=== PATIENT | female | born 1945 | race Caucasian/White ===

== ENCOUNTER → 2016-05-09 | Outpatient (CLI) | payer MEDICARE ==
--- NOTE | 2016-05-09 11:05 | FL ---
EXAMINATION: Cervical and Thoracic Esophagram DATE OF EXAM: 05/09/2016 10:18 AM CLINICAL INDICATION: 71-year-old female with coughing for one year. History of Ambrose fundoplication one year ago as well. Total fluoroscopy time: 1 minute 30 seconds. COMPARISON: 06/20/2015 FINDINGS: The swallowing mechanism is normal and hypopharyngeal anatomy is preserved. The cervical and thoracic portions have a normal course and caliber. Mild tertiary peristaltic contra ctions are noted in the radiographic esophagus. The mucosa is normal and no persistent filling defect is encountered. Patient with prior Ambrose fundoplication. No recurrent hernia seen. Gastroesophageal reflux could not be elicited during the course of the exam with Valsalva and positio nal maneuvers. IMPRESSION: Status post Ambrose fundoplication. No recurrent hernia or other discrete abnormality could be identif ied.
== END | disposition home or self-care (01) ==
LOC: RADFLWHC 09:19
PROVIDERS: ATTEND Surgery
DX: K21.9 Gastro-esophageal reflux disease without esophagitis (principal); Z98.890 Other specified postprocedural states
CPT/HCPCS: 74220

== ENCOUNTER 2016-05-10 06:58 | Day surgery (SDC) | payer MEDICARE ==
[2016-05-08 15:53] VITALS: BMI 34.5
[~2016-05-10 06:58] MED LIST: LACTATED RINGERS 1,000 ML IV SCH
[2016-05-10 07:12] VITALS: TEMP 97.1
[2016-05-10 07:25] LABS: Glucose,Whole Blood 92 mg/dL (75-99)
[2016-05-10] MEDS ORDERED: PROPOFOL 10 MG/ML 20 ML VIAL IV ONE (07:47)
--- NOTE | 2016-05-10 07:54 | P.GSHP ---
History of Present Illness H&P Date: 05/10/16 Chief Complaint: Coughing, history of hiatal hernia repair This a 71-year-old female who has complaints of coughing. Patient denies any GERD and dysphagia. However she has a significant cough. Her recent esophagram shows no evidence of a recurrent hiatal hernia or reflux. There is no obstruction on her upper GI. - Constitutional Constitutional: Reports as per HPI Past Medical History Past Medical History: Asthma, Diabetes Mellitus, GERD/Reflux, Hypertension, Liver Disease, Pneumonia, Thyroid Disorder Additional Past Medical History / Comment(s): DYSPHAGIA, hx migraines, LEFT " eye stroke" hiatal hernia, NON ALCHOLIC CIRRHOSIS, arthritis, diet control diabetic, ulcer, occasional diarrhea, "severe cough from acid reflux" History of Any Multi-Drug Resistant Organisms: None Reported Past Surgical History: Breast Surgery, Cholecystectomy, Hysterectomy Additional Past Surgical History / Comment(s): rectocele, breast biopsies, dmitri fundoplication Past Anesthesia/Blood Transfusion Reactions: Postoperative Nausea & Vomiting ( PONV) Past Psychological History: Anxiety, Depression Smoking Status: Former smoker Past Alcohol Use History: None Reported Additional Past Alcohol Use History / Comment(s): quit smoking 1986, smoked for 25 yrs- < 1 PPD Past Drug Use History: None Reported - Past Family History Mother Family Medical History: Cancer Additional Family Medical History / Comment(s): lung Father Family Medical History: Cancer Additional Family Medical History / Comment(s): lung Brother(s) Family Medical History: Cancer Additional Family Medical History / Comment(s): colon Medications and Allergies Home Medications Medication Instructions Recorded Confirmed Type ALPRAZolam [Xanax] 0.5 mg PO HS 02/28/15 05/10/16 History Albuterol Inhaler [Ventolin 2 puff INHALATION QID PRN 02/28/15 05/10/16 History Inhaler] Atenolol 100 mg PO BID 02/28/15 05/10/16 History Calcium Carbonate/Vitamin D3 2 each PO BID 02/28/15 05/10/16 History [Calcium 600 + Vit D Tablet] Citalopram Hydrobromide [CeleXA] 20 mg PO HS 02/28/15 05/10/16 History Levothyroxine Sodium [Synthroid] 50 mcg PO DAILY 02/28/15 05/10/16 History Montelukast [Singulair] 10 mg PO HS 02/28/15 05/10/16 History Sayre-3 Fatty Acids/Fish Oil [Fish 2 tab PO DAILY 02/28/15 05/10/16 History Oil 1,000 mg Softgel] diphenhydrAMINE [Benadryl] 25 mg PO HS 04/04/15 05/10/16 History Omeprazole 40 mg PO W/SUPPER 11/14/15 05/10/16 History Vitamin E (Dl,Tocopheryl Acet) 400 unit PO DAILY 11/17/15 05/10/16 History [Vitamin E] Aspirin [Adult Low Dose Aspirin EC] 81 mg PO DAILY 05/08/16 05/10/16 History Allergies Allergy/AdvReac Type Severity Reaction Status Date / Time adhesive tape Allergy blisters Verified 05/08/16 15:30 morphine Allergy Vomiting Verified 05/08/16 15:30 Penicillins Allergy numbness Verified 05/08/16 15:30 of lips, hands , feet prochlorperazine Allergy Unknown Verified 05/08/16 15:30 [From Compazine] prochlorperazine edisylate Allergy Unknown Verified 05/08/16 15:30 [From Compazine] prochlorperazine maleate Allergy Unknown Verified 05/08/16 15:30 [From Compazine] esomeprazole magnesium AdvReac Severe BURNING Verified 05/08/16 15:30 [From Nexium] PAIN Surgical - Exam Vital Signs Temp Pulse Resp BP Pulse Ox 97.1 F L 66 18 149/65 93 L 05/10/16 07:10 05/10/16 07:10 05/10/16 07:10 05/10/16 07:10 05/10/16 07:10 - General well developed, no distress - Eyes PERRL - ENT normal pinna - Neck no masses - Respiratory normal expansion - Cardiovascular Rhythm: regular - Abdomen Abdomen: soft, non tender Assessment and Plan Plan: History of hiatal hernia, Coughing. We'll perform EGD
--- NOTE | 2016-05-10 08:00 | P.OP ---
Date of Procedure: 05/10/16 Preoperative Diagnosis: Coughing Postoperative Diagnosis: Mild antral gastritis No evidence of recurrent hiatal hernia No evidence of esophagitis Procedure(s) Performed: EGD Anesthesia: MAC Surgeon: Lc Bailon Pathology: other (Antrum) Condition: stable Disposition: PACU Description of Procedure: The patient's placed on the endoscopy table in the lateral position. She received IV sedation. The gastroscope some placed oropharynx passed into the esophagus and into the stomach. Scope was then placed through the pylorus. The first and second portion of the duodenum appeared normal. Scope was then brought back the antrum this appeared mildly inflamed. A biopsies performed. The scope was unretroflexed and the remainder of the stomach appeared normal. There is no evidence of any inflammation stomach. There is no evidence of a hiatal hernia. The patient a previous fundal plication. The wrap appeared to be in the appropriate position. The distal esophagus appeared normal. The GE junction was at 39 cm. There is no evidence of esophagitis. The proximal esophagus appeared normal. The scope was withdrawn for patient.
[2016-05-10 08:12] LABS: Glucose,Whole Blood 95 mg/dL (75-99)
[2016-05-10] MEDS ORDERED: ONDANSETRON 4 MG/2 ML VIAL IVP ONE (08:17)
[2016-05-10 08:20] VITALS: RESP 16
[2016-05-10 08:33] VITALS: BP 159/76; PULSE 61
== END 2016-05-10 08:52 | disposition home or self-care (01) ==
LOC: ORWHC2ENDO 06:58
PROVIDERS: ATTEND Surgery
DX: K29.50 Unspecified chronic gastritis without bleeding (principal); R05 Cough; Z87.19 Personal history of other diseases of the digestive system; K21.9 Gastro-esophageal reflux disease without esophagitis; J45.909 Unspecified asthma, uncomplicated; J44.9 Chronic obstructive pulmonary disease, unspecified; I10 Essential (primary) hypertension; E07.9 Disorder of thyroid, unspecified; F41.9 Anxiety disorder, unspecified; F32.9 Major depressive disorder, single episode, unspecified; F39 Unspecified mood [affective] disorder; Z79.82 Long term (current) use of aspirin; Z79.899 Other long term (current) drug therapy; Z88.5 Allergy status to narcotic agent; Z88.0 Allergy status to penicillin; Z88.8 Allergy status to other drugs, medicaments and biological substances; Z91.048 Other nonmedicinal substance allergy status; Z87.891 Personal history of nicotine dependence
CPT/HCPCS: 88305; 88342; 43239; J2405; J2704

== ENCOUNTER → 2016-05-31 | Outpatient (CLI) | payer MEDICARE ==
--- NOTE | 2016-06-01 08:48 | MM ---
Reason for exam: screening (asymptomatic). Last mammogram was performed 1 year ago. History: Patient is postmenopausal. Family history of breast cancer in maternal aunt and breast cancer in maternal cousin. Benign right mammotome panel of the right breast, March 07, 2012. Benign stereotactic core biopsy of the left breast, October 21, 2003. Benign excisional biopsy of the right breast, October 05, 1999. Excisional biopsy of the left breast, 1977. Core biopsy of the left breast. Took estrogen for 10 years. Took progesterone for 10 years. Physical Findings: A clinical breast exam by your physician is recommended on an annual basis and results should be correlated with mammographic findings. MG 3D Screening Mammo W/Cad Bilateral CC and MLO view(s) were taken. Prior study comparison: May 31, 2015, bilateral MG screening mammo w CAD. March 12, 2014, bilateral MG screening mammo w CAD. The breast tissue is heterogeneously dense. This may lower the sensitivity of mammography. There is no discrete abnormality. Previous mammotome biopsy within the right and left breast. No significant changes when compared with prior studies. ASSESSMENT: Benign, BI-RAD 2 RECOMMENDATION: Routine screening mammogram of both breasts in 1 year.
== END | disposition home or self-care (01) ==
LOC: RADMAMWWP 11:07
PROVIDERS: ATTEND Family Medicine
DX: Z12.31 Encounter for screening mammogram for malignant neoplasm of breast (principal)
CPT/HCPCS: 77063; G0202

== ENCOUNTER → 2016-11-20 | Outpatient (CLI) | payer MEDICARE ==
--- NOTE | 2016-11-20 09:53 | FL ---
EXAMINATION TYPE: FL UGI air w esophagus DATE OF EXAM: 11/20/2016 8:55 AM COMPARISON: May 09, 2016 CLINICAL HISTORY: Difficulty in swallowing. Preliminary view of the abdomen reveals a normal bowel gas pattern. Upper GI examination was performed according to the single contrast technique. Barium was swallowed without difficulty or delay. Esophageal peristalsis and motility are within normal limits. Postsurgical changes of Matthew fundoplication. There is no evidence for esophagitis, intraluminal mas s, hiatal hernia or gastroesophageal reflux. The stomach has a normal appearance in terms of its siz e, shape and location. No gastric filling defects or ulcer craters are seen. The duodenal bulb and sweep are also free of intraluminal lesion or ulcer crater. Incidental left diverticulum transverse d uodenum and proximal duodenum. IMPRESSION: No evidence for recurrent hiatal hernia or gastroesophageal reflux identified during the course of e study.
== END ==
LOC: RADFLMAIN 08:04
PROVIDERS: ATTEND Surgery
DX: R13.10 Dysphagia, unspecified (principal)
CPT/HCPCS: 74246

== ENCOUNTER → 2017-06-03 | Outpatient (CLI) | payer MEDICARE ==
--- NOTE | 2017-06-04 11:38 | MM ---
Reason for exam: screening (asymptomatic). Last mammogram was performed 1 year ago. History: Patient is postmenopausal. Family history of breast cancer in maternal aunt and breast cancer in maternal cousin. Benign right mammotome panel of the right breast, March 07, 2012. Benign stereotactic core biopsy of the left breast, October 21, 2003. Benign excisional biopsy of the right breast, October 05, 1999. Excisional biopsy of the left breast, 1977. Core biopsy of the left breast. Took estrogen for 10 years. Took progesterone for 10 years. Physical Findings: A clinical breast exam by your physician is recommended on an annual basis and results should be correlated with mammographic findings. MG 3D Screening Mammo W/Cad Bilateral CC and MLO view(s) were taken. Prior study comparison: May 31, 2016, bilateral MG 3d screening mammo w/cad. May 31, 2015, bilateral MG screening mammo w CAD. The breast tissue is heterogeneously dense. This may lower the sensitivity of mammography. No significant changes when compared with prior studies. ASSESSMENT: Benign, BI-RAD 2 RECOMMENDATION: Routine screening mammogram of both breasts in 1 year.
== END | disposition home or self-care (01) ==
LOC: RADMAMWWP 10:40
PROVIDERS: ATTEND Family Medicine
DX: Z12.31 Encounter for screening mammogram for malignant neoplasm of breast (principal)
CPT/HCPCS: 77063; 77067

== ENCOUNTER → 2017-10-03 | Outpatient (CLI) | payer MEDICARE ==
--- NOTE | 2017-10-03 18:36 | US ---
EXAMINATION TYPE: US venous doppler duplex LE BI DATE OF EXAM: 10/03/2017 5:27 PM COMPARISON: NONE CLINICAL HISTORY: R60.0 Edema, M79.604 R leg pain,M79.605 L leg pain. Edema SIDE PERFORMED: Bilateral TECHNIQUE: The lower extremity deep venous system is examined utilizing real time linear array sonog po with graded compression, doppler sonography and color-flow sonography. VESSELS IMAGED: External Iliac Vein (EIV) Common Femoral Vein Deep Femoral Vein Greater Saphenous Vein * Femoral Vein Popliteal Vein Small Saphenous Vein * Proximal Calf Veins (* superficial vessels) Right Leg: Negative for DVT Left Leg: Negative for DVT No evidence of DVT bilateral legs. IMPRESSION: Negative exam. No evidence of deep venous thrombosis in both legs.
== END | disposition home or self-care (01) ==
LOC: RADUSMAIN 16:47
PROVIDERS: ATTEND Family Medicine
DX: R60.0 Localized edema (principal); M79.604 Pain in right leg; M79.605 Pain in left leg
CPT/HCPCS: 93970

== ENCOUNTER → 2017-10-04 | Outpatient (CLI) | payer MEDICARE ==
--- NOTE | 2017-10-05 14:46 | ECHOF ---
Referral Reason:R60.0 Edema, R60.02 Shortness of breath MEASUREMENTS -------- HEIGHT: 160.0 cm WEIGHT: 90.7 kg BP: RVIDd: 3.4 cm (< 3.3) IVSd: 0.9 cm (0.6 - 1.1) LVIDd: 5.4 cm (3.9 - 5.3) LVPWd: 1.0 cm (0.6 - 1.1) IVSs: 1.5 cm LVIDs: 3.1 cm LVPWs: 1.5 cm LAESV Index (A-L): 37.00 ml/m Ao Diam: 2.8 cm (2.0 - 3.7) AV Cusp: 1.7 cm (1.5 - 2.6) LA Diam: 3.9 cm (2.7 - 3.8) MV EXCURSION: 17.007 mm (> 18.000) MV EF SLOPE: 129 mm/s (70 - 150) EPSS: 0.6 cm MV E Carlo: 1.31 m/s MV DecT: 243 ms MV A Carlo: 0.79 m/s MV E/A Ratio: 1.66 RAP: 5.00 mmHg RVSP: 49.39 mmHg FINDINGS -------- Sinus rhythm. This was a technically adequate study. The left ventricular size is normal. Left ventricular wall thickness is normal. Overall left vent ricular systolic function is normal with, an EF between 60 - 65 %. The right ventricle is mildly enlarged. LA is moderately dilated 34-39 ml/m2 RA appears enlarged. Aortic valve is trileaflet and is mildly thickened. There is no evidence of aortic regurgitation. There is no evidence of aortic stenosis. The mitral valve leaflets are mildly thickened. There is trace to mild mitral regurgitation. Mild tricuspid regurgitation present. There is mild pulmonary hypertension. The right ventricular systolic pressure, as measured by Doppler, is 49.39mmHg. Trace/mild (physiologic) pulmonic regurgitation. The aortic root size is normal. Normal inferior vena cava with normal inspiratory collapse consistent with estimated right atrial pre ssure of 5 mmHg. There is no pericardial effusion. CONCLUSIONS -------- 1. Sinus rhythm. 2. This was a technically adequate study. 3. The left ventricular size is normal. 4. Left ventricular wall thickness is normal. 5. Overall left ventricular systolic function is normal with, an EF between 60 - 65 %. 6. LA is moderately dilated 34-39 ml/m2 7. RA appears enlarged. 8. Aortic valve is trileaflet and is mildly thickened. 9. The mitral valve leaflets are mildly thickened. 10. There is trace to mild mitral regurgitation. 11. Mild tricuspid regurgitation present. 12. There is mild pulmonary hypertension. 13. The right ventricular systolic pressure, as measured by Doppler, is 49.39mmHg. 14. Trace/mild (physiologic) pulmonic regurgitation. 15. The aortic root size is normal. 16. There is no pericardial effusion. OPHTHALMIC TECH: Loyd Win RDCS
== END | disposition home or self-care (01) ==
LOC: RADECHMAIN 13:58
PROVIDERS: ATTEND Family Medicine
DX: I27.20 Pulmonary hypertension, unspecified (principal); I08.3 Combined rheumatic disorders of mitral, aortic and tricuspid valves
CPT/HCPCS: 93306

== ENCOUNTER → 2018-06-04 | Outpatient (CLI) | payer MEDICARE ==
--- NOTE | 2018-06-06 08:53 | MM ---
Reason for exam: screening (asymptomatic). Last mammogram was performed 1 year ago. History: Patient is postmenopausal. Family history of breast cancer in maternal aunt and breast cancer in maternal cousin. Benign right mammotome panel of the right breast, March 07, 2012. Benign stereotactic core biopsy of the left breast, October 21, 2003. Benign excisional biopsy of the right breast, October 05, 1999. Excisional biopsy of the left breast, 1977. Core biopsy of the left breast. Took estrogen for 10 years. Took progesterone for 10 years. Physical Findings: A clinical breast exam by your physician is recommended on an annual basis and results should be correlated with mammographic findings. MG 3D Screening Mammo W/Cad Bilateral CC and MLO view(s) were taken. Prior study comparison: June 03, 2017, bilateral MG 3d screening mammo w/cad. May 31, 2016, bilateral MG 3d screening mammo w/cad. May 31, 2015, bilateral MG screening mammo w CAD. March 12, 2014, bilateral MG screening mammo w CAD. The breast tissue is heterogeneously dense. This may lower the sensitivity of mammography. Previous mammotome biopsy in the right and left breast. Gradually increasing left breast calcifications 9 o'clock anterior depth. ASSESSMENT: Incomplete: need additional imaging evaluation, BI-RAD 0 RECOMMENDATION: Special view mammogram of the left breast. [facility] will attempt to contact patient to return for supplemental views.
== END | disposition home or self-care (01) ==
LOC: RADMAMWWP 10:44
PROVIDERS: ATTEND Family Medicine
DX: Z12.31 Encounter for screening mammogram for malignant neoplasm of breast (principal)
CPT/HCPCS: 77063; 77067

== ENCOUNTER → 2018-06-12 | Outpatient (CLI) | payer MEDICARE ==
--- NOTE | 2018-06-12 11:56 | MM ---
Reason for exam: additional evaluation requested from abnormal screening. Last mammogram was performed less than 1 month ago. History: Patient is postmenopausal. Family history of breast cancer in maternal aunt and breast cancer in maternal cousin. Benign right mammotome panel of the right breast, March 07, 2012. Benign stereotactic core biopsy of the left breast, October 21, 2003. Benign excisional biopsy of the right breast, October 05, 1999. Excisional biopsy of the left breast, 1977. Core biopsy of the left breast. Took estrogen for 10 years. Took progesterone for 10 years. Physical Findings: Nurse did not find any significant physical abnormalities on exam. MG 3D Work Up W/Cad LT CC with magnification, LM with magnification, and LM view(s) were taken of the left breast. Prior study comparison: June 04, 2018, bilateral MG 3d screening mammo w/cad. June 03, 2017, bilateral MG 3d screening mammo w/cad. The breast tissue is heterogeneously dense. This may lower the sensitivity of mammography. Finding: There are round, grouped/clustered, linear calcifications in the upper inner quadrant, anterior position of the left breast. Previous mammotome biopsy in the left breast. Increase in number of calcifications and changed since June 04, 2018 and June 03, 2017 but benign morphology. These results were verbally communicated with the patient and result sheet given to the patient on 06/12/18. ASSESSMENT: Benign, BI-RAD 2 RECOMMENDATION: Return to routine screening mammogram schedule for both breasts.
== END ==
LOC: RADMAMWWP 10:43
PROVIDERS: ATTEND Family Medicine
DX: R92.8 Other abnormal and inconclusive findings on diagnostic imaging of breast (principal)
CPT/HCPCS: 77065; G0279; 77061

== ENCOUNTER → 2018-11-19 | Outpatient (CLI) | payer MEDICARE ==
[2018-11-19 10:15] LABS: African American GFR (CKD) >90 (>60 ml/min/1.73 sqM); Blood Urea Nitrogen 14 mg/dL (7-17); Non-African American GFR(CKD) 84 (>60 ml/min/1.73 sqM)
--- NOTE | 2018-11-19 11:17 | CT ---
EXAMINATION TYPE: CT chest w con DATE OF EXAM: 11/19/2018 COMPARISON: 03/29/2015 HISTORY: Cough CT DLP: 492.3 mGycm Automated exposure control for dose reduction was used. CONTRAST: CT scan of the chest is performed with IV Contrast, patient injected with 100 mL of Isovue 300. FINDINGS: LUNGS: Mild interstitial prominence noted which may reflect a degree of interstitial edema. No focal consolidation. Scattered areas of parenchymal scarring and/or linear atelectasis. No consolidative pr ocess. There is no pleural effusion or pneumothorax seen. The tracheobronchial tree is patent. MEDIASTINUM: There are no greater than 1 cm hilar or mediastinal lymph nodes. No pericardial effusi on is seen. Thoracic aorta is of normal caliber. The heart is enlarged. Prominence of the pulmonary artery may reflect underlying pulmonary arterial hypertension. UPPER ABDOMEN: Splenomegaly with AP dimension of 15.6 cm. Changes of cirrhotic liver disease with a s mall adjacent ascites. Gallbladder surgically absent. OTHER: No additional significant abnormality is seen. IMPRESSION: 1. Cardiomegaly with prominence of the pulmonary interstitium may reflect a degree of interstitial ed beto. No pleural effusion or consolidative process. 2. Cirrhotic liver disease with splenomegaly and small amount of upper abdominal ascites.
== END | disposition home or self-care (01) ==
LOC: RADCTMAIN 09:24
PROVIDERS: ATTEND Internal Medicine Critical Care Medicine
DX: I51.7 Cardiomegaly (principal)
CPT/HCPCS: 82565; 84520; 71260; 36415; Q9967

== ENCOUNTER → 2018-12-03 | Outpatient (CLI) | payer MEDICARE ==
--- NOTE | 2018-12-04 07:15 | ECHOF ---
Referral Reason:R07.89 Chest pain MEASUREMENTS -------- HEIGHT: 160.0 cm WEIGHT: 97.5 kg BP: RVIDd: 3.2 cm (< 3.3) IVSd: 1.4 cm (0.6 - 1.1) LVIDd: 4.8 cm (3.9 - 5.3) LVPWd: 1.2 cm (0.6 - 1.1) IVSs: 1.7 cm LVIDs: 3.1 cm LVPWs: 1.9 cm LAESV Index (A-L): 39.24 ml/m Ao Diam: 2.8 cm (2.0 - 3.7) AV Cusp: 1.9 cm (1.5 - 2.6) LA Diam: 4.6 cm (2.7 - 3.8) EPSS: 1.0 cm MV E Carlo: 1.28 m/s MV DecT: 215 ms MV A Carlo: 0.64 m/s MV E/A Ratio: 1.98 AR PHT: 479 ms RAP: 5.00 mmHg RVSP: 62.79 mmHg MV EF SLOPE: 72.45 mm/s (70 - 150) MV EXCURSION: 1.96 cm (> 18.000) FINDINGS -------- Sinus rhythm. This was a technically difficult study with suboptimal apical views. The left ventricular size is normal. There is moderate concentric left ventricular hypertrophy. O verall left ventricular systolic function is normal with, an EF between 55 - 60 %. The diastolic fi lling pattern is normal for the age of the patient. The right ventricle is normal in size. Left atrium is moderately dilated by volume. The right atrium is mildly enlarged. RA appears enlarged Interatrial and interventricular septum intact. There is mild aortic valve sclerosis without stenosis. There is mild aortic regurgitation. Mild mitral annular calcification present. Moderate mitral regurgitation is present. Moderate to severe tricuspid regurgitation present. There is severe pulmonary hypertension. The r ight ventricular systolic pressure, as measured by Doppler, is 62.79mmHg. There is no pulmonic regurgitation present. The aortic root size is normal. IVC not well visualized There is no pericardial effusion. CONCLUSIONS -------- 1. Sinus rhythm. 2. This was a technically difficult study with suboptimal apical views. 3. The left ventricular size is normal. 4. There is moderate concentric left ventricular hypertrophy. 5. Overall left ventricular systolic function is normal with, an EF between 55 - 60 %. 6. The diastolic filling pattern is normal for the age of the patient. 7. The right ventricle is normal in size. 8. Left atrium is moderately dilated by volume. 9. The right atrium is mildly enlarged. 10. RA appears enlarged 11. Interatrial and interventricular septum intact. 12. There is mild aortic valve sclerosis without stenosis. 13. There is mild aortic regurgitation. 14. Mild mitral annular calcification present. 15. Moderate mitral regurgitation is present. 16. Moderate to severe tricuspid regurgitation present. 17. There is severe pulmonary hypertension. 18. The right ventricular systolic pressure, as measured by Doppler, is 62.79mmHg. 19. There is no pulmonic regurgitation present. 20. The aortic root size is normal. 21. IVC not well visualized 22. There is no pericardial effusion. YOUTH DEVELOPMENT SPECIALIST: Carrie Stein RDCS
== END | disposition home or self-care (01) ==
LOC: RADECHMAIN 12:56
PROVIDERS: ATTEND Internal Medicine Critical Care Medicine
DX: I08.3 Combined rheumatic disorders of mitral, aortic and tricuspid valves (principal); I70.8 Atherosclerosis of other arteries; I27.20 Pulmonary hypertension, unspecified
CPT/HCPCS: 93306

== ENCOUNTER → 2019-03-23 | Outpatient (CLI) | payer MEDICARE ==
--- NOTE | 2019-03-23 16:12 | CT ---
EXAMINATION TYPE: CT brain wo con DATE OF EXAM: 03/23/2019 COMPARISON: None HISTORY: headache CT DLP: [address] of the brain was performed. The ventricles, basal cisterns and sulci overlying the cerebral convexities demonstrate mild enlargem ent. There is no evidence for intracranial hemorrhage or sulcal effacement. There is decreased attenuation about the periventricular white matter and deep white matter of both c erebral hemispheres, compatible with chronic small vessel ischemia. Differential diagnosis does inclu de demyelination. No mass effects are seen.No midline shift. Osseous calvarium is intact. If symptoms persist consider MRI. IMPRESSION: 1. Age related atrophic and chronic small vessel ischemic change without acute intracranial process s een at this time.
== END | disposition home or self-care (01) ==
LOC: RADCTMAIN 15:44
PROVIDERS: ATTEND Family Medicine
DX: R51 Headache (principal); Z68.36 Body mass index [BMI] 36.0-36.9, adult
CPT/HCPCS: 70450

== ENCOUNTER → 2019-06-08 | Outpatient (CLI) | payer MEDICARE ==
--- NOTE | 2019-06-08 13:29 | MM ---
Reason for exam: screening (asymptomatic). Last mammogram was performed 1 year ago. History: Patient is postmenopausal. Family history of breast cancer in maternal aunt and breast cancer in maternal cousin. Benign right mammotome panel of the right breast, March 07, 2012. Benign stereotactic core biopsy of the left breast, October 21, 2003. Benign excisional biopsy of the right breast, October 05, 1999. Excisional biopsy of the left breast, 1977. Core biopsy of the left breast. Took estrogen for 10 years. Took progesterone for 10 years. Physical Findings: A clinical breast exam by your physician is recommended on an annual basis and results should be correlated with mammographic findings. MG 3D Screening Mammo W/Cad Bilateral CC and MLO view(s) were taken. Prior study comparison: June 12, 2018, left breast MG 3d work up w/cad LT. June 04, 2018, bilateral MG 3d screening mammo w/cad. June 03, 2017, bilateral MG 3d screening mammo w/cad. May 31, 2016, bilateral MG 3d screening mammo w/cad. May 31, 2015, bilateral MG screening mammo w CAD. The breast tissue is heterogeneously dense. This may lower the sensitivity of mammography. Benign appearing calcifications in the left breast and increased in number of left upper inner quadrant calcifications at anterior depth (5mm group). Right lateral asymmetry 9.5cm from nipple. Bilateral biopsy markers noted. ASSESSMENT: Incomplete: need additional imaging evaluation, BI-RAD 0 RECOMMENDATION: Special view mammogram of both breasts. If lesion persists on supplemental views, image directed ultrasound is recommended. [facility] will attempt to contact patient to return for supplemental views and ultrasound if indicated.
== END | disposition home or self-care (01) ==
LOC: RADMAMWWP 10:54
PROVIDERS: ATTEND Family Medicine
DX: Z12.31 Encounter for screening mammogram for malignant neoplasm of breast (principal)
CPT/HCPCS: 77063; 77067

== ENCOUNTER → 2019-06-10 | Outpatient (CLI) | payer MEDICARE ==
--- NOTE | 2019-06-10 12:07 | MM ---
Reason for exam: additional evaluation requested from abnormal screening. Last mammogram was performed less than 1 month ago. History: Patient is postmenopausal. Family history of breast cancer in maternal aunt and breast cancer in maternal cousin. Benign right mammotome panel of the right breast, March 07, 2012. Benign stereotactic core biopsy of the left breast, October 21, 2003. Benign excisional biopsy of the right breast, October 05, 1999. Excisional biopsy of the left breast, 1977. Core biopsy of the left breast. Took estrogen for 10 years. Took progesterone for 10 years. Physical Findings: Nurse Summary: 1 x 1.5cm nodule in the right breast at 12 o'clock, prominent ridge of tissue (nurse ts). MG 3D Work Up W/Cad ADELITA Bilateral ML view(s) were taken. Spot compression CC view(s) were taken of the right breast. CC with magnification and ML with magnification view(s) were taken of the left breast. Prior study comparison: June 08, 2019, bilateral MG 3d screening mammo w/cad. June 12, 2018, left breast MG 3d work up w/cad LT. The breast tissue is heterogeneously dense. This may lower the sensitivity of mammography. There is a 5mm increasing group of upper inner quadrant anterior depth heterogenous calcifications new from 2018. Biopsy recommended. The previously seen abnormality resolves on additional views and appears as fibroglandular tissue compatible with summation on the right breast. These results were verbally communicated with the patient and result sheet given to the patient on 06/10/19. ASSESSMENT: Suspicious, BI-RAD 4 RECOMMENDATION: Stereotactic core biopsy of the left breast. Called Dr. Bro's office with mammographic findings and has scheduled an appointment for the patient for 07/22/19 at 4:[address] Bro. Biopsy scheduled for 07/03/19 at 8:00. PRELIMINARY REPORT CALLED AND FAXED TO DR. BRO ON 06/10/19.
== END | disposition home or self-care (01) ==
LOC: RADMAMWWP 10:16
PROVIDERS: ATTEND Family Medicine
DX: R92.8 Other abnormal and inconclusive findings on diagnostic imaging of breast (principal)
CPT/HCPCS: 77066; G0279; 77062

== ENCOUNTER → 2019-08-10 | Outpatient (CLI) | payer MEDICARE | END | disposition home or self-care (01) | LOC: LABWHC1 10:01 | PROVIDERS: ATTEND Surgery | DX: U07.1 COVID-19 (principal) | CPT/HCPCS: 87635 ==

== ENCOUNTER → 2019-08-12 | Day surgery (SDC) | payer MEDICARE ==
[2019-08-12 08:37] VITALS: RESP 16
[2019-08-12 09:34] VITALS: BP 150/72; PULSE 77; TEMP 98.5
--- NOTE | 2019-08-12 12:51 | MM ---
EXAMINATION TYPE: MG stereo VAD BX LT DATE OF EXAM: 08/12/2019 COMPARISON: 06/10/2019 CLINICAL HISTORY: Request for biopsy left breast grouped calcifications TECHNIQUE: Stereotactic guided core biopsy of left breast. FINDINGS: The procedure of stereotactic guided core biopsy was explained to the patient. Benefits, alternatives, and risks were discussed. An informed consent was then obtained. [facility]. Shortness pathway was medial approach. I performed the localization, then surgeon, Dr. Parmar performed the remainder of the procedure. A vacuum assisted biopsy gun was used to obtain multiple core samples. The patient tolerated the procedure well without any immediate complication. The patient was kept in the radiology department for short stay after the procedure and then discharged home in stable condition. Targeted calcifications are identified in specimen mammogram. Post biopsy mammogram shows the clip to appear in satisfactory position relative to the targeted area of concern on the preprocedure images. IMPRESSION: SUCCESSFUL, UNCOMPLICATED STEREOTACTIC GUIDED CORE BIOPSY OF AREA OF CONCERN IN THE left BREAST, FULL PATHOLOGY RESULTS TO FOLLOW. Pathology Results: Benign LEFT BREAST, NEEDLE CORE BIOPSIES: Fibrocystic spectrum disease with fibroadenomatoid hyperplasia and coarse intraductal mineralizations. Recommendation Follow up mammogram of the left breast in 6 months. IRENE
== END ==
LOC: RADMAMWWP 08:06
PROVIDERS: ATTEND Surgery
DX: D24.2 Benign neoplasm of left breast (principal); N60.12 Diffuse cystic mastopathy of left breast
CPT/HCPCS: 88305; 19081; J2001

== ENCOUNTER 2019-10-22 15:36 | Inpatient (IN) | payer MEDICARE ==
--- NOTE | 2019-10-22 16:41 | ED ---
General Adult HPI - General Chief complaint: Shortness of Breath Stated complaint: Bilateral Leg Swelling Time Seen by Provider: 10/22/19 16:00 Source: patient, RN notes reviewed, old records reviewed Mode of arrival: wheelchair Limitations: no limitations - History of Present Illness Initial comments: This is a 68-year-old female presents emergency Department with a past medical history significant for congestive heart failure. Patient comes in today because she sits for the last 2 weeks she's becoming more more swollen. Patient states her legs are also swelling and she becoming more short of breath. Patient denies any chest pain or palpitations. Patient denies any recent fever chills or cough per patient denies headache patient denies numbness weakness. Patient denies any abdominal pain. Patient denies any lightheadedness or dizziness. - Related Data Home Medications Medication Instructions Recorded Confirmed ALPRAZolam [Xanax] 0.5 mg PO HS 02/28/15 10/22/19 Calcium Carbonate/Vitamin D3 1 tab PO DAILY 02/28/15 10/22/19 [Calcium 600 + Vit D Tablet] Citalopram Hydrobromide [CeleXA] 20 mg PO DAILY 02/28/15 10/22/19 Montelukast [Singulair] 10 mg PO HS 02/28/15 10/22/19 atenoloL [Atenolol] 100 mg PO BID 02/28/15 10/22/19 Vitamin E (Dl,Tocopheryl Acet) 400 unit PO DAILY 11/17/15 10/22/19 [Vitamin E] Aspirin [Adult Low Dose Aspirin EC] 81 mg PO DAILY 05/08/16 10/22/19 Furosemide [Lasix] 40 mg PO BID 08/05/19 10/22/19 Ibuprofen [Advil] 200 mg PO TID 08/05/19 10/22/19 Albuterol Nebulized [Ventolin 2.5 mg INHALATION Q6H PRN 10/22/19 10/22/19 Nebulized] Ascorbic Acid [Vitamin C] 500 mg PO DAILY 10/22/19 10/22/19 Cholecalciferol [Vitamin D3 (25 1,000 unit PO DAILY 10/22/19 10/22/19 Mcg = 1000 Iu)] Lansoprazole [Prevacid] 30 mg PO DAILY 10/22/19 10/22/19 Levothyroxine Sodium [Euthyrox] 50 mcg PO DAILY 10/22/19 10/22/19 Potassium Chloride ER [K-Dur 20] 20 meq PO DAILY 10/22/19 10/22/19 Pramipexole [Mirapex] 0.125 mg PO HS 10/22/19 10/22/19 Salamol Inhal 1 puff INHALATION RT-DAILY PRN 10/22/19 10/22/19 Spironolactone [Aldactone] 25 mg PO BID 10/22/19 10/22/19 Allergies Allergy/AdvReac Type Severity Reaction Status Date / Time adhesive tape Allergy blisters Verified 10/22/19 17:42 morphine Allergy Vomiting Verified 10/22/19 17:42 Penicillins Allergy numbness Verified 10/22/19 17:42 of lips, hands , feet prochlorperazine Allergy Unknown Verified 10/22/19 17:42 [From Compazine] prochlorperazine edisylate Allergy Unknown Verified 10/22/19 17:42 [From Compazine] prochlorperazine maleate Allergy Unknown Verified 10/22/19 17:42 [From Compazine] esomeprazole magnesium AdvReac Severe BURNING Verified 10/22/19 17:42 [From Nexium] PAIN fluticasone AdvReac Unknown Verified 10/22/19 17:42 [From Advair Diskus] salmeterol AdvReac Unknown Verified 10/22/19 17:42 [From Advair Diskus] Review of Systems ROS Statement: Those systems with pertinent positive or pertinent negative responses have been documented in the HPI. ROS Other: All systems not noted in ROS Statement are negative. Past Medical History Past Medical History: Asthma, Heart Failure, Diabetes Mellitus, GERD/Reflux, Hypertension, Liver Disease, Thyroid Disorder Additional Past Medical History / Comment(s): DYSPHAGIA, hx migraines, LEFT "eye stroke" hiatal hernia, NON ALCHOLIC CIRRHOSIS, arthritis History of Any Multi-Drug Resistant Organisms: None Reported Past Surgical History: Breast Surgery, Cholecystectomy, Hysterectomy Additional Past Surgical History / Comment(s): rectocele, breast biopsies, dmitri fundoplication Past Anesthesia/Blood Transfusion Reactions: Postoperative Nausea & Vomiting (PONV) Past Psychological History: Anxiety, Depression Smoking Status: Never smoker Past Alcohol Use History: None Reported Past Drug Use History: None Reported - Past Family History Mother Family Medical History: Cancer Additional Family Medical History / Comment(s): lung Father Family Medical History: Cancer Additional Family Medical History / Comment(s): lung Brother(s) Family Medical History: Cancer Additional Family Medical History / Comment(s): colon General Exam - General Exam Comments Initial Comments: GENERAL: Patient is well-developed and well-nourished. Patient is nontoxic and well- hydrated and is in mild distress. ENT: Neck is soft and supple. No significant lymphadenopathy is noted. Oropharynx is clear. Moist mucous membranes. Neck has full range of motion without eliciting any pain. EYES: The sclera were anicteric and conjunctiva were pink and moist. Extraocular movements were intact and pupils were equal round and reactive to light. Eyelids were unremarkable. PULMONARY: Unlabored respirations. Good breath sounds bilaterally. Patient's got crackles bilateral bases CARDIOVASCULAR: There is a regular rate and rhythm without any murmurs gallops or rubs. ABDOMEN: Soft and nontender with normal bowel sounds. No palpable organomegaly was noted. There is no palpable pulsatile mass. SKIN: Skin is clear with no lesions or rashes and otherwise unremarkable. NEUROLOGIC: Patient is alert and oriented x3. Cranial nerves II through XII are grossly intact. Motor and sensory are also intact. Normal speech, volume and content. Symmetrical smile. MUSCULOSKELETAL: Normal extremities with adequate strength and full range of motion. 2+ bilaterally edema LYMPHATICS: No significant lymphadenopathy is noted PSYCHIATRIC: Normal psychiatric evaluation. Limitations: no limitations Course Vital Signs 10/22/19 10/22/19 10/22/19 15:58 19:30 20:19 Temperature 98.3 F Pulse Rate 69 69 Respiratory 22 18 Rate Blood Pressure 153/75 157/66 O2 Sat by Pulse 95 94 L 96 Oximetry Medical Decision Making - Medical Decision Making EKG shows normal sinus rhythm at 60 bpm CA interval 166 QRS is 86 QT interval 418 QTC is 444. Patient's EKG shows no ST segment elevation or depression. X-ray shows acute pulmonary edema. Patient received Lasix Nitropaste emergency Department. I spoke with Dr. Prince he agreed to admit the patient admitted the patient wrote admitting orders. - Lab Data Result diagrams: 10/22/19 16:40 10/22/19 16:40 Lab Results 10/22/19 10/22/19 10/22/19 Range/Units 16:40 16:40 16:40 WBC 5.4 (3.8-10.6) k/uL RBC 4.13 (3.80-5.40) m/uL Hgb 10.7 L (11.4-16.0) gm/dL Hct 33.8 L (34.0-46.0) % MCV 82.0 (80.0-100.0) fL MCH 26.0 (25.0-35.0) pg MCHC 31.7 (31.0-37.0) g/dL RDW 15.1 (11.5-15.5) % Plt Count 151 (150-450) k/uL Neutrophils % 71 % Lymphocytes % 17 % Monocytes % 7 % Eosinophils % 3 % Basophils % 0 % Neutrophils # 3.8 (1.3-7.7) k/uL Lymphocytes # 0.9 L (1.0-4.8) k/uL Monocytes # 0.4 (0-1.0) k/uL Eosinophils # 0.2 (0-0.7) k/uL Basophils # 0.0 (0-0.2) k/uL Hypochromasia Marked PT 12.5 H (9.0-12.0) sec INR 1.2 H (<1.2) APTT 27.0 (22.0-30.0) sec Sodium 125 L (137-145) mmol/L Potassium 4.8 (3.5-5.1) mmol/L Chloride 90 L (98-107) mmol/L Carbon Dioxide 29 (22-30) mmol/L Anion Gap 6 mmol/L BUN 17 (7-17) mg/dL Creatinine 0.57 (0.52-1.04) mg/dL Est GFR (CKD-EPI)AfAm >90 (>60 ml/min/1.73 sqM) Est GFR (CKD-EPI)NonAf >90 (>60 ml/min/1.73 sqM) Glucose 99 (74-99) mg/dL POC Glucose (mg/dL) (75-99) mg/dL POC Glu Garden Worker ID Plasma Lactic Acid Kade (0.7-2.0) mmol/L Calcium 8.6 (8.4-10.2) mg/dL Magnesium 2.0 (1.6-2.3) mg/dL Total Bilirubin 1.5 H (0.2-1.3) mg/dL AST 57 H (14-36) U/L ALT 27 (4-34) U/L Alkaline Phosphatase 179 H (38-126) U/L Troponin I (0.000-0.034) ng/mL NT-Pro-B Natriuret Pep pg/mL Total Protein 5.8 L (6.3-8.2) g/dL Albumin 3.4 L (3.5-5.0) g/dL 10/22/19 10/22/19 10/22/19 Range/Units 16:40 16:40 16:40 WBC (3.8-10.6) k/uL RBC (3.80-5.40) m/uL Hgb (11.4-16.0) gm/dL Hct (34.0-46.0) % MCV (80.0-100.0) fL MCH (25.0-35.0) pg MCHC (31.0-37.0) g/dL RDW (11.5-15.5) % Plt Count (150-450) k/uL Neutrophils % % Lymphocytes % % Monocytes % % Eosinophils % % Basophils % % Neutrophils # (1.3-7.7) k/uL Lymphocytes # (1.0-4.8) k/uL Monocytes # (0-1.0) k/uL Eosinophils # (0-0.7) k/uL Basophils # (0-0.2) k/uL Hypochromasia PT (9.0-12.0) sec INR (<1.2) APTT (22.0-30.0) sec Sodium (137-145) mmol/L Potassium (3.5-5.1) mmol/L Chloride (98-107) mmol/L Carbon Dioxide (22-30) mmol/L Anion Gap mmol/L BUN (7-17) mg/dL Creatinine (0.52-1.04) mg/dL Est GFR (CKD-EPI)AfAm (>60 ml/min/1.73 sqM) Est GFR (CKD-EPI)NonAf (>60 ml/min/1.73 sqM) Glucose (74-99) mg/dL POC Glucose (mg/dL) (75-99) mg/dL POC Glu Garden Worker ID Plasma Lactic Acid Kade 1.1 (0.7-2.0) mmol/L Calcium (8.4-10.2) mg/dL Magnesium (1.6-2.3) mg/dL Total Bilirubin (0.2-1.3) mg/dL AST (14-36) U/L ALT (4-34) U/L Alkaline Phosphatase (38-126) U/L Troponin I <0.012 (0.000-0.034) ng/mL NT-Pro-B Natriuret Pep 1750 pg/mL Total Protein (6.3-8.2) g/dL Albumin (3.5-5.0) g/dL 10/22/19 Range/Units 18:45 WBC (3.8-10.6) k/uL RBC (3.80-5.40) m/uL Hgb (11.4-16.0) gm/dL Hct (34.0-46.0) % MCV (80.0-100.0) fL MCH (25.0-35.0) pg MCHC (31.0-37.0) g/dL RDW (11.5-15.5) % Plt Count (150-450) k/uL Neutrophils % % Lymphocytes % % Monocytes % % Eosinophils % % Basophils % % Neutrophils # (1.3-7.7) k/uL Lymphocytes # (1.0-4.8) k/uL Monocytes # (0-1.0) k/uL Eosinophils # (0-0.7) k/uL Basophils # (0-0.2) k/uL Hypochromasia PT (9.0-12.0) sec INR (<1.2) APTT (22.0-30.0) sec Sodium (137-145) mmol/L Potassium (3.5-5.1) mmol/L Chloride (98-107) mmol/L Carbon Dioxide (22-30) mmol/L Anion Gap mmol/L BUN (7-17) mg/dL Creatinine (0.52-1.04) mg/dL Est GFR (CKD-EPI)AfAm (>60 ml/min/1.73 sqM) Est GFR (CKD-EPI)NonAf (>60 ml/min/1.73 sqM) Glucose (74-99) mg/dL POC Glucose (mg/dL) 110 H (75-99) mg/dL POC Glu Garden Worker ID Emerald Moore Plasma Lactic Acid Kade (0.7-2.0) mmol/L Calcium (8.4-10.2) mg/dL Magnesium (1.6-2.3) mg/dL Total Bilirubin (0.2-1.3) mg/dL AST (14-36) U/L ALT (4-34) U/L Alkaline Phosphatase (38-126) U/L Troponin I (0.000-0.034) ng/mL NT-Pro-B Natriuret Pep pg/mL Total Protein (6.3-8.2) g/dL Albumin (3.5-5.0) g/dL Disposition Clinical Impression: Acute pulmonary edema Disposition: ADMITTED IP TO THIS HOSP Referrals: Nan Bro MD [Primary Care Provider] - 1-2 days Time of Disposition: 20:33
--- NOTE | 2019-10-22 16:53 | XR ---
EXAMINATION TYPE: XR chest 2V DATE OF EXAM: 10/22/2019 COMPARISON: Chest CT November 19, 2018. Two-view chest x-ray January 31, 2016. HISTORY: Shortness of breath. TECHNIQUE: Frontal and lateral views of the chest are obtained. FINDINGS: There is cardiomegaly with new moderate central vascular congestion and mild to moderate i nterstitial edema. No pleural effusion or pneumothorax seen bilaterally. The osseous structures are demineralized. IMPRESSION: Suspect CHF exacerbation and there is more prominent cardiomegaly with moderate central vascular congestion and mild to moderate interstitial edema on current study. Correlate clinically.
[2019-10-22 17:05] LABS: Basophils % (A) 0 %; Eosinophils # (A) 0.2 k/uL (0-0.7); Eosinophils % (A) 3 %; HCT 33.8 % (34.0-46.0); HGB 10.7 gm/dL (11.4-16.0); Hypochromasia Marked; Lymphocytes # (A) 0.9 k/uL (1.0-4.8); Lymphocytes % (A) 17 %; MCHC 31.7 g/dL (31.0-37.0); Mean Platelet Volume 7.2; Monocytes # (A) 0.4 k/uL (0-1.0); Monocytes % (A) 7 %; Neutrophils # (A) 3.8 k/uL (1.3-7.7); Neutrophils % (A) 71 %; Platelet Count 151 k/uL (150-450); RBC 4.13 m/uL (3.80-5.40); RDW 15.1 % (11.5-15.5); WBC 5.4 k/uL (3.8-10.6)
[2019-10-22 17:18] LABS: ALT 27 U/L (4-34); AST 57 U/L (14-36); African American GFR (CKD) >90 (>60 ml/min/1.73 sqM); Albumin 3.4 g/dL (3.5-5.0); Alkaline Phosphatase 179 U/L (38-126); Anion Gap 6 mmol/L; Blood Urea Nitrogen 17 mg/dL (7-17); Calcium 8.6 mg/dL (8.4-10.2); Carbon Dioxide 29 mmol/L (22-30); Chloride 90 mmol/L (98-107); Glucose 99 mg/dL (74-99); Non-African American GFR(CKD) >90 (>60 ml/min/1.73 sqM); Potassium 4.8 mmol/L (3.5-5.1); Sodium 125 mmol/L (137-145); Total Bilirubin 1.5 mg/dL (0.2-1.3); Total Protein 5.8 g/dL (6.3-8.2)
[2019-10-22 17:22] LABS: INR 1.2 (<1.2); Prothrombin Time 12.5 sec (9.0-12.0)
[2019-10-22 18:47] LABS: Glucose,Whole Blood 110 mg/dL (75-99)
[2019-10-22] MEDS ORDERED: FUROSEMIDE 10 MG/ML 10 ML VIAL IV STA (20:30)
[2019-10-22] MEDS ORDERED: ALBUTEROL NEBULIZED 2.5 MG/3 ML INHALATION PRN (22:18)
[2019-10-22] MEDS: NITROGLYCERIN OINT 1 INCH/GM PACKET TOPICAL SCH (23:00)
[2019-10-22] MEDS: ALPRAZolam 0.5 MG TAB PO SCH (23:00)
[2019-10-22] MEDS: MONTELUKAST 10 MG TAB PO SCH (23:00)
[2019-10-22] MEDS: PRAMIPEXOLE 0.125 MG TAB PO SCH (23:13)
[2019-10-23 06:14] LABS: Glucose,Whole Blood 108 mg/dL (75-99)
[2019-10-23] MEDS: NITROGLYCERIN OINT 1 INCH/GM PACKET TOPICAL SCH ×4 (09:02→21:28)
[2019-10-23] MEDS: FUROSEMIDE 10 MG/ML 4 ML VIAL IV SCH ×3 (09:02→23:08)
[2019-10-23 09:50] LABS: ALT 25 U/L (4-34); AST 50 U/L (14-36); African American GFR (CKD) >90 (>60 ml/min/1.73 sqM); Albumin 3.3 g/dL (3.5-5.0); Alkaline Phosphatase 143 U/L (38-126); Anion Gap 4 mmol/L; Blood Urea Nitrogen 16 mg/dL (7-17); Calcium 8.3 mg/dL (8.4-10.2); Carbon Dioxide 33 mmol/L (22-30); Chloride 90 mmol/L (98-107); Glucose 103 mg/dL (74-99); Magnesium 1.9 mg/dL (1.6-2.3); Non-African American GFR(CKD) 88 (>60 ml/min/1.73 sqM); Potassium 4.8 mmol/L (3.5-5.1); Sodium 127 mmol/L (137-145); Total Bilirubin 2.1 mg/dL (0.2-1.3); Total Protein 5.6 g/dL (6.3-8.2)
[2019-10-23] MEDS ORDERED: atenoloL 50 MG TAB PO SCH (10:30)
[2019-10-23 11:30] LABS: Glucose,Whole Blood 171 mg/dL (75-99)
--- NOTE | 2019-10-23 11:44 | ECHOF ---
Referral Reason:sob MEASUREMENTS -------- HEIGHT: 160.0 cm WEIGHT: 111.1 kg BP: 123/56 RVIDd: 3.8 cm (< 3.3) IVSd: 1.3 cm (0.6 - 1.1) LVIDd: 5.2 cm (3.9 - 5.3) LVPWd: 1.2 cm (0.6 - 1.1) IVSs: 1.7 cm LVIDs: 2.9 cm LVPWs: 1.5 cm LA Diam: 4.6 cm (2.7 - 3.8) Ao Diam: 2.8 cm (2.0 - 3.7) AV Cusp: 1.6 cm (1.5 - 2.6) LA Diam: 4.7 cm (2.7 - 3.8) MV EXCURSION: 21.171 mm (> 18.000) MV EF SLOPE: 52 mm/s (70 - 150) EPSS: 0.9 cm MV E Carlo: 0.93 m/s MV DecT: 269 ms MV A Carlo: 0.66 m/s MV E/A Ratio: 1.41 RAP: 15.00 mmHg RVSP: 53.57 mmHg FINDINGS -------- Sinus rhythm. This was a techncally difficult study with suboptimal views, , Definity utilized for enhancement of i mages. The left ventricular size is normal. Left ventricular wall thickness is normal. Overall left vent ricular systolic function is low-normal with, an EF between 50 - 55 %. The right ventricle is mild to moderately enlarged. The left atrium is moderately dilated. The right atrial size is normal. The aortic valve is trileaflet, and appears structurally normal. No aortic stenosis or regurgitation. Mild mitral regurgitation is present. [id number] tricuspid regurgitation present. There is moderate pulmonary hypertension. Trace/mild (physiologic) pulmonic regurgitation. The aortic root size is normal. There is no pericardial effusion. CONCLUSIONS -------- 1. Sinus rhythm. 2. This was a techncally difficult study with suboptimal views, , Definity utilized for enhancement o f images. 3. The left ventricular size is normal. 4. Left ventricular wall thickness is normal. 5. Overall left ventricular systolic function is low-normal with, an EF between 50 - 55 %. 6. The right ventricle is mild to moderately enlarged. 7. The left atrium is moderately dilated. 8. The right atrial size is normal. 9. Mild mitral regurgitation is present. 10. [id number] tricuspid regurgitation present. 11. There is moderate pulmonary hypertension. 12. Trace/mild (physiologic) pulmonic regurgitation. CATERING TRUCK DRIVER: Molly Wilde RDCS
[2019-10-23 12:47] VITALS: BMI 43.3
--- NOTE | 2019-10-23 14:12 | P.CRDCN ---
History of Present Illness History of present illness: This is Dotty Willis PA-C dictating a consult on this patient The patient was interviewed and examined by me as well as by Dr. Carmona Case discussed with Dr. Carmona and he agrees with the plan of care HPI Patient is a 74-year-old female with a history significant for hypertension, diabetes, COPD, former smoker, obstructive sleep apnea, fatty liver disease who presented with complaints of shortness of breath and extremity edema. She follows with Dr. Webster in the office. She states that for the last few months she has had progressively worsening edema. She recently noticed that she is retaining fluid up to her abdomen. She has also had progressively worsening dyspnea on exertion. She denies any chest pain or chest pressure. No dizziness or syncope. Upon arrival to the emergency department she was afebrile, pulse in the 60s, respirations 22, blood pressure 153/75, oxygen saturation 95% on room air. Chest x-ray showed moderate central vascular congestion and mild to moderate interstitial edema. EKG showed sinus mechanism with nonspecific T-wave changes. Labs are significant for sodium of 125, BUN 17, creatinine 0.57, elevated bilirubin, AST and alkaline phosphatase. Troponin negative. She has been started on IV Lasix. Patient seen and examined sitting up in the chair. States she was short of breath when she got up from the bed to the chair. Her breathing has improved somewhat with the Lasix. Still has edema. Denies chest pain. Patient denies alcohol She is a former smoker ROS: No fevers, chills or rigors, no cough, phlegm or expectoration, no nausea, vomiting or diarrhea, no hematuria, dysuria, no musculoskeletal complaints, History of "stroke in her eye" no skin lesions. EXAMINATION: Temperature 99.3F, pulse 75, respirations 18, blood pressure 136/60, oxygen saturation 98% on 2 L nasal cannula Patient seen and examined in the chair, in no acute distress Lungs with crackles at the bases bilaterally Heart is regular, systolic murmur audible 2+ pitting edema bilaterally extending up to the abdomen REVIEW OF LABS, ECG & MEDICAL DATA Sodium 127, potassium 4.8, BUN 16, creatinine 0.62, AST 50, ALT 25, alkaline phosphatase 143 IMPRESSION / ASSESSMENT: #1 progressive shortness of breath and lower extremity edema, evidence of heart failure on chest x-ray, likely congestive heart failure #2 hypertension #3 diabetes #4 COPD #5. Former smoker #6. Obstructive sleep apnea intolerant to CPAP #7 history of fatty liver disease #8 abnormal liver enzymes PLAN: Obtain 2-D echocardiogram and Doppler studies to assess cardiac structure and function Monitor CMP Switch from atenolol to Coreg Continue diuresis Daily weights I's and O's Workup and management of abnormal liver enzymes her primary care team Past Medical History Past Medical History: Asthma, Heart Failure, Diabetes Mellitus, GERD/Reflux, Hypertension, Liver Disease, Thyroid Disorder Additional Past Medical History / Comment(s): DYSPHAGIA, hx migraines, LEFT "eye stroke" hiatal hernia, NON ALCHOLIC CIRRHOSIS, arthritis History of Any Multi-Drug Resistant Organisms: None Reported Past Surgical History: Breast Surgery, Cholecystectomy, Hysterectomy Additional Past Surgical History / Comment(s): rectocele, breast biopsies, dmitri fundoplication, gallbladder removal, Past Anesthesia/Blood Transfusion Reactions: Postoperative Nausea & Vomiting (PONV) Past Psychological History: Anxiety, Depression Smoking Status: Former smoker Past Alcohol Use History: None Reported Additional Past Alcohol Use History / Comment(s): quit smoking 1986, smoked for 25 yrs- < 1 PPD Past Drug Use History: None Reported - Past Family History Mother Family Medical History: Cancer Additional Family Medical History / Comment(s): lung Father Family Medical History: Cancer Additional Family Medical History / Comment(s): lung Brother(s) Family Medical History: Cancer, Liver Disease Additional Family Medical History / Comment(s): colon Medications and Allergies Home Medications Medication Instructions Recorded Confirmed Type ALPRAZolam [Xanax] 0.5 mg PO HS 02/28/15 10/22/19 History Calcium Carbonate/Vitamin D3 1 tab PO DAILY 02/28/15 10/22/19 History [Calcium 600 + Vit D Tablet] Citalopram Hydrobromide [CeleXA] 20 mg PO DAILY 02/28/15 10/22/19 History Montelukast [Singulair] 10 mg PO HS 02/28/15 10/22/19 History atenoloL [Atenolol] 100 mg PO BID 02/28/15 10/22/19 History Vitamin E (Dl,Tocopheryl Acet) 400 unit PO DAILY 11/17/15 10/22/19 History [Vitamin E] Aspirin [Adult Low Dose Aspirin EC] 81 mg PO DAILY 05/08/16 10/22/19 History Furosemide [Lasix] 40 mg PO BID 08/05/19 10/22/19 History Ibuprofen [Advil] 200 mg PO TID 08/05/19 10/22/19 History Albuterol Nebulized [Ventolin 2.5 mg INHALATION Q6H PRN 10/22/19 10/22/19 History Nebulized] Ascorbic Acid [Vitamin C] 500 mg PO DAILY 10/22/19 10/22/19 History Cholecalciferol [Vitamin D3 (25 1,000 unit PO DAILY 10/22/19 10/22/19 History Mcg = 1000 Iu)] Lansoprazole [Prevacid] 30 mg PO DAILY 10/22/19 10/22/19 History Levothyroxine Sodium [Euthyrox] 50 mcg PO DAILY 10/22/19 10/22/19 History Potassium Chloride ER [K-Dur 20] 20 meq PO DAILY 10/22/19 10/22/19 History Pramipexole [Mirapex] 0.125 mg PO HS 10/22/19 10/22/19 History Salamol Inhal 1 puff INHALATION RT-DAILY PRN 10/22/19 10/22/19 History Spironolactone [Aldactone] 25 mg PO BID 10/22/19 10/22/19 History Allergies Allergy/AdvReac Type Severity Reaction Status Date / Time adhesive tape Allergy blisters Verified 10/22/19 17:42 morphine Allergy Vomiting Verified 10/22/19 17:42 Penicillins Allergy numbness Verified 10/22/19 17:42 of lips, hands , feet prochlorperazine Allergy Unknown Verified 10/22/19 17:42 [From Compazine] prochlorperazine edisylate Allergy Unknown Verified 10/22/19 17:42 [From Compazine] prochlorperazine maleate Allergy Unknown Verified 10/22/19 17:42 [From Compazine] esomeprazole magnesium AdvReac Severe BURNING Verified 10/22/19 17:42 [From Nexium] PAIN fluticasone AdvReac Unknown Verified 10/22/19 17:42 [From Advair Diskus] salmeterol AdvReac Unknown Verified 10/22/19 17:42 [From Advair Diskus] Physical Exam Vitals: Vital Signs Temp Pulse Pulse Resp BP BP Pulse Ox 10/23/19 12:20 99.3 F 75 18 136/60 98 10/23/19 08:47 99.2 F 75 18 146/61 97 10/23/19 08:00 18 10/23/19 07:43 98 10/23/19 04:00 98.4 F 68 18 123/56 99 10/23/19 00:00 98.2 F 72 18 137/65 97 10/22/19 22:03 71 20 134/63 99 10/22/19 21:32 98.2 F 72 20 137/65 97 10/22/19 20:43 18 148/56 98 10/22/19 20:19 96 10/22/19 19:30 69 18 157/66 94 L 10/22/19 15:58 98.3 F 69 22 153/75 95 Intake and Output 10/22/19 10/23/19 10/23/19 22:59 06:59 14:59 Output Total 950 200 950 Balance -950 -200 -950 Output: Urine 950 200 950 Other: # Voids 1 Weight 109.769 kg 111.3 kg 111 kg Results 10/22/19 16:40 10/23/19 09:23 Cardiac Enzymes 10/22/19 10/22/19 10/23/19 Range/Units 16:40 16:40 09:23 AST 57 H 50 H (14-36) U/L Troponin I <0.012 (0.000-0.034) ng/mL Coagulation 10/22/19 Range/Units 16:40 PT 12.5 H (9.0-12.0) sec APTT 27.0 (22.0-30.0) sec CBC 10/22/19 Range/Units 16:40 WBC 5.4 (3.8-10.6) k/uL RBC 4.13 (3.80-5.40) m/uL Hgb 10.7 L (11.4-16.0) gm/dL Hct 33.8 L (34.0-46.0) % Plt Count 151 (150-450) k/uL Comprehensive Metabolic Panel 10/22/19 10/23/19 Range/Units 16:40 09:23 Sodium 125 L 127 L (137-145) mmol/L Potassium 4.8 4.8 (3.5-5.1) mmol/L Chloride 90 L 90 L (98-107) mmol/L Carbon Dioxide 29 33 H (22-30) mmol/L BUN 17 16 (7-17) mg/dL Creatinine 0.57 0.62 (0.52-1.04) mg/dL Glucose 99 103 H (74-99) mg/dL Calcium 8.6 8.3 L (8.4-10.2) mg/dL AST 57 H 50 H (14-36) U/L ALT 27 25 (4-34) U/L Alkaline Phosphatase 179 H 143 H (38-126) U/L Total Protein 5.8 L 5.6 L (6.3-8.2) g/dL Albumin 3.4 L 3.3 L (3.5-5.0) g/dL Current Medications Generic Name Dose Route Start Last Admin Trade Name Freq PRN Reason Stop Dose Admin Albuterol Sulfate 2.5 mg 10/22/19 22:18 Ventolin Nebulized INHALATION RT-Q6H PRN Shortness Of Breath Alprazolam 0.5 mg 10/22/19 21:00 10/22/19 23:00 Xanax PO 0.5 mg HS REMA Administration Alprazolam 0.25 mg 10/23/19 13:10 Xanax PO TID PRN Anxiety Ascorbic Acid 500 mg 10/24/19 09:00 Vitamin C PO DAILY [facility] Aspirin 81 mg 10/24/19 09:00 Aspirin PO DAILY [facility] Calcium Carbonate 1 each 10/24/19 09:00 Oscal 500+D PO DAILY [facility] Carvedilol 6.25 mg 10/23/19 17:30 Coreg PO BID-W/MEALS [facility] Cholecalciferol 1,000 unit 10/24/19 09:00 Vitamin D3 (25 Mcg = 1000 Iu) PO DAILY [facility] Citalopram Hydrobromide 20 mg 10/24/19 09:00 Celexa PO DAILY [facility] Furosemide 40 mg 10/23/19 08:00 10/23/19 09:02 Lasix IV 40 mg Q8H ERMA Administration Heparin Sodium (Porcine) 5,000 unit 10/23/19 21:00 Heparin SQ Q12HR [facility] Levothyroxine Sodium 50 mcg 10/24/19 06:30 Synthroid PO 0630 ERMA Montelukast Sodium 10 mg 10/22/19 22:30 10/22/19 23:00 Singulair PO 10 mg HS ERMA Administration Nitroglycerin 1 inch 10/22/19 22:00 10/23/19 09:02 Nitro-Bid Oint TOPICAL 1 inch QID [facility] Administration Pantoprazole Sodium 40 mg 10/24/19 07:30 Protonix PO AC-BRKFST [facility] Potassium Chloride 20 meq 10/24/19 09:00 K-Dur 20 PO DAILY [facility] Pramipexole Dihydrochloride 0.125 mg 10/22/19 22:30 10/22/19 23:13 Mirapex PO 0.125 mg HS ERMA Administration Spironolactone 25 mg 10/23/19 21:00 Aldactone PO BID [facility] Vitamin E 400 unit 10/24/19 09:00 Vitamin E PO DAILY [facility] Intake and Output 10/22/19 10/23/19 10/23/19 22:59 06:59 14:59 Output Total 950 200 950 Balance -950 -200 -950 Output: Urine 950 200 950 Other: # Voids 1 Weight 109.769 kg 111.3 kg 111 kg Patient Weight 10/24/19 06:59 Weight 111 kg 10/22/19 16:40 10/23/19 09:23
--- NOTE | 2019-10-23 14:22 | HP ---
HISTORY AND PHYSICAL DATE OF SERVICE: 10/23/2019 CHIEF COMPLAINT: Shortness of breath. HISTORY OF PRESENT ILLNESS: This is a 74-year-old woman with a past medical history of multiple medical issues including asthma, CHF, diabetes type 2, GERD, hypertension, history of liver disease, history of thyroid disorder, dysphagia, being followed by Dr. Nan Bro in the outpatient setting, was complaining of shortness of breath over the past several days with increased intensity. The patient also had some difficulty in walking and the patient also developed weight gain and also bilateral leg edema. The patient came to [facility] and is being diuresed at this time. There is no history of fever, chills or rigors. No history of headache, loss of consciousness, or seizures at this time. PAST MEDICAL HISTORY: History of asthma, CHF, diabetes, GERD, hypertension, known alcoholic cirrhosis. MEDICATIONS: Prior to admission include atenolol, vitamin, Aldactone, Salman, Mirapex, K-Dur, Singulair, levothyroxine, Prevacid, Advair, Lasix, Celexa, vitamin D3, aspirin, vitamin C, albuterol, Xanax. The doses are reviewed. ALLERGIES: Multiple allergies are ADHESIVE TAPE, MORPHINE, PENICILLIN, COMPAZINE, NEXIUM, ADVAIR DISKUS. FAMILY HISTORY: History of lung cancer in the family. SOCIAL HISTORY: History of smoking. No history of current smoking, alcohol intake. REVIEW OF SYSTEMS: ENT: No diminished vision. CARDIOVASCULAR SYSTEM: As mentioned earlier. GI; No nausea. : No dysuria. NERVOUS SYSTEM: No numbness or weakness. ALLERGY/IMMUNOLOGY: No asthma or hay fever. MUSCULOSKELETAL: As mentioned earlier. HEMATOLOGY: No history of anemia. ENDOCRINE: Hypothyroidism present. . CONSTITUTIONAL: As mentioned earlier. DERMATOLOGY: Negative. PSYCHIATRY: As mentioned earlier. PHYSICAL EXAM: Patient is alert and oriented x3. Pulse is 75, blood pressure 133/60, respiration 18, temperature 99.3, pulse ox 98% on 2 L. HEENT: Conjunctivae normal. Oral mucosa moist. NECK: Jugular venous distention in the root of the neck. CARDIOVASCULAR SYSTEM: S1, S2, muffled. RESPIRATIONS: Breath sounds diminished at the based, a few scattered rhonchi, no crackles. ABDOMEN: Soft, obese, nontender. LEGS: Bilateral leg edema. NERVOUS SYSTEM: Higher functions as mentioned earlier. Moves all four limbs. No focal motor deficits. LYMPHATICS: No lymph node enlargement in the neck of axillae. SKIN: No ulcer, no rashes. JOINTS: No active arthropathy. LABS: WBC 5.3, hemoglobin is 10.7, INR 1.2 sodium 125, and glucose 110, total bilirubin is 1.5, AST is 27, alkaline phosphatase is 117, albumin is 3.4. ASSESSMENT: 1. Congestive heart failure acute exacerbation with acute on chronic diastolic dysfunction possibly. 2. Hyponatremia. 3. History of nonalcoholic cirrhosis liver. 4. Anemia, normocytic anemia of chronic disease. 5. Elevated bilirubin and AST secondary to cirrhosis of the liver. 6. Hypoalbuminemia with mild protein calorie malnutrition. 7. Obesity with body mass index of 43.4. 8. History of asthma. 9. History of diabetes mellitus type 2. 10.Gastroesophageal reflux disease. 11.Hypertension. 12.Hypothyroidism. 13.History of dysphagia. 14.History of migraine. 15.Left eye stroke. 16.History of hiatal hernia. 17.History of degenerative joint disease. 18.History of cholecystectomy, hysterectomy. 19.History of anxiety, depression. 20.Remote history of nicotine dependence. 21.FULL CODE. RECOMMENDATION: In this 74-year-old woman who presented with multiple complex medical issues, will monitor the patient closely, continue with the current management and symptomatic treatment. The chest x-ray personally reviewed showed significant CHF. IV diuretics, monitor fluid/electrolyte balance closely at 1400 mL fluid . Also recommend repeat labs. Cardiology evaluation. Otherwise, resume the home medications. Guarded prognosis because of multiple complex medical issues. Further recommendations to follow. MMODL / IJN: [id number] / IRENE
--- NOTE | 2019-10-23 15:16 | US ---
EXAMINATION TYPE: US abdomen limited DATE OF EXAM: 10/23/2019 COMPARISON: NONE CLINICAL HISTORY: ascites. No evidence of ascites. IMPRESSION: No ascites seen.
[2019-10-23 15:33] LABS: ALT 22 U/L (4-34); AST 49 U/L (14-36); African American GFR (CKD) >90 (>60 ml/min/1.73 sqM); Albumin 3.1 g/dL (3.5-5.0); Alkaline Phosphatase 122 U/L (38-126); Anion Gap 6 mmol/L; Blood Urea Nitrogen 16 mg/dL (7-17); Calcium 8.3 mg/dL (8.4-10.2); Carbon Dioxide 32 mmol/L (22-30); Chloride 89 mmol/L (98-107); Glucose 123 mg/dL (74-99); Non-African American GFR(CKD) 88 (>60 ml/min/1.73 sqM); Potassium 4.1 mmol/L (3.5-5.1); Sodium 127 mmol/L (137-145); Total Bilirubin 1.7 mg/dL (0.2-1.3); Total Protein 5.3 g/dL (6.3-8.2)
[2019-10-23 16:36] LABS: Glucose,Whole Blood 111 mg/dL (75-99)
[2019-10-23] MEDS: carvediloL 6.25 MG TAB PO SCH (16:48)
[2019-10-23] MEDS ORDERED: LEVOFLOXACIN 500MG-D5W PMX 500 MG in DEXTROSE/WATER 1 100ML.BAG IVPB SCH (18:00)
[2019-10-23 20:06] LABS: Glucose,Whole Blood 152 mg/dL (75-99)
[2019-10-23] MEDS: SPIRONOLACTONE 25 MG TAB PO SCH (21:27)
[2019-10-23] MEDS: PRAMIPEXOLE 0.125 MG TAB PO SCH (21:27)
[2019-10-23] MEDS: MONTELUKAST 10 MG TAB PO SCH (21:27)
[2019-10-23] MEDS: HEPARIN SODIUM,PORCINE 5,000 UNIT/ML 1 ML VIAL SQ SCH (21:27)
[2019-10-23] MEDS: ALPRAZolam 0.5 MG TAB PO SCH (21:27)
--- NOTE | 2019-10-23 23:09 | P.CONS ---
History of Present Illness - Reason for Consult Consult date: 10/23/19 Abdominal wall cellulitis Requesting physician: Salinas Prince - Chief Complaint Increasing abdominal swelling and redness 1 day - History of Present Illness Patient is a 74-year-old female presenting to the ER with chief complaints of increasing shortness of breath also with increasing abdominal and lower extremity swelling that has been progressively getting worse for the last 2 weeks, patient on admission to the hospital yesterday was afebrile and did have a normal white count chest x-ray was suggestive of congestive heart failure patient has been admitted to the cardiac floor for management of underlying congestive heart failure , this morning the patient was noticed to have lower abdominal wall redness and the patient be complaining of pain and abdominal wall to be more of a dull aching to sharp with intensity 6-7 out of 10 patient currently doesn't have nuchal wound or any drainage has been running a low-grade fever patient has been diagnosed with abdominal wall cellulitis patient was started on Levaquin because of her penicillin ALLERGY and infection disease was consulted for further management of antibiotic therapy Review of Systems Positive point has been mentioned in the HPI rest of the systems are negative Past Medical History Past Medical History: Asthma, Heart Failure, Diabetes Mellitus, GERD/Reflux, Hypertension, Liver Disease, Thyroid Disorder Additional Past Medical History / Comment(s): DYSPHAGIA, hx migraines, LEFT "eye stroke" hiatal hernia, NON ALCHOLIC CIRRHOSIS, arthritis History of Any Multi-Drug Resistant Organisms: None Reported Past Surgical History: Breast Surgery, Cholecystectomy, Hysterectomy Additional Past Surgical History / Comment(s): rectocele, breast biopsies, dmitri fundoplication, gallbladder removal, Past Anesthesia/Blood Transfusion Reactions: Postoperative Nausea & Vomiting (PONV) Past Psychological History: Anxiety, Depression Smoking Status: Former smoker Past Alcohol Use History: None Reported Additional Past Alcohol Use History / Comment(s): quit smoking 1986, smoked for 25 yrs- < 1 PPD Past Drug Use History: None Reported - Past Family History Mother Family Medical History: Cancer Additional Family Medical History / Comment(s): lung Father Family Medical History: Cancer Additional Family Medical History / Comment(s): lung Brother(s) Family Medical History: Cancer, Liver Disease Additional Family Medical History / Comment(s): colon Medications and Allergies Home Medications Medication Instructions Recorded Confirmed Type ALPRAZolam [Xanax] 0.5 mg PO HS 02/28/15 10/22/19 History Calcium Carbonate/Vitamin D3 1 tab PO DAILY 02/28/15 10/22/19 History [Calcium 600 + Vit D Tablet] Citalopram Hydrobromide [CeleXA] 20 mg PO DAILY 02/28/15 10/22/19 History Montelukast [Singulair] 10 mg PO HS 02/28/15 10/22/19 History atenoloL [Atenolol] 100 mg PO BID 02/28/15 10/22/19 History Vitamin E (Dl,Tocopheryl Acet) 400 unit PO DAILY 11/17/15 10/22/19 History [Vitamin E] Aspirin [Adult Low Dose Aspirin EC] 81 mg PO DAILY 05/08/16 10/22/19 History Furosemide [Lasix] 40 mg PO BID 08/05/19 10/22/19 History Ibuprofen [Advil] 200 mg PO TID 08/05/19 10/22/19 History Albuterol Nebulized [Ventolin 2.5 mg INHALATION Q6H PRN 10/22/19 10/22/19 History Nebulized] Ascorbic Acid [Vitamin C] 500 mg PO DAILY 10/22/19 10/22/19 History Cholecalciferol [Vitamin D3 (25 1,000 unit PO DAILY 10/22/19 10/22/19 History Mcg = 1000 Iu)] Lansoprazole [Prevacid] 30 mg PO DAILY 10/22/19 10/22/19 History Levothyroxine Sodium [Euthyrox] 50 mcg PO DAILY 10/22/19 10/22/19 History Potassium Chloride ER [K-Dur 20] 20 meq PO DAILY 10/22/19 10/22/19 History Pramipexole [Mirapex] 0.125 mg PO HS 10/22/19 10/22/19 History Salamol Inhal 1 puff INHALATION RT-DAILY PRN 10/22/19 10/22/19 History Spironolactone [Aldactone] 25 mg PO BID 10/22/19 10/22/19 History Allergies Allergy/AdvReac Type Severity Reaction Status Date / Time adhesive tape Allergy blisters Verified 10/22/19 17:42 morphine Allergy Vomiting Verified 10/22/19 17:42 Penicillins Allergy numbness Verified 10/22/19 17:42 of lips, hands , feet prochlorperazine Allergy Unknown Verified 10/22/19 17:42 [From Compazine] prochlorperazine edisylate Allergy Unknown Verified 10/22/19 17:42 [From Compazine] prochlorperazine maleate Allergy Unknown Verified 10/22/19 17:42 [From Compazine] esomeprazole magnesium AdvReac Severe BURNING Verified 10/22/19 17:42 [From Nexium] PAIN fluticasone AdvReac Unknown Verified 10/22/19 17:42 [From Advair Diskus] salmeterol AdvReac Unknown Verified 10/22/19 17:42 [From Advair Diskus] Physical Exam Vitals: Vital Signs Temp Pulse Pulse Resp BP BP Pulse Ox 10/23/19 16:00 71 18 10/23/19 15:40 98.9 F 71 18 130/52 100 10/23/19 12:20 99.3 F 75 18 136/60 98 10/23/19 08:47 99.2 F 75 18 146/61 97 10/23/19 08:00 18 10/23/19 07:43 98 10/23/19 04:00 98.4 F 68 18 123/56 99 10/23/19 00:00 98.2 F 72 18 137/65 97 10/22/19 22:03 71 20 134/63 99 10/22/19 21:32 98.2 F 72 20 137/65 97 10/22/19 20:43 18 148/56 98 10/22/19 20:19 96 10/22/19 19:30 69 18 157/66 94 L Intake and Output 10/23/19 10/23/19 10/23/19 06:59 14:59 22:59 Output Total 200 950 Balance -200 -950 Output: Urine 200 950 Other: # Voids 1 Weight 111.3 kg 111 kg GENERAL DESCRIPTION: An elderly female lying in bed, no distress. No tachypnea or accessory muscle of respiration use. HEENT: Shows Pallor , no scleral icterus. Oral mucous membrane is dry. No pharyngeal erythema or thrush NECK: Trachea central, no thyromegaly. LUNGS: Unlabored breathing. Decreased breath sound at the base HEART: S1, S2, regular rate and rhythm. No loud murmur ABDOMEN: Soft, patient did have significant abdominal distention with lower abdominal wall erythema warm to touch currently do not have an open wound or any drainage EXTREMITIES: 2+ edema of feet. SKIN: No rash, no masses palpable. NEUROLOGICAL: The patient is awake, alert, oriented x3, mood and affect normal. Results CBC & Chem 7: 10/22/19 16:40 10/23/19 14:38 Labs: Abnormal Lab Results - Last 24 Hours (Table) 10/22/19 10/22/19 10/22/19 Range/Units 16:40 16:40 16:40 Hgb 10.7 L (11.4-16.0) gm/dL Hct 33.8 L (34.0-46.0) % Lymphocytes # 0.9 L (1.0-4.8) k/uL PT 12.5 H (9.0-12.0) sec INR 1.2 H (<1.2) Sodium 125 L (137-145) mmol/L Chloride 90 L (98-107) mmol/L Carbon Dioxide (22-30) mmol/L Glucose (74-99) mg/dL POC Glucose (mg/dL) (75-99) mg/dL Calcium (8.4-10.2) mg/dL Total Bilirubin 1.5 H (0.2-1.3) mg/dL AST 57 H (14-36) U/L Alkaline Phosphatase 179 H (38-126) U/L Total Protein 5.8 L (6.3-8.2) g/dL Albumin 3.4 L (3.5-5.0) g/dL 10/22/19 10/23/19 10/23/19 Range/Units 18:45 06:00 09:23 Hgb (11.4-16.0) gm/dL Hct (34.0-46.0) % Lymphocytes # (1.0-4.8) k/uL PT (9.0-12.0) sec INR (<1.2) Sodium 127 L (137-145) mmol/L Chloride 90 L (98-107) mmol/L Carbon Dioxide 33 H (22-30) mmol/L Glucose 103 H (74-99) mg/dL POC Glucose (mg/dL) 110 H 108 H (75-99) mg/dL Calcium 8.3 L (8.4-10.2) mg/dL Total Bilirubin 2.1 H (0.2-1.3) mg/dL AST 50 H (14-36) U/L Alkaline Phosphatase 143 H (38-126) U/L Total Protein 5.6 L (6.3-8.2) g/dL Albumin 3.3 L (3.5-5.0) g/dL 10/23/19 10/23/19 Range/Units 11:28 14:38 Hgb (11.4-16.0) gm/dL Hct (34.0-46.0) % Lymphocytes # (1.0-4.8) k/uL PT (9.0-12.0) sec INR (<1.2) Sodium 127 L (137-145) mmol/L Chloride 89 L (98-107) mmol/L Carbon Dioxide 32 H (22-30) mmol/L Glucose 123 H (74-99) mg/dL POC Glucose (mg/dL) 171 H (75-99) mg/dL Calcium 8.3 L (8.4-10.2) mg/dL Total Bilirubin 1.7 H (0.2-1.3) mg/dL AST 49 H (14-36) U/L Alkaline Phosphatase (38-126) U/L Total Protein 5.3 L (6.3-8.2) g/dL Albumin 3.1 L (3.5-5.0) g/dL Assessment and Plan Assessment: 1-Patient presented to the hospital with increasing swelling of her lower extremity as well as abdominal wall in this patient has been diagnosed with congestive heart failure and fluid overload now with progressive redness of the lower abdominal wall with concern for developing cellulitis likely from gram- positive skin david 2-penicillin ALLERGY With a history of rash no history of anaphylaxis has taken Keflex without any problem (1) Abdominal wall cellulitis Current Visit: Yes Status: Acute Code(s): L03.311 - CELLULITIS OF ABDOMINAL WALL SNOMED Code(s): 78869492 (2) Penicillin allergy Current Visit: Yes Status: Acute Code(s): Z88.0 - ALLERGY STATUS TO PENICILLIN SNOMED Code(s): 01604009 Plan: 1- discontinue Levaquin 2- cefazolin 2 g every 8 hours We will follow on clinical condition and cultures to further adjust medication if needed Thank you for this consultation will follow this patient with you
[2019-10-24 05:45] LABS: Basophils % (A) 0 %; Eosinophils # (A) 0.1 k/uL (0-0.7); Eosinophils % (A) 3 %; HCT 29.2 % (34.0-46.0); Hypochromasia Marked; Lymphocytes # (A) 0.5 k/uL (1.0-4.8); Lymphocytes % (A) 12 %; MCH 25.1 pg (25.0-35.0); MCHC 30.9 g/dL (31.0-37.0); MCV 81.4 fL (80.0-100.0); Mean Platelet Volume 7.3; Monocytes # (A) 0.4 k/uL (0-1.0); Monocytes % (A) 9 %; Neutrophils # (A) 3.2 k/uL (1.3-7.7); Neutrophils % (A) 74 %; Platelet Count 107 k/uL (150-450); RBC 3.58 m/uL (3.80-5.40); RDW 15.2 % (11.5-15.5); WBC 4.3 k/uL (3.8-10.6)
[2019-10-24 06:16] LABS: African American GFR (CKD) >90 (>60 ml/min/1.73 sqM); Anion Gap 3 mmol/L; Blood Urea Nitrogen 16 mg/dL (7-17); Carbon Dioxide 34 mmol/L (22-30); Chloride 90 mmol/L (98-107); Glucose 115 mg/dL (74-99); Non-African American GFR(CKD) >90 (>60 ml/min/1.73 sqM); Sodium 127 mmol/L (137-145)
[2019-10-24 06:17] LABS: Glucose,Whole Blood 126 mg/dL (75-99)
[2019-10-24] MEDS: carvediloL 6.25 MG TAB PO SCH ×2 (06:20→16:52)
[2019-10-24] MEDS: LEVOTHYROXINE 50 MCG TAB PO SCH (06:20)
[2019-10-24] MEDS: PANTOPRAZOLE 40 MG TABLET PO SCH (06:20)
[2019-10-24] MEDS: CITALOPRAM HYDROBROMIDE 20 MG TAB PO SCH (09:28)
[2019-10-24] MEDS: VITAMIN E (DL,TOCOPHERYL ACET) 400 UNIT CAP PO SCH (09:28)
[2019-10-24] MEDS: SPIRONOLACTONE 25 MG TAB PO SCH ×2 (09:28→20:33)
[2019-10-24] MEDS: HEPARIN SODIUM,PORCINE 5,000 UNIT/ML 1 ML VIAL SQ SCH ×2 (09:28→20:34)
[2019-10-24] MEDS: ASCORBIC ACID 500 MG TAB PO SCH (09:28)
[2019-10-24] MEDS: CALCIUM CARB-VIT D 500MG-200UN 1 EACH TAB PO SCH (09:28)
[2019-10-24] MEDS: CHOLECALCIFEROL 1,000 UNIT TAB PO SCH (09:29)
[2019-10-24] MEDS: ASPIRIN 81 MG PO SCH (09:29)
[2019-10-24] MEDS: NITROGLYCERIN OINT 1 INCH/GM PACKET TOPICAL SCH ×4 (09:29→20:29)
[2019-10-24] MEDS: FUROSEMIDE 10 MG/ML 4 ML VIAL IV SCH ×3 (09:29→23:00)
[2019-10-24] MEDS: POTASSIUM CHLORIDE ER 20 MEQ TAB.ER PO SCH (09:29)
[2019-10-24 12:52] LABS: Glucose,Whole Blood 115 mg/dL (75-99)
--- NOTE | 2019-10-24 17:15 | P.PN ---
Subjective This is Dotty Willis PA-C dictating a progress note on this patient The patient was interviewed and examined by me as well as by Dr. Carmona Case discussed with Dr. Carmona and he agrees with the plan of care HPI/interval history Patient is a 74-year-old female with a history significant for hypertension, diabetes, COPD, former smoker, obstructive sleep apnea, fatty liver disease who presented with complaints of shortness of breath and extremity edema. She was found to have signs of fluid overload on her chest x-ray and has been started on Lasix. She is also being treated for abdominal cellulitis. Patient seen and examined resting in bed. Continues to be short of breath. Denies any chest pain. States her abdomen is yeast distiller. EXAMINATION She is afebrile, pulse in the 60s, respirations 18, blood pressure 102/51, oxygen saturation 98% on 3 L nasal cannula Patient seen and examined resting in bed, in no acute distress Heart is regular, systolic murmur audible Lungs are diminished bilaterally 1-2+ pitting lower extremity edema bilaterally REVIEW OF LABS, ECG WBC 4.3, hemoglobin 9, platelets 107, potassium 4.0, BUN 16, creatinine 0.56 Echocardiogram shows EF 50-55%, moderate pulmonary hypertension IMPRESSION / ASSESSMENT: #1 progressive shortness of breath and lower extremity edema, evidence of heart failure on chest x-ray, likely congestive heart failure, diastolic, EF 50-55% #2 hypertension #3 diabetes #4 COPD #5. Former smoker #6. Obstructive sleep apnea intolerant to CPAP #7 history of fatty liver disease #8 abnormal liver enzymes #9 pulmonary hypertension #10 abdominal cellulitis #11 anemia PLAN: Continue IV diuretics Accurate daily weights intake and output Monitor BMP continue Coreg Objective - Vital Signs Vital signs: Vital Signs Temp 98.2 F 10/24/19 16:40 Pulse 61 10/24/19 16:40 Resp 18 10/24/19 16:40 BP 102/51 10/24/19 16:40 Pulse Ox 98 10/24/19 16:40 Intake & Output 10/23/19 10/24/19 10/24/19 18:59 06:59 18:59 Intake Total 240 Output Total 950 200 Balance -950 -200 240 Weight 111 kg 112.5 kg Intake: Oral 240 Output: Urine 950 200 Other: # Voids 2 - Labs CBC & Chem 7: 10/24/19 05:21 10/24/19 05:21 Labs: Abnormal Lab Results - Last 24 Hours (Table) 10/23/19 10/24/19 10/24/19 Range/Units 20:04 05:21 05:21 RBC 3.58 L (3.80-5.40) m/uL Hgb 9.0 L D (11.4-16.0) gm/dL Hct 29.2 L (34.0-46.0) % MCHC 30.9 L (31.0-37.0) g/dL Plt Count 107 L (150-450) k/uL Lymphocytes # 0.5 L (1.0-4.8) k/uL Sodium 127 L (137-145) mmol/L Chloride 90 L (98-107) mmol/L Carbon Dioxide 34 H (22-30) mmol/L Glucose 115 H (74-99) mg/dL POC Glucose (mg/dL) 152 H (75-99) mg/dL Calcium 8.0 L (8.4-10.2) mg/dL 10/24/19 10/24/19 Range/Units 06:15 12:51 RBC (3.80-5.40) m/uL Hgb (11.4-16.0) gm/dL Hct (34.0-46.0) % MCHC (31.0-37.0) g/dL Plt Count (150-450) k/uL Lymphocytes # (1.0-4.8) k/uL Sodium (137-145) mmol/L Chloride (98-107) mmol/L Carbon Dioxide (22-30) mmol/L Glucose (74-99) mg/dL POC Glucose (mg/dL) 126 H 115 H (75-99) mg/dL Calcium (8.4-10.2) mg/dL
[2019-10-24 17:52] LABS: Glucose,Whole Blood 161 mg/dL (75-99)
[2019-10-24] MEDS: ALPRAZolam 0.5 MG TAB PO SCH (20:33)
[2019-10-24] MEDS: PRAMIPEXOLE 0.125 MG TAB PO SCH (20:34)
[2019-10-24] MEDS: MONTELUKAST 10 MG TAB PO SCH (20:34)
[2019-10-24 20:42] LABS: Glucose,Whole Blood 191 mg/dL (75-99)
--- NOTE | 2019-10-24 22:44 | PN ---
PROGRESS NOTE DATE OF SERVICE: 10/24/2019. REASON FOR FOLLOW UP: Abdominal wall cellulitis. INTERVAL HISTORY: Patient is currently afebrile. Patient is breathing comfortably. The patient denies having any chest pain. No shortness of breath or cough. No abdominal pain or diarrhea. PHYSICAL EXAMINATION: Blood pressure 135/61 with a pulse of 72, temperature 98.7. She is 100% on 2 L nasal cannula. General description is an elderly female lying in bed in no distress. Respiratory system: Unlabored breathing. Clear to auscultation anteriorly. Heart S1, S2. Regular rate and rhythm. ABDOMEN: Soft, distended, but the redness has improved. LABS: Hemoglobin 9.4, white count 4.3. DIAGNOSTIC IMPRESSION AND PLAN: Patient with abdominal wall cellulitis in this patient who did have evidence of fluid overload with diffuse swelling, covered on cefazolin and has shown clinical improvement to continue cefazolin and monitor clinical course closely. MMODL / IJN: [id number] /
[2019-10-25] MEDS ORDERED: HEPARIN SODIUM,PORCINE 5,000 UNIT/ML 1 ML VIAL IV PRN (04:36)
[2019-10-25] MEDS ORDERED: HEPARIN SODIUM,PORCINE 5,000 UNIT/ML 1 ML VIAL IV ONE (04:36)
[2019-10-25] MEDS ORDERED: HEPARIN SOD,PORK IN 0.45% NACL 25,000 UNIT in 0.45% NACL 1 250ML.BAG IV SCH (04:45)
[2019-10-25] MEDS ORDERED: METOPROLOL TARTRATE 25 MG TAB PO SCH (04:45)
[2019-10-25] MEDS: LEVOTHYROXINE 50 MCG TAB PO SCH (04:56)
[2019-10-25] MEDS: carvediloL 3.125 MG TAB PO SCH ×3 (04:56→18:49)
[2019-10-25] MEDS: PANTOPRAZOLE 40 MG TABLET PO SCH (04:56)
[2019-10-25 06:12] LABS: Glucose,Whole Blood 133 mg/dL (75-99)
[2019-10-25 07:26] LABS: African American GFR (CKD) >90 (>60 ml/min/1.73 sqM); Anion Gap 3 mmol/L; Blood Urea Nitrogen 17 mg/dL (7-17); Calcium 7.9 mg/dL (8.4-10.2); Carbon Dioxide 36 mmol/L (22-30); Chloride 92 mmol/L (98-107); Glucose 113 mg/dL (74-99); Non-African American GFR(CKD) 88 (>60 ml/min/1.73 sqM); Potassium 3.8 mmol/L (3.5-5.1); Sodium 131 mmol/L (137-145)
[2019-10-25 07:48] LABS: Basophils % (A) 0 %; Eosinophils # (A) 0.1 k/uL (0-0.7); Eosinophils % (A) 3 %; HCT 28.2 % (34.0-46.0); Hypochromasia Marked; Lymphocytes # (A) 0.5 k/uL (1.0-4.8); Lymphocytes % (A) 13 %; MCH 26.6 pg (25.0-35.0); MCHC 32.1 g/dL (31.0-37.0); MCV 82.7 fL (80.0-100.0); Mean Platelet Volume 7.5; Monocytes # (A) 0.3 k/uL (0-1.0); Monocytes % (A) 7 %; Neutrophils # (A) 2.7 k/uL (1.3-7.7); Neutrophils % (A) 74 %; Platelet Count 101 k/uL (150-450); RBC 3.41 m/uL (3.80-5.40); WBC 3.7 k/uL (3.8-10.6)
[2019-10-25] MEDS: SPIRONOLACTONE 25 MG TAB PO SCH ×2 (08:26→20:00)
[2019-10-25] MEDS: ASCORBIC ACID 500 MG TAB PO SCH (08:26)
[2019-10-25] MEDS: CITALOPRAM HYDROBROMIDE 20 MG TAB PO SCH (08:26)
[2019-10-25] MEDS: NITROGLYCERIN OINT 1 INCH/GM PACKET TOPICAL SCH (08:26)
[2019-10-25] MEDS: ASPIRIN 81 MG PO SCH (08:26)
[2019-10-25] MEDS: FUROSEMIDE 10 MG/ML 4 ML VIAL IV SCH ×3 (08:26→23:15)
[2019-10-25] MEDS: VITAMIN E (DL,TOCOPHERYL ACET) 400 UNIT CAP PO SCH (08:26)
[2019-10-25] MEDS: POTASSIUM CHLORIDE ER 20 MEQ TAB.ER PO SCH (08:26)
[2019-10-25] MEDS: CHOLECALCIFEROL 1,000 UNIT TAB PO SCH (08:26)
[2019-10-25] MEDS: CALCIUM CARB-VIT D 500MG-200UN 1 EACH TAB PO SCH (08:27)
--- NOTE | 2019-10-25 11:14 | P.PN ---
Subjective Progress Note Date: 10/24/19 Principal diagnosis: Abdominal wall cellulitis Acute exacerbation CHF Hyponatremia 74-year-old female presenting to the ER with chief complaints of increasing shortness of breath also with increasing abdominal and lower extremity swelling that has been progressively getting worse for the last 2 weeks, patient on admission to the hospital yesterday was afebrile and did have a normal white count chest x-ray was suggestive of congestive heart failure patient has been admitted to the cardiac floor for management of underlying congestive heart failure , this morning the patient was noticed to have lower abdominal wall redness and the patient be complaining of pain and abdominal wall to be more of a dull aching to sharp with intensity 6-7 out of 10 patient currently doesn't have nuchal wound or any drainage has been running a low-grade fever patient has been diagnosed with abdominal wall cellulitis patient was started on Levaquin because of her penicillin ALLERGY Objective - Vital Signs Vital signs: Vital Signs Temp 98.5 F 10/24/19 08:00 Pulse 72 10/24/19 08:00 Resp 20 10/24/19 08:00 BP 134/60 10/24/19 08:00 Pulse Ox 99 10/24/19 08:00 Intake & Output 10/23/19 10/24/19 10/24/19 18:59 06:59 18:59 Intake Total 240 Output Total 950 200 Balance -950 -200 240 Weight 111 kg 112.5 kg Intake: Oral 240 Output: Urine 950 200 Other: # Voids 2 - Labs CBC & Chem 7: 10/25/19 05:39 10/25/19 05:39 Labs: Abnormal Lab Results - Last 24 Hours (Table) 10/23/19 10/23/19 10/23/19 Range/Units 14:38 16:28 20:04 RBC (3.80-5.40) m/uL Hgb (11.4-16.0) gm/dL Hct (34.0-46.0) % MCHC (31.0-37.0) g/dL Plt Count (150-450) k/uL Lymphocytes # (1.0-4.8) k/uL Sodium 127 L (137-145) mmol/L Chloride 89 L (98-107) mmol/L Carbon Dioxide 32 H (22-30) mmol/L Glucose 123 H (74-99) mg/dL POC Glucose (mg/dL) 111 H 152 H (75-99) mg/dL Calcium 8.3 L (8.4-10.2) mg/dL Total Bilirubin 1.7 H (0.2-1.3) mg/dL AST 49 H (14-36) U/L Total Protein 5.3 L (6.3-8.2) g/dL Albumin 3.1 L (3.5-5.0) g/dL 10/24/19 10/24/19 10/24/19 Range/Units 05:21 05:21 06:15 RBC 3.58 L (3.80-5.40) m/uL Hgb 9.0 L D (11.4-16.0) gm/dL Hct 29.2 L (34.0-46.0) % MCHC 30.9 L (31.0-37.0) g/dL Plt Count 107 L (150-450) k/uL Lymphocytes # 0.5 L (1.0-4.8) k/uL Sodium 127 L (137-145) mmol/L Chloride 90 L (98-107) mmol/L Carbon Dioxide 34 H (22-30) mmol/L Glucose 115 H (74-99) mg/dL POC Glucose (mg/dL) 126 H (75-99) mg/dL Calcium 8.0 L (8.4-10.2) mg/dL Total Bilirubin (0.2-1.3) mg/dL AST (14-36) U/L Total Protein (6.3-8.2) g/dL Albumin (3.5-5.0) g/dL Assessment and Plan Assessment: 1. Abdominal wall cellulitis; IDs following IV antibiotics have been readjusted; Levaquin DC'd and patient started on cefazolin 2 g IV every 8 hours; further about a tapering pending culture results 2. Acute exacerbation diastolic CHF; EF of 50-55%; patient remains on Lasix 40 mg IV every 8 hours; Aldactone 25 mg twice a day; monitor strict KIM's, daily weights and continue with fluid restricted diet 3. Hyponatremia; improving slowly 4. Hypertension; coronary 9.375 mg twice a day 5. Diabetes mellitus 6. Hypothyroidism; Synthroid 50 MCG daily 7. COPD/asthma/obstructive sleep apnea; patient intolerant to CPAP; Ventolin inhaler when necessary; Singulair 10 mg daily at bedtime 8. Abdominal liver enzymes; history of fatty liver disease DVT prophylaxis; subcu heparin CODE STATUS; full code
[2019-10-25 12:33] LABS: Glucose,Whole Blood 129 mg/dL (75-99)
--- NOTE | 2019-10-25 15:25 | P.PN ---
Subjective Progress Note Date: 10/25/19 The patient is a 74-year-old female with a history significant for hypertension, diabetes, COPD, former smoker, obstructive sleep apnea, fatty liver disease who presented with complaints of shortness of breath and extremity edema. She was found to have signs of fluid overload on her chest x-ray and has been started on Lasix. She is also being treated for abdominal cellulitis. GENERAL: This is a 74-year-old female in no apparent distress at the time of my examination. HEENT: Head is atraumatic, normocephalic. Pupils are equal, round. Sclerae anicteric. Conjunctivae are clear. Mucous membranes of the mouth are moist. Neck is supple. There is no jugular venous distention. No carotid bruit is heard. LUNGS: Bibasilar fine crackles. No wheezes. No chest wall tenderness is noted on palpation or with deep breathing. HEART: Irregular rate and rhythm. Tachycardic. No murmurs, rubs or gallops. S1 and S2 heard. ABDOMEN: Soft, nontender. Bowel sounds are heard. No organomegaly noted. EXTREMITIES: +2-3 lower extremity edema. no calf tenderness noted. VASCULAR: Radial and dorsalis pedis pulses palpated, no evidence of clubbing. NEUROLOGIC: Patient is awake, alert and oriented x3. VITALS: Blood pressure 109/55, pulse 118, afebrile, SpO2 93% on 2 L nasal cannula TELEMETRY: Atrial fibrillation with heart rates ranging from the low 100s up to 120 bpm LABS: WBC 3.7, hemoglobin 9.0, hematocrit 20.2, platelet 101, sodium 131, BUN 17, creatinine 0.62 IMPRESSION: #1 diastolic heart failure, acute on chronic #2 hypertension #3 diabetes #4 COPD #5. new onset atrial fibrillation #6. Obstructive sleep apnea intolerant to CPAP #7 history of fatty liver disease #8 abnormal liver enzymes #9 pulmonary hypertension #10 abdominal cellulitis #11 anemia #12 hyponatremia PLAN: Discontinue carvedilol after evening dose. We will start atenolol 100 mg tomorrow morning for rate control. Started on Eliquis for anticoagulation due to new onset of atrial fibrillation. Continue diuresis. Recommend pulmonary hygiene and SCDs. Objective - Vital Signs Vital signs: Vital Signs Temp 98.3 F 10/25/19 12:00 Pulse 118 H 10/25/19 12:00 Resp 18 10/25/19 12:00 BP 109/55 10/25/19 12:00 Pulse Ox 93 L 10/25/19 12:00 Intake & Output 10/24/19 10/25/19 10/25/19 18:59 06:59 18:59 Intake Total 476 540 540.216 Output Total 550 Balance 476 -10 540.216 Weight 106.7 kg Intake: Intake, IV Titration 64.216 Amount Heparin Sod,Pork in 0.45% 64.216 NaCl 25,000 unit In 0.45 % NaCl 1 250ml.bag @ 8.85 UNITS/KG/HR 9.956 mls/hr IV .Q24H [facility] Rx#: [id number] Oral 476 540 476 Output: Urine 550 Other: # Voids 3 - Labs CBC & Chem 7: 10/25/19 05:39 10/25/19 05:39 Labs: Abnormal Lab Results - Last 24 Hours (Table) 10/24/19 10/24/19 10/25/19 Range/Units 17:51 20:40 05:39 WBC 3.7 L (3.8-10.6) k/uL RBC 3.41 L (3.80-5.40) m/uL Hgb 9.0 L (11.4-16.0) gm/dL Hct 28.2 L (34.0-46.0) % Plt Count 101 L (150-450) k/uL Lymphocytes # 0.5 L (1.0-4.8) k/uL APTT (22.0-30.0) sec Sodium (137-145) mmol/L Chloride (98-107) mmol/L Carbon Dioxide (22-30) mmol/L Glucose (74-99) mg/dL POC Glucose (mg/dL) 161 H 191 H (75-99) mg/dL Calcium (8.4-10.2) mg/dL 10/25/19 10/25/19 10/25/19 Range/Units 05:39 06:10 10:46 WBC (3.8-10.6) k/uL RBC (3.80-5.40) m/uL Hgb (11.4-16.0) gm/dL Hct (34.0-46.0) % Plt Count (150-450) k/uL Lymphocytes # (1.0-4.8) k/uL APTT 169.2 H* (22.0-30.0) sec Sodium 131 L (137-145) mmol/L Chloride 92 L (98-107) mmol/L Carbon Dioxide 36 H (22-30) mmol/L Glucose 113 H (74-99) mg/dL POC Glucose (mg/dL) 133 H (75-99) mg/dL Calcium 7.9 L (8.4-10.2) mg/dL 10/25/19 Range/Units 12:32 WBC (3.8-10.6) k/uL RBC (3.80-5.40) m/uL Hgb (11.4-16.0) gm/dL Hct (34.0-46.0) % Plt Count (150-450) k/uL Lymphocytes # (1.0-4.8) k/uL APTT (22.0-30.0) sec Sodium (137-145) mmol/L Chloride (98-107) mmol/L Carbon Dioxide (22-30) mmol/L Glucose (74-99) mg/dL POC Glucose (mg/dL) 129 H (75-99) mg/dL Calcium (8.4-10.2) mg/dL Microbiology - Last 24 Hours (Table) 10/23/19 16:04 Blood Culture - Preliminary Blood No Growth after 24 hours
[2019-10-25] MEDS: ALPRAZolam 0.25 MG TAB PO PRN (15:36)
--- NOTE | 2019-10-25 17:28 | P.PN ---
Subjective Progress Note Date: 10/25/19 Principal diagnosis: Abdominal wall cellulitis Acute exacerbation CHF Hyponatremia 74-year-old female presenting to the ER with chief complaints of increasing shortness of breath also with increasing abdominal and lower extremity swelling that has been progressively getting worse for the last 2 weeks, patient on admission to the hospital yesterday was afebrile and did have a normal white count chest x-ray was suggestive of congestive heart failure patient has been admitted to the cardiac floor for management of underlying congestive heart failure , this morning the patient was noticed to have lower abdominal wall redness and the patient be complaining of pain and abdominal wall to be more of a dull aching to sharp with intensity 6-7 out of 10 patient currently doesn't have nuchal wound or any drainage has been running a low-grade fever patient has been diagnosed with abdominal wall cellulitis patient was started on Levaquin because of her penicillin ALLERGY 10/25/2019 Patient is seen and evaluated with family at bedside; nursing staff reporting uncontrolled pain; this was discussed with patient and she reports feeling stable at this time Patient remains on IV diuretics for acute on chronic diastolic CHF; cardiology is following and recommending to discontinue Coreg and start patient on atenolol 100 mg daily for improved rate control for new onset atrial fibrillation; patient is also started on anticoagulation with Eliquis; heparin has been discontinued; lab review shows improving hyponatremia with a sodium level impro ving from 128 up to 131 this morning Objective - Vital Signs Vital signs: Vital Signs Temp 98.3 F 10/25/19 08:00 Pulse 109 H 10/25/19 08:00 Resp 20 10/25/19 08:00 BP 95/53 10/25/19 08:00 Pulse Ox 94 L 10/25/19 08:00 Intake & Output 10/24/19 10/25/19 10/25/19 18:59 06:59 18:59 Intake Total 476 540 Output Total 550 Balance 476 -10 Weight 106.7 kg Intake: Oral 476 540 Output: Urine 550 Other: # Voids 3 - Exam PHYSICAL EXAMINATION: GENERAL: The patient is alert and oriented x3, not in any acute distress. Well developed, well nourished. HEENT: Pupils are round and equally reacting to light. EOMI. No scleral icterus. No conjunctival pallor. Normocephalic, atraumatic. No pharyngeal erythema. No th yromegaly. CARDIOVASCULAR: S1 and S2 present. No murmurs, rubs, or gallops. PULMONARY: Chest is clear to auscultation, no wheezing or crackles. ABDOMEN: Soft, nontender, nondistended, normoactive bowel sounds. No palpable organomegaly. MUSCULOSKELETAL: No joint swelling or deformity. EXTREMITIES: No cyanosis, clubbing, or pedal edema. NEUROLOGICAL: Gross neurological examination did not reveal any focal deficits. SKIN: No rashes. - Labs CBC & Chem 7: 10/25/19 05:39 10/25/19 05:39 Labs: Abnormal Lab Results - Last 24 Hours (Table) 10/24/19 10/24/19 10/24/19 Range/Units 12:51 17:51 20:40 WBC (3.8-10.6) k/uL RBC (3.80-5.40) m/uL Hgb (11.4-16.0) gm/dL Hct (34.0-46.0) % Plt Count (150-450) k/uL Lymphocytes # (1.0-4.8) k/uL Sodium (137-145) mmol/L Chloride (98-107) mmol/L Carbon Dioxide (22-30) mmol/L Glucose (74-99) mg/dL POC Glucose (mg/dL) 115 H 161 H 191 H (75-99) mg/dL Calcium (8.4-10.2) mg/dL 10/25/19 10/25/19 10/25/19 Range/Units 05:39 05:39 06:10 WBC 3.7 L (3.8-10.6) k/uL RBC 3.41 L (3.80-5.40) m/uL Hgb 9.0 L (11.4-16.0) gm/dL Hct 28.2 L (34.0-46.0) % Plt Count 101 L (150-450) k/uL Lymphocytes # 0.5 L (1.0-4.8) k/uL Sodium 131 L (137-145) mmol/L Chloride 92 L (98-107) mmol/L Carbon Dioxide 36 H (22-30) mmol/L Glucose 113 H (74-99) mg/dL POC Glucose (mg/dL) 133 H (75-99) mg/dL Calcium 7.9 L (8.4-10.2) mg/dL Microbiology - Last 24 Hours (Table) 10/23/19 16:04 Blood Culture - Preliminary Blood No Growth after 24 hours Assessment and Plan Assessment: 1. Abdominal wall cellulitis; IDs following IV antibiotics have been readjusted; Levaquin DC'd and patient started on cefazolin 2 g IV every 8 hours; further about a tapering pending culture results 2. Acute exacerbation diastolic CHF; EF of 50-55%; patient remains on Lasix 40 mg IV every 8 hours; Aldactone 25 mg twice a day; monitor strict KIM's, daily weights and continue with fluid restricted diet 3. Hyponatremia; improving slowly 4. Hypertension; coronary 9.375 mg twice a day 5. Diabetes mellitus 6. Hypothyroidism; Synthroid 50 MCG daily 7. COPD/asthma/obstructive sleep apnea; patient intolerant to CPAP; Ventolin inhaler when necessary; Singulair 10 mg daily at bedtime 8. Abdominal liver enzymes; history of fatty liver disease DVT prophylaxis; subcu heparin CODE STATUS; full code
[2019-10-25 17:48] LABS: Glucose,Whole Blood 135 mg/dL (75-99)
[2019-10-25] MEDS: APIXABAN 5 MG TAB PO SCH (19:59)
[2019-10-25] MEDS: PRAMIPEXOLE 0.125 MG TAB PO SCH (19:59)
[2019-10-25] MEDS: ALPRAZolam 0.5 MG TAB PO SCH (20:00)
[2019-10-25] MEDS: MONTELUKAST 10 MG TAB PO SCH (20:00)
[2019-10-25 20:04] LABS: Glucose,Whole Blood 176 mg/dL (75-99)
--- NOTE | 2019-10-25 22:18 | PN ---
PROGRESS NOTE DATE OF SERVICE: 10/25/2019 REASON FOR FOLLOWUP: Abdominal wall cellulitis. INTERVAL HISTORY: The patient is currently afebrile. The patient is breathing comfortably. She is still complaining of abdominal distention and pain and discomfort associated with but no worsening. No chest pain, shortness of breath or cough. No diarrhea. PHYSICAL EXAMINATION: Blood pressure 122/59 with a pulse of 108. Temperature 98.1. She is 99% on 2 L nasal cannula. General description is an elderly female up in the bed in no distress. Respiratory system: Unlabored breathing. Clear to auscultation anteriorly. Heart S1, S2. Regular rate and rhythm. ABDOMEN: Soft, mildly distended and tender to touch. Extremities: 2+ edema of feet. LABS: Hemoglobin 9.4, white count 3.7, BUN of 17, creatinine 0.62. Blood culture has been negative. DIAGNOSTIC IMPRESSION AND PLAN: Patient with abdominal wall cellulitis in this patient who did have significant swelling likely from fluid overload and possible streptococcal cellulitis responding to cefazolin to continue and we will monitor clinical course closely. MMODL / IJN: [id number] /
[2019-10-26] MEDS: PANTOPRAZOLE 40 MG TABLET PO SCH (06:16)
[2019-10-26] MEDS: LEVOTHYROXINE 50 MCG TAB PO SCH (06:16)
[2019-10-26 06:21] LABS: Glucose,Whole Blood 122 mg/dL (75-99)
[2019-10-26 07:33] LABS: Basophils % (A) 1 %; Eosinophils # (A) 0.2 k/uL (0-0.7); Eosinophils % (A) 4 %; HGB 9.1 gm/dL (11.4-16.0); Hypochromasia Marked; Lymphocytes # (A) 0.5 k/uL (1.0-4.8); Lymphocytes % (A) 14 %; MCHC 30.5 g/dL (31.0-37.0); MCV 81.9 fL (80.0-100.0); Mean Platelet Volume 7.2; Monocytes # (A) 0.2 k/uL (0-1.0); Monocytes % (A) 6 %; Neutrophils # (A) 2.6 k/uL (1.3-7.7); Neutrophils % (A) 72 %; Platelet Count 106 k/uL (150-450); RBC 3.66 m/uL (3.80-5.40); RDW 15.2 % (11.5-15.5); WBC 3.6 k/uL (3.8-10.6)
[2019-10-26 07:42] LABS: African American GFR (CKD) >90 (>60 ml/min/1.73 sqM); Anion Gap 4 mmol/L; Blood Urea Nitrogen 17 mg/dL (7-17); Calcium 7.9 mg/dL (8.4-10.2); Carbon Dioxide 37 mmol/L (22-30); Chloride 90 mmol/L (98-107); Glucose 103 mg/dL (74-99); Non-African American GFR(CKD) 88 (>60 ml/min/1.73 sqM); Potassium 3.8 mmol/L (3.5-5.1); Sodium 131 mmol/L (137-145)
[2019-10-26] MEDS: CALCIUM CARB-VIT D 500MG-200UN 1 EACH TAB PO SCH (08:57)
[2019-10-26] MEDS: ASCORBIC ACID 500 MG TAB PO SCH (08:57)
[2019-10-26] MEDS: VITAMIN E (DL,TOCOPHERYL ACET) 400 UNIT CAP PO SCH (08:57)
[2019-10-26] MEDS: APIXABAN 5 MG TAB PO SCH ×2 (08:58→20:32)
[2019-10-26] MEDS: ASPIRIN 81 MG PO SCH (08:58)
[2019-10-26] MEDS: CITALOPRAM HYDROBROMIDE 20 MG TAB PO SCH (08:58)
[2019-10-26] MEDS: atenoloL 50 MG TAB PO SCH (08:58)
[2019-10-26] MEDS: POTASSIUM CHLORIDE ER 20 MEQ TAB.ER PO SCH (08:58)
[2019-10-26] MEDS: SPIRONOLACTONE 25 MG TAB PO SCH ×2 (08:58→20:32)
[2019-10-26] MEDS: CHOLECALCIFEROL 1,000 UNIT TAB PO SCH (08:58)
[2019-10-26] MEDS: FUROSEMIDE 10 MG/ML 4 ML VIAL IV SCH ×3 (08:58→23:13)
[2019-10-26 11:55] LABS: Glucose,Whole Blood 137 mg/dL (75-99)
--- NOTE | 2019-10-26 15:54 | CONS ---
RUTHIE Plascencia is a 74-year-old lady that is admitted to hospital with acute exacerbation of chronic diastolic heart failure. She has history of hypertension, diabetes, COPD, and obstructive sleep apnea. On exam today, patient is sleepy. Heart rate is 75 beats per minute. Blood pressure is 126/59, respiratory rate is 20, O2 saturation is 99% on 3 L. Chest exam reveals diminished air entry at the bases, heart exam reveals first and second heart sounds. No gallop. Exam of extremities revealed bilateral pitting edema. An echocardiogram shows an ejection fraction of 55%. LABS: Show a hemoglobin of 9.1, potassium is 3.8 creatinine is 0.6. The patient is currently on Eliquis, aspirin, Tenormin, Lasix, Singulair, Protonix, K- Dur, and Aldactone. ASSESSMENT: 1. Acute exacerbation of chronic diastolic heart failure. 2. Paroxysmal atrial fibrillation. PLAN: Patient will continue with the IV Lasix. MMSPIKEL / IJN: [id number] /
--- NOTE | 2019-10-26 16:44 | P.PN ---
Subjective Progress Note Date: 10/26/19 Principal diagnosis: Abdominal wall cellulitis Acute exacerbation diastolic CHF Hyponatremia 74-year-old female presenting to the ER with chief complaints of increasing shortness of breath also with increasing abdominal and lower extremity swelling that has been progressively getting worse for the last 2 weeks, patient on admission to the hospital yesterday was afebrile and did have a normal white count chest x-ray was suggestive of congestive heart failure patient has been admitted to the cardiac floor for management of underlying congestive heart failure , this morning the patient was noticed to have lower abdominal wall redness and the patient be complaining of pain and abdominal wall to be more of a dull aching to sharp with intensity 6-7 out of 10 patient currently doesn't have nuchal wound or any drainage has been running a low-grade fever patient has been diagnosed with abdominal wall cellulitis patient was started on Levaquin because of her penicillin ALLERGY 10/25/2019 Patient is seen and evaluated with family at bedside; nursing staff reporting uncontrolled pain; this was discussed with patient and she reports feeling stable at this time Patient remains on IV diuretics for acute on chronic diastolic CHF; cardiology is following and recommending to discontinue Coreg and start patient on atenolol 100 mg daily for improved rate control for new onset atrial fibrillation; patient is also started on anticoagulation with Eliquis; heparin has been discontinued; lab review shows improving hyponatremia with a sodium level improving from 128 up to 131 this morning 10/26/2019 Patient is seen in room with RN at bedside; denies any specific complaints; vital signs are stable with a temperature of 98.1, respiration 18 blood pressure of 122/59 Lab review shows a white blood count of 3.7 with hemoglobin of 9.4; B UN/creatinine are stable at 17/0.6; cultures have been negative so far Patient remains on IV antibiotics in form of cefazolin with ID recommending to continue with current management due to patient showing significant swelling of the abdominal wall from fluid overload and possible streptococcal cellulitis requiring continued IV antibiotic support; cardiology is following for acute exacerbation of chronic diastolic CHF and recommending to continue with IV Lasix at this time Objective - Vital Signs Vital signs: Vital Signs Temp 98.1 F 10/26/19 08:00 Pulse 78 10/26/19 08:00 Resp 16 10/26/19 08:00 BP 136/64 10/26/19 08:00 Pulse Ox 98 10/26/19 08:00 Intake & Output 10/25/19 10/26/19 10/26/19 18:59 06:59 18:59 Intake Total 540.216 236 240 Output Total 1450 500 Balance -909.784 -264 240 Weight 106.3 kg Intake: Intake, IV Titration 64.216 Amount Heparin Sod,Pork in 0.45% 64.216 NaCl 25,000 unit In 0.45 % NaCl 1 250ml.bag @ 8.85 UNITS/KG/HR 9.956 mls/hr IV .Q24H [facility] Rx#: [id number] Oral 476 236 240 Output: Urine 1450 500 Other: # Voids 2 1 # Bowel Movements 1 - Exam PHYSICAL EXAMINATION: GENERAL: The patient is alert and oriented x3, not in any acute distress. Well developed, well nourished. HEENT: Pupils are round and equally reacting to light. EOMI. No scleral icterus. No conjunctival pallor. Normocephalic, atraumatic. No pharyngeal erythema. No thyromegaly. CARDIOVASCULAR: S1 and S2 present. No murmurs, rubs, or gallops. PULMONARY: Chest is clear to auscultation, no wheezing or crackles. ABDOMEN: Soft, nontender, nondistended, normoactive bowel sounds. No palpable organomegaly. MUSCULOSKELETAL: No joint swelling or deformity. EXTREMITIES: No cyanosis, clubbing, or pedal edema. NEUROLOGICAL: Gross neurological examination did not reveal any focal deficits. SKIN: No rashes. - Labs CBC & Chem 7: 10/26/19 06:35 10/26/19 06:35 Labs: Abnormal Lab Results - Last 24 Hours (Table) 10/25/19 10/25/19 10/25/19 Range/Units 12:32 17:46 20:02 WBC (3.8-10.6) k/uL RBC (3.80-5.40) m/uL Hgb (11.4-16.0) gm/dL Hct (34.0-46.0) % MCHC (31.0-37.0) g/dL Plt Count (150-450) k/uL Lymphocytes # (1.0-4.8) k/uL Sodium (137-145) mmol/L Chloride (98-107) mmol/L Carbon Dioxide (22-30) mmol/L Glucose (74-99) mg/dL POC Glucose (mg/dL) 129 H 135 H 176 H (75-99) mg/dL Calcium (8.4-10.2) mg/dL 10/26/19 10/26/19 10/26/19 Range/Units 06:20 06:35 06:35 WBC 3.6 L (3.8-10.6) k/uL RBC 3.66 L (3.80-5.40) m/uL Hgb 9.1 L (11.4-16.0) gm/dL Hct 30.0 L (34.0-46.0) % MCHC 30.5 L (31.0-37.0) g/dL Plt Count 106 L (150-450) k/uL Lymphocytes # 0.5 L (1.0-4.8) k/uL Sodium 131 L (137-145) mmol/L Chloride 90 L (98-107) mmol/L Carbon Dioxide 37 H (22-30) mmol/L Glucose 103 H (74-99) mg/dL POC Glucose (mg/dL) 122 H (75-99) mg/dL Calcium 7.9 L (8.4-10.2) mg/dL 10/26/19 Range/Units 11:53 WBC (3.8-10.6) k/uL RBC (3.80-5.40) m/uL Hgb (11.4-16.0) gm/dL Hct (34.0-46.0) % MCHC (31.0-37.0) g/dL Plt Count (150-450) k/uL Lymphocytes # (1.0-4.8) k/uL Sodium (137-145) mmol/L Chloride (98-107) mmol/L Carbon Dioxide (22-30) mmol/L Glucose (74-99) mg/dL POC Glucose (mg/dL) 137 H (75-99) mg/dL Calcium (8.4-10.2) mg/dL Microbiology - Last 24 Hours (Table) 10/23/19 16:04 Blood Culture - Preliminary Blood No Growth after 48 hours Assessment and Plan Assessment: 1. Abdominal wall cellulitis; IDs following IV antibiotics have been readjusted; Levaquin DC'd and patient started on cefazolin 2 g IV every 8 hours; further about a tapering pending culture results 2. Acute exacerbation diastolic CHF; EF of 50-55%; patient remains on Lasix 40 mg IV every 8 hours; Aldactone 25 mg twice a day; monitor strict KIM's, daily weights and continue with fluid restricted diet 3. Hyponatremia; improving slowly 4. Hypertension; coronary 9.375 mg twice a day 5. Diabetes mellitus 6. Hypothyroidism; Synthroid 50 MCG daily 7. COPD/asthma/obstructive sleep apnea; patient intolerant to CPAP; Ventolin inhaler when necessary; Singulair 10 mg daily at bedtime 8. Abdominal liver enzymes; history of fatty liver disease DVT prophylaxis; subcu heparin CODE STATUS; full code
[2019-10-26 17:14] LABS: Glucose,Whole Blood 131 mg/dL (75-99)
--- NOTE | 2019-10-26 19:58 | PN ---
PROGRESS NOTE DATE OF SERVICE: 10/26/2019 REASON FOR FOLLOWUP: Abdominal wound cellulitis. INTERVAL HISTORY: The patient is currently afebrile. The patient is breathing comfortably. The patient denies having any chest pain. She still complains of shortness of breath and abdominal discomfort. No diarrhea. PHYSICAL EXAMINATION: Blood pressure is 130/58 with a pulse of 76, temperature 98.1. She is 98% on 3 L nasal cannula. General description is an elderly female up in the bed in no distress. RESPIRATORY SYSTEM: Unlabored breathing. Clear to auscultation anteriorly. HEART: S1, S2. Regular rate and rhythm. ABDOMEN: Soft. Mildly distended. However, the redness has improved. LABS: Hemoglobin is 9.9, white count 3.6, creatinine 0.61. DIAGNOSTIC IMPRESSION AND PLAN: Patient with abdominal wall cellulitis in this patient who did have evidence of fluid overload. The patient is currently covered with cefazolin 2 grams q.8 hours; to continue and finish therapy with oral Keflex and will monitor clinical course closely. MMSPIKEL / RONNIEN: [id number] /
[2019-10-26] MEDS: ALPRAZolam 0.5 MG TAB PO SCH (20:32)
[2019-10-26] MEDS: PRAMIPEXOLE 0.125 MG TAB PO SCH (20:33)
[2019-10-26] MEDS: MONTELUKAST 10 MG TAB PO SCH (20:33)
[2019-10-26 21:14] LABS: Glucose,Whole Blood 125 mg/dL (75-99)
[2019-10-27] MEDS: LEVOTHYROXINE 50 MCG TAB PO SCH (06:24)
[2019-10-27] MEDS: PANTOPRAZOLE 40 MG TABLET PO SCH (06:24)
[2019-10-27 06:58] LABS: Glucose,Whole Blood 120 mg/dL (75-99)
[2019-10-27] MEDS: CHOLECALCIFEROL 1,000 UNIT TAB PO SCH (09:09)
[2019-10-27] MEDS: APIXABAN 5 MG TAB PO SCH ×2 (09:09→21:14)
[2019-10-27] MEDS: ASPIRIN 81 MG PO SCH (09:10)
[2019-10-27] MEDS: atenoloL 50 MG TAB PO SCH (09:10)
[2019-10-27] MEDS: ASCORBIC ACID 500 MG TAB PO SCH (09:10)
[2019-10-27] MEDS: FUROSEMIDE 10 MG/ML 4 ML VIAL IV SCH (09:10)
[2019-10-27] MEDS: CITALOPRAM HYDROBROMIDE 20 MG TAB PO SCH (09:10)
[2019-10-27] MEDS: SPIRONOLACTONE 25 MG TAB PO SCH ×2 (09:10→21:14)
[2019-10-27] MEDS: CALCIUM CARB-VIT D 500MG-200UN 1 EACH TAB PO SCH (09:10)
[2019-10-27] MEDS: POTASSIUM CHLORIDE ER 20 MEQ TAB.ER PO SCH (09:10)
[2019-10-27] MEDS: VITAMIN E (DL,TOCOPHERYL ACET) 400 UNIT CAP PO SCH (09:10)
[2019-10-27 12:09] LABS: Glucose,Whole Blood 119 mg/dL (75-99)
[2019-10-27] MEDS: PRAMIPEXOLE 0.125 MG TAB PO SCH ×2 (14:29→21:33)
--- NOTE | 2019-10-27 15:31 | PN ---
PROGRESS NOTE DATE OF SERVICE: 10/27/2019 REASON FOR FOLLOWUP: Abdominal wall cellulitis. INTERVAL HISTORY: The patient is currently afebrile. The patient is breathing comfortably. The patient's abdominal distention and the pain have improved. No nausea. No vomiting or diarrhea. PHYSICAL EXAMINATION: Blood pressure 128/58 with a pulse of 73, temperature 98.6. She is 97% on 3 L nasal cannula. General description is an elderly female up in the chair in no distress. RESPIRATORY SYSTEM: Unlabored breathing. Clear to auscultation anteriorly. HEART: S1, S2. Regular rate and rhythm. ABDOMEN: Soft. Distended. LABS: No new labs have been obtained today. DIAGNOSTIC IMPRESSION AND PLAN: Patient with abdominal wall cellulitis in this patient who did have evidence of fluid overload and cellulitis. The patient is covered with cefazolin; to continue. Finish therapy with oral Keflex. Continue supportive care. MMODL / IJN: [id number] /
--- NOTE | 2019-10-27 15:46 | PN ---
PROGRESS NOTE Thais is a 74-year-old lady who was admitted to hospital with acute exacerbation of chronic congestive heart failure which is diastolic and has paroxysmal atrial fibrillation. She had been on IV Lasix and has lost quite a bit of weight, feeling much better. Not short of breath, leg edema has improved. PHYSICAL EXAM: Patient is afebrile, heart rate is 70 beats per minute, blood pressure is 150/70, respiratory rate is 18. There is no jugular venous distention. Chest exam reveals good air entry bilaterally. I do not hear any crackles or rhonchi. Heart exam reveals first and second heart sounds. No gallop. Abdomen is soft. Exam of extremities reveals 1+ pitting edema bilaterally. The patient is currently on Eliquis, aspirin, Tenormin, Lasix 40 IV q.8, K-Dur daily, Mirapex and Aldactone. We do not have any labs from today. ASSESSMENT: 1. Acute exacerbation of chronic diastolic heart failure. 2. Paroxysmal atrial fibrillation. PLAN: I am going to switch the patient's Lasix to p.o. hopefully home either today or tomorrow. MMODL / IJN: [id number] /
[2019-10-27] MEDS: FUROSEMIDE 40 MG TAB PO SCH (16:21)
[2019-10-27 17:05] LABS: Glucose,Whole Blood 143 mg/dL (75-99)
[2019-10-27 20:26] LABS: Glucose,Whole Blood 164 mg/dL (75-99)
[2019-10-27] MEDS: ALPRAZolam 0.5 MG TAB PO SCH (21:14)
[2019-10-27] MEDS: MONTELUKAST 10 MG TAB PO SCH (21:14)
--- NOTE | 2019-10-27 23:59 | P.PN ---
Subjective Progress Note Date: 10/27/19 Principal diagnosis: Abdominal wall cellulitis Acute exacerbation diastolic CHF Hyponatremia 74-year-old female presenting to the ER with chief complaints of increasing shortness of breath also with increasing abdominal and lower extremity swelling that has been progressively getting worse for the last 2 weeks, patient on admission to the hospital yesterday was afebrile and did have a normal white count chest x-ray was suggestive of congestive heart failure patient has been admitted to the cardiac floor for management of underlying congestive heart failure , this morning the patient was noticed to have lower abdominal wall redness and the patient be complaining of pain and abdominal wall to be more of a dull aching to sharp with intensity 6-7 out of 10 patient currently doesn't have nuchal wound or any drainage has been running a low-grade fever patient has been diagnosed with abdominal wall cellulitis patient was started on Levaquin because of her penicillin ALLERGY 10/25/2019 Patient is seen and evaluated with family at bedside; nursing staff reporting uncontrolled pain; this was discussed with patient and she reports feeling stable at this time Patient remains on IV diuretics for acute on chronic diastolic CHF; cardiology is following and recommending to discontinue Coreg and start patient on atenolol 100 mg daily for improved rate control for new onset atrial fibrillation; patient is also started on anticoagulation with Eliquis; heparin has been discontinued; lab review shows improving hyponatremia with a sodium level improving from 128 up to 131 this morning 10/26/2019 Patient is seen in room with RN at bedside; denies any specific complaints; vital signs are stable with a temperature of 98.1, respiration 18 blood pressure of 122/59 Lab review shows a white blood count of 3.7 with hemoglobin of 9.4; B UN/creatinine are stable at 17/0.6; cultures have been negative so far Patient remains on IV antibiotics in form of cefazolin with ID recommending to continue with current management due to patient showing significant swelling of the abdominal wall from fluid overload and possible streptococcal cellulitis requiring continued IV antibiotic support; cardiology is following for acute exacerbation of chronic diastolic CHF and recommending to continue with IV Lasix at this time. 10/27/2019 Patient is seen and evaluated in follow up and is being closely monitored. Cardiology and infectious disease following closely. Patient remains on IV antibiotics in the form of cefazolin and will continue at this time. Patient has been transitioned to oral lasix and is being closely monitored. Patient currently remains on 02 via nasal cannula at 3 liters. Will discuss with nursing staff about weaning 02 and assess for possible need for home 02. Will repeat am labs. Currently no reports of chest pain, worsening shortness of breath, or palpitations. Patient is afebrile. No reports of nausea or vomiting and patient is tolerating diet. Objective - Vital Signs Vital signs: Vital Signs Temp 98.6 F 10/27/19 08:30 Pulse 73 10/27/19 12:35 Resp 20 10/27/19 12:35 BP 128/58 10/27/19 12:35 Pulse Ox 97 10/27/19 12:35 Intake & Output 10/26/19 10/27/19 10/27/19 18:59 06:59 18:59 Intake Total 880 Output Total 201 Balance 880 -201 Weight 99.8 kg Intake: Oral 880 Output: Urine 200 Urine/Stool Mix 1 Other: # Voids 5 1 # Bowel Movements 1 - Exam GENERAL: The patient is alert and oriented x3, not in any acute distress. Well developed, well nourished. HEENT: Pupils are round and equally reacting to light. EOMI. No scleral icterus. No conjunctival pallor. Normocephalic, atraumatic. No pharyngeal erythema. No thyromegaly. CARDIOVASCULAR: S1 and S2 present. No murmurs, rubs, or gallops. PULMONARY: Chest is clear to auscultation, no wheezing or crackles. ABDOMEN: Soft, nontender, nondistended, normoactive bowel sounds. No palpable organomegaly. MUSCULOSKELETAL: No joint swelling or deformity. EXTREMITIES: No cyanosis, clubbing, or pedal edema. NEUROLOGICAL: Gross neurological examination did not reveal any focal deficits. SKIN: No rashes. - Labs CBC & Chem 7: 10/26/19 06:35 10/26/19 06:35 Labs: Abnormal Lab Results - Last 24 Hours (Table) 10/26/19 10/26/19 10/27/19 Range/Units 17:13 21:13 06:15 POC Glucose (mg/dL) 131 H 125 H 120 H (75-99) mg/dL 10/27/19 Range/Units 12:07 POC Glucose (mg/dL) 119 H (75-99) mg/dL Microbiology - Last 24 Hours (Table) 10/23/19 16:04 Blood Culture - Preliminary Blood No Growth after 72 hours Assessment and Plan Assessment: -Abdominal wall cellulitis; IDs following IV antibiotics on cefazolin 2 g IV every 8 hours -Acute exacerbation diastolic CHF; EF of 50-55%; patient remains on Lasix 40 mg oral BID; Aldactone 25 mg twice a day; monitor strict KIM's, daily weights and continue with fluid restricted diet -Hyponatremia; improving slowly -Hypertension; coronary 9.375 mg twice a day -Diabetes mellitus -Hypothyroidism; Synthroid 50 MCG daily -COPD/asthma/obstructive sleep apnea; patient intolerant to CPAP; Ventolin inhaler when necessary; Singulair 10 mg daily at bedtime -Abdominal liver enzymes; history of fatty liver disease -DVT prophylaxis; subcu heparin -CODE STATUS; full code Plan: Continue current medications, management, and symptomatic treatment. Will repeat am labs. Patient is continued on IV cefazolin and will likely transition to oral keflex upon discharge. Patient has been transitioned to oral lasix 40mg BID and will continue. temporary staff accountant to attempt to wean FI02 and possibly assess for home 02 as patient is still currently on 3 Liters of oxygen via NC. Further recommendations to follow. Possible discharge in 24-48 hours.
[2019-10-28 06:16] LABS: Glucose,Whole Blood 123 mg/dL (75-99)
[2019-10-28 06:16] LABS: Basophils % (A) 1 %; Eosinophils # (A) 0.2 k/uL (0-0.7); Eosinophils % (A) 4 %; HGB 9.5 gm/dL (11.4-16.0); Hypochromasia Marked; Lymphocytes # (A) 0.8 k/uL (1.0-4.8); Lymphocytes % (A) 18 %; MCH 25.2 pg (25.0-35.0); MCHC 30.8 g/dL (31.0-37.0); MCV 81.9 fL (80.0-100.0); Mean Platelet Volume 7.1; Monocytes # (A) 0.3 k/uL (0-1.0); Monocytes % (A) 7 %; Neutrophils # (A) 2.8 k/uL (1.3-7.7); Neutrophils % (A) 67 %; Platelet Count 104 k/uL (150-450); RBC 3.78 m/uL (3.80-5.40); RDW 15.1 % (11.5-15.5); WBC 4.2 k/uL (3.8-10.6)
[2019-10-28 06:26] LABS: African American GFR (CKD) >90 (>60 ml/min/1.73 sqM); Anion Gap 2 mmol/L; Blood Urea Nitrogen 22 mg/dL (7-17); Calcium 8.2 mg/dL (8.4-10.2); Carbon Dioxide 38 mmol/L (22-30); Chloride 91 mmol/L (98-107); Glucose 102 mg/dL (74-99); Non-African American GFR(CKD) 85 (>60 ml/min/1.73 sqM); Potassium 4.2 mmol/L (3.5-5.1); Sodium 131 mmol/L (137-145)
[2019-10-28] MEDS: PANTOPRAZOLE 40 MG TABLET PO SCH (06:46)
[2019-10-28] MEDS: LEVOTHYROXINE 50 MCG TAB PO SCH (06:46)
[2019-10-28 07:48] VITALS: TEMP 98
[2019-10-28] MEDS: atenoloL 50 MG TAB PO SCH (08:28)
[2019-10-28] MEDS: VITAMIN E (DL,TOCOPHERYL ACET) 400 UNIT CAP PO SCH (08:28)
[2019-10-28] MEDS: CHOLECALCIFEROL 1,000 UNIT TAB PO SCH (08:28)
[2019-10-28] MEDS: ASCORBIC ACID 500 MG TAB PO SCH (08:28)
[2019-10-28] MEDS: POTASSIUM CHLORIDE ER 20 MEQ TAB.ER PO SCH (08:28)
[2019-10-28] MEDS: FUROSEMIDE 40 MG TAB PO SCH ×2 (08:28→15:29)
[2019-10-28] MEDS: CITALOPRAM HYDROBROMIDE 20 MG TAB PO SCH (08:28)
[2019-10-28] MEDS: SPIRONOLACTONE 25 MG TAB PO SCH (08:28)
[2019-10-28] MEDS: CALCIUM CARB-VIT D 500MG-200UN 1 EACH TAB PO SCH (08:28)
[2019-10-28] MEDS: ASPIRIN 81 MG PO SCH (08:28)
[2019-10-28] MEDS: APIXABAN 5 MG TAB PO SCH (08:28)
[2019-10-28] MEDS: ALPRAZolam 0.25 MG TAB PO PRN (10:47)
[2019-10-28 11:13] VITALS: BP 147/72; PULSE 98; RESP 22
[2019-10-28 12:04] LABS: Glucose,Whole Blood 137 mg/dL (75-99)
--- NOTE | 2019-10-28 15:40 | PN ---
PROGRESS NOTE Thais is a 74-year-old lady that is admitted to hospital with congestive heart failure. She is feeling better, ambulating with help, shortness of breath has improved as did the leg edema. Patient is currently on Eliquis, aspirin, Tenormin, Lasix, Protonix, Aldactone. PHYSICAL EXAM: Afebrile, heart rate is 96 beats per minute. Blood pressure is 140/70, respiratory rate is 18. Chest exam reveals good air entry bilaterally. Heart exam reveals first and second heart sounds. No gallop. No murmur. Exam of extremities reveals bilateral 1+ pitting edema. LABS: Show a potassium of 4.2, creatinine of 0.6. ASSESSMENT: 1. Acute exacerbation of chronic diastolic heart failure. 2. Paroxysmal atrial fibrillation. 3. Abdominal wall cellulitis. PLAN: I will continue the patient on aspirin, Tenomrin, Lasix p.o., Aldactone that she is on. MMODL / IJN: [id number] /
--- NOTE | 2019-10-28 16:18 | P.PN ---
Progress Note - Text Progress Note Date: 10/28/19 REASON FOR FOLLOWUP: Abdominal wall cellulitis. INTERVAL HISTORY: The patient remains to be afebrile. The patient is breathing comfortably. The patient's abdominal distention and the pain have improved. The patient denies having any nausea vomiting and no diarrhea PHYSICAL EXAMINATION: Blood pressure 120/50 with a pulse of 70, temperature 98.6. She is 97% on 3 L nasal cannula. General description is an elderly female up in the chair in no distress. RESPIRATORY SYSTEM: Unlabored breathing. Clear to auscultation anteriorly. HEART: S1, S2. Regular rate and rhythm. ABDOMEN: Soft. Distended. Nontender to touch LABS: Reviewed. DIAGNOSTIC IMPRESSION AND PLAN: Patient with abdominal wall cellulitis in this patient who did have evidence of fluid overload likely streptococcal cellulitis. The patient clinically improved with cefazolin; to finish therapy with oral Keflex 500 mg 3 times a day for 7 days, Continue supportive care
--- NOTE | 2019-10-29 08:48 | P.DS ---
Providers Date of admission: 10/22/19 20:35 Expected date of discharge: 10/28/19 Attending physician: Salinas Prince Consults: 10/22/19 20:33 Consult Physician Routine Consulting Provider: [facility] Consult Reason/Comments: Acute pulmonary edema Do you want consulting provider notified?: Yes 10/23/19 15:50 Consult Physician Routine Consulting Provider: Vinod Boone Consult Reason/Comments: abdominal cellulitis, low grade fever Do you want consulting provider notified?: Yes Primary care physician: Nan Bro Hospital Course: Final diagnosis -Abdominal wall cellulitis -Acute exacerbation diastolic CHF; EF of 50-55% -Hyponatremia -Hypertension -Diabetes mellitus -Hypothyroidism -COPD/asthma/obstructive sleep apnea; patient intolerant to CPAP -Abdominal liver enzymes -DVT prophylaxis -CODE STATUS; full code Discharge disposition Patient is being discharged in a stable condition with guarded prognosis to home. Patient will follow-up with Dr. Nan bro upon discharge. Patient also instructed to follow-up with cardiology Dr. Bassett within the next week. Patient will continue on a short course of oral antibiotics in the form of Keflex 3 times daily for the next 10 days. Total time taken is 35 minutes. History of present illness This is an 74-year-old female who was recently admitted with increasing shortness of breath and increasing abdominal and lower extremity swelling that has been worsening over the last 2 weeks and was being closely monitored. Patient was seen and evaluated by cardiology along with infectious disease she was found to have some right-sided abdominal wall tenderness, erythema, and possibility of cellulitis. Patient was initiated on IV cefazolin and will transition to oral Keflex 500 mg 3 times daily for the next 10 days. Patient was also maintained on IV Lasix for diuresis for lower extremity edema along with abdominal wall swelling. Patient does have a history of congestive heart failure and normally takes Lasix and will continue with Lasix 40 mg twice daily in the outpatient setting. Patient continued to require oxygen during hospitalization and was evaluated for home O2 assessment and qualified she was less than 88% on room air with minimal exertion. Patient was seen and evaluated by physical therapy recommending subacute rehab although patient and family would like her to return home and she is also refusing Homecare at this time. Discussed with the patient at length about gait dysfunction and weakness although patient continues to want to go home. She states she has family there that will help her. Patient instructed to follow-up with her primary care provider along with cardiology Dr. Bassett in the outpatient setting. Patient will go home with oxygen and will continue on her Lasix. Patient's right side abdominal wall continues to be slightly edematous although redness has improved. Currently no reports of chest pain, shortness of breath, or palpitations. Patient is afebrile. No reports of nausea or vomiting and patient is tolerating diet. Guarded prognosis. On exam vital signs are stable. Temp is 98.0F, pulse is 98, respirations are 22, blood pressure is 147/72, oxygen saturation is 96% on 2 L via nasal cannula. Cardio S1, S2 are muffled. Respiratory shows diminished breath sounds at the bases with some mild scattered rhonchi noted. Abdomen is soft, obese, and mildly tender upon palpation. Nervous system shows no focal deficits. Please refer to medication reconciliation sheet for a list of medications. Patient Condition at Discharge: Fair Plan - Discharge Summary Discharge Rx Participant: No New Discharge Prescriptions: New Apixaban [Eliquis] 5 mg PO BID 30 Days #60 tab Cephalexin [Keflex] 500 mg PO Q8HR 10 Days #30 cap Furosemide [Lasix] 40 mg PO BID@0900,1600 30 Days #60 tab Continue ALPRAZolam [Xanax] 0.5 mg PO HS Montelukast [Singulair] 10 mg PO HS Citalopram Hydrobromide [CeleXA] 20 mg PO DAILY Calcium Carbonate/Vitamin D3 [Calcium 600-Vit D3 400 Tablet] 1 tab PO DAILY Vitamin E (Dl,Tocopheryl Acet) [Vitamin E] 400 unit PO DAILY Aspirin [Adult Low Dose Aspirin EC] 81 mg PO DAILY Ibuprofen [Advil] 200 mg PO TID Spironolactone [Aldactone] 25 mg PO BID Albuterol Nebulized [Ventolin Nebulized] 2.5 mg INHALATION Q6H PRN PRN Reason: Shortness Of Breath Lansoprazole [Prevacid] 30 mg PO DAILY Pramipexole [Mirapex] 0.125 mg PO BID Potassium Chloride ER [K-Dur 20] 20 meq PO DAILY Levothyroxine Sodium [Euthyrox] 50 mcg PO DAILY Cholecalciferol [Vitamin D3 (25 Mcg = 1000 Iu)] 1,000 unit PO DAILY Ascorbic Acid [Vitamin C] 500 mg PO DAILY Salamol Inhal 1 puff INHALATION RT-DAILY PRN PRN Reason: Shortness Of Breath Changed atenoloL [Atenolol] 100 mg PO DAILY #0 Discontinued Furosemide [Lasix] 40 mg PO BID Discharge Medication List ALPRAZolam [Xanax] 0.5 mg PO HS 02/28/15 [History] Calcium Carbonate/Vitamin D3 [Calcium 600-Vit D3 400 Tablet] 1 tab PO DAILY 02/28/15 [History] Citalopram Hydrobromide [CeleXA] 20 mg PO DAILY 02/28/15 [History] Montelukast [Singulair] 10 mg PO HS 02/28/15 [History] Vitamin E (Dl,Tocopheryl Acet) [Vitamin E] 400 unit PO DAILY 11/17/15 [History] Aspirin [Adult Low Dose Aspirin EC] 81 mg PO DAILY 05/08/16 [History] Ibuprofen [Advil] 200 mg PO TID 08/05/19 [History] Albuterol Nebulized [Ventolin Nebulized] 2.5 mg INHALATION Q6H PRN 10/22/19 [History] Ascorbic Acid [Vitamin C] 500 mg PO DAILY 10/22/19 [History] Cholecalciferol [Vitamin D3 (25 Mcg = 1000 Iu)] 1,000 unit PO DAILY 10/22/19 [History] Lansoprazole [Prevacid] 30 mg PO DAILY 10/22/19 [History] Levothyroxine Sodium [Euthyrox] 50 mcg PO DAILY 10/22/19 [History] Potassium Chloride ER [K-Dur 20] 20 meq PO DAILY 10/22/19 [History] Pramipexole [Mirapex] 0.125 mg PO BID 10/22/19 [History] Salamol Inhal 1 puff INHALATION RT-DAILY PRN 10/22/19 [History] Spironolactone [Aldactone] 25 mg PO BID 10/22/19 [History] Apixaban [Eliquis] 5 mg PO BID 30 Days #60 tab 10/28/19 [Rx] Cephalexin [Keflex] 500 mg PO Q8HR 10 Days #30 cap 10/28/19 [Rx] Furosemide [Lasix] 40 mg PO BID@0900,1600 30 Days #60 tab 10/28/19 [Rx] atenoloL [Atenolol] 100 mg PO DAILY #0 10/28/19 [Rx] Follow up Appointment(s)/Referral(s): [facility] [NON-STAFF] - (Supplied Oxygen) Nan Bro MD [Primary Care Provider] - (Patient to call & schedule follow up) Steven Bassett MD [STAFF PHYSICIAN] - 1 Week (Please call to schedule follow up ) Patient Instructions/Handouts: Heart Failure (DC) Activity/Diet/Wound Care/Special Instructions: Activity Limited until follow-up Continue current diet Continue with antibiotics for 10 days until finished Follow-up with primary care provider Follow-up with cardiology Continue with Lasix 40 mg twice daily Continue with atenolol 100 mg daily Discuss with the family about possibility of Homecare Discharge Disposition: HOME SELF-CARE
== END 2019-10-28 16:05 | disposition home or self-care (01) | DRG 292 ==
LOC: EC 15:36 → 3SCARD 20:35
PROVIDERS: ADMIT Hospitalist; ATTEND Hospitalist
DX: I11.0 Hypertensive heart disease with heart failure (principal); E87.1 Hypo-osmolality and hyponatremia; E44.1 Mild protein-calorie malnutrition; L03.311 Cellulitis of abdominal wall; Z68.41 Body mass index [BMI] 40.0-44.9, adult; I50.33 Acute on chronic diastolic (congestive) heart failure; E66.9 Obesity, unspecified; G47.33 Obstructive sleep apnea (adult) (pediatric); Z99.89 Dependence on other enabling machines and devices; D63.8 Anemia in other chronic diseases classified elsewhere; E03.9 Hypothyroidism, unspecified; E11.9 Type 2 diabetes mellitus without complications; I27.20 Pulmonary hypertension, unspecified; I48.0 Paroxysmal atrial fibrillation; J44.9 Chronic obstructive pulmonary disease, unspecified; K21.9 Gastro-esophageal reflux disease without esophagitis; K44.9 Diaphragmatic hernia without obstruction or gangrene; K76.0 Fatty (change of) liver, not elsewhere classified; K74.60 Unspecified cirrhosis of liver; Z11.59 Encounter for screening for other viral diseases; E88.09 Other disorders of plasma-protein metabolism, not elsewhere classified; Z79.01 Long term (current) use of anticoagulants; Z79.82 Long term (current) use of aspirin; Z79.890 Hormone replacement therapy; Z79.899 Other long term (current) drug therapy; Z86.73 Personal history of transient ischemic attack (TIA), and cerebral infarction without residual deficits; Z87.891 Personal history of nicotine dependence; Z88.0 Allergy status to penicillin; Z90.49 Acquired absence of other specified parts of digestive tract; Z90.710 Acquired absence of both cervix and uterus; Z88.5 Allergy status to narcotic agent; Z88.8 Allergy status to other drugs, medicaments and biological substances; F41.9 Anxiety disorder, unspecified; F32.9 Major depressive disorder, single episode, unspecified; Z79.1 Long term (current) use of non-steroidal anti-inflammatories (NSAID); R13.10 Dysphagia, unspecified; Z80.1 Family history of malignant neoplasm of trachea, bronchus and lung; Z80.0 Family history of malignant neoplasm of digestive organs
CPT/HCPCS: 36415; 71046; 76705; 80048; 80053; 83605; 83735; 83880; 84484; 85025; 85610; 85730; 87040; 93005; 93306; 94760; 96374; 99285

== ENCOUNTER 2019-12-10 06:26 | Day surgery (SDC) | payer MEDICARE ==
[~2019-12-10 06:26] MED LIST changes: +ALPRAZolam 0.25 MG TAB PO PRN; +ALPRAZolam 0.5 MG TAB PO PRN; +ASPIRIN 325 MG TAB PO STA; +ATORVASTATIN 80 MG TAB PO STA; -LACTATED RINGERS 1,000 ML IV SCH; +NITROGLYCERIN SL TABS 0.4 MG TAB SUBLINGUAL PRN; +SODIUM CHLORIDE 0.9% 1,000 ML in EMPTY BAG 1 BAG IV ONE
[2019-12-10 07:08] VITALS: RESP 16; TEMP 98.4
[2019-12-10] MEDS ORDERED: VERAPAMIL 2.5 MG/ML 2 ML AMP ONE (07:17)
[2019-12-10] MEDS ORDERED: LIDOCAINE 1% INJ 10MG/ML (20 ML MDV) ONE (07:18)
[2019-12-10] MEDS: MIDAZOLAM 2 MG/2 ML VIAL IVP ONE ×2 (07:33→07:39)
[2019-12-10] MEDS ORDERED: HEPARIN SODIUM 1,000 UN/ML (10ML VL) ONE (07:36)
[2019-12-10] MEDS ORDERED: LIDOCAINE 1% INJ 10MG/ML (20 ML MDV) SQ ONE (07:38)
[2019-12-10] MEDS ORDERED: VERAPAMIL SYRINGE (5 MG/10 ML) INTRAARTER ONE (07:39)
[2019-12-10] MEDS ORDERED: HEPARIN SODIUM 1,000 UN/ML (10ML VL) IV ONE (07:43)
[2019-12-10] MEDS ORDERED: IOPAMIDOL-370 100ML BTL INJ ONE (07:50)
[2019-12-10] MEDS ORDERED: SODIUM CHLORIDE 0.9% 1,000 ML IV SCH (08:00)
--- NOTE | 2019-12-10 09:28 | CC ---
CARDIAC CATHETERIZATION REPORT DATE OF SERVICE: 12/10/2019 PROCEDURE: Left heart catheterization and coronary angiography. PERFORMED BY: Dr. Jared Webster. Moderate conscious sedation time was 13 minutes. Patient was administered Versed. Oxygenation and EKG were monitored closely. CLINICAL INFORMATION: Mrs. Thais Gamboa is a 74-year-old lady with history of obstructive sleep apnea, does not wear the CPAP, hypertension, pulmonary hypertension, diastolic heart failure with significant volume overload was recently hospitalized and diuresed aggressively. She has chest tightness, pressure with activity and given her significant risk factors which include diet-controlled diabetes, hypertension, hyperlipidemia, she was advised coronary angiography after due discussion regarding risks, benefits, and options. PROCEDURE NOTE: Under local anesthesia and strict aseptic precautions, a 6-Urdu introducer was placed in the right radial artery. Using a JL3.5 and JR4 catheters, I performed coronary angiography and the same right Tae catheter was used to check LV pressures. LV gram was not performed. The sheath was taken out and TR band applied as per protocol with good hemostasis and saturation of the fingers of the right hand was 95%. Results were discussed with the patient and family. She will be discharged later on today if she remains stable. CARDIAC CATHETERIZATION FINDINGS: The left ventricular end-diastolic pressure was about 9 mmHg without any gradient across the aortic valve. CORONARY ANGIOGRAPHY FINDINGS: RIGHT CORONARY ARTERY: Large dominant vessel. No significant disease. Bifurcates into a large PLV and PDA, both of which are free of significant disease other than minor irregularities. LEFT MAIN CORONARY ARTERY: Short patent disease-free vessel that bifurcates into LAD and circumflex. LEFT ANTERIOR DESCENDING CORONARY ARTERY: Good caliber vessel with good distribution has mild calcification. It gives off septal and diagonal branches, runs all the way to the apex supplying a sizable amount of myocardium. A 20%-30% irregularity is noted throughout, but no critical stenosis. LEFT POSTERIOR CIRCUMFLEX CORONARY ARTERY: Nondominant vessel, gives off 2 obtuse marginals and post lateral branch, has minor irregularities. Mild to moderate calcification. No significant obstructive disease. LEFT VENTRICULOGRAM: LV-gram was not performed. FINAL IMPRESSION: This patient has a right dominant system. Normal filling pressures. No gradient across the aortic valve. There is no significant obstructive CAD. RECOMMENDATIONS: Findings were discussed with the patient and her . I am recommending continued medical therapy with risk factor modification. No intervention necessary. Patient will be discharged later on today if she remains stable. MMODL / IJN: [id number] /
[2019-12-10 09:58] LABS: Anisocytosis Slight; Basophils % (A) 1 %; Eosinophils # (A) 0.2 k/uL (0-0.7); Eosinophils % (A) 4 %; HCT 30.8 % (34.0-46.0); HGB 9.2 gm/dL (11.4-16.0); Hypochromasia Marked; Lymphocytes # (A) 1.3 k/uL (1.0-4.8); Lymphocytes % (A) 26 %; MCH 23.6 pg (25.0-35.0); MCV 78.7 fL (80.0-100.0); Mean Platelet Volume 7.1; Microcytosis Slight; Monocytes # (A) 0.3 k/uL (0-1.0); Monocytes % (A) 6 %; Neutrophils # (A) 2.9 k/uL (1.3-7.7); Neutrophils % (A) 61 %; Platelet Count 122 k/uL (150-450); RBC 3.92 m/uL (3.80-5.40); WBC 4.9 k/uL (3.8-10.6)
[2019-12-10 10:15] LABS: Calcium 8.6 mg/dL (8.4-10.2)
[2019-12-10 12:26] VITALS: BP 126/60; PULSE 69
== END 2019-12-10 14:00 | disposition home or self-care (01) ==
LOC: CATHCVL 06:26
PROVIDERS: ATTEND Internal Medicine Interventional Cardiology
DX: I20.0 Unstable angina (principal); I10 Essential (primary) hypertension; I27.20 Pulmonary hypertension, unspecified; I48.0 Paroxysmal atrial fibrillation; E11.9 Type 2 diabetes mellitus without complications; E78.5 Hyperlipidemia, unspecified; G47.33 Obstructive sleep apnea (adult) (pediatric); E78.00 Pure hypercholesterolemia, unspecified; K21.9 Gastro-esophageal reflux disease without esophagitis; Z79.01 Long term (current) use of anticoagulants; Z79.82 Long term (current) use of aspirin; Z79.890 Hormone replacement therapy; Z79.899 Other long term (current) drug therapy; Z88.0 Allergy status to penicillin; Z88.5 Allergy status to narcotic agent; Z88.8 Allergy status to other drugs, medicaments and biological substances; Z91.048 Other nonmedicinal substance allergy status; Z87.891 Personal history of nicotine dependence
CPT/HCPCS: 93458; 80048; 85025; C1769; C1894; J2250; J2001; J1644; Q9967

== ENCOUNTER 2020-01-24 07:49 | Inpatient (IN) | payer MEDICARE ==
[2020-01-24] MEDS ORDERED: SODIUM CHLORIDE 0.9% 1,000 ML IV STA (07:53)
--- NOTE | 2020-01-24 07:56 | ED ---
General Adult HPI - General Stated complaint: Poss Stroke Time Seen by Provider: 01/24/20 07:52 Source: EMS, RN notes reviewed Mode of arrival: EMS Limitations: altered mental status, physical limitation - History of Present Illness Initial comments: Patient is a pleasant 74-year-old female presenting to the emergency department after found by family wandering around the house and confused. Patient was found around 30 or 40 minutes prior to arrival. Patient did complain to EMS about headache. Patient was oriented to self. Patient at this time is a poor historian however has no complaints. Patient denies headache at this time. EMS did notice patient to have right-sided arm weakness earlier and difficulty performing exam secondary to patient noncompliance. Unclear patient has history of similar symptoms previously. Unclear last known well. Patient reportedly di d start Eliquis a couple of months ago secondary to atrial fibrillation. - Related Data Home Medications Medication Instructions Recorded Confirmed ALPRAZolam [Xanax] 0.5 mg PO HS 02/28/15 12/10/19 Calcium Carbonate/Vitamin D3 1 tab PO DAILY 02/28/15 12/10/19 [Calcium 600-Vit D3 400 Tablet] Citalopram Hydrobromide [CeleXA] 20 mg PO HS 02/28/15 12/10/19 Montelukast [Singulair] 10 mg PO HS 02/28/15 12/10/19 Vitamin E (Dl,Tocopheryl Acet) 400 unit PO DAILY 11/17/15 12/10/19 [Vitamin E] Albuterol Nebulized [Ventolin 2.5 mg INHALATION Q6H PRN 10/22/19 12/04/19 Nebulized] Ascorbic Acid [Vitamin C] 500 mg PO DAILY 10/22/19 12/10/19 Cholecalciferol [Vitamin D3 (25 1,000 unit PO DAILY 10/22/19 12/10/19 Mcg = 1000 Iu)] Lansoprazole [Prevacid] 30 mg PO QAM 10/22/19 12/10/19 Levothyroxine Sodium [Euthyrox] 50 mcg PO QAM 10/22/19 12/10/19 Potassium Chloride ER [K-Dur 20] 20 meq PO DAILY 10/22/19 12/10/19 Pramipexole [Mirapex] 0.125 mg PO BID 10/22/19 12/10/19 Salamol Inhal 1 puff INHALATION RT-DAILY PRN 10/22/19 12/10/19 Spironolactone [Aldactone] 25 mg PO BID 10/22/19 12/10/19 Furosemide [Lasix] 40 mg PO HS 12/04/19 12/10/19 Furosemide [Lasix] 60 mg PO QAM 12/04/19 12/10/19 atenoloL [Atenolol] 100 mg PO QAM 12/04/19 12/10/19 Previous Rx's Medication Instructions Recorded Apixaban [Eliquis] 5 mg PO BID 30 Days #60 tab 10/28/19 Allergies Allergy/AdvReac Type Severity Reaction Status Date / Time adhesive tape Allergy blisters Verified 01/24/20 08:52 morphine Allergy Vomiting Verified 01/24/20 08:52 Penicillins Allergy numbness Verified 01/24/20 08:52 of lips, hands , feet prochlorperazine Allergy Unknown Verified 01/24/20 08:52 [From Compazine] prochlorperazine edisylate Allergy Unknown Verified 01/24/20 08:52 [From Compazine] prochlorperazine maleate Allergy Unknown Verified 01/24/20 08:52 [From Compazine] esomeprazole magnesium AdvReac Severe BURNING Verified 01/24/20 08:52 [From Nexium] PAIN fluticasone AdvReac Unknown Verified 01/24/20 08:52 [From Advair Diskus] salmeterol AdvReac Unknown Verified 01/24/20 08:52 [From Advair Diskus] Review of Systems ROS Statement: Those systems with pertinent positive or pertinent negative responses have been documented in the HPI. ROS Other: All systems not noted in ROS Statement are negative. Limitations: ROS unobtainable due to patients medical condition Past Medical History Past Medical History: Asthma, Heart Failure, COPD, Diabetes Mellitus, GERD/Reflux, Hypertension, Liver Disease, Osteoarthritis (OA), Supraventricular Tachycardia (SVT), Thyroid Disorder Additional Past Medical History / Comment(s): SEE CARDIOLOGY HISTORY PROVIDED BY DR. ELVIRA STRICKLAND. IP @ [facility] FROM [id number] FOR PULMONARY EDEMA, CHF, CELLULITIS. INCONTINENT/USES PADS. O2 AT HOME? DYSPHAGIA FROM GERD. hx migraines. LEFT "eye stroke". Hiatal hernia. NON ALCHOLIC CIRRHOSIS. History of Any Multi-Drug Resistant Organisms: None Reported Past Surgical History: Breast Surgery, Cholecystectomy, Hysterectomy Additional Past Surgical History / Comment(s): Rectocele. Breast biopsies. Ambrose fundoplication. Past Anesthesia/Blood Transfusion Reactions: Postoperative Nausea & Vomiting (PONV) Past Psychological History: Anxiety, Depression Smoking Status: Former smoker Past Alcohol Use History: None Reported Additional Past Alcohol Use History / Comment(s): quit smoking 1986, smoked for 25 yrs- < 1 PPD Past Drug Use History: None Reported - Past Family History Mother Family Medical History: Cancer Additional Family Medical History / Comment(s): lung Father Family Medical History: Cancer Additional Family Medical History / Comment(s): lung Brother(s) Family Medical History: Cancer, Liver Disease Additional Family Medical History / Comment(s): colon General Exam Limitations: altered mental status, physical limitation General appearance: alert Head exam: Present: atraumatic Eye exam: Present: normal appearance, other (pupil on the left slightly dilated however is reactive.) ENT exam: Present: normal oropharynx Neck exam: Present: normal inspection Respiratory exam: Present: normal lung sounds bilaterally Cardiovascular Exam: Present: regular rate, normal rhythm GI/Abdominal exam: Present: soft. Absent: tenderness Extremities exam: Present: normal inspection. Absent: pedal edema, calf tenderness Neurological exam: Present: alert, altered, CN II-XII intact (noted left pupil is slightly larger than right) Expanded Neurological exam: Present: inattentive, protecting the airway, other (very limited speech) Patient oriented to: Present: person. Absent: place, time Cranial nerves: EOM's Intact: Normal, Facial Sensation: Normal Sensory exam: Upper Extremity Light Touch: Normal, Lower Extremity Light Touch: Normal Motor strength exam: RUE: 5, LUE: 5, RLE: 4, LLE: 5 Eye Response: (4) open spontaneously Motor Response: (6) obeys commands (needs to be told several times) Verbal Response: (4) confused conversation Psychiatric exam: Present: normal affect, normal mood Skin exam: Present: normal color Course Vital Signs 01/24/20 01/24/20 08:04 08:58 Temperature 98.2 F Pulse Rate 78 78 Respiratory 20 16 Rate Blood Pressure 143/59 149/53 O2 Sat by Pulse 96 100 Oximetry - Reevaluation(s) Reevaluation #1: 01/24/20 07:56 patient sent right to computed tomography scan. Initial assessment done there. Code stroke was called. 01/24/20 08:08 patient reevaluated. Further history taken from . Last known well was around 9:30 PM yesterday. Case was also discussed with Dr. Dominguez, neurology who agrees patient is not a TPA candidate and will review films. 01/24/20 08:19 states patient just had cataract surgery 3 days ago. She did not hold her Eliquis for this procedure. updated. Exam unchanged. 01/24/20 08:54 case was again discussed with Dr. Dominguez who does recommend keeping patient here. He is aware neurology is not available till tomorrow. He does recommend baby aspirin, Lipitor and ordering an MRI. 01/24/20 09:00 Case was discussed with Dr. Jerez, who will admit. EKG Findings - EKG Comments: EKG Findings:: normal sinus rhythm 78. RI 140. QRS 84. QT 400. QTc 456. Normal axis. Normal QRS. No acute ST change. Medical Decision Making - Lab Data Result diagrams: 01/24/20 08:05 01/24/20 08:05 Lab Results 01/24/20 01/24/20 01/24/20 Range/Units 08:05 08:05 08:05 WBC 4.4 (3.8-10.6) k/uL RBC 3.41 L (3.80-5.40) m/uL Hgb 7.6 L D (11.4-16.0) gm/dL Hct 25.8 L (34.0-46.0) % MCV 75.7 L (80.0-100.0) fL MCH 22.2 L (25.0-35.0) pg MCHC 29.4 L (31.0-37.0) g/dL RDW 16.2 H (11.5-15.5) % Plt Count 115 L (150-450) k/uL Neutrophils % 57 % Lymphocytes % 31 % Monocytes % 7 % Eosinophils % 3 % Basophils % 0 % Neutrophils # 2.5 (1.3-7.7) k/uL Lymphocytes # 1.4 (1.0-4.8) k/uL Monocytes # 0.3 (0-1.0) k/uL Eosinophils # 0.1 (0-0.7) k/uL Basophils # 0.0 (0-0.2) k/uL Hypochromasia Marked Poikilocytosis Slight Anisocytosis Slight Microcytosis Slight PT 13.3 H (9.0-12.0) sec INR 1.3 H (<1.2) APTT 26.2 (22.0-30.0) sec Sodium 135 L (137-145) mmol/L Potassium 4.7 (3.5-5.1) mmol/L Chloride 105 (98-107) mmol/L Carbon Dioxide 25 (22-30) mmol/L Anion Gap 5 mmol/L BUN 31 H (7-17) mg/dL Creatinine 1.24 H (0.52-1.04) mg/dL Est GFR (CKD-EPI)AfAm 49 (>60 ml/min/1.73 sqM) Est GFR (CKD-EPI)NonAf 42 (>60 ml/min/1.73 sqM) Glucose 110 H (74-99) mg/dL POC Glucose (mg/dL) (75-99) mg/dL POC Glu Sinker Puller ID Calcium 8.5 (8.4-10.2) mg/dL Total Bilirubin 1.0 (0.2-1.3) mg/dL AST 44 H (14-36) U/L ALT 20 (4-34) U/L Alkaline Phosphatase 211 H (38-126) U/L Ammonia (<30) umol/L Troponin I (0.000-0.034) ng/mL Total Protein 5.6 L (6.3-8.2) g/dL Albumin 3.0 L (3.5-5.0) g/dL Urine Color Urine Appearance (Clear) Urine pH (5.0-8.0) Ur Specific [place] (1.001-1.035) Urine Protein (Negative) Urine Glucose (UA) (Negative) Urine Ketones (Negative) Urine Blood (Negative) Urine Nitrite (Negative) Urine Bilirubin (Negative) Urine Urobilinogen (<2.0) mg/dL Ur Leukocyte Esterase (Negative) 01/24/20 01/24/20 01/24/20 Range/Units 08:05 08:06 08:23 WBC (3.8-10.6) k/uL RBC (3.80-5.40) m/uL Hgb (11.4-16.0) gm/dL Hct (34.0-46.0) % MCV (80.0-100.0) fL MCH (25.0-35.0) pg MCHC (31.0-37.0) g/dL RDW (11.5-15.5) % Plt Count (150-450) k/uL Neutrophils % % Lymphocytes % % Monocytes % % Eosinophils % % Basophils % % Neutrophils # (1.3-7.7) k/uL Lymphocytes # (1.0-4.8) k/uL Monocytes # (0-1.0) k/uL Eosinophils # (0-0.7) k/uL Basophils # (0-0.2) k/uL Hypochromasia Poikilocytosis Anisocytosis Microcytosis PT (9.0-12.0) sec INR (<1.2) APTT (22.0-30.0) sec Sodium (137-145) mmol/L Potassium (3.5-5.1) mmol/L Chloride (98-107) mmol/L Carbon Dioxide (22-30) mmol/L Anion Gap mmol/L BUN (7-17) mg/dL Creatinine (0.52-1.04) mg/dL Est GFR (CKD-EPI)AfAm (>60 ml/min/1.73 sqM) Est GFR (CKD-EPI)NonAf (>60 ml/min/1.73 sqM) Glucose (74-99) mg/dL POC Glucose (mg/dL) 120 H (75-99) mg/dL POC Glu Sinker Puller ID Radha Colón Calcium (8.4-10.2) mg/dL Total Bilirubin (0.2-1.3) mg/dL AST (14-36) U/L ALT (4-34) U/L Alkaline Phosphatase (38-126) U/L Ammonia (<30) umol/L Troponin I <0.012 (0.000-0.034) ng/mL Total Protein (6.3-8.2) g/dL Albumin (3.5-5.0) g/dL Urine Color Light Yellow Urine Appearance Clear (Clear) Urine pH 7.0 (5.0-8.0) Ur Specific [place] 1.014 (1.001-1.035) Urine Protein Negative (Negative) Urine Glucose (UA) Negative (Negative) Urine Ketones Negative (Negative) Urine Blood Negative (Negative) Urine Nitrite Negative (Negative) Urine Bilirubin Negative (Negative) Urine Urobilinogen <2.0 (<2.0) mg/dL Ur Leukocyte Esterase Negative (Negative) 01/24/20 Range/Units 08:24 WBC (3.8-10.6) k/uL RBC (3.80-5.40) m/uL Hgb (11.4-16.0) gm/dL Hct (34.0-46.0) % MCV (80.0-100.0) fL MCH (25.0-35.0) pg MCHC (31.0-37.0) g/dL RDW (11.5-15.5) % Plt Count (150-450) k/uL Neutrophils % % Lymphocytes % % Monocytes % % Eosinophils % % Basophils % % Neutrophils # (1.3-7.7) k/uL Lymphocytes # (1.0-4.8) k/uL Monocytes # (0-1.0) k/uL Eosinophils # (0-0.7) k/uL Basophils # (0-0.2) k/uL Hypochromasia Poikilocytosis Anisocytosis Microcytosis PT (9.0-12.0) sec INR (<1.2) APTT (22.0-30.0) sec Sodium (137-145) mmol/L Potassium (3.5-5.1) mmol/L Chloride (98-107) mmol/L Carbon Dioxide (22-30) mmol/L Anion Gap mmol/L BUN (7-17) mg/dL Creatinine (0.52-1.04) mg/dL Est GFR (CKD-EPI)AfAm (>60 ml/min/1.73 sqM) Est GFR (CKD-EPI)NonAf (>60 ml/min/1.73 sqM) Glucose (74-99) mg/dL POC Glucose (mg/dL) (75-99) mg/dL POC Glu Sinker Puller ID Calcium (8.4-10.2) mg/dL Total Bilirubin (0.2-1.3) mg/dL AST (14-36) U/L ALT (4-34) U/L Alkaline Phosphatase (38-126) U/L Ammonia 128 H (<30) umol/L Troponin I (0.000-0.034) ng/mL Total Protein (6.3-8.2) g/dL Albumin (3.5-5.0) g/dL Urine Color Urine Appearance (Clear) Urine pH (5.0-8.0) Ur Specific [place] (1.001-1.035) Urine Protein (Negative) Urine Glucose (UA) (Negative) Urine Ketones (Negative) Urine Blood (Negative) Urine Nitrite (Negative) Urine Bilirubin (Negative) Urine Urobilinogen (<2.0) mg/dL Ur Leukocyte Esterase (Negative) - Radiology Data Radiology results: image reviewed (computed tomography scan of the brain shows no acute hemorrhage or shift. Atrophy and chronic small vessel ischemic changes redemonstrated.) Critical Care Time Critical Care Time: Yes Total Critical Care Time: 32 Disposition Clinical Impression: CVA (cerebral vascular accident) Disposition: ADMITTED IP TO THIS [facility] Condition: Serious Is patient prescribed a controlled substance at d/c from ED?: No Referrals: None,Stated [REFERRING] - 1-2 days Decision Time: 08:55
--- NOTE | 2020-01-24 08:12 | CT ---
EXAMINATION TYPE: CT brain wo con for TPA DATE OF EXAM: 01/24/2020 HISTORY: Neuro deficits acute onset. CT DLP: 1089 mGycm. Automated Exposure Control for Dose Reduction was Utilized. TECHNIQUE: CT scan of the head is performed without contrast. COMPARISON: CT head March 23, 2019. FINDINGS: There is no acute intracranial hemorrhage or midline shift identified. There is diffuse v entricular and sulcal prominence consistent with diffuse age-related cerebral atrophy. There is low- attenuation in the periventricular white matter consistent with chronic small vessel ischemic change. The globes are intact and the visualized sinuses are clear. IMPRESSION: No acute intracranial hemorrhage or midline shift. There is [id number] diffuse ag e-related cerebral atrophy and chronic small vessel ischemic change redemonstrated. No significant c hange from prior study.
[2020-01-24 08:17] LABS: Glucose,Whole Blood 120 mg/dL (75-99)
[2020-01-24 08:26] LABS: INR 1.3 (<1.2); Partial Thromboplastin Time 26.2 sec (22.0-30.0); Prothrombin Time 13.3 sec (9.0-12.0)
--- NOTE | 2020-01-24 08:35 | CT ---
EXAMINATION TYPE: CT angio head neck DATE OF EXAM: 01/24/2020 HISTORY: Neuro deficits, acute onset. Code stroke. COMPARISON: None. CT DLP: 587 mGycm. Automated Exposure Control for Dose Reduction was Utilized. TECHNIQUE: CTA scan of the head and neck are performed with IV Contrast, patient injected with 65 mL of Isovue 370, axial images are obtained, coronal and sagittal reformatted images are reviewed. Thre e-D reconstructed images are created on an independent workstation and reviewed. FINDINGS: Carotid/Vascular Structures: Bovine type arch. Normal origin right common carotid artery from the rig ht brachiocephalic artery. Tortuous course right common carotid artery. No significant plaque or sten osis. Mild calcified plaque right carotid bulb. Mild calcified plaque proximal internal carotid arter y. No significant stenosis. Tortuous course to right internal carotid artery with mild calcified plaq ue supraclinoid segment. No significant stenosis. Patent right external carotid artery without signif icant plaque or stenosis. No significant plaque or stenosis left common carotid artery. [id number] calcified plaque left carotid bulb extending into proximal internal carotid artery without significant stenosis. Some tortu ous course to left internal carotid artery with mild calcified plaque supraclinoid segment. No signif icant stenosis. Patent external carotid artery without significant stenosis. There is codominant vertebral basilar system. Vertebral arteries are patent to basilar junction. Ther e is no significant focal stenosis or aneurysmal change in the posterior circulation. There are hypop lastic bilateral posterior communicating arteries. Anterior circulation shows no significant focal st enosis or aneurysm. Hypoplastic anterior communicating artery noted. Other: Lung apices show motion artifact degradation. Multifocal areas of edema and/or infiltrate felt present. Correlate clinically. Multilevel moderate spurring in the spine. IMPRESSION: 1. No significant stenosis in common or internal carotid arteries bilaterally. 2. No significant stenosis or aneurysm at the level of the [place].
[2020-01-24 08:40] LABS: Anisocytosis Slight; Basophils % (A) 0 %; Eosinophils # (A) 0.1 k/uL (0-0.7); Eosinophils % (A) 3 %; HCT 25.8 % (34.0-46.0); Hypochromasia Marked; Lymphocytes # (A) 1.4 k/uL (1.0-4.8); Lymphocytes % (A) 31 %; MCH 22.2 pg (25.0-35.0); MCHC 29.4 g/dL (31.0-37.0); MCV 75.7 fL (80.0-100.0); Mean Platelet Volume 7.1; Microcytosis Slight; Monocytes # (A) 0.3 k/uL (0-1.0); Monocytes % (A) 7 %; Neutrophils # (A) 2.5 k/uL (1.3-7.7); Neutrophils % (A) 57 %; Platelet Count 115 k/uL (150-450); Poikilocytosis Slight; RBC 3.41 m/uL (3.80-5.40); RDW 16.2 % (11.5-15.5); WBC 4.4 k/uL (3.8-10.6)
[2020-01-24 08:42] LABS: Calcium 8.5 mg/dL (8.4-10.2); Potassium 4.7 mmol/L (3.5-5.1); Total Protein 5.6 g/dL (6.3-8.2)
[2020-01-24 08:43] LABS: HGB 7.6 gm/dL (11.4-16.0)
[2020-01-24 08:54] LABS: Appearance,Urine Clear (Clear); Bilirubin,Urine Negative (Negative); Blood,Urine Negative (Negative); Color,Urine Light Yellow; Glucose,Urine (UA) Negative (Negative); Ketones,Urine Negative (Negative); Leukocyte Esterase,Urine Negative (Negative); Nitrite,Urine Negative (Negative); Protein,Urine Negative (Negative); Specific Gravity,Urine 1.014 (1.001-1.035); Urobilinogen,Urine <2.0 mg/dL (<2.0)
[2020-01-24] MEDS ORDERED: ATORVASTATIN 40 MG TAB PO SCH (09:00)
--- NOTE | 2020-01-24 09:07 | XR ---
EXAMINATION TYPE: XR chest 1V portable DATE OF EXAM: 01/24/2020 COMPARISON: Chest x-ray October 22, 2019. CT chest November 19, 2018 HISTORY: Altered mental status and weakness. TECHNIQUE: Single AP portable frontal upright view of the chest is obtained. FINDINGS: There is some chronic parenchymal change without suspicious new focal air space opacity, p leural effusion, or pneumothorax seen bilaterally. The cardiac silhouette size remains enlarged. T he osseous structures are demineralized. IMPRESSION: Chronic changes and cardiomegaly without acute pulmonary process.
[2020-01-24] MEDS ORDERED: LACTULOSE 20 GM/30 ML CUP PO ONE (09:16)
[2020-01-24] MEDS: SODIUM CHLORIDE 0.9% 1,000 ML IV SCH ×2 (09:21→20:19)
[2020-01-24] MEDS: ASPIRIN 81 MG PO SCH (09:23)
[2020-01-24] MEDS ORDERED: ONDANSETRON 4 MG/2 ML VIAL IVP STA (10:04)
[2020-01-24] MEDS: LACTULOSE 20 GM/30 ML CUP PO SCH ×3 (12:46→20:18)
--- NOTE | 2020-01-24 12:58 | P.CONS ---
History of Present Illness - Reason for Consult Consult date: 01/24/20 Hepatic encephalopathy Requesting physician: Cari Jerez - Chief Complaint Confusion - History of Present Illness 74-year-old female with multiple medical comorbidities including hypertension, diabetes mellitus, congestive heart failure with recent admission for fluid overload, cellulitis, GERD, prior Ambrose fundoplication, osteoarthritis, atrial fibrillation on Eliquis therapy as well as a known history of nonalcoholic fatty liver disease and presented to the hospital due to confusion. Of note the patient is currently pleasantly confused in bed and history is been taken in conversation with her and on review of the electronic medical record. The patient's reports that he found the patient in the bathroom standing in front of the mirror and was confused. EMS was called at that time and the patient was brought to the hospital for further evaluation. He reports that she was told approximately 10 years ago that she had nonalcoholic fatty liver disease in the had developed cirrhosis secondary to this. He denies any signs or symptoms of decompensated disease including GI bleed or encephalopathy in the past. She is also not required paracentesis in the past but was recently hospitalized due to fluid overload which was treated to congestive heart failure. She is on Lasix and Aldactone at home. On presentation to the hospital computed tomography scan of the head was negative for any evidence of a CVA. Patient was found to have markedly elevated ammonia at 128 with total bilirubin 1, alkaline phosphatase 211, AST 44 and ALT 20. Patient does have a history of anemia. Last EGD with the surgical service in 05/2016 significant for gastritis, and she has had prior hiatal hernia repair. Review of Systems Could not be obtained in a patient who is currently confused Past Medical History Past Medical History: Asthma, Heart Failure, COPD, Diabetes Mellitus, GERD/Reflux, Hypertension, Liver Disease, Osteoarthritis (OA), Supraventricular Tachycardia (SVT), Thyroid Disorder Additional Past Medical History / Comment(s): SEE CARDIOLOGY HISTORY PROVIDED BY DR. ELVIRA STRICKLAND. IP @ [facility] FROM [id number] FOR PULMONARY EDEMA, CHF, CELLULITIS. INCONTINENT/USES PADS. O2 AT HOME? DYSPHAGIA FROM GERD. hx migraines. LEFT "eye stroke". Hiatal hernia. NON ALCHOLIC CIRRHOSIS. History of Any Multi-Drug Resistant Organisms: None Reported Past Surgical History: Breast Surgery, Cholecystectomy, Hysterectomy Additional Past Surgical History / Comment(s): Rectocele. Breast biopsies. Ambrose fundoplication. Past Anesthesia/Blood Transfusion Reactions: Postoperative Nausea & Vomiting (PONV) Past Psychological History: Anxiety, Depression Smoking Status: Former smoker Past Alcohol Use History: None Reported Additional Past Alcohol Use History / Comment(s): quit smoking 1986, smoked for 25 yrs- < 1 PPD Past Drug Use History: None Reported - Past Family History Mother Family Medical History: Cancer Additional Family Medical History / Comment(s): lung Father Family Medical History: Cancer Additional Family Medical History / Comment(s): lung Brother(s) Family Medical History: Cancer, Liver Disease Additional Family Medical History / Comment(s): colon Medications and Allergies Home Medications Medication Instructions Recorded Confirmed Type ALPRAZolam [Xanax] 0.5 mg PO HS 02/28/15 01/24/20 History Calcium Carbonate/Vitamin D3 1 tab PO DAILY 02/28/15 01/24/20 History [Calcium 600-Vit D3 400 Tablet] Citalopram Hydrobromide [CeleXA] 20 mg PO HS 02/28/15 01/24/20 History Montelukast [Singulair] 10 mg PO HS 02/28/15 01/24/20 History Vitamin E (Dl,Tocopheryl Acet) 400 unit PO DAILY 11/17/15 01/24/20 History [Vitamin E] Albuterol Nebulized [Ventolin 2.5 mg INHALATION RT-Q6H PRN 10/22/19 01/24/20 History Nebulized] Ascorbic Acid [Vitamin C] 500 mg PO DAILY 10/22/19 01/24/20 History Cholecalciferol [Vitamin D3 (25 1,000 unit PO DAILY 10/22/19 01/24/20 History Mcg = 1000 Iu)] Lansoprazole [Prevacid] 30 mg PO QAM 10/22/19 01/24/20 History Levothyroxine Sodium [Euthyrox] 50 mcg PO QAM 10/22/19 01/24/20 History Potassium Chloride ER [K-Dur 20] 20 meq PO DAILY 10/22/19 01/24/20 History Pramipexole [Mirapex] 0.125 mg PO BID 10/22/19 01/24/20 History Salamol Inhal 1 puff INHALATION RT-DAILY PRN 10/22/19 01/24/20 History Spironolactone [Aldactone] 25 mg PO BID 10/22/19 01/24/20 History Apixaban [Eliquis] 5 mg PO BID 30 Days #60 tab 10/28/19 01/24/20 Rx Furosemide [Lasix] 40 mg PO HS 12/04/19 01/24/20 History Furosemide [Lasix] 60 mg PO QAM 12/04/19 01/24/20 History atenoloL [Atenolol] 100 mg PO QAM 12/04/19 01/24/20 History Atorvastatin [Lipitor] 20 mg PO HS 01/24/20 01/24/20 History Losartan [Cozaar] 25 mg PO DAILY 01/24/20 01/24/20 History Prednisolone Acetate/Pf 1 drop BOTH EYES BID 01/24/20 01/24/20 History [Prednisolone Acet 1% Eye Drop] Allergies Allergy/AdvReac Type Severity Reaction Status Date / Time adhesive tape Allergy blisters Verified 01/24/20 08:52 morphine Allergy Vomiting Verified 01/24/20 08:52 Penicillins Allergy numbness Verified 01/24/20 08:52 of lips, hands , feet prochlorperazine Allergy Unknown Verified 01/24/20 08:52 [From Compazine] prochlorperazine edisylate Allergy Unknown Verified 01/24/20 08:52 [From Compazine] prochlorperazine maleate Allergy Unknown Verified 01/24/20 08:52 [From Compazine] esomeprazole magnesium AdvReac Severe BURNING Verified 01/24/20 08:52 [From Nexium] PAIN fluticasone AdvReac Unknown Verified 01/24/20 08:52 [From Advair Diskus] salmeterol AdvReac Unknown Verified 01/24/20 08:52 [From Advair Diskus] Physical Exam Vitals: Vital Signs Temp Pulse Resp BP Pulse Ox 01/24/20 10:09 98 F 79 16 149/57 100 01/24/20 08:58 78 16 149/53 100 01/24/20 08:04 98.2 F 78 20 143/59 96 Intake and Output 01/23/20 01/24/20 01/24/20 22:59 06:59 14:59 Other: Weight 96.615 kg On physical examination, patient appears comfortable in no apparent distress. HEAD: Normocephalic, atraumatic. EYES: No scleral icterus. No conjunctival injection. MOUTH: No lesions, tongue midline. NECK: Trachea midline, no gross abnormalities. CHEST: Clear to auscultation with no wheezing or rhonchi appreciated. HEART: S1-S2 appreciated. ABDOMEN: Soft, obese. Bowel sounds are positive. No organomegaly. No guarding o r rigidity. EXTREMITIES: No pedal edema. SKIN: No rashes, no jaundice. NEUROLOGIC: Alert and oriented to person. Minimal asterixis noted. Results CBC & Chem 7: 01/24/20 08:05 01/24/20 08:05 Labs: Abnormal Lab Results - Last 24 Hours (Table) 01/24/20 01/24/20 01/24/20 Range/Units 08:05 08:05 08:05 RBC 3.41 L (3.80-5.40) m/uL Hgb 7.6 L D (11.4-16.0) gm/dL Hct 25.8 L (34.0-46.0) % MCV 75.7 L (80.0-100.0) fL MCH 22.2 L (25.0-35.0) pg MCHC 29.4 L (31.0-37.0) g/dL RDW 16.2 H (11.5-15.5) % Plt Count 115 L (150-450) k/uL PT 13.3 H (9.0-12.0) sec INR 1.3 H (<1.2) Sodium 135 L (137-145) mmol/L BUN 31 H (7-17) mg/dL Creatinine 1.24 H (0.52-1.04) mg/dL Glucose 110 H (74-99) mg/dL POC Glucose (mg/dL) (75-99) mg/dL AST 44 H (14-36) U/L Alkaline Phosphatase 211 H (38-126) U/L Ammonia (<30) umol/L Total Protein 5.6 L (6.3-8.2) g/dL Albumin 3.0 L (3.5-5.0) g/dL 01/24/20 01/24/20 Range/Units 08:06 08:24 RBC (3.80-5.40) m/uL Hgb (11.4-16.0) gm/dL Hct (34.0-46.0) % MCV (80.0-100.0) fL MCH (25.0-35.0) pg MCHC (31.0-37.0) g/dL RDW (11.5-15.5) % Plt Count (150-450) k/uL PT (9.0-12.0) sec INR (<1.2) Sodium (137-145) mmol/L BUN (7-17) mg/dL Creatinine (0.52-1.04) mg/dL Glucose (74-99) mg/dL POC Glucose (mg/dL) 120 H (75-99) mg/dL AST (14-36) U/L Alkaline Phosphatase (38-126) U/L Ammonia 128 H (<30) umol/L Total Protein (6.3-8.2) g/dL Albumin (3.5-5.0) g/dL CT Scan - head: report reviewed (No evidence of CVA on computed tomography scan of the head) Assessment and Plan (1) Non-alcoholic cirrhosis Narrative/Plan: 74-year-old female with multiple medical comorbidities including a 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 As per the patient's patient was previously well compensated with no prior episodes of GI bleeding, encephalopathy or need for paracentesis, however the patient was recently admitted for fluid overload which was attributed to congestive heart failure. Patient was found to be confused at home and brought to the ER for further evaluation where she was found to have markedly elevated ammonia at 128. Patient is currently on the medical floor receiving lactulose therapy. Current Visit: Yes Status: Acute Code(s): K74.60 - UNSPECIFIED CIRRHOSIS OF LIVER SNOMED Code(s): 017124998 (2) Hepatic encephalopathy Current Visit: Yes Status: Acute Code(s): K72.90 - HEPATIC FAILURE, UNSPEC IFIED WITHOUT COMA SNOMED Code(s): 80302386 (3) Microcytic anemia Narrative/Plan: Patient with a known pancytopenia with depressed platelet count and a baseline hemoglobin of approximately 5. Hemoglobin lower than baseline at this time with the patient has been denying any signs or symptoms of GI bleeding. No prior episodes of variceal bleeding. Last EGD in 05/2016 with findings of gastritis. She previously underwent hiatal hernia repair. Current Visit: Yes Status: Acute Code(s): D50.9 - IRON DEFICIENCY ANEMIA, UNSPECIFIED SNOMED Code(s): 691740206 Plan: Supportive care Okay for consistent car, sodium restricted diet if she is able to pass swallow evaluation Continue lactulose therapy currently ordered 4 times a day titrated for 3-4 bowel movements daily Continue to monitor clinically Ammonia level ordered for tomorrow as well as CMP and CBC Patient has a long-standing history of microcytic anemia as well as thrombocytopenia but clearly related to underlying comorbidities, there are no reports of GI bleeding at this time however hemoglobin is depressed and lower than baseline and anemia laboratory evaluation will be ordered Can consider addition of rifaximin if patient is not clinically improved by tomorrow Thank you for allowing us to participate in the care of the patient
[2020-01-24] MEDS ORDERED: ALBUTEROL NEBULIZED 2.5 MG/3 ML INHALATION PRN (13:11)
[2020-01-24] MEDS ORDERED: INFLUENZA VACCINE (6 MOS+) 60 MCG/0.5 ML SYRINGE IM ONE (13:12)
--- NOTE | 2020-01-24 13:25 | P.HPIM ---
History of Present Illness 74-year-old pleasant female was brought in because of significant confusion although there is no focal neurological deficits that were clearly appreciated patient was brought to ER with concerns of stroke and patient underwent stroke workup all of which is negative. Patient does have history of nonalcoholic liver disease and that does take Aldactone and Lasix at home. Patient is found to have highly elevated ammonia of 128. Because of which patient was started on lactulose. Patient also has mild acute renal failure because of which are temporally holding the diuretics at this time. Patient does have some bicytopenia from liver disease. Review of Systems REVIEW OF SYSTEMS: Unable to obtain due to her clinical condition patient all other review of systems is negative but not a reliable as patient is alert oriented 1 Past Medical History Past Medical History: Asthma, Heart Failure, COPD, Diabetes Mellitus, GERD/Reflux, Hypertension, Liver Disease, Osteoarthritis (OA), Supraventricular Tachycardia (SVT), Thyroid Disorder Additional Past Medical History / Comment(s): SEE CARDIOLOGY HISTORY PROVIDED BY DR. ELVIRA STRICKLAND. IP @ [facility] FROM [id number] FOR PULMONARY EDEMA, CHF, CELLULITIS. INCONTINENT/USES PADS. O2 AT HOME? DYSPHAGIA FROM GERD. hx migraines. LEFT "eye stroke". Hiatal hernia. NON ALCHOLIC CIRRHOSIS. History of Any Multi-Drug Resistant Organisms: None Reported Past Surgical History: Breast Surgery, Cholecystectomy, Hysterectomy Additional Past Surgical History / Comment(s): Rectocele. Breast biopsies. Ambrose fundoplication. Past Anesthesia/Blood Transfusion Reactions: Postoperative Nausea & Vomiting (PONV) Past Psychological History: Anxiety, Depression Smoking Status: Former smoker Past Alcohol Use History: None Reported Additional Past Alcohol Use History / Comment(s): quit smoking 1986, smoked for 25 yrs- < 1 PPD Past Drug Use History: None Reported - Past Family History Mother Family Medical History: Cancer Additional Family Medical History / Comment(s): lung Father Family Medical History: Cancer Additional Family Medical History / Comment(s): lung Brother(s) Family Medical History: Cancer, Liver Disease Additional Family Medical History / Comment(s): colon Medications and Allergies Home Medications Medication Instructions Recorded Confirmed Type ALPRAZolam [Xanax] 0.5 mg PO HS 02/28/15 01/24/20 History Calcium Carbonate/Vitamin D3 1 tab PO DAILY 02/28/15 01/24/20 History [Calcium 600-Vit D3 400 Tablet] Citalopram Hydrobromide [CeleXA] 20 mg PO HS 02/28/15 01/24/20 History Montelukast [Singulair] 10 mg PO HS 02/28/15 01/24/20 History Vitamin E (Dl,Tocopheryl Acet) 400 unit PO DAILY 11/17/15 01/24/20 History [Vitamin E] Albuterol Nebulized [Ventolin 2.5 mg INHALATION RT-Q6H PRN 10/22/19 01/24/20 History Nebulized] Ascorbic Acid [Vitamin C] 500 mg PO DAILY 10/22/19 01/24/20 History Cholecalciferol [Vitamin D3 (25 1,000 unit PO DAILY 10/22/19 01/24/20 History Mcg = 1000 Iu)] Lansoprazole [Prevacid] 30 mg PO QAM 10/22/19 01/24/20 History Levothyroxine Sodium [Euthyrox] 50 mcg PO QAM 10/22/19 01/24/20 History Potassium Chloride ER [K-Dur 20] 20 meq PO DAILY 10/22/19 01/24/20 History Pramipexole [Mirapex] 0.125 mg PO BID 10/22/19 01/24/20 History Salamol Inhal 1 puff INHALATION RT-DAILY PRN 10/22/19 01/24/20 History Spironolactone [Aldactone] 25 mg PO BID 10/22/19 01/24/20 History Apixaban [Eliquis] 5 mg PO BID 30 Days #60 tab 10/28/19 01/24/20 Rx Furosemide [Lasix] 40 mg PO HS 12/04/19 01/24/20 History Furosemide [Lasix] 60 mg PO QAM 12/04/19 01/24/20 History atenoloL [Atenolol] 100 mg PO QAM 12/04/19 01/24/20 History Atorvastatin [Lipitor] 20 mg PO HS 01/24/20 01/24/20 History Losartan [Cozaar] 25 mg PO DAILY 01/24/20 01/24/20 History Prednisolone Acetate/Pf 1 drop BOTH EYES BID 01/24/20 01/24/20 History [Prednisolone Acet 1% Eye Drop] Allergies Allergy/AdvReac Type Severity Reaction Status Date / Time adhesive tape Allergy blisters Verified 01/24/20 08:52 morphine Allergy Vomiting Verified 01/24/20 08:52 Penicillins Allergy numbness Verified 01/24/20 08:52 of lips, hands , feet prochlorperazine Allergy Unknown Verified 01/24/20 08:52 [From Compazine] prochlorperazine edisylate Allergy Unknown Verified 01/24/20 08:52 [From Compazine] prochlorperazine maleate Allergy Unknown Verified 01/24/20 08:52 [From Compazine] esomeprazole magnesium AdvReac Severe BURNING Verified 01/24/20 08:52 [From Nexium] PAIN fluticasone AdvReac Unknown Verified 01/24/20 08:52 [From Advair Diskus] salmeterol AdvReac Unknown Verified 01/24/20 08:52 [From Advair Diskus] Physical Exam Vitals: Vital Signs Temp Pulse Pulse Resp BP BP Pulse Ox 01/24/20 12:45 97.4 F L 78 18 117/54 96 01/24/20 10:09 98 F 79 16 149/57 100 01/24/20 08:58 78 16 149/53 100 01/24/20 08:04 98.2 F 78 20 143/59 96 Intake and Output 01/23/20 01/24/20 01/24/20 22:59 06:59 14:59 Other: # Bowel Movements 1 Weight 96.615 kg PHYSICAL EXAMINATION: GENERAL: The patient is alert and oriented x1, not in any acute distress. Well developed, well nourished. HEENT: Pupils are round and equally reacting to light. EOMI. No scleral icterus. No conjunctival pallor. Normocephalic, atraumatic. No pharyngeal erythema. No thyromegaly. CARDIOVASCULAR: S1 and S2 present. No murmurs, rubs, or gallops. PULMONARY: Chest is clear to auscultation, no wheezing or crackles. ABDOMEN: Soft, nontender, nondistended, normoactive bowel sounds. No palpable organomegaly. MUSCULOSKELETAL: No joint swelling or deformity. EXTREMITIES: No cyanosis, clubbing, or pedal edema. NEUROLOGICAL: Gross neurological examination did not reveal any focal deficits. SKIN: No rashes. Results CBC & Chem 7: 01/24/20 08:05 01/24/20 08:05 Labs: Abnormal Lab Results - Last 24 Hours (Table) 01/24/20 01/24/20 01/24/20 Range/Units 08:05 08:05 08:05 RBC 3.41 L (3.80-5.40) m/uL Hgb 7.6 L D (11.4-16.0) gm/dL Hct 25.8 L (34.0-46.0) % MCV 75.7 L (80.0-100.0) fL MCH 22.2 L (25.0-35.0) pg MCHC 29.4 L (31.0-37.0) g/dL RDW 16.2 H (11.5-15.5) % Plt Count 115 L (150-450) k/uL PT 13.3 H (9.0-12.0) sec INR 1.3 H (<1.2) Sodium 135 L (137-145) mmol/L BUN 31 H (7-17) mg/dL Creatinine 1.24 H (0.52-1.04) mg/dL Glucose 110 H (74-99) mg/dL POC Glucose (mg/dL) (75-99) mg/dL AST 44 H (14-36) U/L Alkaline Phosphatase 211 H (38-126) U/L Ammonia (<30) umol/L Total Protein 5.6 L (6.3-8.2) g/dL Albumin 3.0 L (3.5-5.0) g/dL 01/24/20 01/24/20 Range/Units 08:06 08:24 RBC (3.80-5.40) m/uL Hgb (11.4-16.0) gm/dL Hct (34.0-46.0) % MCV (80.0-100.0) fL MCH (25.0-35.0) pg MCHC (31.0-37.0) g/dL RDW (11.5-15.5) % Plt Count (150-450) k/uL PT (9.0-12.0) sec INR (<1.2) Sodium (137-145) mmol/L BUN (7-17) mg/dL Creatinine (0.52-1.04) mg/dL Glucose (74-99) mg/dL POC Glucose (mg/dL) 120 H (75-99) mg/dL AST (14-36) U/L Alkaline Phosphatase (38-126) U/L Ammonia 128 H (<30) umol/L Total Protein (6.3-8.2) g/dL Albumin (3.5-5.0) g/dL Assessment and Plan Plan: -Hepatic encephalopathy: Patient will be continued on lactulose. Patient was evaluated for stroke on the stroke workup is negative neurology was consulted from ER. 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 Without any acute exacerbation -Gastroesophageal reflux disease -Hypothyroidism -Hyperlipidemia -History of SVT in the past -depression - for above-mentioned chronic medical problems patient will be started on appropriate home medications -Possible history of atrial fibrillation for which patient on anticoagulation with the Eliquis which will continue
[2020-01-24] MEDS: PRAMIPEXOLE 0.125 MG TAB PO SCH ×2 (14:45→20:22)
[2020-01-24 17:07] LABS: Glucose,Whole Blood 166 mg/dL (75-99)
[2020-01-24 19:59] LABS: Glucose,Whole Blood 161 mg/dL (75-99)
[2020-01-24] MEDS: APIXABAN 5 MG TAB PO SCH (20:21)
[2020-01-24] MEDS: prednisoLONE ACETATE 1% OPHTH DROPS 5 ML BTL BOTH EYES SCH (20:22)
[2020-01-24] MEDS ORDERED: CITALOPRAM HYDROBROMIDE 20 MG TAB PO SCH (21:00)
[2020-01-24] MEDS ORDERED: ATORVASTATIN 20 MG TAB PO SCH (21:00)
[2020-01-24] MEDS ORDERED: PRAMIPEXOLE 0.125 MG TAB PO SCH (21:00)
[2020-01-25] MEDS: SODIUM CHLORIDE 0.9% 1,000 ML IV SCH (05:33)
[2020-01-25 06:18] LABS: Glucose,Whole Blood 124 mg/dL (75-99)
[2020-01-25] MEDS ORDERED: LEVOTHYROXINE 50 MCG TAB PO SCH (06:30)
[2020-01-25 07:14] LABS: Anisocytosis Slight; Basophils % (A) 0 %; Eosinophils # (A) 0.2 k/uL (0-0.7); Eosinophils % (A) 5 %; HCT 24.3 % (34.0-46.0); HGB 7.1 gm/dL (11.4-16.0); Hypochromasia Marked; Lymphocytes # (A) 1.1 k/uL (1.0-4.8); Lymphocytes % (A) 29 %; MCH 22.2 pg (25.0-35.0); MCHC 29.3 g/dL (31.0-37.0); Mean Platelet Volume 8.1; Microcytosis Slight; Monocytes # (A) 0.3 k/uL (0-1.0); Monocytes % (A) 7 %; Neutrophils # (A) 2.2 k/uL (1.3-7.7); Neutrophils % (A) 57 %; Platelet Count 105 k/uL (150-450); Poikilocytosis Slight; RBC 3.19 m/uL (3.80-5.40); RDW 16.1 % (11.5-15.5); Reticulocyte % 2.3 % (0.5-2.0); WBC 3.8 k/uL (3.8-10.6)
[2020-01-25 07:27] LABS: INR 1.3 (<1.2); Prothrombin Time 13.3 sec (9.0-12.0)
[2020-01-25] MEDS ORDERED: PANTOPRAZOLE 40 MG TABLET PO SCH (07:30)
[2020-01-25 07:49] LABS: Albumin 2.9 g/dL (3.5-5.0); Calcium 8.6 mg/dL (8.4-10.2); Potassium 4.9 mmol/L (3.5-5.1); Total Bilirubin 1.1 mg/dL (0.2-1.3); Total Protein 5.4 g/dL (6.3-8.2)
[2020-01-25] MEDS: ASPIRIN 81 MG PO SCH (08:19)
[2020-01-25] MEDS: APIXABAN 5 MG TAB PO SCH (08:19)
[2020-01-25] MEDS: prednisoLONE ACETATE 1% OPHTH DROPS 5 ML BTL BOTH EYES SCH (08:20)
[2020-01-25] MEDS: LACTULOSE 20 GM/30 ML CUP PO SCH ×2 (08:20→12:47)
[2020-01-25] MEDS: PRAMIPEXOLE 0.125 MG TAB PO SCH (08:20)
[2020-01-25] MEDS ORDERED: LORazepam 2 MG/ML INJ IV PRN (08:24)
[2020-01-25] MEDS ORDERED: LOSARTAN 25 MG TAB PO SCH (09:00)
[2020-01-25] MEDS ORDERED: VITAMIN E (DL,TOCOPHERYL ACET) 400 UNIT CAP PO SCH (09:00)
[2020-01-25] MEDS ORDERED: atenoloL 50 MG TAB PO SCH (09:00)
--- NOTE | 2020-01-25 10:36 | MR ---
MR brain without contrast HISTORY: Neuro deficit, stroke suspected Multiplanar multisequence imaging through the brain, fast brain recall utilized due to patient inabil ity to cooperate Correlation CT brain 01/24/2020 There is no restricted diffusion. Periventricular, subcortical, juxtacortical confluent and scattered hyperintensities are present on inversion recovery T2-weighted sequences. Cortical atrophy is likely age-related. There is no hemorrhage or hydrocephalus. Orbits show symmetric appearance. There are no rmal vascular flow voids. Cerebellopontine angles, corpus callosum, pituitary, cervical medullary elvira ction are within normal limits. Paranasal sinuses show some minimal mucoperiosteal thickening or infl ammatory change in the maxillary sinus, inflammatory change suspected in the mastoid air cells on the right. IMPRESSION: Age-related changes of atrophy and probable chronic small vessel ischemia. No evident sub acute infarct. Mild sinus disease. Mild inflammatory change mastoid air cells on the right.
[2020-01-25 11:27] LABS: % Iron Saturation 4.36 (12.00-45.00); Ferritin 19.2 ng/mL (10.0-291.0); Folate, Serum 11.5 ng/mL
[2020-01-25 12:01] LABS: Glucose,Whole Blood 110 mg/dL (75-99)
[2020-01-25 12:50] VITALS: BP 117/56; PULSE 68; RESP 16; TEMP 98.2
--- NOTE | 2020-01-25 13:49 | P.DS ---
Providers Date of admission: 01/24/20 08:55 Attending physician: Cari Jerez Consults: 01/24/20 08:55 Consult Physician Urgent Consulting Provider: Nancy Jacob Consult Reason/Comments: cva Do you want consulting provider notified?: Yes 01/24/20 09:16 Consult Physician Urgent Consulting Provider: Manuel Hodge Consult Reason/Comments: evaluate for hepatic Encephalopathy Do you want consulting provider notified?: Yes Primary care physician: [facility] Course: 74-year-old pleasant female was brought in because of significant confusion although there is no focal neurological deficits that were clearly appreciated patient was brought to ER with concerns of stroke and patient underwent stroke workup all of which is negative. Patient does have history of nonalcoholic liver disease and that does take Aldactone and Lasix at home. Patient is found to have highly elevated ammonia of 128. Because of which patient was started on lactulose. Patient also has mild acute renal failure because of which are temporally holding the diuretics at this time. Patient does have some bicytopenia from liver disease. 01/25/2020 Patient had medical supply of the which completely resolved at this time ammonia improved to around 40s and the patient is clinically doing well patient is alert oriented 3 will be discharged today after physical therapy and occupational therapy evaluation. Patient had an MRI which again show any acute abnormality. Patient was a will evaluated for stroke to although patient didn't have any stroke symptoms did have altered mental status secondary to hepatic encephalopathy. PHYSICAL EXAMINATION: GENERAL: The patient is alert and oriented x3, not in any acute distress. Well developed, well nourished. HEENT: Pupils are round and equally reacting to light. EOMI. No scleral icterus. No conjunctival pallor. Normocephalic, atraumatic. No pharyngeal erythema. No thyromegaly. CARDIOVASCULAR: S1 and S2 present. No murmurs, rubs, or gallops. PULMONARY: Chest is clear to auscultation, no wheezing or crackles. ABDOMEN: Soft, but distended, nondistended, normoactive bowel sounds. No palpable organomegaly. MUSCULOSKELETAL: No joint swelling or deformity. EXTREMITIES: No cyanosis, clubbing, or pedal edema. NEUROLOGICAL: Gross neurological examination did not reveal any focal deficits. SKIN: No rashes. Assessment and Plan Plan: -Hepatic encephalopathy: Patient will be continued on lactulose. 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 Without any acute exacerbation -Gastroesophageal reflux disease -Hypothyroidism -Hyperlipidemia -History of SVT in the past -depression - for above-mentioned chronic medical problems patient will be started on appropriate home medications -Possible history of atrial fibrillation for which patient on anticoagulation with the Eliquis which will continue Patient Condition at Discharge: Serious Plan - Discharge Summary Discharge Rx Participant: No New Discharge Prescriptions: New Lactulose [Cephulac] 30 gm PO TID #30 day Continue Montelukast [Singulair] 10 mg PO HS Citalopram Hydrobromide [CeleXA] 20 mg PO HS Calcium Carbonate/Vitamin D3 [Calcium 600-Vit D3 400 Tablet] 1 tab PO DAILY Vitamin E (Dl,Tocopheryl Acet) [Vitamin E] 400 unit PO DAILY Spironolactone [Aldactone] 25 mg PO BID Albuterol Nebulized [Ventolin Nebulized] 2.5 mg INHALATION RT-Q6H PRN PRN Reason: Shortness Of Breath Lansoprazole [Prevacid] 30 mg PO QAM Pramipexole [Mirapex] 0.125 mg PO BID Potassium Chloride ER [K-Dur 20] 20 meq PO DAILY Levothyroxine Sodium [Euthyrox] 50 mcg PO QAM Cholecalciferol [Vitamin D3 (25 Mcg = 1000 Iu)] 1,000 unit PO DAILY Ascorbic Acid [Vitamin C] 500 mg PO DAILY Salamol Inhal 1 puff INHALATION RT-DAILY PRN PRN Reason: Shortness Of Breath Apixaban [Eliquis] 5 mg PO BID 30 Days #60 tab atenoloL [Atenolol] 100 mg PO QAM Prednisolone Acetate/Pf [Prednisolone Acet 1% Eye Drop] 1 drop BOTH EYES BID Losartan [Cozaar] 25 mg PO DAILY Atorvastatin [Lipitor] 20 mg PO HS Changed Furosemide [Lasix] 40 mg PO BID #0 Discontinued ALPRAZolam [Xanax] 0.5 mg PO HS Furosemide [Lasix] 60 mg PO QAM Discharge Medication List Calcium Carbonate/Vitamin D3 [Calcium 600-Vit D3 400 Tablet] 1 tab PO DAILY 02/28/15 [History] Citalopram Hydrobromide [CeleXA] 20 mg PO HS 02/28/15 [History] Montelukast [Singulair] 10 mg PO HS 02/28/15 [History] Vitamin E (Dl,Tocopheryl Acet) [Vitamin E] 400 unit PO DAILY 11/17/15 [History] Albuterol Nebulized [Ventolin Nebulized] 2.5 mg INHALATION RT-Q6H PRN 10/22/19 [History] Ascorbic Acid [Vitamin C] 500 mg PO DAILY 10/22/19 [History] Cholecalciferol [Vitamin D3 (25 Mcg = 1000 Iu)] 1,000 unit PO DAILY 10/22/19 [History] Lansoprazole [Prevacid] 30 mg PO QAM 10/22/19 [History] Levothyroxine Sodium [Euthyrox] 50 mcg PO QAM 10/22/19 [History] Potassium Chloride ER [K-Dur 20] 20 meq PO DAILY 10/22/19 [History] Pramipexole [Mirapex] 0.125 mg PO BID 10/22/19 [History] Salamol Inhal 1 puff INHALATION RT-DAILY PRN 10/22/19 [History] Spironolactone [Aldactone] 25 mg PO BID 10/22/19 [History] Apixaban [Eliquis] 5 mg PO BID 30 Days #60 tab 10/28/19 [Rx] atenoloL [Atenolol] 100 mg PO QAM 12/04/19 [History] Atorvastatin [Lipitor] 20 mg PO HS 01/24/20 [History] Losartan [Cozaar] 25 mg PO DAILY 01/24/20 [History] Prednisolone Acetate/Pf [Prednisolone Acet 1% Eye Drop] 1 drop BOTH EYES BID 01/24/20 [History] Furosemide [Lasix] 40 mg PO BID #0 01/25/20 [Rx] Lactulose [Cephulac] 30 gm PO TID #30 day 01/25/20 [Rx] Follow up Appointment(s)/Referral(s): Nan Bro MD [Primary Care Provider] - 01/28/20 9:30 am Manuel Hodge MD [STAFF PHYSICIAN] - 1 Week Patient Instructions/Handouts: Acute Kidney Injury (DC), Hepatic Encephalopathy (DC) Discharge Disposition: HOME SELF-CARE
--- NOTE | 2020-01-25 14:03 | P.CNNES ---
History of Present Illness Consult date: 01/25/20 Requesting physician: Onesimo Gaitan Reason for Consult: Stroke for confusion History of Present Illness: This is a 74-year-old right-handed woman with medical history of atrial fibrillation, heart failure, diabetes mellitus, hypertension, superventricular tachycardia, asthma who presented to the emergency department on 01/24/2020 at 7:49 after found by family in the house confused. History obtained from . She was found in the bathroom and kept on telling her that she is going to bathroom even though she was in the bathroom. She did not know her . He denies patient had any urinary incontinence or bowel incontinence. No jerking episode. She does not have history of seizure. She was about to the ED via EMS and that she completed to them about a headache. EMS affect that the patient right arm was weak. Per primary team she had no focality on examination. She was only oriented to self. Upon presenting to the hospital she denied of any headaches. Unclear last normal state. Per he felt at night night prior to episode she was doing well. Patient does take Eliquis the last couple months for atrial fibrillation. No family history of seizure. Per after she received lactulose she improved and she is back to baseline. Patient does not recall episode. He believes her history is normal. Per she had history of nonalcholic cirrhosis and believes diagnosed 10 years ago. She does not consume alcohol. Not sure why she is on Vitamin E. Per patient she has been on it for couple years by her PCP and unsure why. She is not on antiplateletes but only on Eliquis. Workup in the hospital consisted of: Initial vital sign is blood pressure of 143/59 with a heart rate of 78, respiratory of 20, temperature of 98.2 Fahrenheit oral and the pulse ox of [address] of the head was reported as no acute intracranial hemorrhage or midline shift. There is mild to moderate diffuse age-related cerebral atrophy and chronic small vessel ischemic changes redemonstrated. No significant change from prior study. I personally reviewed the CT of the head and there is no acute ischemia, hemorrhage and no appreciable encephalomalacia noted. CT of the head and neck was reported as no significant stenosis in the common or internal carotid arteries bilaterally. No significant stenosis or aneurysm at the level [place]. EKG was reported as normal sinus rhythm. Ventricular rate of 78. Nonspecific ST abnormality. Abnormal EKG. Patient hemoglobin at presentation was 7.6 Ammonia level is 128. Review of Systems Review of system: The 12 point system was reviewed and apparent positive and negative per HPI. Past Medical History Past Medical History: Asthma, Heart Failure, COPD, Diabetes Mellitus, GERD/Reflux, Hypertension, Liver Disease, Osteoarthritis (OA), Supraventricular Tachycardia (SVT), Thyroid Disorder Additional Past Medical History / Comment(s): SEE CARDIOLOGY HISTORY PROVIDED BY DR. ELVIRA STRICKLAND. IP @ [facility] FROM [id number] FOR PULMONARY EDEMA, CHF, CELLULITIS. INCONTINENT/USES PADS. O2 AT HOME? DYSPHAGIA FROM GERD. hx migraines. LEFT "eye stroke". Hiatal hernia. NON ALCHOLIC CIRRHOSIS. History of Any Multi-Drug Resistant Organisms: None Reported Past Surgical History: Breast Surgery, Cholecystectomy, Hysterectomy Additional Past Surgical History / Comment(s): Rectocele. Breast biopsies. Ambrose fundoplication. Past Anesthesia/Blood Transfusion Reactions: Postoperative Nausea & Vomiting (PONV) Past Psychological History: Anxiety, Depression Smoking Status: Former smoker Past Alcohol Use History: None Reported Additional Past Alcohol Use History / Comment(s): quit smoking 1986, smoked for 25 yrs- < 1 PPD Past Drug Use History: None Reported - Past Family History Mother Family Medical History: Cancer Additional Family Medical History / Comment(s): lung Father Family Medical History: Cancer Additional Family Medical History / Comment(s): lung Brother(s) Family Medical History: Cancer, Liver Disease Additional Family Medical History / Comment(s): colon Medications and Allergies Home Medications Medication Instructions Recorded Confirmed Type Calcium Carbonate/Vitamin D3 1 tab PO DAILY 02/28/15 01/24/20 History [Calcium 600-Vit D3 400 Tablet] Citalopram Hydrobromide [CeleXA] 20 mg PO HS 02/28/15 01/24/20 History Montelukast [Singulair] 10 mg PO HS 02/28/15 01/24/20 History Vitamin E (Dl,Tocopheryl Acet) 400 unit PO DAILY 11/17/15 01/24/20 History [Vitamin E] Albuterol Nebulized [Ventolin 2.5 mg INHALATION RT-Q6H PRN 10/22/19 01/24/20 History Nebulized] Ascorbic Acid [Vitamin C] 500 mg PO DAILY 10/22/19 01/24/20 History Cholecalciferol [Vitamin D3 (25 1,000 unit PO DAILY 10/22/19 01/24/20 History Mcg = 1000 Iu)] Lansoprazole [Prevacid] 30 mg PO QAM 10/22/19 01/24/20 History Levothyroxine Sodium [Euthyrox] 50 mcg PO QAM 10/22/19 01/24/20 History Pramipexole [Mirapex] 0.125 mg PO BID 10/22/19 01/24/20 History Salamol Inhal 1 puff INHALATION RT-DAILY PRN 10/22/19 01/24/20 History Spironolactone [Aldactone] 25 mg PO BID 10/22/19 01/24/20 History Apixaban [Eliquis] 5 mg PO BID 30 Days #60 tab 10/28/19 01/24/20 Rx atenoloL [Atenolol] 100 mg PO QAM 12/04/19 01/24/20 History Atorvastatin [Lipitor] 20 mg PO HS 01/24/20 01/24/20 History Losartan [Cozaar] 25 mg PO DAILY 01/24/20 01/24/20 History Prednisolone Acetate/Pf 1 drop BOTH EYES BID 01/24/20 01/24/20 History [Prednisolone Acet 1% Eye Drop] Furosemide [Lasix] 40 mg PO BID #0 01/25/20 01/24/20 Rx Lactulose [Cephulac] 30 gm PO TID #30 day 01/25/20 Rx Potassium Chloride ER [K-Dur 20] 10 meq PO DAILY #0 01/25/20 01/24/20 Rx Allergies Allergy/AdvReac Type Severity Reaction Status Date / Time adhesive tape Allergy blisters Verified 01/24/20 08:52 morphine Allergy Vomiting Verified 01/24/20 08:52 Penicillins Allergy numbness Verified 01/24/20 08:52 of lips, hands , feet prochlorperazine Allergy Unknown Verified 01/24/20 08:52 [From Compazine] prochlorperazine edisylate Allergy Unknown Verified 01/24/20 08:52 [From Compazine] prochlorperazine maleate Allergy Unknown Verified 01/24/20 08:52 [From Compazine] esomeprazole magnesium AdvReac Severe BURNING Verified 01/24/20 08:52 [From Nexium] PAIN fluticasone AdvReac Unknown Verified 01/24/20 08:52 [From Advair Diskus] salmeterol AdvReac Unknown Verified 01/24/20 08:52 [From Advair Diskus] Physical Examination - Vital Signs Vital Signs: Vital Signs Temp Pulse Resp BP Pulse Ox 01/25/20 08:16 97.7 F 84 18 128/55 95 01/25/20 03:50 97.9 F 60 18 100/46 95 01/25/20 00:00 98.2 F 85 16 118/47 94 L 01/24/20 20:00 98.4 F 79 16 118/55 97 01/24/20 17:12 97 01/24/20 15:55 98.3 F 82 16 135/61 97 01/24/20 12:45 97.4 F L 78 18 117/54 96 Intake and Output 01/24/20 01/25/20 01/25/20 22:59 06:59 14:59 Intake Total 740 300 600 Output Total 160 Balance 740 140 600 Intake: Intake, IV Titration 500 Amount Sodium Chloride 0.9% 1, 500 000 ml @ 100 mls/hr IV . Q10H [facility] Rx#:[id number] Oral 240 300 600 Output: Urine 160 Other: Voiding Method Toilet Toilet Toilet # Voids 3 3 1 # Bowel Movements 3 3 Weight 92 kg GENERAL: The patient is lying in bed and is not in acute distress. CHEST: The heart rate is regular rate rhythm. No murmurs to auscultation. No carotid bruit bilaterally. LUNG: Clear to auscultation bilaterally no wheezing noted throughout. Not lab ored breathing. ABDOMEN/GI: Bowel sounds present in all 4 quadrants. No tenderness to palpation throughout. NEUROLOGICAL: Higher mental function: The patient is awake, alert, oriented to self, place and time. Patient is following commands. No aphasia and no neglect. Cranial nerves: The pupils are round, equal and reactive to light and accommodation. Visual soria are full to confrontation throughout. Extraocular movement is intact no nystagmus is noted. Facial sensation is normal to touch throughout. The facial strength is normal throughout. Hearing is normal bilaterally to hand rub. Tongue is midline and moved [id number] without any difficulty. No dysarthria is noted. Shoulder shrug is normal bilaterally. Motor: The strength is 5 over 5 throughout. Normal tone and bulk. Cerebellum: Normal finger to nose heel to chin bilaterally. Sensation: Sensation is normal to touch throughout. Reflexes (right/left): 2+ throughout except ankles 1+ bilaterally. Plantars are downgoing bilaterally. Results Coagulation study: PT of 13.3, INR 1.3, PTT of 26.2 AST of 44, ALTs of 20. Alkaline phosphatase of 211. Albumin is 3.0. - Laboratory Findings CBC and BMP: 01/25/20 06:55 01/25/20 06:55 Abnormal Lab Findings: Abnormal Labs 01/24/20 01/24/20 01/24/20 08:05 08:05 08:05 RBC 3.41 L Hgb 7.6 L D Hct 25.8 L MCV 75.7 L MCH 22.2 L MCHC 29.4 L RDW 16.2 H Plt Count 115 L Retic Count PT 13.3 H INR 1.3 H Sodium 135 L BUN 31 H Creatinine 1.24 H Glucose 110 H POC Glucose (mg/dL) Iron % Saturation Transferrin AST 44 H Alkaline Phosphatase 211 H Ammonia Total Protein 5.6 L Albumin 3.0 L 01/24/20 01/24/20 01/24/20 08:06 08:24 17:04 RBC Hgb Hct MCV MCH MCHC RDW Plt Count Retic Count PT INR Sodium BUN Creatinine Glucose POC Glucose (mg/dL) 120 H 166 H Iron % Saturation Transferrin AST Alkaline Phosphatase Ammonia 128 H Total Protein Albumin 01/24/20 01/25/20 01/25/20 19:58 06:17 06:55 RBC Hgb Hct MCV MCH MCHC RDW Plt Count Retic Count PT INR Sodium BUN Creatinine Glucose POC Glucose (mg/dL) 161 H 124 H Iron % Saturation Transferrin 369.0 H AST Alkaline Phosphatase Ammonia Total Protein Albumin 01/25/20 01/25/20 01/25/20 06:55 06:55 06:55 RBC 3.19 L Hgb 7.1 L Hct 24.3 L MCV 76.0 L MCH 22.2 L MCHC 29.3 L RDW 16.1 H Plt Count 105 L Retic Count PT 13.3 H INR 1.3 H Sodium 135 L BUN 23 H Creatinine Glucose 102 H POC Glucose (mg/dL) Iron 20 L % Saturation 4.36 L Transferrin AST 40 H Alkaline Phosphatase 135 H Ammonia Total Protein 5.4 L Albumin 2.9 L 01/25/20 01/25/20 01/25/20 06:55 06:55 11:59 RBC Hgb Hct MCV MCH MCHC RDW Plt Count Retic Count 2.3 H PT INR Sodium BUN Creatinine Glucose POC Glucose (mg/dL) 110 H Iron % Saturation Transferrin AST Alkaline Phosphatase Ammonia 34 H Total Protein Albumin Assessment and Plan Assessment: medical history of Nonalcoholic cirrhosis, atrial fibrillation, heart failure, diabetes mellitus, hypertension, superventricular tachycardia, asthma who presented to the emergency department on 01/24/2020 at 7:49 after found by in the house and was confused. She was about to the ED via EMS and that she completed to them about a headache. EMS affect that the patient right arm was weak. She was only oriented to self. Upon presenting to the hospital she denied of any headaches. Unclear last normal state. Patient does take L Aq uinas the last couple months for atrial fibrillation. Toxic metabolic encephalopathy (elevated ammonia and anemia) Hyperammonemia Nonalcohol cirrhosis (per for past 10 years) Anemia Atrial fibrillation on Eliquis Heart failure Diabetes Supraventricular tachycardia History of asthma Plan: MRI of the brain: Reported as age-related changes of atrophy and probable chronic small vessel ischemia. No evident subacute infarct. Mild sinus disease. Mild inflammatory change mastoid air cells on the right. I personally reviewed the MRI the brain and that there is no acute ischemia or hemorrhage as seen. Patient does have chronic small vessel disease. Patient is currently on Eliquis 5 mg twice a day (home med) and ASA 81 mg daily. From a neurology perspective the patient doesn't need on aspirin since she patient does not have acute stroke. Continue Lipitor 20 mg daily. Pending 2-D echo. Lipid panel is a triglyceride of 56, cholesterol 99, LDL 34 and HDL 54. For elevated ammonia patient is currently on lactulose. EEG is not warrented at this time, since not seizure and more likely toxic- metabolic encpehalopathy. I ordered that TSH, Patient hemoglobin A1c and August 2019 was normal so there is no reason to repeat it. Vitamin B12 is 740, folate is 11.5. Ordered vitamin E level. Thank you for the consultation. [facility]. Juan Miguel Reilly M.D. Neuro-hospitalist Time with Patient: Greater than 30
--- NOTE | 2020-01-25 15:36 | P.PN ---
Subjective Progress Note Date: 01/25/20 Principal diagnosis: Panic encephalopathy This is a 74-year-old female who presented to the hospital for confusion. She was started on lactulose yesterday, has had a reported 5 bowel movements yesterday and several through the night. Her ammonia level today is 34. She underwent an MRI of the brain this morning showed age-related changes of atrophy and probable chronic small vessel ischemia. No evident subacute infarct. Mild sinus disease. Mild inflammatory change mastoid air cells on the right. She is alert and oriented 3. She denies any acute changes through the night. Denies any abdominal pain, nausea, or vomiting. Objective - Vital Signs Vital signs: Vital Signs Temp 98.2 F 01/25/20 12:45 Pulse 68 01/25/20 12:45 Resp 16 01/25/20 12:45 BP 117/56 01/25/20 12:45 Pulse Ox 98 01/25/20 12:45 Intake & Output 01/24/20 01/25/20 01/25/20 18:59 06:59 18:59 Intake Total 858 300 840 Output Total 160 Balance 858 140 840 Weight 96.615 kg 92 kg Intake: Intake, IV Titration 500 Amount Sodium Chloride 0.9% 1, 500 000 ml @ 100 mls/hr IV . Q10H [facility] Rx#:[id number] Oral 358 300 840 Output: Urine 160 Other: Voiding Method Toilet Toilet # Voids 3 3 1 # Bowel Movements 3 3 - Exam General appearance: The patient is alert, oriented, in no acute distress. Obese. HET: Head is normocephalic and atraumatic. Conjunctiva pink. Sclera anicteric. Neck: Supple without lymphadenopathy. Abdomen: Soft, obese, nontender, nondistended with bowel sounds. No guarding or rigidity. Extremities: Normal skin color and turgor. No pedal edema Neurological: No focal deficits. Alert and oriented 3. - Labs CBC & Chem 7: 01/25/20 06:55 01/25/20 06:55 Labs: Abnormal Lab Results - Last 24 Hours (Table) 01/24/20 01/24/20 01/25/20 Range/Units 17:04 19:58 06:17 RBC (3.80-5.40) m/uL Hgb (11.4-16.0) gm/dL Hct (34.0-46.0) % MCV (80.0-100.0) fL MCH (25.0-35.0) pg MCHC (31.0-37.0) g/dL RDW (11.5-15.5) % Plt Count (150-450) k/uL Retic Count (0.5-2.0) % PT (9.0-12.0) sec INR (<1.2) Sodium (137-145) mmol/L BUN (7-17) mg/dL Glucose (74-99) mg/dL POC Glucose (mg/dL) 166 H 161 H 124 H (75-99) mg/dL Iron (50-170) ug/dL % Saturation (12.00-45.00) Transferrin (204.0-354.0) mg/dL AST (14-36) U/L Alkaline Phosphatase (38-126) U/L Ammonia (<30) umol/L Total Protein (6.3-8.2) g/dL Albumin (3.5-5.0) g/dL 01/25/20 01/25/20 01/25/20 Range/Units 06:55 06:55 06:55 RBC 3.19 L (3.80-5.40) m/uL Hgb 7.1 L (11.4-16.0) gm/dL Hct 24.3 L (34.0-46.0) % MCV 76.0 L (80.0-100.0) fL MCH 22.2 L (25.0-35.0) pg MCHC 29.3 L (31.0-37.0) g/dL RDW 16.1 H (11.5-15.5) % Plt Count 105 L (150-450) k/uL Retic Count (0.5-2.0) % PT (9.0-12.0) sec INR (<1.2) Sodium 135 L (137-145) mmol/L BUN 23 H (7-17) mg/dL Glucose 102 H (74-99) mg/dL POC Glucose (mg/dL) (75-99) mg/dL Iron 20 L (50-170) ug/dL % Saturation 4.36 L (12.00-45.00) Transferrin 369.0 H (204.0-354.0) mg/dL AST 40 H (14-36) U/L Alkaline Phosphatase 135 H (38-126) U/L Ammonia (<30) umol/L Total Protein 5.4 L (6.3-8.2) g/dL Albumin 2.9 L (3.5-5.0) g/dL 01/25/20 01/25/20 01/25/20 Range/Units 06:55 06:55 06:55 RBC (3.80-5.40) m/uL Hgb (11.4-16.0) gm/dL Hct (34.0-46.0) % MCV (80.0-100.0) fL MCH (25.0-35.0) pg MCHC (31.0-37.0) g/dL RDW (11.5-15.5) % Plt Count (150-450) k/uL Retic Count 2.3 H (0.5-2.0) % PT 13.3 H (9.0-12.0) sec INR 1.3 H (<1.2) Sodium (137-145) mmol/L BUN (7-17) mg/dL Glucose (74-99) mg/dL POC Glucose (mg/dL) (75-99) mg/dL Iron (50-170) ug/dL % Saturation (12.00-45.00) Transferrin (204.0-354.0) mg/dL AST (14-36) U/L Alkaline Phosphatase (38-126) U/L Ammonia 34 H (<30) umol/L Total Protein (6.3-8.2) g/dL Albumin (3.5-5.0) g/dL 01/25/20 Range/Units 11:59 RBC (3.80-5.40) m/uL Hgb (11.4-16.0) gm/dL Hct (34.0-46.0) % MCV (80.0-100.0) fL MCH (25.0-35.0) pg MCHC (31.0-37.0) g/dL RDW (11.5-15.5) % Plt Count (150-450) k/uL Retic Count (0.5-2.0) % PT (9.0-12.0) sec INR (<1.2) Sodium (137-145) mmol/L BUN (7-17) mg/dL Glucose (74-99) mg/dL POC Glucose (mg/dL) 110 H (75-99) mg/dL Iron (50-170) ug/dL % Saturation (12.00-45.00) Transferrin (204.0-354.0) mg/dL AST (14-36) U/L Alkaline Phosphatase (38-126) U/L Ammonia (<30) umol/L Total Protein (6.3-8.2) g/dL Albumin (3.5-5.0) g/dL Assessment and Plan (1) Hepatic encephalopathy Narrative/Plan: 74-year-old female with multiple medical comorbidities including a 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 As per the patient's patient was previously well compensated with no prior episodes of GI bleeding, encephalopathy or need for paracentesis, however the patient was recently admitted for fluid overload which was attributed to congestive heart failure. Patient was found to be confused at home and brought to the ER for further evaluation where she was found to have markedly elevated ammonia at 128, was decreased to 34 today. Patient is currently on the medical floor receiving lactulose therapy, had several bowel movements yesterday and through the night. Current Visit: Yes Status: Acute Code(s): K72.90 - HEPATIC FAILURE, UNSPECIFIED WITHOUT COMA SNOMED Code(s): 55849519 (2) Microcytic anemia Narrative/Plan: Patient with a known pancytopenia with depressed platelet count and a baseline hemoglobin of approximately 5. Hemoglobin lower than baseline at this time with the patient has been denying any signs or symptoms of GI bleeding. No prior episodes of variceal bleeding. Last EGD in 05/2016 with findings of gastritis. She previously underwent hiatal hernia repair. Current Visit: Yes Status: Acute Code(s): D50.9 - IRON DEFICIENCY ANEMIA, UNSPECIFIED SNOMED Code(s): 264234721 (3) Non-alcoholic cirrhosis Current Visit: Yes Status: Acute Code(s): K74.60 - UNSPECIFIED CIRRHOSIS OF LIVER SNOMED Code(s): 983623756 Plan: Supportive care Okay for consistent carb, sodium restricted diet if she is able to pass swallow evaluation Continue lactulose therapy currently ordered 4 times a day titrated for 3-4 bowel movements daily Continue to monitor clinically Repeat ammonia level Patient has a long-standing history of microcytic anemia as well as thrombocyto penia but clearly related to underlying comorbidities, there are no reports of GI bleeding at this time however hemoglobin is depressed and lower than baseline and anemia laboratory evaluation will be ordered Okay for discharge with follow-up with Dr. Hodge in outpatient setting The impression and plan of care has been dictated as directed. Dr. Suzanne Bassett I performed a history and examination of this patient, discussed the same with the dictator. I agree with the dictator's note ,documented as a scribe. Any additional findings or plans will be noted.
[2020-01-25 20:32] LABS: Folate, Serum 20.8 ng/mL
--- NOTE | 2020-01-27 12:04 | CDI ---
Documentation Clarification Form Date: 01/27/20 From: Xiao Garnett CCS Phone: If you have a question about this query, please contact Keke Bryan, Aircraft Line Assembler at [phone] between 8am and 5pm. Admit Date: 01/24/20 Discharge Date:01/25/20 Patient Name: Thais Gamboa Visit Number: [id number] ATTENTION: The Clinical Documentation Specialists (CDI) and [facility] Coding Staff appreciate your assistance in clarifying documentation. Please respond to the clarification below the line at the bottom and electronically sign. The CDI & [facility] Coding staff will review the response and follow-up if needed. Please note: Queries are made part of the Legal Health Record. If you have any questions, please contact the author of this message via ITS. Dear Dr. Jerez, CHF is documented in the ED, H&P, Consult. History/Risk Factors: HTN, DM, FISHMAN, Cirrhosis, Anemia, Hypothyroid Clinical Indicators: History CHF VS/Pulse OX: BP 143/59, RR 20, AL 78, O2 Sat 96 BNP: None Echocardiogram Results: 10/23/19- Left ventricular size is normal. Left ventricular wall thickness is normal. Overall left vetricular systolic function is low-normal with an EF between 50-55%. Mild mitral regurgitation, mild to moderate tricuspid regurgitation present. There is moderate pulmonary hypertension. Chest X Ray: Chronic changes and cardiomegaly without acute pulmonary process. Treatment: Lasix 40 mg PO HS, Lasix 60 mg PO QAM In your professional opinion, can you please clarify the acuity and type of CHF if known? Systolic Heart Failure: Acute Chronic Acute on Chronic Diastolic Heart Failure: Acute Chronic Acute on Chronic Systolic & Diastolic Heart Failure: Acute Chronic Acute on Chronic Heart Failure Unable to Determine Other, please specify No heart failure and heart failure was not dictated in my note MTDD
--- NOTE | 2020-01-27 12:18 | CDI ---
Documentation Clarification Form Date: 01/27/20 From: Xiao Garnett CCS Phone: If you have a question about this query, please contact Keke Bryan, Flue Cleaner at [phone] between 8am and 5pm. Admit Date: 01/24/20 Discharge Date:01/25/20 Patient Name: Thais Gamboa Visit Number: [id number] ATTENTION: The Clinical Documentation Specialists (CDI) and [facility] Coding Staff appreciate your assistance in clarifying documentation. Please respond to the clarification below the line at the bottom and electronically sign. The CDI & [facility] Coding staff will review the response and follow-up if needed. Please note: Queries are made part of the Legal Health Record. If you have any questions, please contact the author of this message via ITS. Dear Dr. Jerez, Atrial Fibrillation is documented in the ED, H&P, Consult, DS. History/Risk Factors: HTN, CHF, DM, Cirrhosis, Hypothyroid Clinical Indicators: AFIB EKG/telemetry: Normal sinus rhythm Treatment: Eliquis 5 mg PO BID In your professional opinion, can you please clarify the type of Atrial Fibrillation, if known? Chronic/Permanent Paroxysmal Persistent Other, please specify Unable to determine Unable to determine MTDD
== END 2020-01-25 16:08 | disposition home or self-care (01) | DRG 442 ==
LOC: EC 07:49 → 3SCARD 08:55
PROVIDERS: ADMIT Internal Medicine; ATTEND Internal Medicine
DX: K72.90 Hepatic failure, unspecified without coma (principal); N17.9 Acute kidney failure, unspecified; D61.818 Other pancytopenia; K75.81 Nonalcoholic steatohepatitis (NASH); K74.60 Unspecified cirrhosis of liver; J44.9 Chronic obstructive pulmonary disease, unspecified; I48.91 Unspecified atrial fibrillation; E11.9 Type 2 diabetes mellitus without complications; K21.9 Gastro-esophageal reflux disease without esophagitis; M19.90 Unspecified osteoarthritis, unspecified site; I10 Essential (primary) hypertension; E03.9 Hypothyroidism, unspecified; G43.909 Migraine, unspecified, not intractable, without status migrainosus; R13.10 Dysphagia, unspecified; F32.9 Major depressive disorder, single episode, unspecified; F41.9 Anxiety disorder, unspecified; D50.9 Iron deficiency anemia, unspecified; E78.5 Hyperlipidemia, unspecified; T50.1X5A Adverse effect of loop [high-ceiling] diuretics, initial encounter; Z23 Encounter for immunization; Z79.899 Other long term (current) drug therapy; Z79.01 Long term (current) use of anticoagulants; Z79.890 Hormone replacement therapy; Z98.890 Other specified postprocedural states; Z91.19 Patient's noncompliance with other medical treatment and regimen; Z90.49 Acquired absence of other specified parts of digestive tract; Z90.710 Acquired absence of both cervix and uterus; Z87.891 Personal history of nicotine dependence; Z98.49 Cataract extraction status, unspecified eye; Z88.5 Allergy status to narcotic agent; Z88.0 Allergy status to penicillin; Z88.8 Allergy status to other drugs, medicaments and biological substances; Z91.048 Other nonmedicinal substance allergy status; Z80.1 Family history of malignant neoplasm of trachea, bronchus and lung; Z80.0 Family history of malignant neoplasm of digestive organs; Z83.79 Family history of other diseases of the digestive system
CPT/HCPCS: 36415; 70450; 70496; 70498; 70551; 71045; 80053; 80061; 81003; 82140; 82607; 82728; 82746; 82747; 83540; 83550; 84443; 84466; 84484; 85025; 85045; 85610; 85730; 90686; 93005; 96361; 96374; 99291

== ENCOUNTER → 2020-02-10 | Outpatient (CLI) | payer MEDICARE ==
[2020-02-10 12:10] LABS: Anisocytosis Slight; Basophils % (A) 0 %; Eosinophils # (A) 0.2 k/uL (0-0.7); Eosinophils % (A) 4 %; HCT 24.9 % (34.0-46.0); HGB 7.5 gm/dL (11.4-16.0); Hypochromasia Marked; Lymphocytes # (A) 0.8 k/uL (1.0-4.8); Lymphocytes % (A) 23 %; MCH 22.4 pg (25.0-35.0); MCHC 30.2 g/dL (31.0-37.0); MCV 74.3 fL (80.0-100.0); Mean Platelet Volume 7.9; Microcytosis Slight; Monocytes # (A) 0.2 k/uL (0-1.0); Monocytes % (A) 6 %; Neutrophils # (A) 2.4 k/uL (1.3-7.7); Neutrophils % (A) 64 %; Platelet Count 106 k/uL (150-450); Poikilocytosis Slight; RBC 3.34 m/uL (3.80-5.40); RDW 16.4 % (11.5-15.5); WBC 3.7 k/uL (3.8-10.6)
[2020-02-10 20:43] LABS: African American GFR (CKD) 56.5 (60.0-200.0); Albumin 3.6 g/dL (3.80-4.90); Anion Gap 5.2 mmol/L (4.00-12.00); BUN/Creat Ratio 25.45 Ratio (12.00-20.00); Carbon Dioxide 24.8 mmol/L (21.6-31.8); Globulin 1.8 g/dL (1.6-3.3); Non-African American GFR(CKD) 48.7 (60.0-200.0); Potassium 4.4 mmol/L (3.5-5.5); Total Bilirubin 1.1 mg/dL (0.3-1.2); Total Protein 5.4 g/dL (6.2-8.2)
== END | disposition home or self-care (01) ==
LOC: LABWHC1 10:45
PROVIDERS: ATTEND Family Medicine
DX: D64.9 Anemia, unspecified (principal); E72.20 Disorder of urea cycle metabolism, unspecified; K72.90 Hepatic failure, unspecified without coma; N17.9 Acute kidney failure, unspecified
CPT/HCPCS: 36415; 72100; 72170; 80053; 82140; 85025; 99204

== ENCOUNTER 2020-02-11 18:44 | Emergency (ER) | payer MEDICARE ==
[2020-02-11 18:52] VITALS: RESP 18
--- NOTE | 2020-02-11 19:14 | ED ---
General Adult HPI - General Chief complaint: Recheck/Abnormal Lab/Rx Stated complaint: Abnormal labs Time Seen by Provider: 02/11/20 19:05 Source: patient, RN notes reviewed, old records reviewed Mode of arrival: ambulatory Limitations: no limitations - History of Present Illness Initial comments: 74-year-old female presenting for evaluation of abnormal outpatient lab. Patient was found to have a hemoglobin of 7.5 on outpatient lab testing. She does have a history of anemia. She denies bright red rectal bleeding denies any bleeding. Denies current melanotic stools. She states she's had intermittent melanotic stools in the past. She was recently admitted for elevated ammonia level and altered mental status. This resolved with treatment of lactulose. No fever. No cough. She does have some generalized weakness. - Related Data Home Medications Medication Instructions Recorded Confirmed Calcium Carbonate/Vitamin D3 1 tab PO DAILY 02/28/15 01/24/20 [Calcium 600-Vit D3 400 Tablet] Citalopram Hydrobromide [CeleXA] 20 mg PO HS 02/28/15 01/24/20 Montelukast [Singulair] 10 mg PO HS 02/28/15 01/24/20 Vitamin E (Dl,Tocopheryl Acet) 400 unit PO DAILY 11/17/15 01/24/20 [Vitamin E] Albuterol Nebulized [Ventolin 2.5 mg INHALATION RT-Q6H PRN 10/22/19 01/24/20 Nebulized] Ascorbic Acid [Vitamin C] 500 mg PO DAILY 10/22/19 01/24/20 Cholecalciferol [Vitamin D3 (25 1,000 unit PO DAILY 10/22/19 01/24/20 Mcg = 1000 Iu)] Lansoprazole [Prevacid] 30 mg PO QAM 10/22/19 01/24/20 Levothyroxine Sodium [Euthyrox] 50 mcg PO QAM 10/22/19 01/24/20 Pramipexole [Mirapex] 0.125 mg PO BID 10/22/19 01/24/20 Salamol Inhal 1 puff INHALATION RT-DAILY PRN 10/22/19 01/24/20 Spironolactone [Aldactone] 25 mg PO BID 10/22/19 01/24/20 atenoloL [Atenolol] 100 mg PO QAM 12/04/19 01/24/20 Atorvastatin [Lipitor] 20 mg PO HS 01/24/20 01/24/20 Losartan [Cozaar] 25 mg PO DAILY 01/24/20 01/24/20 Prednisolone Acetate/Pf 1 drop BOTH EYES BID 01/24/20 01/24/20 [Prednisolone Acet 1% Eye Drop] Previous Rx's Medication Instructions Recorded Apixaban [Eliquis] 5 mg PO BID 30 Days #60 tab 10/28/19 Furosemide [Lasix] 40 mg PO BID #0 01/25/20 Lactulose [Cephulac] 30 gm PO TID #30 day 01/25/20 Potassium Chloride ER [K-Dur 20] 10 meq PO DAILY #0 01/25/20 Allergies Allergy/AdvReac Type Severity Reaction Status Date / Time adhesive tape Allergy blisters Verified 02/11/20 18:52 morphine Allergy Vomiting Verified 02/11/20 18:52 Penicillins Allergy numbness Verified 02/11/20 18:52 of lips, hands , feet prochlorperazine Allergy Unknown Verified 02/11/20 18:52 [From Compazine] prochlorperazine edisylate Allergy Unknown Verified 02/11/20 18:52 [From Compazine] prochlorperazine maleate Allergy Unknown Verified 02/11/20 18:52 [From Compazine] esomeprazole magnesium AdvReac Severe BURNING Verified 02/11/20 18:52 [From Nexium] PAIN fluticasone AdvReac Unknown Verified 02/11/20 18:52 [From Advair Diskus] salmeterol AdvReac Unknown Verified 02/11/20 18:52 [From Advair Diskus] Review of Systems ROS Statement: Those systems with pertinent positive or pertinent negative responses have been documented in the HPI. ROS Other: All systems not noted in ROS Statement are negative. Past Medical History Past Medical History: Asthma, Heart Failure, COPD, Diabetes Mellitus, GERD/Reflux, Hypertension, Liver Disease, Osteoarthritis (OA), Supraventricular Tachycardia (SVT), Thyroid Disorder Additional Past Medical History / Comment(s): SEE CARDIOLOGY HISTORY PROVIDED BY DR. ELVIRA STRICKLAND. IP @ [facility] FROM [id number] FOR PULMONARY EDEMA, CHF, CELLULITIS. INCONTINENT/USES PADS. O2 AT HOME? DYSPHAGIA FROM GERD. hx migraines. LEFT "eye stroke". Hiatal hernia. NON ALCHOLIC CIRRHOSIS. History of Any Multi-Drug Resistant Organisms: None Reported Past Surgical History: Breast Surgery, Cholecystectomy, Hysterectomy Additional Past Surgical History / Comment(s): Rectocele. Breast biopsies. Ambrose fundoplication. Past Anesthesia/Blood Transfusion Reactions: Postoperative Nausea & Vomiting (PONV) Past Psychological History: Anxiety, Depression Smoking Status: Former smoker Past Alcohol Use History: None Reported Past Drug Use History: None Reported - Past Family History Mother Family Medical History: Cancer Additional Family Medical History / Comment(s): lung Father Family Medical History: Cancer Additional Family Medical History / Comment(s): lung Brother(s) Family Medical History: Cancer, Liver Disease Additional Family Medical History / Comment(s): colon General Exam Limitations: no limitations General appearance: alert, in no apparent distress Head exam: Present: atraumatic, normocephalic Eye exam: Present: normal appearance, PERRL ENT exam: Present: normal exam Neck exam: Present: normal inspection. Absent: tenderness, meningismus Respiratory exam: Present: normal lung sounds bilaterally. Absent: respiratory distress, wheezes Cardiovascular Exam: Present: regular rate, normal rhythm GI/Abdominal exam: Present: soft. Absent: distended, tenderness Rectal exam: Present: normal inspection, normal rectal tone. Absent: black stool, bloody stool Extremities exam: Present: normal inspection, normal capillary refill. Absent: pedal edema Neurological exam: Present: alert, oriented X3, CN II-XII intact. Absent: motor sensory deficit Psychiatric exam: Present: normal affect, normal mood Skin exam: Present: warm, pallor Course Vital Signs 02/11/20 18:48 Temperature 98.4 F Pulse Rate 72 Respiratory 18 Rate Blood Pressure 117/51 O2 Sat by Pulse 100 Oximetry Medical Decision Making - Medical Decision Making 74 yo female with anemia on outpatient lab testing. Hemoglobin is stable 7.8, no signs of active bleeding. Patient has Hemoccult which is negative. There is no melena or bright red rectal blood. Her other laboratory testing or stable. She did just start iron supplementation. Patient will continue to follow with her primary care physician. She will return with any worsening symptoms, or bleeding concerns. - Lab Data Result diagrams: 02/11/20 19:25 02/11/20 19:25 Lab Results 02/11/20 02/11/20 02/11/20 Range/Units 19:25 19:25 19:25 WBC 4.5 (3.8-10.6) k/uL RBC 3.54 L (3.80-5.40) m/uL Hgb 7.8 L (11.4-16.0) gm/dL Hct 25.9 L (34.0-46.0) % MCV 73.2 L (80.0-100.0) fL MCH 22.0 L (25.0-35.0) pg MCHC 30.1 L (31.0-37.0) g/dL RDW 16.3 H (11.5-15.5) % Plt Count 112 L (150-450) k/uL MPV 7.7 Neutrophils % 66 % Lymphocytes % 23 % Monocytes % 6 % Eosinophils % 4 % Basophils % 0 % Neutrophils # 2.9 (1.3-7.7) k/uL Lymphocytes # 1.0 (1.0-4.8) k/uL Monocytes # 0.2 (0-1.0) k/uL Eosinophils # 0.2 (0-0.7) k/uL Basophils # 0.0 (0-0.2) k/uL Hypochromasia Marked Poikilocytosis Slight Anisocytosis Slight Microcytosis Moderate PT 13.3 H (9.0-12.0) sec INR 1.3 H (<1.2) APTT 25.6 (22.0-30.0) sec Sodium (137-145) mmol/L Potassium (3.5-5.1) mmol/L Chloride (98-107) mmol/L Carbon Dioxide (22-30) mmol/L Anion Gap mmol/L BUN (7-17) mg/dL Creatinine (0.52-1.04) mg/dL Est GFR (CKD-EPI)AfAm (>60 ml/min/1.73 sqM) Est GFR (CKD-EPI)NonAf (>60 ml/min/1.73 sqM) Glucose (74-99) mg/dL Calcium (8.4-10.2) mg/dL Magnesium (1.6-2.3) mg/dL Total Bilirubin (0.2-1.3) mg/dL AST (14-36) U/L ALT (4-34) U/L Alkaline Phosphatase (38-126) U/L Ammonia (<30) umol/L Total Protein (6.3-8.2) g/dL Albumin (3.5-5.0) g/dL Stool Occult Blood Negative (Negative) 02/11/20 02/11/20 Range/Units 19:25 19:25 WBC (3.8-10.6) k/uL RBC (3.80-5.40) m/uL Hgb (11.4-16.0) gm/dL Hct (34.0-46.0) % MCV (80.0-100.0) fL MCH (25.0-35.0) pg MCHC (31.0-37.0) g/dL RDW (11.5-15.5) % Plt Count (150-450) k/uL MPV Neutrophils % % Lymphocytes % % Monocytes % % Eosinophils % % Basophils % % Neutrophils # (1.3-7.7) k/uL Lymphocytes # (1.0-4.8) k/uL Monocytes # (0-1.0) k/uL Eosinophils # (0-0.7) k/uL Basophils # (0-0.2) k/uL Hypochromasia Poikilocytosis Anisocytosis Microcytosis PT (9.0-12.0) sec INR (<1.2) APTT (22.0-30.0) sec Sodium 134 L (137-145) mmol/L Potassium 4.9 (3.5-5.1) mmol/L Chloride 104 (98-107) mmol/L Carbon Dioxide 25 (22-30) mmol/L Anion Gap 5 mmol/L BUN 26 H (7-17) mg/dL Creatinine 1.12 H (0.52-1.04) mg/dL Est GFR (CKD-EPI)AfAm 55 (>60 ml/min/1.73 sqM) Est GFR (CKD-EPI)NonAf 48 (>60 ml/min/1.73 sqM) Glucose 151 H (74-99) mg/dL Calcium 8.8 (8.4-10.2) mg/dL Magnesium 2.0 (1.6-2.3) mg/dL Total Bilirubin 1.1 (0.2-1.3) mg/dL AST 41 H (14-36) U/L ALT 20 (4-34) U/L Alkaline Phosphatase 138 H (38-126) U/L Ammonia 29 (<30) umol/L Total Protein 5.9 L (6.3-8.2) g/dL Albumin 3.2 L (3.5-5.0) g/dL Stool Occult Blood (Negative) Disposition Clinical Impression: Anemia Disposition: HOME SELF-CARE Condition: Fair Instructions (If sedation given, give patient instructions): Anemia (ED) Is patient prescribed a controlled substance at d/c from ED?: No Referrals: Nan Bro MD [Primary Care Provider] - 1-2 days Time of Disposition: 20:14
[2020-02-11 19:45] LABS: Anisocytosis Slight; Basophils % (A) 0 %; Eosinophils # (A) 0.2 k/uL (0-0.7); Eosinophils % (A) 4 %; HCT 25.9 % (34.0-46.0); HGB 7.8 gm/dL (11.4-16.0); Hypochromasia Marked; Lymphocytes % (A) 23 %; MCHC 30.1 g/dL (31.0-37.0); MCV 73.2 fL (80.0-100.0); Mean Platelet Volume 7.7; Microcytosis Moderate; Monocytes # (A) 0.2 k/uL (0-1.0); Monocytes % (A) 6 %; Neutrophils # (A) 2.9 k/uL (1.3-7.7); Neutrophils % (A) 66 %; Platelet Count 112 k/uL (150-450); Poikilocytosis Slight; RBC 3.54 m/uL (3.80-5.40); RDW 16.3 % (11.5-15.5); WBC 4.5 k/uL (3.8-10.6)
[2020-02-11 19:54] LABS: INR 1.3 (<1.2); Partial Thromboplastin Time 25.6 sec (22.0-30.0); Prothrombin Time 13.3 sec (9.0-12.0)
[2020-02-11 19:55] LABS: Albumin 3.2 g/dL (3.5-5.0); Calcium 8.8 mg/dL (8.4-10.2); Potassium 4.9 mmol/L (3.5-5.1); Total Bilirubin 1.1 mg/dL (0.2-1.3); Total Protein 5.9 g/dL (6.3-8.2)
[2020-02-11 20:46] VITALS: BP 115/46; PULSE 79; TEMP 97.9
== END 2020-02-11 20:40 | disposition home or self-care (01) ==
LOC: EC 18:44
DX: D64.9 Anemia, unspecified (principal); I11.0 Hypertensive heart disease with heart failure; I50.9 Heart failure, unspecified; J44.9 Chronic obstructive pulmonary disease, unspecified; K21.9 Gastro-esophageal reflux disease without esophagitis; I47.1 Supraventricular tachycardia; E07.9 Disorder of thyroid, unspecified; F41.9 Anxiety disorder, unspecified; F32.9 Major depressive disorder, single episode, unspecified; Z79.899 Other long term (current) drug therapy; Z79.890 Hormone replacement therapy; Z91.048 Other nonmedicinal substance allergy status; Z88.5 Allergy status to narcotic agent; Z88.0 Allergy status to penicillin; Z88.8 Allergy status to other drugs, medicaments and biological substances; Z87.891 Personal history of nicotine dependence
CPT/HCPCS: 36415; 80053; 82140; 82272; 83735; 85025; 85610; 85730; 86850; 86900; 86901; 99283

== ENCOUNTER → 2020-02-17 | Outpatient (CLI) | payer MEDICARE ==
--- NOTE | 2020-02-17 11:37 | MM ---
Reason for exam: follow-up at short interval from prior study. Last mammogram was performed 8 months ago. History: Patient is postmenopausal. Family history of breast cancer in maternal aunt and breast cancer in maternal cousin. Benign MG stereo VAD BX LT of the left breast, August 12, 2019. Benign right mammotome panel of the right breast, March 07, 2012. Benign stereotactic core biopsy of the left breast, October 21, 2003. Benign excisional biopsy of the right breast, October 05, 1999. Excisional biopsy of the left breast, 1977. Core biopsy of the left breast. Took estrogen for 10 years. Took progesterone for 10 years. Physical Findings: Nurse did not find any significant physical abnormalities on exam. MG 3D Diag Mammo W/Cad LT CC and MLO view(s) were taken of the left breast. Prior study comparison: June 10, 2019, bilateral MG 3d work up w/cad ADELITA. June 08, 2019, bilateral MG 3d screening mammo w/cad. The breast tissue is heterogeneously dense. This may lower the sensitivity of mammography. Stable benign calcifications. Previous mammotome biopsy in the left breast. There is no discrete abnormality. No significant new findings when compared with previous films. These results were verbally communicated with the patient and result sheet given to the patient on 02/17/20. ASSESSMENT: Benign, BI-RAD 2 RECOMMENDATION: Return to routine screening mammogram schedule for both breasts. Back on schedule for May 2020.
== END | disposition home or self-care (01) ==
LOC: RADMAMWWP 10:50
PROVIDERS: ATTEND Surgery
DX: R92.8 Other abnormal and inconclusive findings on diagnostic imaging of breast (principal)
CPT/HCPCS: 77065; G0279; 77061

== ENCOUNTER → 2020-03-16 | Outpatient (CLI) | payer MEDICARE ==
--- NOTE | 2020-03-16 09:31 | US ---
EXAMINATION TYPE: US abdomen limited DATE OF EXAM: 03/16/2020 COMPARISON: NONE CLINICAL HISTORY: D64.9 Anemia, K74.60Unspecified cirrhosis of liver. known cirrhosis, abd pain, cho lecystectomy EXAM MEASUREMENTS: Liver Length: 14.1 cm Gallbladder Wall: Surgically absent CBD: 0.6 cm Right Kidney: 9.6 x 4.3 x 4.3 cm Pancreas: wnl Liver: intercostal imaging due to bowel gas appears wnl Gallbladder: Surgically absent Evidence for sonographic Zhao's sign: no CBD: wnl Right Kidney: limited views appear wnl IMPRESSION: No distinct abnormality seen.
[2020-03-16 10:08] LABS: Albumin 3.2 g/dL (3.5-5.0); Calcium 8.5 mg/dL (8.4-10.2); Potassium 4.4 mmol/L (3.5-5.1); Total Bilirubin 1.2 mg/dL (0.2-1.3); Total Protein 5.6 g/dL (6.3-8.2)
[2020-03-16 10:25] LABS: Anisocytosis Marked; Basophils % (A) 1 %; Eosinophils # (A) 0.2 k/uL (0-0.7); Eosinophils % (A) 4 %; HCT 34.5 % (34.0-46.0); HGB 10.8 gm/dL (11.4-16.0); Hypochromasia Slight; Lymphocytes # (A) 1.1 k/uL (1.0-4.8); Lymphocytes % (A) 28 %; MCH 27.3 pg (25.0-35.0); MCHC 31.4 g/dL (31.0-37.0); MCV 86.9 fL (80.0-100.0); Mean Platelet Volume 7.5; Microcytosis Slight; Monocytes # (A) 0.2 k/uL (0-1.0); Monocytes % (A) 6 %; Neutrophils # (A) 2.3 k/uL (1.3-7.7); Neutrophils % (A) 59 %; RBC 3.97 m/uL (3.80-5.40); RDW 25.7 % (11.5-15.5); WBC 3.9 k/uL (3.8-10.6)
[2020-03-16 11:10] LABS: Platelet Count 86 k/uL (150-450); Poikilocytosis (M) Present
[2020-03-16 11:11] LABS: Mixed Population RBC Present
[2020-03-16 15:38] LABS: % Iron Saturation 38.3 (12.00-45.00)
[2020-03-16 15:39] LABS: Ferritin 57.5 ng/mL (10.0-291.0)
[2020-03-16 17:09] LABS: Hemoglobin A1C 4.9 % (4.0-6.0)
== END | disposition home or self-care (01) ==
LOC: RADUSWWP 08:49
PROVIDERS: ATTEND Family Medicine
DX: K74.60 Unspecified cirrhosis of liver (principal); D64.9 Anemia, unspecified; E11.9 Type 2 diabetes mellitus without complications; R60.9 Edema, unspecified
CPT/HCPCS: 76705; 80053; 82728; 83036; 83540; 83550; 85025

== ENCOUNTER → 2020-05-19 | Outpatient (CLI) | payer MEDICARE | END | disposition home or self-care (01) | LOC: LABWHC1 10:20 | PROVIDERS: ATTEND Family Medicine | DX: R79.9 Abnormal finding of blood chemistry, unspecified (principal) | CPT/HCPCS: 36415; 82140 ==

== ENCOUNTER → 2020-06-24 | Outpatient (CLI) | payer MEDICARE ==
--- NOTE | 2020-06-27 10:22 | MM ---
Reason for exam: screening (asymptomatic). Last mammogram was performed 4 months ago. History: Patient is postmenopausal. Family history of breast cancer in maternal aunt and breast cancer in maternal cousin. Benign MG stereo VAD BX LT of the left breast, August 12, 2019. Benign right mammotome panel of the right breast, March 07, 2012. Benign stereotactic core biopsy of the left breast, October 21, 2003. Benign excisional biopsy of the right breast, October 05, 1999. Excisional biopsy of the left breast, 1977. Core biopsy of the left breast. Took hormonal contraceptives for 10 years. Took estrogen for 10 years. Took progesterone for 10 years. Physical Findings: A clinical breast exam by your physician is recommended on an annual basis and results should be correlated with mammographic findings. MG 3D Screening Mammo W/Cad Bilateral CC and MLO view(s) were taken. Prior study comparison: February 17, 2020, left breast MG 3d diag mammo w/cad LT. June 10, 2019, bilateral MG 3d work up w/cad ADELITA. The breast tissue is heterogeneously dense. This may lower the sensitivity of mammography. Stable benign calcifications. There is no discrete abnormality. No significant changes when compared with prior studies. ASSESSMENT: Benign, BI-RAD 2 RECOMMENDATION: Routine screening mammogram of both breasts in 1 year.
== END | disposition home or self-care (01) ==
LOC: RADMAMWWP 09:58
PROVIDERS: ATTEND Family Medicine
DX: Z12.31 Encounter for screening mammogram for malignant neoplasm of breast (principal); Z78.0 Asymptomatic menopausal state; Z80.3 Family history of malignant neoplasm of breast
CPT/HCPCS: 77063; 77067

== ENCOUNTER → 2020-07-04 | Outpatient (CLI) | payer MEDICARE ==
[2020-07-04 13:44] LABS: Basophils % (A) 1 %; Eosinophils # (A) 0.3 k/uL (0-0.7); Eosinophils % (A) 5 %; HCT 36.6 % (34.0-46.0); Lymphocytes # (A) 0.8 k/uL (1.0-4.8); Lymphocytes % (A) 15 %; MCH 36.5 pg (25.0-35.0); MCHC 35.6 g/dL (31.0-37.0); MCV 102.7 fL (80.0-100.0); Macrocytosis Slight; Mean Platelet Volume 7.9; Monocytes # (A) 0.2 k/uL (0-1.0); Monocytes % (A) 5 %; Neutrophils # (A) 3.6 k/uL (1.3-7.7); Neutrophils % (A) 73 %; RBC 3.57 m/uL (3.80-5.40); RDW 13.4 % (11.5-15.5)
[2020-07-04 14:02] LABS: ALT 30 U/L (4-34); AST 64 U/L (14-36); African American GFR (CKD) 54 (>60 ml/min/1.73 sqM); Albumin 3.4 g/dL (3.5-5.0); Albumin/Globulin Ratio 1.4; Alkaline Phosphatase 136 U/L (38-126); Anion Gap 3 mmol/L; Blood Urea Nitrogen 30 mg/dL (7-17); Calcium 9.2 mg/dL (8.4-10.2); Carbon Dioxide 30 mmol/L (22-30); Chloride 103 mmol/L (98-107); Globulin 2.4 g/dL; Glucose 145 mg/dL (74-99); Non-African American GFR(CKD) 47 (>60 ml/min/1.73 sqM); Potassium 4.7 mmol/L (3.5-5.1); Sodium 136 mmol/L (137-145); Total Bilirubin 1.7 mg/dL (0.2-1.3); Total Protein 5.8 g/dL (6.3-8.2)
[2020-07-04 14:41] LABS: Platelet Count 77 k/uL (150-450)
== END | disposition home or self-care (01) ==
LOC: LABWHC1 12:27
PROVIDERS: ATTEND Family Medicine
DX: D64.9 Anemia, unspecified (principal); E72.20 Disorder of urea cycle metabolism, unspecified; K74.60 Unspecified cirrhosis of liver; R41.0 Disorientation, unspecified
CPT/HCPCS: 36415; 80053; 82140; 85025

== ENCOUNTER → 2020-07-07 | Outpatient (CLI) | payer MEDICARE ==
[2020-07-07 22:22] LABS: African American GFR (CKD) 41.9 (60.0-200.0); Albumin 3.8 g/dL (3.80-4.90); Albumin/Globulin Ratio 1.9 (1.60-3.17); BUN/Creat Ratio 27.14 Ratio (12.00-20.00); Basophils # (A) 0.02 X 10*3/uL (0.00-0.10); Basophils % (A) 0.4 %; Calcium 9.4 mg/dL (8.7-10.3); Eosinophils # (A) 0.26 X 10*3/uL (0.04-0.35); Eosinophils % (A) 5.6 %; HCT 36.1 % (37.2-46.3); HGB 11.9 g/dL (12.0-15.0); Lymphocytes # (A) 0.93 X 10*3/uL (0.90-5.00); MCH 34.9 pg (27.0-32.0); MCV 105.9 fL (80.0-97.0); Mean Platelet Volume 11.3 fL (9.5-12.2); Monocytes % (A) 8.6 %; Neutrophils # (A) 3.02 X 10*3/uL (1.80-7.70); Non-African American GFR(CKD) 36.2 (60.0-200.0); Platelet Count 85 X 10*3/uL (140-440); Potassium 4.9 mmol/L (3.5-5.5); RBC 3.41 X 10*6/uL (4.10-5.20); RDW 14.1 % (11.5-14.5); Total Bilirubin 1.9 mg/dL (0.3-1.2); Total Protein 5.8 g/dL (6.2-8.2); WBC 4.65 X 10*3/uL (4.50-10.00)
[2020-07-07 22:23] LABS: Crenated RBC 2+
== END | disposition home or self-care (01) ==
LOC: LABWHC1 11:39
PROVIDERS: ATTEND Family Medicine
DX: K74.60 Unspecified cirrhosis of liver (principal); D64.9 Anemia, unspecified; R60.9 Edema, unspecified; E44.1 Mild protein-calorie malnutrition
CPT/HCPCS: 36415; 80053; 82140; 85025

== ENCOUNTER → 2021-06-26 | Outpatient (CLI) | payer MEDICARE ==
--- NOTE | 2021-06-27 12:52 | MM ---
Reason for exam: screening (asymptomatic). Last mammogram was performed 1 year ago. History: Patient is postmenopausal. Family history of breast cancer in maternal aunt and breast cancer in maternal cousin. Benign MG stereo VAD BX LT of the left breast, August 12, 2019. Benign right mammotome panel of the right breast, March 07, 2012. Benign stereotactic core biopsy of the left breast, October 21, 2003. Benign excisional biopsy of the right breast, October 05, 1999. Excisional biopsy of the left breast, 1977. Core biopsy of the left breast. Took hormonal contraceptives for 10 years. Took estrogen for 10 years. Took progesterone for 10 years. Physical Findings: A clinical breast exam by your physician is recommended on an annual basis and results should be correlated with mammographic findings. MG 3D Screening Mammo W/Cad Bilateral CC and MLO view(s) were taken. Prior study comparison: June 24, 2020, bilateral MG 3d screening mammo w/cad. February 17, 2020, left breast MG 3d diag mammo w/cad LT. June 08, 2019, bilateral MG 3d screening mammo w/cad. June 04, 2018, bilateral MG 3d screening mammo w/cad. The breast tissue is heterogeneously dense. This may lower the sensitivity of mammography. Previous mammotome biopsy in the right breast x 2 and the left breast x 2. Increasing grouped calcifications posterior right breast 8-9 o'clock, magnification views recommended. ASSESSMENT: Incomplete: need additional imaging evaluation, BI-RAD 0 RECOMMENDATION: Special view mammogram of the right breast. (magnification) [facility] will attempt to contact patient to return for supplemental views.
== END | disposition home or self-care (01) ==
LOC: RADMAMWWP 10:46
PROVIDERS: ATTEND Family Medicine
DX: Z12.31 Encounter for screening mammogram for malignant neoplasm of breast (principal); Z78.0 Asymptomatic menopausal state; Z80.3 Family history of malignant neoplasm of breast
CPT/HCPCS: 77063; 77067

== ENCOUNTER → 2021-06-30 | Outpatient (CLI) | payer MEDICARE ==
--- NOTE | 2021-06-30 10:38 | MM ---
Reason for exam: additional evaluation requested from abnormal screening. Last mammogram was performed less than 1 month ago. History: Patient is postmenopausal. Family history of breast cancer in maternal aunt and breast cancer in maternal cousin. Benign MG stereo VAD BX LT of the left breast, August 12, 2019. Benign right mammotome panel of the right breast, March 07, 2012. Benign stereotactic core biopsy of the left breast, October 21, 2003. Benign excisional biopsy of the right breast, October 05, 1999. Excisional biopsy of the left breast, 1977. Core biopsy of the left breast. Took hormonal contraceptives for 10 years. Took estrogen for 10 years. Took progesterone for 10 years. Physical Findings: A clinical breast exam by your physician is recommended on an annual basis and results should be correlated with mammographic findings. MG 3D Work Up W/Cad RT CC with magnification, LM with magnification, and LM view(s) were taken of the right breast. Prior study comparison: June 26, 2021, bilateral MG 3d screening mammo w/cad. June 24, 2020, bilateral MG 3d screening mammo w/cad. The breast tissue is heterogeneously dense. This may lower the sensitivity of mammography. Finding: There are 3-4 heterogeneous, grouped/clustered calcifications in the 9 o'clock outer quadrant, posterior position of the right breast. New finding since June 24, 2020. ASSESSMENT: Probably benign, BI-RAD 3 RECOMMENDATION: Follow-up diagnostic mammogram of the right breast in 6 months. (magnification views)
== END | disposition home or self-care (01) ==
LOC: RADMAMWWP 09:39
PROVIDERS: ATTEND Family Medicine
DX: R92.8 Other abnormal and inconclusive findings on diagnostic imaging of breast (principal); Z78.0 Asymptomatic menopausal state; Z80.3 Family history of malignant neoplasm of breast
CPT/HCPCS: 77065; G0279; 77061

== ENCOUNTER → 2021-10-16 | Outpatient (CLI) | payer MEDICARE ==
--- NOTE | 2021-10-16 15:33 | US ---
EXAMINATION TYPE: US kidneys/renal and bladder DATE OF EXAM: 10/16/2021 COMPARISON: NONE CLINICAL HISTORY: R31.9 HEMATURIA. intermittent hematuria EXAM MEASUREMENTS: Right Kidney: 9.3 x 4.2 x 4.1 cm Left Kidney: 11.5 x 4.3 x 4.4 cm *technical limitations due to overlying bowel content Right Kidney: no evidence of hydronephrosis Left Kidney: no evidence of hydronephrosis Bladder: appears wnl Bilateral Jets seen: no Normal Post Void Residual: yes *incidental finding: complex anechoic area right pelvic area = 8.1 x 4.9 x 4.3cm. History of complete hysterectomy There is no evidence for hydronephrosis at this point in time. No nephrolithiasis is seen. No eugene s are identified. The urinary bladder is anechoic. Bilateral ureteral jets are seen. IMPRESSION: 1. No evidence for renal pathology. 2. Complex lesion right hemipelvis. Contrast-enhanced CT is recommended for further evaluation.
== END | disposition home or self-care (01) ==
LOC: RADUSWWP 14:49
PROVIDERS: ATTEND Family Medicine
DX: R31.9 Hematuria, unspecified (principal)
CPT/HCPCS: 76770

== ENCOUNTER → 2021-11-03 | Outpatient (CLI) | payer MEDICARE ==
--- NOTE | 2021-11-03 14:10 | CT ---
EXAMINATION TYPE: CT abdomen pelvis w con CT DLP: 1548.80 mGycm, Automated exposure control for dose reduction was used. DATE OF EXAM: 11/03/2021 1:53 PM COMPARISON: None CLINICAL INDICATION:Female, 76 years old with history of R19.09 Other intra-abdominal and pelvic swel ling,; Intra-abdominal/pelvic pain TECHNIQUE: Axial CT of the abdomen and pelvis. Sagittal and coronal reformats were created on a [employer] workstation. Contrast used:70 mL of Isovue 300 with IV Contrast, Oral contrast used: with Oral Contrast FINDINGS: LOWER CHEST: Unremarkable ABDOMEN LIVER: Shrunken nodular contour to liver. GALLBLADDER AND BILE DUCTS: Gallbladder surgically absent. PANCREAS: Hazy fat stranding changes around the pancreas. SPLEEN: Enlarged for size measuring up to 14.9 cm. Small splenule is present. ADRENAL GLANDS: Unremarkable. KIDNEYS AND URETERS: No evidence of hydronephrosis or renal calculus. The ureters are unremarkable. PELVIS BLADDER: Incompletely distended but grossly unremarkable. REPRODUCTIVE: Right ovarian complex mass measuring 5.8 x 4.8 x 8.4 centimeter with internal septation and heterogeneity. ABDOMEN & PELVIS STOMACH AND BOWEL: There is a duodenal diverticulum involving the second portion of the duodenum. No evidence of bowel obstruction. PERITONEUM: No evidence of pneumoperitoneum or free fluid. VASCULATURE: No evidence of aortic aneurysm. Scattered moderate to severe atherosclerosis of the juan josé rial vasculature. Scattered clonic diverticula present. MUSCULOSKELETAL: No acute osseous abnormalities LYMPH NODES: No gross evidence for lymphadenopathy. SOFT TISSUE/ABDOMINAL WALL: Fat filled umbilical hernia measuring 1.5 cm at the neck. Early soft tiss ue portal venous shunting suspected most pronounced on the right. IMPRESSION: 1. Right ovarian complex mass measuring up to 8.4 cm. Further evaluation is recommended including pe lvic ultrasound. 2. Mild inflammation around the upper abdomen and pancreas correlate with serum lipase for pancreati tis. 3. Cirrhotic morphology to liver with splenomegaly suggesting portal hypertension. Early portal veno us shunting most proximal and anterior abdominal soft tissues. 4. Colonic diverticulosis.
== END | disposition home or self-care (01) ==
LOC: RADCTMAIN 11:03
PROVIDERS: ATTEND Family Medicine
DX: N83.8 Other noninflammatory disorders of ovary, fallopian tube and broad ligament (principal); R16.1 Splenomegaly, not elsewhere classified; K57.30 Diverticulosis of large intestine without perforation or abscess without bleeding
CPT/HCPCS: 82565; 84520; 74177; 36415; Q9967 ×2

== ENCOUNTER → 2021-12-19 | Outpatient (CLI) | payer MEDICARE | END | disposition home or self-care (01) | LOC: LABWHC1 10:12 | PROVIDERS: ATTEND Obstetrics & Gynecology Obstetrics | DX: Z00.00 Encounter for general adult medical examination without abnormal findings (principal); N83.8 Other noninflammatory disorders of ovary, fallopian tube and broad ligament; N18.1 Chronic kidney disease, stage 1 | CPT/HCPCS: 36415 ==

== ENCOUNTER → 2022-01-01 | Outpatient (CLI) | payer MEDICARE ==
--- NOTE | 2022-01-01 10:37 | MM ---
Reason for Exam: Follow-up at short interval from prior study. Last screening mammogram was performed 7 month(s) ago. Patient History: Menarche at age 10. First Full-Term at age 16. Left ovary removed at age 48. Right ovary removed at age 48. Hysterectomy at age 48. Postmenopausal. Patient used Estrogen for 10 years. Patient used Progesterone for 10 years. Patient used Hormonal Contraceptives for 10 years. 1977, Excisional Biopsy on the Left side. Core Biopsy on the Left side. 08/12/2019, Benign Core Biopsy on the left side. 03/07/2012, Benign Core Biopsy on the right side. 10/21/2003, Benign Stereotactic Core Biopsy on the left side. 10/05/1999, Benign Excisional Biopsy on the right side. Maternal cousin had breast cancer, age 40. Maternal aunt had breast cancer, age 55. Risk Values: Raine 5 year model risk: 1.9%. NCI Lifetime model risk: 3.3%. Prior Study Comparison: 06/24/2020 Bilateral Screening Mammogram, [facility]. 06/26/2021 Bilateral Screening Mammogram, [facility]. 06/30/2021 Right Diagnostic Mammogram, [facility]. Tissue Density: Right: The breast tissue is heterogeneously dense. This may lower the sensitivity of mammography. Findings: Analyzed By CAD. Similar appearing calcifications right breast posterior depth lateral upper quadrant. Overall Assessment: Probably benign, BI-RAD 3 Management: Screening Mammogram of both breasts in 6 months. A clinical breast exam by your physician is recommended on an annual basis and results should be correlated with mammographic findings. This exam should not preclude additional follow-up of suspicious palpable abnormalities. Results were given to the patient verbally at the time of exam. Electronically signed and approved by: Juan Carlos Lagos DO
== END | disposition home or self-care (01) ==
LOC: RADMAMWWP 10:03
PROVIDERS: ATTEND Family Medicine
DX: R92.8 Other abnormal and inconclusive findings on diagnostic imaging of breast (principal); Z78.0 Asymptomatic menopausal state; Z80.3 Family history of malignant neoplasm of breast
CPT/HCPCS: 77065; G0279; 77061

== ENCOUNTER → 2022-01-26 | Outpatient (CLI) | payer MEDICARE ==
--- NOTE | 2022-01-29 13:36 | PE ---
EXAMINATION TYPE: PET CT fusion skull to thigh DATE OF EXAM: 01/26/2022 CLINICAL INDICATION:Female, 76 years old with history of D487; TECHNIQUE: Following the intravenous administration of 10.62 mCi of F-18 FDG, whole body images are performed from the skull base to the midthigh. Images are reviewed on the computer in the coronal, axial, and sagittal planes. Reconstructed rotating images are created on independent workstation and reviewed on the computer. A non-contrast CT is performed in conjunction with the PET scan. Glucose level 95 mg/dL COMPARISON: CT 11/03/2021 abdomen pelvis and ultrasound 11/23/2021, PET/CT None, FINDINGS: Mediastinal SUV mean is 1.6. Hepatic parenchyma SUV mean is 2.2. SKULL BASE AND NECK: No suspicious FDG activity. CHEST, MEDIASTINUM, AND HILAR REGION: No suspicious FDG activity. ABDOMEN AND PELVIS: Right adnexal cystic structure measuring up to 7.4 x 3.4 cm which may be smaller due to technique and positioning. Hepatic cirrhosis without abnormal focus of radiotracer uptake identified. OSSEOUS STRUCTURES: No suspicious FDG activity. OTHER CT: Bilateral aphakia. Atherosclerosis of the terminal vasculature including the carotid bifurc ations and coronary arteries. The heart is mildly enlarged for size. There is a nodular contour to li jessica. The the gallbladder surgically absent. Spleen is enlarged measuring up to 15.6 cm. Fat-containin g umbilical hernia. Second portion duodenal diverticulum. Similar fat stranding changes around the pa ncreas are present. IMPRESSION: 1. No abnormal FDG activity within the right ovarian cystic lesion. Etiology remains uncertain. Cons ider gynecologic consultation. Surveillance imaging. No evidence for abnormal activity within the hea d, neck, chest, abdomen or pelvis. 2. Hepatic cirrhosis with evidence of portal hypertension.
== END | disposition home or self-care (01) ==
LOC: RADPETMAIN 06:28
PROVIDERS: ATTEND Obstetrics & Gynecology
DX: D48.7 Neoplasm of uncertain behavior of other specified sites (principal); K74.60 Unspecified cirrhosis of liver; K76.6 Portal hypertension
CPT/HCPCS: 78815; A9552

== ENCOUNTER 2022-02-15 16:50 | Emergency (ER) | payer MEDICARE ==
[2022-02-15 17:11] VITALS: RESP 18; TEMP 98.1
[2022-02-15] MEDS ORDERED: Kcentra PER PHARMACY 1 EACH MISC MISCELLANE PRN (17:20)
[2022-02-15] MEDS ORDERED: HUMAN PROTHROMBIN COMPLX 500 UNIT/16 ML VIAL IV ONE (17:30)
[2022-02-15] MEDS ORDERED: HUMAN PROTHROMBIN COMPLX IV ONE (17:30)
[2022-02-15] MEDS ORDERED: DIPH,PERTUS(ACELL)TETVAC-LF 0.5 ML VIAL IM ONE (17:34)
--- NOTE | 2022-02-15 17:41 | ED ---
General Adult HPI - General Chief complaint: Head Injury Stated complaint: Brain Bleed Time Seen by Provider: 02/15/22 17:19 Source: patient, RN notes reviewed, old records reviewed Mode of arrival: wheelchair - History of Present Illness Initial comments: Patient is a 76-year-old female who presents emergency Department complaining of a headache. She has a history of atrial fibrillation on blood thinners and fell last week. Has been up approximately 7-8 days since her fall. She states she was trimming her toenails when she fell on the bathroom, hitting the backside of her head on the floor. Denies loss of consciousness. Has a headache since that time. Saw her PCP today and a CT brain was done. Since the ER over findings on the CT. Patient is unaware of the findings on the CT. Appears to have bilateral subdural hematomas as read by radiology. Presents for further evaluation of this time. Does endorse bruising over the right elbow. Unknown last tetanus shot. Endorses a mild headache that has been constant since the injury look over the left superior aspect of her skull. Denies any blurry vision, weakness, sensory deficits. His no other acute complaints at this time. No change in neuro status. - Related Data Home Medications Medication Instructions Recorded Confirmed Calcium Carbonate/Vitamin D3 1 tab PO DAILY 02/28/15 01/24/20 [Calcium 600-Vit D3 400 Tablet] Citalopram Hydrobromide [CeleXA] 20 mg PO HS 02/28/15 01/24/20 Montelukast [Singulair] 10 mg PO HS 02/28/15 01/24/20 Vitamin E (Dl,Tocopheryl Acet) 400 unit PO DAILY 11/17/15 01/24/20 [Vitamin E (400 Iu = 180 mg)] Albuterol Nebulized [Ventolin 2.5 mg INHALATION RT-Q6H PRN 10/22/19 01/24/20 Nebulized] Ascorbic Acid [Vitamin C] 500 mg PO DAILY 10/22/19 01/24/20 Cholecalciferol [Vitamin D3 (25 1,000 unit PO DAILY 10/22/19 01/24/20 Mcg = 1000 Iu)] Lansoprazole [Prevacid] 30 mg PO QAM 10/22/19 01/24/20 Levothyroxine Sodium [Euthyrox] 50 mcg PO QAM 10/22/19 01/24/20 Pramipexole [Mirapex] 0.125 mg PO BID 10/22/19 01/24/20 Salamol Inhal 1 puff INHALATION RT-DAILY PRN 10/22/19 01/24/20 Spironolactone [Aldactone] 25 mg PO BID 10/22/19 01/24/20 atenoloL 100 mg PO QAM 12/04/19 01/24/20 Atorvastatin [Lipitor] 20 mg PO HS 01/24/20 01/24/20 Losartan [Cozaar] 25 mg PO DAILY 01/24/20 01/24/20 Prednisolone Acetate/Pf 1 drop BOTH EYES BID 01/24/20 01/24/20 [Prednisolone Acet 1% Eye Drop] Previous Rx's Medication Instructions Recorded Apixaban [Eliquis] 5 mg PO BID 30 Days #60 tab 10/28/19 Furosemide [Lasix] 40 mg PO BID #0 01/25/20 Lactulose [Cephulac] 30 gm PO TID #30 day 01/25/20 Potassium Chloride ER [K-Dur 20] 10 meq PO DAILY #0 01/25/20 Allergies Allergy/AdvReac Type Severity Reaction Status Date / Time adhesive tape Allergy blisters Verified 02/15/22 17:11 morphine Allergy Vomiting Verified 02/15/22 17:11 Penicillins Allergy numbness Verified 02/15/22 17:11 of lips, hands , feet prochlorperazine Allergy Unknown Verified 02/15/22 17:11 [From Compazine] prochlorperazine edisylate Allergy Unknown Verified 02/15/22 17:11 [From Compazine] prochlorperazine maleate Allergy Unknown Verified 02/15/22 17:11 [From Compazine] esomeprazole magnesium AdvReac Severe BURNING Verified 02/15/22 17:11 [From Nexium] PAIN fluticasone AdvReac Unknown Verified 02/15/22 17:11 [From Advair Diskus] salmeterol AdvReac Unknown Verified 02/15/22 17:11 [From Advair Diskus] Review of Systems ROS Statement: Those systems with pertinent positive or pertinent negative responses have been documented in the HPI. Review of Systems: CONST: Denies fever EYES: Denies blurry vision ENT: Denies nasal congestion C/V: Denies Chest pain RESP: Denies shortness of breath GI: Denies abdominal pain : Denies dysuria SKIN: Endorses bruising over the right elbow. MSK: Denies joint pain. NEURO: Endorses headache ROS Other: All systems not noted in ROS Statement are negative. Past Medical History Past Medical History: Asthma, Heart Failure, COPD, Diabetes Mellitus, GERD/Reflux, Hypertension, Liver Disease, Osteoarthritis (OA), Supraventricular Tachycardia (SVT), Thyroid Disorder Additional Past Medical History / Comment(s): SEE CARDIOLOGY HISTORY PROVIDED BY DR. ELVIRA STRICKLAND. IP @ [facility] FROM FOR PULMONARY EDEMA, CHF, CELLULITIS. INCONTINENT/USES PADS. O2 AT HOME? DYSPHAGIA FROM GERD. hx migraines. LEFT "eye stroke". Hiatal hernia. NON ALCHOLIC CIRRHOSIS. History of Any Multi-Drug Resistant Organisms: None Reported Past Surgical History: Breast Surgery, Cholecystectomy, Hysterectomy Additional Past Surgical History / Comment(s): Rectocele. Breast biopsies. Ambrose fundoplication. Past Anesthesia/Blood Transfusion Reactions: Postoperative Nausea & Vomiting (PONV) Past Psychological History: Anxiety, Depression Smoking Status: Former smoker Past Alcohol Use History: None Reported Past Drug Use History: None Reported - Past Family History Mother Family Medical History: Cancer Additional Family Medical History / Comment(s): lung Father Family Medical History: Cancer Additional Family Medical History / Comment(s): lung Brother(s) Family Medical History: Cancer, Liver Disease Additional Family Medical History / Comment(s): colon General Exam - General Exam Comments Initial Comments: General: Appears in no acute distress. HEAD: Normal with no signs of head trauma. Negative Huynh sign. Negative r accoon eyes. EYES: PERRLA, EOMI, conjunctiva normal, no discharge. Pupils are 2-3 mm and equal bilaterally. ENT: Hearing grossly intact, normal oropharynx. RESPIRATORY: Clear breath sounds bilaterally. No wheezes, rales, or rhonchi. C/V: Regular rate and rhythm. S1 and S2 auscultated, no edema, peripheral pulses 2+ and intact throughout ABD: Abd is soft, nontender, nondistended EXT: Normal range of motion, no obvious deformity SKIN: No rashes or lesions observed on exposed skin. NEURO: Alert and oriented x 4. Cranial nerves II-XII intact. No focal sensory or strength deficits. GCS of 15. NIH of 0. Course Vital Signs 02/15/22 02/15/22 16:58 18:19 Temperature 98.1 F Pulse Rate 73 80 Respiratory 18 18 Rate Blood Pressure 117/50 141/64 O2 Sat by Pulse 99 147 H Oximetry Medical Decision Making - Medical Decision Making Based on the patient's presentation and physical exam, does appear that the patient is having bilateral subdurals. CT as interpreted by myself does show a left-sided subdural that appears to have an acute component to it. No significant midline shift. No other obvious injury. Radiology does interpret a right extra-axial collection that is concerning for subdural as well. Vital signs within acceptable limits. I scheduled the patient that I would like to transfer her at this time due to the fall on blood thinners, with a subdural hemorrhage. There has been one week since the fall but does appear to have an acute component to the subdural. We will reverse her Eliquis with [facility]. We will obtain chest, pelvic, elbow x-ray but will not with this delay transfer. Basic labs will be obtained as well. Head of bed will be maintained at 30. Patient was in agreement with this plan. I did speak with trauma on-call, Dr. Frederick at [facility] who accepted the patient. He was in agreement with this plan. We will hold seizure prophylaxis at this time. Otherwise was in agreement with [facility]. Patient will be transferred in serious condition. Patient's imaging will be sent via PACS to the accepting hospital. X-rays did return. Chest x-ray as interpreted by myself revealed no acute cardiopulmonary process. No bony traumatic injury, no pneumothorax, no infiltrate. Patient's pelvis x-ray as interpreted by myself revealed no signs of acute traumatic process. No fractures, subluxations. No obvious soft tissue injury. Patient's right elbow x-ray revealed no acute on each medic process. No subluxation, no fracture, overlying soft tissue appears within normal limits. Patient's laboratory studies returned after she was transferred. They were remarkable for a stable macrocytic anemia with hemoglobin of 13.0. Patient does have a thrombocytopenia of 64, which does appear chronic. INR is elevated to 3.6 and coags are also elevated. Remainder the workup is unremarkable. I did reach out to the accepting trauma physician, Dr. Frederick and updated him on these findings. Patient may require platelet transfusion upon arrival. He was in agreement this plan and expressed understanding of the findings. - Lab Data Result diagrams: 02/15/22 17:48 02/15/22 17:48 Lab Results 02/15/22 02/15/22 02/15/22 Range/Units 17:48 17:48 17:48 WBC 5.4 (3.8-10.6) k/uL RBC 3.65 L (3.80-5.40) m/uL Hgb 13.0 (11.4-16.0) gm/dL Hct 37.5 (34.0-46.0) % MCV 102.8 H D (80.0-100.0) fL MCH 35.7 H (25.0-35.0) pg MCHC 34.7 (31.0-37.0) g/dL RDW 13.5 (11.5-15.5) % Plt Count 64 L (150-450) k/uL MPV 8.5 Neutrophils % 71 % Lymphocytes % 17 % Monocytes % 6 % Eosinophils % 4 % Basophils % 0 % Neutrophils # 3.8 (1.3-7.7) k/uL Lymphocytes # 0.9 L (1.0-4.8) k/uL Monocytes # 0.3 (0-1.0) k/uL Eosinophils # 0.2 (0-0.7) k/uL Basophils # 0.0 (0-0.2) k/uL Macrocytosis Slight PT 36.0 H (9.0-12.0) sec INR 3.6 H (<1.2) APTT 39.8 H (22.0-30.0) sec Sodium 135 L (137-145) mmol/L Potassium 4.7 (3.5-5.1) mmol/L Chloride 106 (98-107) mmol/L Carbon Dioxide 23 (22-30) mmol/L Anion Gap 6 mmol/L BUN 30 H (7-17) mg/dL Creatinine 1.00 (0.52-1.04) mg/dL Est GFR (CKD-EPI)AfAm 63 (>60 ml/min/1.73 sqM) Est GFR (CKD-EPI)NonAf 54 (>60 ml/min/1.73 sqM) Glucose 142 H (74-99) mg/dL Calcium 8.7 (8.4-10.2) mg/dL Total Bilirubin 2.0 H (0.2-1.3) mg/dL AST 59 H (14-36) U/L ALT 38 H (4-34) U/L Alkaline Phosphatase 227 H (38-126) U/L Total Protein 6.2 L (6.3-8.2) g/dL Albumin 3.5 (3.5-5.0) g/dL Serum Alcohol <10 mg/dL - EKG Data -: EKG Interpreted by Me EKG Comments: 12-lead Electrocardiogram Interpretation Note EKG was reviewed and interpreted by myself. 12-lead ECG performed at 1815 is interpreted by me as revealing normal sinus rhythm at a rate of 77 beats per minute. [place] is normal. AK interval is 158 ms, QRS duration is 87 ms, QTc is 411 ms.. There were no ST or T wave abnormalities to suggest myocardial ischemia or injury. R wave progression across the precordium was satisfactory. By my interpretation this EKG is non-diagnostic for acute ischemia. When compared with EKG from December 2019, no significant changes. Critical Care Time Critical Care Time: Yes Total Critical Care Time: 35 Critical Care Time: Upon my evaluation, this patient had a high probability of imminent or life- threatening deterioration due to traumatic subdural hemorrhage, which required my direct attention, intervention, and personal management. I have personally provided 35 minutes of critical care time exclusive of time spent on separately billable procedures. Time includes review of laboratory data, radiology results, discussion with consultants, and monitoring for potential decompensation. Interventions were performed as documented in my note. Disposition Clinical Impression: Subdural hematoma, Intracranial bleed, Fall Disposition: OTHER INSTITUTION NOT DEFINED Condition: Serious Referrals: Nan rBo MD [Primary Care Provider] - 1-2 days Time of Disposition: 18:05 - Out of Hospital Transfer - Req. Specs Out of Hospital Transfer - Requested Specifics: Other Emergency Center (Transfer to [facility] for further care. Needs neurosurgery for SDH.)
--- NOTE | 2022-02-15 18:12 | XR ---
EXAMINATION TYPE: XR chest 1V portable DATE OF EXAM: 02/15/2022 COMPARISON: Chest x-ray January 24, 2020 HISTORY: Chest pain after trauma injury. TECHNIQUE: Single frontal view of the chest is obtained. FINDINGS: Increased reticular and reticulonodular markings bilaterally redemonstrated. There is no s uspicious new focal air space opacity, pleural effusion, or pneumothorax seen. Cardiomegaly redemonst rated. The osseous structures are intact. IMPRESSION: Cardiomegaly without acute pulmonary process. No significant change from prior.
[2022-02-15 18:13] LABS: Basophils % (A) 0 %; Eosinophils # (A) 0.2 k/uL (0-0.7); Eosinophils % (A) 4 %; HCT 37.5 % (34.0-46.0); Lymphocytes # (A) 0.9 k/uL (1.0-4.8); Lymphocytes % (A) 17 %; MCH 35.7 pg (25.0-35.0); MCHC 34.7 g/dL (31.0-37.0); Macrocytosis Slight; Mean Platelet Volume 8.5; Monocytes # (A) 0.3 k/uL (0-1.0); Monocytes % (A) 6 %; Neutrophils # (A) 3.8 k/uL (1.3-7.7); Neutrophils % (A) 71 %; RBC 3.65 m/uL (3.80-5.40); RDW 13.5 % (11.5-15.5); WBC 5.4 k/uL (3.8-10.6)
--- NOTE | 2022-02-15 18:13 | XR ---
EXAMINATION TYPE: XR pelvis AP view DATE OF EXAM: 02/15/2022 CLINICAL HISTORY: Pain after falling injury TECHNIQUE: A single AP view of the pelvis is obtained. COMPARISON: CT pelvis November 03, 2021 FINDINGS: There is no acute fracture/dislocation evident in the pelvis. Icfe-he-ahdezgsl axial joint space loss in both hips is redemonstrated. Sacroiliac joints appear within normal limits. Pubic symp hysis is intact. The overlying soft tissue appears unremarkable. IMPRESSION: There is no acute displaced fracture in the pelvis.
--- NOTE | 2022-02-15 18:14 | XR ---
EXAMINATION TYPE: XR elbow complete RT DATE OF EXAM: 02/15/2022 CLINICAL HISTORY: Pain after fall injury TECHNIQUE: Frontal, lateral and oblique images of the right elbow are obtained. COMPARISON: None FINDINGS: There is no acute fracture/dislocation evident in the right elbow. No abnormal fat pad si gns are seen. Prominent spur from the medial epicondyles of the distal humerus at flexor tendon inser tion is noted. The overlying soft tissue appears unremarkable. IMPRESSION: There is no acute fracture or dislocation in the right elbow.
[2022-02-15 18:20] LABS: MCV 102.8 fL (80.0-100.0); Platelet Count 64 k/uL (150-450)
[2022-02-15 18:21] VITALS: BP 141/64; PULSE 80
[2022-02-15 18:23] LABS: INR 3.6 (<1.2); Partial Thromboplastin Time 39.8 sec (22.0-30.0)
[2022-02-15 18:51] LABS: ALT 38 U/L (4-34); AST 59 U/L (14-36); African American GFR (CKD) 63 (>60 ml/min/1.73 sqM); Albumin 3.5 g/dL (3.5-5.0); Alcohol <10 mg/dL; Alkaline Phosphatase 227 U/L (38-126); Anion Gap 6 mmol/L; Blood Urea Nitrogen 30 mg/dL (7-17); Calcium 8.7 mg/dL (8.4-10.2); Carbon Dioxide 23 mmol/L (22-30); Chloride 106 mmol/L (98-107); Glucose 142 mg/dL (74-99); Non-African American GFR(CKD) 54 (>60 ml/min/1.73 sqM); Potassium 4.7 mmol/L (3.5-5.1); Sodium 135 mmol/L (137-145); Total Protein 6.2 g/dL (6.3-8.2)
== END 2022-02-15 18:31 | disposition other institution (70) ==
LOC: EC 16:50
DX: S06.5X0A Traumatic subdural hemorrhage without loss of consciousness, initial encounter (principal); J44.9 Chronic obstructive pulmonary disease, unspecified; E11.9 Type 2 diabetes mellitus without complications; K21.9 Gastro-esophageal reflux disease without esophagitis; I10 Essential (primary) hypertension; M19.90 Unspecified osteoarthritis, unspecified site; E07.9 Disorder of thyroid, unspecified; F41.9 Anxiety disorder, unspecified; F32.A Depression, unspecified; Z87.891 Personal history of nicotine dependence; Z88.8 Allergy status to other drugs, medicaments and biological substances; Z88.0 Allergy status to penicillin; Z79.51 Long term (current) use of inhaled steroids; Z79.890 Hormone replacement therapy; Z79.899 Other long term (current) drug therapy; W18.12XA Fall from or off toilet with subsequent striking against object, initial encounter
CPT/HCPCS: 93005; 80053; 85025; 85610; 85730; 72170; 73080; 71045; 99291; 96365; G0480; J7168; 36415; 80320

== ENCOUNTER → 2022-02-15 | Outpatient (CLI) | payer MEDICARE ==
--- NOTE | 2022-02-15 16:41 | CT ---
EXAMINATION TYPE: CT brain wo con DATE OF EXAM: 02/15/2022 HISTORY: Fall injury with headache CT DLP: 1072 mGycm. Automated Exposure Control for Dose Reduction was Utilized. TECHNIQUE: CT scan of the head is performed without contrast. COMPARISON: CT brain January 24, 2020 FINDINGS: There is extra-axial hemorrhage on the left with some hyperdense component posteriorly axia l image 39 for reference. This measures up to 13 mm in thickness left parietal region axial image 40. Small amount of right-sided extra-axial hemorrhage anteriorly axial image 29 is noted. No midline sh ift. There is background mild diffuse ventricular and sulcal prominence consistent with mild diffuse age-related cerebral atrophy redemonstrated. There is mild low-attenuation in the periventricular wh ite matter consistent with chronic small vessel ischemic change. The globes are intact and the visua lized sinuses are clear. The calvarium is intact. IMPRESSION: Bilateral left greater than right extra-axial likely subdural hemorrhages acute on the ri ght and at least acute component on the left. No significant midline shift or hydrocephalus. Critical results communicated to ordering physician who instructed the patient to go to ER for furthe r management at time of dictation.
== END | disposition home or self-care (01) ==
LOC: RADCTMAIN 16:08
PROVIDERS: ATTEND Family Medicine
DX: S09.90XA Unspecified injury of head, initial encounter (principal); G44.319 Acute post-traumatic headache, not intractable; Z79.01 Long term (current) use of anticoagulants; W18.30XA Fall on same level, unspecified, initial encounter
CPT/HCPCS: 70450

== ENCOUNTER → 2022-04-11 | Outpatient (CLI) | payer MEDICARE ==
--- NOTE | 2022-04-11 15:29 | CT ---
EXAMINATION TYPE: CT brain wo con DATE OF EXAM: 04/11/2022 COMPARISON: 02/15/2022 HISTORY: F/U ON BRAIN BLEED FROM FALL X2 MONTHS AGO. SX AFTER FALL TO HELP WITH THE BLEED. PT C/O TISHA TTER WITH SPEAKING NOW. CT DLP: 995.50 mGycm Automated exposure control for dose reduction was used. FINDINGS: There is a large acute subdural hematoma overlying the left cerebral convexity measuring a maximal th ickness of 9 mm. Appears to extend from anterior to posterior. No hyperdensities seen in the left cer ebral convexity compatible with new hemorrhage. There is very minimal midline shift from left to righ t of 1 mm. Postsurgical changes are seen involving the calvarium bilaterally craniocervical junction maintained. Sella turcica has a normal appearance. Calvarium is stable. Orbits symmetric. Report call ed to referring clinician 3:27 PM 04/11/2022. IMPRESSION: 1. There is a acute subdural hematoma along the left cerebral convexity measuring a maximum thickness 9 mm in the area of previous mixed chronicity subdural hematoma. Minimal or no significant midline s hift possibly measuring 1 mm from left to right. This is stable from prior exam. 2. Hemorrhage along the cerebellar tentorium has resolved. Small subdural hematoma along the right ce rebral convexity within the frontal lobe has resolved.
== END | disposition home or self-care (01) ==
LOC: RADCTMAIN 14:51
PROVIDERS: ATTEND Family Medicine
DX: S06.5X0A Traumatic subdural hemorrhage without loss of consciousness, initial encounter (principal); X58.XXXA Exposure to other specified factors, initial encounter
CPT/HCPCS: 70450

== ENCOUNTER → 2022-06-16 | Outpatient (CLI) | payer MEDICARE ==
[2022-06-16 12:51] LABS: Partial Thromboplastin Time 28.5 sec (22.0-30.0); Prothrombin Time 19.2 sec (9.0-12.0)
== END | disposition home or self-care (01) ==
LOC: LABWHC1 10:34
PROVIDERS: ATTEND Internal Medicine
DX: I51.3 Intracardiac thrombosis, not elsewhere classified (principal); K75.81 Nonalcoholic steatohepatitis (NASH); D69.6 Thrombocytopenia, unspecified
CPT/HCPCS: 36415; 85610; 85730

== ENCOUNTER 2022-06-18 12:00 | Inpatient (IN) | payer MEDICARE ==
[2022-06-18] MEDS ORDERED: FUROSEMIDE 10 MG/ML 4 ML VIAL IV STA (13:16)
--- NOTE | 2022-06-18 13:19 | ED ---
General Adult HPI - General Chief complaint: Extremity Problem,Nontraumatic Stated complaint: Retaining Water Time Seen by Provider: 06/18/22 13:04 Source: patient, family, RN notes reviewed, old records reviewed Mode of arrival: ambulatory Limitations: no limitations - History of Present Illness Initial comments: This is a pleasant nontoxic-appearing 77-year-old female that presents to the emergency room with family complaining of increased bilateral lower extremity swelling with weight gain. Patient states did call her primary care doctor about who recommended Lasix 20 mg 3 times a day starting Saturday. Patient states that she did lose a little bit of weight but then it increased swelling recurred. She denies any chest pain does have some shortness of breath with exertion. Family at bedside states that she was diagnosed by Dr. Perkins at [facility] with a blood clot in her heart in May [address] on a blood thinner but they do not recall the name. -: week(s) (2) Severity scale (1-10): 0 Associated Symptoms: shortness of breath, other (BLLE edema) Treatments Prior to Arrival: other (lasix 20mg bid x4 days since Saturday) - Related Data Home Medications Medication Instructions Recorded Confirmed Calcium Carbonate/Vitamin D3 1 tab PO DAILY 02/28/15 01/24/20 [Calcium 600-Vit D3 400 Tablet] Citalopram Hydrobromide [CeleXA] 20 mg PO HS 02/28/15 01/24/20 Montelukast [Singulair] 10 mg PO HS 02/28/15 01/24/20 Vitamin E (Dl,Tocopheryl Acet) 400 unit PO DAILY 11/17/15 01/24/20 [Vitamin E (400 Iu = 180 mg)] Albuterol Nebulized [Ventolin 2.5 mg INHALATION RT-Q6H PRN 10/22/19 01/24/20 Nebulized] Ascorbic Acid [Vitamin C] 500 mg PO DAILY 10/22/19 01/24/20 Cholecalciferol [Vitamin D3 (25 1,000 unit PO DAILY 10/22/19 01/24/20 Mcg = 1000 Iu)] Lansoprazole [Prevacid] 30 mg PO QAM 10/22/19 01/24/20 Levothyroxine Sodium [Euthyrox] 50 mcg PO QAM 10/22/19 01/24/20 Pramipexole [Mirapex] 0.125 mg PO BID 10/22/19 01/24/20 Salamol Inhal 1 puff INHALATION RT-DAILY PRN 10/22/19 01/24/20 Spironolactone [Aldactone] 25 mg PO BID 10/22/19 01/24/20 atenoloL 100 mg PO QAM 12/04/19 01/24/20 Atorvastatin [Lipitor] 20 mg PO HS 01/24/20 01/24/20 Losartan [Cozaar] 25 mg PO DAILY 01/24/20 01/24/20 Prednisolone Acetate/Pf 1 drop BOTH EYES BID 01/24/20 01/24/20 [Prednisolone Acet 1% Eye Drop] Previous Rx's Medication Instructions Recorded Apixaban [Eliquis] 5 mg PO BID 30 Days #60 tab 10/28/19 Furosemide [Lasix] 40 mg PO BID #0 01/25/20 Lactulose [Cephulac] 30 gm PO TID #30 day 01/25/20 Potassium Chloride ER [K-Dur 20] 10 meq PO DAILY #0 01/25/20 Allergies Allergy/AdvReac Type Severity Reaction Status Date / Time adhesive tape Allergy blisters Verified 06/18/22 12:21 morphine Allergy Vomiting Verified 06/18/22 12:21 Penicillins Allergy numbness Verified 06/18/22 12:21 of lips, hands , feet prochlorperazine Allergy Unknown Verified 06/18/22 12:21 [From Compazine] prochlorperazine edisylate Allergy Unknown Verified 06/18/22 12:21 [From Compazine] prochlorperazine maleate Allergy Unknown Verified 06/18/22 12:21 [From Compazine] esomeprazole magnesium AdvReac Severe BURNING Verified 06/18/22 12:21 [From Nexium] PAIN fluticasone AdvReac Unknown Verified 06/18/22 12:21 [From Advair Diskus] salmeterol AdvReac Unknown Verified 06/18/22 12:21 [From Advair Diskus] Review of Systems ROS Statement: Those systems with pertinent positive or pertinent negative responses have been documented in the HPI. ROS Other: All systems not noted in ROS Statement are negative. Past Medical History Past Medical History: Asthma, Heart Failure, COPD, Diabetes Mellitus, GERD/Reflux, Hypertension, Liver Disease, Osteoarthritis (OA), Supraventricular Tachycardia (SVT), Thyroid Disorder Additional Past Medical History / Comment(s): SEE CARDIOLOGY HISTORY PROVIDED BY DR. ELVIRA STRICKLAND. IP @ [facility] FROM [id number] FOR PULMONARY EDEMA, CHF, CELLULITIS. INCONTINENT/USES PADS. O2 AT HOME? DYSPHAGIA FROM GERD. hx migraines. LEFT "eye stroke". Hiatal hernia. NON ALCHOLIC CIRRHOSIS. History of Any Multi-Drug Resistant Organisms: None Reported Past Surgical History: Breast Surgery, Cholecystectomy, Hysterectomy Additional Past Surgical History / Comment(s): Rectocele. Breast biopsies. Ambrose fundoplication. Past Anesthesia/Blood Transfusion Reactions: Postoperative Nausea & Vomiting (PONV) Past Psychological History: Anxiety, Depression Smoking Status: Former smoker Past Alcohol Use History: None Reported Past Drug Use History: None Reported - Past Family History Mother Family Medical History: Cancer Additional Family Medical History / Comment(s): lung Father Family Medical History: Cancer Additional Family Medical History / Comment(s): lung Brother(s) Family Medical History: Cancer, Liver Disease Additional Family Medical History / Comment(s): colon General Exam Limitations: no limitations General appearance: alert, in no apparent distress Head exam: Present: atraumatic Eye exam: Present: normal appearance. Absent: scleral icterus, conjunctival injection, periorbital swelling Neck exam: Present: full ROM. Absent: tenderness, meningismus Respiratory exam: Present: normal lung sounds bilaterally. Absent: respiratory distress, accessory muscle use Cardiovascular Exam: Present: regular rate GI/Abdominal exam: Present: soft. Absent: tenderness, rigid Extremities exam: Present: tenderness, normal capillary refill, pedal edema Back exam: Absent: tenderness, CVA tenderness (R), CVA tenderness (L) Neurological exam: Present: alert, oriented X3 Psychiatric exam: Present: normal affect, normal mood Skin exam: Present: warm, dry, normal color. Absent: cyanosis, diaphoretic, petechiae, pallor Course Vital Signs 06/18/22 06/18/22 06/18/22 12:19 13:15 13:49 Temperature 98.4 F Pulse Rate 71 60 Respiratory 20 18 16 Rate Blood Pressure 140/54 119/62 O2 Sat by Pulse 99 97 Oximetry EKG Findings - EKG Results: EKG: sinus rhythm (Sinus rhythm with a ventricular rate of 67, NH interval 0.166, QRS 0.93, QTC 0.426, normal axis) Medical Decision Making - Medical Decision Making Sinus rhythm with a ventricular rate of 67, NH interval 0.166, QRS 0.93, QTC 0.426, normal axis no change compared to old 02/15/2022 Patient was hospitalized with a "blood clot in her heart" May 18 and discharged on May the [facility] in [place] per family. She is on a blood thinner but does not remember the name of the medication. Chest x-ray interpreted by me shows cardiomegaly. No evidence of mass or infiltrate. Radiologist interpretation cardiomegaly with interstitial fibrosis and/or edema. No new acute infiltrate Labs show no evidence of leukocytosis. Electrolytes show no concerning values. Troponin 0.027. BNP 1080. Patient was given Lasix in the emergency room. Patient states that she would prefer to be admitted to the hospital but due to the rapid increased swelling of her lower extremities, hands and shortness of breath. States that she is currently taking Coumadin prescribed by Dr. Laquita Geronimo for " blood clot in her heart" CHF, anasarca ely - Lab Data Result diagrams: 06/18/22 13:20 06/18/22 13:20 Lab Results 06/18/22 06/18/22 06/18/22 Range/Units 13:20 13:20 13:20 WBC 6.2 (3.8-10.6) k/uL RBC 3.53 L (3.80-5.40) m/uL Hgb 12.3 (11.4-16.0) gm/dL Hct 36.2 (34.0-46.0) % MCV 102.6 H (80.0-100.0) fL MCH 34.8 (25.0-35.0) pg MCHC 34.0 (31.0-37.0) g/dL RDW 13.9 (11.5-15.5) % Plt Count 79 L (150-450) k/uL MPV 8.3 Neutrophils % 77 % Lymphocytes % 13 % Monocytes % 4 % Eosinophils % 3 % Basophils % 0 % Neutrophils # 4.8 (1.3-7.7) k/uL Lymphocytes # 0.8 L (1.0-4.8) k/uL Monocytes # 0.3 (0-1.0) k/uL Eosinophils # 0.2 (0-0.7) k/uL Basophils # 0.0 (0-0.2) k/uL Macrocytosis Slight PT 19.4 H (9.0-12.0) sec INR 2.0 H (<1.2) APTT 28.9 (22.0-30.0) sec Sodium 134 L (137-145) mmol/L Potassium 3.9 (3.5-5.1) mmol/L Chloride 101 (98-107) mmol/L Carbon Dioxide 33 H (22-30) mmol/L Anion Gap 0 mmol/L BUN 21 H (7-17) mg/dL Creatinine 0.86 (0.52-1.04) mg/dL Est GFR (CKD-EPI)AfAm 75 (>60 ml/min/1.73 sqM) Est GFR (CKD-EPI)NonAf 65 (>60 ml/min/1.73 sqM) Glucose 121 H (74-99) mg/dL Calcium 7.8 L (8.4-10.2) mg/dL Magnesium 1.6 (1.6-2.3) mg/dL Total Bilirubin 2.5 H (0.2-1.3) mg/dL AST 51 H (14-36) U/L ALT 41 H (4-34) U/L Alkaline Phosphatase 229 H (38-126) U/L Troponin I (0.000-0.034) ng/mL NT-Pro-B Natriuret Pep pg/mL Total Protein 5.1 L (6.3-8.2) g/dL Albumin 2.7 L (3.5-5.0) g/dL 06/18/22 06/18/22 Range/Units 13:20 13:20 WBC (3.8-10.6) k/uL RBC (3.80-5.40) m/uL Hgb (11.4-16.0) gm/dL Hct (34.0-46.0) % MCV (80.0-100.0) fL MCH (25.0-35.0) pg MCHC (31.0-37.0) g/dL RDW (11.5-15.5) % Plt Count (150-450) k/uL MPV Neutrophils % % Lymphocytes % % Monocytes % % Eosinophils % % Basophils % % Neutrophils # (1.3-7.7) k/uL Lymphocytes # (1.0-4.8) k/uL Monocytes # (0-1.0) k/uL Eosinophils # (0-0.7) k/uL Basophils # (0-0.2) k/uL Macrocytosis PT (9.0-12.0) sec INR (<1.2) APTT (22.0-30.0) sec Sodium (137-145) mmol/L Potassium (3.5-5.1) mmol/L Chloride (98-107) mmol/L Carbon Dioxide (22-30) mmol/L Anion Gap mmol/L BUN (7-17) mg/dL Creatinine (0.52-1.04) mg/dL Est GFR (CKD-EPI)AfAm (>60 ml/min/1.73 sqM) Est GFR (CKD-EPI)NonAf (>60 ml/min/1.73 sqM) Glucose (74-99) mg/dL Calcium (8.4-10.2) mg/dL Magnesium (1.6-2.3) mg/dL Total Bilirubin (0.2-1.3) mg/dL AST (14-36) U/L ALT (4-34) U/L Alkaline Phosphatase (38-126) U/L Troponin I 0.027 (0.000-0.034) ng/mL NT-Pro-B Natriuret Pep 1080 pg/mL Total Protein (6.3-8.2) g/dL Albumin (3.5-5.0) g/dL Disposition Clinical Impression: CHF (congestive heart failure), Shortness of breath, Anasarca Disposition: ADMITTED IP TO THIS HOSP Referrals: Nan Bro MD [Primary Care Provider] - 1-2 days Decision Date: 06/18/22 Decision Time: 14:38
[2022-06-18 13:40] LABS: Basophils % (A) 0 %; Eosinophils # (A) 0.2 k/uL (0-0.7); Eosinophils % (A) 3 %; HCT 36.2 % (34.0-46.0); HGB 12.3 gm/dL (11.4-16.0); Lymphocytes # (A) 0.8 k/uL (1.0-4.8); Lymphocytes % (A) 13 %; MCH 34.8 pg (25.0-35.0); MCV 102.6 fL (80.0-100.0); Macrocytosis Slight; Mean Platelet Volume 8.3; Monocytes # (A) 0.3 k/uL (0-1.0); Monocytes % (A) 4 %; Neutrophils # (A) 4.8 k/uL (1.3-7.7); Neutrophils % (A) 77 %; RBC 3.53 m/uL (3.80-5.40); RDW 13.9 % (11.5-15.5); WBC 6.2 k/uL (3.8-10.6)
--- NOTE | 2022-06-18 13:47 | XR ---
EXAMINATION TYPE: XR chest 2V DATE OF EXAM: 06/18/2022 COMPARISON: Chest x-ray February 15, 2022 HISTORY: Difficulty in breathing. TECHNIQUE: Frontal and lateral views of the chest are obtained. FINDINGS: Reticular increased markings bilaterally redemonstrated. Diminished inspiration on current study. There is no focal air space opacity, pleural effusion, or pneumothorax seen. Cardiomegaly agai n seen. The osseous structures are intact. IMPRESSION: Cardiomegaly with interstitial fibrosis and/or edema. No new acute infiltrate.
[2022-06-18 13:53] LABS: Platelet Count 79 k/uL (150-450)
[2022-06-18 13:58] LABS: Partial Thromboplastin Time 28.9 sec (22.0-30.0); Prothrombin Time 19.4 sec (9.0-12.0)
[2022-06-18 14:13] LABS: Albumin 2.7 g/dL (3.5-5.0); Calcium 7.8 mg/dL (8.4-10.2); Magnesium 1.6 mg/dL (1.6-2.3); Potassium 3.9 mmol/L (3.5-5.1); Total Bilirubin 2.5 mg/dL (0.2-1.3); Total Protein 5.1 g/dL (6.3-8.2)
[2022-06-18] MEDS ORDERED: NALOXONE 0.4 MG/ML 1 ML VIAL IV PRN (16:03)
[2022-06-18] MEDS ORDERED: bisacodyL 5 MG TABLET.DR PO PRN (16:03)
[2022-06-18] MEDS ORDERED: ONDANSETRON 4 MG/2 ML VIAL IVP PRN (16:03)
[2022-06-18] MEDS ORDERED: MELATONIN 3 MG TABLET PO PRN (16:03)
[2022-06-18] MEDS ORDERED: DEXTROSE 50% SYRINGE 50 ML IVP PRN ×2 (16:06)
--- NOTE | 2022-06-18 16:11 | P.HPIM ---
History of Present Illness H&P Date: 06/18/22 Patient is a 77-year-old female with atrial fibrillation, congestive heart failure, and prior intracerebral hemorrhage who presented to the emergency department with complaints of lower extremity edema. In the ER she underwent an extensive evaluation. Her vital signs were within normal on arrival. She was found to have an acute exacerbation of congestive heart failure complicated by thrombocytopenia, elevated liver enzymes, and hyponatremia. She was given a dose of Lasix. Arrangements were made for admission. Cardiology was consulted. Of note patient was just released from [facility] on 06/04/22. She reports she had a 3 week hospital stay. She was getting evaluated by Dr. Perkins out for a watchman device when he found an intracardiac thrombus on her LENNY. She was subsequently started on Coumadin. She reports that she also has an intrapelvic mass which needs to be evaluated but they're waiting to do this until she has the watchman device placed and can be off of Coumadin. She typically follows with Dr. Strickland. She also reports that in fall she was diagnosed with an intracerebral hemorrhage requiring percutaneous intervention. She also reports easy bruising and some nasal bleeding since starting on Coumadin. She has been feeling weak and rundown. She reports that she has had intermittent lower extreme the swelling which has been getting worse over the last week. She has been feeling short of breath. She is also reporting some "unusual" feelings in her chest. It is not pain but feels like a flutter or palpitation. She is frustrated about how her health has been over the last several months. Vital signs reviewed General: nontoxic, no distress, appears at stated age Derm: warm, dry Eyes: EOMI, no lid lag, anicteric sclera, pupils equal round reactive to light ENT: Nose and ears atraumatic, no thrush, no pharyngeal erythema Cardiovascular: S1S2 reg, no murmur, positive posterior tibial pulse bilateral, 3+ lower extremity edema, capillary refill less than 2 seconds Lungs: clear to auscultation bilateral, no rhonchi, no rales, no wheeze, no accessory muscle use Abdominal: soft, abdominal bloating, tender to palpation diffusely, no guarding, no appreciable organomegaly, normal bowel sounds Ext: no gross muscle atrophy, no contractures Neuro: CN II-XII grossly intact, light touch intact all 4 extremities, finger to nose within normal limits, Psych: Alert, oriented, appropriate affect Assessment: Acute exacerbation of CHF, with unknown EF Pulmonary HTN DM 2 Intracardiac thrombus P. A fib currently in NSR Hepatic cirrhosis on CT scan Ovarian cyst being followed in the outpatient setting. Obesity with BMI 39.5 Moderate protein calorie malnutrition Chronic: COPD without exacerbation GERD HTN Imaging: Chest x-ray is reviewed by myself reveals increased vasculature EKG is reviewed by myself reveals normal sinus rhythm at a rate of 67, normal axis, normal intervals, no significant ST-T wave changes Data Review: Laboratory analysis reviewed. CBC remarkable for platelet count of 79, INR 2, CMP remarkable for sodium of 134, BUN 21, glucose 121, total bilirubin 2.5, AST 51, ALT 41, alkaline phosphatase 229, BNP 1080, troponin 0.0-7, albumin 2.7 Plan: -Admit patient to the telemetry unit, case was discussed with [facility] emergency department nurse practitioner -Consult cardiology -Lasix 40 mg twice daily, strict I's and O's, daily weight -Lopressor 50 mg twice daily will hold when necessary atenolol, Aldactone 25 mg twice daily, patient is not chronically on an JACKIE inhibitor -Start sliding scale insulin, follow blood sugars - Daily INRs, Coumadin dosing -Check records from [facility] regarding recent hospitalization to confirm intracardiac thrombus -Remainder of meds reviewed and resumed as appropriate. The patient is admitted with an anticipated greater than 2 midnight stay for evaluation of acute exacerbation of congestive heart failure. Surrogate decision-maker: CODE STATUS: DO NOT RESUSCITATE DVT prophylaxis: On Coumadin Anticipated discharge date: Pending clinical course Anticipated discharge place: Pending clinical course This dictation was prepared using [employer] voice recognition software. Though every attempt is made to correct errors during during dictation some may still exist. Past Medical History Past Medical History: Asthma, Heart Failure, COPD, Diabetes Mellitus, GERD/Reflux, Hypertension, Liver Disease, Osteoarthritis (OA), Supraventricular Tachycardia (SVT), Thyroid Disorder Additional Past Medical History / Comment(s): SEE CARDIOLOGY HISTORY PROVIDED BY DR. ELVIRA STRICKLAND. IP @ [facility] FROM [id number] FOR PULMONARY EDEMA, CHF, CELLULITIS. INCONTINENT/USES PADS. O2 AT HOME? DYSPHAGIA FROM GERD. hx migraines. LEFT "eye stroke". Hiatal hernia. NON ALCHOLIC CIRRHOSIS. History of Any Multi-Drug Resistant Organisms: None Reported Past Surgical History: Breast Surgery, Cholecystectomy, Hysterectomy Additional Past Surgical History / Comment(s): Rectocele. Breast biopsies. Ambrose fundoplication. Past Anesthesia/Blood Transfusion Reactions: Postoperative Nausea & Vomiting (PONV) Past Psychological History: Anxiety, Depression Smoking Status: Former smoker Past Alcohol Use History: None Reported Past Drug Use History: None Reported - Past Family History Mother Family Medical History: Cancer Additional Family Medical History / Comment(s): lung Father Family Medical History: Cancer Additional Family Medical History / Comment(s): lung Brother(s) Family Medical History: Cancer, Liver Disease Additional Family Medical History / Comment(s): colon Medications and Allergies Home Medications Medication Instructions Recorded Confirmed Type Citalopram Hydrobromide [CeleXA] 20 mg PO HS 02/28/15 06/18/22 History Albuterol Nebulized [Ventolin 2.5 mg INHALATION RT-Q6H PRN 10/22/19 06/18/22 History Nebulized] Ascorbic Acid [Vitamin C] 1,000 mg PO DAILY 10/22/19 06/18/22 History Lansoprazole [Prevacid] 30 mg PO DAILY 10/22/19 06/18/22 History Levothyroxine Sodium [Euthyrox] 50 mcg PO DAILY 10/22/19 06/18/22 History Pramipexole [Mirapex] 0.125 mg PO BID 10/22/19 06/18/22 History Spironolactone [Aldactone] 25 mg PO BID 10/22/19 06/18/22 History atenoloL 100 mg PO DAILY PRN 12/04/19 06/18/22 History Acetaminophen Tab [Tylenol] 650 mg PO Q6H PRN 06/18/22 06/18/22 History Albuterol Inhaler [Ventolin Hfa 2 puff INHALATION RT-Q6H PRN 06/18/22 06/18/22 History Inhaler] Cholecalciferol [Vitamin D3 (25 25 mcg PO DAILY 06/18/22 06/18/22 History Mcg = 1000 Iu)] Ferrous Sulfate [Feosol] 325 mg PO Q48H 06/18/22 06/18/22 History Furosemide [Lasix] 20 mg PO BID 06/18/22 06/18/22 History Magnesium 250 mg PO DAILY 06/18/22 06/18/22 History Metoprolol Tartrate [Lopressor] 50 mg PO BID 06/18/22 06/18/22 History Warfarin [Coumadin] 0.5 mg PO HS 06/18/22 06/18/22 History Allergies Allergy/AdvReac Type Severity Reaction Status Date / Time adhesive tape Allergy blisters Verified 06/18/22 15:38 morphine Allergy Vomiting Verified 06/18/22 15:38 Penicillins Allergy numbness Verified 06/18/22 15:38 of lips, hands , feet prochlorperazine Allergy Unknown Verified 06/18/22 15:38 [From Compazine] prochlorperazine edisylate Allergy Unknown Verified 06/18/22 15:38 [From Compazine] prochlorperazine maleate Allergy Unknown Verified 06/18/22 15:38 [From Compazine] esomeprazole magnesium AdvReac Severe BURNING Verified 06/18/22 15:38 [From Nexium] PAIN fluticasone AdvReac Unknown Verified 06/18/22 15:38 [From Advair Diskus] salmeterol AdvReac Unknown Verified 06/18/22 15:38 [From Advair Diskus] Physical Exam Osteopathic Statement: *. No significant issues noted on an osteopathic structural exam other than those noted in the History and Physical/Consult. Vitals: Vital Signs Temp Pulse Resp BP Pulse Ox 06/18/22 15:41 76 18 116/53 93 L 06/18/22 13:49 60 16 119/62 97 06/18/22 13:15 18 06/18/22 12:19 98.4 F 71 20 140/54 99 Intake and Output 06/18/22 06/18/22 06/18/22 06:59 14:59 22:59 Other: Weight 101.151 kg Results CBC & Chem 7: 06/18/22 13:20 06/18/22 13:20 Labs: Abnormal Lab Results - Last 24 Hours (Table) 06/18/22 06/18/22 06/18/22 Range/Units 13:20 13:20 13:20 RBC 3.53 L (3.80-5.40) m/uL MCV 102.6 H (80.0-100.0) fL Plt Count 79 L (150-450) k/uL Lymphocytes # 0.8 L (1.0-4.8) k/uL PT 19.4 H (9.0-12.0) sec INR 2.0 H (<1.2) Sodium 134 L (137-145) mmol/L Carbon Dioxide 33 H (22-30) mmol/L BUN 21 H (7-17) mg/dL Glucose 121 H (74-99) mg/dL Calcium 7.8 L (8.4-10.2) mg/dL Total Bilirubin 2.5 H (0.2-1.3) mg/dL AST 51 H (14-36) U/L ALT 41 H (4-34) U/L Alkaline Phosphatase 229 H (38-126) U/L Total Protein 5.1 L (6.3-8.2) g/dL Albumin 2.7 L (3.5-5.0) g/dL
[2022-06-18] MEDS: INSULIN ASPART (NovoLOG) 100 UNIT/ML VIAL SQ SCH ×2 (19:01→21:03)
[2022-06-18] MEDS: ACETAMINOPHEN TAB 325 MG TAB PO PRN (19:02)
[2022-06-18] MEDS ORDERED: ALBUTEROL NEBULIZED 2.5 MG/3 ML INHALATION PRN (19:47)
[2022-06-18 20:58] LABS: Glucose,Whole Blood 165 mg/dL (70-110)
[2022-06-18] MEDS: WARFARIN 0.5 MG TAB PO SCH (21:01)
[2022-06-18] MEDS: FUROSEMIDE 10 MG/ML 4 ML VIAL IV SCH (21:02)
[2022-06-18] MEDS: PRAMIPEXOLE 0.125 MG TAB PO SCH (21:02)
[2022-06-18] MEDS: METOPROLOL TARTRATE 50 MG TAB PO SCH (21:03)
[2022-06-18] MEDS: CITALOPRAM HYDROBROMIDE 20 MG TAB PO SCH (21:03)
[2022-06-18] MEDS: SPIRONOLACTONE 25 MG TAB PO SCH (21:04)
[2022-06-19] MEDS ORDERED: Magnesium Replacement Protocol 1 EACH MISC MISCELLANE PRN (05:04)
[2022-06-19] MEDS: LEVOTHYROXINE 50 MCG TAB PO SCH (05:24)
[2022-06-19] MEDS: PANTOPRAZOLE 40 MG TABLET PO SCH (05:24)
[2022-06-19] MEDS: MAGNESIUM SULFATE-D5W PMX 1 GM in DEXTROSE/WATER 1 100ML.BAG IVPB SCH ×2 (05:24→06:24)
[2022-06-19 06:15] LABS: Glucose,Whole Blood 101 mg/dL (70-110)
[2022-06-19] MEDS: INSULIN ASPART (NovoLOG) 100 UNIT/ML VIAL SQ SCH ×4 (06:19→21:16)
[2022-06-19 09:22] LABS: HCT 37.4 % (34.0-46.0); HGB 12.5 gm/dL (11.4-16.0); MCHC 33.5 g/dL (31.0-37.0); MCV 104.4 fL (80.0-100.0); Macrocytosis Moderate; Mean Platelet Volume 8.7; RBC 3.58 m/uL (3.80-5.40); RDW 14.1 % (11.5-15.5); WBC 5.4 k/uL (3.8-10.6)
[2022-06-19 09:32] LABS: Platelet Count 75 k/uL (150-450)
[2022-06-19 09:33] LABS: Calcium 7.9 mg/dL (8.4-10.2); Magnesium 2.2 mg/dL (1.6-2.3); Phosphorus 2.7 mg/dL (2.5-4.5)
[2022-06-19] MEDS: FUROSEMIDE 10 MG/ML 4 ML VIAL IV SCH (09:50)
[2022-06-19] MEDS: SPIRONOLACTONE 25 MG TAB PO SCH ×2 (09:50→21:16)
[2022-06-19] MEDS: METOPROLOL TARTRATE 50 MG TAB PO SCH ×2 (09:50→21:16)
[2022-06-19 09:56] LABS: INR 1.9 (<1.2); Prothrombin Time 18.6 sec (9.0-12.0)
[2022-06-19] MEDS: PRAMIPEXOLE 0.125 MG TAB PO SCH ×2 (09:56→21:16)
[2022-06-19 11:39] LABS: Glucose,Whole Blood 143 mg/dL (70-110)
--- NOTE | 2022-06-19 11:53 | CONS ---
CONSULTATION HISTORY OF PRESENT ILLNESS: This is a 77-year-old lady with a history of intracranial bleed, comes into the hospital with bilateral lower extremity swelling. She was actually referred for a Watchman procedure to Yamile Freitas. Apparently, she had a transesophageal echo according to the note and was told that she has a thrombus in her heart chamber and was placed on Coumadin. Her Watchman procedure was, therefore, delayed. She does not have any chest pain. No shortness of breath. She just was concerned that she had lower extremity edema and came in. She is actually in a sinus rhythm, although she does have a history of paroxysmal atrial fibrillation. She is resting comfortably without symptoms. Her edema of lower extremity has actually improved remarkably. She is in sinus rhythm, hemodynamically stable. The patient has had a cardiac catheterization in 2019, and this study revealed that she does not have any significant obstructive CAD. Her other medical problems include hypertension, obstructive sleep apnea, pulmonary hypertension, diastolic heart failure. She developed intracranial bleed; and therefore, her anticoagulation was stopped, and she was being prepared for Watchman procedure, but it appears that she now has developed a thrombus in the cardiac chamber, which the details are not verified, and she comes in with lower extremity edema. She does have a diagnosis of paroxysmal atrial fibrillation, but she is maintaining sinus rhythm. PAST MEDICAL HISTORY: 1. History of intracranial bleed. 2. Paroxysmal atrial fibrillation. 3. Noncritical CAD. 4. Hypertension. 5. Hyperlipidemia. 6. Obstructive sleep apnea with pulmonary hypertension. 7. Hyperthyroidism. PHYSICAL EXAMINATION: VITAL SIGNS: Blood pressure is 118/70. Pulse rate is 70, regular. HEENT: Unremarkable. Fundus was not examined by me. NECK: Supple. No JVD. I do not hear a carotid bruit. HEART: Reveals S1 and S2 heard normally. Short systolic murmur at left sternal border. Rhythm is regular. LUNGS: Clear. ABDOMEN: Soft and nontender. EXTREMITIES: Lower extremities reveal bilateral trace edema. Diminished pulses. CENTRAL NERVOUS SYSTEM: Normal. IMPRESSION: 1. No evidence of congestive heart failure. 2. History of paroxysmal atrial fibrillation. 3. Lower extremity edema, which has resolved. 4. History of intracranial bleed. 5. Obstructive sleep apnea, wears CPAP regularly, has pulmonary hypertension. 6. Question of some thrombus in the cardiac chamber, for which she is already on Coumadin, and INR is 1.9 today. RECOMMENDATIONS: I am recommending they can increase the Lasix from 20 mg b.i.d. to 40 mg in the morning and 20 in the evening, increase activity, and discharge her today after checking the room air O2 saturation. She can follow up at [facility] for Watchman procedure followup. I will see her in the office in a couple of weeks. The patient can be discharged today and continue the same dose of Coumadin with a home monitoring that she has already set up. MMODL / IJN: [id number] /
[2022-06-19 12:05] VITALS: BMI 39.4
--- NOTE | 2022-06-19 12:23 | HP ---
HISTORY AND PHYSICAL HISTORY OF PRESENT ILLNESS: This 77-year-old woman was admitted with CHF with acute exacerbation, is on IV Lasix. The patient is diuresing and the patient is feeling slightly better. The patient has bilateral leg swelling. Cardiology is following the patient closely. PAST MEDICAL HISTORY: Reviewed. REVIEW OF SYSTEMS: A 14-point review is negative except as mentioned earlier. CURRENT MEDICATIONS: Reviewed include IV Lasix, doses and rest of medication noted. PHYSICAL EXAMINATION: VITAL SIGNS: Pulse is 72, blood pressure is 130/51, respirations 16., NECK: No jugular venous distention. CARDIOVASCULAR: S1, S2. RESPIRATIONS: Few scattered rhonchi and crackles in the bases. ABDOMEN: Soft, nontender. LEGS: Bilateral leg edema. NERVOUS SYSTEM: No focal. deficits LABORATORY DATA: Reviewed. The chest x-ray on admission which is reviewed personally by me showed evidence of CHF. ASSESSMENT: 1. Congestive heart failure acute exacerbation with ejection fraction unknown. 2. Diabetes mellitus, type 2. 3. Chronic obstructive pulmonary disease. 4. Atrial fibrillation. 5. History of liver disease. 6. History of supraventricular tachycardia. 7. History of brain bleed. 8. History of intracardiac thrombus and planning for Watchman at [facility]. 9. Multiple medical issues. RECOMMENDATIONS: This is a 77-year-old woman who presented with multiple complex medical issues, we will monitor the patient closely. Continue the current medications, continue the Lasix, and we will closely follow with Cardiology. Continue rest of medications. Prognosis guarded. Further recommendations to follow. Will monitor intake and output closely and limit intake to 1200 mL per 24 hours. MMODL / IJN: [id number] /
[2022-06-19] MEDS ORDERED: FUROSEMIDE 20 MG TAB PO SCH (16:00)
[2022-06-19 16:33] LABS: Glucose,Whole Blood 123 mg/dL (70-110)
[2022-06-19] MEDS: WARFARIN 0.5 MG TAB PO SCH (19:12)
[2022-06-19 20:04] LABS: Glucose,Whole Blood 149 mg/dL (70-110)
[2022-06-19] MEDS: CITALOPRAM HYDROBROMIDE 20 MG TAB PO SCH (21:16)
[2022-06-19] MEDS: ACETAMINOPHEN TAB 325 MG TAB PO PRN (21:20)
[2022-06-20 04:13] VITALS: PULSE 70; RESP 18
[2022-06-20 06:07] LABS: Glucose,Whole Blood 98 mg/dL (70-110)
[2022-06-20] MEDS: INSULIN ASPART (NovoLOG) 100 UNIT/ML VIAL SQ SCH ×2 (06:16→12:33)
[2022-06-20] MEDS: LEVOTHYROXINE 50 MCG TAB PO SCH (06:37)
[2022-06-20] MEDS: PANTOPRAZOLE 40 MG TABLET PO SCH (06:37)
[2022-06-20 08:11] VITALS: BP 117/62; TEMP 97.7
[2022-06-20] MEDS: SPIRONOLACTONE 25 MG TAB PO SCH (08:11)
[2022-06-20] MEDS: PRAMIPEXOLE 0.125 MG TAB PO SCH (08:11)
[2022-06-20] MEDS: METOPROLOL TARTRATE 50 MG TAB PO SCH (08:11)
--- NOTE | 2022-06-20 08:12 | XR ---
EXAMINATION TYPE: XR chest 1V portable DATE OF EXAM: 06/20/2022 CLINICAL HISTORY: Difficulty breathing and CHF progress study. TECHNIQUE: Single AP portable upright view of the chest is obtained. COMPARISON: Chest x-ray from 2 days earlier and older studies. FINDINGS: Reticular increased markings bilaterally redemonstrated. No suspicious new focal airspace opacity, pleural effusion, or pneumothorax seen. Stable mild cardiomegaly with atherosclerotic thorac ic aorta. Osseous structures are intact. IMPRESSION: Mild cardiomegaly and chronic parenchymal changes without new acute pulmonary process. No significant change from most recent x-ray.
[2022-06-20] MEDS ORDERED: FUROSEMIDE 40 MG TAB PO SCH (09:00)
[2022-06-20 09:58] LABS: INR 1.9 (<1.2); Prothrombin Time 18.7 sec (9.0-12.0)
[2022-06-20 10:04] LABS: Calcium 7.8 mg/dL (8.4-10.2); Potassium 3.6 mmol/L (3.5-5.1)
--- NOTE | 2022-06-20 11:24 | P.PN ---
Subjective Progress Note Date: 06/20/22 HISTORY OF PRESENT ILLNESS: Patient examined this morning at the bedside. Patient denies chest pain or pressure. She denies shortness of breath. She has been transitioned over to o ral Lasix. INR today 1.9. Vital signs are stable. PHYSICAL EXAM: VITAL SIGNS: Reviewed. GENERAL: Well-developed in no acute distress. NECK: Supple. No JVD or thyromegaly LUNGS: Respirations even and unlabored. Lungs essentially clear to auscultation bilaterally. HEART: Regular rate and rhythm. S1 and S2 heard. EXTREMITIES: Normal range of motion. No clubbing or cyanosis. Peripheral pulses intact. 2+ bilateral lower extremity edema ASSESSMENT: Chronic lower extremity edema Paroxysmal atrial fibrillation History of intracranial bleed Obstructive sleep apnea Cardiac thrombus, on Coumadin PLAN: Per Dr. Webster, patient to take 1 mg of Coumadin this evening and then continue her normal dose of 0.5 mg daily Continue additional cardiac medications Patient is stable for discharge home today from a cardiac standpoint Nurse practitioner note has been reviewed by physician. Signing provider agrees with the documented findings, assessment, and plan of care. Objective - Vital Signs Vital signs: Vital Signs Temp 97.7 F 06/20/22 08:00 Pulse 70 06/20/22 08:00 Resp 18 06/20/22 08:00 BP 117/62 06/20/22 08:00 Pulse Ox 92 L 06/20/22 10:03 FiO2 Intake & Output 06/19/22 06/20/22 06/20/22 18:59 06:59 18:59 Intake Total 180 Output Total 600 300 300 Balance -600 -300 -120 Weight 100.9 kg Intake: Oral 180 Output: Urine 600 300 300 Other: Voiding Method Toilet Toilet Incontinent Incontinent External Catheter External Catheter # Voids 1 - Labs CBC & Chem 7: 06/19/22 08:43 06/20/22 07:54 Labs: Abnormal Lab Results - Last 24 Hours (Table) 06/19/22 06/19/22 06/19/22 Range/Units 11:37 16:31 20:03 PT (9.0-12.0) sec INR (<1.2) Sodium (137-145) mmol/L Carbon Dioxide (22-30) mmol/L BUN (7-17) mg/dL Glucose (74-99) mg/dL POC Glucose (mg/dL) 143 H 123 H 149 H (70-110) mg/dL Calcium (8.4-10.2) mg/dL 06/20/22 06/20/22 Range/Units 07:54 07:54 PT 18.7 H (9.0-12.0) sec INR 1.9 H (<1.2) Sodium 135 L (137-145) mmol/L Carbon Dioxide 32 H (22-30) mmol/L BUN 23 H (7-17) mg/dL Glucose 109 H (74-99) mg/dL POC Glucose (mg/dL) (70-110) mg/dL Calcium 7.8 L (8.4-10.2) mg/dL
[2022-06-20 11:52] LABS: Glucose,Whole Blood 95 mg/dL (70-110)
[2022-06-20] MEDS ORDERED: WARFARIN 1 MG TAB PO ONE (18:00)
--- NOTE | 2022-06-21 06:08 | P.DS ---
Providers Date of admission: 06/18/22 15:25 Expected date of discharge: 06/20/22 Attending physician: Salinas Prince Consults: 06/18/22 16:04 Consult Physician Routine Consulting Provider: Lucita Webster Consult Reason/Comments: CHF Do you want consulting provider notified?: Yes Primary care physician: Nan Bro [facility] Course: Final diagnosis Congestive heart failure acute exacerbation with ejection fraction unknown Diabetes mellitus, type II Chronic obstructive pulmonary disease, not an exacerbation Atrial fibrillation History of liver disease History of supraventricular tachycardia History of brain bleed history of intracardiac thrombus and planning for the watchman at [facility] Discharge disposition Patient is being discharged in a stable condition with guarded prognosis to home. Patient will follow-up with Dr. Bro in the outpatient setting upon discharge. Patient is to follow-up with cardiology outpatient as scheduled. Total time taken is greater than 35 minutes. Hospital course This is a 77-year-old female who was recently admitted with shortness of breath and found to be in CHF exacerbation. Closely monitored. Cardiology following the patient maintained on IV Lasix and improvement in dyspnea has been cleared for discharge. Patient eager to go home. Patient will follow-up at [facility] outpatient as scheduled. Patient encouraged to continue Lasix 40 mg twice daily monitor intake and output with fluid restrictions as well as no salt intake. Patient encouraged to use compression stockings or Josh wraps to bilateral lower extremities from the toes up to the knees elevated while at rest. Please refer to cardiology no for further HPI. Currently no reports of chest pain, shortness of breath, or palpitations. Patient is afebrile. No reports of nausea or vomiting and patient is tolerating diet. Patient will be discharged home today. Physical exam: Gen: This is a 77-year-old female who is awake, alert and oriented 3, well- developed, well-nourished, obese HEENT: Head is atraumatic, normocephalic. Pupils equal, round. Sclerae is anicteric. NECK: Supple. No JVD. No lymphadenopathy. No thyromegaly. LUNGS: Diminished breath sounds bilaterally with no wheezes or rhonchi. No intercostal retractions. HEART: S1, S2 are muffled. ABDOMEN: Soft. Bowel sounds are present. No masses. No tenderness. EXTREMITIES: No pedal edema. No calf tenderness. NEUROLOGICAL: Patient is awake, alert and oriented x3. Cranial nerves 2 through 12 are grossly intact. Please refer to medication reconciliation sheet for a list of medications. The impression and plan of care has been dictated by Melissa Diaz, Nurse Practitioner as directed. Dr. Suresh MD I have performed a history and examination and MDM of this patient, discussed the same with the dictator, and agree with the dictator's assessment and plan as written ,documented as a scribe. Based on total visit time, I have performed more than 50% of the visit. Patient Condition at Discharge: Stable Plan - Discharge Summary Discharge Rx Participant: No New Discharge Prescriptions: New Furosemide [Lasix] 20 mg PO DAILY@1600 #30 tab Furosemide [Lasix] 40 mg PO DAILY #30 tab Continue Citalopram Hydrobromide [CeleXA] 20 mg PO HS Spironolactone [Aldactone] 25 mg PO BID Albuterol Nebulized [Ventolin Nebulized] 2.5 mg INHALATION RT-Q6H PRN PRN Reason: Shortness Of Breath Lansoprazole [Prevacid] 30 mg PO DAILY Pramipexole [Mirapex] 0.125 mg PO BID Levothyroxine Sodium [Euthyrox] 50 mcg PO DAILY Ascorbic Acid [Vitamin C] 1,000 mg PO DAILY atenoloL 100 mg PO DAILY PRN PRN Reason: HIGH BLOOD PRESSURE Cholecalciferol [Vitamin D3 (25 Mcg = 1000 Iu)] 25 mcg PO DAILY Metoprolol Tartrate [Lopressor] 50 mg PO BID Acetaminophen Tab [Tylenol] 650 mg PO Q6H PRN PRN Reason: Pain Or Fever > 100.5 Magnesium 250 mg PO DAILY Albuterol Inhaler [Ventolin Hfa Inhaler] 2 puff INHALATION RT-Q6H PRN PRN Reason: Shortness Of Breath Ferrous Sulfate [Iron (65 MG Elemental)] 325 mg PO Q48H Warfarin [Coumadin] 0.5 mg PO HS Discontinued Furosemide [Lasix] 20 mg PO BID Discharge Medication List Citalopram Hydrobromide [CeleXA] 20 mg PO HS 02/28/15 [History] Albuterol Nebulized [Ventolin Nebulized] 2.5 mg INHALATION RT-Q6H PRN 10/22/19 [History] Ascorbic Acid [Vitamin C] 1,000 mg PO DAILY 10/22/19 [History] Lansoprazole [Prevacid] 30 mg PO DAILY 10/22/19 [History] Levothyroxine Sodium [Euthyrox] 50 mcg PO DAILY 10/22/19 [History] Pramipexole [Mirapex] 0.125 mg PO BID 10/22/19 [History] Spironolactone [Aldactone] 25 mg PO BID 10/22/19 [History] atenoloL 100 mg PO DAILY PRN 12/04/19 [History] Acetaminophen Tab [Tylenol] 650 mg PO Q6H PRN 06/18/22 [History] Albuterol Inhaler [Ventolin Hfa Inhaler] 2 puff INHALATION RT-Q6H PRN 06/18/22 [History] Cholecalciferol [Vitamin D3 (25 Mcg = 1000 Iu)] 25 mcg PO DAILY 06/18/22 [History] Ferrous Sulfate [Iron (65 MG Elemental)] 325 mg PO Q48H 06/18/22 [History] Magnesium 250 mg PO DAILY 06/18/22 [History] Metoprolol Tartrate [Lopressor] 50 mg PO BID 06/18/22 [History] Warfarin [Coumadin] 0.5 mg PO HS 06/18/22 [History] Furosemide [Lasix] 20 mg PO DAILY@1600 #30 tab 06/20/22 [Rx] Furosemide [Lasix] 40 mg PO DAILY #30 tab 06/20/22 [Rx] Follow up Appointment(s)/Referral(s): Lucita Webster MD [STAFF PHYSICIAN] - 06/26/22 3:15 pm (Your appointment is at their [place] Office: [address] [place] [address] Ave.) Nan Bro MD [Primary Care Provider] - 06/21/22 2:00 pm (Your appointment is with Mamta Kaur) [facility] Visiting Nurse, [NON-STAFF] - Patient Instructions/Handouts: Heart Failure (DC) Activity/Diet/Wound Care/Special Instructions: Activity Limited until follow-up Follow-up primary care provider on discharge Follow-up with cardiology outpatient Continue using Josh wraps or compression hose to bilateral lower extremities and elevate while at rest Continue heart healthy diet Discharge Disposition: HOME WITH HOME HEALTH SERVICES
[2022-06-21] MEDS ORDERED: WARFARIN 0.5 MG TAB PO SCH (18:00)
== END 2022-06-20 13:11 | disposition home health service (06) | DRG 291 ==
LOC: EC 12:00 → 3SCARD 15:25
PROVIDERS: ADMIT Hospitalist; ATTEND Hospitalist
DX: I11.0 Hypertensive heart disease with heart failure (principal); I50.33 Acute on chronic diastolic (congestive) heart failure; E44.0 Moderate protein-calorie malnutrition; J44.1 Chronic obstructive pulmonary disease with (acute) exacerbation; E87.1 Hypo-osmolality and hyponatremia; E11.9 Type 2 diabetes mellitus without complications; E66.9 Obesity, unspecified; Z68.39 Body mass index [BMI] 39.0-39.9, adult; Z66 Do not resuscitate; I48.0 Paroxysmal atrial fibrillation; G47.33 Obstructive sleep apnea (adult) (pediatric); K21.9 Gastro-esophageal reflux disease without esophagitis; K44.9 Diaphragmatic hernia without obstruction or gangrene; K74.60 Unspecified cirrhosis of liver; K76.9 Liver disease, unspecified; E05.90 Thyrotoxicosis, unspecified without thyrotoxic crisis or storm; N83.209 Unspecified ovarian cyst, unspecified side; F32.A Depression, unspecified; F41.9 Anxiety disorder, unspecified; I25.10 Atherosclerotic heart disease of native coronary artery without angina pectoris; I27.20 Pulmonary hypertension, unspecified; I51.3 Intracardiac thrombosis, not elsewhere classified; Z79.01 Long term (current) use of anticoagulants; Z79.890 Hormone replacement therapy; Z79.899 Other long term (current) drug therapy; Z87.891 Personal history of nicotine dependence; Z88.5 Allergy status to narcotic agent; Z88.0 Allergy status to penicillin; Z88.8 Allergy status to other drugs, medicaments and biological substances
CPT/HCPCS: 36415; 71045; 71046; 80048; 80053; 83036; 83735; 83880; 84100; 84484; 85025; 85027; 85610; 85730; 93005; 94760; 96374; 96376; 99284

== ENCOUNTER 2022-07-08 12:57 | Inpatient (IN) | payer MEDICAID, MEDICARE ==
[2022-07-08] MEDS ORDERED: ALBUTEROL NEBULIZED 2.5 MG/3 ML INHALATION STA (13:18)
[2022-07-08] MEDS ORDERED: IPRATROPIUM 0.5 MG/2.5 ML NEBU INHALATION STA (13:18)
[2022-07-08] MEDS ORDERED: FUROSEMIDE 10 MG/ML 4 ML VIAL IV STA (13:18)
--- NOTE | 2022-07-08 13:22 | ED ---
General Adult HPI - General Chief complaint: Shortness of Breath Stated complaint: KYLE Time Seen by Provider: 07/08/22 13:00 Source: patient, RN notes reviewed, old records reviewed Mode of arrival: wheelchair Limitations: physical limitation - History of Present Illness Initial comments: This is a 77-year-old female presents emergency Department complaining of difficulty breathing. Patient states that much worse starting yesterday. Patient states she has a history of congestive heart failure as well as COPD. Patient states she has been holding on quite a bit of fluid but she also can hear herself wheezing. Patient denies any fever chills per patient has any palpitations. Patient denies any chest pain. Patient denies any abdominal pain patient denies nausea or vomiting. Patient denies any calf pain but she does states she has quite a bit of increased fluid in her legs and states she's had a 3 pound weight gain. Patient states lying down patient breathing considerably worse. - Related Data Home Medications Medication Instructions Recorded Confirmed Citalopram Hydrobromide [CeleXA] 20 mg PO HS 02/28/15 07/08/22 Albuterol Nebulized [Ventolin 2.5 mg INHALATION RT-Q6H PRN 10/22/19 07/08/22 Nebulized] Ascorbic Acid [Vitamin C] 1,000 mg PO DAILY 10/22/19 07/08/22 Lansoprazole [Prevacid] 30 mg PO DAILY 10/22/19 07/08/22 Levothyroxine Sodium [Euthyrox] 50 mcg PO DAILY 10/22/19 07/08/22 Pramipexole [Mirapex] 0.125 mg PO BID 10/22/19 07/08/22 Spironolactone [Aldactone] 25 mg PO BID 10/22/19 07/08/22 atenoloL 100 mg PO DAILY PRN 12/04/19 07/08/22 Acetaminophen Tab [Tylenol] 650 mg PO Q6H PRN 06/18/22 07/08/22 Albuterol Inhaler [Ventolin Hfa 2 puff INHALATION RT-Q6H PRN 06/18/22 07/08/22 Inhaler] Cholecalciferol [Vitamin D3 (25 25 mcg PO DAILY 06/18/22 07/08/22 Mcg = 1000 Iu)] Ferrous Sulfate [Iron (65 MG 325 mg PO Q48H 06/18/22 07/08/22 Elemental)] Magnesium 250 mg PO DAILY 06/18/22 07/08/22 Metoprolol Tartrate [Lopressor] 50 mg PO BID 06/18/22 07/08/22 Warfarin [Coumadin] 0.5 mg PO SUMOTUWETHFR 06/18/22 07/08/22 Furosemide [Lasix] 40 mg PO BID@0900,1600 07/08/22 07/08/22 Warfarin [Coumadin] 1 mg PO SA 07/08/22 07/08/22 Allergies Allergy/AdvReac Type Severity Reaction Status Date / Time adhesive tape Allergy blisters Verified 07/08/22 13:39 morphine Allergy Vomiting Verified 07/08/22 13:39 Penicillins Allergy numbness Verified 07/08/22 13:39 of lips, hands , feet prochlorperazine Allergy Unknown Verified 07/08/22 13:39 [From Compazine] prochlorperazine edisylate Allergy Unknown Verified 07/08/22 13:39 [From Compazine] prochlorperazine maleate Allergy Unknown Verified 07/08/22 13:39 [From Compazine] esomeprazole magnesium AdvReac Severe BURNING Verified 07/08/22 13:39 [From Nexium] PAIN fluticasone AdvReac Unknown Verified 07/08/22 13:39 [From Advair Diskus] salmeterol AdvReac Unknown Verified 07/08/22 13:39 [From Advair Diskus] Review of Systems ROS Statement: Those systems with pertinent positive or pertinent negative responses have been documented in the HPI. ROS Other: All systems not noted in ROS Statement are negative. Past Medical History Past Medical History: Atrial Fibrillation, Asthma, Heart Failure, COPD, Diabetes Mellitus, GERD/Reflux, Hypertension, Liver Disease, Osteoarthritis (OA), Supraventricular Tachycardia (SVT), Thyroid Disorder Additional Past Medical History / Comment(s): SEE CARDIOLOGY HISTORY PROVIDED BY DR. ELVIRA STRICKLAND. IP @ [facility] FROM [id number] FOR PULMONARY EDEMA, CHF, CELLULITIS. INCONTINENT/USES PADS. O2 AT HOME? DYSPHAGIA FROM GERD. hx migraines. LEFT "eye stroke". Hiatal hernia. NON ALCHOLIC CIRRHOSIS, May 2022- pt had blood clot on heart was supposed to have Watchman put in at [facility], December 2021-brain bleed History of Any Multi-Drug Resistant Organisms: None Reported Past Surgical History: Breast Surgery, Cholecystectomy, Hysterectomy Additional Past Surgical History / Comment(s): Rectocele. Breast biopsies. Ambrose fundoplication. Past Anesthesia/Blood Transfusion Reactions: Postoperative Nausea & Vomiting (PONV) Past Psychological History: Anxiety, Depression Smoking Status: Former smoker - Past Family History Mother Family Medical History: Cancer Additional Family Medical History / Comment(s): lung Father Family Medical History: Cancer Additional Family Medical History / Comment(s): lung Brother(s) Family Medical History: Cancer, Liver Disease Additional Family Medical History / Comment(s): colon General Exam - General Exam Comments Initial Comments: GENERAL: Patient is well-developed and well-nourished. Patient is nontoxic and well- hydrated and is in moderate distress. ENT: Neck is soft and supple. No significant lymphadenopathy is noted. Oropharynx is clear. Moist mucous membranes. Neck has full range of motion without eliciting any pain. EYES: The sclera were anicteric and conjunctiva were pink and moist. Extraocular movements were intact and pupils were equal round and reactive to light. Eyelids were unremarkable. PULMONARY: Patient has diffuse expiratory wheezing as well as some crackles in the bases. CARDIOVASCULAR: There is a regular rate and rhythm without any murmurs gallops or rubs. ABDOMEN: Soft and nontender with normal bowel sounds. No palpable organomegaly was noted. There is no palpable pulsatile mass. SKIN: Skin is clear with no lesions or rashes and otherwise unremarkable. NEUROLOGIC: Patient is alert and oriented x3. Cranial nerves II through XII are grossly intact. Motor and sensory are also intact. Normal speech, volume and content. Symmetrical smile. MUSCULOSKELETAL: Normal extremities with adequate strength and full range of motion. 2+ edema LYMPHATICS: No significant lymphadenopathy is noted PSYCHIATRIC: Normal psychiatric evaluation. Limitations: physical limitation Course Vital Signs 07/08/22 13:00 Temperature 98.6 F Pulse Rate 75 Respiratory 16 Rate Blood Pressure 128/71 O2 Sat by Pulse 95 Oximetry Medical Decision Making - Medical Decision Making EKG as interpreted by myself shows a sinus rhythm at 71 bpm AL interval is 148 QRSs 83 Q-T intervals 388 QTC is 411. Patient's EKG shows no ST segment elevation or depression. Was pt. sent in by a medical professional or institution (Dr., PA, STOCK ROOM MANAGER, urgent care, hospital, or group home...) When possible be specific @ -No Did you speak to anyone other than the patient for history (EMS, parent, family, police, friend...)? What history was obtained from this source @ -No Did you review nursing and triage notes (agree or disagree)? Why? @ -I reviewed and agree with nursing and triage notes Were old charts reviewed (outside hosp., previous admission, EMS record, old EKG, old radiological studies, urgent care reports/EKG's, group home records)? Report findings @ -I reviewed prior labs in prior charts.. Differential Diagnosis (chest pain, altered mental status, abdominal pain women, abdominal pain men, vaginal bleeding, weakness, fever, dyspnea, syncope, headache, dizziness, GI bleed, back pain, seizure, CVA, palpatations, mental health, musculoskeletal)? @ -Differential Dyspnea: Coronary syndrome, arrhythmia, tamponade, asthma, COPD, pulmonary embolism, pneumonia, pneumothorax, pulmonary effusion, anaphylaxis, diabetic ketoacidosis, flailed chest, pulmonary contusion, diaphragmatic rupture, anemia, neuromuscular, this is not meant to be an all-inclusive list. EKG interpreted by me (3pts min.). @ -As above X-rays interpreted by me (1pt min.). @ -Chest x-ray was interpreted by myself shows signs of pulmonary edema CT interpreted by me (1pt min.). @ -None done U/S interpreted by me (1pt. min.). @ -None done What testing was considered but not performed or refused? (CT, X-rays, U/S, labs)? Why? @ -None What meds were considered but not given or refused? Why? @ -None Did you discuss the management of the patient with other professionals (professionals i.e. GERRY Hernandez, STOCK ROOM MANAGER, lab, RT, psych nurse, addiction social worker, transportation associate, teacher, staff mine warfare officer, case manager specialist)? Give summary @ -I spoke with the [facility] hospitalist agreed to admit the patient for the patient remaining orders Was smoking cessation discussed for >3mins.? @ -No Was critical care preformed (if so, how long)? @ -35 minutes Were there social determinants of health that impacted care today? How? (Homelessness, low income, unemployed, alcoholism, drug addiction, transportation, low edu. Level, literacy, decrease access to med. care, usp, rehab)? @ -No Was there de-escalation of care discussed even if they declined (Discuss DNR or withdrawal of care, Hospice)? DNR status @ -No What co-morbidities impacted this encounter? (DM, HTN, Smoking, COPD, CAD, Cancer, CVA, ARF, Chemo, Hep., AIDS, mental health diagnosis, sleep apnea, morbid obesity)? @ -None Was patient admitted / discharged? Hospital course, mention meds given and route, prescriptions, significant lab abnormalities, going to OR and other pertinent info. @ -Was wheezing diffusely and quite a bit of increased edema to her legs and she did have crackles in her bases. Chest x-ray showed pulmonary edema. Patient received a breathing treatment while in the emergency department and then received a second one. Patient also got Solu-Medrol as well as Lasix for the edema. Patient was reevaluated and feeling better not could not go home. I spoke with [facility] hospitalist agreed to admit the patient admitted the patient wrote admitting orders. Undiagnosed new problem with uncertain prognosis? @ -No Drug Therapy requiring intensive monitoring for toxicity (Heparin, Nitro, Insulin, Cardizem)? @ -No Were any procedures done? @ -No Diagnosis/symptom? @ -Pulmonary edema Acute, or Chronic, or Acute on Chronic? @ -Acute Uncomplicated (without systemic symptoms) or Complicated (systemic symptoms)? @ -Complicated Side effects of treatment? @ -No Exacerbation, Progression, or Severe Exacerbation? @ -No Poses a threat to life or bodily function? How? (Chest pain, [place], [place], pneumonia, PE, COPD, DKA, ARF, appy, cholecystitis, CVA, Diverticulitis, Homicidal, Suicidal, threat to staff... and all critical care pts) @ -Yes this is threat to lead to hypoxia which can lead to end organ dysfunction Diagnosis/symptom? @ -COPD exacerbation Acute, or Chronic, or Acute on Chronic? @ -Acute Uncomplicated (without systemic symptoms) or Complicated (systemic symptoms)? @ -Complicated Side effects of treatment? @ -none Exacerbation, Progression, or Severe Exacerbation] @ -no Poses a threat to life or bodily function? @ -yes - Lab Data Result diagrams: 07/08/22 13:26 07/08/22 13:26 Lab Results 07/08/22 07/08/22 07/08/22 Range/Units 13:26 13:26 13:26 WBC 3.9 (3.8-10.6) k/uL RBC 3.67 L (3.80-5.40) m/uL Hgb 12.0 (11.4-16.0) gm/dL Hct 37.0 (34.0-46.0) % MCV 101.0 H (80.0-100.0) fL MCH 32.8 (25.0-35.0) pg MCHC 32.5 (31.0-37.0) g/dL RDW 13.9 (11.5-15.5) % Plt Count 145 L D (150-450) k/uL MPV 8.5 Neutrophils % 70 % Lymphocytes % 17 % Monocytes % 8 % Eosinophils % 2 % Basophils % 1 % Neutrophils # 2.7 (1.3-7.7) k/uL Lymphocytes # 0.7 L (1.0-4.8) k/uL Monocytes # 0.3 (0-1.0) k/uL Eosinophils # 0.1 (0-0.7) k/uL Basophils # 0.0 (0-0.2) k/uL Macrocytosis Slight PT 17.5 H (9.0-12.0) sec INR 1.8 H (<1.2) APTT 28.7 (22.0-30.0) sec Sodium 137 (137-145) mmol/L Potassium 4.2 (3.5-5.1) mmol/L Chloride 104 (98-107) mmol/L Carbon Dioxide 31 H (22-30) mmol/L Anion Gap 2 mmol/L BUN 23 H (7-17) mg/dL Creatinine 0.86 (0.52-1.04) mg/dL Est GFR (CKD-EPI)AfAm 75 (>60 ml/min/1.73 sqM) Est GFR (CKD-EPI)NonAf 65 (>60 ml/min/1.73 sqM) Glucose 113 H (74-99) mg/dL Plasma Lactic Acid Kade (0.7-2.0) mmol/L Calcium 8.0 L (8.4-10.2) mg/dL Magnesium 2.0 (1.6-2.3) mg/dL Total Bilirubin 2.0 H (0.2-1.3) mg/dL AST 65 H (14-36) U/L ALT 34 (4-34) U/L Alkaline Phosphatase 186 H (38-126) U/L Troponin I (0.000-0.034) ng/mL Total Protein 5.0 L (6.3-8.2) g/dL Albumin 2.5 L (3.5-5.0) g/dL 07/08/22 07/08/22 Range/Units 13:26 13:26 WBC (3.8-10.6) k/uL RBC (3.80-5.40) m/uL Hgb (11.4-16.0) gm/dL Hct (34.0-46.0) % MCV (80.0-100.0) fL MCH (25.0-35.0) pg MCHC (31.0-37.0) g/dL RDW (11.5-15.5) % Plt Count (150-450) k/uL MPV Neutrophils % % Lymphocytes % % Monocytes % % Eosinophils % % Basophils % % Neutrophils # (1.3-7.7) k/uL Lymphocytes # (1.0-4.8) k/uL Monocytes # (0-1.0) k/uL Eosinophils # (0-0.7) k/uL Basophils # (0-0.2) k/uL Macrocytosis PT (9.0-12.0) sec INR (<1.2) APTT (22.0-30.0) sec Sodium (137-145) mmol/L Potassium (3.5-5.1) mmol/L Chloride (98-107) mmol/L Carbon Dioxide (22-30) mmol/L Anion Gap mmol/L BUN (7-17) mg/dL Creatinine (0.52-1.04) mg/dL Est GFR (CKD-EPI)AfAm (>60 ml/min/1.73 sqM) Est GFR (CKD-EPI)NonAf (>60 ml/min/1.73 sqM) Glucose (74-99) mg/dL Plasma Lactic Acid Kade 1.5 (0.7-2.0) mmol/L Calcium (8.4-10.2) mg/dL Magnesium (1.6-2.3) mg/dL Total Bilirubin (0.2-1.3) mg/dL AST (14-36) U/L ALT (4-34) U/L Alkaline Phosphatase (38-126) U/L Troponin I 0.033 (0.000-0.034) ng/mL Total Protein (6.3-8.2) g/dL Albumin (3.5-5.0) g/dL Critical Care Time Critical Care Time: Yes Total Critical Care Time: 35 Disposition Clinical Impression: Acute pulmonary edema, COPD with acute exacerbation Disposition: ADMITTED IP TO THIS HOSP Referrals: Nan Bro MD [Primary Care Provider] - 1-2 days Time of Disposition: 14:14
[2022-07-08 13:41] LABS: Basophils % (A) 1 %; Eosinophils # (A) 0.1 k/uL (0-0.7); Eosinophils % (A) 2 %; Lymphocytes # (A) 0.7 k/uL (1.0-4.8); Lymphocytes % (A) 17 %; MCH 32.8 pg (25.0-35.0); MCHC 32.5 g/dL (31.0-37.0); Macrocytosis Slight; Mean Platelet Volume 8.5; Monocytes # (A) 0.3 k/uL (0-1.0); Monocytes % (A) 8 %; Neutrophils # (A) 2.7 k/uL (1.3-7.7); Neutrophils % (A) 70 %; Platelet Count 145 k/uL (150-450); RBC 3.67 m/uL (3.80-5.40); RDW 13.9 % (11.5-15.5); WBC 3.9 k/uL (3.8-10.6)
[2022-07-08 13:52] LABS: INR 1.8 (<1.2); Partial Thromboplastin Time 28.7 sec (22.0-30.0); Prothrombin Time 17.5 sec (9.0-12.0)
[2022-07-08 13:53] LABS: Albumin 2.5 g/dL (3.5-5.0); Potassium 4.2 mmol/L (3.5-5.1)
--- NOTE | 2022-07-08 13:56 | XR ---
EXAMINATION TYPE: XR chest 2V DATE OF EXAM: 07/08/2022 COMPARISON: Difficulty breathing HISTORY: 06/20/2022 TECHNIQUE: Frontal and lateral views of the chest are obtained. FINDINGS: There are mild diffuse increased interstitial opacities which could reflect interstitial inflammation or edema. The heart is slightly prominent in size findings raise the question of mild CHF. There is no airspace opacity. There is no pleural effusion or pneumothorax. The osseous structures ar e intact IMPRESSION: Mild cardiomegaly with mild diffuse interstitial opacity findings which could reflect mild CHF. Clini carly correlation is recommended.
[2022-07-08] MEDS ORDERED: methylPREDNISolone SOD SUCCI 125 MG/2 ML VIAL IV STA (14:01)
[2022-07-08] MEDS ORDERED: NALOXONE 0.4 MG/ML 1 ML VIAL IVP PRN (14:14)
[2022-07-08] MEDS: AZITHROMYCIN 500 MG TAB PO SCH (15:11)
[2022-07-08] MEDS ORDERED: atenoloL 50 MG TAB PO PRN (16:06)
[2022-07-08 16:16] LABS: Glucose,Whole Blood 128 mg/dL (70-110)
[2022-07-08] MEDS ORDERED: FORMOTEROL FUMARATE 20 MCG/2 ML NEBU INHALATION SCH (16:41)
[2022-07-08] MEDS ORDERED: DEXTROSE 50% SYRINGE 50 ML IVP PRN ×2 (16:41)
[2022-07-08] MEDS: BUDESONIDE 1 MG/2 ML NEBU INHALATION SCH (17:01)
[2022-07-08] MEDS: INSULIN ASPART (NovoLOG) 100 UNIT/ML VIAL SQ SCH ×2 (17:12→20:56)
[2022-07-08] MEDS: FUROSEMIDE 10 MG/ML 4 ML VIAL IV SCH (17:21)
[2022-07-08] MEDS: methylPREDNISolone SOD SUCCI 125 MG/2 ML VIAL IV SCH (17:21)
[2022-07-08] MEDS ORDERED: WARFARIN 0.5 MG TAB PO ONE (18:00)
[2022-07-08 18:21] LABS: INR 1.6 (<1.2); Prothrombin Time 16.3 sec (9.0-12.0)
[2022-07-08 18:58] LABS: Appearance,Urine Clear (Clear); Bilirubin,Urine Negative (Negative); Blood,Urine Negative (Negative); Color,Urine Light Yellow; Glucose,Urine (UA) Negative (Negative); Ketones,Urine Negative (Negative); Leukocyte Esterase,Urine Negative (Negative); Nitrite,Urine Negative (Negative); Protein,Urine Negative (Negative); Specific Gravity,Urine 1.008 (1.001-1.035); Urobilinogen,Urine <2.0 mg/dL (<2.0)
[2022-07-08 20:05] LABS: Glucose,Whole Blood 250 mg/dL (70-110)
--- NOTE | 2022-07-08 20:33 | HP ---
HISTORY AND PHYSICAL CHIEF COMPLAINT: Shortness of breath. HISTORY OF PRESENT ILLNESS: This is a 77-year-old woman with a past medical history of multiple medical problems, COPD, was getting progressively short of breath for past several days. The patient came to [facility]. Initially, the patient was suspected to have some CHF also. The patient was admitted for further evaluation and treatment. There is no history of any fever, rigors, or chills. NT-proBNP is elevated to 1700. Perihilar infiltrate is also suspected. PAST MEDICAL HISTORY: Reviewed, include COPD. Rest of the history and rest of the chart is also reviewed. HOME MEDICATIONS: Reviewed include atenolol. Dose and rest of the medications reviewed. ALLERGIES: Morphine. Rest of the allergies are noted. FAMILY HISTORY: History of lung cancer in the family. SOCIAL HISTORY: Previous history of smoking. REVIEW OF SYSTEMS: A 14-point review is negative except as mentioned earlier. PHYSICAL EXAMINATION: VITAL SIGNS: Pulse 82, blood pressure 130/62, respirations 25. HEENT: Conjunctivae normal. NECK: No JVD. CARDIOVASCULAR: S1, S2 muffled. RESPIRATIONS: Breath sounds diminished at the bases. Bilateral scattered rhonchi and expiratory wheezing and crackles. ABDOMEN: Soft, nontender. LEGS: Minimal leg edema. NERVOUS SYSTEM: No focal deficits. SKIN: No ulcer, rash, bleeding. JOINTS: No active arthropathy. LABORATORY DATA: Reviewed. Chest x-ray reviewed personally. ASSESSMENT: 1. Chronic obstructive pulmonary disease acute exacerbation. 2. Possible congestive heart failure acute exacerbation. 3. Possible perihilar infiltrate, rule out pneumonia. 4. History of asthma. 5. History of atrial fibrillation. 6. Diabetes mellitus, type 2. 7. Hypertension. 8. Multiple medical issues. RECOMMENDATIONS AND DISCUSSION: This is a 77-year-old woman, who presented with multiple complex medical issues. We will monitor the patient closely. We will initiate intensive bronchodilator treatment and also Pulmonary consultation. I would also recommend a full cardiac workup also because of the suspicion of CHF. A 2D echo with Doppler also will be done. Empiric antibiotics also will be initiated, but we will check procalcitonin and cultures. If the cultures are negative and procalcitonin is normal, antibiotics may be stopped. Otherwise, I would also recommend a 2D echo with Doppler and also viral cultures including COVID-19. Overall prognosis extremely guarded because of multiple complex medical issues. Home medications will be continued once they are confirmed and discussed with the patient at length. Further recommendations to follow. MMODL / IJN: [id number] /
[2022-07-08] MEDS: ALBUTEROL NEBULIZED 2.5 MG/3 ML INHALATION SCH (20:52)
[2022-07-08] MEDS: IPRATROPIUM 0.5 MG/2.5 ML NEBU INHALATION SCH (20:52)
[2022-07-08] MEDS: CITALOPRAM HYDROBROMIDE 20 MG TAB PO SCH (20:56)
[2022-07-08] MEDS: METOPROLOL TARTRATE 50 MG TAB PO SCH (20:56)
[2022-07-08] MEDS: SPIRONOLACTONE 25 MG TAB PO SCH (20:56)
[2022-07-09] MEDS: methylPREDNISolone SOD SUCCI 125 MG/2 ML VIAL IV SCH ×5 (00:20→23:03)
[2022-07-09] MEDS: FUROSEMIDE 10 MG/ML 4 ML VIAL IV SCH ×4 (00:20→17:15)
[2022-07-09] MEDS: ACETAMINOPHEN TAB 325 MG TAB PO PRN ×2 (00:22→20:49)
[2022-07-09] MEDS ORDERED: ALBUTEROL NEBULIZED 2.5 MG/3 ML INHALATION PRN (00:37)
--- NOTE | 2022-07-09 01:33 | P.CNPUL ---
History of Present Illness Consult date: 07/09/22 Requesting physician: Tyrel Trinidad Reason for consult: asthma Chief complaint: Shortness of breath History of present illness: I'm seeing this patient in new consultation today 07/09/2022 for progressive shortness of breath starting yesterday. This is a 77-year-old white female with a significant medical history for congestive heart failure, moderate persistent asthma, atrial fibrillation, left atrial appendage thrombus, diabetes mellitus type 2, hypertension, hypothyroidism, nonalcoholic cirrhosis of the liver, brain bleed, mild obstructive sleep apnea, remote history of smoking 36 years ago. Patient presented yesterday for difficulty breathing that started on Saturday. Patient reports shortness breath especially when exerting herself or lying flat, wheezing, fluid retention in her lower extremities, weight gain of about 3 pounds, and heart palpitations. She also reports some upper respiratory tract infection symptoms such as runny nose, cough with brown sputum production, and chills. She denies any subjective fevers or chest pain. Patient does follow with Dr. Gupta in the office for management of her moderate persistent asthma and mild obstructive sleep apnea. Patient patient states that she takes albuterol and Symbicort on an outpatient basis. She also follows with a health physicist from [place], and has a planned LENNY and watchman procedure this Saturday. Patient is currently resting in bed, on AIRVO 35 L and 30% high flow cannula, in no acute distress. Chest x-ray on arrival showed mild cardiomegaly with mild diffuse interstitial opacities. No obvious focal consolidation. NT proBNP was mildly elevated at 1700. CBC on arrival shows a non-elevated WBC c ount of 3.9, hemoglobin 12, hematocrit 37, platelets 145,000. Patient's INR on arrival was sub-therapeutic at 1.6. Patient does take Coumadin on outpatient basis. Patient has reported some minimal rectal bleeding on and Saturday of this previous week. No bleeding since reported. BMP shows a sodium 137, potassium 4.2, chloride 104, serum CO2 31, BUN 23, creatinine 0.86, glucose 113. Lactic acid 1.5. LFTs mildly elevated. Negative for influenza, RSV, COVID-19. Pro-calcitonin levels pending. Patient is currently receiving bronchodilators and IV Solu-Medrol. She is also receiving empiric antibiotics for community associated pneumonia. Remains afebrile. Vital signs are stable. Review of Systems REVIEW OF SYSTEMS: CONSTITUTIONAL: Admits weight gain over the proximal 3 pounds over the last 2 days EYES: Denies change in vision. EARS, NOSE, MOUTH, THROAT: Denies headaches, denies sore throat. CARDIOVASCULAR: Denies see HPI RESPIRATORY: See HPI GASTROINTESTINAL: Denies change in appetite, abdominal pain, nausea and vomiting, or diarrhea GENITOURINARY: Denies hematuria, denies infections. MUSKULOSKELETAL: Denies pain, admits lower extremity swelling INTEGUMENTARY: Denies rash, denies eczema. NEUROLOGICAL: Denies recent memory loss, no recent seizure activity. PSYCHIATRIC: Denies anxiety, denies depression. HEMATOLOGIC/LYMPHATIC: Denies anemia, denies enlarged lymph node Past Medical History Past Medical History: Atrial Fibrillation, Asthma, Heart Failure, COPD, Diabetes Mellitus, GERD/Reflux, Hypertension, Liver Disease, Osteoarthritis (OA), Supraventricular Tachycardia (SVT), Thyroid Disorder Additional Past Medical History / Comment(s): SEE CARDIOLOGY HISTORY PROVIDED BY DR. ELVIRA STRICKLAND. IP @ [facility] FROM [id number] FOR PULMONARY EDEMA, CHF, CELLULITIS. INCONTINENT/USES PADS. O2 AT HOME? DYSPHAGIA FROM GERD. hx migraines. LEFT "eye stroke". Hiatal hernia. NON ALCHOLIC CIRRHOSIS, May 2022- pt had blood clot on heart was supposed to have Watchman put in at [facility], December 2021-brain bleed History of Any Multi-Drug Resistant Organisms: None Reported Past Surgical History: Breast Surgery, Cholecystectomy, Hysterectomy Additional Past Surgical History / Comment(s): Rectocele. Breast biopsies. Ambrose fundoplication. Past Anesthesia/Blood Transfusion Reactions: Postoperative Nausea & Vomiting (PONV) Past Psychological History: Anxiety, Depression Additional Psychological History / Comment(s): pt states she does have issues with depression but denies any suicidal thoughts Smoking Status: Former smoker Past Alcohol Use History: None Reported Additional Past Alcohol Use History / Comment(s): quit smoking 1986, smoked for 25 yrs- < 1 PPD Past Drug Use History: None Reported - Past Family History Mother Family Medical History: Cancer Additional Family Medical History / Comment(s): lung Father Family Medical History: Cancer Additional Family Medical History / Comment(s): lung Brother(s) Family Medical History: Cancer, Liver Disease Additional Family Medical History / Comment(s): colon Medications and Allergies Home Medications Medication Instructions Recorded Confirmed Type Citalopram Hydrobromide [CeleXA] 20 mg PO HS 02/28/15 07/08/22 History Albuterol Nebulized [Ventolin 2.5 mg INHALATION RT-Q6H PRN 10/22/19 07/08/22 History Nebulized] Ascorbic Acid [Vitamin C] 1,000 mg PO DAILY 10/22/19 07/08/22 History Lansoprazole [Prevacid] 30 mg PO DAILY 10/22/19 07/08/22 History Levothyroxine Sodium [Euthyrox] 50 mcg PO DAILY 10/22/19 07/08/22 History Pramipexole [Mirapex] 0.125 mg PO BID 10/22/19 07/08/22 History Spironolactone [Aldactone] 25 mg PO BID 10/22/19 07/08/22 History atenoloL 100 mg PO DAILY PRN 12/04/19 07/08/22 History Acetaminophen Tab [Tylenol] 650 mg PO Q6H PRN 06/18/22 07/08/22 History Albuterol Inhaler [Ventolin Hfa 2 puff INHALATION RT-Q6H PRN 06/18/22 07/08/22 History Inhaler] Cholecalciferol [Vitamin D3 (25 25 mcg PO DAILY 06/18/22 07/08/22 History Mcg = 1000 Iu)] Ferrous Sulfate [Iron (65 MG 325 mg PO Q48H 06/18/22 07/08/22 History Elemental)] Magnesium 250 mg PO DAILY 06/18/22 07/08/22 History Metoprolol Tartrate [Lopressor] 50 mg PO BID 06/18/22 07/08/22 History Warfarin [Coumadin] 0.5 mg PO SUMOTUWETHFR 06/18/22 07/08/22 History Furosemide [Lasix] 40 mg PO BID@0900,1600 07/08/22 07/08/22 History Warfarin [Coumadin] 1 mg PO SA 07/08/22 07/08/22 History Allergies Allergy/AdvReac Type Severity Reaction Status Date / Time adhesive tape Allergy blisters Verified 07/08/22 13:39 morphine Allergy Vomiting Verified 07/08/22 13:39 Penicillins Allergy numbness Verified 07/08/22 13:39 of lips, hands , feet prochlorperazine Allergy Unknown Verified 07/08/22 13:39 [From Compazine] prochlorperazine edisylate Allergy Unknown Verified 07/08/22 13:39 [From Compazine] prochlorperazine maleate Allergy Unknown Verified 07/08/22 13:39 [From Compazine] esomeprazole magnesium AdvReac Severe BURNING Verified 07/08/22 13:39 [From Nexium] PAIN fluticasone AdvReac Unknown Verified 07/08/22 13:39 [From Advair Diskus] salmeterol AdvReac Unknown Verified 07/08/22 13:39 [From Advair Diskus] Physical Exam Vitals: Vital Signs Temp Pulse Pulse Resp BP BP Pulse Ox 07/08/22 23:43 96 07/08/22 21:04 78 07/08/22 20:54 80 95 07/08/22 16:24 98.5 F 82 25 H 130/63 96 07/08/22 15:47 82 18 117/80 96 07/08/22 15:33 99 07/08/22 15:12 84 18 115/53 96 07/08/22 14:34 74 07/08/22 14:10 73 30 H 116/62 94 L 07/08/22 14:03 70 07/08/22 13:00 98.6 F 75 16 128/71 95 FiO2 07/08/22 23:43 30 07/08/22 21:04 07/08/22 20:54 30 07/08/22 16:24 35 07/08/22 15:47 07/08/22 15:33 30 07/08/22 15:12 07/08/22 14:34 07/08/22 14:10 07/08/22 14:03 07/08/22 13:00 Intake and Output 07/08/22 07/08/22 07/09/22 14:59 22:59 06:59 Intake Total 200 Output Total 250 Balance 200 -250 Intake: Oral 200 Output: Urine 250 Other: Voiding Method External Catheter Weight 103.873 kg 103.873 kg GENERAL EXAM: Alert, 77-year-old obese female, comfortable in no apparent dis tress. HEAD: Normocephalic and atraumatic EYES: Normal reaction of pupils, equal size. NOSE: Clear with pink turbinates. THROAT: No erythema or exudates. NECK: No masses, no JVD. CHEST: No chest wall deformity. LUNGS: Equal air entry with diffuse bilateral expiratory wheezing and rhonchi. no crackles or focal dullness. On AIRVO 35 L and 30%. No conversational dyspnea or accessory muscle use.. CVS: S1 and S2 normal with no audible murmur, regular rhythm. No extra heart sounds ABDOMEN: Distended abdomen with hepatomegaly, active bowel sounds, no guarding or rigidity. SPINE: No scoliosis or deformity SKIN: No rashes CENTRAL NERVOUS SYSTEM: No focal deficits, tone is normal in all 4 extremities. EXTREMITIES: There is 3+ bilateral lower extremity pitting edema. No clubbing, or cyanosis. Peripheral pulses are intact. Results - Laboratory Findings CBC and BMP: 07/08/22 13:26 07/08/22 13:26 PT/INR, D-dimer PT 16.3 sec (9.0-12.0) H 07/08/22 17:08 INR 1.6 (<1.2) H 07/08/22 17:08 Abnormal lab findings: Abnormal Labs 07/08/22 07/08/22 07/08/22 13:26 13:26 13:26 RBC 3.67 L MCV 101.0 H Plt Count 145 L D Lymphocytes # 0.7 L PT 17.5 H INR 1.8 H Carbon Dioxide 31 H BUN 23 H Glucose 113 H POC Glucose (mg/dL) Calcium 8.0 L Total Bilirubin 2.0 H AST 65 H Alkaline Phosphatase 186 H Total Protein 5.0 L Albumin 2.5 L 07/08/22 07/08/22 07/08/22 16:14 17:08 20:03 RBC MCV Plt Count Lymphocytes # PT 16.3 H INR 1.6 H Carbon Dioxide BUN Glucose POC Glucose (mg/dL) 128 H 250 H Calcium Total Bilirubin AST Alkaline Phosphatase Total Protein Albumin - Diagnostic Findings Chest x-ray: image reviewed Assessment and Plan Assessment: Acute exacerbation of patient's moderate persistent asthma possibly related to a mild exacerbation of diastolic congestive heart failure and suspected tracheobronchitis. Chest x-ray on arrival shows mild cardiomegaly with mild diffuse interstitial opacities findings which could reflect mild to CHF. No obvious focal consolidation. History of paroxysmal atrial fibrillation, currently in normal sinus rhythm. Anticoagulated on Coumadin, INR was subtherapeutic on arrival 1.6. Patient reportedly does have a left atrial appendage thrombus. She is supposedly scheduled for a Watchman procedure and LENNY with her health physicist out of [place], Dr. Perkins this Saturday. History of subdural hematoma January 2022. Most recent Brain CT without contrast 04/11/2022 showed an acute subdural hematoma along the left cerebral convexity measuring a maximum thickness of 9 mm in the area of previous mixed chronicity subdural hematoma. minimal or no significant midline shift possibly measuring 1 mm from left to right. Stable from prior examination on 02/15/2022. Hemorrhage along the cerebral tentorium has resolved. Small subdural hematoma along the right cerebral convexity within the frontal lobe has resolved. Patient reports minimal rectal bleeding on and Saturday this previous week. The bleeding has since stopped. Diabetes mellitus type 2 Hypertension Morbid obesity Nonalcoholic steatohepatitis GERD without esophagitis post Matthew fundoplication Hypothyroidism Mild obstructive sleep apnea currently not maintained on CPAP Right ovarian mass currently under investigation on an outpatient basis. Most recent abdominal and pelvis CT with contrast on October, showed a right ovarian complex mass measuring 5.8 x 4.8 x 8.4 cm with internal septation and heterogeneity Ex-smoker, remote history of smoking 36 years ago Plan: Patient's medications, labs, chest x-ray reviewed Continue with diuresis Repeat chest x-ray in the morning Check pro calcitonin level and manage antibiotics accordingly Negative for influenza, RSV, COVID-19 Continue bronchodilators Start the patient on budesonide Continue IV Solu-Medrol Continue supplemental oxygen in the form of high flow cannula AIRVO device. Patient is a DO NOT RESUSCITATE and DO NOT INTUBATE Recheck PT/INR in the morning Check fecal occult Protonix for GI prophylaxis Repeat labs in the morning Prognosis is guarded We will continue to follow I have personally seen and examined the patient, performed the documentation and the assessment and plan as written. Number of minutes spent on the visit:20 Time with Patient: Greater than 30
[2022-07-09] MEDS: PRAMIPEXOLE 0.125 MG TAB PO SCH ×3 (03:12→20:42)
[2022-07-09 06:16] LABS: Glucose,Whole Blood 223 mg/dL (70-110)
[2022-07-09] MEDS: INSULIN ASPART (NovoLOG) 100 UNIT/ML VIAL SQ SCH ×4 (06:34→20:42)
[2022-07-09] MEDS: LEVOTHYROXINE 50 MCG TAB PO SCH (06:34)
[2022-07-09] MEDS: PANTOPRAZOLE 40 MG TABLET PO SCH (06:34)
[2022-07-09 06:55] LABS: Basophils % (A) 0 %; Eosinophils % (A) 0 %; HCT 37.5 % (34.0-46.0); HGB 12.2 gm/dL (11.4-16.0); Lymphocytes # (A) 0.4 k/uL (1.0-4.8); Lymphocytes % (A) 10 %; MCH 33.3 pg (25.0-35.0); MCHC 32.7 g/dL (31.0-37.0); MCV 101.9 fL (80.0-100.0); Macrocytosis Slight; Mean Platelet Volume 8.8; Monocytes # (A) 0.1 k/uL (0-1.0); Monocytes % (A) 2 %; Neutrophils # (A) 3.8 k/uL (1.3-7.7); Neutrophils % (A) 88 %; Platelet Count 136 k/uL (150-450); RBC 3.68 m/uL (3.80-5.40); RDW 13.7 % (11.5-15.5); WBC 4.3 k/uL (3.8-10.6)
[2022-07-09 07:12] LABS: INR 1.7 (<1.2); Prothrombin Time 17.3 sec (9.0-12.0)
[2022-07-09 07:15] LABS: Calcium 7.9 mg/dL (8.4-10.2); Potassium 4.1 mmol/L (3.5-5.1)
[2022-07-09] MEDS: AZITHROMYCIN 500 MG TAB PO SCH (08:09)
[2022-07-09] MEDS: SPIRONOLACTONE 25 MG TAB PO SCH (08:09)
[2022-07-09] MEDS: METOPROLOL TARTRATE 50 MG TAB PO SCH ×2 (08:09→20:42)
[2022-07-09] MEDS: CHOLECALCIFEROL 25 MCG (1000 IU) TABLET PO SCH (08:09)
[2022-07-09] MEDS: MAGNESIUM OXIDE 400 MG TAB PO SCH (08:09)
[2022-07-09] MEDS: ASCORBIC ACID 500 MG TAB PO SCH (08:11)
--- NOTE | 2022-07-09 08:16 | XR ---
EXAMINATION TYPE: XR chest 1V portable DATE OF EXAM: 07/09/2022 COMPARISON: 07/08/2022 INDICATION: Dyspnea TECHNIQUE: Single frontal view of the chest is obtained. FINDINGS: The heart size is normal. The pulmonary vasculature is normal. Mild diffuse increased lung markings are present. Correlate for volume overload. This is improving fr om comparison. IMPRESSION: 1. Improving volume overload or pulmonary edema.
[2022-07-09] MEDS: BUDESONIDE 1 MG/2 ML NEBU INHALATION SCH ×2 (08:58→23:14)
[2022-07-09] MEDS: ALBUTEROL NEBULIZED 2.5 MG/3 ML INHALATION SCH ×3 (08:59→15:53)
[2022-07-09] MEDS: IPRATROPIUM 0.5 MG/2.5 ML NEBU INHALATION SCH ×3 (08:59→15:53)
[2022-07-09 11:35] LABS: Glucose,Whole Blood 330 mg/dL (70-110)
[2022-07-09] MEDS ORDERED: WARFARIN 1 MG TAB PO ONE ×2 (13:15→18:00)
--- NOTE | 2022-07-09 14:51 | CONS ---
CONSULTATION HISTORY OF PRESENT ILLNESS: This is a lady with a history of previous intracranial bleed while on anticoagulation for what seems to be paroxysmal atrial fibrillation. She has a history of CVA as well with good recovery. She has had a previous MMA embolization, type 2 diabetes, hypertension, hyperlipidemia, and noncritical CAD based on cardiac catheterization from November. She was recently seen in the office by me, and she is scheduled for a Watchman procedure on July 13, at [facility] by Dr. Lindsey, an informatics consultant. However, this patient came into the hospital with increasing shortness of breath, and clinically, the picture seems to be more of an exacerbation of a COPD, bronchial asthma/tracheobronchitis type picture. Her BNP is normal. She has no overt clinical heart failure. She has been seen by Pulmonary, started on antibiotics and also on bronchodilators, and she is clinically doing better. She is now on a nasal cannula with decent oxygen saturation of 90%. She is currently on antibiotics, bronchodilators, and steroids. It appears that the patient has moderate persistent bronchial asthma with exacerbation and possible tracheobronchitis as a component of diastolic heart failure, but no obvious pneumonia. PHYSICAL EXAMINATION: VITAL SIGNS: Revealed a blood pressure of 140/70. Pulse rate is 80 per minute. HEENT: Unremarkable. Fundus was not examined by me. NECK: Supple. No JVD. I do not hear a carotid bruit. HEART: Reveals S1 and S2 heard normally. Short systolic murmur at left sternal border. LUNGS: Clear with improved air entry. ABDOMEN: Soft and nontender. EXTREMITIES: Lower extremities reveal diminished pulses. CENTRAL NERVOUS SYSTEM: Normal DIAGNOSTIC STUDIES: EKG revealed sinus mechanism, no acute changes. LABORATORY DATA: Reveal that her white count is normal. INR was 1.7. BNP is 1700. Troponin is unremarkable. IMPRESSION: 1. Exacerbation of chronic obstructive pulmonary disease/tracheobronchitis. 2. Probable underlying bronchial asthma. 3. No obstructive coronary artery disease. 4. The patient has left atrial thrombus and is currently being anticoagulated, planning for a Watchman procedure in view of a previous intracranial bleed. She is not a good candidate for anticoagulation long-term. RECOMMENDATIONS: I am recommending that we can increase activity, possibly discharge her if it is okayed by Pulmonary in the next 24 to 48 hours and proceed with the Watchman procedure scheduled for the at [facility]. Discussed my thoughts in detail with the patient. We will give additional Coumadin today. INR is 1.7. I will give 1 mg today. The patient can be discharged whenever okayed by Pulmonary. CRISTIAN / NISH: [id number] /
[2022-07-09 16:53] LABS: Glucose,Whole Blood 225 mg/dL (70-110)
[2022-07-09] MEDS ORDERED: WARFARIN 0.5 MG TAB PO SCH (18:00)
[2022-07-09 20:17] LABS: Glucose,Whole Blood 240 mg/dL (70-110)
[2022-07-09] MEDS: CITALOPRAM HYDROBROMIDE 20 MG TAB PO SCH (20:42)
[2022-07-09] MEDS ORDERED: INSULIN DETEMIR (LEVEMIR) 100 UNIT/ML SYR SQ ONE (22:00)
[2022-07-09] MEDS: IPRATROPIUM-ALBUTEROL 3 ML NEB INHALATION SCH (23:14)
--- NOTE | 2022-07-10 00:02 | P.PN ---
Subjective Progress Note Date: 07/09/22 Patient is a 77-year-old female with a past medical history of COPD presents to ER with complaints of worsening shortness of breath for the past 7 days and weight gain about 3 pounds. Initial laboratory test showed WBC 3.9 hemoglobin 12.0 and platelets 145 BUN 23 and creatinine 0.86 AST 65 ALT 34 alk phos 186 and proBNP 1700 and procalcitonin level was 0.13. Albumin 2.5. Urinalysis negative for infection. COVID-19, influenza A B and RSV PCR not detected. 07/09/2022 Patient is currently lying in the bed. Patient is on Airvo 35 L at 30% FiO2. Patient has been afebrile overnight. Was having cough with brown sputum production. No complaints of chest pain.No nausea vomiting abdominal pain or di arrhea. Chest x-ray showed improving volume overload or pulmonary edema. Laboratory data showed WBC 3.3 hemoglobin 12.2 and platelets 136 INR 1.7 Sodium 137 potassium 4.1 chloride 103 bicarb is 30 BUN 25 and creatinine 0.98 and blood sugar is 197. Calcium 7.9. Current medications reviewed. PHYSICAL EXAMINATION: Patient is lying in the bed comfortably, no acute distress, awake alert and orie nted. Morbidly obese. HEENT: Normocephalic. Neck is supple. Pupils reactive. Nostrils clear. Oral ca vity is moist. Neck reveals no JVD, carotid bruits, or thyromegaly. CHEST EXAMINATION: Trachea is central. Symmetrical expansion. Bilateral diffuse wheezing and rhonchi. Bibasilar diminished sounds. Nonlabored breathing. CARDIAC: Normal S1, S2 with no gallops. No murmurs ABDOMEN: Soft. Bowel sounds present. Nontender. No organomegaly. No abdominal bruits. Extremities: 3+ bilateral pedal edema. No clubbing or cyanosis Neurologically awake, alert, oriented. Able to move all extremities. No gross focal deficits noted Skin: No rash or skin lesions. Psychiatric: Coperative. Nonsuicidal, Musculoskeletal: No joint swelling or deformity. Normal range of motion. Assessment and plan Worsening shortness of breath which is multifactorial. Moderate persistent asthma with exacerbation Acute CHF with diastolic dysfunction Acute tracheobronchitis and possible pneumonia Obstructive sleep apnea not on CPAP at home Paroxysmal atrial fibrillation on anticoagulation with Coumadin. Subtherapeutic. Left atrial thrombus and currently being anticoagulated with warfarin. Patient is supposed to get LENNY, Watchman procedure as an outpatient on Saturday. Hypertension Moderate obesity with BMI 39.9 Diabetes type 2 History of nonalcoholic hepatic steatosis History of GERD status post Ambrose fundoplication Hypothyroidism Right ovarian mass currently under investigation as an outpatient Prior history of smoking quit 36 years ago History of subdural hematoma in January 2022 Coumadin dosing GI prophylaxis Plan: Patient is currently on Airvo high flow oxygen. Continued on IV diuresis with Lasix 40 mg every 12 hours Continue with methylprednisolone 60 mg every 6 hourly and DuoNebs. Antibiotics in the form of ceftriaxone and azithromycin. Procalcitonin level is 0.13. Coumadin dosing. Patient is supposed to follow-up with cardiology as an outpatient for Karen cantu on Saturday with his finisher polisher at [facility]. Cardiology and pulmonary is on board. CODE STATUS is DNR/DNI. Objective - Vital Signs Vital signs: Vital Signs Temp 98 F 07/09/22 12:00 Pulse 80 07/09/22 12:43 Resp 20 07/09/22 12:00 BP 151/73 07/09/22 12:00 Pulse Ox 98 07/09/22 12:00 FiO2 29 07/09/22 08:00 Intake & Output 07/08/22 07/09/22 07/09/22 18:59 06:59 18:59 Intake Total 200 358 Output Total 250 150 Balance 200 -250 208 Weight 103.873 kg 102.2 kg Intake: Oral 200 358 Output: Urine 250 150 Other: Voiding Method External Catheter External Catheter External Catheter # Bowel Movements 1 1 - Labs CBC & Chem 7: 07/09/22 06:29 07/09/22 06:29 Labs: Abnormal Lab Results - Last 24 Hours (Table) 07/08/22 07/08/22 07/08/22 Range/Units 13:26 13:26 13:26 RBC 3.67 L (3.80-5.40) m/uL MCV 101.0 H (80.0-100.0) fL Plt Count 145 L D (150-450) k/uL Lymphocytes # 0.7 L (1.0-4.8) k/uL PT 17.5 H (9.0-12.0) sec INR 1.8 H (<1.2) Carbon Dioxide 31 H (22-30) mmol/L BUN 23 H (7-17) mg/dL Glucose 113 H (74-99) mg/dL POC Glucose (mg/dL) (70-110) mg/dL Calcium 8.0 L (8.4-10.2) mg/dL Total Bilirubin 2.0 H (0.2-1.3) mg/dL AST 65 H (14-36) U/L Alkaline Phosphatase 186 H (38-126) U/L Total Protein 5.0 L (6.3-8.2) g/dL Albumin 2.5 L (3.5-5.0) g/dL Procalcitonin (0.02-0.09) ng/mL 07/08/22 07/08/22 07/08/22 Range/Units 16:14 17:08 17:08 RBC (3.80-5.40) m/uL MCV (80.0-100.0) fL Plt Count (150-450) k/uL Lymphocytes # (1.0-4.8) k/uL PT 16.3 H (9.0-12.0) sec INR 1.6 H (<1.2) Carbon Dioxide (22-30) mmol/L BUN (7-17) mg/dL Glucose (74-99) mg/dL POC Glucose (mg/dL) 128 H (70-110) mg/dL Calcium (8.4-10.2) mg/dL Total Bilirubin (0.2-1.3) mg/dL AST (14-36) U/L Alkaline Phosphatase (38-126) U/L Total Protein (6.3-8.2) g/dL Albumin (3.5-5.0) g/dL Procalcitonin 0.13 H (0.02-0.09) ng/mL 07/08/22 07/09/22 07/09/22 Range/Units 20:03 06:14 06:29 RBC (3.80-5.40) m/uL MCV (80.0-100.0) fL Plt Count (150-450) k/uL Lymphocytes # (1.0-4.8) k/uL PT 17.3 H (9.0-12.0) sec INR 1.7 H (<1.2) Carbon Dioxide (22-30) mmol/L BUN (7-17) mg/dL Glucose (74-99) mg/dL POC Glucose (mg/dL) 250 H 223 H (70-110) mg/dL Calcium (8.4-10.2) mg/dL Total Bilirubin (0.2-1.3) mg/dL AST (14-36) U/L Alkaline Phosphatase (38-126) U/L Total Protein (6.3-8.2) g/dL Albumin (3.5-5.0) g/dL Procalcitonin (0.02-0.09) ng/mL 07/09/22 07/09/22 07/09/22 Range/Units 06:29 06:29 11:33 RBC 3.68 L (3.80-5.40) m/uL MCV 101.9 H (80.0-100.0) fL Plt Count 136 L (150-450) k/uL Lymphocytes # 0.4 L (1.0-4.8) k/uL PT (9.0-12.0) sec INR (<1.2) Carbon Dioxide (22-30) mmol/L BUN 25 H (7-17) mg/dL Glucose 197 H (74-99) mg/dL POC Glucose (mg/dL) 330 H (70-110) mg/dL Calcium 7.9 L (8.4-10.2) mg/dL Total Bilirubin (0.2-1.3) mg/dL AST (14-36) U/L Alkaline Phosphatase (38-126) U/L Total Protein (6.3-8.2) g/dL Albumin (3.5-5.0) g/dL Procalcitonin (0.02-0.09) ng/mL
[2022-07-10 06:06] LABS: Glucose,Whole Blood 143 mg/dL (70-110)
[2022-07-10] MEDS: INSULIN ASPART (NovoLOG) 100 UNIT/ML VIAL SQ SCH ×4 (06:18→20:55)
[2022-07-10] MEDS: LEVOTHYROXINE 50 MCG TAB PO SCH (06:29)
[2022-07-10] MEDS: methylPREDNISolone SOD SUCCI 125 MG/2 ML VIAL IV SCH ×3 (06:29→16:57)
[2022-07-10] MEDS: METOPROLOL TARTRATE 50 MG TAB PO SCH ×2 (06:29→20:52)
[2022-07-10] MEDS: PANTOPRAZOLE 40 MG TABLET PO SCH (06:29)
[2022-07-10] MEDS: BUDESONIDE 1 MG/2 ML NEBU INHALATION SCH ×2 (08:31→21:52)
[2022-07-10] MEDS: IPRATROPIUM-ALBUTEROL 3 ML NEB INHALATION SCH ×4 (08:31→21:52)
[2022-07-10 09:07] LABS: Basophils % (A) 0 %; Eosinophils % (A) 0 %; HGB 12.8 gm/dL (11.4-16.0); Lymphocytes # (A) 0.6 k/uL (1.0-4.8); Lymphocytes % (A) 4 %; MCH 32.9 pg (25.0-35.0); Macrocytosis Slight; Mean Platelet Volume 8.4; Monocytes # (A) 0.4 k/uL (0-1.0); Monocytes % (A) 2 %; Neutrophils # (A) 15.4 k/uL (1.3-7.7); Neutrophils % (A) 94 %; Platelet Count 172 k/uL (150-450); RBC 3.89 m/uL (3.80-5.40); RDW 13.8 % (11.5-15.5); WBC 16.5 k/uL (3.8-10.6)
[2022-07-10 09:23] LABS: INR 2.2 (<1.2)
[2022-07-10 09:24] LABS: Calcium 8.1 mg/dL (8.4-10.2); Potassium 4.3 mmol/L (3.5-5.1)
[2022-07-10] MEDS: AZITHROMYCIN 500 MG TAB PO SCH (10:31)
[2022-07-10] MEDS: PRAMIPEXOLE 0.125 MG TAB PO SCH ×2 (10:31→20:55)
[2022-07-10] MEDS: MAGNESIUM OXIDE 400 MG TAB PO SCH (10:31)
[2022-07-10] MEDS: FERROUS SULFATE 325 MG TAB PO SCH (10:31)
[2022-07-10] MEDS: CHOLECALCIFEROL 25 MCG (1000 IU) TABLET PO SCH (10:32)
[2022-07-10] MEDS: ASCORBIC ACID 500 MG TAB PO SCH (10:32)
[2022-07-10] MEDS: FUROSEMIDE 10 MG/ML 4 ML VIAL IV SCH ×2 (10:32→20:52)
[2022-07-10] MEDS: SPIRONOLACTONE 25 MG TAB PO SCH (10:32)
[2022-07-10] MEDS: ACETAMINOPHEN TAB 325 MG TAB PO PRN (10:35)
[2022-07-10 11:31] LABS: Glucose,Whole Blood 157 mg/dL (70-110)
--- NOTE | 2022-07-10 12:11 | P.PN ---
Subjective Progress Note Date: 07/10/22 Principal diagnosis: Shortness of breath. I'm seeing this patient in new consultation today 07/09/2022 for progressive shortness of breath starting yesterday. This is a 77-year-old white female with a significant medical history for congestive heart failure, moderate persistent asthma, atrial fibrillation, left atrial appendage thrombus, diabetes mellitus type 2, hypertension, hypothyroidism, nonalcoholic cirrhosis of the liver, brain bleed, mild obstructive sleep apnea, remote history of smoking 36 years ago. Patient presented yesterday for difficulty breathing that started on Saturday. Patient reports shortness breath especially when exerting herself or lying flat, wheezing, fluid retention in her lower extremities, weight gain of about 3 pounds, and heart palpitations. She also reports some upper respiratory tract infection symptoms such as runny nose, cough with brown sputum production, and chills. She denies any subjective fevers or chest pain. Patient does follow with Dr. Gupta in the office for management of her moderate persistent asthma and mild obstructive sleep apnea. Patient patient states that she takes albuterol and Symbicort on an outpatient basis. She also follows with a rhinologist from [place], and has a planned LENNY and watchman procedure this Saturday. Patient is currently resting in bed, on AIRVO 35 L and 30% high flow cannula, in no acute distress. Chest x-ray on arrival showed mild cardiomegaly with mild diffuse interstitial opacities. No obvious focal consolidation. NT proBNP was mildly elevated at 1700. CBC on arrival shows a non-elevated WBC count of 3.9, hemoglobin 12, hematocrit 37, platelets 145,000. Patient's INR on arrival was sub-therapeutic at 1.6. Patient does take Coumadin on outpatient basis. Patient has reported some minimal rectal bleeding on and Saturday of this previous week. No bleeding since reported. BMP shows a sodium 137, potassium 4.2, chloride 104, serum CO2 31, BUN 23, creatinine 0.86, glucose 113. Lactic acid 1.5. LFTs mildly elevated. Negative for influenza, RSV, COVID-19. Pro-calcitonin levels pending. Patient is currently receiving bronchodilators and IV Solu-Medrol. She is also receiving empiric antibiotics for community associated pneumonia. Remains afebrile. Vital signs are stable. Progress note dated 07/10/2022. 7-year-old patient seen for shortness of breath, in room 374, secondary to asthma exacerbation, and diastolic CHF. Currently, the patient's on 3 L of oxygen. She's not receiving any IV fluids. Clinically, she feels better. White count 16.5, hemoglobin 12.8, hematocrit 40, and platelet count is normal. PTT is 22 with an INR of 2.2. Sodium, potassium, chloride, CO2, and anion gap, are all normal. BUN is 30 with a creatinine of 1.14. Chest x-ray shows a pattern of improving volume status. Objective - Vital Signs Vital signs: Vital Signs Temp 98.0 F 07/10/22 11:33 Pulse 88 07/10/22 12:03 Resp 16 07/10/22 11:33 BP 125/66 07/10/22 11:33 Pulse Ox 97 07/10/22 11:33 FiO2 29 07/09/22 08:00 Intake & Output 07/09/22 07/10/22 07/10/22 18:59 06:59 18:59 Intake Total 476 10 180 Output Total 400 Balance 76 10 180 Weight 103 kg Intake: IV 10 Invasive Line 1 10 Oral 476 180 Output: Urine 400 Other: Voiding Method External Catheter External Catheter External Catheter # Voids 1 1 # Bowel Movements 1 1 1 - Exam No acute distress, oriented 3. Currently on 3 L. No conversational dyspnea or use of accessory muscles. HEENT examination is grossly unremarkable. Neck supple. Full range of motion. No adenopathy thyromegaly or neck vein distention. Cardiovascular examination reveals regular rhythm rate. S1-S2 normal. No S3 or S4. No discernible murmur noted. Heart rate 79 bpm. Heart sounds are distant. Lungs reveal scattered bibasilar crackles. A few scattered rhonchi. Minimal wheezes. Breath sounds equal bilaterally. Saturations are 94% on 3 L. Abdomen soft bowel sounds are heard. No masses or tenderness. Extremities are intact. No cyanosis clubbing or edema. Skin is without rash or lesion. Neurologic examination is brief but nonfocal. - Labs CBC & Chem 7: 07/10/22 08:14 07/10/22 08:14 Labs: Abnormal Lab Results - Last 24 Hours (Table) 07/09/22 07/09/22 07/10/22 Range/Units 16:47 20:15 06:04 WBC (3.8-10.6) k/uL MCV (80.0-100.0) fL Neutrophils # (1.3-7.7) k/uL Lymphocytes # (1.0-4.8) k/uL PT (9.0-12.0) sec INR (<1.2) BUN (7-17) mg/dL Creatinine (0.52-1.04) mg/dL Glucose (74-99) mg/dL POC Glucose (mg/dL) 225 H 240 H 143 H (70-110) mg/dL Calcium (8.4-10.2) mg/dL 07/10/22 07/10/22 07/10/22 Range/Units 08:14 08:14 08:14 WBC 16.5 H (3.8-10.6) k/uL MCV 103.0 H (80.0-100.0) fL Neutrophils # 15.4 H (1.3-7.7) k/uL Lymphocytes # 0.6 L (1.0-4.8) k/uL PT 22.0 H (9.0-12.0) sec INR 2.2 H (<1.2) BUN 30 H (7-17) mg/dL Creatinine 1.14 H (0.52-1.04) mg/dL Glucose 171 H (74-99) mg/dL POC Glucose (mg/dL) (70-110) mg/dL Calcium 8.1 L (8.4-10.2) mg/dL 07/10/22 Range/Units 11:27 WBC (3.8-10.6) k/uL MCV (80.0-100.0) fL Neutrophils # (1.3-7.7) k/uL Lymphocytes # (1.0-4.8) k/uL PT (9.0-12.0) sec INR (<1.2) BUN (7-17) mg/dL Creatinine (0.52-1.04) mg/dL Glucose (74-99) mg/dL POC Glucose (mg/dL) 157 H (70-110) mg/dL Calcium (8.4-10.2) mg/dL Microbiology - Last 24 Hours (Table) 07/08/22 17:15 Blood Culture - Preliminary Blood No Growth after 24 hours Assessment and Plan Assessment: Acute exacerbation of asthma, as well as mild exacerbation of diastolic CHF, leading to hypoxemic respiratory failure. History of paroxysmal atrial fibrillation. History of subdural hematoma, January 2022. History of rectal bleeding. Type 2 diabetes mellitus. Essential hypertension. Morbid obesity. Nonalcoholic steatohepatitis. Gastroesophageal reflux disease, without esophagitis, status post Ambrose fundoplication. History of hypothyroidism. Mild obstructive sleep apnea syndrome. Previous history of tobacco use. Right ovarian mass. Plan: Plan dated 07/10/2022. The patient remains on appropriate medications. His oxygen. We did not give her a long-acting beta agonist, she has an intolerance to that. She is receiving albuterol sulfate, ipratropium bromide, and budesonide solution. She is also receiving corticosteroids. We will continue to follow make recommendations along the way. Prognosis is guarded. Time with Patient: Less than 30
--- NOTE | 2022-07-10 13:58 | P.PN ---
Subjective Progress Note Date: 07/10/22 History of present illness: This is a 77 year old female patient with known history of intracranial bleed while on anticoagulation for paroxysmal atrial fibrillation, history of CVA as well with good recovery, previous MM a embolization, type 2 diabetes, hypertension, hyperlipidemia, noncritical coronary artery disease on catheterization November. She is a patient of Dr. ELVIRA Patton and follows with Dr. Lindsey and scheduled for watchman procedure on July 13. Patient presented with increasing shortness of breath appears to be COPD exacerbation with bronchial asthma. Patient complains of shortness of breath with exertion continues to wheezing which is worsened from yesterday. She has followed by pulmonary medicine as well. INR today is 2.2 and we will ask for Coumadin to be held tonight. Repeat blood work reveals WBC 16.5, hemoglobin 12.8, BUN 30 creatinine 1.14. Physical examination: Gen: This is a 77-year-old female. She is resting but appears to be fairly comfortable. VS: reviewed HEENT: Head is atraumatic, normocephalic. Pupils equal, round. Sclerae is anicteric. NECK: Supple. No JVD. . LUNGS: Bilateral expiratory wheeze. No intercostal retractions. HEART: Regular rate and rhythm. Short systolic murmur at the left sternal border. ABDOMEN: Soft No tenderness. EXTREMITIES: No pedal edema. No calf tenderness. NEUROLOGICAL: Patient is awake, alert and oriented x3. Assessment: COPD exacerbation/tracheobronchitis Bronchial asthma Acute diastolic heart Nonobstructive coronary artery disease Left atrial thrombus with plan for watchman procedure on Saturday Paroxysmal atrial fibrillation History of intracranial bleed History of CVA Hypertension Hyperlipidemia Diabetes mellitus type 2 Plan: Patient will require stabilization of respiratory status and be cleared for watchman procedure for Saturday Hold Coumadin for tonight as patient did receive 2 doses of 1 mg H yesterday Patient is on Lasix 40 mg IV every 12 hours Further recommendations to follow based upon clinical course Thank you kindly for this consultation. Nurse practitioner note has been reviewed, I agree with documented findings and plan of care. Patient was seen and examined. Objective - Vital Signs Vital signs: Vital Signs Temp 97.9 F 07/10/22 08:00 Pulse 88 07/10/22 08:48 Resp 16 07/10/22 08:00 BP 91/56 07/10/22 08:00 Pulse Ox 98 07/10/22 08:32 FiO2 29 07/09/22 08:00 Intake & Output 07/09/22 07/10/22 07/10/22 18:59 06:59 18:59 Intake Total 476 10 180 Output Total 400 Balance 76 10 180 Weight 103 kg Intake: IV 10 Invasive Line 1 10 Oral 476 180 Output: Urine 400 Other: Voiding Method External Catheter External Catheter External Catheter # Voids 1 # Bowel Movements 1 1 - Labs CBC & Chem 7: 07/10/22 08:14 07/10/22 08:14 Labs: Abnormal Lab Results - Last 24 Hours (Table) 07/08/22 07/09/22 07/09/22 Range/Units 17:08 11:33 16:47 WBC (3.8-10.6) k/uL MCV (80.0-100.0) fL Neutrophils # (1.3-7.7) k/uL Lymphocytes # (1.0-4.8) k/uL POC Glucose (mg/dL) 330 H 225 H (70-110) mg/dL Procalcitonin 0.13 H (0.02-0.09) ng/mL 07/09/22 07/10/22 07/10/22 Range/Units 20:15 06:04 08:14 WBC 16.5 H (3.8-10.6) k/uL MCV 103.0 H (80.0-100.0) fL Neutrophils # 15.4 H (1.3-7.7) k/uL Lymphocytes # 0.6 L (1.0-4.8) k/uL POC Glucose (mg/dL) 240 H 143 H (70-110) mg/dL Procalcitonin (0.02-0.09) ng/mL Microbiology - Last 24 Hours (Table) 07/08/22 17:15 Blood Culture - Preliminary Blood No Growth after 24 hours
[2022-07-10 16:32] LABS: Glucose,Whole Blood 216 mg/dL (70-110)
[2022-07-10] MEDS ORDERED: WARFARIN 0.5 MG TAB PO ONE (18:00)
[2022-07-10 20:23] LABS: Glucose,Whole Blood 227 mg/dL (70-110)
[2022-07-10] MEDS: CITALOPRAM HYDROBROMIDE 20 MG TAB PO SCH (20:52)
[2022-07-11] MEDS: methylPREDNISolone SOD SUCCI 125 MG/2 ML VIAL IV SCH ×5 (01:08→23:32)
--- NOTE | 2022-07-11 04:58 | P.PN ---
Subjective Progress Note Date: 07/10/22 Patient is a 77-year-old female with a past medical history of COPD presents to ER with complaints of worsening shortness of breath for the past 7 days and weight gain about 3 pounds. Initial laboratory test showed WBC 3.9 hemoglobin 12.0 and platelets 145 BUN 23 and creatinine 0.86 AST 65 ALT 34 alk phos 186 and proBNP 1700 and procalcitonin level was 0.13. Albumin 2.5. Urinalysis negative for infection. COVID-19, influenza A B and RSV PCR not detected. 07/09/2022 Patient is currently lying in the bed. Patient is on Airvo 35 L at 30% FiO2. Patient has been afebrile overnight. Was having cough with brown sputum production. No complaints of chest pain.No nausea vomiting abdominal pain or diarrhea. Chest x-ray showed improving volume overload or pulmonary edema. Laboratory data showed WBC 3.3 hemoglobin 12.2 and platelets 136 INR 1.7 Sodium 137 potassium 4.1 chloride 103 bicarb is 30 BUN 25 and creatinine 0.98 and blood sugar is 197. Calcium 7.9. 07/10/2022 Patient is seen and evaluated in follow-up today with pulmonary and cardiology following. Patient continues to have shortness of breath and maintained on oxygen with pulmonary following and patient is receiving IV ceftriaxone and has finished a Zithromax. Patient is on Coumadin with pharmacy to dose and also being maintained on IV Lasix with dose being adjusted to 40 mg twice daily and will continue. Patient does continue on IV steroids and would recommend monitoring Accu-Cheks before meals and at bedtime and use sliding scale as needed. Patient does not normally wear oxygen in the outpatient setting and recommended wean FiO2 as tolerated and will evaluate for possible home O2 requirements. Patient is currently afebrile, denies chest pain or palpitations. Patient is reporting that she is eating with occasional nausea with no vomiting noted. Encouraged increase activity as tolerated. Review of systems: Constitutional: No reports of fatigue, fever, or chills Cardiovascular: No reports of chest pain or palpitations Respiratory: No reports of worsening shortness of breath GI: No reports of nausea, vomiting, or diarrhea : No reports of dysuria or retention Neurovascular: reports of generalized weakness All medications have been reviewed Active Medications Acetaminophen (Acetaminophen Tab 325 Mg Tab) 650 mg PO Q6H PRN PRN Reason: Mild Pain or Fever > 100.5 Last Admin: 07/10/22 10:35 Dose: 650 mg Albuterol/Ipratropium (Ipratropium-Albuterol 3 Ml Neb) 3 ml INHALATION RT-QID [facility] Last Admin: 07/10/22 11:53 Dose: 3 ml Ascorbic Acid (Ascorbic Acid 500 Mg Tab) 1,000 mg PO DAILY [facility] Last Admin: 07/10/22 10:32 Dose: 1,000 mg Atenolol (Atenolol 50 Mg Tab) 100 mg PO DAILY PRN PRN Reason: HIGH BLOOD PRESSURE Budesonide (Budesonide 1 Mg/2 Ml Nebu) 1 mg INHALATION RT-BID [facility] Last Admin: 07/10/22 08:31 Dose: 1 mg Cholecalciferol (Cholecalciferol 25 Mcg (1000 Iu) Tablet) 25 mcg PO DAILY [facility] Last Admin: 07/10/22 10:32 Dose: 25 mcg Citalopram Hydrobromide (Citalopram Hydrobromide 20 Mg Tab) 20 mg PO HS [facility] Last Admin: 07/09/22 20:42 Dose: 20 mg Dextrose/Water (Dextrose 50% Syringe 50 Ml) 25 ml IVP PER PROTOCOL PRN; Protocol PRN Reason: Hypoglycemia Dextrose/Water (Dextrose 50% Syringe 50 Ml) 50 ml IVP PER PROTOCOL PRN; Protocol PRN Reason: Hypoglycemia Ferrous Sulfate (Ferrous Sulfate 325 Mg Tab) 325 mg PO Q48H [facility] Last Admin: 07/10/22 10:31 Dose: 325 mg Furosemide (Furosemide 10 Mg/Ml 4 Ml Vial) 40 mg IV Q12HR [facility] Last Admin: 07/10/22 10:32 Dose: 40 mg Ceftriaxone Sodium 1 gm/ (Sodium Chloride) 50 mls @ 100 mls/hr IVPB Q24H [facility]; Protocol Last Admin: 07/09/22 20:42 Dose: 100 mls/hr Insulin Aspart (Insulin Aspart (Novolog) 100 Unit/Ml Vial) 0 unit SQ ACHS [facility]; Protocol Last Admin: 07/10/22 06:18 Dose: Not Given Levothyroxine Sodium (Levothyroxine 50 Mcg Tab) 50 mcg PO DAILY@0630 [facility] Last Admin: 07/10/22 06:29 Dose: 50 mcg Magnesium Oxide (Magnesium Oxide 400 Mg Tab) 400 mg PO DAILY [facility] Last Admin: 07/10/22 10:31 Dose: 400 mg Methylprednisolone Sodium Succinate (Methylprednisolone Sod Succi 125 Mg/2 Ml Vial) 60 mg IV Q6HR [facility] Last Admin: 07/10/22 12:24 Dose: 60 mg Metoprolol Tartrate (Metoprolol Tartrate 50 Mg Tab) 50 mg PO BID [facility] Last Admin: 07/10/22 06:29 Dose: 50 mg Miscellaneous Information (Warfarin Per Pharmacy) 0 each MISCELLANE DIRECTED PRN PRN Reason: PHARMACY DOSING WARFARIN Naloxone HCl (Naloxone 0.4 Mg/Ml 1 Ml Vial) 0.2 mg IVP Q2M PRN PRN Reason: Opioid Reversal Pantoprazole Sodium (Pantoprazole 40 Mg Tablet) 40 mg PO AC-BRKFST [facility] Last Admin: 07/10/22 06:29 Dose: 40 mg Pramipexole Dihydrochloride (Pramipexole 0.125 Mg Tab) 0.125 mg PO BID [facility] Last Admin: 07/10/22 10:31 Dose: 0.125 mg Spironolactone (Spironolactone 25 Mg Tab) 25 mg PO DAILY [facility] Last Admin: 07/10/22 10:32 Dose: 25 mg Warfarin Sodium (Warfarin 0.5 Mg Tab) 0.5 mg PO ONCE@1800 ONE; Protocol Stop: 07/10/22 18:01 PHYSICAL EXAMINATION: Patient is sitting up in the bed comfortably, no acute distress, awake alert and oriented. Morbidly obese. HEENT: Normocephalic. Neck is supple. Pupils reactive. Nostrils clear. Oral cavity is moist. Neck reveals no JVD, carotid bruits, or thyromegaly. CHEST EXAMINATION: Trachea is central. Symmetrical expansion. Bilateral diffuse wheezing and rhonchi. Bibasilar diminished sounds. Nonlabored breathing. CARDIAC: Normal S1, S2 with no gallops. No murmurs ABDOMEN: Soft. Bowel sounds present. Nontender. No organomegaly. No abdominal bruits. Extremities: 3+ bilateral pedal edema. No clubbing or cyanosis Neurologically awake, alert, oriented. Able to move all extremities. No gross focal deficits noted Skin: No rash or skin lesions. Psychiatric: Cooperative. Non-suicidal, Musculoskeletal: No joint swelling or deformity. Normal range of motion. Assessment: Worsening shortness of breath which is multifactorial. Moderate persistent asthma with exacerbation Acute CHF with diastolic dysfunction Acute tracheobronchitis and possible pneumonia Obstructive sleep apnea not on CPAP at home Paroxysmal atrial fibrillation on anticoagulation with Coumadin. Subtherapeutic. Left atrial thrombus and currently being anticoagulated with warfarin. Patient is supposed to get LENNY, Watchman procedure as an outpatient on Saturday. Hypertension Moderate obesity with BMI 39.9 Diabetes type 2 History of nonalcoholic hepatic steatosis History of GERD status post Ambrose fundoplication Hypothyroidism Right ovarian mass currently under investigation as an outpatient Prior history of smoking quit 36 years ago History of subdural hematoma in January 2022 Coumadin dosing GI prophylaxis No code Plan: Patient is currently on 3 L nasal cannula oxygen. Weaning FiO2 as tolerated with pulmonary and cardiology following Continued on IV diuresis with Lasix 40 mg every 12 hours follow-up with repeat labs in a.m., replace electrolytes per protocol Continue with methylprednisolone 60 mg every 6 hourly and DuoNebs. Antibiotics in the form of ceftriaxone and has completed azithromycin. Proca lcitonin level is 0.13. Coumadin monitoring with pharmacy to dose Patient is supposed to follow-up with cardiology as an outpatient for Watchman procedure on Saturday with her microscopist at [facility]. Prognosis Is guarded CODE STATUS is DNR/DNI. The impression and plan of care has been dictated by Melissa Diaz, Nurse Practitioner as directed. Dr. Roosevelt MD I have performed a history and examination and MDM of this patient, discussed the same with the dictator, and agree with the dictator's assessment and plan as written ,documented as a scribe. Based on total visit time, I have performed more than 50% of the visit. Objective - Vital Signs Vital signs: Vital Signs Temp 97.9 F 07/10/22 08:00 Pulse 88 07/10/22 08:48 Resp 16 07/10/22 08:00 BP 91/56 07/10/22 08:00 Pulse Ox 98 07/10/22 08:32 FiO2 29 07/09/22 08:00 Intake & Output 07/09/22 07/10/22 07/10/22 18:59 06:59 18:59 Intake Total 476 10 180 Output Total 400 Balance 76 10 180 Weight 103 kg Intake: IV 10 Invasive Line 1 10 Oral 476 180 Output: Urine 400 Other: Voiding Method External Catheter External Catheter External Catheter # Voids 1 # Bowel Movements 1 1 - Labs CBC & Chem 7: 07/10/22 08:14 07/10/22 08:14 Labs: Abnormal Lab Results - Last 24 Hours (Table) 07/09/22 07/09/22 07/09/22 Range/Units 11:33 16:47 20:15 WBC (3.8-10.6) k/uL MCV (80.0-100.0) fL Neutrophils # (1.3-7.7) k/uL Lymphocytes # (1.0-4.8) k/uL PT (9.0-12.0) sec INR (<1.2) BUN (7-17) mg/dL Creatinine (0.52-1.04) mg/dL Glucose (74-99) mg/dL POC Glucose (mg/dL) 330 H 225 H 240 H (70-110) mg/dL Calcium (8.4-10.2) mg/dL 07/10/22 07/10/22 07/10/22 Range/Units 06:04 08:14 08:14 WBC 16.5 H (3.8-10.6) k/uL MCV 103.0 H (80.0-100.0) fL Neutrophils # 15.4 H (1.3-7.7) k/uL Lymphocytes # 0.6 L (1.0-4.8) k/uL PT 22.0 H (9.0-12.0) sec INR 2.2 H (<1.2) BUN (7-17) mg/dL Creatinine (0.52-1.04) mg/dL Glucose (74-99) mg/dL POC Glucose (mg/dL) 143 H (70-110) mg/dL Calcium (8.4-10.2) mg/dL 07/10/22 Range/Units 08:14 WBC (3.8-10.6) k/uL MCV (80.0-100.0) fL Neutrophils # (1.3-7.7) k/uL Lymphocytes # (1.0-4.8) k/uL PT (9.0-12.0) sec INR (<1.2) BUN 30 H (7-17) mg/dL Creatinine 1.14 H (0.52-1.04) mg/dL Glucose 171 H (74-99) mg/dL POC Glucose (mg/dL) (70-110) mg/dL Calcium 8.1 L (8.4-10.2) mg/dL Microbiology - Last 24 Hours (Table) 07/08/22 17:15 Blood Culture - Preliminary Blood No Growth after 24 hours
[2022-07-11 05:57] LABS: Glucose,Whole Blood 135 mg/dL (70-110)
[2022-07-11] MEDS: INSULIN ASPART (NovoLOG) 100 UNIT/ML VIAL SQ SCH ×4 (06:14→20:50)
[2022-07-11] MEDS: PANTOPRAZOLE 40 MG TABLET PO SCH (06:20)
[2022-07-11] MEDS: LEVOTHYROXINE 50 MCG TAB PO SCH (06:20)
[2022-07-11] MEDS: IPRATROPIUM-ALBUTEROL 3 ML NEB INHALATION SCH ×4 (08:23→21:13)
[2022-07-11] MEDS: BUDESONIDE 1 MG/2 ML NEBU INHALATION SCH ×2 (08:23→21:13)
[2022-07-11 10:02] LABS: Basophils % (A) 0 %; Eosinophils % (A) 0 %; HCT 39.5 % (34.0-46.0); HGB 12.5 gm/dL (11.4-16.0); Lymphocytes # (A) 0.4 k/uL (1.0-4.8); Lymphocytes % (A) 4 %; MCH 32.8 pg (25.0-35.0); MCHC 31.8 g/dL (31.0-37.0); MCV 103.2 fL (80.0-100.0); Macrocytosis Slight; Mean Platelet Volume 8.3; Monocytes # (A) 0.2 k/uL (0-1.0); Monocytes % (A) 2 %; Neutrophils # (A) 9.9 k/uL (1.3-7.7); Neutrophils % (A) 94 %; Platelet Count 152 k/uL (150-450); RBC 3.83 m/uL (3.80-5.40); RDW 13.8 % (11.5-15.5); WBC 10.5 k/uL (3.8-10.6)
[2022-07-11] MEDS: ASCORBIC ACID 500 MG TAB PO SCH (10:04)
[2022-07-11] MEDS: CHOLECALCIFEROL 25 MCG (1000 IU) TABLET PO SCH (10:04)
[2022-07-11] MEDS: MAGNESIUM OXIDE 400 MG TAB PO SCH (10:05)
[2022-07-11] MEDS: METOPROLOL TARTRATE 50 MG TAB PO SCH ×2 (10:05→20:49)
[2022-07-11] MEDS: FUROSEMIDE 10 MG/ML 4 ML VIAL IV SCH ×2 (10:05→20:49)
[2022-07-11] MEDS: SPIRONOLACTONE 25 MG TAB PO SCH (10:06)
[2022-07-11] MEDS: PRAMIPEXOLE 0.125 MG TAB PO SCH ×2 (10:06→20:49)
[2022-07-11 10:25] LABS: Calcium 8.1 mg/dL (8.4-10.2); Magnesium 2.2 mg/dL (1.6-2.3); Potassium 4.2 mmol/L (3.5-5.1)
[2022-07-11 10:26] LABS: INR 2.6 (<1.2); Prothrombin Time 25.6 sec (9.0-12.0)
--- NOTE | 2022-07-11 11:19 | P.PN ---
Subjective Progress Note Date: 07/11/22 Principal diagnosis: Shortness of breath. I'm seeing this patient in new consultation today 07/09/2022 for progressive shortness of breath starting yesterday. This is a 77-year-old white female with a significant medical history for congestive heart failure, moderate persistent asthma, atrial fibrillation, left atrial appendage thrombus, diabetes mellitus type 2, hypertension, hypothyroidism, nonalcoholic cirrhosis of the liver, brain bleed, mild obstructive sleep apnea, remote history of smoking 36 years ago. Patient presented yesterday for difficulty breathing that started on Saturday. Patient reports shortness breath especially when exerting herself or lying flat, wheezing, fluid retention in her lower extremities, weight gain of about 3 pounds, and heart palpitations. She also reports some upper respiratory tract infection symptoms such as runny nose, cough with brown sputum production, and chills. She denies any subjective fevers or chest pain. Patient does follow with Dr. Gupta in the office for management of her moderate persistent asthma and mild obstructive sleep apnea. Patient patient states that she takes albuterol and Symbicort on an outpatient basis. She also follows with a retail service specialist from [place], and has a planned LENNY and watchman procedure this Saturday. Patient is currently resting in bed, on AIRVO 35 L and 30% high flow cannula, in no acute distress. Chest x-ray on arrival showed mild cardiomegaly with mild diffuse interstitial opacities. No obvious focal consolidation. NT proBNP was mildly elevated at 1700. CBC on arrival shows a non-elevated WBC count of 3.9, hemoglobin 12, hematocrit 37, platelets 145,000. Patient's INR on arrival was sub-therapeutic at 1.6. Patient does take Coumadin on outpatient basis. Patient has reported some minimal rectal bleeding on and Saturday of this previous week. No bleeding since reported. BMP shows a sodium 137, potassium 4.2, chloride 104, serum CO2 31, BUN 23, creatinine 0.86, glucose 113. Lactic acid 1.5. LFTs mildly elevated. Negative for influenza, RSV, COVID-19. Pro-calcitonin levels pending. Patient is currently receiving bronchodilators and IV Solu-Medrol. She is also receiving empiric antibiotics for community associated pneumonia. Remains afebrile. Vital signs are stable. Progress note dated 07/10/2022. 7-year-old patient seen for shortness of breath, in room 374, secondary to asthma exacerbation, and diastolic CHF. Currently, the patient's on 3 L of oxygen. She's not receiving any IV fluids. Clinically, she feels better. White count 16.5, hemoglobin 12.8, hematocrit 40, and platelet count is normal. PTT is 22 with an INR of 2.2. Sodium, potassium, chloride, CO2, and anion gap, are all normal. BUN is 30 with a creatinine of 1.14. Chest x-ray shows a pattern of improving volume status. Progress note dated 07/11/2022. 77-year-old female seen today in room 374. The patient was admitted with a diagnosis of asthma exacerbation, and diastolic CHF. The patient was to have a cardiac procedure done on Saturday, and an outside hospital. The patient should not have that done at this time. She remains on 2 L of oxygen. No IV fluids. Her daughter is in the room with her. The patient's only feeling marginally better. I did mention to the retail service specialist here, at her procedure should be canceled. White count 10.5, hemoglobin 12.5, hematocrit 39.5, with a normal platelet count. PT 25.6 with an INR 2.6. Sodium 136, potassium 4.2, chlorides 100, CO2 31, BUN 38, creatinine 1.10. Objective - Vital Signs Vital signs: Vital Signs Temp 98.3 F 07/11/22 07:48 Pulse 74 07/11/22 08:36 Resp 20 07/11/22 07:48 BP 145/75 07/11/22 07:48 Pulse Ox 94 L 07/11/22 08:24 FiO2 29 07/09/22 08:00 Intake & Output 07/10/22 07/11/22 07/11/22 18:59 06:59 18:59 Intake Total 420 20 10 Output Total 300 500 500 Balance 120 -480 -490 Weight 104.1 kg Intake: IV 20 10 Invasive Line 1 10 Invasive Line 2 10 10 Oral 420 Output: Urine 300 500 500 Other: Voiding Method External Catheter External Catheter External Catheter # Voids 1 # Bowel Movements 1 - Exam No acute distress, oriented 3. Currently on 2 L. No conversational dyspnea or use of accessory muscles. HEENT examination is grossly unremarkable. Neck supple. Full range of motion. No adenopathy thyromegaly or neck vein distention. Cardiovascular examination reveals regular rhythm rate. S1-S2 normal. No S3 or S4. No discernible murmur noted. Heart rate 74 bpm. Heart sounds are distant. Lungs reveal scattered bibasilar crackles. A few scattered rhonchi. Minimal wheezes. Breath sounds equal bilaterally. Saturations are 94% on 2 L. Abdomen soft bowel sounds are heard. No masses or tenderness. Extremities are intact. No cyanosis clubbing or edema. Skin is without rash or lesion. Neurologic examination is brief but nonfocal. - Labs CBC & Chem 7: 07/11/22 09:11 07/11/22 09:11 Labs: Abnormal Lab Results - Last 24 Hours (Table) 07/10/22 07/10/22 07/10/22 Range/Units 08:14 11:27 16:31 MCV (80.0-100.0) fL Neutrophils # (1.3-7.7) k/uL Lymphocytes # (1.0-4.8) k/uL PT (9.0-12.0) sec INR (<1.2) Sodium (137-145) mmol/L Carbon Dioxide (22-30) mmol/L BUN (7-17) mg/dL Creatinine (0.52-1.04) mg/dL Glucose (74-99) mg/dL POC Glucose (mg/dL) 157 H 216 H (70-110) mg/dL Calcium (8.4-10.2) mg/dL Procalcitonin 0.13 H (0.02-0.09) ng/mL 07/10/22 07/11/22 07/11/22 Range/Units 20:21 05:55 09:11 MCV (80.0-100.0) fL Neutrophils # (1.3-7.7) k/uL Lymphocytes # (1.0-4.8) k/uL PT 25.6 H (9.0-12.0) sec INR 2.6 H (<1.2) Sodium (137-145) mmol/L Carbon Dioxide (22-30) mmol/L BUN (7-17) mg/dL Creatinine (0.52-1.04) mg/dL Glucose (74-99) mg/dL POC Glucose (mg/dL) 227 H 135 H (70-110) mg/dL Calcium (8.4-10.2) mg/dL Procalcitonin (0.02-0.09) ng/mL 07/11/22 07/11/22 Range/Units 09:11 09:11 MCV 103.2 H (80.0-100.0) fL Neutrophils # 9.9 H (1.3-7.7) k/uL Lymphocytes # 0.4 L (1.0-4.8) k/uL PT (9.0-12.0) sec INR (<1.2) Sodium 136 L (137-145) mmol/L Carbon Dioxide 31 H (22-30) mmol/L BUN 38 H (7-17) mg/dL Creatinine 1.10 H (0.52-1.04) mg/dL Glucose 251 H (74-99) mg/dL POC Glucose (mg/dL) (70-110) mg/dL Calcium 8.1 L (8.4-10.2) mg/dL Procalcitonin (0.02-0.09) ng/mL Microbiology - Last 24 Hours (Table) 07/08/22 17:15 Blood Culture - Preliminary Blood No Growth after 48 hours Assessment and Plan Assessment: Acute exacerbation of asthma, as well as mild exacerbation of diastolic CHF, leading to hypoxemic respiratory failure. History of paroxysmal atrial fibrillation. History of subdural hematoma, January 2022. History of rectal bleeding. Type 2 diabetes mellitus. Essential hypertension. Morbid obesity. Nonalcoholic steatohepatitis. Gastroesophageal reflux disease, without esophagitis, status post Ambrose fundoplication. History of hypothyroidism. Mild obstructive sleep apnea syndrome. Previous history of tobacco use. Right ovarian mass. Plan: Plan dated 07/10/2022. The patient remains on appropriate medications. His oxygen. We did not give her a long-acting beta agonist, she has an intolerance to that. She is receiving albuterol sulfate, ipratropium bromide, and budesonide solution. She is also receiving corticosteroids. We will continue to follow make recommendations along the way. Prognosis is guarded. Plan dated 07/11/2022. The patient is not quite ready for discharge. The patient COPD/asthma still quite active. She continues on appropriate medications including bronchodilators, and steroids. Her cardiac procedure which was scheduled for Saturday, should be canceled. She will not get out of the hospital before Saturday. I did mention that to her current inpatient retail service specialist. We will continue to follow her and make recommendations along the way. Prognosis is guarded. Time with Patient: Less than 30
[2022-07-11 11:36] LABS: Glucose,Whole Blood 214 mg/dL (70-110)
--- NOTE | 2022-07-11 12:42 | P.PN ---
Subjective Progress Note Date: 07/11/22 History of present illness: This is a 77 year old female patient with known history of intracranial bleed while on anticoagulation for paroxysmal atrial fibrillation, history of CVA as well with good recovery, previous MM a embolization, type 2 diabetes, hypertension, hyperlipidemia, noncritical coronary artery disease on catheterization November. She is a patient of Dr. ELVIRA Patton and follows with Dr. Lindsey and scheduled for watchman procedure on July 13. Patient presented with increasing shortness of breath appears to be COPD exacerbation with bronchial asthma. Patient complains of shortness of breath with exertion continues to wheezing which is worsened from yesterday. She has followed by pulmonary medicine as well. INR today is 2.2 and we will ask for Coumadin to be held tonight. Repeat blood work reveals WBC 16.5, hemoglobin 12.8, BUN 30 creatinine 1.14. 07/11 Patient states that she feels her breathing is a little bit better from yesterday but still having some wheezing. She is continued on IV steroids, inhaled steroids and nebulizer treatments as well as antibiotics. Patient has been resumed on her home cardiac medications. INR today is 2.6. She did not receive Coumadin last evening. Pharmacy is now dosing. Physical examination: Gen: This is a 77-year-old female. She is resting but appears to be fairly comfortable. VS: reviewed HEENT: Head is atraumatic, normocephalic. Pupils equal, round. Sclerae is anicteric. NECK: Supple. No JVD. . LUNGS: Bilateral expiratory wheeze. No intercostal retractions. HEART: Regular rate and rhythm. Short systolic murmur at the left sternal border. ABDOMEN: Soft No tenderness. EXTREMITIES: No pedal edema. No calf tenderness. NEUROLOGICAL: Patient is awake, alert and oriented x3. Assessment: COPD exacerbation/tracheobronchitis Bronchial asthma Acute diastolic heart failure Nonobstructive coronary artery disease Left atrial thrombus with plan for watchman procedure on Saturday Paroxysmal atrial fibrillation History of intracranial bleed History of CVA Hypertension Hyperlipidemia Diabetes mellitus type 2 Plan: Continue current cardiac medications Continue Coumadin, pharmacy dosing Continue on Lasix 40 mg IV every 12 hours, monitor I&O, daily weights, electrolytes and renal function Further recommendations to follow based upon clinical course Thank you kindly for this consultation. Nurse practitioner note has been reviewed, I agree with documented findings and plan of care. Patient was seen and examined. Objective - Vital Signs Vital signs: Vital Signs Temp 98.3 F 07/11/22 07:48 Pulse 74 07/11/22 08:36 Resp 20 07/11/22 07:48 BP 145/75 07/11/22 07:48 Pulse Ox 94 L 07/11/22 08:24 FiO2 29 07/09/22 08:00 Intake & Output 07/10/22 07/11/22 07/11/22 18:59 06:59 18:59 Intake Total 420 20 10 Output Total 300 500 Balance 120 -480 10 Weight 104.1 kg Intake: IV 20 10 Invasive Line 1 10 Invasive Line 2 10 10 Oral 420 Output: Urine 300 500 Other: Voiding Method External Catheter External Catheter External Catheter # Voids 1 # Bowel Movements 1 - Labs CBC & Chem 7: 07/11/22 09:11 07/11/22 09:11 Labs: Abnormal Lab Results - Last 24 Hours (Table) 07/10/22 07/10/22 07/10/22 Range/Units 08:14 11:27 16:31 POC Glucose (mg/dL) 157 H 216 H (70-110) mg/dL Procalcitonin 0.13 H (0.02-0.09) ng/mL 07/10/22 07/11/22 Range/Units 20:21 05:55 POC Glucose (mg/dL) 227 H 135 H (70-110) mg/dL Procalcitonin (0.02-0.09) ng/mL Microbiology - Last 24 Hours (Table) 07/08/22 17:15 Blood Culture - Preliminary Blood No Growth after 48 hours
[2022-07-11 16:26] LABS: Glucose,Whole Blood 162 mg/dL (70-110)
[2022-07-11] MEDS ORDERED: WARFARIN 0.5 MG TAB PO ONE (18:00)
[2022-07-11 20:13] LABS: Glucose,Whole Blood 203 mg/dL (70-110)
--- NOTE | 2022-07-11 20:36 | P.PN ---
Subjective Progress Note Date: 07/11/22 Patient is a 77-year-old female with a past medical history of COPD presents to ER with complaints of worsening shortness of breath for the past 7 days and weight gain about 3 pounds. Initial laboratory test showed WBC 3.9 hemoglobin 12.0 and platelets 145 BUN 23 and creatinine 0.86 AST 65 ALT 34 alk phos 186 and proBNP 1700 and procalcitonin level was 0.13. Albumin 2.5. Urinalysis negative for infection. COVID-19, influenza A B and RSV PCR not detected. 07/09/2022 Patient is currently lying in the bed. Patient is on Airvo 35 L at 30% FiO2. Patient has been afebrile overnight. Was having cough with brown sputum production. No complaints of chest pain.No nausea vomiting abdominal pain or diarrhea. Chest x-ray showed improving volume overload or pulmonary edema. Laboratory data showed WBC 3.3 hemoglobin 12.2 and platelets 136 INR 1.7 Sodium 137 potassium 4.1 chloride 103 bicarb is 30 BUN 25 and creatinine 0.98 and blood sugar is 197. Calcium 7.9. 07/10/2022 Patient is seen and evaluated in follow-up today with pulmonary and cardiology following. Patient continues to have shortness of breath and maintained on oxygen with pulmonary following and patient is receiving IV ceftriaxone and has finished a Zithromax. Patient is on Coumadin with pharmacy to dose and also being maintained on IV Lasix with dose being adjusted to 40 mg twice daily and will continue. Patient does continue on IV steroids and would recommend monitoring Accu-Cheks before meals and at bedtime and use sliding scale as needed. Patient does not normally wear oxygen in the outpatient setting and recommended wean FiO2 as tolerated and will evaluate for possible home O2 requirements. Patient is currently afebrile, denies chest pain or palpitations. Patient is reporting that she is eating with occasional nausea with no vomiting noted. Encouraged increase activity as tolerated. 07/11/2022 Patient is seen and evaluated in follow-up today currently maintained on IV Lasix and kidney function stable and diuresing well with cardiology and pulmonary following closely. Patient also maintained on IV steroids along with breathing treatments and 3 L of oxygen via nasal cannula. Patient continues to report a junky cough although reports is having some improvements in her shortness of breath. Patient reports not a significant improvement. Patient is afebrile maintained on antibiotics and will continue for now. Patient denies worsening shortness of breath, chest pains, or palpitations. No reports of nausea or vomiting and patient is tolerating diet. Encouraged increased activity as tolerated. Recommend follow-up labs to monitor electrolytes and kidney functions closely. Review of systems: Constitutional: No reports of fatigue, fever, or chills Cardiovascular: No reports of chest pain or palpitations Respiratory: No reports of worsening shortness of breath GI: No reports of nausea, vomiting, or diarrhea : No reports of dysuria or retention Neurovascular: reports of generalized weakness All medications have been reviewed Active Medications Acetaminophen (Acetaminophen Tab 325 Mg Tab) 650 mg PO Q6H PRN PRN Reason: Mild Pain or Fever > 100.5 Last Admin: 07/10/22 10:35 Dose: 650 mg Albuterol/Ipratropium (Ipratropium-Albuterol 3 Ml Neb) 3 ml INHALATION RT-QID [facility] Last Admin: 07/11/22 15:18 Dose: 3 ml Ascorbic Acid (Ascorbic Acid 500 Mg Tab) 1,000 mg PO DAILY [facility] Last Admin: 07/11/22 10:04 Dose: 1,000 mg Atenolol (Atenolol 50 Mg Tab) 100 mg PO DAILY PRN PRN Reason: HIGH BLOOD PRESSURE Budesonide (Budesonide 1 Mg/2 Ml Nebu) 1 mg INHALATION RT-BID [facility] Last Admin: 07/11/22 08:23 Dose: 1 mg Cholecalciferol (Cholecalciferol 25 Mcg (1000 Iu) Tablet) 25 mcg PO DAILY [facility] Last Admin: 07/11/22 10:04 Dose: 25 mcg Citalopram Hydrobromide (Citalopram Hydrobromide 20 Mg Tab) 20 mg PO HS [facility] Last Admin: 07/10/22 20:52 Dose: 20 mg Dextrose/Water (Dextrose 50% Syringe 50 Ml) 25 ml IVP PER PROTOCOL PRN; Protocol PRN Reason: Hypoglycemia Dextrose/Water (Dextrose 50% Syringe 50 Ml) 50 ml IVP PER PROTOCOL PRN; Dalila col PRN Reason: Hypoglycemia Ferrous Sulfate (Ferrous Sulfate 325 Mg Tab) 325 mg PO Q48H [facility] Last Admin: 07/10/22 10:31 Dose: 325 mg Furosemide (Furosemide 10 Mg/Ml 4 Ml Vial) 40 mg IV Q12HR [facility] Last Admin: 07/11/22 10:05 Dose: 40 mg Ceftriaxone Sodium 1 gm/ (Sodium Chloride) 50 mls @ 100 mls/hr IVPB Q24H [facility]; Protocol Last Admin: 07/10/22 20:52 Dose: 100 mls/hr Insulin Aspart (Insulin Aspart (Novolog) 100 Unit/Ml Vial) 0 unit SQ ACHS [facility]; Protocol Last Admin: 07/11/22 11:57 Dose: 2 unit Levothyroxine Sodium (Levothyroxine 50 Mcg Tab) 50 mcg PO DAILY@0630 [facility] Last Admin: 07/11/22 06:20 Dose: 50 mcg Magnesium Oxide (Magnesium Oxide 400 Mg Tab) 400 mg PO DAILY [facility] Last Admin: 07/11/22 10:05 Dose: 400 mg Methylprednisolone Sodium Succinate (Methylprednisolone Sod Succi 125 Mg/2 Ml Vial) 60 mg IV Q6HR [facility] Last Admin: 07/11/22 11:57 Dose: 60 mg Metoprolol Tartrate (Metoprolol Tartrate 50 Mg Tab) 50 mg PO BID [facility] Last Admin: 07/11/22 10:05 Dose: 50 mg Miscellaneous Information (Warfarin Per Pharmacy) 0 each MISCELLANE DIRECTED PRN PRN Reason: PHARMACY DOSING WARFARIN Naloxone HCl (Naloxone 0.4 Mg/Ml 1 Ml Vial) 0.2 mg IVP Q2M PRN PRN Reason: Opioid Reversal Pantoprazole Sodium (Pantoprazole 40 Mg Tablet) 40 mg PO AC-BRKFST [facility] Last Admin: 07/11/22 06:20 Dose: 40 mg Pramipexole Dihydrochloride (Pramipexole 0.125 Mg Tab) 0.125 mg PO BID [facility] Last Admin: 07/11/22 10:06 Dose: 0.125 mg Spironolactone (Spironolactone 25 Mg Tab) 25 mg PO DAILY [facility] Last Admin: 07/11/22 10:06 Dose: 25 mg Warfarin Sodium (Warfarin 0.5 Mg Tab) 0.5 mg PO ONCE@1800 ONE; Protocol Stop: 07/11/22 18:01 PHYSICAL EXAMINATION: Patient is sitting up in the bed comfortably, no acute distress, awake alert and oriented. Morbidly obese. Currently continued on 3 L HEENT: Normocephalic. Neck is supple. Pupils reactive. Nostrils clear. Oral cavity is moist. Neck reveals no JVD, carotid bruits, or thyromegaly. CHEST EXAMINATION: Trachea is central. Symmetrical expansion. Bilateral diffuse wheezing and rhonchi. Bibasilar diminished sounds. Nonlabored breathing. CARDIAC: Normal S1, S2 with no gallops. No murmurs ABDOMEN: Soft. Bowel sounds present. Nontender. No organomegaly. No abdominal bruits. Extremities: 3+ bilateral pedal edema. No clubbing or cyanosis Neurologically awake, alert, oriented. Able to move all extremities. No gross focal deficits noted Skin: No rash or skin lesions. Psychiatric: Cooperative. Non-suicidal, Musculoskeletal: No joint swelling or deformity. Normal range of motion. Assessment: Worsening shortness of breath which is multifactorial. Moderate persistent asthma with exacerbation Acute CHF with diastolic dysfunction Acute tracheobronchitis and possible pneumonia Obstructive sleep apnea not on CPAP at home Paroxysmal atrial fibrillation on anticoagulation with Coumadin. Subtherapeutic. Left atrial thrombus and currently being anticoagulated with warfarin. Patient is supposed to get LENNY, Watchman procedure as an outpatient on Saturday at [facility] although being rescheduled. Hypertension Morbid obesity with BMI of 40.7 Diabetes type 2 History of nonalcoholic hepatic steatosis History of GERD status post Ambrose fundoplication Hypothyroidism Right ovarian mass currently under investigation as an outpatient Prior history of smoking quit 36 years ago History of subdural hematoma in January 2022 Coumadin dosing GI prophylaxis No code Plan: Patient is currently on 3 L nasal cannula oxygen. Weaning FiO2 as tolerated with pulmonary and cardiology following Continued on IV diuresis with Lasix 40 mg every 12 hours follow-up with repeat labs in a.m., replace electrolytes per protocol Continue with methylprednisolone 60 mg every 6 hourly and DuoNebs. Antibiotics in the form of ceftriaxone and has completed azithromycin. Procalcitonin level is 0.13. Coumadin monitoring with pharmacy to dose Patient is supposed to follow-up with cardiology as an outpatient for Watchman procedure on Saturday with her student development coordinator at [facility] although pulmonary recommending to reschedule this appointment and cardiology was made aware. Prognosis Is guarded CODE STATUS is DNR/DNI. The impression and plan of care has been dictated by Melissa Diaz, Nurse Practitioner as directed. Dr. Roosevelt MD I have performed a history and examination and MDM of this patient, discussed the same with the dictator, and agree with the dictator's assessment and plan as written ,documented as a scribe. Based on total visit time, I have performed more than 50% of the visit. Objective - Vital Signs Vital signs: Vital Signs Temp 98.3 F 07/11/22 07:48 Pulse 74 07/11/22 08:36 Resp 20 07/11/22 07:48 BP 145/75 07/11/22 07:48 Pulse Ox 94 L 07/11/22 08:24 FiO2 29 07/09/22 08:00 Intake & Output 07/10/22 07/11/22 07/11/22 18:59 06:59 18:59 Intake Total 420 20 10 Output Total 300 500 Balance 120 -480 10 Weight 104.1 kg Intake: IV 20 10 Invasive Line 1 10 Invasive Line 2 10 10 Oral 420 Output: Urine 300 500 Other: Voiding Method External Catheter External Catheter External Catheter # Voids 1 # Bowel Movements 1 - Labs CBC & Chem 7: 07/11/22 09:11 07/11/22 09:11 Labs: Abnormal Lab Results - Last 24 Hours (Table) 07/10/22 07/10/22 07/10/22 Range/Units 08:14 11:27 16:31 MCV (80.0-100.0) fL Neutrophils # (1.3-7.7) k/uL Lymphocytes # (1.0-4.8) k/uL PT (9.0-12.0) sec INR (<1.2) Sodium (137-145) mmol/L Carbon Dioxide (22-30) mmol/L BUN (7-17) mg/dL Creatinine (0.52-1.04) mg/dL Glucose (74-99) mg/dL POC Glucose (mg/dL) 157 H 216 H (70-110) mg/dL Calcium (8.4-10.2) mg/dL Procalcitonin 0.13 H (0.02-0.09) ng/mL 07/10/22 07/11/22 07/11/22 Range/Units 20:21 05:55 09:11 MCV (80.0-100.0) fL Neutrophils # (1.3-7.7) k/uL Lymphocytes # (1.0-4.8) k/uL PT 25.6 H (9.0-12.0) sec INR 2.6 H (<1.2) Sodium (137-145) mmol/L Carbon Dioxide (22-30) mmol/L BUN (7-17) mg/dL Creatinine (0.52-1.04) mg/dL Glucose (74-99) mg/dL POC Glucose (mg/dL) 227 H 135 H (70-110) mg/dL Calcium (8.4-10.2) mg/dL Procalcitonin (0.02-0.09) ng/mL 07/11/22 07/11/22 Range/Units 09:11 09:11 MCV 103.2 H (80.0-100.0) fL Neutrophils # 9.9 H (1.3-7.7) k/uL Lymphocytes # 0.4 L (1.0-4.8) k/uL PT (9.0-12.0) sec INR (<1.2) Sodium 136 L (137-145) mmol/L Carbon Dioxide 31 H (22-30) mmol/L BUN 38 H (7-17) mg/dL Creatinine 1.10 H (0.52-1.04) mg/dL Glucose 251 H (74-99) mg/dL POC Glucose (mg/dL) (70-110) mg/dL Calcium 8.1 L (8.4-10.2) mg/dL Procalcitonin (0.02-0.09) ng/mL Microbiology - Last 24 Hours (Table) 07/08/22 17:15 Blood Culture - Preliminary Blood No Growth after 48 hours
[2022-07-11] MEDS: CITALOPRAM HYDROBROMIDE 20 MG TAB PO SCH (20:49)
[2022-07-11] MEDS: ACETAMINOPHEN TAB 325 MG TAB PO PRN (20:53)
[2022-07-11] MEDS ORDERED: METOPROLOL TARTRATE 50 MG TAB PO STA (23:24)
[2022-07-12 06:16] LABS: Glucose,Whole Blood 182 mg/dL (70-110)
[2022-07-12] MEDS: PANTOPRAZOLE 40 MG TABLET PO SCH (06:47)
[2022-07-12] MEDS: LEVOTHYROXINE 50 MCG TAB PO SCH (06:47)
[2022-07-12] MEDS: methylPREDNISolone SOD SUCCI 125 MG/2 ML VIAL IV SCH ×4 (06:47→23:41)
[2022-07-12] MEDS: INSULIN ASPART (NovoLOG) 100 UNIT/ML VIAL SQ SCH ×4 (06:48→20:08)
[2022-07-12] MEDS: MAGNESIUM OXIDE 400 MG TAB PO SCH (08:21)
[2022-07-12] MEDS: SPIRONOLACTONE 25 MG TAB PO SCH (08:21)
[2022-07-12] MEDS: CHOLECALCIFEROL 25 MCG (1000 IU) TABLET PO SCH (08:22)
[2022-07-12] MEDS: FERROUS SULFATE 325 MG TAB PO SCH (08:22)
[2022-07-12] MEDS: PRAMIPEXOLE 0.125 MG TAB PO SCH ×2 (08:22→20:09)
[2022-07-12] MEDS: METOPROLOL TARTRATE 50 MG TAB PO SCH ×2 (08:22→20:08)
[2022-07-12] MEDS: ASCORBIC ACID 500 MG TAB PO SCH (08:22)
[2022-07-12] MEDS: FUROSEMIDE 10 MG/ML 4 ML VIAL IV SCH ×2 (08:22→20:08)
[2022-07-12] MEDS: BUDESONIDE 1 MG/2 ML NEBU INHALATION SCH ×2 (08:51→21:23)
[2022-07-12] MEDS: IPRATROPIUM-ALBUTEROL 3 ML NEB INHALATION SCH ×4 (08:51→21:23)
--- NOTE | 2022-07-12 10:13 | P.PN ---
Subjective Progress Note Date: 07/12/22 Principal diagnosis: Shortness of breath. I'm seeing this patient in new consultation today 07/09/2022 for progressive shortness of breath starting yesterday. This is a 77-year-old white female with a significant medical history for congestive heart failure, moderate persistent asthma, atrial fibrillation, left atrial appendage thrombus, diabetes mellitus type 2, hypertension, hypothyroidism, nonalcoholic cirrhosis of the liver, brain bleed, mild obstructive sleep apnea, remote history of smoking 36 years ago. Patient presented yesterday for difficulty breathing that started on Saturday. Patient reports shortness breath especially when exerting herself or lying flat, wheezing, fluid retention in her lower extremities, weight gain of about 3 pounds, and heart palpitations. She also reports some upper respiratory tract infection symptoms such as runny nose, cough with brown sputum production, and chills. She denies any subjective fevers or chest pain. Patient does follow with Dr. Gupta in the office for management of her moderate persistent asthma and mild obstructive sleep apnea. Patient patient states that she takes albuterol and Symbicort on an outpatient basis. She also follows with a picker tender from [facility], and has a planned LENNY and watchman procedure this Saturday. Patient is currently resting in bed, on AIRVO 35 L and 30% high flow cannula, in no acute distress. Chest x-ray on arrival showed mild cardiomegaly with mild diffuse interstitial opacities. No obvious focal consolidation. NT proBNP was mildly elevated at 1700. CBC on arrival shows a non-elevated WBC count of 3.9, hemoglobin 12, hematocrit 37, platelets 145,000. Patient's INR on arrival was sub-therapeutic at 1.6. Patient does take Coumadin on outpatient basis. Patient has reported some minimal rectal bleeding on and Saturday of this previous week. No bleeding since reported. BMP shows a sodium 137, potassium 4.2, chloride 104, serum CO2 31, BUN 23, creatinine 0.86, glucose 113. Lactic acid 1.5. LFTs mildly elevated. Negative for influenza, RSV, COVID-19. Pro-calcitonin levels pending. Patient is currently receiving bronchodilators and IV Solu-Medrol. She is also receiving empiric antibiotics for community associated pneumonia. Remains afebrile. Vital signs are stable. Progress note dated 07/10/2022. 7-year-old patient seen for shortness of breath, in room 374, secondary to asthma exacerbation, and diastolic CHF. Currently, the patient's on 3 L of oxygen. She's not receiving any IV fluids. Clinically, she feels better. White count 16.5, hemoglobin 12.8, hematocrit 40, and platelet count is normal. PTT is 22 with an INR of 2.2. Sodium, potassium, chloride, CO2, and anion gap, are all normal. BUN is 30 with a creatinine of 1.14. Chest x-ray shows a pattern of improving volume status. Progress note dated 07/11/2022. 77-year-old female seen today in room 374. The patient was admitted with a diagnosis of asthma exacerbation, and diastolic CHF. The patient was to have a cardiac procedure done on Saturday, and an outside hospital. The patient should not have that done at this time. She remains on 2 L of oxygen. No IV fluids. Her daughter is in the room with her. The patient's only feeling marginally better. I did mention to the picker tender here, at her procedure should be canceled. White count 10.5, hemoglobin 12.5, hematocrit 39.5, with a normal platelet count. PT 25.6 with an INR 2.6. Sodium 136, potassium 4.2, chlorides 100, CO2 31, BUN 38, creatinine 1.10. Progress note dated 07/12/2022. 77-year-old patient seen in room 374. The patient states that she had a bad night last night, apparently developing atrial fibrillation. She is also quite bronchospastic and wheezy. Currently, she is on 2 L of oxygen. She's not receiving any IV fluids. Saturations are 97%. She was receiving a breathing treatment today, when we saw her in the room. No new labs today to report. Objective - Vital Signs Vital signs: Vital Signs Temp 98.1 F 07/12/22 03:15 Pulse 80 07/12/22 09:06 Resp 16 07/12/22 03:15 BP 126/68 07/12/22 03:15 Pulse Ox 97 07/12/22 08:52 FiO2 29 07/09/22 08:00 Intake & Output 07/11/22 07/12/22 07/12/22 18:59 06:59 18:59 Intake Total 250 70 118 Output Total 900 600 Balance -650 -530 118 Intake: IV 10 70 Invasive Line 2 10 70 Oral 240 118 Output: Urine 900 600 Other: Voiding Method External Catheter External Catheter # Bowel Movements 1 2 - Exam No acute distress, oriented 3. Currently on 2 L. Mild conversational dyspnea. Mild audible wheezes. HEENT examination is grossly unremarkable. Neck supple. Full range of motion. No adenopathy thyromegaly or neck vein distention. Cardiovascular examination reveals regular rhythm rate. S1-S2 normal. No S3 or S4. No discernible murmur noted. Heart rate 80 bpm. Heart sounds are distant. Lungs reveal scattered bibasilar crackles. A few scattered rhonchi. Minimal wheezes. Breath sounds equal bilaterally. Saturations are 97 % on 2 L. Abdomen soft bowel sounds are heard. No masses or tenderness. Extremities are intact. No cyanosis clubbing or edema. Skin is without rash or lesion. Neurologic examination is brief but nonfocal. - Labs CBC & Chem 7: 07/11/22 09:11 07/11/22 09:11 Labs: Abnormal Lab Results - Last 24 Hours (Table) 07/11/22 07/11/22 07/11/22 Range/Units 09:11 09:11 11:35 PT 25.6 H (9.0-12.0) sec INR 2.6 H (<1.2) Sodium 136 L (137-145) mmol/L Carbon Dioxide 31 H (22-30) mmol/L BUN 38 H (7-17) mg/dL Creatinine 1.10 H (0.52-1.04) mg/dL Glucose 251 H (74-99) mg/dL POC Glucose (mg/dL) 214 H (70-110) mg/dL Calcium 8.1 L (8.4-10.2) mg/dL 07/11/22 07/11/22 07/12/22 Range/Units 16:23 20:11 06:15 PT (9.0-12.0) sec INR (<1.2) Sodium (137-145) mmol/L Carbon Dioxide (22-30) mmol/L BUN (7-17) mg/dL Creatinine (0.52-1.04) mg/dL Glucose (74-99) mg/dL POC Glucose (mg/dL) 162 H 203 H 182 H (70-110) mg/dL Calcium (8.4-10.2) mg/dL Microbiology - Last 24 Hours (Table) 07/08/22 17:15 Blood Culture - Preliminary Blood No Growth after 72 hours Assessment and Plan Assessment: Acute exacerbation of asthma, as well as mild exacerbation of diastolic CHF, leading to hypoxemic respiratory failure. History of paroxysmal atrial fibrillation. History of subdural hematoma, January 2022. History of rectal bleeding. Type 2 diabetes mellitus. Essential hypertension. Morbid obesity. Nonalcoholic steatohepatitis. Gastroesophageal reflux disease, without esophagitis, status post Ambrose fundoplication. History of hypothyroidism. Mild obstructive sleep apnea syndrome. Previous history of tobacco use. Right ovarian mass. Plan: Plan dated 07/10/2022. The patient remains on appropriate medications. His oxygen. We did not give her a long-acting beta agonist, she has an intolerance to that. She is receiving albuterol sulfate, ipratropium bromide, and budesonide solution. She is also receiving corticosteroids. We will continue to follow make recommendations along the way. Prognosis is guarded. Plan dated 07/11/2022. The patient is not quite ready for discharge. The patient COPD/asthma still quite active. She continues on appropriate medications including bronchodilators, and steroids. Her cardiac procedure which was scheduled for Saturday, should be canceled. She will not get out of the hospital before Saturday. I did mention that to her current inpatient picker tender. We will continue to follow her and make recommendations along the way. Prognosis is guarded. Plan dated 07/12/2022. The patient's asthma exacerbation, has been hampered by her recent development of atrial fibrillation last night. She still quite bronchospastic. She is receiving appropriate medications. Labs, x-rays, and medications are all reviewed. Prognosis is certainly guarded. She obviously is not able to have the cardiac procedure scheduled for tomorrow. We will continue to follow the patient and make recommendations along the way. Time with Patient: Less than 30
[2022-07-12 10:47] LABS: Basophils % (A) 0 %; Eosinophils % (A) 0 %; HCT 39.8 % (34.0-46.0); Lymphocytes # (A) 0.3 k/uL (1.0-4.8); Lymphocytes % (A) 4 %; MCH 33.2 pg (25.0-35.0); MCHC 32.6 g/dL (31.0-37.0); MCV 101.7 fL (80.0-100.0); Macrocytosis Slight; Mean Platelet Volume 8.7; Monocytes # (A) 0.2 k/uL (0-1.0); Monocytes % (A) 2 %; Neutrophils # (A) 8.9 k/uL (1.3-7.7); Neutrophils % (A) 93 %; Platelet Count 160 k/uL (150-450); RBC 3.91 m/uL (3.80-5.40); RDW 14.1 % (11.5-15.5); WBC 9.6 k/uL (3.8-10.6)
[2022-07-12 10:58] LABS: Calcium 8.1 mg/dL (8.4-10.2); Magnesium 2.2 mg/dL (1.6-2.3); Potassium 4.5 mmol/L (3.5-5.1)
[2022-07-12 11:14] LABS: INR 2.7 (<1.2)
[2022-07-12 11:28] LABS: Glucose,Whole Blood 226 mg/dL (70-110)
[2022-07-12 14:02] VITALS: BMI 40.6
--- NOTE | 2022-07-12 15:01 | P.PN ---
Subjective Progress Note Date: 07/12/22 History of present illness: This is a 77 year old female patient with known history of intracranial bleed while on anticoagulation for paroxysmal atrial fibrillation, history of CVA as well with good recovery, previous MM a embolization, type 2 diabetes, hypertension, hyperlipidemia, noncritical coronary artery disease on catheterization November. She is a patient of Dr. ELVIRA Patton and follows with Dr. Lindsey and scheduled for watchman procedure on July 13. Patient presented with increasing shortness of breath appears to be COPD exacerbation with bronchial asthma. Patient complains of shortness of breath with exertion continues to wheezing which is worsened from yesterday. She has followed by pulmonary medicine as well. INR today is 2.2 and we will ask for Coumadin to be held tonight. Repeat blood work reveals WBC 16.5, hemoglobin 12.8, BUN 30 creatinine 1.14. 07/11 Patient states that she feels her breathing is a little bit better from yesterday but still having some wheezing. She is continued on IV steroids, inhaled steroids and nebulizer treatments as well as antibiotics. Patient has been resumed on her home cardiac medications. INR today is 2.6. She did not receive Coumadin last evening. Pharmacy is now dosing. 07/12 Patient is seen and reevaluated and continues to have wheezing. Patient went into A. fib with RVR in the evening and Dr. Connor was contacted and ordered 1 dose of metoprolol tartrate oral at 50 mg. Patient then converted early this morning and is in a sinus rhythm. Blood pressure 150/68. INR today is 2.7. Potassium 4.5, BUN 42 and creatinine 1.19. Physical examination: Gen: This is a 77-year-old female. She is resting but appears to be fairly comfortable at rest. VS: reviewed HEENT: Head is atraumatic, normocephalic. Pupils equal, round. Sclerae is anicteric. NECK: Supple. No JVD. . LUNGS: Bilateral expiratory wheeze. No intercostal retractions. HEART: Regular rate and rhythm. Short systolic murmur at the left sternal border. ABDOMEN: Soft No tenderness. EXTREMITIES: No pedal edema. No calf tenderness. NEUROLOGICAL: Patient is awake, alert and oriented x3. Assessment: COPD exacerbation/tracheobronchitis Bronchial asthma Acute diastolic heart failure Nonobstructive coronary artery disease Left atrial thrombus with plan for watchman procedure on Saturday-to be rescheduled Paroxysmal atrial fibrillation History of intracranial bleed History of CVA Hypertension Hyperlipidemia Diabetes mellitus type 2 Plan: Continue current cardiac medications Continue Coumadin, pharmacy dosing Continue on Lasix 40 mg IV every 12 hours, monitor I&O, daily weights, electrolytes and renal function Further recommendations to follow based upon clinical course Nurse practitioner note has been reviewed, I agree with documented findings and plan of care. Patient was seen and examined. Objective - Vital Signs Vital signs: Vital Signs Temp 97.8 F 07/12/22 12:00 Pulse 83 07/12/22 12:02 Resp 20 07/12/22 12:00 BP 150/68 07/12/22 12:00 Pulse Ox 95 07/12/22 12:00 FiO2 29 07/09/22 08:00 Intake & Output 07/11/22 07/12/22 07/12/22 18:59 06:59 18:59 Intake Total 250 70 476 Output Total 900 600 550 Balance -650 -530 -74 Weight 104.1 kg Intake: IV 10 70 Invasive Line 2 10 70 Oral 240 476 Output: Urine 900 600 550 Other: Voiding Method External Catheter External Catheter External Catheter # Bowel Movements 1 2 - Labs CBC & Chem 7: 07/12/22 09:54 07/12/22 09:54 Labs: Abnormal Lab Results - Last 24 Hours (Table) 07/11/22 07/11/22 07/12/22 Range/Units 16:23 20:11 06:15 MCV (80.0-100.0) fL Neutrophils # (1.3-7.7) k/uL Lymphocytes # (1.0-4.8) k/uL PT (9.0-12.0) sec INR (<1.2) Sodium (137-145) mmol/L Carbon Dioxide (22-30) mmol/L BUN (7-17) mg/dL Creatinine (0.52-1.04) mg/dL Glucose (74-99) mg/dL POC Glucose (mg/dL) 162 H 203 H 182 H (70-110) mg/dL Calcium (8.4-10.2) mg/dL 07/12/22 07/12/22 07/12/22 Range/Units 09:54 09:54 09:54 MCV 101.7 H (80.0-100.0) fL Neutrophils # 8.9 H (1.3-7.7) k/uL Lymphocytes # 0.3 L (1.0-4.8) k/uL PT 26.0 H (9.0-12.0) sec INR 2.7 H (<1.2) Sodium 135 L (137-145) mmol/L Carbon Dioxide 32 H (22-30) mmol/L BUN 42 H (7-17) mg/dL Creatinine 1.19 H (0.52-1.04) mg/dL Glucose 216 H (74-99) mg/dL POC Glucose (mg/dL) (70-110) mg/dL Calcium 8.1 L (8.4-10.2) mg/dL 07/12/22 Range/Units 11:26 MCV (80.0-100.0) fL Neutrophils # (1.3-7.7) k/uL Lymphocytes # (1.0-4.8) k/uL PT (9.0-12.0) sec INR (<1.2) Sodium (137-145) mmol/L Carbon Dioxide (22-30) mmol/L BUN (7-17) mg/dL Creatinine (0.52-1.04) mg/dL Glucose (74-99) mg/dL POC Glucose (mg/dL) 226 H (70-110) mg/dL Calcium (8.4-10.2) mg/dL Microbiology - Last 24 Hours (Table) 07/08/22 17:15 Blood Culture - Preliminary Blood No Growth after 72 hours
[2022-07-12 16:17] LABS: Glucose,Whole Blood 260 mg/dL (70-110)
[2022-07-12] MEDS ORDERED: WARFARIN 0.5 MG TAB PO ONE (18:00)
[2022-07-12 20:07] LABS: Glucose,Whole Blood 168 mg/dL (70-110)
[2022-07-12] MEDS: CITALOPRAM HYDROBROMIDE 20 MG TAB PO SCH (20:08)
--- NOTE | 2022-07-12 21:19 | P.PN ---
Subjective Progress Note Date: 07/12/22 Patient is a 77-year-old female with a past medical history of COPD presents to ER with complaints of worsening shortness of breath for the past 7 days and weight gain about 3 pounds. Initial laboratory test showed WBC 3.9 hemoglobin 12.0 and platelets 145 BUN 23 and creatinine 0.86 AST 65 ALT 34 alk phos 186 and proBNP 1700 and procalcitonin level was 0.13. Albumin 2.5. Urinalysis negative for infection. COVID-19, influenza A B and RSV PCR not detected. 07/09/2022 Patient is currently lying in the bed. Patient is on Airvo 35 L at 30% FiO2. Patient has been afebrile overnight. Was having cough with brown sputum production. No complaints of chest pain.No nausea vomiting abdominal pain or diarrhea. Chest x-ray showed improving volume overload or pulmonary edema. Laboratory data showed WBC 3.3 hemoglobin 12.2 and platelets 136 INR 1.7 Sodium 137 potassium 4.1 chloride 103 bicarb is 30 BUN 25 and creatinine 0.98 and blood sugar is 197. Calcium 7.9. 07/10/2022 Patient is seen and evaluated in follow-up today with pulmonary and cardiology following. Patient continues to have shortness of breath and maintained on oxygen with pulmonary following and patient is receiving IV ceftriaxone and has finished a Zithromax. Patient is on Coumadin with pharmacy to dose and also being maintained on IV Lasix with dose being adjusted to 40 mg twice daily and will continue. Patient does continue on IV steroids and would recommend monitoring Accu-Cheks before meals and at bedtime and use sliding scale as needed. Patient does not normally wear oxygen in the outpatient setting and recommended wean FiO2 as tolerated and will evaluate for possible home O2 requirements. Patient is currently afebrile, denies chest pain or palpitations. Patient is reporting that she is eating with occasional nausea with no vomiting noted. Encouraged increase activity as tolerated. 07/11/2022 Patient is seen and evaluated in follow-up today currently maintained on IV Lasix and kidney function stable and diuresing well with cardiology and pulmonary following closely. Patient also maintained on IV steroids along with breathing treatments and 3 L of oxygen via nasal cannula. Patient continues to report a junky cough although reports is having some improvements in her shortness of breath. Patient reports not a significant improvement. Patient is afebrile maintained on antibiotics and will continue for now. Patient denies worsening shortness of breath, chest pains, or palpitations. No reports of nausea or vomiting and patient is tolerating diet. Encouraged increased activity as tolerated. Recommend follow-up labs to monitor electrolytes and kidney functions closely. 07/12/2022 Patient is seen and evaluated in follow-up today and is maintained on telemetry monitoring with pulmonary and cardiology following. Patient reports there was an episode of atrial for ablation with RVR and cardiology was notified and given an extra dose of metoprolol and is currently sinus rhythm. Patient continues to report shortness of breath with wheezing and crackles noted. Patient is continued on IV steroids along with breathing treatments and pulmonary is following closely. Patient reports she feels quite frustrated with not getting better and wants to go home. Her follow-up LENNY for possible watchman device has been rescheduled. Patient is currently afebrile with no reports of chest pain or palpitations. No reports of nausea vomiting and patient tolerating diet. Encouraged oral intake. Review of systems: Constitutional: No reports of fatigue, fever, or chills Cardiovascular: No reports of chest pain or palpitations Respiratory: Reports of continued shortness of breath GI: No reports of nausea, vomiting, or diarrhea : No reports of dysuria or retention Neurovascular: reports of generalized weakness All medications have been reviewed Active Medications Acetaminophen (Acetaminophen Tab 325 Mg Tab) 650 mg PO Q6H PRN PRN Reason: Mild Pain or Fever > 100.5 Last Admin: 07/11/22 20:53 Dose: 650 mg Albuterol/Ipratropium (Ipratropium-Albuterol 3 Ml Neb) 3 ml INHALATION RT-QID [facility] Last Admin: 07/12/22 15:18 Dose: 3 ml Ascorbic Acid (Ascorbic Acid 500 Mg Tab) 1,000 mg PO DAILY [facility] Last Admin: 07/12/22 08:22 Dose: 1,000 mg Atenolol (Atenolol 50 Mg Tab) 100 mg PO DAILY PRN PRN Reason: HIGH BLOOD PRESSURE Budesonide (Budesonide 1 Mg/2 Ml Nebu) 1 mg INHALATION RT-BID [facility] Last Admin: 07/12/22 08:51 Dose: 1 mg Cholecalciferol (Cholecalciferol 25 Mcg (1000 Iu) Tablet) 25 mcg PO DAILY [facility] Last Admin: 07/12/22 08:22 Dose: 25 mcg Citalopram Hydrobromide (Citalopram Hydrobromide 20 Mg Tab) 20 mg PO HS [facility] Last Admin: 07/12/22 20:08 Dose: 20 mg Dextrose/Water (Dextrose 50% Syringe 50 Ml) 25 ml IVP PER PROTOCOL PRN; Protocol PRN Reason: Hypoglycemia Dextrose/Water (Dextrose 50% Syringe 50 Ml) 50 ml IVP PER PROTOCOL PRN; Protocol PRN Reason: Hypoglycemia Ferrous Sulfate (Ferrous Sulfate 325 Mg Tab) 325 mg PO Q48H [facility] Last Admin: 07/12/22 08:22 Dose: 325 mg Furosemide (Furosemide 10 Mg/Ml 4 Ml Vial) 40 mg IV Q12HR [facility] Last Admin: 07/12/22 20:08 Dose: 40 mg Ceftriaxone Sodium 1 gm/ (Sodium Chloride) 50 mls @ 100 mls/hr IVPB Q24H [facility]; Protocol Last Admin: 07/12/22 20:11 Dose: 100 mls/hr Insulin Aspart (Insulin Aspart (Novolog) 100 Unit/Ml Vial) 0 unit SQ ACHS [facility]; Protocol Last Admin: 07/12/22 20:08 Dose: 1 unit Levothyroxine Sodium (Levothyroxine 50 Mcg Tab) 50 mcg PO DAILY@0630 [facility] Last Admin: 07/12/22 06:47 Dose: 50 mcg Magnesium Oxide (Magnesium Oxide 400 Mg Tab) 400 mg PO DAILY [facility] Last Admin: 07/12/22 08:21 Dose: 400 mg Methylprednisolone Sodium Succinate (Methylprednisolone Sod Succi 125 Mg/2 Ml Vial) 60 mg IV Q6HR [facility] Last Admin: 07/12/22 16:56 Dose: 60 mg Metoprolol Tartrate (Metoprolol Tartrate 50 Mg Tab) 50 mg PO BID [facility] Last Admin: 07/12/22 20:08 Dose: 50 mg Miscellaneous Information (Warfarin Per Pharmacy) 0 each MISCELLANE DIRECTED PRN PRN Reason: PHARMACY DOSING WARFARIN Naloxone HCl (Naloxone 0.4 Mg/Ml 1 Ml Vial) 0.2 mg IVP Q2M PRN PRN Reason: Opioid Reversal Pantoprazole Sodium (Pantoprazole 40 Mg Tablet) 40 mg PO AC-BRKFST [facility] Last Admin: 07/12/22 06:47 Dose: 40 mg Pramipexole Dihydrochloride (Pramipexole 0.125 Mg Tab) 0.125 mg PO BID [facility] Last Admin: 07/12/22 20:09 Dose: 0.125 mg Spironolactone (Spironolactone 25 Mg Tab) 25 mg PO DAILY [facility] Last Admin: 07/12/22 08:21 Dose: 25 mg PHYSICAL EXAMINATION: Patient is lying in the bed comfortably, no acute distress, awake alert and oriented. Morbidly obese. Currently continued on 3 L HEENT: Normocephalic. Neck is supple. Pupils reactive. Nostrils clear. Oral cavity is moist. Neck reveals no JVD, carotid bruits, or thyromegaly. CHEST EXAMINATION: Trachea is central. Symmetrical expansion. Bilateral diffuse wheezing and rhonchi. Bibasilar diminished sounds. Nonlabored breathing. CARDIAC: S1, S2 are muffled, irregular ABDOMEN: Soft. Bowel sounds present. Nontender. No organomegaly. No abdominal bruits. Extremities: 3+ bilateral pedal edema. No clubbing or cyanosis Neurologically awake, alert, oriented. Able to move all extremities. No gross focal deficits noted Skin: No rash or skin lesions. Psychiatric: Cooperative. Non-suicidal, Musculoskeletal: No joint swelling or deformity. Normal range of motion. Assessment: Worsening shortness of breath which is multifactorial. Moderate persistent asthma with exacerbation Acute CHF with diastolic dysfunction Acute tracheobronchitis and possible pneumonia Obstructive sleep apnea not on CPAP at home Paroxysmal atrial fibrillation on anticoagulation with Coumadin. Subtherapeutic. Status post episode of atrial fibrillation with RVR on 07/12/2022 Left atrial thrombus and currently being anticoagulated with warfarin. Patient is supposed to get LENNY, Watchman procedure as an outpatient on Saturday at [facility] although being rescheduled. Hypertension Morbid obesity with BMI of 40.7 Diabetes type 2 History of nonalcoholic hepatic steatosis History of GERD status post Ambrose fundoplication Hypothyroidism Right ovarian mass currently under investigation as an outpatient Prior history of smoking quit 36 years ago History of subdural hematoma in January 2022 Coumadin dosing GI prophylaxis No code Plan: Patient is currently on 3 L nasal cannula oxygen. Weaning FiO2 as tolerated with pulmonary and cardiology following Continued on IV diuresis with Lasix 40 mg every 12 hours follow-up with repeat labs in a.m., replace electrolytes per protocol Continue with methylprednisolone 60 mg every 6 hourly and DuoNebs. Antibiotics in the form of ceftriaxone and has completed azithromycin. Procalcitonin level is 0.13. Coumadin monitoring with pharmacy to dose Patient is supposed to follow-up with cardiology as an outpatient for Watchman procedure on Saturday with her precision inspector at [facility] although pulmonary recommending to reschedule this appointment and cardiology was made aware. Prognosis Is guarded CODE STATUS is DNR/DNI. The impression and plan of care has been dictated by Melissa Diaz, Nurse Practitioner as directed. Dr. Roosevelt MD I have performed a history and examination and MDM of this patient, discussed the same with the dictator, and agree with the dictator's assessment and plan as written ,documented as a scribe. Based on total visit time, I have performed more than 50% of the visit. Objective - Vital Signs Vital signs: Vital Signs Temp 98.2 F 07/12/22 16:00 Pulse 81 07/12/22 16:00 Resp 18 07/12/22 16:00 BP 152/64 07/12/22 16:00 Pulse Ox 95 07/12/22 16:00 FiO2 29 07/09/22 08:00 Intake & Output 07/12/22 07/12/22 07/13/22 06:59 18:59 06:59 Intake Total 70 594 Output Total 600 550 Balance -530 44 Weight 104.1 kg Intake: IV 70 Invasive Line 2 70 Oral 594 Output: Urine 600 550 Other: Voiding Method External Catheter External Catheter # Bowel Movements 2 - Labs CBC & Chem 7: 07/12/22 09:54 07/12/22 09:54 Labs: Abnormal Lab Results - Last 24 Hours (Table) 07/12/22 07/12/22 07/12/22 Range/Units 06:15 09:54 09:54 MCV 101.7 H (80.0-100.0) fL Neutrophils # 8.9 H (1.3-7.7) k/uL Lymphocytes # 0.3 L (1.0-4.8) k/uL PT (9.0-12.0) sec INR (<1.2) Sodium 135 L (137-145) mmol/L Carbon Dioxide 32 H (22-30) mmol/L BUN 42 H (7-17) mg/dL Creatinine 1.19 H (0.52-1.04) mg/dL Glucose 216 H (74-99) mg/dL POC Glucose (mg/dL) 182 H (70-110) mg/dL Calcium 8.1 L (8.4-10.2) mg/dL 07/12/22 07/12/22 07/12/22 Range/Units 09:54 11:26 16:16 MCV (80.0-100.0) fL Neutrophils # (1.3-7.7) k/uL Lymphocytes # (1.0-4.8) k/uL PT 26.0 H (9.0-12.0) sec INR 2.7 H (<1.2) Sodium (137-145) mmol/L Carbon Dioxide (22-30) mmol/L BUN (7-17) mg/dL Creatinine (0.52-1.04) mg/dL Glucose (74-99) mg/dL POC Glucose (mg/dL) 226 H 260 H (70-110) mg/dL Calcium (8.4-10.2) mg/dL 07/12/22 Range/Units 20:06 MCV (80.0-100.0) fL Neutrophils # (1.3-7.7) k/uL Lymphocytes # (1.0-4.8) k/uL PT (9.0-12.0) sec INR (<1.2) Sodium (137-145) mmol/L Carbon Dioxide (22-30) mmol/L BUN (7-17) mg/dL Creatinine (0.52-1.04) mg/dL Glucose (74-99) mg/dL POC Glucose (mg/dL) 168 H (70-110) mg/dL Calcium (8.4-10.2) mg/dL Microbiology - Last 24 Hours (Table) 07/08/22 17:15 Blood Culture - Preliminary Blood No Growth after 96 hours
[2022-07-13 05:54] LABS: Glucose,Whole Blood 169 mg/dL (70-110)
[2022-07-13] MEDS: PANTOPRAZOLE 40 MG TABLET PO SCH (06:07)
[2022-07-13] MEDS: methylPREDNISolone SOD SUCCI 125 MG/2 ML VIAL IV SCH ×4 (06:07→23:06)
[2022-07-13] MEDS: INSULIN ASPART (NovoLOG) 100 UNIT/ML VIAL SQ SCH ×4 (06:08→20:00)
[2022-07-13] MEDS: LEVOTHYROXINE 50 MCG TAB PO SCH (06:13)
[2022-07-13] MEDS: METOPROLOL TARTRATE 50 MG TAB PO SCH ×2 (07:48→20:00)
[2022-07-13] MEDS: PRAMIPEXOLE 0.125 MG TAB PO SCH ×2 (07:48→20:00)
[2022-07-13] MEDS: SPIRONOLACTONE 25 MG TAB PO SCH (07:48)
[2022-07-13] MEDS: MAGNESIUM OXIDE 400 MG TAB PO SCH (07:48)
[2022-07-13] MEDS: ASCORBIC ACID 500 MG TAB PO SCH (07:48)
[2022-07-13] MEDS: CHOLECALCIFEROL 25 MCG (1000 IU) TABLET PO SCH (07:48)
[2022-07-13] MEDS: FUROSEMIDE 10 MG/ML 4 ML VIAL IV SCH ×2 (07:49→20:00)
[2022-07-13] MEDS: BUDESONIDE 1 MG/2 ML NEBU INHALATION SCH ×2 (08:21→21:10)
[2022-07-13] MEDS: IPRATROPIUM-ALBUTEROL 3 ML NEB INHALATION SCH ×4 (08:21→21:10)
[2022-07-13 09:00] LABS: INR 2.8 (<1.2); Prothrombin Time 26.9 sec (9.0-12.0)
[2022-07-13 09:06] LABS: Calcium 8.2 mg/dL (8.4-10.2); Potassium 4.6 mmol/L (3.5-5.1)
[2022-07-13 11:24] LABS: Glucose,Whole Blood 218 mg/dL (70-110)
--- NOTE | 2022-07-13 13:38 | P.PN ---
Subjective Progress Note Date: 07/13/22 Principal diagnosis: Shortness of breath. I'm seeing this patient in new consultation today 07/09/2022 for progressive shortness of breath starting yesterday. This is a 77-year-old white female with a significant medical history for congestive heart failure, moderate persistent asthma, atrial fibrillation, left atrial appendage thrombus, diabetes mellitus type 2, hypertension, hypothyroidism, nonalcoholic cirrhosis of the liver, brain bleed, mild obstructive sleep apnea, remote history of smoking 36 years ago. Patient presented yesterday for difficulty breathing that started on Saturday. Patient reports shortness breath especially when exerting herself or lying flat, wheezing, fluid retention in her lower extremities, weight gain of about 3 pounds, and heart palpitations. She also reports some upper respiratory tract infection symptoms such as runny nose, cough with brown sputum production, and chills. She denies any subjective fevers or chest pain. Patient does follow with Dr. Gupta in the office for management of her moderate persistent asthma and mild obstructive sleep apnea. Patient patient states that she takes albuterol and Symbicort on an outpatient basis. She also follows with a land clearer from [place], and has a planned LENNY and watchman procedure this Saturday. Patient is currently resting in bed, on AIRVO 35 L and 30% high flow cannula, in no acute distress. Chest x-ray on arrival showed mild cardiomegaly with mild diffuse interstitial opacities. No obvious focal consolidation. NT proBNP was mildly elevated at 1700. CBC on arrival shows a non-elevated WBC count of 3.9, hemoglobin 12, hematocrit 37, platelets 145,000. Patient's INR on arrival was sub-therapeutic at 1.6. Patient does take Coumadin on outpatient basis. Patient has reported some minimal rectal bleeding on and Saturday of this previous week. No bleeding since reported. BMP shows a sodium 137, potassium 4.2, chloride 104, serum CO2 31, BUN 23, creatinine 0.86, glucose 113. Lactic acid 1.5. LFTs mildly elevated. Negative for influenza, RSV, COVID-19. Pro-calcitonin levels pending. Patient is currently receiving bronchodilators and IV Solu-Medrol. She is also receiving empiric antibiotics for community associated pneumonia. Remains afebrile. Vital signs are stable. Progress note dated 07/10/2022. 7-year-old patient seen for shortness of breath, in room 374, secondary to asthma exacerbation, and diastolic CHF. Currently, the patient's on 3 L of oxygen. She's not receiving any IV fluids. Clinically, she feels better. White count 16.5, hemoglobin 12.8, hematocrit 40, and platelet count is normal. PTT is 22 with an INR of 2.2. Sodium, potassium, chloride, CO2, and anion gap, are all normal. BUN is 30 with a creatinine of 1.14. Chest x-ray shows a pattern of improving volume status. Progress note dated 07/11/2022. 77-year-old female seen today in room 374. The patient was admitted with a diagnosis of asthma exacerbation, and diastolic CHF. The patient was to have a cardiac procedure done on Saturday, and an outside hospital. The patient should not have that done at this time. She remains on 2 L of oxygen. No IV fluids. Her daughter is in the room with her. The patient's only feeling marginally better. I did mention to the land clearer here, at her procedure should be canceled. White count 10.5, hemoglobin 12.5, hematocrit 39.5, with a normal platelet count. PT 25.6 with an INR 2.6. Sodium 136, potassium 4.2, chlorides 100, CO2 31, BUN 38, creatinine 1.10. Progress note dated 07/12/2022. 77-year-old patient seen in room 374. The patient states that she had a bad night last night, apparently developing atrial fibrillation. She is also quite bronchospastic and wheezy. Currently, she is on 2 L of oxygen. She's not receiving any IV fluids. Saturations are 97%. She was receiving a breathing treatment today, when we saw her in the room. No new labs today to report. Progress note dated 07/13/2022. 77-year-old female seen in room 374. The patient complains of being short of breath, and quite bronchospastic. She feels like she can't cough up phlegm. Currently, she remains on 2 L of oxygen. She's not receiving any IV fluids. She remains on corticosteroids, inhaled corticosteroids, as well as albuterol sulfate and ipratropium bromide. She apparently cannot tolerate long-acting beta agonist, which is why she's not receiving them. PTT 26.9, INR 2.8. Sodium 137, potassium 4.6, chlorides 100, CO2 36, BUN 44, and creatinine 1.10. Glucose 229. Calcium is 8.2. Objective - Vital Signs Vital signs: Vital Signs Temp 97.9 F 07/13/22 12:12 Pulse 74 07/13/22 12:12 Resp 18 07/13/22 12:12 BP 149/69 07/13/22 12:12 Pulse Ox 96 07/13/22 12:12 FiO2 29 07/09/22 08:00 Intake & Output 07/12/22 07/13/22 07/13/22 18:59 06:59 18:59 Intake Total 594 240 476 Output Total 550 1600 600 Balance 44 -1360 -124 Weight 104.1 kg 104.7 kg Intake: Oral 594 240 476 Output: Urine 550 1600 600 Other: Voiding Method External Catheter External Catheter External Catheter # Voids 1 - Exam No acute distress, oriented 3. Currently on 2 L. Mild conversational dyspnea. Mild audible wheezes. HEENT examination is grossly unremarkable. Neck supple. Full range of motion. No adenopathy thyromegaly or neck vein distention. Cardiovascular examination reveals regular rhythm rate. S1-S2 normal. No S3 or S4. No discernible murmur noted. Heart rate 74 bpm. Heart sounds are distant. Lungs reveal scattered coarse bilateral expiratory rhonchi. Expiratory wheezes are noted. Breath sounds are equal bilaterally. No crackles. Breath sounds are diminished throughout. Saturations are 96 % on 2 L. Abdomen soft bowel sounds are heard. No masses or tenderness. Extremities are intact. No cyanosis clubbing or edema. Skin is without rash or lesion. Neurologic examination is brief but nonfocal. - Labs CBC & Chem 7: 07/12/22 09:54 07/13/22 08:30 Labs: Abnormal Lab Results - Last 24 Hours (Table) 07/12/22 07/12/22 07/13/22 Range/Units 16:16 20:06 05:53 PT (9.0-12.0) sec INR (<1.2) Carbon Dioxide (22-30) mmol/L BUN (7-17) mg/dL Creatinine (0.52-1.04) mg/dL Glucose (74-99) mg/dL POC Glucose (mg/dL) 260 H 168 H 169 H (70-110) mg/dL Calcium (8.4-10.2) mg/dL 07/13/22 07/13/22 07/13/22 Range/Units 08:30 08:30 11:22 PT 26.9 H (9.0-12.0) sec INR 2.8 H (<1.2) Carbon Dioxide 36 H (22-30) mmol/L BUN 44 H (7-17) mg/dL Creatinine 1.10 H (0.52-1.04) mg/dL Glucose 229 H (74-99) mg/dL POC Glucose (mg/dL) 218 H (70-110) mg/dL Calcium 8.2 L (8.4-10.2) mg/dL Microbiology - Last 24 Hours (Table) 07/08/22 17:15 Blood Culture - Preliminary Blood No Growth after 96 hours Assessment and Plan Assessment: Acute exacerbation of asthma, as well as mild exacerbation of diastolic CHF, leading to hypoxemic respiratory failure. History of paroxysmal atrial fibrillation. History of subdural hematoma, January 2022. History of rectal bleeding. Type 2 diabetes mellitus. Essential hypertension. Morbid obesity. Nonalcoholic steatohepatitis. Gastroesophageal reflux disease, without esophagitis, status post Ambrose fundoplication. History of hypothyroidism. Mild obstructive sleep apnea syndrome. Previous history of tobacco use. Right ovarian mass. Plan: Plan dated 07/10/2022. The patient remains on appropriate medications. His oxygen. We did not give her a long-acting beta agonist, she has an intolerance to that. She is receiving albuterol sulfate, ipratropium bromide, and budesonide solution. She is also receiving corticosteroids. We will continue to follow make recommendations along the way. Prognosis is guarded. Plan dated 07/11/2022. The patient is not quite ready for discharge. The patient COPD/asthma still quite active. She continues on appropriate medications including bronchodilators, and steroids. Her cardiac procedure which was scheduled for Saturday, should be canceled. She will not get out of the hospital before Saturday. I did mention that to her current inpatient land clearer. We will continue to follow her and make recommendations along the way. Prognosis is guarded. Plan dated 07/12/2022. The patient's asthma exacerbation, has been hampered by her recent development of atrial fibrillation last night. She still quite bronchospastic. She is receiving appropriate medications. Labs, x-rays, and medications are all rev iewed. Prognosis is certainly guarded. She obviously is not able to have the cardiac procedure scheduled for tomorrow. We will continue to follow the patient and make recommendations along the way. Plan dated 07/13/2022. The patient's asthma is still active. The patient still feels lots of wheezes and tightness in her chest. She's got a very bronchospastic cough. Is currently being managed with all the appropriate medications. It will just take time for her asthma to break. He cannot tolerate long-acting beta agonist. Labs, x-rays, medications are reviewed. We will continue to follow the patient and make recommendations along the way. Prognosis is certainly guarded in this patient. Time with Patient: Less than 30
--- NOTE | 2022-07-13 14:15 | P.PN ---
Subjective Progress Note Date: 07/13/22 History of present illness: This is a 77 year old female patient with known history of intracranial bleed while on anticoagulation for paroxysmal atrial fibrillation, history of CVA as well with good recovery, previous MM a embolization, type 2 diabetes, hypertension, hyperlipidemia, noncritical coronary artery disease on catheterization November. She is a patient of Dr. ELVIRA Patton and follows with Dr. Lindsey and scheduled for watchman procedure on July 13. Patient presented with increasing shortness of breath appears to be COPD exacerbation with bronchial asthma. Patient complains of shortness of breath with exertion continues to wheezing which is worsened from yesterday. She has followed by pulmonary medicine as well. INR today is 2.2 and we will ask for Coumadin to be held tonight. Repeat blood work reveals WBC 16.5, hemoglobin 12.8, BUN 30 creatinine 1.14. 07/11 Patient states that she feels her breathing is a little bit better from yesterday but still having some wheezing. She is continued on IV steroids, inhaled steroids and nebulizer treatments as well as antibiotics. Patient has been resumed on her home cardiac medications. INR today is 2.6. She did not receive Coumadin last evening. Pharmacy is now dosing. 07/12 Patient is seen and reevaluated and continues to have wheezing. Patient went into A. fib with RVR in the evening and Dr. Connor was contacted and ordered 1 dose of metoprolol tartrate oral at 50 mg. Patient then converted early this morning and is in a sinus rhythm. Blood pressure 150/68. INR today is 2.7. Potassium 4.5, BUN 42 and creatinine 1.19. 07/13 Patient continues to have wheezing and shortness of breath despite current treatment managed by pulmonary medicine. Her INR today is 2.8. Advise no Coumadin for tonight and recheck INR tomorrow. BUN 44 creatinine 1.1 and potassium 4.6. Physical examination: Gen: This is a 77-year-old female. She appears to be fairly comfortable at rest. VS: reviewed HEENT: Head is atraumatic, normocephalic. Pupils equal, round. Sclerae is anicteric. NECK: Supple. No JVD. LUNGS: Bilateral expiratory wheeze. No intercostal retractions. HEART: Regular rate and rhythm. Short systolic murmur at the left sternal border. ABDOMEN: Soft No tenderness. EXTREMITIES: No pedal edema. No calf tenderness. NEUROLOGICAL: Patient is awake, alert and oriented x3. Assessment: COPD exacerbation/tracheobronchitis Bronchial asthma Acute diastolic heart failure Nonobstructive coronary artery disease Left atrial thrombus with plan for watchman procedure-to be rescheduled Paroxysmal atrial fibrillation History of intracranial bleed History of CVA Hypertension Hyperlipidemia Diabetes mellitus type 2 Plan: Continue current cardiac medications Continue Coumadin, pharmacy dosing Continue on Lasix 40 mg IV every 12 hours, monitor I&O, daily weights, electrolytes and renal function Further recommendations to follow based upon clinical course Nurse practitioner note has been reviewed, I agree with documented findings and plan of care. Patient was seen and examined. Objective - Vital Signs Vital signs: Vital Signs Temp 97.7 F 07/13/22 07:31 Pulse 68 07/13/22 09:00 Resp 20 07/13/22 07:31 BP 158/72 07/13/22 07:31 Pulse Ox 96 07/13/22 07:31 FiO2 29 07/09/22 08:00 Intake & Output 07/12/22 07/13/22 07/13/22 18:59 06:59 18:59 Intake Total 594 240 358 Output Total 550 1600 100 Balance 44 -1360 258 Weight 104.1 kg 104.7 kg Intake: Oral 594 240 358 Output: Urine 550 1600 100 Other: Voiding Method External Catheter External Catheter External Catheter # Voids 1 - Labs CBC & Chem 7: 07/12/22 09:54 07/13/22 08:30 Labs: Abnormal Lab Results - Last 24 Hours (Table) 07/12/22 07/12/22 07/12/22 Range/Units 09:54 09:54 09:54 MCV 101.7 H (80.0-100.0) fL Neutrophils # 8.9 H (1.3-7.7) k/uL Lymphocytes # 0.3 L (1.0-4.8) k/uL PT 26.0 H (9.0-12.0) sec INR 2.7 H (<1.2) Sodium 135 L (137-145) mmol/L Carbon Dioxide 32 H (22-30) mmol/L BUN 42 H (7-17) mg/dL Creatinine 1.19 H (0.52-1.04) mg/dL Glucose 216 H (74-99) mg/dL POC Glucose (mg/dL) (70-110) mg/dL Calcium 8.1 L (8.4-10.2) mg/dL 07/12/22 07/12/22 07/12/22 Range/Units 11:26 16:16 20:06 MCV (80.0-100.0) fL Neutrophils # (1.3-7.7) k/uL Lymphocytes # (1.0-4.8) k/uL PT (9.0-12.0) sec INR (<1.2) Sodium (137-145) mmol/L Carbon Dioxide (22-30) mmol/L BUN (7-17) mg/dL Creatinine (0.52-1.04) mg/dL Glucose (74-99) mg/dL POC Glucose (mg/dL) 226 H 260 H 168 H (70-110) mg/dL Calcium (8.4-10.2) mg/dL 07/13/22 07/13/22 07/13/22 Range/Units 05:53 08:30 08:30 MCV (80.0-100.0) fL Neutrophils # (1.3-7.7) k/uL Lymphocytes # (1.0-4.8) k/uL PT 26.9 H (9.0-12.0) sec INR 2.8 H (<1.2) Sodium (137-145) mmol/L Carbon Dioxide 36 H (22-30) mmol/L BUN 44 H (7-17) mg/dL Creatinine 1.10 H (0.52-1.04) mg/dL Glucose 229 H (74-99) mg/dL POC Glucose (mg/dL) 169 H (70-110) mg/dL Calcium 8.2 L (8.4-10.2) mg/dL Microbiology - Last 24 Hours (Table) 07/08/22 17:15 Blood Culture - Preliminary Blood No Growth after 96 hours
--- NOTE | 2022-07-13 14:40 | P.PN ---
Subjective Progress Note Date: 07/13/22 Patient is a 77-year-old female with a past medical history of COPD presents to ER with complaints of worsening shortness of breath for the past 7 days and weight gain about 3 pounds. Initial laboratory test showed WBC 3.9 hemoglobin 12.0 and platelets 145 BUN 23 and creatinine 0.86 AST 65 ALT 34 alk phos 186 and proBNP 1700 and procalcitonin level was 0.13. Albumin 2.5. Urinalysis negative for infection. COVID-19, influenza A B and RSV PCR not detected. 07/09/2022 Patient is currently lying in the bed. Patient is on Airvo 35 L at 30% FiO2. Patient has been afebrile overnight. Was having cough with brown sputum production. No complaints of chest pain.No nausea vomiting abdominal pain or diarrhea. Chest x-ray showed improving volume overload or pulmonary edema. Laboratory data showed WBC 3.3 hemoglobin 12.2 and platelets 136 INR 1.7 Sodium 137 potassium 4.1 chloride 103 bicarb is 30 BUN 25 and creatinine 0.98 and blood sugar is 197. Calcium 7.9. 07/10/2022 Patient is seen and evaluated in follow-up today with pulmonary and cardiology following. Patient continues to have shortness of breath and maintained on oxygen with pulmonary following and patient is receiving IV ceftriaxone and has finished a Zithromax. Patient is on Coumadin with pharmacy to dose and also being maintained on IV Lasix with dose being adjusted to 40 mg twice daily and will continue. Patient does continue on IV steroids and would recommend monitoring Accu-Cheks before meals and at bedtime and use sliding scale as needed. Patient does not normally wear oxygen in the outpatient setting and recommended wean FiO2 as tolerated and will evaluate for possible home O2 requirements. Patient is currently afebrile, denies chest pain or palpitations. Patient is reporting that she is eating with occasional nausea with no vomiting noted. Encouraged increase activity as tolerated. 07/11/2022 Patient is seen and evaluated in follow-up today currently maintained on IV Lasix and kidney function stable and diuresing well with cardiology and pulmonary following closely. Patient also maintained on IV steroids along with breathing treatments and 3 L of oxygen via nasal cannula. Patient continues to report a junky cough although reports is having some improvements in her shortness of breath. Patient reports not a significant improvement. Patient is afebrile maintained on antibiotics and will continue for now. Patient denies worsening shortness of breath, chest pains, or palpitations. No reports of nausea or vomiting and patient is tolerating diet. Encouraged increased activity as tolerated. Recommend follow-up labs to monitor electrolytes and kidney functions closely. 07/12/2022 Patient is seen and evaluated in follow-up today and is maintained on telemetry monitoring with pulmonary and cardiology following. Patient reports there was an episode of atrial for ablation with RVR and cardiology was notified and given an extra dose of metoprolol and is currently sinus rhythm. Patient continues to report shortness of breath with wheezing and crackles noted. Patient is continued on IV steroids along with breathing treatments and pulmonary is following closely. Patient reports she feels quite frustrated with not getting better and wants to go home. Her follow-up LENNY for possible watchman device has been rescheduled. Patient is currently afebrile with no reports of chest pain or palpitations. No reports of nausea vomiting and patient tolerating diet. Encouraged oral intake. 07/13/2022 Patient is seen in follow-up this morning continues to be short of breath with wheezing and bronchospastic. Patient is maintained on inhalers along with breathing treatments, IV steroids, IV ceftriaxone along with IV Lasix with pulmonary and cardiology following closely. Patient is continued on 3 L via nasal cannula and reports does not wear any oxygen at home. Patient appears winded during conversation and takes multiple breaks to catch her breath. Will follow up on chest x-ray in the a.m. Patient is currently afebrile with no reports of chest pain or palpitations. Patient continues with a cough with difficulty expectorating any phlegm. No reports of nausea vomiting and patient is tolerating diet encourage small frequent meals. Patient is weak and with prolonged hospitalization would recommend possible physical therapy evaluation. Patient's blood sugars being monitored with Accu-Cheks and has sliding scale and will continue with current regimen. Review of systems: Constitutional: No reports of fatigue, fever, or chills Cardiovascular: No reports of chest pain or palpitations Respiratory: Reports of continued shortness of breath and bronchospastic cough with not much phlegm production GI: No reports of nausea, vomiting, or diarrhea : No reports of dysuria or retention Neurovascular: reports of generalized weakness All medications have been reviewed Active Medications Acetaminophen (Acetaminophen Tab 325 Mg Tab) 650 mg PO Q6H PRN PRN Reason: Mild Pain or Fever > 100.5 Last Admin: 07/11/22 20:53 Dose: 650 mg Albuterol/Ipratropium (Ipratropium-Albuterol 3 Ml Neb) 3 ml INHALATION RT-QID [facility] [place] Last Admin: 07/13/22 11:53 Dose: 3 ml Ascorbic Acid (Ascorbic Acid 500 Mg Tab) 1,000 mg PO DAILY [facility] [place] Last Admin: 07/13/22 07:48 Dose: 1,000 mg Atenolol (Atenolol 50 Mg Tab) 100 mg PO DAILY PRN PRN Reason: HIGH BLOOD PRESSURE Budesonide (Budesonide 1 Mg/2 Ml Nebu) 1 mg INHALATION RT-BID [facility] [place] Last Admin: 07/13/22 08:21 Dose: 1 mg Cholecalciferol (Cholecalciferol 25 Mcg (1000 Iu) Tablet) 25 mcg PO DAILY [facility] [place] Last Admin: 07/13/22 07:48 Dose: 25 mcg Citalopram Hydrobromide (Citalopram Hydrobromide 20 Mg Tab) 20 mg PO HS [facility] [place] Last Admin: 07/12/22 20:08 Dose: 20 mg Dextrose/Water (Dextrose 50% Syringe 50 Ml) 25 ml IVP PER PROTOCOL PRN; Protocol PRN Reason: Hypoglycemia Dextrose/Water (Dextrose 50% Syringe 50 Ml) 50 ml IVP PER PROTOCOL PRN; Protocol PRN Reason: Hypoglycemia Ferrous Sulfate (Ferrous Sulfate 325 Mg Tab) 325 mg PO Q48H [facility] [place] Last Admin: 07/12/22 08:22 Dose: 325 mg Furosemide (Furosemide 10 Mg/Ml 4 Ml Vial) 40 mg IV Q12HR [facility] [place] Last Admin: 07/13/22 07:49 Dose: 40 mg Ceftriaxone Sodium 1 gm/ (Sodium Chloride) 50 mls @ 100 mls/hr IVPB Q24H [facility] [place]; Protocol Last Admin: 07/12/22 20:11 Dose: 100 mls/hr Insulin Aspart (Insulin Aspart (Novolog) 100 Unit/Ml Vial) 0 unit SQ ACHS [facility] [place]; Protocol Last Admin: 07/13/22 11:43 Dose: 2 unit Levothyroxine Sodium (Levothyroxine 50 Mcg Tab) 50 mcg PO DAILY@0630 [facility] [place] Last Admin: 07/13/22 06:13 Dose: 50 mcg Magnesium Oxide (Magnesium Oxide 400 Mg Tab) 400 mg PO DAILY [facility] [place] Last Admin: 07/13/22 07:48 Dose: 400 mg Methylprednisolone Sodium Succinate (Methylprednisolone Sod Succi 125 Mg/2 Ml Vial) 60 mg IV Q6HR [facility] [place] Last Admin: 07/13/22 11:43 Dose: 60 mg Metoprolol Tartrate (Metoprolol Tartrate 50 Mg Tab) 50 mg PO BID [facility] [place] Last Admin: 07/13/22 07:48 Dose: 50 mg Miscellaneous Information (Warfarin Per Pharmacy) 0 each MISCELLANE DIRECTED PRN PRN Reason: PHARMACY DOSING WARFARIN Naloxone HCl (Naloxone 0.4 Mg/Ml 1 Ml Vial) 0.2 mg IVP Q2M PRN PRN Reason: Opioid Reversal Pantoprazole Sodium (Pantoprazole 40 Mg Tablet) 40 mg PO AC-BRKFST [facility] [place] Last Admin: 07/13/22 06:07 Dose: 40 mg Pramipexole Dihydrochloride (Pramipexole 0.125 Mg Tab) 0.125 mg PO BID [facility] [place] Last Admin: 07/13/22 07:48 Dose: 0.125 mg Spironolactone (Spironolactone 25 Mg Tab) 25 mg PO DAILY [facility] [place] Last Admin: 07/13/22 07:48 Dose: 25 mg Warfarin Sodium (Warfarin 0.5 Mg Tab) 0 mg PO ONCE@1800 ONE Stop: 07/13/22 18:01 Last Admin: 07/13/22 10:35 Dose: Not Given PHYSICAL EXAMINATION: Patient is sitting up in the bed comfortably, no acute distress, awake alert and oriented. Morbidly obese. Currently continued on 3 L HEENT: Normocephalic. Neck is supple. Pupils reactive. Nostrils clear. Oral cavity is moist. Neck reveals no JVD, carotid bruits, or thyromegaly. CHEST EXAMINATION: Trachea is central. Symmetrical expansion. Bilateral diffuse wheezing and rhonchi. Bibasilar diminished sounds. Nonlabored breathing. CARDIAC: S1, S2 are muffled, irregular ABDOMEN: Soft. Bowel sounds present. Nontender. No organomegaly. No abdominal bruits. Extremities: 3+ bilateral pedal edema. No clubbing or cyanosis Neurologically awake, alert, oriented. Able to move all extremities. No gross focal deficits noted Skin: No rash or skin lesions. Psychiatric: Cooperative. Non-suicidal, Musculoskeletal: No joint swelling or deformity. Normal range of motion. Assessment: Worsening shortness of breath which is multifactorial. Moderate persistent asthma with exacerbation Acute CHF with diastolic dysfunction Acute tracheobronchitis and possible pneumonia Obstructive sleep apnea not on CPAP at home Paroxysmal atrial fibrillation on anticoagulation with Coumadin. Subtherapeutic. Status post episode of atrial fibrillation with RVR on 07/12/2022 Left atrial thrombus and currently being anticoagulated with warfarin. Patient is supposed to get LENNY, Watchman procedure as an outpatient at [facility] although being rescheduled. Hypertension Morbid obesity with BMI of 40.7 Diabetes type 2 History of nonalcoholic hepatic steatosis History of GERD status post Ambrose fundoplication Hypothyroidism Right ovarian mass currently under investigation as an outpatient Prior history of smoking quit 36 years ago History of subdural hematoma in January 2022 Coumadin dosing GI prophylaxis No code Plan: Patient is currently on 3 L nasal cannula oxygen. Weaning FiO2 as tolerated with pulmonary and cardiology following Continued on IV diuresis with Lasix 40 mg every 12 hours follow-up with repeat labs in a.m., replace electrolytes per protocol Continue with methylprednisolone 60 mg every 6 hourly and DuoNebs. Antibiotics in the form of ceftriaxone and has completed azithromycin. Procalcitonin level is 0.13. Patient continues with shortness of breath and cough with some phlegm although not able to expectorate. Will follow-up with chest x-ray in the a.m. Recommend continue monitoring Accu-Cheks before meals and at bedtime and use sliding scale as patient is on steroids and having some elevated blood sugars with a known history of diabetes Coumadin monitoring with pharmacy to dose, INR today is 2.8 Patient was supposed to follow-up with cardiology as an outpatient for LENNY with possible Watchman procedure at [facility] today although needs to be rescheduled and has been canceled Encouraged increased activity as tolerated and encouraged oral intake. Patient has had prolonged hospitalization with weakness and would recommend possible physical therapy evaluation Prognosis Is guarded CODE STATUS is DNR/DNI. The impression and plan of care has been dictated by Melissa Diaz, Nurse Practitioner as directed. Dr. Roosevelt MD I have performed a history and examination and MDM of this patient, discussed the same with the dictator, and agree with the dictator's assessment and plan as written ,documented as a scribe. Based on total visit time, I have performed more than 50% of the visit. Objective - Vital Signs Vital signs: Vital Signs Temp 97.7 F 07/13/22 07:31 Pulse 68 07/13/22 09:00 Resp 20 07/13/22 07:31 BP 158/72 07/13/22 07:31 Pulse Ox 96 07/13/22 07:31 FiO2 29 07/09/22 08:00 Intake & Output 07/12/22 07/13/22 07/13/22 18:59 06:59 18:59 Intake Total 594 240 358 Output Total 550 1600 100 Balance 44 -1360 258 Weight 104.1 kg 104.7 kg Intake: Oral 594 240 358 Output: Urine 550 1600 100 Other: Voiding Method External Catheter External Catheter External Catheter # Voids 1 - Labs CBC & Chem 7: 07/12/22 09:54 07/13/22 08:30 Labs: Abnormal Lab Results - Last 24 Hours (Table) 07/12/22 07/12/22 07/12/22 Range/Units 09:54 09:54 09:54 MCV 101.7 H (80.0-100.0) fL Neutrophils # 8.9 H (1.3-7.7) k/uL Lymphocytes # 0.3 L (1.0-4.8) k/uL PT 26.0 H (9.0-12.0) sec INR 2.7 H (<1.2) Sodium 135 L (137-145) mmol/L Carbon Dioxide 32 H (22-30) mmol/L BUN 42 H (7-17) mg/dL Creatinine 1.19 H (0.52-1.04) mg/dL Glucose 216 H (74-99) mg/dL POC Glucose (mg/dL) (70-110) mg/dL Calcium 8.1 L (8.4-10.2) mg/dL 07/12/22 07/12/22 07/12/22 Range/Units 11:26 16:16 20:06 MCV (80.0-100.0) fL Neutrophils # (1.3-7.7) k/uL Lymphocytes # (1.0-4.8) k/uL PT (9.0-12.0) sec INR (<1.2) Sodium (137-145) mmol/L Carbon Dioxide (22-30) mmol/L BUN (7-17) mg/dL Creatinine (0.52-1.04) mg/dL Glucose (74-99) mg/dL POC Glucose (mg/dL) 226 H 260 H 168 H (70-110) mg/dL Calcium (8.4-10.2) mg/dL 07/13/22 07/13/22 07/13/22 Range/Units 05:53 08:30 08:30 MCV (80.0-100.0) fL Neutrophils # (1.3-7.7) k/uL Lymphocytes # (1.0-4.8) k/uL PT 26.9 H (9.0-12.0) sec INR 2.8 H (<1.2) Sodium (137-145) mmol/L Carbon Dioxide 36 H (22-30) mmol/L BUN 44 H (7-17) mg/dL Creatinine 1.10 H (0.52-1.04) mg/dL Glucose 229 H (74-99) mg/dL POC Glucose (mg/dL) 169 H (70-110) mg/dL Calcium 8.2 L (8.4-10.2) mg/dL Microbiology - Last 24 Hours (Table) 07/08/22 17:15 Blood Culture - Preliminary Blood No Growth after 96 hours
[2022-07-13 16:30] LABS: Glucose,Whole Blood 287 mg/dL (70-110)
[2022-07-13] MEDS ORDERED: WARFARIN 0.5 MG TAB PO ONE ×2 (18:00)
[2022-07-13 19:54] LABS: Glucose,Whole Blood 229 mg/dL (70-110)
[2022-07-13] MEDS: CITALOPRAM HYDROBROMIDE 20 MG TAB PO SCH (20:01)
[2022-07-14 06:08] LABS: Glucose,Whole Blood 221 mg/dL (70-110)
[2022-07-14] MEDS: INSULIN ASPART (NovoLOG) 100 UNIT/ML VIAL SQ SCH ×4 (06:30→20:11)
[2022-07-14] MEDS: LEVOTHYROXINE 50 MCG TAB PO SCH (06:31)
[2022-07-14] MEDS: methylPREDNISolone SOD SUCCI 125 MG/2 ML VIAL IV SCH ×4 (06:31→23:12)
[2022-07-14] MEDS: SPIRONOLACTONE 25 MG TAB PO SCH (09:32)
[2022-07-14] MEDS: METOPROLOL TARTRATE 50 MG TAB PO SCH ×2 (09:32→20:10)
[2022-07-14] MEDS: ASCORBIC ACID 500 MG TAB PO SCH (09:32)
[2022-07-14] MEDS: MAGNESIUM OXIDE 400 MG TAB PO SCH (09:32)
[2022-07-14] MEDS: PRAMIPEXOLE 0.125 MG TAB PO SCH ×2 (09:32→20:11)
[2022-07-14] MEDS: CHOLECALCIFEROL 25 MCG (1000 IU) TABLET PO SCH (09:32)
[2022-07-14] MEDS: FERROUS SULFATE 325 MG TAB PO SCH (09:32)
[2022-07-14] MEDS: FUROSEMIDE 10 MG/ML 4 ML VIAL IV SCH ×2 (09:32→20:10)
[2022-07-14] MEDS: IPRATROPIUM-ALBUTEROL 3 ML NEB INHALATION SCH ×4 (09:58→20:31)
[2022-07-14] MEDS: BUDESONIDE 1 MG/2 ML NEBU INHALATION SCH ×2 (09:59→20:32)
[2022-07-14 10:26] LABS: INR 2.8 (<1.2); Prothrombin Time 26.9 sec (9.0-12.0)
[2022-07-14 11:45] LABS: Glucose,Whole Blood 252 mg/dL (70-110)
--- NOTE | 2022-07-14 12:12 | P.PN ---
Subjective Progress Note Date: 07/14/22 Principal diagnosis: Shortness of breath. I'm seeing this patient in new consultation today 07/09/2022 for progressive shortness of breath starting yesterday. This is a 77-year-old white female with a significant medical history for congestive heart failure, moderate persistent asthma, atrial fibrillation, left atrial appendage thrombus, diabetes mellitus type 2, hypertension, hypothyroidism, nonalcoholic cirrhosis of the liver, brain bleed, mild obstructive sleep apnea, remote history of smoking 36 years ago. Patient presented yesterday for difficulty breathing that started on Saturday. Patient reports shortness breath especially when exerting herself or lying flat, wheezing, fluid retention in her lower extremities, weight gain of about 3 pounds, and heart palpitations. She also reports some upper respiratory tract infection symptoms such as runny nose, cough with brown sputum production, and chills. She denies any subjective fevers or chest pain. Patient does follow with Dr. Gupta in the office for management of her moderate persistent asthma and mild obstructive sleep apnea. Patient patient states that she takes albuterol and Symbicort on an outpatient basis. She also follows with a eap specialist from [place], and has a planned LENNY and watchman procedure this Saturday. Patient is currently resting in bed, on AIRVO 35 L and 30% high flow cannula, in no acute distress. Chest x-ray on arrival showed mild cardiomegaly with mild diffuse interstitial opacities. No obvious focal consolidation. NT proBNP was mildly elevated at 1700. CBC on arrival shows a non-elevated WBC count of 3.9, hemoglobin 12, hematocrit 37, platelets 145,000. Patient's INR on arrival was sub-therapeutic at 1.6. Patient does take Coumadin on outpatient basis. Patient has reported some minimal rectal bleeding on and Saturday of this previous week. No bleeding since reported. BMP shows a sodium 137, potassium 4.2, chloride 104, serum CO2 31, BUN 23, creatinine 0.86, glucose 113. Lactic acid 1.5. LFTs mildly elevated. Negative for influenza, RSV, COVID-19. Pro-calcitonin levels pending. Patient is currently receiving bronchodilators and IV Solu-Medrol. She is also receiving empiric antibiotics for community associated pneumonia. Remains afebrile. Vital signs are stable. Progress note dated 07/10/2022. 7-year-old patient seen for shortness of breath, in room 374, secondary to asthma exacerbation, and diastolic CHF. Currently, the patient's on 3 L of oxygen. She's not receiving any IV fluids. Clinically, she feels better. White count 16.5, hemoglobin 12.8, hematocrit 40, and platelet count is normal. PTT is 22 with an INR of 2.2. Sodium, potassium, chloride, CO2, and anion gap, are all normal. BUN is 30 with a creatinine of 1.14. Chest x-ray shows a pattern of improving volume status. Progress note dated 07/11/2022. 77-year-old female seen today in room 374. The patient was admitted with a diagnosis of asthma exacerbation, and diastolic CHF. The patient was to have a cardiac procedure done on Saturday, and an outside hospital. The patient should not have that done at this time. She remains on 2 L of oxygen. No IV fluids. Her daughter is in the room with her. The patient's only feeling marginally better. I did mention to the eap specialist here, at her procedure should be canceled. White count 10.5, hemoglobin 12.5, hematocrit 39.5, with a normal platelet count. PT 25.6 with an INR 2.6. Sodium 136, potassium 4.2, chlorides 100, CO2 31, BUN 38, creatinine 1.10. Progress note dated 07/12/2022. 77-year-old patient seen in room 374. The patient states that she had a bad night last night, apparently developing atrial fibrillation. She is also quite bronchospastic and wheezy. Currently, she is on 2 L of oxygen. She's not receiving any IV fluids. Saturations are 97%. She was receiving a breathing treatment today, when we saw her in the room. No new labs today to report. Progress note dated 07/13/2022. 77-year-old female seen in room 374. The patient complains of being short of breath, and quite bronchospastic. She feels like she can't cough up phlegm. Currently, she remains on 2 L of oxygen. She's not receiving any IV fluids. She remains on corticosteroids, inhaled corticosteroids, as well as albuterol sulfate and ipratropium bromide. She apparently cannot tolerate long-acting beta agonist, which is why she's not receiving them. PTT 26.9, INR 2.8. Sodium 137, potassium 4.6, chlorides 100, CO2 36, BUN 44, and creatinine 1.10. Glucose 229. Calcium is 8.2. Progress note dated 07/14/2022. 77-year-old female seen again in room 374. The patient complains of tightness i n her chest, shortness of breath, and bronchospasm. She's having a hard time coughing up any phlegm. She's currently on 2 L. She certainly no worse. She's not receiving any IV fluids. No new labs today other than a PT of 26.9 and an INR of 2.8. Glucose 252. Objective - Vital Signs Vital signs: Vital Signs Temp 98.6 F 07/14/22 09:24 Pulse 85 07/14/22 10:17 Resp 16 07/14/22 09:24 BP 168/84 07/14/22 09:24 Pulse Ox 93 L 07/14/22 09:59 FiO2 29 07/09/22 08:00 Intake & Output 07/13/22 07/14/22 07/14/22 18:59 06:59 18:59 Intake Total 594 485 120 Output Total 800 550 100 Balance -206 -65 20 Weight 104.1 kg Intake: Oral 594 485 120 Output: Urine 800 550 100 Other: Voiding Method External Catheter External Catheter External Catheter - Exam No acute distress, oriented 3. Currently on 2 L. Mild conversational dyspnea. Mild audible wheezes. HEENT examination is grossly unremarkable. Neck supple. Full range of motion. No adenopathy thyromegaly or neck vein distention. Cardiovascular examination reveals regular rhythm rate. S1-S2 normal. No S3 or S4. No discernible murmur noted. Heart rate 85 bpm. Heart sounds are distant. Lungs reveal scattered coarse bilateral expiratory rhonchi. Expiratory wheezes are noted. Breath sounds are equal bilaterally. No crackles. Breath sounds a re diminished throughout. Saturations are 93 % on 2 L. Abdomen soft bowel sounds are heard. No masses or tenderness. Extremities are intact. No cyanosis clubbing or edema. Skin is without rash or lesion. Neurologic examination is brief but nonfocal. - Labs CBC & Chem 7: 07/12/22 09:54 07/13/22 08:30 Labs: Abnormal Lab Results - Last 24 Hours (Table) 07/13/22 07/13/22 07/14/22 Range/Units 16:29 19:53 06:07 PT (9.0-12.0) sec INR (<1.2) POC Glucose (mg/dL) 287 H 229 H 221 H (70-110) mg/dL 07/14/22 07/14/22 Range/Units 08:54 11:33 PT 26.9 H (9.0-12.0) sec INR 2.8 H (<1.2) POC Glucose (mg/dL) 252 H (70-110) mg/dL Microbiology - Last 24 Hours (Table) 07/08/22 17:15 Blood Culture - Preliminary Blood No Growth after 120 hours Assessment and Plan Assessment: Acute exacerbation of asthma, as well as mild exacerbation of diastolic CHF, leading to hypoxemic respiratory failure. History of paroxysmal atrial fibrillation. History of subdural hematoma, January 2022. History of rectal bleeding. Type 2 diabetes mellitus. Essential hypertension. Morbid obesity. Nonalcoholic steatohepatitis. Gastroesophageal reflux disease, without esophagitis, status post Ambrose fundoplication. History of hypothyroidism. Mild obstructive sleep apnea syndrome. Previous history of tobacco use. Right ovarian mass. Plan: Plan dated 07/10/2022. The patient remains on appropriate medications. His oxygen. We did not give her a long-acting beta agonist, she has an intolerance to that. She is receiving albuterol sulfate, ipratropium bromide, and budesonide solution. She is also receiving corticosteroids. We will continue to follow make rec ommendations along the way. Prognosis is guarded. Plan dated 07/11/2022. The patient is not quite ready for discharge. The patient COPD/asthma still quite active. She continues on appropriate medications including bronchodilators, and steroids. Her cardiac procedure which was scheduled for Saturday, should be canceled. She will not get out of the hospital before Saturday. I did mention that to her current inpatient eap specialist. We will continue to follow her and make recommendations along the way. Prognosis is guarded. Plan dated 07/12/2022. The patient's asthma exacerbation, has been hampered by her recent development of atrial fibrillation last night. She still quite bronchospastic. She is receiving appropriate medications. Labs, x-rays, and medications are all reviewed. Prognosis is certainly guarded. She obviously is not able to have the cardiac procedure scheduled for tomorrow. We will continue to follow the patient and make recommendations along the way. Plan dated 07/13/2022. The patient's asthma is still active. The patient still feels lots of wheezes and tightness in her chest. She's got a very bronchospastic cough. Is currently being managed with all the appropriate medications. It will just take time for her asthma to break. He cannot tolerate long-acting beta agonist. Labs, x-rays, medications are reviewed. We will continue to follow the patient and make recommendations along the way. Prognosis is certainly guarded in this patient. Plan dated 07/14/2022. The patient is a bit better today, but not a lot better. She still feels quite tight in her chest, with significant bronchospasm and wheezing. Labs, x-rays, and medications are reviewed. Saturation is 93-94%. Labs, x-rays, and medications are all reviewed. We will continue to follow the patient and make recommendations along the way. I did mention to her, if she does not improve, come next week, she may benefit from bronchoscopy, and BAL. Prognosis is guarded. Time with Patient: Less than 30
--- NOTE | 2022-07-14 14:13 | P.PN ---
Subjective Progress Note Date: 07/14/22 History of present illness: This is a 77 year old female patient with known history of intracranial bleed while on anticoagulation for paroxysmal atrial fibrillation, history of CVA as well with good recovery, previous MM a embolization, type 2 diabetes, hypertension, hyperlipidemia, noncritical coronary artery disease on catheterization November. She is a patient of Dr. ELVIRA Patton and follows with Dr. Lindsey and scheduled for watchman procedure on July 13. Patient presented with increasing shortness of breath appears to be COPD exacerbation with bronchial asthma. Patient complains of shortness of breath with exertion continues to wheezing which is worsened from yesterday. She has followed by pulmonary medicine as well. INR today is 2.2 and we will ask for Coumadin to be held tonight. Repeat blood work reveals WBC 16.5, hemoglobin 12.8, BUN 30 creatinine 1.14. 07/11 Patient states that she feels her breathing is a little bit better from yesterday but still having some wheezing. She is continued on IV steroids, inhaled steroids and nebulizer treatments as well as antibiotics. Patient has been resumed on her home cardiac medications. INR today is 2.6. She did not receive Coumadin last evening. Pharmacy is now dosing. 07/12 Patient is seen and reevaluated and continues to have wheezing. Patient went into A. fib with RVR in the evening and Dr. Connor was contacted and ordered 1 dose of metoprolol tartrate oral at 50 mg. Patient then converted early this morning and is in a sinus rhythm. Blood pressure 150/68. INR today is 2.7. Potassium 4.5, BUN 42 and creatinine 1.19. 07/13 Patient continues to have wheezing and shortness of breath despite current treatment managed by pulmonary medicine. Her INR today is 2.8. Advise no Coumadin for tonight and recheck INR tomorrow. BUN 44 creatinine 1.1 and potassium 4.6. 07/14 She reports that her breathing is not good, feels the same as yesterday. She is on 2L NC O2. Breathing does improve some with breathing treatments. Denies any chest pain. [place] some palpitations overnight. NSR. INR 2.8, creat 1.1. Physical examination: Gen: This is a 77-year-old female. She appears to be fairly comfortable at rest. VS: reviewed HEENT: Head is atraumatic, normocephalic. Pupils equal, round. Sclerae is an icteric. NECK: Supple. No JVD. LUNGS: Bilateral expiratory and inspiratory wheeze, + rhonchi. No intercostal retractions. HEART: Regular rate and rhythm. Short systolic murmur at the left sternal b order. ABDOMEN: Soft No tenderness. EXTREMITIES: Trace pedal edema. No calf tenderness. NEUROLOGICAL: Patient is awake, alert and oriented x3. Assessment: COPD exacerbation/tracheobronchitis Bronchial asthma Acute diastolic heart failure Nonobstructive coronary artery disease Left atrial thrombus with plan for watchman procedure-to be rescheduled Paroxysmal atrial fibrillation History of intracranial bleed History of CVA Hypertension Hyperlipidemia Diabetes mellitus type 2 Plan: Shortness of breath is likely more related to lungs. Continue current cardiac medications. Continue Coumadin per pharmacy dosing.Continue diuresis with Lasix 40 mg IV every 12 hours and monitor I&O, daily weights, electrolytes and renal function. We will follow. Nurse practitioner note has been reviewed, I agree with documented findings and plan of care. Patient was seen and examined. Objective - Vital Signs Vital signs: Vital Signs Temp 98.6 F 07/14/22 09:24 Pulse 85 07/14/22 10:17 Resp 16 07/14/22 09:24 BP 168/84 07/14/22 09:24 Pulse Ox 93 L 07/14/22 09:59 FiO2 29 07/09/22 08:00 Intake & Output 07/13/22 07/14/22 07/14/22 18:59 06:59 18:59 Intake Total 594 485 120 Output Total 800 550 100 Balance -206 -65 20 Weight 104.1 kg Intake: Oral 594 485 120 Output: Urine 800 550 100 Other: Voiding Method External Catheter External Catheter External Catheter - Labs CBC & Chem 7: 07/12/22 09:54 07/13/22 08:30 Labs: Abnormal Lab Results - Last 24 Hours (Table) 07/13/22 07/13/22 07/14/22 Range/Units 16:29 19:53 06:07 PT (9.0-12.0) sec INR (<1.2) POC Glucose (mg/dL) 287 H 229 H 221 H (70-110) mg/dL 07/14/22 Range/Units 08:54 PT 26.9 H (9.0-12.0) sec INR 2.8 H (<1.2) POC Glucose (mg/dL) (70-110) mg/dL Microbiology - Last 24 Hours (Table) 07/08/22 17:15 Blood Culture - Preliminary Blood No Growth after 120 hours
[2022-07-14] MEDS: SENNOSIDES 8.6 MG TAB PO PRN (15:33)
[2022-07-14 16:46] LABS: Glucose,Whole Blood 209 mg/dL (70-110)
[2022-07-14] MEDS ORDERED: WARFARIN 1 MG TAB PO SCH (18:00)
[2022-07-14] MEDS ORDERED: WARFARIN 0.5 MG TAB PO ONE (18:00)
[2022-07-14 20:05] LABS: Glucose,Whole Blood 299 mg/dL (70-110)
[2022-07-14] MEDS: CITALOPRAM HYDROBROMIDE 20 MG TAB PO SCH (20:11)
--- NOTE | 2022-07-14 23:04 | P.PN ---
Subjective Progress Note Date: 07/14/22 Patient is a 77-year-old female with a past medical history of COPD presents to ER with complaints of worsening shortness of breath for the past 7 days and weight gain about 3 pounds. Initial laboratory test showed WBC 3.9 hemoglobin 12.0 and platelets 145 BUN 23 and creatinine 0.86 AST 65 ALT 34 alk phos 186 and proBNP 1700 and procalcitonin level was 0.13. Albumin 2.5. Urinalysis negative for infection. COVID-19, influenza A B and RSV PCR not detected. 07/09/2022 Patient is currently lying in the bed. Patient is on Airvo 35 L at 30% FiO2. Patient has been afebrile overnight. Was having cough with brown sputum production. No complaints of chest pain.No nausea vomiting abdominal pain or di arrhea. Chest x-ray showed improving volume overload or pulmonary edema. Laboratory data showed WBC 3.3 hemoglobin 12.2 and platelets 136 INR 1.7 Sodium 137 potassium 4.1 chloride 103 bicarb is 30 BUN 25 and creatinine 0.98 and blood sugar is 197. Calcium 7.9. 07/10/2022 Patient is seen and evaluated in follow-up today with pulmonary and cardiology following. Patient continues to have shortness of breath and maintained on oxygen with pulmonary following and patient is receiving IV ceftriaxone and has finished a Zithromax. Patient is on Coumadin with pharmacy to dose and also being maintained on IV Lasix with dose being adjusted to 40 mg twice daily and will continue. Patient does continue on IV steroids and would recommend monitoring Accu-Cheks before meals and at bedtime and use sliding scale as needed. Patient does not normally wear oxygen in the outpatient setting and recommended wean FiO2 as tolerated and will evaluate for possible home O2 requirements. Patient is currently afebrile, denies chest pain or palpitations. Patient is reporting that she is eating with occasional nausea with no vomiting noted. Encouraged increase activity as tolerated. 07/11/2022 Patient is seen and evaluated in follow-up today currently maintained on IV Lasix and kidney function stable and diuresing well with cardiology and pulmonary following closely. Patient also maintained on IV steroids along with breathing treatments and 3 L of oxygen via nasal cannula. Patient continues to report a junky cough although reports is having some improvements in her shortness of breath. Patient reports not a significant improvement. Patient is afebrile maintained on antibiotics and will continue for now. Patient denies worsening shortness of breath, chest pains, or palpitations. No reports of nausea or vomiting and patient is tolerating diet. Encouraged increased activity as tolerated. Recommend follow-up labs to monitor electrolytes and kidney functions closely. 07/12/2022 Patient is seen and evaluated in follow-up today and is maintained on telemetry monitoring with pulmonary and cardiology following. Patient reports there was an episode of atrial for ablation with RVR and cardiology was notified and given an extra dose of metoprolol and is currently sinus rhythm. Patient continues to report shortness of breath with wheezing and crackles noted. Patient is continued on IV steroids along with breathing treatments and pulmonary is following closely. Patient reports she feels quite frustrated with not getting better and wants to go home. Her follow-up LENNY for possible watchman device has been rescheduled. Patient is currently afebrile with no reports of chest pain or palpitations. No reports of nausea vomiting and patient tolerating diet. Encouraged oral intake. 07/13/2022 Patient is seen in follow-up this morning continues to be short of breath with wheezing and bronchospastic. Patient is maintained on inhalers along with breathing treatments, IV steroids, IV ceftriaxone along with IV Lasix with pulmonary and cardiology following closely. Patient is continued on 3 L via nasal cannula and reports does not wear any oxygen at home. Patient appears winded during conversation and takes multiple breaks to catch her breath. Will follow up on chest x-ray in the a.m. Patient is currently afebrile with no reports of chest pain or palpitations. Patient continues with a cough with difficulty expectorating any phlegm. No reports of nausea vomiting and patient is tolerating diet encourage small frequent meals. Patient is weak and with prolonged hospitalization would recommend possible physical therapy evaluation. Patient's blood sugars being monitored with Accu-Cheks and has sliding scale and will continue with current regimen. 07/14/2022 Patient is currently resting in the bed. Awake alert and oriented x3. Currently requiring 2 L oxygen via nasal cannula. Still complains of shortness of breath and tightness. Bilateral wheezing and scattered rhonchi especially in the basilar on physical exam. No complaints of chest pain. No nausea vomiting abdominal pain or diarrhea. Tolerating oral diet. Was also complaining of constipation. Patient is being continued on IV Solu-Medrol 60 mg every 6 hourly and is also on Lasix 40 mg every 12 IV. Pulmonary and cardiology is on board. Most recent Laboratory data reviewed. Review of systems: Constitutional: No reports of fatigue, fever, or chills Cardiovascular: No reports of chest pain or palpitations Respiratory: Reports of continued shortness of breath and bronchospastic cough with not much phlegm production GI: No reports of nausea, vomiting, or diarrhea : No reports of dysuria or retention Neurovascular: reports of generalized weakness All medications have been reviewed Active Medications Acetaminophen (Acetaminophen Tab 325 Mg Tab) 650 mg PO Q6H PRN PRN Reason: Mild Pain or Fever > 100.5 Last Admin: 07/11/22 20:53 Dose: 650 mg Albuterol/Ipratropium (Ipratropium-Albuterol 3 Ml Neb) 3 ml INHALATION RT-QID [facility] Last Admin: 07/13/22 11:53 Dose: 3 ml Ascorbic Acid (Ascorbic Acid 500 Mg Tab) 1,000 mg PO DAILY [facility] Last Admin: 07/13/22 07:48 Dose: 1,000 mg Atenolol (Atenolol 50 Mg Tab) 100 mg PO DAILY PRN PRN Reason: HIGH BLOOD PRESSURE Budesonide (Budesonide 1 Mg/2 Ml Nebu) 1 mg INHALATION RT-BID [facility] Last Admin: 07/13/22 08:21 Dose: 1 mg Cholecalciferol (Cholecalciferol 25 Mcg (1000 Iu) Tablet) 25 mcg PO DAILY [facility] Last Admin: 07/13/22 07:48 Dose: 25 mcg Citalopram Hydrobromide (Citalopram Hydrobromide 20 Mg Tab) 20 mg PO HS [facility] Last Admin: 07/12/22 20:08 Dose: 20 mg Dextrose/Water (Dextrose 50% Syringe 50 Ml) 25 ml IVP PER PROTOCOL PRN; Protocol PRN Reason: Hypoglycemia Dextrose/Water (Dextrose 50% Syringe 50 Ml) 50 ml IVP PER PROTOCOL PRN; Protocol PRN Reason: Hypoglycemia Ferrous Sulfate (Ferrous Sulfate 325 Mg Tab) 325 mg PO Q48H [facility] Last Admin: 07/12/22 08:22 Dose: 325 mg Furosemide (Furosemide 10 Mg/Ml 4 Ml Vial) 40 mg IV Q12HR [facility] Last Admin: 07/13/22 07:49 Dose: 40 mg Ceftriaxone Sodium 1 gm/ (Sodium Chloride) 50 mls @ 100 mls/hr IVPB Q24H [facility]; Protocol Last Admin: 07/12/22 20:11 Dose: 100 mls/hr Insulin Aspart (Insulin Aspart (Novolog) 100 Unit/Ml Vial) 0 unit SQ ACHS [facility]; Protocol Last Admin: 07/13/22 11:43 Dose: 2 unit Levothyroxine Sodium (Levothyroxine 50 Mcg Tab) 50 mcg PO DAILY@0630 [facility] Last Admin: 07/13/22 06:13 Dose: 50 mcg Magnesium Oxide (Magnesium Oxide 400 Mg Tab) 400 mg PO DAILY [facility] Last Admin: 07/13/22 07:48 Dose: 400 mg Methylprednisolone Sodium Succinate (Methylprednisolone Sod Succi 125 Mg/2 Ml Vial) 60 mg IV Q6HR [facility] Last Admin: 07/13/22 11:43 Dose: 60 mg Metoprolol Tartrate (Metoprolol Tartrate 50 Mg Tab) 50 mg PO BID [facility] Last Admin: 07/13/22 07:48 Dose: 50 mg Miscellaneous Information (Warfarin Per Pharmacy) 0 each MISCELLANE DIRECTED PRN PRN Reason: PHARMACY DOSING WARFARIN Naloxone HCl (Naloxone 0.4 Mg/Ml 1 Ml Vial) 0.2 mg IVP Q2M PRN PRN Reason: Opioid Reversal Pantoprazole Sodium (Pantoprazole 40 Mg Tablet) 40 mg PO AC-BRKFST [facility] Last Admin: 07/13/22 06:07 Dose: 40 mg Pramipexole Dihydrochloride (Pramipexole 0.125 Mg Tab) 0.125 mg PO BID [facility] Last Admin: 07/13/22 07:48 Dose: 0.125 mg Spironolactone (Spironolactone 25 Mg Tab) 25 mg PO DAILY [facility] Last Admin: 07/13/22 07:48 Dose: 25 mg Warfarin Sodium (Warfarin 0.5 Mg Tab) 0 mg PO ONCE@1800 ONE Stop: 07/13/22 18:01 Last Admin: 07/13/22 10:35 Dose: Not Given PHYSICAL EXAMINATION: Patient is sitting up in the bed comfortably, no acute distress, awake alert and oriented. Morbidly obese. Currently continued on 3 L HEENT: Normocephalic. Neck is supple. Pupils reactive. Nostrils clear. Oral cavity is moist. Neck reveals no JVD, carotid bruits, or thyromegaly. CHEST EXAMINATION: Trachea is central. Symmetrical expansion. Bilateral diffuse wheezing and rhonchi. Bibasilar diminished sounds. Nonlabored breathing. CARDIAC: S1, S2 are muffled, irregular ABDOMEN: Soft. Bowel sounds present. Nontender. No organomegaly. No abdominal bruits. Extremities: 3+ bilateral pedal edema. No clubbing or cyanosis Neurologically awake, alert, oriented. Able to move all extremities. No gross focal deficits noted Skin: No rash or skin lesions. Psychiatric: Cooperative. Non-suicidal, Musculoskeletal: No joint swelling or deformity. Normal range of motion. Assessment: Worsening shortness of breath which is multifactorial. Moderate persistent asthma with exacerbation Acute CHF with diastolic dysfunction Acute tracheobronchitis and possible pneumonia Obstructive sleep apnea not on CPAP at home Paroxysmal atrial fibrillation on anticoagulation with Coumadin. Subtherapeutic. Status post episode of atrial fibrillation with RVR on 07/12/2022 Left atrial thrombus and currently being anticoagulated with warfarin. Patient is supposed to get LENNY, Watchman procedure as an outpatient at [facility] although being rescheduled. Hypertension Morbid obesity with BMI of 40.7 Diabetes type 2 History of nonalcoholic hepatic steatosis History of GERD status post Ambrose fundoplication Hypothyroidism Right ovarian mass currently under investigation as an outpatient Prior history of smoking quit 36 years ago History of subdural hematoma in January 2022 Coumadin dosing GI prophylaxis No code Plan: Patient is currently on 3 L nasal cannula oxygen. Weaning FiO2 as tolerated [facility] pulmonary and cardiology following Continued on IV diuresis with Lasix 40 mg every 12 hours follow-up with repeat labs in a.m., replace electrolytes per protocol Continue with methylprednisolone 60 mg every 6 hourly and DuoNebs. Antibiotics in the form of ceftriaxone and has completed azithromycin. Procalcitonin level is 0.13.Follow-up repeat procalcitonin level. Patient continues with shortness of breath and cough with some phlegm although not able to expectorate. Recommend continue monitoring Accu-Cheks before meals and at bedtime and use sliding scale as patient is on steroids and having some elevated blood sugars with a known history of diabetes Coumadin monitoring with pharmacy to dose, INR Patient was supposed to follow-up with cardiology as an outpatient for LENNY with possible Watchman procedure at [facility] on 07/13 although needs to be rescheduled and has been canceled Encouraged increased activity as tolerated and encouraged oral intake. Patient has had prolonged hospitalization with weakness and would recommend possible physical therapy evaluation Prognosis Is guarded CODE STATUS is DNR/DNI. Objective - Vital Signs Vital signs: Vital Signs Temp 98.0 F 07/14/22 15:26 Pulse 84 07/14/22 16:28 Resp 18 07/14/22 15:26 BP 150/68 07/14/22 15:26 Pulse Ox 94 L 07/14/22 15:26 FiO2 29 07/09/22 08:00 Intake & Output 07/14/22 07/14/22 07/15/22 06:59 18:59 06:59 Intake Total 485 356 Output Total 550 100 Balance -65 256 Weight 104.1 kg Intake: Oral 485 356 Output: Urine 550 100 Other: Voiding Method External Catheter External Catheter # Bowel Movements 1 - Labs CBC & Chem 7: 07/12/22 09:54 07/13/22 08:30 Labs: Abnormal Lab Results - Last 24 Hours (Table) 07/14/22 07/14/22 07/14/22 Range/Units 06:07 08:54 11:33 PT 26.9 H (9.0-12.0) sec INR 2.8 H (<1.2) POC Glucose (mg/dL) 221 H 252 H (70-110) mg/dL 07/14/22 07/14/22 Range/Units 16:34 20:03 PT (9.0-12.0) sec INR (<1.2) POC Glucose (mg/dL) 209 H 299 H (70-110) mg/dL Microbiology - Last 24 Hours (Table) 07/08/22 17:15 Blood Culture - Final Blood No Growth after 144 hours
[2022-07-15 06:13] LABS: Glucose,Whole Blood 204 mg/dL (70-110)
[2022-07-15] MEDS: methylPREDNISolone SOD SUCCI 125 MG/2 ML VIAL IV SCH ×4 (06:17→23:41)
[2022-07-15] MEDS: LEVOTHYROXINE 50 MCG TAB PO SCH (06:17)
[2022-07-15] MEDS: PANTOPRAZOLE 40 MG TABLET PO SCH (06:17)
[2022-07-15] MEDS: INSULIN ASPART (NovoLOG) 100 UNIT/ML VIAL SQ SCH ×4 (06:18→21:02)
[2022-07-15] MEDS: SPIRONOLACTONE 25 MG TAB PO SCH (07:40)
[2022-07-15] MEDS: PRAMIPEXOLE 0.125 MG TAB PO SCH ×2 (07:40→21:01)
[2022-07-15] MEDS: FUROSEMIDE 10 MG/ML 4 ML VIAL IV SCH ×2 (07:40→21:02)
[2022-07-15] MEDS: CHOLECALCIFEROL 25 MCG (1000 IU) TABLET PO SCH (07:40)
[2022-07-15] MEDS: MAGNESIUM OXIDE 400 MG TAB PO SCH (07:40)
[2022-07-15] MEDS: METOPROLOL TARTRATE 50 MG TAB PO SCH ×2 (07:40→21:01)
[2022-07-15] MEDS: SENNOSIDES 8.6 MG TAB PO PRN ×2 (07:40→21:02)
[2022-07-15] MEDS: ASCORBIC ACID 500 MG TAB PO SCH (07:40)
[2022-07-15] MEDS: ACETAMINOPHEN TAB 325 MG TAB PO PRN ×2 (07:42→21:01)
[2022-07-15] MEDS: IPRATROPIUM-ALBUTEROL 3 ML NEB INHALATION SCH ×4 (08:51→20:06)
[2022-07-15] MEDS: BUDESONIDE 1 MG/2 ML NEBU INHALATION SCH ×2 (08:52→20:07)
[2022-07-15 09:59] LABS: Basophils % (A) 0 %; Eosinophils % (A) 0 %; HCT 43.8 % (34.0-46.0); HGB 14.2 gm/dL (11.4-16.0); Lymphocytes # (A) 0.3 k/uL (1.0-4.8); Lymphocytes % (A) 3 %; MCH 32.8 pg (25.0-35.0); MCHC 32.5 g/dL (31.0-37.0); MCV 101.2 fL (80.0-100.0); Macrocytosis Slight; Mean Platelet Volume 8.5; Monocytes # (A) 0.3 k/uL (0-1.0); Monocytes % (A) 3 %; Neutrophils # (A) 8.7 k/uL (1.3-7.7); Neutrophils % (A) 94 %; Platelet Count 127 k/uL (150-450); RBC 4.33 m/uL (3.80-5.40); RDW 14.2 % (11.5-15.5); WBC 9.3 k/uL (3.8-10.6)
[2022-07-15 10:08] LABS: INR 2.8 (<1.2); Prothrombin Time 27.1 sec (9.0-12.0)
[2022-07-15 10:13] LABS: Calcium 8.4 mg/dL (8.4-10.2); Potassium 5.1 mmol/L (3.5-5.1)
[2022-07-15 12:02] LABS: Glucose,Whole Blood 230 mg/dL (70-110)
[2022-07-15] MEDS: INSULIN DETEMIR (LEVEMIR) 100 UNIT/ML SYR SQ SCH (12:17)
--- NOTE | 2022-07-15 12:54 | P.PN ---
Subjective Progress Note Date: 07/15/22 Principal diagnosis: Shortness of breath. I'm seeing this patient in new consultation today 07/09/2022 for progressive shortness of breath starting yesterday. This is a 77-year-old white female with a significant medical history for congestive heart failure, moderate persistent asthma, atrial fibrillation, left atrial appendage thrombus, diabetes mellitus type 2, hypertension, hypothyroidism, nonalcoholic cirrhosis of the liver, brain bleed, mild obstructive sleep apnea, remote history of smoking 36 years ago. Patient presented yesterday for difficulty breathing that started on Saturday. Patient reports shortness breath especially when exerting herself or lying flat, wheezing, fluid retention in her lower extremities, weight gain of about 3 pounds, and heart palpitations. She also reports some upper respiratory tract infection symptoms such as runny nose, cough with brown sputum production, and chills. She denies any subjective fevers or chest pain. Patient does follow with Dr. Gupta in the office for management of her moderate persistent asthma and mild obstructive sleep apnea. Patient patient states that she takes albuterol and Symbicort on an outpatient basis. She also follows with a air crew officer from [place], and has a planned LENNY and watchman procedure this Saturday. Patient is currently resting in bed, on AIRVO 35 L and 30% high flow cannula, in no acute distress. Chest x-ray on arrival showed mild cardiomegaly with mild diffuse interstitial opacities. No obvious focal consolidation. NT proBNP was mildly elevated at 1700. CBC on arrival shows a non-elevated WBC count of 3.9, hemoglobin 12, hematocrit 37, platelets 145,000. Patient's INR on arrival was sub-therapeutic at 1.6. Patient does take Coumadin on outpatient basis. Patient has reported some minimal rectal bleeding on and Saturday of this previous week. No bleeding since reported. BMP shows a sodium 137, potassium 4.2, chloride 104, serum CO2 31, BUN 23, creatinine 0.86, glucose 113. Lactic acid 1.5. LFTs mildly elevated. Negative for influenza, RSV, COVID-19. Pro-calcitonin levels pending. Patient is currently receiving bronchodilators and IV Solu-Medrol. She is also receiving empiric antibiotics for community associated pneumonia. Remains afebrile. Vital signs are stable. Progress note dated 07/10/2022. 7-year-old patient seen for shortness of breath, in room 374, secondary to asthma exacerbation, and diastolic CHF. Currently, the patient's on 3 L of oxygen. She's not receiving any IV fluids. Clinically, she feels better. White count 16.5, hemoglobin 12.8, hematocrit 40, and platelet count is normal. PTT is 22 with an INR of 2.2. Sodium, potassium, chloride, CO2, and anion gap, are all normal. BUN is 30 with a creatinine of 1.14. Chest x-ray shows a pattern of improving volume status. Progress note dated 07/11/2022. 77-year-old female seen today in room 374. The patient was admitted with a diagnosis of asthma exacerbation, and diastolic CHF. The patient was to have a cardiac procedure done on Saturday, and an outside hospital. The patient should not have that done at this time. She remains on 2 L of oxygen. No IV fluids. Her daughter is in the room with her. The patient's only feeling marginally better. I did mention to the air crew officer here, at her procedure should be canceled. White count 10.5, hemoglobin 12.5, hematocrit 39.5, with a normal platelet count. PT 25.6 with an INR 2.6. Sodium 136, potassium 4.2, chlorides 100, CO2 31, BUN 38, creatinine 1.10. Progress note dated 07/12/2022. 77-year-old patient seen in room 374. The patient states that she had a bad night last night, apparently developing atrial fibrillation. She is also quite bronchospastic and wheezy. Currently, she is on 2 L of oxygen. She's not receiving any IV fluids. Saturations are 97%. She was receiving a breathing treatment today, when we saw her in the room. No new labs today to report. Progress note dated 07/13/2022. 77-year-old female seen in room 374. The patient complains of being short of breath, and quite bronchospastic. She feels like she can't cough up phlegm. Currently, she remains on 2 L of oxygen. She's not receiving any IV fluids. She remains on corticosteroids, inhaled corticosteroids, as well as albuterol sulfate and ipratropium bromide. She apparently cannot tolerate long-acting beta agonist, which is why she's not receiving them. PTT 26.9, INR 2.8. Sodium 137, potassium 4.6, chlorides 100, CO2 36, BUN 44, and creatinine 1.10. Glucose 229. Calcium is 8.2. Progress note dated 07/14/2022. 77-year-old female seen again in room 374. The patient complains of tightness i n her chest, shortness of breath, and bronchospasm. She's having a hard time coughing up any phlegm. She's currently on 2 L. She certainly no worse. She's not receiving any IV fluids. No new labs today other than a PT of 26.9 and an INR of 2.8. Glucose 252. Progress note dated 07/15/2022. 77-year-old female seen today in room 374. Today she sitting up in the chair. Currently, she is on 2 L of oxygen. She's not receiving IV fluids. She does feel a bit better today. She still has shortness of breath, chest tightness, and cough, with bronchospasm. Labs today include a white count 9.3, hemoglobin 14.2, hematocrit 43.8, and a platelet count of 127,000. PTT is 27.1, with an INR of 2.8. Sodium 137, potassium 5.1, chlorides 97, CO2 35, BUN 52, and creatinine 1.14. Objective - Vital Signs Vital signs: Vital Signs Temp 98.2 F 07/15/22 07:33 Pulse 79 07/15/22 12:15 Resp 20 07/15/22 12:15 BP 155/89 07/15/22 12:15 Pulse Ox 94 L 07/15/22 12:15 FiO2 29 07/09/22 08:00 Intake & Output 07/14/22 07/15/22 07/15/22 18:59 06:59 18:59 Intake Total 356 360 Output Total 100 950 Balance 256 -950 360 Weight 103.7 kg Intake: Oral 356 360 Output: Urine 100 950 Other: Voiding Method External Catheter External Catheter External Catheter # Bowel Movements 1 - Exam No acute distress, oriented 3. Currently on 2 L. Mild conversational dyspnea. Mild audible wheezes. HEENT examination is grossly unremarkable. Neck supple. Full range of motion. No adenopathy thyromegaly or neck vein d istention. Cardiovascular examination reveals regular rhythm rate. S1-S2 normal. No S3 or S4. No discernible murmur noted. Heart rate 1 bpm. Heart sounds are distant. Lungs reveal scattered coarse bilateral expiratory rhonchi. Expiratory wheezes are noted. Breath sounds are equal bilaterally. No crackles. Breath sounds are diminished throughout. Saturations are 94 % on 2 L. Abdomen soft bowel sounds are heard. No masses or tenderness. Extremities are intact. No cyanosis clubbing or edema. Skin is without rash or lesion. Neurologic examination is brief but nonfocal. - Labs CBC & Chem 7: 07/15/22 08:20 07/15/22 08:20 Labs: Abnormal Lab Results - Last 24 Hours (Table) 07/14/22 07/14/22 07/15/22 Range/Units 16:34 20:03 06:12 MCV (80.0-100.0) fL Plt Count (150-450) k/uL Neutrophils # (1.3-7.7) k/uL Lymphocytes # (1.0-4.8) k/uL PT (9.0-12.0) sec INR (<1.2) Chloride (98-107) mmol/L Carbon Dioxide (22-30) mmol/L BUN (7-17) mg/dL Creatinine (0.52-1.04) mg/dL Glucose (74-99) mg/dL POC Glucose (mg/dL) 209 H 299 H 204 H (70-110) mg/dL 07/15/22 07/15/22 07/15/22 Range/Units 08:20 08:20 08:20 MCV 101.2 H (80.0-100.0) fL Plt Count 127 L (150-450) k/uL Neutrophils # 8.7 H (1.3-7.7) k/uL Lymphocytes # 0.3 L (1.0-4.8) k/uL PT 27.1 H (9.0-12.0) sec INR 2.8 H (<1.2) Chloride 97 L (98-107) mmol/L Carbon Dioxide 35 H (22-30) mmol/L BUN 52 H (7-17) mg/dL Creatinine 1.14 H (0.52-1.04) mg/dL Glucose 235 H (74-99) mg/dL POC Glucose (mg/dL) (70-110) mg/dL 04/16/23 Range/Units 11:45 MCV (80.0-100.0) fL Plt Count (150-450) k/uL Neutrophils # (1.3-7.7) k/uL Lymphocytes # (1.0-4.8) k/uL PT (9.0-12.0) sec INR (<1.2) Chloride (98-107) mmol/L Carbon Dioxide (22-30) mmol/L BUN (7-17) mg/dL Creatinine (0.52-1.04) mg/dL Glucose (74-99) mg/dL POC Glucose (mg/dL) 230 H (70-110) mg/dL Microbiology - Last 24 Hours (Table) 07/08/22 17:15 Blood Culture - Final Blood No Growth after 144 hours Assessment and Plan Assessment: Acute exacerbation of asthma, as well as mild exacerbation of diastolic CHF, leading to hypoxemic respiratory failure. History of paroxysmal atrial fibrillation. History of subdural hematoma, January 2022. History of rectal bleeding. Type 2 diabetes mellitus. Essential hypertension. Morbid obesity. Nonalcoholic steatohepatitis. Gastroesophageal reflux disease, without esophagitis, status post Ambrose fundoplication. History of hypothyroidism. Mild obstructive sleep apnea syndrome. Previous history of tobacco use. Right ovarian mass. Plan: Plan dated 07/10/2022. The patient remains on appropriate medications. His oxygen. We did not give her a long-acting beta agonist, she has an intolerance to that. She is receiving albuterol sulfate, ipratropium bromide, and budesonide solution. She is also receiving corticosteroids. We will continue to follow make recommendations along the way. Prognosis is guarded. Plan dated 07/11/2022. The patient is not quite ready for discharge. The patient COPD/asthma still quite active. She continues on appropriate medications including bronchodilators, and steroids. Her cardiac procedure which was scheduled for Saturday, should be canceled. She will not get out of the hospital before Saturday. I did mention that to her current inpatient air crew officer. We will continue to follow her and make recommendations along the way. Prognosis is guarded. Plan dated 07/12/2022. The patient's asthma exacerbation, has been hampered by her recent development of atrial fibrillation last night. She still quite bronchospastic. She is receiving appropriate medications. Labs, x-rays, and medications are all reviewed. Prognosis is certainly guarded. She obviously is not able to have the cardiac procedure scheduled for tomorrow. We will continue to follow the patient and make recommendations along the way. Plan dated 07/13/2022. The patient's asthma is still active. The patient still feels lots of wheezes and tightness in her chest. She's got a very bronchospastic cough. Is currently being managed with all the appropriate medications. It will just take time for her asthma to break. He cannot tolerate long-acting beta agonist. Labs, x-rays, medications are reviewed. We will continue to follow the patient and make recommendations along the way. Prognosis is certainly guarded in this patient. Plan dated 07/14/2022. The patient is a bit better today, but not a lot better. She still feels quite tight in her chest, with significant bronchospasm and wheezing. Labs, x-rays, and medications are reviewed. Saturation is 93-94%. Labs, x-rays, and medications are all reviewed. We will continue to follow the patient and make recommendations along the way. I did mention to her, if she does not improve, come next week, she may benefit from bronchoscopy, and BAL. Prognosis is guarded. Plan dated 07/15/2022. The patient appears to be doing a bit better. She still on 2 L. She's less bronchospastic. Labs, x-rays, and medications are reviewed. We will continue to follow the patient and make recommendations along the way. She typically sees my partner, Dr. Gupta and our office. He will be taking over the service tomorrow and can decide any further treatments or recommendations. Time with Patient: Less than 30
--- NOTE | 2022-07-15 13:09 | P.PN ---
Subjective Progress Note Date: 07/15/22 History of present illness: This is a 77 year old female patient with known history of intracranial bleed while on anticoagulation for paroxysmal atrial fibrillation, history of CVA as well with good recovery, previous MM a embolization, type 2 diabetes, hypertension, hyperlipidemia, noncritical coronary artery disease on catheterization November. She is a patient of Dr. ELVIRA Patton and follows with Dr. Lindsey and scheduled for watchman procedure on July 13. Patient presented with increasing shortness of breath appears to be COPD exacerbation with bronchial asthma. Patient complains of shortness of breath with exertion continues to wheezing which is worsened from yesterday. She has followed by pulmonary medicine as well. INR today is 2.2 and we will ask for Coumadin to be held tonight. Repeat blood work reveals WBC 16.5, hemoglobin 12.8, BUN 30 creatinine 1.14. 07/11 Patient states that she feels her breathing is a little bit better from yesterday but still having some wheezing. She is continued on IV steroids, inhaled steroids and nebulizer treatments as well as antibiotics. Patient has been resumed on her home cardiac medications. INR today is 2.6. She did not receive Coumadin last evening. Pharmacy is now dosing. 07/12 Patient is seen and reevaluated and continues to have wheezing. Patient went into A. fib with RVR in the evening and Dr. Connor was contacted and ordered 1 dose of metoprolol tartrate oral at 50 mg. Patient then converted early this morning and is in a sinus rhythm. Blood pressure 150/68. INR today is 2.7. Potassium 4.5, BUN 42 and creatinine 1.19. 07/13 Patient continues to have wheezing and shortness of breath despite current treatment managed by pulmonary medicine. Her INR today is 2.8. Advise no Coumadin for tonight and recheck INR tomorrow. BUN 44 creatinine 1.1 and potassium 4.6. 07/14 She reports that her breathing is not good, feels the same as yesterday. She is on 2L NC O2. Breathing does improve some with breathing treatments. Denies any chest pain. Mora some palpitations overnight. NSR. INR 2.8, creat 1.1. 07/15 She is out of bed in chair, breathing is unchanged. Denies chest pain. Creatinine 1.14, K+ 5.1, INR 2.8. BP has been 150-160's. Physical examination: Gen: This is a 77-year-old female. She appears to be fairly comfortable at rest. VS: reviewed HEENT: Head is atraumatic, normocephalic. Pupils equal, round. Sclerae is anicteric. NECK: Supple. No JVD. LUNGS: Bilateral expiratory and inspiratory wheeze, + rhonchi. No intercostal retractions. HEART: Regular rate and rhythm. Short systolic murmur at the left sternal border. ABDOMEN: Soft No tenderness. EXTREMITIES: +1 pitting pedal edema. No calf tenderness. NEUROLOGICAL: Patient is awake, alert and oriented x3. Assessment: COPD exacerbation/tracheobronchitis Bronchial asthma Acute diastolic heart failure Nonobstructive coronary artery disease Left atrial thrombus with plan for watchman procedure-to be rescheduled Paroxysmal atrial fibrillation History of intracranial bleed History of CVA Hypertension Hyperlipidemia Diabetes mellitus type 2 Plan: AM labs reviewed. Blood pressure elevated, will start losartan 25mg po daily and assess response. Shortness of breath is likely more related to lungs. Continue current cardiac medications. Continue Coumadin per pharmacy dosing. Continue diuresis with Lasix 40 mg IV every 12 hours and monitor I&O, daily weights, electrolytes and renal function. We will follow. Nurse practitioner note has been reviewed, I agree with documented findings and plan of care. Patient was seen and examined. Objective - Vital Signs Vital signs: Vital Signs Temp 98.2 F 07/15/22 07:33 Pulse 85 07/15/22 09:02 Resp 22 07/15/22 07:33 BP 157/78 07/15/22 07:33 Pulse Ox 95 07/15/22 07:33 FiO2 29 07/09/22 08:00 Intake & Output 07/14/22 07/15/22 07/15/22 18:59 06:59 18:59 Intake Total 356 Output Total 100 950 Balance 256 -950 Weight 103.7 kg Intake: Oral 356 Output: Urine 100 950 Other: Voiding Method External Catheter External Catheter External Catheter # Bowel Movements 1 - Labs CBC & Chem 7: 07/15/22 08:20 07/15/22 08:20 Labs: Abnormal Lab Results - Last 24 Hours (Table) 07/14/22 07/14/22 07/14/22 Range/Units 08:54 11:33 16:34 PT 26.9 H (9.0-12.0) sec INR 2.8 H (<1.2) POC Glucose (mg/dL) 252 H 209 H (70-110) mg/dL 07/14/22 07/15/22 Range/Units 20:03 06:12 PT (9.0-12.0) sec INR (<1.2) POC Glucose (mg/dL) 299 H 204 H (70-110) mg/dL Microbiology - Last 24 Hours (Table) 07/08/22 17:15 Blood Culture - Final Blood No Growth after 144 hours
[2022-07-15] MEDS: LOSARTAN 25 MG TAB PO SCH (13:43)
[2022-07-15 16:31] LABS: Glucose,Whole Blood 291 mg/dL (70-110)
[2022-07-15] MEDS ORDERED: WARFARIN 0.5 MG TAB PO ONE (18:00)
[2022-07-15 20:10] LABS: Glucose,Whole Blood 290 mg/dL (70-110)
[2022-07-15] MEDS: CITALOPRAM HYDROBROMIDE 20 MG TAB PO SCH (21:01)
--- NOTE | 2022-07-16 01:37 | P.PN ---
Subjective Progress Note Date: 07/15/22 Patient is a 77-year-old female with a past medical history of COPD presents to ER with complaints of worsening shortness of breath for the past 7 days and weight gain about 3 pounds. Initial laboratory test showed WBC 3.9 hemoglobin 12.0 and platelets 145 BUN 23 and creatinine 0.86 AST 65 ALT 34 alk phos 186 and proBNP 1700 and procalcitonin level was 0.13. Albumin 2.5. Urinalysis negative for infection. COVID-19, influenza A B and RSV PCR not detected. 07/09/2022 Patient is currently lying in the bed. Patient is on Airvo 35 L at 30% FiO2. Patient has been afebrile overnight. Was having cough with brown sputum production. No complaints of chest pain.No nausea vomiting abdominal pain or di arrhea. Chest x-ray showed improving volume overload or pulmonary edema. Laboratory data showed WBC 3.3 hemoglobin 12.2 and platelets 136 INR 1.7 Sodium 137 potassium 4.1 chloride 103 bicarb is 30 BUN 25 and creatinine 0.98 and blood sugar is 197. Calcium 7.9. 07/10/2022 Patient is seen and evaluated in follow-up today with pulmonary and cardiology following. Patient continues to have shortness of breath and maintained on oxygen with pulmonary following and patient is receiving IV ceftriaxone and has finished a Zithromax. Patient is on Coumadin with pharmacy to dose and also being maintained on IV Lasix with dose being adjusted to 40 mg twice daily and will continue. Patient does continue on IV steroids and would recommend monitoring Accu-Cheks before meals and at bedtime and use sliding scale as needed. Patient does not normally wear oxygen in the outpatient setting and recommended wean FiO2 as tolerated and will evaluate for possible home O2 requirements. Patient is currently afebrile, denies chest pain or palpitations. Patient is reporting that she is eating with occasional nausea with no vomiting noted. Encouraged increase activity as tolerated. 07/11/2022 Patient is seen and evaluated in follow-up today currently maintained on IV Lasix and kidney function stable and diuresing well with cardiology and pulmonary following closely. Patient also maintained on IV steroids along with breathing treatments and 3 L of oxygen via nasal cannula. Patient continues to report a junky cough although reports is having some improvements in her shortness of breath. Patient reports not a significant improvement. Patient is afebrile maintained on antibiotics and will continue for now. Patient denies worsening shortness of breath, chest pains, or palpitations. No reports of nausea or vomiting and patient is tolerating diet. Encouraged increased activity as tolerated. Recommend follow-up labs to monitor electrolytes and kidney functions closely. 07/12/2022 Patient is seen and evaluated in follow-up today and is maintained on telemetry monitoring with pulmonary and cardiology following. Patient reports there was an episode of atrial for ablation with RVR and cardiology was notified and given an extra dose of metoprolol and is currently sinus rhythm. Patient continues to report shortness of breath with wheezing and crackles noted. Patient is continued on IV steroids along with breathing treatments and pulmonary is following closely. Patient reports she feels quite frustrated with not getting better and wants to go home. Her follow-up LENNY for possible watchman device has been rescheduled. Patient is currently afebrile with no reports of chest pain or palpitations. No reports of nausea vomiting and patient tolerating diet. Encouraged oral intake. 07/13/2022 Patient is seen in follow-up this morning continues to be short of breath with wheezing and bronchospastic. Patient is maintained on inhalers along with breathing treatments, IV steroids, IV ceftriaxone along with IV Lasix with pulmonary and cardiology following closely. Patient is continued on 3 L via nasal cannula and reports does not wear any oxygen at home. Patient appears winded during conversation and takes multiple breaks to catch her breath. Will follow up on chest x-ray in the a.m. Patient is currently afebrile with no reports of chest pain or palpitations. Patient continues with a cough with difficulty expectorating any phlegm. No reports of nausea vomiting and patient is tolerating diet encourage small frequent meals. Patient is weak and with prolonged hospitalization would recommend possible physical therapy evaluation. Patient's blood sugars being monitored with Accu-Cheks and has sliding scale and will continue with current regimen. 07/14/2022 Patient is currently resting in the bed. Awake alert and oriented x3. Currently requiring 2 L oxygen via nasal cannula. Still complains of shortness of breath and tightness. Bilateral wheezing and scattered rhonchi especially in the basilar on physical exam. No complaints of chest pain. No nausea vomiting abdominal pain or diarrhea. Tolerating oral diet. Was also complaining of constipation. Patient is being continued on IV Solu-Medrol 60 mg every 6 hourly and is also on Lasix 40 mg every 12 IV. Pulmonary and cardiology is on board. Most recent Laboratory data reviewed. 07/15/2022 Patient states that she feels better today. Breathing status is improving. Requiring oxygen at 2 L via nasal cannula. No complaints of chest pain. Less bronchospastic today. Otherwise patient is being continued on Solu-Medrol 60 mg every 6 hourly patient is also on Lasix 40 mg every 12. Laboratory showed WBC 9.3 hemoglobin 14.1 platelets 127 INR 2.8 BUN 15 creatinine 1.14 and blood sugar is 235. Patient will be started on insulin regimen. Current medications reviewed. Review of systems: Constitutional: No reports of fatigue, fever, or chills Cardiovascular: No reports of chest pain or palpitations Respiratory: Reports of continued shortness of breath and bronchospastic cough with not much phlegm production GI: No reports of nausea, vomiting, or diarrhea : No reports of dysuria or retention Neurovascular: reports of generalized weakness All medications have been reviewed Active Medications Acetaminophen (Acetaminophen Tab 325 Mg Tab) 650 mg PO Q6H PRN PRN Reason: Mild Pain or Fever > 100.5 Last Admin: 07/11/22 20:53 Dose: 650 mg Albuterol/Ipratropium (Ipratropium-Albuterol 3 Ml Neb) 3 ml INHALATION RT-QID [facility] Last Admin: 07/13/22 11:53 Dose: 3 ml Ascorbic Acid (Ascorbic Acid 500 Mg Tab) 1,000 mg PO DAILY [facility] Last Admin: 07/13/22 07:48 Dose: 1,000 mg Atenolol (Atenolol 50 Mg Tab) 100 mg PO DAILY PRN PRN Reason: HIGH BLOOD PRESSURE Budesonide (Budesonide 1 Mg/2 Ml Nebu) 1 mg INHALATION RT-BID [facility] Last Admin: 07/13/22 08:21 Dose: 1 mg Cholecalciferol (Cholecalciferol 25 Mcg (1000 Iu) Tablet) 25 mcg PO DAILY [facility] Last Admin: 07/13/22 07:48 Dose: 25 mcg Citalopram Hydrobromide (Citalopram Hydrobromide 20 Mg Tab) 20 mg PO HS [facility] Last Admin: 07/12/22 20:08 Dose: 20 mg Dextrose/Water (Dextrose 50% Syringe 50 Ml) 25 ml IVP PER PROTOCOL PRN; Protocol PRN Reason: Hypoglycemia Dextrose/Water (Dextrose 50% Syringe 50 Ml) 50 ml IVP PER PROTOCOL PRN; Protocol PRN Reason: Hypoglycemia Ferrous Sulfate (Ferrous Sulfate 325 Mg Tab) 325 mg PO Q48H [facility] Last Admin: 07/12/22 08:22 Dose: 325 mg Furosemide (Furosemide 10 Mg/Ml 4 Ml Vial) 40 mg IV Q12HR [facility] Last Admin: 07/13/22 07:49 Dose: 40 mg Ceftriaxone Sodium 1 gm/ (Sodium Chloride) 50 mls @ 100 mls/hr IVPB Q24H [facility]; Protocol Last Admin: 07/12/22 20:11 Dose: 100 mls/hr Insulin Aspart (Insulin Aspart (Novolog) 100 Unit/Ml Vial) 0 unit SQ ACHS [facility]; Protocol Last Admin: 07/13/22 11:43 Dose: 2 unit Levothyroxine Sodium (Levothyroxine 50 Mcg Tab) 50 mcg PO DAILY@0630 [facility] Last Admin: 07/13/22 06:13 Dose: 50 mcg Magnesium Oxide (Magnesium Oxide 400 Mg Tab) 400 mg PO DAILY [facility] Last Admin: 07/13/22 07:48 Dose: 400 mg Methylprednisolone Sodium Succinate (Methylprednisolone Sod Succi 125 Mg/2 Ml Vial) 60 mg IV Q6HR [facility] Last Admin: 07/13/22 11:43 Dose: 60 mg Metoprolol Tartrate (Metoprolol Tartrate 50 Mg Tab) 50 mg PO BID [facility] Last Admin: 07/13/22 07:48 Dose: 50 mg Miscellaneous Information (Warfarin Per Pharmacy) 0 each MISCELLANE DIRECTED PRN PRN Reason: PHARMACY DOSING WARFARIN Naloxone HCl (Naloxone 0.4 Mg/Ml 1 Ml Vial) 0.2 mg IVP Q2M PRN PRN Reason: Opioid Reversal Pantoprazole Sodium (Pantoprazole 40 Mg Tablet) 40 mg PO AC-BRKFST [facility] Last Admin: 07/13/22 06:07 Dose: 40 mg Pramipexole Dihydrochloride (Pramipexole 0.125 Mg Tab) 0.125 mg PO BID [facility] Last Admin: 07/13/22 07:48 Dose: 0.125 mg Spironolactone (Spironolactone 25 Mg Tab) 25 mg PO DAILY [facility] Last Admin: 07/13/22 07:48 Dose: 25 mg Warfarin Sodium (Warfarin 0.5 Mg Tab) 0 mg PO ONCE@1800 ONE Stop: 07/13/22 18:01 Last Admin: 07/13/22 10:35 Dose: Not Given PHYSICAL EXAMINATION: Patient is sitting up in the bed comfortably, no acute distress, awake alert and oriented. Morbidly obese. Currently continued on 3 L HEENT: Normocephalic. Neck is supple. Pupils reactive. Nostrils clear. Oral cavity is moist. Neck reveals no JVD, carotid bruits, or thyromegaly. CHEST EXAMINATION: Trachea is central. Symmetrical expansion. Bilateral diffuse wheezing and rhonchi. Bibasilar diminished sounds. Nonlabored breathing. CARDIAC: S1, S2 are muffled, irregular ABDOMEN: Soft. Bowel sounds present. Nontender. No organomegaly. No abdominal bruits. Extremities: 3+ bilateral pedal edema. No clubbing or cyanosis Neurologically awake, alert, oriented. Able to move all extremities. No gross focal deficits noted Skin: No rash or skin lesions. Psychiatric: Cooperative. Non-suicidal, Musculoskeletal: No joint swelling or deformity. Normal range of motion. Assessment: Worsening shortness of breath which is multifactorial. Moderate persistent asthma with exacerbation Acute CHF with diastolic dysfunction Acute tracheobronchitis and possible pneumonia Obstructive sleep apnea not on CPAP at home Paroxysmal atrial fibrillation on anticoagulation with Coumadin. Subtherapeutic. Status post episode of atrial fibrillation with RVR on 07/12/2022 Left atrial thrombus and currently being anticoagulated with warfarin. Patient is supposed to get LENNY, Watchman procedure as an outpatient at [facility] although being rescheduled. Hypertension Morbid obesity with BMI of 40.7 Diabetes type 2 History of nonalcoholic hepatic steatosis History of GERD status post Ambrose fundoplication Hypothyroidism Right ovarian mass currently under investigation as an outpatient Prior history of smoking quit 36 years ago History of subdural hematoma in January 2022 Coumadin dosing GI prophylaxis No code Plan: Patient is currently on 2 L nasal cannula oxygen. Weaning FiO2 as tolerated with pulmonary and cardiology following Continued on IV diuresis with Lasix 40 mg every 12 hours follow-up with repeat labs in a.m., replace electrolytes per protocol Continue with methylprednisolone 60 mg every 6 hourly and DuoNebs. Antibiotics in the form of ceftriaxone and has completed azithromycin. Proca lcitonin level is 0.13.Follow-up repeat procalcitonin level. Patient continues with shortness of breath and cough with some phlegm although not able to expectorate. Recommend continue monitoring Accu-Cheks before meals and at bedtime and use sliding scale as patient is on steroids and having some elevated blood sugars with a known history of diabetes Coumadin monitoring with pharmacy to dose, INR Patient was supposed to follow-up with cardiology as an outpatient for LENNY with possible Watchman procedure at [facility] on 07/13 although needs to be rescheduled and has been canceled Encouraged increased activity as tolerated and encouraged oral intake. Patient has had prolonged hospitalization with weakness and would recommend possible physical therapy evaluation Prognosis Is guarded CODE STATUS is DNR/DNI. Objective - Vital Signs Vital signs: Vital Signs Temp 98.2 F 07/15/22 07:33 Pulse 79 07/15/22 13:08 Resp 20 07/15/22 12:15 BP 155/89 07/15/22 12:15 Pulse Ox 94 L 07/15/22 12:15 FiO2 29 07/09/22 08:00 Intake & Output 07/14/22 07/15/22 07/15/22 18:59 06:59 18:59 Intake Total 356 360 Output Total 100 950 100 Balance 256 -950 260 Weight 103.7 kg Intake: Oral 356 360 Output: Urine 100 950 100 Other: Voiding Method External Catheter External Catheter External Catheter # Bowel Movements 1 - Labs CBC & Chem 7: 07/15/22 08:20 07/15/22 08:20 Labs: Abnormal Lab Results - Last 24 Hours (Table) 07/14/22 07/14/22 07/15/22 Range/Units 16:34 20:03 06:12 MCV (80.0-100.0) fL Plt Count (150-450) k/uL Neutrophils # (1.3-7.7) k/uL Lymphocytes # (1.0-4.8) k/uL PT (9.0-12.0) sec INR (<1.2) Chloride (98-107) mmol/L Carbon Dioxide (22-30) mmol/L BUN (7-17) mg/dL Creatinine (0.52-1.04) mg/dL Glucose (74-99) mg/dL POC Glucose (mg/dL) 209 H 299 H 204 H (70-110) mg/dL 07/15/22 07/15/22 07/15/22 Range/Units 08:20 08:20 08:20 MCV 101.2 H (80.0-100.0) fL Plt Count 127 L (150-450) k/uL Neutrophils # 8.7 H (1.3-7.7) k/uL Lymphocytes # 0.3 L (1.0-4.8) k/uL PT 27.1 H (9.0-12.0) sec INR 2.8 H (<1.2) Chloride 97 L (98-107) mmol/L Carbon Dioxide 35 H (22-30) mmol/L BUN 52 H (7-17) mg/dL Creatinine 1.14 H (0.52-1.04) mg/dL Glucose 235 H (74-99) mg/dL POC Glucose (mg/dL) (70-110) mg/dL 07/15/22 Range/Units 11:45 MCV (80.0-100.0) fL Plt Count (150-450) k/uL Neutrophils # (1.3-7.7) k/uL Lymphocytes # (1.0-4.8) k/uL PT (9.0-12.0) sec INR (<1.2) Chloride (98-107) mmol/L Carbon Dioxide (22-30) mmol/L BUN (7-17) mg/dL Creatinine (0.52-1.04) mg/dL Glucose (74-99) mg/dL POC Glucose (mg/dL) 230 H (70-110) mg/dL Microbiology - Last 24 Hours (Table) 07/08/22 17:15 Blood Culture - Final Blood No Growth after 144 hours
[2022-07-16 06:02] LABS: Glucose,Whole Blood 179 mg/dL (70-110)
[2022-07-16] MEDS: LEVOTHYROXINE 50 MCG TAB PO SCH (06:37)
[2022-07-16] MEDS: PANTOPRAZOLE 40 MG TABLET PO SCH (06:37)
[2022-07-16] MEDS: INSULIN ASPART (NovoLOG) 100 UNIT/ML VIAL SQ SCH ×4 (06:38→20:15)
[2022-07-16] MEDS: methylPREDNISolone SOD SUCCI 125 MG/2 ML VIAL IV SCH ×3 (06:38→17:00)
[2022-07-16] MEDS: INSULIN DETEMIR (LEVEMIR) 100 UNIT/ML SYR SQ SCH (06:38)
[2022-07-16] MEDS: BUDESONIDE 1 MG/2 ML NEBU INHALATION SCH ×2 (08:15→20:36)
[2022-07-16] MEDS: IPRATROPIUM-ALBUTEROL 3 ML NEB INHALATION SCH ×4 (08:15→20:36)
[2022-07-16 08:43] LABS: Basophils % (A) 0 %; Eosinophils # (A) 0.1 k/uL (0-0.7); Eosinophils % (A) 1 %; HGB 13.8 gm/dL (11.4-16.0); Lymphocytes # (A) 0.3 k/uL (1.0-4.8); Lymphocytes % (A) 2 %; MCHC 32.2 g/dL (31.0-37.0); MCV 102.6 fL (80.0-100.0); Macrocytosis Slight; Mean Platelet Volume 7.8; Monocytes # (A) 0.4 k/uL (0-1.0); Monocytes % (A) 4 %; Neutrophils # (A) 10.4 k/uL (1.3-7.7); Neutrophils % (A) 93 %; Platelet Count 112 k/uL (150-450); RBC 4.19 m/uL (3.80-5.40); RDW 13.8 % (11.5-15.5); WBC 11.1 k/uL (3.8-10.6)
[2022-07-16] MEDS: FERROUS SULFATE 325 MG TAB PO SCH (08:52)
[2022-07-16] MEDS: ASCORBIC ACID 500 MG TAB PO SCH (08:52)
[2022-07-16] MEDS: CHOLECALCIFEROL 25 MCG (1000 IU) TABLET PO SCH (08:52)
[2022-07-16] MEDS: PRAMIPEXOLE 0.125 MG TAB PO SCH ×2 (08:52→20:16)
[2022-07-16] MEDS: SPIRONOLACTONE 25 MG TAB PO SCH (08:52)
[2022-07-16] MEDS: MAGNESIUM OXIDE 400 MG TAB PO SCH (08:52)
[2022-07-16] MEDS: LOSARTAN 25 MG TAB PO SCH (08:52)
[2022-07-16] MEDS: METOPROLOL TARTRATE 50 MG TAB PO SCH ×2 (08:52→20:14)
[2022-07-16 09:01] LABS: Calcium 8.5 mg/dL (8.4-10.2); Potassium 5.1 mmol/L (3.5-5.1)
[2022-07-16 09:19] LABS: INR 3.1 (<1.2); Prothrombin Time 30.6 sec (9.0-12.0)
[2022-07-16] MEDS: FUROSEMIDE 10 MG/ML 4 ML VIAL IV SCH ×2 (10:15→20:15)
--- NOTE | 2022-07-16 11:22 | P.PN ---
Subjective Progress Note Date: 07/16/22 Principal diagnosis: Shortness of breath. I'm seeing this patient in new consultation today 07/09/2022 for progressive shortness of breath starting yesterday. This is a 77-year-old white female with a significant medical history for congestive heart failure, moderate persistent asthma, atrial fibrillation, left atrial appendage thrombus, diabetes mellitus type 2, hypertension, hypothyroidism, nonalcoholic cirrhosis of the liver, brain bleed, mild obstructive sleep apnea, remote history of smoking 36 years ago. Patient presented yesterday for difficulty breathing that started on Saturday. Patient reports shortness breath especially when exerting herself or lying flat, wheezing, fluid retention in her lower extremities, weight gain of about 3 pounds, and heart palpitations. She also reports some upper respiratory tract infection symptoms such as runny nose, cough with brown sputum production, and chills. She denies any subjective fevers or chest pain. Patient does follow with Dr. Gupta in the office for management of her moderate persistent asthma and mild obstructive sleep apnea. Patient patient states that she takes albuterol and Symbicort on an outpatient basis. She also follows with a career technology teacher from [place], and has a planned LENNY and watchman procedure this Saturday. Patient is currently resting in bed, on AIRVO 35 L and 30% high flow cannula, in no acute distress. Chest x-ray on arrival showed mild cardiomegaly with mild diffuse interstitial opacities. No obvious focal consolidation. NT proBNP was mildly elevated at 1700. CBC on arrival shows a non-elevated WBC count of 3.9, hemoglobin 12, hematocrit 37, platelets 145,000. Patient's INR on arrival was sub-therapeutic at 1.6. Patient does take Coumadin on outpatient basis. Patient has reported some minimal rectal bleeding on and Saturday of this previous week. No bleeding since reported. BMP shows a sodium 137, potassium 4.2, chloride 104, serum CO2 31, BUN 23, creatinine 0.86, glucose 113. Lactic acid 1.5. LFTs mildly elevated. Negative for influenza, RSV, COVID-19. Pro-calcitonin levels pending. Patient is currently receiving bronchodilators and IV Solu-Medrol. She is also receiving empiric antibiotics for community associated pneumonia. Remains afebrile. Vital signs are stable. Progress note dated 07/10/2022. 7-year-old patient seen for shortness of breath, in room 374, secondary to asthma exacerbation, and diastolic CHF. Currently, the patient's on 3 L of oxygen. She's not receiving any IV fluids. Clinically, she feels better. White count 16.5, hemoglobin 12.8, hematocrit 40, and platelet count is normal. PTT is 22 with an INR of 2.2. Sodium, potassium, chloride, CO2, and anion gap, are all normal. BUN is 30 with a creatinine of 1.14. Chest x-ray shows a pattern of improving volume status. Progress note dated 07/11/2022. 77-year-old female seen today in room 374. The patient was admitted with a diagnosis of asthma exacerbation, and diastolic CHF. The patient was to have a cardiac procedure done on Saturday, and an outside hospital. The patient should not have that done at this time. She remains on 2 L of oxygen. No IV fluids. Her daughter is in the room with her. The patient's only feeling marginally better. I did mention to the career technology teacher here, at her procedure should be canceled. White count 10.5, hemoglobin 12.5, hematocrit 39.5, with a normal platelet count. PT 25.6 with an INR 2.6. Sodium 136, potassium 4.2, chlorides 100, CO2 31, BUN 38, creatinine 1.10. Progress note dated 07/12/2022. 77-year-old patient seen in room 374. The patient states that she had a bad night last night, apparently developing atrial fibrillation. She is also quite bronchospastic and wheezy. Currently, she is on 2 L of oxygen. She's not receiving any IV fluids. Saturations are 97%. She was receiving a breathing treatment today, when we saw her in the room. No new labs today to report. Progress note dated 07/13/2022. 77-year-old female seen in room 374. The patient complains of being short of breath, and quite bronchospastic. She feels like she can't cough up phlegm. Currently, she remains on 2 L of oxygen. She's not receiving any IV fluids. She remains on corticosteroids, inhaled corticosteroids, as well as albuterol sulfate and ipratropium bromide. She apparently cannot tolerate long-acting beta agonist, which is why she's not receiving them. PTT 26.9, INR 2.8. Sodium 137, potassium 4.6, chlorides 100, CO2 36, BUN 44, and creatinine 1.10. Glucose 229. Calcium is 8.2. Progress note dated 07/14/2022. 77-year-old female seen again in room 374. The patient complains of tightness i n her chest, shortness of breath, and bronchospasm. She's having a hard time coughing up any phlegm. She's currently on 2 L. She certainly no worse. She's not receiving any IV fluids. No new labs today other than a PT of 26.9 and an INR of 2.8. Glucose 252. Progress note dated 07/15/2022. 77-year-old female seen today in room 374. Today she sitting up in the chair. Currently, she is on 2 L of oxygen. She's not receiving IV fluids. She does feel a bit better today. She still has shortness of breath, chest tightness, and cough, with bronchospasm. Labs today include a white count 9.3, hemoglobin 14.2, hematocrit 43.8, and a platelet count of 127,000. PTT is 27.1, with an INR of 2.8. Sodium 137, potassium 5.1, chlorides 97, CO2 35, BUN 52, and creatinine 1.14. Progress note dated 07/16/2022. 77-year-old female seen along with her daughter in room 374. The patient remains on 2 L of oxygen. She's feeling better and breathing better. She certainly much less bronchospastic. She denies any chest pain or chest discomfort. Laboratory data includes a white count 11.1, hemoglobin 13.8, hematocrit 43, and a platelet count of 112,000. PTT 30.6, INR 3.1. Sodium 136, potassium 5.1, chlorides 98, CO2 33, BUN 56, creatinine 1.12. Glucose 241. Calcium 8.5. Objective - Vital Signs Vital signs: Vital Signs Temp 97.9 F 07/16/22 08:56 Pulse 81 07/16/22 08:56 Resp 19 07/16/22 08:56 BP 135/63 07/16/22 08:56 Pulse Ox 95 07/16/22 08:56 FiO2 29 07/09/22 08:00 Intake & Output 07/15/22 07/16/22 07/16/22 18:59 06:59 18:59 Intake Total 838 240 Output Total 450 150 Balance 388 -150 240 Weight 103.2 kg Intake: Oral 838 240 Output: Urine 450 150 Other: Voiding Method External Catheter External Catheter - Exam No acute distress, oriented 3. Currently on 2 L. Minimal conversational dyspnea. HEENT examination is grossly unremarkable. Neck supple. Full range of motion. No adenopathy thyromegaly or neck vein distention. Cardiovascular examination reveals regular rhythm rate. S1-S2 normal. No S3 or S4. No discernible murmur noted. Heart rate 86 bpm. Heart sounds are distant. Lungs reveal scattered coarse bilateral expiratory rhonchi. Expiratory wheezes are noted. Breath sounds are equal bilaterally. No crackles. Breath sounds are diminished throughout. Saturations are 95 % on 2 L. Abdomen soft bowel sounds are heard. No masses or tenderness. Extremities are intact. No cyanosis clubbing or edema. Skin is without rash or lesion. Neurologic examination is brief but nonfocal. - Labs CBC & Chem 7: 07/16/22 08:22 07/16/22 08:22 Labs: Abnormal Lab Results - Last 24 Hours (Table) 07/15/22 07/15/22 07/15/22 Range/Units 11:45 16:27 20:08 WBC (3.8-10.6) k/uL MCV (80.0-100.0) fL Plt Count (150-450) k/uL Neutrophils # (1.3-7.7) k/uL Lymphocytes # (1.0-4.8) k/uL PT (9.0-12.0) sec INR (<1.2) Sodium (137-145) mmol/L Carbon Dioxide (22-30) mmol/L BUN (7-17) mg/dL Creatinine (0.52-1.04) mg/dL Glucose (74-99) mg/dL POC Glucose (mg/dL) 230 H 291 H 290 H (70-110) mg/dL 07/16/22 07/16/22 07/16/22 Range/Units 06:01 08:22 08:22 WBC 11.1 H (3.8-10.6) k/uL MCV 102.6 H (80.0-100.0) fL Plt Count 112 L (150-450) k/uL Neutrophils # 10.4 H (1.3-7.7) k/uL Lymphocytes # 0.3 L (1.0-4.8) k/uL PT 30.6 H (9.0-12.0) sec INR 3.1 H (<1.2) Sodium (137-145) mmol/L Carbon Dioxide (22-30) mmol/L BUN (7-17) mg/dL Creatinine (0.52-1.04) mg/dL Glucose (74-99) mg/dL POC Glucose (mg/dL) 179 H (70-110) mg/dL 07/16/22 Range/Units 08:22 WBC (3.8-10.6) k/uL MCV (80.0-100.0) fL Plt Count (150-450) k/uL Neutrophils # (1.3-7.7) k/uL Lymphocytes # (1.0-4.8) k/uL PT (9.0-12.0) sec INR (<1.2) Sodium 136 L (137-145) mmol/L Carbon Dioxide 33 H (22-30) mmol/L BUN 56 H (7-17) mg/dL Creatinine 1.12 H (0.52-1.04) mg/dL Glucose 241 H (74-99) mg/dL POC Glucose (mg/dL) (70-110) mg/dL Assessment and Plan Assessment: Acute exacerbation of asthma, as well as mild exacerbation of diastolic CHF, leading to hypoxemic respiratory failure. History of paroxysmal atrial fibrillation. History of subdural hematoma, January 2022. History of rectal bleeding. Type 2 diabetes mellitus. Essential hypertension. Morbid obesity. Nonalcoholic steatohepatitis. Gastroesophageal reflux disease, without esophagitis, status post Ambrose fundoplication. History of hypothyroidism. Mild obstructive sleep apnea syndrome. Previous history of tobacco use. Right ovarian mass. Plan: Plan dated 07/10/2022. The patient remains on appropriate medications. His oxygen. We did not give her a long-acting beta agonist, she has an intolerance to that. She is receiv ing albuterol sulfate, ipratropium bromide, and budesonide solution. She is also receiving corticosteroids. We will continue to follow make recommendations along the way. Prognosis is guarded. Plan dated 07/11/2022. The patient is not quite ready for discharge. The patient COPD/asthma still qu ite active. She continues on appropriate medications including bronchodilators, and steroids. Her cardiac procedure which was scheduled for Saturday, should be canceled. She will not get out of the hospital before Saturday. I did mention that to her current inpatient career technology teacher. We will continue to follow her and make recommendations along the way. Prognosis is guarded. Plan dated 07/12/2022. The patient's asthma exacerbation, has been hampered by her recent development of atrial fibrillation last night. She still quite bronchospastic. She is receiving appropriate medications. Labs, x-rays, and medications are all reviewed. Prognosis is certainly guarded. She obviously is not able to have the cardiac procedure scheduled for tomorrow. We will continue to follow the patient and make recommendations along the way. Plan dated 07/13/2022. The patient's asthma is still active. The patient still feels lots of wheezes and tightness in her chest. She's got a very bronchospastic cough. Is currently being managed with all the appropriate medications. It will just take time for her asthma to break. He cannot tolerate long-acting beta agonist. Labs, x-rays, medications are reviewed. We will continue to follow the patient and make recommendations along the way. Prognosis is certainly guarded in this patient. Plan dated 07/14/2022. The patient is a bit better today, but not a lot better. She still feels quite tight in her chest, with significant bronchospasm and wheezing. Labs, x-rays, and medications are reviewed. Saturation is 93-94%. Labs, x-rays, and medica tions are all reviewed. We will continue to follow the patient and make recommendations along the way. I did mention to her, if she does not improve, come next week, she may benefit from bronchoscopy, and BAL. Prognosis is guarded. Plan dated 07/15/2022. The patient appears to be doing a bit better. She still on 2 L. She's less bronchospastic. Labs, x-rays, and medications are reviewed. We will continue to follow the patient and make recommendations along the way. She typically sees my partner, Dr. Gupta and our office. He will be taking over the service tomorrow and can decide any further treatments or recommendations. Plan dated 07/16/2022. In my opinion, the patient appears to be doing better. Her lung sounds are improved. Air entry and exit, all improved. The wheezing that I was hearing earlier, is now improved. It is still present though. I spent time talking to her and her daughter. I did mention to her that maybe my partner, Dr. Gupta, we'll consider bronchoscopy and BAL on this patient. Labs, x-rays, and medications are reviewed. We will continue to follow and make recommendations where appropriate. Time with Patient: Less than 30
--- NOTE | 2022-07-16 11:40 | P.PN ---
Subjective Progress Note Date: 07/16/22 HISTORY OF PRESENT ILLNESS: This is a 77 year old female patient with known history of intracranial bleed while on anticoagulation for paroxysmal atrial fibrillation, history of CVA as well with good recovery, previous MM a embolization, type 2 diabetes, hypertension, hyperlipidemia, noncritical coronary artery disease on catheterization November. She is a patient of Dr. ELVIRA Patton and follows with Dr. Lindsey and scheduled for watchman procedure on July 13. Patient presented with increasing shortness of breath appears to be COPD exacerbation with bronchial asthma. Patient complains of shortness of breath with exertion continues to wheezing which is worsened from yesterday. She has followed by pulmonary medicine as well. INR today is 2.2 and we will ask for Coumadin to be held tonight. Repeat blood work reveals WBC 16.5, hemoglobin 12.8, BUN 30 creatinine 1.14. 07/11 Patient states that she feels her breathing is a little bit better from yesterday but still having some wheezing. She is continued on IV steroids, inhaled steroids and nebulizer treatments as well as antibiotics. Patient has been resumed on her home cardiac medications. INR today is 2.6. She did not receive Coumadin last evening. Pharmacy is now dosing. 07/12 Patient is seen and reevaluated and continues to have wheezing. Patient went into A. fib with RVR in the evening and Dr. Connor was contacted and ordered 1 dose of metoprolol tartrate oral at 50 mg. Patient then converted early this morning and is in a sinus rhythm. Blood pressure 150/68. INR today is 2.7. Potassium 4.5, BUN 42 and creatinine 1.19. 07/13 Patient continues to have wheezing and shortness of breath despite current treatment managed by pulmonary medicine. Her INR today is 2.8. Advise no Coumadin for tonight and recheck INR tomorrow. BUN 44 creatinine 1.1 and potassium 4.6. 07/14 She reports that her breathing is not good, feels the same as yesterday. She is on 2L NC O2. Breathing does improve some with breathing treatments. Denies any chest pain. [place] some palpitations overnight. NSR. INR 2.8, creat 1.1. 07/15 She is out of bed in chair, breathing is unchanged. Denies chest pain. Cr eatinine 1.14, K+ 5.1, INR 2.8. BP has been 150-160's. 07/16/2022 Patient examined this morning at the bedside. Patient denies chest pain or pressure. She reports continued shortness of breath. She continues to have lower extremity edema. She remains on IV Lasix 40 mg every 12 hours. blood pressure stable at 135/63. Creatinine 1.12 PHYSICAL EXAM: VITAL SIGNS: Reviewed. GENERAL: Well-developed in no acute distress. NECK: Supple. No JVD or thyromegaly LUNGS: Respirations even and unlabored. Lungs with wheezing noted throughout. HEART: Regular rate and rhythm. S1 and S2 heard. + systolic murmur. EXTREMITIES: Normal range of motion. No clubbing or cyanosis. Peripheral pulses intact. 1-2+ bilateral lower extremity edema ASSESSMENT: Acute COPD exacerbation Tracheobronchitis Bronchial asthma Acute on chronic congestive heart failure, type unknown, last echo 3 years ago, repeat pending Nonobstructive coronary artery disease Left atrial thrombus with plan for watchman procedure-to be rescheduled Paroxysmal atrial fibrillation History of intracranial bleed History of CVA Hypertension Hyperlipidemia Diabetes mellitus type 2 PLAN: Continue current cardiac medications Continue anticoagulation with warfarin. Continue to monitor INR Continue IV Lasix Daily weights, accurate I&O, and monitor kidney function Obtain 2-D echo to assess cardiac structure and function Pulmonary following Further recommendations pending patient's course Nurse practitioner note has been reviewed by physician. Signing provider agrees with the documented findings, assessment, and plan of care. Objective - Vital Signs Vital signs: Vital Signs Temp 97.9 F 07/16/22 08:56 Pulse 81 07/16/22 08:56 Resp 19 07/16/22 08:56 BP 135/63 07/16/22 08:56 Pulse Ox 95 07/16/22 08:56 FiO2 29 07/09/22 08:00 Intake & Output 07/15/22 07/16/22 07/16/22 18:59 06:59 18:59 Intake Total 838 240 Output Total 450 150 Balance 388 -150 240 Weight 103.2 kg Intake: Oral 838 240 Output: Urine 450 150 Other: Voiding Method External Catheter External Catheter - Labs CBC & Chem 7: 07/16/22 08:22 07/16/22 08:22 Labs: Abnormal Lab Results - Last 24 Hours (Table) 07/15/22 07/15/2207/15/23 Range/Units 11:45 16:27 20:08 WBC (3.8-10.6) k/uL MCV (80.0-100.0) fL Plt Count (150-450) k/uL Neutrophils # (1.3-7.7) k/uL Lymphocytes # (1.0-4.8) k/uL PT (9.0-12.0) sec INR (<1.2) Sodium (137-145) mmol/L Carbon Dioxide (22-30) mmol/L BUN (7-17) mg/dL Creatinine (0.52-1.04) mg/dL Glucose (74-99) mg/dL POC Glucose (mg/dL) 230 H 291 H 290 H (70-110) mg/dL 07/16/22 07/16/22 07/16/22 Range/Units 06:01 08:22 08:22 WBC 11.1 H (3.8-10.6) k/uL MCV 102.6 H (80.0-100.0) fL Plt Count 112 L (150-450) k/uL Neutrophils # 10.4 H (1.3-7.7) k/uL Lymphocytes # 0.3 L (1.0-4.8) k/uL PT 30.6 H (9.0-12.0) sec INR 3.1 H (<1.2) Sodium (137-145) mmol/L Carbon Dioxide (22-30) mmol/L BUN (7-17) mg/dL Creatinine (0.52-1.04) mg/dL Glucose (74-99) mg/dL POC Glucose (mg/dL) 179 H (70-110) mg/dL 07/16/22 Range/Units 08:22 WBC (3.8-10.6) k/uL MCV (80.0-100.0) fL Plt Count (150-450) k/uL Neutrophils # (1.3-7.7) k/uL Lymphocytes # (1.0-4.8) k/uL PT (9.0-12.0) sec INR (<1.2) Sodium 136 L (137-145) mmol/L Carbon Dioxide 33 H (22-30) mmol/L BUN 56 H (7-17) mg/dL Creatinine 1.12 H (0.52-1.04) mg/dL Glucose 241 H (74-99) mg/dL POC Glucose (mg/dL) (70-110) mg/dL
[2022-07-16 11:51] LABS: Glucose,Whole Blood 292 mg/dL (70-110)
[2022-07-16 17:01] LABS: Glucose,Whole Blood 240 mg/dL (70-110)
--- NOTE | 2022-07-16 17:56 | CA ---
Transthoracic Echo Report Name: Thais Gamboa Age: 77 Gender: F : 1945 Exam Date: 07/16/2022 11:13 Exam Location: [facility] Ht (in): 63 Wt (lb): 229 Ordering Physician: Ayse De La Cruz Attending/Referring Phys: Osorio Gupta MD [employer] Jaden Preston RDCS Procedure CPT: Indications: LV function, CHF, SOB Cardiac Hx: MR Technical Quality: Fair Contrast 1: Total Dose (mL): Contrast 2: Total Dose (mL): MEASUREMENTS (Male / Female) Normal Values 2D ECHO LV Diastolic Diameter PLAX 5.0 cm 4.2 - 5.9 / 3.9 - 5.3 cm LV Systolic Diameter PLAX 3.4 cm LV Fractional Shortening PLAX 32.0 % IVS Diastolic Thickness 1.0 cm 0.6 - 1.0 / 0.6 - 0.9 cm IVS Systolic Thickness 1.4 cm LVPW Diastolic Thickness 1.1 cm 0.6 - 1.0 / 0.6 - 0.9 cm LVPW Systolic Thickness 1.4 cm LV Relative Wall Thickness 0.4 LVOT Diameter 1.9 cm LA Systolic Diameter LX 3.8 cm 3.0 - 4.0 / 2.7 - 3.8 cm LV Diastolic Volume MOD BP 88.9 cm??? 67 - 155 / 56 - 104 cm??? LV Systolic Volume MOD BP 39.2 cm??? 22 - 58 / 19 - 49 cm??? LV Ejection Fraction MOD BP 56.0 % >= 55 % LV Stroke Volume MOD BP 49.7 cm??? LV Diastolic Volume MOD 4C 95.6 cm??? LV Systolic Volume MOD 4C 43.0 cm??? LV Ejection Fraction MOD 4C 55.0 % LV Stroke Volume MOD 4C 52.6 cm??? LV Diastolic Length 4C 7.2 cm LV Systolic Length 4C 6.0 cm LV Diastolic Volume MOD 2C 81.9 cm??? LV Systolic Volume MOD 2C 34.3 cm??? LV Ejection Fraction MOD 2C 58.1 % LV Stroke Volume MOD 2C 47.6 cm??? LV Diastolic Length 2C 7.1 cm LV Systolic Length 2C 6.4 cm M-MODE Aortic Root Diameter MM 2.8 cm LA Systolic Diameter MM 4.1 cm LA Ao Ratio MM 1.5 AV Cusp Separation MM 1.7 cm DOPPLER AV Peak Velocity 147.7 cm/s AV Peak Gradient 8.7 mmHg AI Peak Velocity 266.0 cm/s AI Peak Gradient 28.3 mmHg AI Deceleration Robertson 170.0 cm/s??? AI Pressure Half Time 453.7 ms LVOT Peak Velocity 130.2 cm/s LVOT Peak Gradient 6.8 mmHg AV Area Cont Eq pk 2.5 cm??? MV Peak Velocity 114.9 cm/s MV Peak Gradient 5.3 mmHg MV Mean Velocity 82.6 cm/s MV Mean Gradient 2.9 mmHg MV Velocity Time Integral 29.7 cm MV Deceleration Robertson 394.1 cm/s??? MR Peak Velocity 407.3 cm/s MR Peak Gradient 66.4 mmHg Mitral E Point Velocity 77.2 cm/s Mitral A Point Velocity 86.9 cm/s Mitral E to A Ratio 0.9 MV Deceleration Time 195.9 ms MV E' Velocity 5.8 cm/s Mitral E to MV E' Ratio 13.2 TR Peak Velocity 251.8 cm/s TR Peak Gradient 25.4 mmHg Right Ventricular Systolic Press 35.4 mmHg PV Peak Velocity 109.4 cm/s PV Peak Gradient 4.8 mmHg FINDINGS Left Ventricle Left ventricular ejection fraction is estimated at 55-60 %. Grade 1 diastolic dysfunction. Right Ventricle Normal right ventricular size and function. [id number] mm Hg Right Atrium Right atrial dilatation. Left Atrium Mild left atrial dilatation. Mitral Valve Mild thickening/calcification of the anterior mitral valve leaflet. Moderate thickening/calcification of the posterior mitral valve leaflet. Moderate mitral regurgitation. Aortic Valve Trileaflet aortic valve. Diffuse thickening (sclerosis) of the aortic valve cusps without reduced excursion. [id number] aortic regurgitation. Tricuspid Valve [id number] tricuspid regurgitation. Pulmonic Valve Pulmonic valve not well visualized. Pericardium Normal pericardium. No pericardial effusion. Aorta Normal size aortic root and proximal ascending aorta. CONCLUSIONS Normal LV systolic function Thickened mitral valve leaflets with moderate mitral regurgitation Mild to moderate aortic regurgitation Consider transesophageal echo if clinically indicated Previewed by: Dr. Steven Bassett MD (Electronically Signed) Final Date: 16 July 2022 17:55
[2022-07-16] MEDS ORDERED: WARFARIN 0.5 MG TAB PO ONE (18:00)
[2022-07-16 20:00] LABS: Glucose,Whole Blood 462 mg/dL (70-110)
[2022-07-16] MEDS: CITALOPRAM HYDROBROMIDE 20 MG TAB PO SCH (20:15)
[2022-07-16 21:56] LABS: Glucose,Whole Blood 294 mg/dL (70-110)
[2022-07-17] MEDS: methylPREDNISolone SOD SUCCI 125 MG/2 ML VIAL IV SCH ×5 (00:05→23:55)
--- NOTE | 2022-07-17 05:10 | P.PN ---
Subjective Progress Note Date: 07/16/22 Patient is a 77-year-old female with a past medical history of COPD presents to ER with complaints of worsening shortness of breath for the past 7 days and weight gain about 3 pounds. Initial laboratory test showed WBC 3.9 hemoglobin 12.0 and platelets 145 BUN 23 and creatinine 0.86 AST 65 ALT 34 alk phos 186 and proBNP 1700 and procalcitonin level was 0.13. Albumin 2.5. Urinalysis negative for infection. COVID-19, influenza A B and RSV PCR not detected. 07/09/2022 Patient is currently lying in the bed. Patient is on Airvo 35 L at 30% FiO2. Patient has been afebrile overnight. Was having cough with brown sputum production. No complaints of chest pain.No nausea vomiting abdominal pain or diarrhea. Chest x-ray showed improving volume overload or pulmonary edema. Laboratory data showed WBC 3.3 hemoglobin 12.2 and platelets 136 INR 1.7 Sodium 137 potassium 4.1 chloride 103 bicarb is 30 BUN 25 and creatinine 0.98 and blood sugar is 197. Calcium 7.9. 07/10/2022 Patient is seen and evaluated in follow-up today with pulmonary and cardiology following. Patient continues to have shortness of breath and maintained on oxygen with pulmonary following and patient is receiving IV ceftriaxone and has finished a Zithromax. Patient is on Coumadin with pharmacy to dose and also being maintained on IV Lasix with dose being adjusted to 40 mg twice daily and will continue. Patient does continue on IV steroids and would recommend monitoring Accu-Cheks before meals and at bedtime and use sliding scale as needed. Patient does not normally wear oxygen in the outpatient setting and recommended wean FiO2 as tolerated and will evaluate for possible home O2 requirements. Patient is currently afebrile, denies chest pain or palpitations. Patient is reporting that she is eating with occasional nausea with no vomiting noted. Encouraged increase activity as tolerated. 07/11/2022 Patient is seen and evaluated in follow-up today currently maintained on IV Lasix and kidney function stable and diuresing well with cardiology and pulmonary following closely. Patient also maintained on IV steroids along with breathing treatments and 3 L of oxygen via nasal cannula. Patient continues to report a junky cough although reports is having some improvements in her shortness of breath. Patient reports not a significant improvement. Patient is afebrile maintained on antibiotics and will continue for now. Patient denies worsening shortness of breath, chest pains, or palpitations. No reports of nausea or vomiting and patient is tolerating diet. Encouraged increased activity as tolerated. Recommend follow-up labs to monitor electrolytes and kidney functions closely. 07/12/2022 Patient is seen and evaluated in follow-up today and is maintained on telemetry monitoring with pulmonary and cardiology following. Patient reports there was an episode of atrial for ablation with RVR and cardiology was notified and given an extra dose of metoprolol and is currently sinus rhythm. Patient continues to report shortness of breath with wheezing and crackles noted. Patient is continued on IV steroids along with breathing treatments and pulmonary is following closely. Patient reports she feels quite frustrated with not getting better and wants to go home. Her follow-up LENNY for possible watchman device has been rescheduled. Patient is currently afebrile with no reports of chest pain or palpitations. No reports of nausea vomiting and patient tolerating diet. Encouraged oral intake. 07/13/2022 Patient is seen in follow-up this morning continues to be short of breath with wheezing and bronchospastic. Patient is maintained on inhalers along with breathing treatments, IV steroids, IV ceftriaxone along with IV Lasix with pulmonary and cardiology following closely. Patient is continued on 3 L via nasal cannula and reports does not wear any oxygen at home. Patient appears winded during conversation and takes multiple breaks to catch her breath. Will follow up on chest x-ray in the a.m. Patient is currently afebrile with no reports of chest pain or palpitations. Patient continues with a cough with difficulty expectorating any phlegm. No reports of nausea vomiting and patient is tolerating diet encourage small frequent meals. Patient is weak and with prolonged hospitalization would recommend possible physical therapy evaluation. Patient's blood sugars being monitored with Accu-Cheks and has sliding scale and will continue with current regimen. 07/14/2022 Patient is currently resting in the bed. Awake alert and oriented x3. Currently requiring 2 L oxygen via nasal cannula. Still complains of shortness of breath and tightness. Bilateral wheezing and scattered rhonchi especially in the basilar on physical exam. No complaints of chest pain. No nausea vomiting abdominal pain or diarrhea. Tolerating oral diet. Was also complaining of constipation. Patient is being continued on IV Solu-Medrol 60 mg every 6 hourly and is also on Lasix 40 mg every 12 IV. Pulmonary and cardiology is on board. Most recent Laboratory data reviewed. 07/15/2022 Patient states that she feels better today. Breathing status is improving. Requiring oxygen at 2 L via nasal cannula. No complaints of chest pain. Less bronchospastic today. Otherwise patient is being continued on Solu-Medrol 60 mg every 6 hourly patient is also on Lasix 40 mg every 12. Laboratory showed WBC 9.3 hemoglobin 14.1 platelets 127 INR 2.8 BUN 15 creatinine 1.14 and blood sugar is 235. Patient will be started on insulin regimen. 07/16/2022 Patient is seen and evaluated and follow-up this morning with cardiology and pulmonary following. Patient is maintained on IV steroids along with breathing treatments and weaning as tolerated down to 2 L via nasal cannula. Patient also maintained on IV Lasix and continues to have lower extremity edema and continued shortness of breath. Kidney functions are being monitored and creatinine trending down. Patient is maintained on Coumadin with pharmacy to dose and INR was 3.0 today. Recommend monitoring INR levels closely. Patient is requiring assistance with getting up and will add PT/OT therapy for evaluation. Patient reports she will be going home once stabilized and discharged. Patient is currently afebrile with no reports of chest pain or palpitations. Patient continues to report shortness of breath although no worse. Patient has had prolonged hospitalization extremely slow to improve. Will follow-up labs in the a.m. Review of systems: Constitutional: No reports of fatigue, fever, or chills Cardiovascular: No reports of chest pain or palpitations Respiratory: Reports of continued shortness of breath and bronchospastic cough with not much phlegm production, cough is improving somewhat GI: No reports of nausea, vomiting, or diarrhea : No reports of dysuria or retention Neurovascular: reports of generalized weakness All medications have been reviewed Active Medications Acetaminophen (Acetaminophen Tab 325 Mg Tab) 650 mg PO Q6H PRN PRN Reason: Mild Pain or Fever > 100.5 Last Admin: 07/15/22 21:01 Dose: 650 mg Albuterol/Ipratropium (Ipratropium-Albuterol 3 Ml Neb) 3 ml INHALATION RT-QID [facility] Last Admin: 07/16/22 08:15 Dose: 3 ml Ascorbic Acid (Ascorbic Acid 500 Mg Tab) 1,000 mg PO DAILY [facility] Last Admin: 07/16/22 08:52 Dose: 1,000 mg Budesonide (Budesonide 1 Mg/2 Ml Nebu) 1 mg INHALATION RT-BID [facility] Last Admin: 07/16/22 08:15 Dose: 1 mg Cholecalciferol (Cholecalciferol 25 Mcg (1000 Iu) Tablet) 25 mcg PO DAILY [facility] Last Admin: 07/16/22 08:52 Dose: 25 mcg Citalopram Hydrobromide (Citalopram Hydrobromide 20 Mg Tab) 20 mg PO HS [facility] Last Admin: 07/15/22 21:01 Dose: 20 mg Dextrose/Water (Dextrose 50% Syringe 50 Ml) 25 ml IVP PER PROTOCOL PRN; Protocol PRN Reason: Hypoglycemia Dextrose/Water (Dextrose 50% Syringe 50 Ml) 50 ml IVP PER PROTOCOL PRN; Protocol PRN Reason: Hypoglycemia Ferrous Sulfate (Ferrous Sulfate 325 Mg Tab) 325 mg PO Q48H [facility] Last Admin: 07/16/22 08:52 Dose: 325 mg Furosemide (Furosemide 10 Mg/Ml 4 Ml Vial) 40 mg IV Q12HR [facility] Last Admin: 07/15/22 21:02 Dose: 40 mg Insulin Aspart (Insulin Aspart (Novolog) 100 Unit/Ml Vial) 0 unit SQ [facility]; Protocol Last Admin: 07/16/22 06:38 Dose: 1 unit Insulin Detemir (Insulin Detemir (Levemir) 100 Unit/Ml Syr) 10 unit SQ DAILY@0700 [facility] Last Admin: 07/16/22 06:38 Dose: 10 unit Levothyroxine Sodium (Levothyroxine 50 Mcg Tab) 50 mcg PO DAILY@0630 [facility] Last Admin: 07/16/22 06:37 Dose: 50 mcg Losartan Potassium (Losartan 25 Mg Tab) 25 mg PO DAILY [facility] Last Admin: 07/16/22 08:52 Dose: 25 mg Magnesium Oxide (Magnesium Oxide 400 Mg Tab) 400 mg PO DAILY [facility] Last Admin: 07/16/22 08:52 Dose: 400 mg Methylprednisolone Sodium Succinate (Methylprednisolone Sod Succi 125 Mg/2 Ml Vial) 60 mg IV Q6HR [facility] Last Admin: 07/16/22 06:38 Dose: 60 mg Metoprolol Tartrate (Metoprolol Tartrate 50 Mg Tab) 50 mg PO BID [facility] Last Admin: 07/16/22 08:52 Dose: 50 mg Miscellaneous Information (Warfarin Per Pharmacy) 0 each MISCELLANE DIRECTED PRN PRN Reason: PHARMACY DOSING WARFARIN Naloxone HCl (Naloxone 0.4 Mg/Ml 1 Ml Vial) 0.2 mg IVP Q2M PRN PRN Reason: Opioid Reversal Pantoprazole Sodium (Pantoprazole 40 Mg Tablet) 40 mg PO AC-BRKFST [facility] Last Admin: 07/16/22 06:37 Dose: 40 mg Pramipexole Dihydrochloride (Pramipexole 0.125 Mg Tab) 0.125 mg PO BID [facility] Last Admin: 07/16/22 08:52 Dose: 0.125 mg Senna (Sennosides 8.6 Mg Tab) 8.6 mg PO DAILY PRN PRN Reason: Constipation Last Admin: 07/15/22 21:02 Dose: 8.6 mg Spironolactone (Spironolactone 25 Mg Tab) 25 mg PO DAILY [facility] Last Admin: 07/16/22 08:52 Dose: 25 mg PHYSICAL EXAMINATION: Patient is sitting up on the couch comfortably, no acute distress, awake alert and oriented. Morbidly obese. Currently continued on 3 L HEENT: Normocephalic. Neck is supple. Pupils reactive. Nostrils clear. Oral cavity is moist. Neck reveals no JVD, carotid bruits, or thyromegaly. CHEST EXAMINATION: Trachea is central. Symmetrical expansion. Bilateral diffuse wheezing and rhonchi. Bibasilar diminished sounds. Nonlabored breathing. CARDIAC: S1, S2 are muffled, irregular ABDOMEN: Soft. Bowel sounds present. Nontender. No organomegaly. No abdominal bruits. Extremities: 2+ bilateral pedal edema. No clubbing or cyanosis Neurologically awake, alert, oriented. Able to move all extremities. No gross focal deficits noted Skin: No rash or skin lesions. Psychiatric: Cooperative. Non-suicidal Musculoskeletal: No joint swelling or deformity. Normal range of motion. Assessment: Worsening shortness of breath which is multifactorial, due to acute CHF exacerbation as well as moderate persistent asthma Moderate persistent asthma with exacerbation Acute CHF with diastolic dysfunction Acute tracheobronchitis and possible pneumonia Obstructive sleep apnea not on CPAP at home Paroxysmal atrial fibrillation on anticoagulation with Coumadin. Status post episode of atrial fibrillation with RVR on 07/12/2022, currently rate controlled Left atrial thrombus and currently being anticoagulated with warfarin. Patient is supposed to get LENNY, Watchman procedure as an outpatient at [facility] although being rescheduled. Hypertension Morbid obesity with BMI of 40.7 Diabetes type 2 History of nonalcoholic hepatic steatosis History of GERD status post Ambrose fundoplication Hypothyroidism Right ovarian mass currently under investigation as an outpatient Prior history of smoking quit 36 years ago History of subdural hematoma in January 2022 Coumadin dosing GI prophylaxis No code Plan: Patient is currently on 2 L nasal cannula oxygen. Weaning FiO2 as tolerated with pulmonary and cardiology following Continued on IV diuresis with Lasix 40 mg every 12 hours follow-up with repeat labs in a.m., replace electrolytes per protocol Continue with methylprednisolone 60 mg every 6 hourly and DuoNebs with pulmonary following. Patient does not oxygen normally in the outpatient setting Antibiotics in the form of ceftriaxone and awaiting repeat procalcitonin level. Recommend continue monitoring Accu-Cheks before meals and at bedtime and use sliding scale as patient is on steroids and having some elevated blood sugars with a known history of diabetes, had a long acting insulin his blood sugars have been elevated Coumadin monitoring with pharmacy to dose, INR is 3.0 today Patient was supposed to follow-up with cardiology as an outpatient for LENNY with possible Watchman procedure at [facility] on 07/13 and was canceled due to being hospitalized Encouraged increased activity as tolerated and encouraged oral intake. Patient has had prolonged hospitalization with weakness and would recommend physical therapy evaluation CODE STATUS is DNR/DNI. The impression and plan of care has been dictated by Melissa Diaz, Nurse Practitioner as directed. Dr. Meri MD I have performed a history and examination and MDM of this patient, discussed the same with the dictator, and agree with the dictator's assessment and plan as written ,documented as a scribe. Based on total visit time, I have performed more than 50% of the visit. Objective - Vital Signs Vital signs: Vital Signs Temp 97.9 F 07/16/22 08:56 Pulse 81 07/16/22 08:56 Resp 19 07/16/22 08:56 BP 135/63 07/16/22 08:56 Pulse Ox 95 07/16/22 08:56 FiO2 29 07/09/22 08:00 Intake & Output 07/15/22 07/16/22 07/16/22 18:59 06:59 18:59 Intake Total 838 240 Output Total 450 150 Balance 388 -150 240 Weight 103.2 kg Intake: Oral 838 240 Output: Urine 450 150 Other: Voiding Method External Catheter External Catheter - Labs CBC & Chem 7: 07/16/22 08:22 07/16/22 08:22 Labs: Abnormal Lab Results - Last 24 Hours (Table) 07/15/22 07/15/22 07/15/22 Range/Units 08:20 11:45 16:27 WBC (3.8-10.6) k/uL MCV (80.0-100.0) fL Plt Count (150-450) k/uL Neutrophils # (1.3-7.7) k/uL Lymphocytes # (1.0-4.8) k/uL PT (9.0-12.0) sec INR (<1.2) Sodium (137-145) mmol/L Chloride 97 L (98-107) mmol/L Carbon Dioxide 35 H (22-30) mmol/L BUN 52 H (7-17) mg/dL Creatinine 1.14 H (0.52-1.04) mg/dL Glucose 235 H (74-99) mg/dL POC Glucose (mg/dL) 230 H 291 H (70-110) mg/dL 07/15/22 07/16/22 07/16/22 Range/Units 20:08 06:01 08:22 WBC (3.8-10.6) k/uL MCV (80.0-100.0) fL Plt Count (150-450) k/uL Neutrophils # (1.3-7.7) k/uL Lymphocytes # (1.0-4.8) k/uL PT 30.6 H (9.0-12.0) sec INR 3.1 H (<1.2) Sodium (137-145) mmol/L Chloride (98-107) mmol/L Carbon Dioxide (22-30) mmol/L BUN (7-17) mg/dL Creatinine (0.52-1.04) mg/dL Glucose (74-99) mg/dL POC Glucose (mg/dL) 290 H 179 H (70-110) mg/dL 07/16/22 07/16/22 Range/Units 08:22 08:22 WBC 11.1 H (3.8-10.6) k/uL MCV 102.6 H (80.0-100.0) fL Plt Count 112 L (150-450) k/uL Neutrophils # 10.4 H (1.3-7.7) k/uL Lymphocytes # 0.3 L (1.0-4.8) k/uL PT (9.0-12.0) sec INR (<1.2) Sodium 136 L (137-145) mmol/L Chloride (98-107) mmol/L Carbon Dioxide 33 H (22-30) mmol/L BUN 56 H (7-17) mg/dL Creatinine 1.12 H (0.52-1.04) mg/dL Glucose 241 H (74-99) mg/dL POC Glucose (mg/dL) (70-110) mg/dL
[2022-07-17 06:09] LABS: Glucose,Whole Blood 177 mg/dL (70-110)
[2022-07-17] MEDS: INSULIN ASPART (NovoLOG) 100 UNIT/ML VIAL SQ SCH ×4 (06:35→21:37)
[2022-07-17] MEDS: PANTOPRAZOLE 40 MG TABLET PO SCH (06:36)
[2022-07-17] MEDS: LEVOTHYROXINE 50 MCG TAB PO SCH (06:36)
[2022-07-17] MEDS: INSULIN DETEMIR (LEVEMIR) 100 UNIT/ML SYR SQ SCH ×2 (06:37→21:36)
[2022-07-17] MEDS: BUDESONIDE 1 MG/2 ML NEBU INHALATION SCH ×2 (08:40→19:27)
[2022-07-17] MEDS: IPRATROPIUM-ALBUTEROL 3 ML NEB INHALATION SCH ×4 (08:40→19:27)
[2022-07-17 08:54] LABS: Calcium 8.5 mg/dL (8.4-10.2); Magnesium 2.4 mg/dL (1.6-2.3); Potassium 4.9 mmol/L (3.5-5.1)
[2022-07-17 09:09] LABS: INR 3.1 (<1.2)
[2022-07-17] MEDS: PRAMIPEXOLE 0.125 MG TAB PO SCH ×2 (09:50→21:36)
[2022-07-17] MEDS: METOPROLOL TARTRATE 50 MG TAB PO SCH ×2 (09:50→21:36)
[2022-07-17] MEDS: CHOLECALCIFEROL 25 MCG (1000 IU) TABLET PO SCH (09:50)
[2022-07-17] MEDS: LOSARTAN 25 MG TAB PO SCH (09:50)
[2022-07-17] MEDS: SPIRONOLACTONE 25 MG TAB PO SCH (09:50)
[2022-07-17] MEDS: ASCORBIC ACID 500 MG TAB PO SCH (09:50)
[2022-07-17] MEDS: MAGNESIUM OXIDE 400 MG TAB PO SCH (09:50)
--- NOTE | 2022-07-17 10:40 | P.PN ---
Subjective Progress Note Date: 07/17/22 HISTORY OF PRESENT ILLNESS: This is a 77 year old female patient with known history of intracranial bleed while on anticoagulation for paroxysmal atrial fibrillation, history of CVA as well with good recovery, previous MM a embolization, type 2 diabetes, hypertension, hyperlipidemia, noncritical coronary artery disease on catheterization November. She is a patient of Dr. ELVIRA Patton and follows with Dr. Lindsey and scheduled for watchman procedure on July 13. Patient presented with increasing shortness of breath appears to be COPD exacerbation with bronchial asthma. Patient complains of shortness of breath with exertion continues to wheezing which is worsened from yesterday. She has followed by pulmonary medicine as well. INR today is 2.2 and we will ask for Coumadin to be held tonight. Repeat blood work reveals WBC 16.5, hemoglobin 12.8, BUN 30 creatinine 1.14. 07/11 Patient states that she feels her breathing is a little bit better from yesterday but still having some wheezing. She is continued on IV steroids, inhaled steroids and nebulizer treatments as well as antibiotics. Patient has been resumed on her home cardiac medications. INR today is 2.6. She did not receive Coumadin last evening. Pharmacy is now dosing. 07/12 Patient is seen and reevaluated and continues to have wheezing. Patient went into A. fib with RVR in the evening and Dr. Connor was contacted and ordered 1 dose of metoprolol tartrate oral at 50 mg. Patient then converted early this morning and is in a sinus rhythm. Blood pressure 150/68. INR today is 2.7. Potassium 4.5, BUN 42 and creatinine 1.19. 07/13 Patient continues to have wheezing and shortness of breath despite current treatment managed by pulmonary medicine. Her INR today is 2.8. Advise no Coumadin for tonight and recheck INR tomorrow. BUN 44 creatinine 1.1 and potassium 4.6. 07/14 She reports that her breathing is not good, feels the same as yesterday. She is on 2L NC O2. Breathing does improve some with breathing treatments. Denies any chest pain. Welling some palpitations overnight. NSR. INR 2.8, creat 1.1. 07/15 She is out of bed in chair, breathing is unchanged. Denies chest pain. Cr eatinine 1.14, K+ 5.1, INR 2.8. BP has been 150-160's. 07/16/2022 Patient examined this morning at the bedside. Patient denies chest pain or pressure. She reports continued shortness of breath. She continues to have lower extremity edema. She remains on IV Lasix 40 mg every 12 hours. blood pressure stable at 135/63. Creatinine 1.12 07/17/2022 Patient examined this morning at the bedside. Patient denies chest pain or pressure. She continues to report shortness of breath. She continues to have lower extremity edema, although slowly improving. She remains on IV Lasix. Creatinine today 1.20. BUN has increased to 61. Echocardiogram completed revealing ejection fraction 55-60%, moderate mitral regurgitation, [id number] aortic regurgitation, mild to moderate tricuspid regurgitation. PHYSICAL EXAM: VITAL SIGNS: Reviewed. GENERAL: Well-developed in no acute distress. NECK: Supple. No JVD or thyromegaly LUNGS: Respirations even and unlabored. Lungs with wheezing noted throughout. HEART: Regular rate and rhythm. S1 and S2 heard. + systolic murmur. EXTREMITIES: Normal range of motion. No clubbing or cyanosis. Peripheral pulses intact. 1-2+ bilateral lower extremity edema ASSESSMENT: Acute COPD exacerbation Tracheobronchitis Bronchial asthma Acute on chronic congestive heart failure with preserved ejection fraction, EF 55-60% Nonobstructive coronary artery disease Left atrial thrombus with plan for watchman procedure-to be rescheduled Paroxysmal atrial fibrillation History of intracranial bleed History of CVA Hypertension Hyperlipidemia Diabetes mellitus type 2 Valvular heart disease Acute kidney injury, secondary to diuresis PLAN: Continue current cardiac medications Continue anticoagulation with warfarin. Continue to monitor INR Discontinue IV Lasix. Resume oral Lasix 40 mg twice a day Daily weights, accurate I&O, and monitor kidney function Pulmonary following Stable from a cardiac perspective Further recommendations pending patient's course Nurse practitioner note has been reviewed by physician. Signing provider agrees with the documented findings, assessment, and plan of care. Objective - Vital Signs Vital signs: Vital Signs Temp 97.6 F 07/17/22 04:00 Pulse 88 07/17/22 08:53 Resp 18 07/17/22 08:53 BP 147/72 07/17/22 04:00 Pulse Ox 95 07/17/22 08:40 FiO2 29 07/09/22 08:00 Intake & Output 07/16/22 07/17/22 07/17/22 18:59 06:59 18:59 Intake Total 720 180 Balance 720 180 Weight 103.9 kg Intake: Oral 720 180 Other: Voiding Method External Catheter # Voids 2 - Labs CBC & Chem 7: 07/16/22 08:22 07/17/22 05:54 Labs: Abnormal Lab Results - Last 24 Hours (Table) 07/16/22 07/16/22 07/16/22 Range/Units 11:50 16:53 19:59 PT (9.0-12.0) sec INR (<1.2) Carbon Dioxide (22-30) mmol/L BUN (7-17) mg/dL Creatinine (0.52-1.04) mg/dL Glucose (74-99) mg/dL POC Glucose (mg/dL) 292 H 240 H 462 H (70-110) mg/dL Magnesium (1.6-2.3) mg/dL 07/16/22 07/17/22 07/17/22 Range/Units 21:55 05:54 05:54 PT 30.0 H (9.0-12.0) sec INR 3.1 H (<1.2) Carbon Dioxide 37 H (22-30) mmol/L BUN 61 H (7-17) mg/dL Creatinine 1.20 H (0.52-1.04) mg/dL Glucose 177 H (74-99) mg/dL POC Glucose (mg/dL) 294 H (70-110) mg/dL Magnesium 2.4 H (1.6-2.3) mg/dL 07/17/22 Range/Units 06:08 PT (9.0-12.0) sec INR (<1.2) Carbon Dioxide (22-30) mmol/L BUN (7-17) mg/dL Creatinine (0.52-1.04) mg/dL Glucose (74-99) mg/dL POC Glucose (mg/dL) 177 H (70-110) mg/dL Magnesium (1.6-2.3) mg/dL
[2022-07-17] MEDS: FUROSEMIDE 10 MG/ML 4 ML VIAL IV SCH (11:30)
--- NOTE | 2022-07-17 11:37 | P.PN ---
Subjective Progress Note Date: 07/17/22 I'm seeing this patient in new consultation today 07/09/2022 for progressive shortness of breath starting yesterday. This is a 77-year-old white female with a significant medical history for congestive heart failure, moderate persistent asthma, atrial fibrillation, left atrial appendage thrombus, diabetes mellitus type 2, hypertension, hypothyroidism, nonalcoholic cirrhosis of the liver, brain bleed, mild obstructive sleep apnea, remote history of smoking 36 years ago. Patient presented yesterday for difficulty breathing that started on Saturday. Patient reports shortness breath especially when exerting herself or lying flat, wheezing, fluid retention in her lower extremities, weight gain of about 3 pounds, and heart palpitations. She also reports some upper respiratory tract infection symptoms such as runny nose, cough with brown sputum production, and chills. She denies any subjective fevers or chest pain. Patient does follow with Dr. Gupta in the office for management of her moderate persistent asthma and mild obstructive sleep apnea. Patient patient states that she takes alb uterol and Symbicort on an outpatient basis. She also follows with a sheet metal foreman from [place], and has a planned LENNY and watchman procedure this Saturday. Patient is currently resting in bed, on AIRVO 35 L and 30% high flow cannula, in no acute distress. Chest x-ray on arrival showed mild cardiomegaly with mild diffuse interstitial opacities. No obvious focal consolidation. NT proBNP was mildly elevated at 1700. CBC on arrival shows a non-elevated WBC count of 3.9, hemoglobin 12, hematocrit 37, platelets 145,000. Patient's INR on arrival was sub-therapeutic at 1.6. Patient does take Coumadin on outpatient basis. Patient has reported some minimal rectal bleeding on and Saturday of this previous week. No bleeding since reported. BMP shows a sodium 137, potassium 4.2, chloride 104, serum CO2 31, BUN 23, creatinine 0.86, glucose 113. Lactic acid 1.5. LFTs mildly elevated. Negative for influenza, RSV, COVID-19. Pro-calcitonin levels pending. Patient is currently receiving bronchodilators and IV Solu-Medrol. She is also receiving empiric antibiotics for community associated pneumonia. Remains afebrile. Vital signs are stable. Progress note dated 07/10/2022. 7-year-old patient seen for shortness of breath, in room 374, secondary to asthma exacerbation, and diastolic CHF. Currently, the patient's on 3 L of oxygen. She's not receiving any IV fluids. Clinically, she feels better. White count 16.5, hemoglobin 12.8, hematocrit 40, and platelet count is normal. PTT is 22 with an INR of 2.2. Sodium, potassium, chloride, CO2, and anion gap, are all normal. BUN is 30 with a creatinine of 1.14. Chest x-ray shows a pattern of improving volume status. Progress note dated 07/11/2022. 77-year-old female seen today in room 374. The patient was admitted with a diagnosis of asthma exacerbation, and diastolic CHF. The patient was to have a cardiac procedure done on Saturday, and an outside hospital. The patient should not have that done at this time. She remains on 2 L of oxygen. No IV fluids. Her daughter is in the room with her. The patient's only feeling marginally better. I did mention to the sheet metal foreman here, at her procedure should be canc eled. White count 10.5, hemoglobin 12.5, hematocrit 39.5, with a normal platelet count. PT 25.6 with an INR 2.6. Sodium 136, potassium 4.2, chlorides 100, CO2 31, BUN 38, creatinine 1.10. Progress note dated 07/12/2022. 77-year-old patient seen in room 374. The patient states that she had a bad night last night, apparently developing atrial fibrillation. She is also quite bronchospastic and wheezy. Currently, she is on 2 L of oxygen. She's not receiving any IV fluids. Saturations are 97%. She was receiving a breathing treatment today, when we saw her in the room. No new labs today to report. Progress note dated 07/13/2022. 77-year-old female seen in room 374. The patient complains of being short of breath, and quite bronchospastic. She feels like she can't cough up phlegm. Currently, she remains on 2 L of oxygen. She's not receiving any IV fluids. She remains on corticosteroids, inhaled corticosteroids, as well as albuterol sulfate and ipratropium bromide. She apparently cannot tolerate long-acting beta agonist, which is why she's not receiving them. PTT 26.9, INR 2.8. Sodium 137, potassium 4.6, chlorides 100, CO2 36, BUN 44, and creatinine 1.10. Glucose 229. Calcium is 8.2. Progress note dated 07/14/2022. 77-year-old female seen again in room 374. The patient complains of tightness in her chest, shortness of breath, and bronchospasm. She's having a hard time coughing up any phlegm. She's currently on 2 L. She certainly no worse. She's not receiving any IV fluids. No new labs today other than a PT of 26.9 and an INR of 2.8. Glucose 252. Progress note dated 07/15/2022. 77-year-old female seen today in room 374. Today she sitting up in the chair. Currently, she is on 2 L of oxygen. She's not receiving IV fluids. She does feel a bit better today. She still has shortness of breath, chest tightness, and cough, with bronchospasm. Labs today include a white count 9.3, hemoglobin 14.2, hematocrit 43.8, and a platelet count of 127,000. PTT is 27.1, with an INR of 2.8. Sodium 137, potassium 5.1, chlorides 97, CO2 35, BUN 52, and cr eatinine 1.14. Progress note dated 07/16/2022. 77-year-old female seen along with her daughter in room 374. The patient remains on 2 L of oxygen. She's feeling better and breathing better. She ce rtainly much less bronchospastic. She denies any chest pain or chest discomfort. Laboratory data includes a white count 11.1, hemoglobin 13.8, hematocrit 43, and a platelet count of 112,000. PTT 30.6, INR 3.1. Sodium 136, potassium 5.1, chlorides 98, CO2 33, BUN 56, creatinine 1.12. Glucose 241. Calcium 8.5. On today's evaluation of 07/17/2022, the patient is still complaining of shortness of breath. On examination he remains bronchospastic and wheezy. She has been hospital for more than a week being treated for an acute COPD exacerbation tracheobronchitis. Chest x-ray was done at time of admission showed no evidence of any acute pneumonia. He is on a combination of bronchodilators and she is also on IV Medrol 60 mg every 6 hours. She has preserved LV function with an EF of around 55-60%. She has nonobstructive coronary artery disease. She has paroxysmal A. fib and the patient is currently on anticoagulation with a therapeutic PT/INR. She has diabetes mellitus type 2, hypertension hyperlipidemia, she also had a INR of 3.1. BUN is 61 with a creatinine of 1.2. The pro-calcitonin level was at 0.09. Her viral serology came back all negative. She is currently on oxygen at 2 L/m nasal cannula with a pulse ox of 95%. Objective - Vital Signs Vital signs: Vital Signs Temp 97.7 F 07/17/22 09:46 Pulse 83 07/17/22 09:46 Resp 18 07/17/22 09:46 BP 130/68 07/17/22 09:46 Pulse Ox 95 07/17/22 09:46 FiO2 29 07/09/22 08:00 Intake & Output 07/16/22 07/17/22 07/17/22 18:59 06:59 18:59 Intake Total 720 180 Balance 720 180 Weight 103.9 kg Intake: Oral 720 180 Other: Voiding Method External Catheter # Voids 2 - Exam No acute distress, oriented 3. Currently on 2 L. Minimal conversational dyspnea. HEENT examination is grossly unremarkable. Neck supple. Full range of motion. No adenopathy thyromegaly or neck vein distention. Cardiovascular examination reveals regular rhythm rate. S1-S2 normal. No S3 or S4. No discernible murmur noted. Heart rate 86 bpm. Heart sounds are distant. Lungs reveal scattered coarse bilateral expiratory rhonchi. Expiratory wheezes are noted. Breath sounds are equal bilaterally. No crackles. Breath sounds are diminished throughout. Saturations are 95 % on 2 L. Abdomen soft bowel sounds are heard. No masses or tenderness. Extremities are intact. No cyanosis clubbing or edema. Skin is without rash or lesion. Neurologic examination is brief but nonfocal. - Labs CBC & Chem 7: 07/16/22 08:22 07/17/22 05:54 Labs: Abnormal Lab Results - Last 24 Hours (Table) 07/16/22 07/16/22 07/16/22 Range/Units 11:50 16:53 19:59 PT (9.0-12.0) sec INR (<1.2) Carbon Dioxide (22-30) mmol/L BUN (7-17) mg/dL Creatinine (0.52-1.04) mg/dL Glucose (74-99) mg/dL POC Glucose (mg/dL) 292 H 240 H 462 H (70-110) mg/dL Magnesium (1.6-2.3) mg/dL 07/16/22 07/17/22 07/17/22 Range/Units 21:55 05:54 05:54 PT 30.0 H (9.0-12.0) sec INR 3.1 H (<1.2) Carbon Dioxide 37 H (22-30) mmol/L BUN 61 H (7-17) mg/dL Creatinine 1.20 H (0.52-1.04) mg/dL Glucose 177 H (74-99) mg/dL POC Glucose (mg/dL) 294 H (70-110) mg/dL Magnesium 2.4 H (1.6-2.3) mg/dL 07/17/22 Range/Units 06:08 PT (9.0-12.0) sec INR (<1.2) Carbon Dioxide (22-30) mmol/L BUN (7-17) mg/dL Creatinine (0.52-1.04) mg/dL Glucose (74-99) mg/dL POC Glucose (mg/dL) 177 H (70-110) mg/dL Magnesium (1.6-2.3) mg/dL Assessment and Plan Plan: Acute exacerbation of asthma, as well as mild exacerbation of diastolic CHF, leading to hypoxemic respiratory failure. The pro-calcitonin level was normal. The chest x-ray initially was within normal limits and the patient is on a combination of bronchodilators and steroids. The vital serology was also nega tive. Improvement is ongoing but it's quite slow. Echocardiogram shows a preserved LV function History of paroxysmal atrial fibrillation. The INR is therapeutic at this point in time History of subdural hematoma, January 2022. History of rectal bleeding. Type 2 diabetes mellitus. Essential hypertension. Morbid obesity. Nonalcoholic steatohepatitis. Gastroesophageal reflux disease, without esophagitis, status post Ambrose fundoplication. History of hypothyroidism. Mild obstructive sleep apnea syndrome. Previous history of tobacco use. Right ovarian mass. Plan Repeat chest x-ray Continue bronchodilators and steroids and the patient is on DuoNeb neb blotchiness on the clock in addition to Perforomist and Pulmicort updrafts twice a day Bronchoscopy may be needed if no improvement. However, the patient on anticoagulants. INR is at 3.1. I would rather avoid such a procedure especially the patient is an anticoagulants. We'll continue to follow.
[2022-07-17 11:52] LABS: Glucose,Whole Blood 233 mg/dL (70-110)
--- NOTE | 2022-07-17 12:29 | XR ---
EXAMINATION TYPE: XR chest 1V portable DATE OF EXAM: 07/17/2022 COMPARISON: 07/09/2022 INDICATION: Short of breath. Exacerbation, pulmonary edema TECHNIQUE: Single frontal view of the chest is obtained. FINDINGS: The heart size is upper limits for normal. The pulmonary vasculature is normal. The lungs are clear. IMPRESSION: 1. No acute pulmonary process.
[2022-07-17] MEDS: ACETAMINOPHEN TAB 325 MG TAB PO PRN (12:50)
--- NOTE | 2022-07-17 13:47 | XR ---
EXAMINATION TYPE: XR abdomen 1V DATE OF EXAM: 07/17/2022 COMPARISON: None INDICATION: Abdominal distention pain and nausea and diarrhea TECHNIQUE: Single view abdomen FINDINGS: There is a nonspecific bowel gas pattern. Small bowel and colon contains air. No dilated loops of bow el are evident. Some air-filled loops may be within the mid abdomen. No free air is evident. No suspi cious differential air-fluid levels are evident. Psoas margins are normal. No organomegaly is present. IMPRESSION: 1. Nonspecific bowel gas pattern in the upper abdomen.
[2022-07-17] MEDS: FUROSEMIDE 10 MG/ML 10 ML VIAL IV SCH ×2 (15:41→21:37)
[2022-07-17] MEDS ORDERED: FUROSEMIDE 40 MG TAB PO SCH (16:00)
[2022-07-17 16:41] LABS: Glucose,Whole Blood 238 mg/dL (70-110)
[2022-07-17] MEDS ORDERED: WARFARIN 0.5 MG TAB PO ONE (18:00)
[2022-07-17 19:59] LABS: Glucose,Whole Blood 270 mg/dL (70-110)
[2022-07-17] MEDS: CITALOPRAM HYDROBROMIDE 20 MG TAB PO SCH (21:36)
[2022-07-18 05:56] LABS: Glucose,Whole Blood 181 mg/dL (70-110)
[2022-07-18] MEDS: INSULIN ASPART (NovoLOG) 100 UNIT/ML VIAL SQ SCH ×4 (06:10→20:13)
[2022-07-18] MEDS: INSULIN DETEMIR (LEVEMIR) 100 UNIT/ML SYR SQ SCH ×2 (06:11→20:13)
[2022-07-18] MEDS: LEVOTHYROXINE 50 MCG TAB PO SCH (06:12)
[2022-07-18] MEDS: PANTOPRAZOLE 40 MG TABLET PO SCH (06:13)
[2022-07-18] MEDS: methylPREDNISolone SOD SUCCI 125 MG/2 ML VIAL IV SCH ×2 (06:13→13:34)
--- NOTE | 2022-07-18 06:19 | P.PN ---
Subjective Progress Note Date: 07/17/22 Patient is a 77-year-old female with a past medical history of COPD presents to ER with complaints of worsening shortness of breath for the past 7 days and weight gain about 3 pounds. Initial laboratory test showed WBC 3.9 hemoglobin 12.0 and platelets 145 BUN 23 and creatinine 0.86 AST 65 ALT 34 alk phos 186 and proBNP 1700 and procalcitonin level was 0.13. Albumin 2.5. Urinalysis negative for infection. COVID-19, influenza A B and RSV PCR not detected. 07/09/2022 Patient is currently lying in the bed. Patient is on Airvo 35 L at 30% FiO2. Patient has been afebrile overnight. Was having cough with brown sputum production. No complaints of chest pain.No nausea vomiting abdominal pain or diarrhea. Chest x-ray showed improving volume overload or pulmonary edema. Laboratory data showed WBC 3.3 hemoglobin 12.2 and platelets 136 INR 1.7 Sodium 137 potassium 4.1 chloride 103 bicarb is 30 BUN 25 and creatinine 0.98 and blood sugar is 197. Calcium 7.9. 07/10/2022 Patient is seen and evaluated in follow-up today with pulmonary and cardiology following. Patient continues to have shortness of breath and maintained on oxygen with pulmonary following and patient is receiving IV ceftriaxone and has finished a Zithromax. Patient is on Coumadin with pharmacy to dose and also being maintained on IV Lasix with dose being adjusted to 40 mg twice daily and will continue. Patient does continue on IV steroids and would recommend monitoring Accu-Cheks before meals and at bedtime and use sliding scale as needed. Patient does not normally wear oxygen in the outpatient setting and recommended wean FiO2 as tolerated and will evaluate for possible home O2 requirements. Patient is currently afebrile, denies chest pain or palpitations. Patient is reporting that she is eating with occasional nausea with no vomiting noted. Encouraged increase activity as tolerated. 07/11/2022 Patient is seen and evaluated in follow-up today currently maintained on IV Lasix and kidney function stable and diuresing well with cardiology and pulmonary following closely. Patient also maintained on IV steroids along with breathing treatments and 3 L of oxygen via nasal cannula. Patient continues to report a junky cough although reports is having some improvements in her shortness of breath. Patient reports not a significant improvement. Patient is afebrile maintained on antibiotics and will continue for now. Patient denies worsening shortness of breath, chest pains, or palpitations. No reports of nausea or vomiting and patient is tolerating diet. Encouraged increased activity as tolerated. Recommend follow-up labs to monitor electrolytes and kidney functions closely. 07/12/2022 Patient is seen and evaluated in follow-up today and is maintained on telemetry monitoring with pulmonary and cardiology following. Patient reports there was an episode of atrial for ablation with RVR and cardiology was notified and given an extra dose of metoprolol and is currently sinus rhythm. Patient continues to report shortness of breath with wheezing and crackles noted. Patient is continued on IV steroids along with breathing treatments and pulmonary is following closely. Patient reports she feels quite frustrated with not getting better and wants to go home. Her follow-up LENNY for possible watchman device has been rescheduled. Patient is currently afebrile with no reports of chest pain or palpitations. No reports of nausea vomiting and patient tolerating diet. Encouraged oral intake. 07/13/2022 Patient is seen in follow-up this morning continues to be short of breath with wheezing and bronchospastic. Patient is maintained on inhalers along with breathing treatments, IV steroids, IV ceftriaxone along with IV Lasix with pulmonary and cardiology following closely. Patient is continued on 3 L via nasal cannula and reports does not wear any oxygen at home. Patient appears winded during conversation and takes multiple breaks to catch her breath. Will follow up on chest x-ray in the a.m. Patient is currently afebrile with no reports of chest pain or palpitations. Patient continues with a cough with difficulty expectorating any phlegm. No reports of nausea vomiting and patient is tolerating diet encourage small frequent meals. Patient is weak and with prolonged hospitalization would recommend possible physical therapy evaluation. Patient's blood sugars being monitored with Accu-Cheks and has sliding scale and will continue with current regimen. 07/14/2022 Patient is currently resting in the bed. Awake alert and oriented x3. Currently requiring 2 L oxygen via nasal cannula. Still complains of shortness of breath and tightness. Bilateral wheezing and scattered rhonchi especially in the basilar on physical exam. No complaints of chest pain. No nausea vomiting abdominal pain or diarrhea. Tolerating oral diet. Was also complaining of constipation. Patient is being continued on IV Solu-Medrol 60 mg every 6 hourly and is also on Lasix 40 mg every 12 IV. Pulmonary and cardiology is on board. Most recent Laboratory data reviewed. 07/15/2022 Patient states that she feels better today. Breathing status is improving. Requiring oxygen at 2 L via nasal cannula. No complaints of chest pain. Less bronchospastic today. Otherwise patient is being continued on Solu-Medrol 60 mg every 6 hourly patient is also on Lasix 40 mg every 12. Laboratory showed WBC 9.3 hemoglobin 14.1 platelets 127 INR 2.8 BUN 15 creatinine 1.14 and blood sugar is 235. Patient will be started on insulin regimen. 07/16/2022 Patient is seen and evaluated and follow-up this morning with cardiology and pulmonary following. Patient is maintained on IV steroids along with breathing treatments and weaning as tolerated down to 2 L via nasal cannula. Patient also maintained on IV Lasix and continues to have lower extremity edema and continued shortness of breath. Kidney functions are being monitored and creatinine trending down. Patient is maintained on Coumadin with pharmacy to dose and INR was 3.0 today. Recommend monitoring INR levels closely. Patient is requiring assistance with getting up and will add PT/OT therapy for evaluation. Patient reports she will be going home once stabilized and discharged. Patient is currently afebrile with no reports of chest pain or palpitations. Patient continues to report shortness of breath although no worse. Patient has had prolonged hospitalization extremely slow to improve. Will follow-up labs in the a.m. 07/17/2022 Patient is seen and evaluated in follow-up today with pulmonary and cardiology following. Patient has been switched to oral Lasix elbow continues to have significant lower extremity edema with shortness of breath and overload. We'll transition Lasix back to IV at 60 mg twice a day and follow-up with repeat labs. Current creatinine is 1.2. Patient reports is making urine but unsure how much in intake and output is not being documented strictly. Patient did have some increased abdominal distention and reports not having much of bowel movements will order abdominal x-ray and follow-up chest x-ray from today is pending. Patient is currently afebrile and denies chest pain or palpitations. No reports of nausea or vomiting and patient is tolerating diet. Review of systems: Constitutional: No reports of fatigue, fever, or chills Cardiovascular: No reports of chest pain or palpitations Respiratory: Reports of continued shortness of breath and bronchospastic cough with not much phlegm production, cough is improving somewhat GI: No reports of nausea, vomiting, or diarrhea : No reports of dysuria or retention Neurovascular: reports of generalized weakness All medications have been reviewed Active Medications Acetaminophen (Acetaminophen Tab 325 Mg Tab) 650 mg PO Q6H PRN PRN Reason: Mild Pain or Fever > 100.5 Last Admin: 07/15/22 21:01 Dose: 650 mg Albuterol/Ipratropium (Ipratropium-Albuterol 3 Ml Neb) 3 ml INHALATION RT-QID [facility] Last Admin: 07/17/22 08:40 Dose: 3 ml Ascorbic Acid (Ascorbic Acid 500 Mg Tab) 1,000 mg PO DAILY [facility] Last Admin: 07/17/22 09:50 Dose: 1,000 mg Budesonide (Budesonide 1 Mg/2 Ml Nebu) 1 mg INHALATION RT-BID [facility] Last Admin: 07/17/22 08:40 Dose: 1 mg Cholecalciferol (Cholecalciferol 25 Mcg (1000 Iu) Tablet) 25 mcg PO DAILY [facility] Last Admin: 07/17/22 09:50 Dose: 25 mcg Citalopram Hydrobromide (Citalopram Hydrobromide 20 Mg Tab) 20 mg PO HS [facility] Last Admin: 07/16/22 20:15 Dose: 20 mg Dextrose/Water (Dextrose 50% Syringe 50 Ml) 25 ml IVP PER PROTOCOL PRN; Protocol PRN Reason: Hypoglycemia Dextrose/Water (Dextrose 50% Syringe 50 Ml) 50 ml IVP PER PROTOCOL PRN; Protocol PRN Reason: Hypoglycemia Ferrous Sulfate (Ferrous Sulfate 325 Mg Tab) 325 mg PO Q48H [facility] Last Admin: 07/16/22 08:52 Dose: 325 mg Furosemide (Furosemide 40 Mg Tab) 40 mg PO BID@0900,1600 [facility] Insulin Aspart (Insulin Aspart (Novolog) 100 Unit/Ml Vial) 0 unit SQ ACHS [facility]; Protocol Last Admin: 07/17/22 06:35 Dose: 1 unit Insulin Detemir (Insulin Detemir (Levemir) 100 Unit/Ml Syr) 10 unit SQ BI D@0700,2100 [facility] Last Admin: 07/17/22 06:37 Dose: 10 unit Levothyroxine Sodium (Levothyroxine 50 Mcg Tab) 50 mcg PO DAILY@0630 [facility] Last Admin: 07/17/22 06:36 Dose: 50 mcg Losartan Potassium (Losartan 25 Mg Tab) 25 mg PO DAILY [facility] Last Admin: 07/17/22 09:50 Dose: 25 mg Magnesium Oxide (Magnesium Oxide 400 Mg Tab) 400 mg PO DAILY [facility] Last Admin: 07/17/22 09:50 Dose: 400 mg Methylprednisolone Sodium Succinate (Methylprednisolone Sod Succi 125 Mg/2 Ml Vial) 60 mg IV Q6HR [facility] Last Admin: 07/17/22 06:36 Dose: 60 mg Metoprolol Tartrate (Metoprolol Tartrate 50 Mg Tab) 50 mg PO BID [facility] Last Admin: 07/17/22 09:50 Dose: 50 mg Miscellaneous Information (Warfarin Per Pharmacy) 0 each MISCELLANE DIRECTED PRN PRN Reason: PHARMACY DOSING WARFARIN Naloxone HCl (Naloxone 0.4 Mg/Ml 1 Ml Vial) 0.2 mg IVP Q2M PRN PRN Reason: Opioid Reversal Pantoprazole Sodium (Pantoprazole 40 Mg Tablet) 40 mg PO AC-BRKFST [facility] Last Admin: 07/17/22 06:36 Dose: 40 mg Pramipexole Dihydrochloride (Pramipexole 0.125 Mg Tab) 0.125 mg PO BID [facility] Last Admin: 07/17/22 09:50 Dose: 0.125 mg Senna (Sennosides 8.6 Mg Tab) 8.6 mg PO DAILY PRN PRN Reason: Constipation Last Admin: 07/15/22 21:02 Dose: 8.6 mg Spironolactone (Spironolactone 25 Mg Tab) 25 mg PO DAILY [facility] Last Admin: 07/17/22 09:50 Dose: 25 mg PHYSICAL EXAMINATION: Patient is sitting up on the couch comfortably, no acute distress, awake alert and oriented. Morbidly obese. Currently continued on 3 L HEENT: Normocephalic. Neck is supple. Pupils reactive. Nostrils clear. Oral cavity is moist. Neck reveals no JVD, carotid bruits, or thyromegaly. CHEST EXAMINATION: Trachea is central. Symmetrical expansion. Bilateral diffuse wheezing and rhonchi. Bibasilar diminished sounds. Nonlabored breathing. CARDIAC: S1, S2 are muffled, irregular ABDOMEN: Soft. Bowel sounds present. Nontender. No organomegaly. No abdominal bruits. Extremities: 2+ bilateral pedal edema. No clubbing or cyanosis Neurologically awake, alert, oriented. Able to move all extremities. No gross focal deficits noted Skin: No rash or skin lesions. Psychiatric: Cooperative. Non-suicidal Musculoskeletal: No joint swelling or deformity. Normal range of motion. Assessment: Worsening shortness of breath which is multifactorial, due to acute CHF exacerbation as well as moderate persistent asthma Moderate persistent asthma with exacerbation Acute CHF with diastolic dysfunction Acute tracheobronchitis and possible pneumonia Obstructive sleep apnea not on CPAP at home Paroxysmal atrial fibrillation on anticoagulation with Coumadin. Status post episode of atrial fibrillation with RVR on 07/12/2022, currently rate controlled Left atrial thrombus and currently being anticoagulated with warfarin. Patient is supposed to get LENNY, Watchman procedure as an outpatient at [facility] although being rescheduled. Hypertension Morbid obesity with BMI of 40.7 Diabetes type 2 History of nonalcoholic hepatic steatosis History of GERD status post Ambrose fundoplication Hypothyroidism Right ovarian mass currently under investigation as an outpatient Prior history of smoking quit 36 years ago History of subdural hematoma in January 2022 Coumadin dosing GI prophylaxis No code Plan: Patient is currently on 2 L nasal cannula oxygen. Weaning FiO2 as tolerated with pulmonary and cardiology following. Patient does not normally wear oxygen at home and will require 2 L via nasal cannula on discharge to manage COPD Continued on IV diuresis with Lasix 40 mg every 12 hours and continues to have l ower extremity edema and overload will increase Lasix to 60 mg IV twice daily with follow-up labs Continue with IV steroids 60 mg every 6 hourly and DuoNebs with pulmonary following. Recommend continue monitoring Accu-Cheks before meals and at bedtime and use sliding scale as patient is on steroids and having some elevated blood sugars with a known history of diabetes, continue sliding scale as well as long acting insulin as blood sugars have been elevated Coumadin monitoring with pharmacy to dose, INR is 3.0 today Patient was supposed to follow-up with cardiology as an outpatient for LENNY with possible Watchman procedure at [facility] on 07/13 and was canceled due to being hospitalized. Will need to be rescheduled once respiratory status is more stable Encouraged increased activity as tolerated and encouraged oral intake. Patient has had prolonged hospitalization with weakness. Patient plans on returning home with family once stabilized and discharged Will follow-up with labs and discuss further with pulmonary with possible discharge in the next 24-48 hours CODE STATUS is DNR/DNI. The impression and plan of care has been dictated by Melissa Diaz Nurse Pra ctitioner as directed. Dr. Meri MD I have performed a history and examination and MDM of this patient, discussed the same with the dictator, and agree with the dictator's assessment and plan as written ,documented as a scribe. Based on total visit time, I have performed more than 50% of the visit. Objective - Vital Signs Vital signs: Vital Signs Temp 97.6 F 07/17/22 04:00 Pulse 88 07/17/22 08:53 Resp 18 07/17/22 08:53 BP 147/72 07/17/22 04:00 Pulse Ox 95 07/17/22 08:40 FiO2 29 07/09/22 08:00 Intake & Output 07/16/22 07/17/22 07/17/22 18:59 06:59 18:59 Intake Total 720 180 Balance 720 180 Weight 103.9 kg Intake: Oral 720 180 Other: Voiding Method External Catheter # Voids 2 - Labs CBC & Chem 7: 07/16/22 08:22 07/17/22 05:54 Labs: Abnormal Lab Results - Last 24 Hours (Table) 07/16/22 07/16/22 07/16/22 Range/Units 11:50 16:53 19:59 PT (9.0-12.0) sec INR (<1.2) Carbon Dioxide (22-30) mmol/L BUN (7-17) mg/dL Creatinine (0.52-1.04) mg/dL Glucose (74-99) mg/dL POC Glucose (mg/dL) 292 H 240 H 462 H (70-110) mg/dL Magnesium (1.6-2.3) mg/dL 07/16/22 07/17/22 07/17/22 Range/Units 21:55 05:54 05:54 PT 30.0 H (9.0-12.0) sec INR 3.1 H (<1.2) Carbon Dioxide 37 H (22-30) mmol/L BUN 61 H (7-17) mg/dL Creatinine 1.20 H (0.52-1.04) mg/dL Glucose 177 H (74-99) mg/dL POC Glucose (mg/dL) 294 H (70-110) mg/dL Magnesium 2.4 H (1.6-2.3) mg/dL 07/17/22 Range/Units 06:08 PT (9.0-12.0) sec INR (<1.2) Carbon Dioxide (22-30) mmol/L BUN (7-17) mg/dL Creatinine (0.52-1.04) mg/dL Glucose (74-99) mg/dL POC Glucose (mg/dL) 177 H (70-110) mg/dL Magnesium (1.6-2.3) mg/dL
[2022-07-18] MEDS: MAGNESIUM OXIDE 400 MG TAB PO SCH (08:21)
[2022-07-18] MEDS: ASCORBIC ACID 500 MG TAB PO SCH (08:21)
[2022-07-18] MEDS: FUROSEMIDE 10 MG/ML 10 ML VIAL IV SCH (08:21)
[2022-07-18] MEDS: SPIRONOLACTONE 25 MG TAB PO SCH (08:22)
[2022-07-18] MEDS: PRAMIPEXOLE 0.125 MG TAB PO SCH ×2 (08:22→20:13)
[2022-07-18] MEDS: LOSARTAN 25 MG TAB PO SCH (08:22)
[2022-07-18] MEDS: CHOLECALCIFEROL 25 MCG (1000 IU) TABLET PO SCH (08:22)
[2022-07-18] MEDS: FERROUS SULFATE 325 MG TAB PO SCH (08:22)
[2022-07-18] MEDS: METOPROLOL TARTRATE 50 MG TAB PO SCH ×2 (08:22→20:13)
[2022-07-18] MEDS: BUDESONIDE 1 MG/2 ML NEBU INHALATION SCH ×2 (09:28→20:36)
[2022-07-18] MEDS: IPRATROPIUM-ALBUTEROL 3 ML NEB INHALATION SCH ×4 (09:29→20:36)
[2022-07-18 10:06] LABS: Calcium 8.5 mg/dL (8.4-10.2); Potassium 4.8 mmol/L (3.5-5.1)
[2022-07-18 10:17] LABS: INR 3.3 (<1.2); Prothrombin Time 31.7 sec (9.0-12.0)
[2022-07-18 11:44] LABS: Glucose,Whole Blood 167 mg/dL (70-110)
--- NOTE | 2022-07-18 12:55 | P.PN ---
Subjective Progress Note Date: 07/18/22 HISTORY OF PRESENT ILLNESS: This is a 77 year old female patient with known history of intracranial bleed while on anticoagulation for paroxysmal atrial fibrillation, history of CVA as well with good recovery, previous MM a embolization, type 2 diabetes, hypertension, hyperlipidemia, noncritical coronary artery disease on catheterization November. She is a patient of Dr. ELVIRA Patton and follows with Dr. Lindsey and scheduled for watchman procedure on July 13. Patient presented with increasing shortness of breath appears to be COPD exacerbation with bronchial asthma. Patient complains of shortness of breath with exertion continues to wheezing which is worsened from yesterday. She has followed by pulmonary medicine as well. INR today is 2.2 and we will ask for Coumadin to be held tonight. Repeat blood work reveals WBC 16.5, hemoglobin 12.8, BUN 30 creatinine 1.14. 07/11 Patient states that she feels her breathing is a little bit better from yesterday but still having some wheezing. She is continued on IV steroids, inhaled steroids and nebulizer treatments as well as antibiotics. Patient has been resumed on her home cardiac medications. INR today is 2.6. She did not receive Coumadin last evening. Pharmacy is now dosing. 07/12 Patient is seen and reevaluated and continues to have wheezing. Patient went into A. fib with RVR in the evening and Dr. Connor was contacted and ordered 1 dose of metoprolol tartrate oral at 50 mg. Patient then converted early this morning and is in a sinus rhythm. Blood pressure 150/68. INR today is 2.7. Potassium 4.5, BUN 42 and creatinine 1.19. 07/13 Patient continues to have wheezing and shortness of breath despite current treatment managed by pulmonary medicine. Her INR today is 2.8. Advise no Coumadin for tonight and recheck INR tomorrow. BUN 44 creatinine 1.1 and potassium 4.6. 07/14 She reports that her breathing is not good, feels the same as yesterday. She is on 2L NC O2. Breathing does improve some with breathing treatments. Denies any chest pain. [place] some palpitations overnight. NSR. INR 2.8, creat 1.1. 07/15 She is out of bed in chair, breathing is unchanged. Denies chest pain. Cr eatinine 1.14, K+ 5.1, INR 2.8. BP has been 150-160's. 07/16/2022 Patient examined this morning at the bedside. Patient denies chest pain or pressure. She reports continued shortness of breath. She continues to have lower extremity edema. She remains on IV Lasix 40 mg every 12 hours. blood pressure stable at 135/63. Creatinine 1.12 07/17/2022 Patient examined this morning at the bedside. Patient denies chest pain or pressure. She continues to report shortness of breath. She continues to have lower extremity edema, although slowly improving. She remains on IV Lasix. Creatinine today 1.20. BUN has increased to 61. Echocardiogram completed revealing ejection fraction 55-60%, moderate mitral regurgitation, [id number] aortic regurgitation, mild to moderate tricuspid regurgitation. 07/18/2022 Patient examined this morning at the bedside. Patient reports improvement in her shortness of breath. She denies any chest pain or pressure. Patient was transitioned to oral Lasix yesterday, however in the afternoon she was placed back on IV Lasix per primary medicine. Patient with increasing BUN of 70 today. Creatinine 1.22. Patient's INR 3.3. PHYSICAL EXAM: VITAL SIGNS: Reviewed. GENERAL: Well-developed in no acute distress. NECK: Supple. No JVD or thyromegaly LUNGS: Respirations even and unlabored. Lungs with wheezing noted throughout. HEART: Regular rate and rhythm. S1 and S2 heard. + systolic murmur. EXTREMITIES: Normal range of motion. No clubbing or cyanosis. Peripheral pulses intact. 1-2+ bilateral lower extremity edema ASSESSMENT: Acute COPD exacerbation Tracheobronchitis Bronchial asthma Acute on chronic congestive heart failure with preserved ejection fraction, EF 55-60% Nonobstructive coronary artery disease Left atrial thrombus with plan for watchman procedure-to be rescheduled Paroxysmal atrial fibrillation History of intracranial bleed History of CVA Hypertension Hyperlipidemia Diabetes mellitus type 2 Valvular heart disease Acute kidney injury, secondary to diuresis PLAN: Continue current cardiac medications Pharmacy to dose Coumadin. No Coumadin tonight. Continue to monitor INR Patient with continued lower extremity edema, however lungs are without crackles. Discontinue IV Lasix secondary to increased BUN of 70 today, 23 on admission. Creatinine also rising at 1.22, on admission 0.86. Transition to oral Lasix 40 mg twice a day. Recommend elevation of lower extremites and addition of knee high CAMRYN hose Daily weights, accurate I&O, and monitor kidney function Pulmonary following. Discussion of possible bronchoscopy Patient to follow up at [facility] for repeat LENNY and Watchman procedure Further recommendations pending patient's course Nurse practitioner note has been reviewed by physician. Signing provider agrees with the documented findings, assessment, and plan of care. Objective - Vital Signs Vital signs: Vital Signs Temp 98.1 F 07/18/22 08:00 Pulse 90 07/18/22 09:49 Resp 24 07/18/22 08:00 BP 143/68 07/18/22 08:00 Pulse Ox 95 07/18/22 09:29 FiO2 29 07/09/22 08:00 Intake & Output 07/17/22 07/18/22 07/18/22 18:59 06:59 18:59 Intake Total 478 Output Total 450 Balance 28 Weight 103.8 kg Intake: Oral 478 Output: Urine 450 Other: Voiding Method External Catheter External Catheter # Voids 1 - Labs CBC & Chem 7: 07/16/22 08:22 07/18/22 08:34 Labs: Abnormal Lab Results - Last 24 Hours (Table) 07/17/22 07/17/22 07/18/22 Range/Units 16:39 19:57 05:54 PT (9.0-12.0) sec INR (<1.2) Sodium (137-145) mmol/L Carbon Dioxide (22-30) mmol/L BUN (7-17) mg/dL Creatinine (0.52-1.04) mg/dL Glucose (74-99) mg/dL POC Glucose (mg/dL) 238 H 270 H 181 H (70-110) mg/dL 07/18/22 07/18/22 07/18/22 Range/Units 08:34 08:34 11:42 PT 31.7 H (9.0-12.0) sec INR 3.3 H (<1.2) Sodium 136 L (137-145) mmol/L Carbon Dioxide 36 H (22-30) mmol/L BUN 70 H (7-17) mg/dL Creatinine 1.22 H (0.52-1.04) mg/dL Glucose 169 H (74-99) mg/dL POC Glucose (mg/dL) 167 H (70-110) mg/dL
--- NOTE | 2022-07-18 13:46 | P.PN ---
Subjective Progress Note Date: 07/18/22 I'm seeing this patient in new consultation today 07/09/2022 for progressive shortness of breath starting yesterday. This is a 77-year-old white female with a significant medical history for congestive heart failure, moderate persistent asthma, atrial fibrillation, left atrial appendage thrombus, diabetes mellitus type 2, hypertension, hypothyroidism, nonalcoholic cirrhosis of the liver, brain bleed, mild obstructive sleep apnea, remote history of smoking 36 years ago. Patient presented yesterday for difficulty breathing that started on Saturday. Patient reports shortness breath especially when exerting herself or lying flat, wheezing, fluid retention in her lower extremities, weight gain of about 3 pounds, and heart palpitations. She also reports some upper respiratory tract infection symptoms such as runny nose, cough with brown sputum production, and chills. She denies any subjective fevers or chest pain. Patient does follow with Dr. Gupta in the office for management of her moderate persistent asthma and mild obstructive sleep apnea. Patient patient states that she takes alb uterol and Symbicort on an outpatient basis. She also follows with a planimeter operator from [place], and has a planned LENNY and watchman procedure this Saturday. Patient is currently resting in bed, on AIRVO 35 L and 30% high flow cannula, in no acute distress. Chest x-ray on arrival showed mild cardiomegaly with mild diffuse interstitial opacities. No obvious focal consolidation. NT proBNP was mildly elevated at 1700. CBC on arrival shows a non-elevated WBC count of 3.9, hemoglobin 12, hematocrit 37, platelets 145,000. Patient's INR on arrival was sub-therapeutic at 1.6. Patient does take Coumadin on outpatient basis. Patient has reported some minimal rectal bleeding on and Saturday of this previous week. No bleeding since reported. BMP shows a sodium 137, potassium 4.2, chloride 104, serum CO2 31, BUN 23, creatinine 0.86, glucose 113. Lactic acid 1.5. LFTs mildly elevated. Negative for influenza, RSV, COVID-19. Pro-calcitonin levels pending. Patient is currently receiving bronchodilators and IV Solu-Medrol. She is also receiving empiric antibiotics for community associated pneumonia. Remains afebrile. Vital signs are stable. Progress note dated 07/10/2022. 7-year-old patient seen for shortness of breath, in room 374, secondary to asthma exacerbation, and diastolic CHF. Currently, the patient's on 3 L of oxygen. She's not receiving any IV fluids. Clinically, she feels better. White count 16.5, hemoglobin 12.8, hematocrit 40, and platelet count is normal. PTT is 22 with an INR of 2.2. Sodium, potassium, chloride, CO2, and anion gap, are all normal. BUN is 30 with a creatinine of 1.14. Chest x-ray shows a pattern of improving volume status. Progress note dated 07/11/2022. 77-year-old female seen today in room 374. The patient was admitted with a diagnosis of asthma exacerbation, and diastolic CHF. The patient was to have a cardiac procedure done on Saturday, and an outside hospital. The patient should not have that done at this time. She remains on 2 L of oxygen. No IV fluids. Her daughter is in the room with her. The patient's only feeling marginally better. I did mention to the planimeter operator here, at her procedure should be canc eled. White count 10.5, hemoglobin 12.5, hematocrit 39.5, with a normal platelet count. PT 25.6 with an INR 2.6. Sodium 136, potassium 4.2, chlorides 100, CO2 31, BUN 38, creatinine 1.10. Progress note dated 07/12/2022. 77-year-old patient seen in room 374. The patient states that she had a bad night last night, apparently developing atrial fibrillation. She is also quite bronchospastic and wheezy. Currently, she is on 2 L of oxygen. She's not receiving any IV fluids. Saturations are 97%. She was receiving a breathing treatment today, when we saw her in the room. No new labs today to report. Progress note dated 07/13/2022. 77-year-old female seen in room 374. The patient complains of being short of breath, and quite bronchospastic. She feels like she can't cough up phlegm. Currently, she remains on 2 L of oxygen. She's not receiving any IV fluids. She remains on corticosteroids, inhaled corticosteroids, as well as albuterol sulfate and ipratropium bromide. She apparently cannot tolerate long-acting beta agonist, which is why she's not receiving them. PTT 26.9, INR 2.8. Sodium 137, potassium 4.6, chlorides 100, CO2 36, BUN 44, and creatinine 1.10. Glucose 229. Calcium is 8.2. Progress note dated 07/14/2022. 77-year-old female seen again in room 374. The patient complains of tightness in her chest, shortness of breath, and bronchospasm. She's having a hard time coughing up any phlegm. She's currently on 2 L. She certainly no worse. She's not receiving any IV fluids. No new labs today other than a PT of 26.9 and an INR of 2.8. Glucose 252. Progress note dated 07/15/2022. 77-year-old female seen today in room 374. Today she sitting up in the chair. Currently, she is on 2 L of oxygen. She's not receiving IV fluids. She does feel a bit better today. She still has shortness of breath, chest tightness, and cough, with bronchospasm. Labs today include a white count 9.3, hemoglobin 14.2, hematocrit 43.8, and a platelet count of 127,000. PTT is 27.1, with an INR of 2.8. Sodium 137, potassium 5.1, chlorides 97, CO2 35, BUN 52, and cr eatinine 1.14. Progress note dated 07/16/2022. 77-year-old female seen along with her daughter in room 374. The patient remains on 2 L of oxygen. She's feeling better and breathing better. She ce rtainly much less bronchospastic. She denies any chest pain or chest discomfort. Laboratory data includes a white count 11.1, hemoglobin 13.8, hematocrit 43, and a platelet count of 112,000. PTT 30.6, INR 3.1. Sodium 136, potassium 5.1, chlorides 98, CO2 33, BUN 56, creatinine 1.12. Glucose 241. Calcium 8.5. On today's evaluation of 07/17/2022, the patient is still complaining of shortness of breath. On examination he remains bronchospastic and wheezy. She has been hospital for more than a week being treated for an acute COPD exacerbation tracheobronchitis. Chest x-ray was done at time of admission showed no evidence of any acute pneumonia. He is on a combination of bronchodilators and she is also on IV Medrol 60 mg every 6 hours. She has preserved LV function with an EF of around 55-60%. She has nonobstructive coronary artery disease. She has paroxysmal A. fib and the patient is currently on anticoagulation with a therapeutic PT/INR. She has diabetes mellitus type 2, hypertension hyperlipidemia, she also had a INR of 3.1. BUN is 61 with a creatinine of 1.2. The pro-calcitonin level was at 0.09. Her viral serology came back all negative. She is currently on oxygen at 2 L/m nasal cannula with a pulse ox of 95%. On today's evaluation of 07/18/2022, the patient is slightly improved. She still bronchospastic and wheezy although less. She has increased edema lower extremities pH is also complaining of generalized fatigue and weakness. BUN is at 70 with a creatinine of 1.2. Sodium is at 136 with a potassium level IV.8. The patient also has INR of 3.3. The patient is currently on warfarin. She is on bronchodilators. She is also taking Lasix 40 mg by mouth twice a day. Objective - Vital Signs Vital signs: Vital Signs Temp 97.9 F 07/18/22 12:00 Pulse 80 07/18/22 12:00 Resp 20 07/18/22 12:00 BP 134/69 07/18/22 12:00 Pulse Ox 95 07/18/22 12:00 FiO2 29 07/09/22 08:00 Intake & Output 07/17/22 07/18/22 07/18/22 18:59 06:59 18:59 Intake Total 478 Output Total 450 Balance 28 Weight 103.8 kg Intake: Oral 478 Output: Urine 450 Other: Voiding Method External Catheter External Catheter # Voids 1 - Exam No acute distress, oriented 3. Currently on 2 L. Minimal conversational dyspnea. HEENT examination is grossly unremarkable. Neck supple. Full range of motion. No adenopathy thyromegaly or neck vein distention. Cardiovascular examination reveals regular rhythm rate. S1-S2 normal. No S3 or S4. No discernible murmur noted. Heart rate 86 bpm. Heart sounds are distant. Lungs reveal scattered coarse bilateral expiratory rhonchi. Expiratory wheezes are noted. Breath sounds are equal bilaterally. No crackles. Breath sounds are diminished throughout. Saturations are 95 % on 2 L. Abdomen soft bowel sounds are heard. No masses or tenderness. Extremities are intact. No cyanosis clubbing or edema. Skin is without rash or lesion. Neurologic examination is brief but nonfocal. - Labs CBC & Chem 7: 07/16/22 08:22 07/18/22 08:34 Labs: Abnormal Lab Results - Last 24 Hours (Table) 07/17/22 07/17/22 07/18/22 Range/Units 16:39 19:57 05:54 PT (9.0-12.0) sec INR (<1.2) Sodium (137-145) mmol/L Carbon Dioxide (22-30) mmol/L BUN (7-17) mg/dL Creatinine (0.52-1.04) mg/dL Glucose (74-99) mg/dL POC Glucose (mg/dL) 238 H 270 H 181 H (70-110) mg/dL 07/18/22 07/18/22 07/18/22 Range/Units 08:34 08:34 11:42 PT 31.7 H (9.0-12.0) sec INR 3.3 H (<1.2) Sodium 136 L (137-145) mmol/L Carbon Dioxide 36 H (22-30) mmol/L BUN 70 H (7-17) mg/dL Creatinine 1.22 H (0.52-1.04) mg/dL Glucose 169 H (74-99) mg/dL POC Glucose (mg/dL) 167 H (70-110) mg/dL Assessment and Plan Plan: Acute exacerbation of asthma, as well as mild exacerbation of diastolic CHF, leading to hypoxemic respiratory failure. The pro-calcitonin level was normal. The chest x-ray initially was within normal limits and the patient is on a combination of bronchodilators and steroids. The vital serology was also negative. Improvement is ongoing but it's quite slow. Echocardiogram shows a preserved LV function History of paroxysmal atrial fibrillation. The INR is therapeutic at this point in time Increased lower oximetry edema History of subdural hematoma, January 2022. History of rectal bleeding. Type 2 diabetes mellitus. Essential hypertension. Morbid obesity. Nonalcoholic steatohepatitis. Gastroesophageal reflux disease, without esophagitis, status post Ambrose fundoplication. History of hypothyroidism. Mild obstructive sleep apnea syndrome. Previous history of tobacco use. Right ovarian mass. Plan Repeat chest x-ray from yesterday showed no acute abnormalities Continue bronchodilators and steroids and the patient is on DuoNeb neb b lotchiness on the clock in addition to Perforomist and Pulmicort updrafts twice a day Discontinue the IV Solu-Medrol and put the patient on prednisone burst taper Change the patient's IV Lasix 40 mg every 12 hours over the next 24 hours Monitor lower extremity edema fluid balance She will likely need an ECF
[2022-07-18] MEDS: FUROSEMIDE 10 MG/ML 4 ML VIAL IV SCH ×2 (14:38→20:12)
[2022-07-18] MEDS ORDERED: FUROSEMIDE 40 MG TAB PO SCH (16:00)
[2022-07-18 16:26] LABS: Glucose,Whole Blood 340 mg/dL (70-110)
[2022-07-18] MEDS ORDERED: WARFARIN 0.5 MG TAB PO ONE (18:00)
[2022-07-18 19:57] LABS: Glucose,Whole Blood 313 mg/dL (70-110)
[2022-07-18] MEDS: CITALOPRAM HYDROBROMIDE 20 MG TAB PO SCH (20:12)
--- NOTE | 2022-07-18 20:47 | P.PN ---
Subjective Progress Note Date: 07/18/22 Patient is a 77-year-old female with a past medical history of COPD presents to ER with complaints of worsening shortness of breath for the past 7 days and weight gain about 3 pounds. Initial laboratory test showed WBC 3.9 hemoglobin 12.0 and platelets 145 BUN 23 and creatinine 0.86 AST 65 ALT 34 alk phos 186 and proBNP 1700 and procalcitonin level was 0.13. Albumin 2.5. Urinalysis negative for infection. COVID-19, influenza A B and RSV PCR not detected. 07/09/2022 Patient is currently lying in the bed. Patient is on Airvo 35 L at 30% FiO2. Patient has been afebrile overnight. Was having cough with brown sputum production. No complaints of chest pain.No nausea vomiting abdominal pain or diarrhea. Chest x-ray showed improving volume overload or pulmonary edema. Laboratory data showed WBC 3.3 hemoglobin 12.2 and platelets 136 INR 1.7 Sodium 137 potassium 4.1 chloride 103 bicarb is 30 BUN 25 and creatinine 0.98 and blood sugar is 197. Calcium 7.9. 07/10/2022 Patient is seen and evaluated in follow-up today with pulmonary and cardiology following. Patient continues to have shortness of breath and maintained on oxygen with pulmonary following and patient is receiving IV ceftriaxone and has finished a Zithromax. Patient is on Coumadin with pharmacy to dose and also being maintained on IV Lasix with dose being adjusted to 40 mg twice daily and will continue. Patient does continue on IV steroids and would recommend monitoring Accu-Cheks before meals and at bedtime and use sliding scale as needed. Patient does not normally wear oxygen in the outpatient setting and recommended wean FiO2 as tolerated and will evaluate for possible home O2 requirements. Patient is currently afebrile, denies chest pain or palpitations. Patient is reporting that she is eating with occasional nausea with no vomiting noted. Encouraged increase activity as tolerated. 07/11/2022 Patient is seen and evaluated in follow-up today currently maintained on IV Lasix and kidney function stable and diuresing well with cardiology and pulmonary following closely. Patient also maintained on IV steroids along with breathing treatments and 3 L of oxygen via nasal cannula. Patient continues to report a junky cough although reports is having some improvements in her shortness of breath. Patient reports not a significant improvement. Patient is afebrile maintained on antibiotics and will continue for now. Patient denies worsening shortness of breath, chest pains, or palpitations. No reports of nausea or vomiting and patient is tolerating diet. Encouraged increased activity as tolerated. Recommend follow-up labs to monitor electrolytes and kidney functions closely. 07/12/2022 Patient is seen and evaluated in follow-up today and is maintained on telemetry monitoring with pulmonary and cardiology following. Patient reports there was an episode of atrial for ablation with RVR and cardiology was notified and given an extra dose of metoprolol and is currently sinus rhythm. Patient continues to report shortness of breath with wheezing and crackles noted. Patient is continued on IV steroids along with breathing treatments and pulmonary is following closely. Patient reports she feels quite frustrated with not getting better and wants to go home. Her follow-up LENNY for possible watchman device has been rescheduled. Patient is currently afebrile with no reports of chest pain or palpitations. No reports of nausea vomiting and patient tolerating diet. Encouraged oral intake. 07/13/2022 Patient is seen in follow-up this morning continues to be short of breath with wheezing and bronchospastic. Patient is maintained on inhalers along with breathing treatments, IV steroids, IV ceftriaxone along with IV Lasix with pulmonary and cardiology following closely. Patient is continued on 3 L via nasal cannula and reports does not wear any oxygen at home. Patient appears winded during conversation and takes multiple breaks to catch her breath. Will follow up on chest x-ray in the a.m. Patient is currently afebrile with no reports of chest pain or palpitations. Patient continues with a cough with difficulty expectorating any phlegm. No reports of nausea vomiting and patient is tolerating diet encourage small frequent meals. Patient is weak and with prolonged hospitalization would recommend possible physical therapy evaluation. Patient's blood sugars being monitored with Accu-Cheks and has sliding scale and will continue with current regimen. 07/14/2022 Patient is currently resting in the bed. Awake alert and oriented x3. Currently requiring 2 L oxygen via nasal cannula. Still complains of shortness of breath and tightness. Bilateral wheezing and scattered rhonchi especially in the basilar on physical exam. No complaints of chest pain. No nausea vomiting abdominal pain or diarrhea. Tolerating oral diet. Was also complaining of constipation. Patient is being continued on IV Solu-Medrol 60 mg every 6 hourly and is also on Lasix 40 mg every 12 IV. Pulmonary and cardiology is on board. Most recent Laboratory data reviewed. 07/15/2022 Patient states that she feels better today. Breathing status is improving. Requiring oxygen at 2 L via nasal cannula. No complaints of chest pain. Less bronchospastic today. Otherwise patient is being continued on Solu-Medrol 60 mg every 6 hourly patient is also on Lasix 40 mg every 12. Laboratory showed WBC 9.3 hemoglobin 14.1 platelets 127 INR 2.8 BUN 15 creatinine 1.14 and blood sugar is 235. Patient will be started on insulin regimen. 07/16/2022 Patient is seen and evaluated and follow-up this morning with cardiology and pulmonary following. Patient is maintained on IV steroids along with breathing treatments and weaning as tolerated down to 2 L via nasal cannula. Patient also maintained on IV Lasix and continues to have lower extremity edema and continued shortness of breath. Kidney functions are being monitored and creatinine trending down. Patient is maintained on Coumadin with pharmacy to dose and INR was 3.0 today. Recommend monitoring INR levels closely. Patient is requiring assistance with getting up and will add PT/OT therapy for evaluation. Patient reports she will be going home once stabilized and discharged. Patient is currently afebrile with no reports of chest pain or palpitations. Patient continues to report shortness of breath although no worse. Patient has had prolonged hospitalization extremely slow to improve. Will follow-up labs in the a.m. 07/17/2022 Patient is seen and evaluated in follow-up today with pulmonary and cardiology following. Patient has been switched to oral Lasix elbow continues to have significant lower extremity edema with shortness of breath and overload. We'll transition Lasix back to IV at 60 mg twice a day and follow-up with repeat labs. Current creatinine is 1.2. Patient reports is making urine but unsure how much in intake and output is not being documented strictly. Patient did have some increased abdominal distention and reports not having much of bowel movements will order abdominal x-ray and follow-up chest x-ray from today is pending. Patient is currently afebrile and denies chest pain or palpitations. No reports of nausea or vomiting and patient is tolerating diet. 07/18/2022 Patient is seen in follow-up this morning continues to report shortness of breath and maintained on 2 L via nasal cannula. Cardiology following recommending transitioning back to oral Lasix although pulmonary has continued with IV Lasix for continued lower extremity edema. Will add compression stockings as well. Patient does continue with weakness and has had prolonged hospitalization will consult PT/OT therapy and discuss again further with case management along with patient about possible ECF. Patient reports she will be returning home although given her significant comorbidities and prolonged ho spitalization patient may benefit from ECF for continued strength and mobility prior to returning home. Patient is currently afebrile denies chest pain or palpitations. Patient is tolerating oral intake and was continued on IV steroids which are being transitioned to oral prednisone. Review of systems: Constitutional: reports of fatigue today, no fever, or chills Cardiovascular: No reports of chest pain or palpitations Respiratory: Reports of continued shortness of breath and cough which she feels is slowly improving GI: No reports of nausea, vomiting, or diarrhea : No reports of dysuria or retention Neurovascular: reports of generalized weakness All medications have been reviewed Active Medications Acetaminophen (Acetaminophen Tab 325 Mg Tab) 650 mg PO Q6H PRN PRN Reason: Mild Pain or Fever > 100.5 Last Admin: 07/17/22 12:50 Dose: 325 mg Albuterol/Ipratropium (Ipratropium-Albuterol 3 Ml Neb) 3 ml INHALATION RT-QID [facility] Last Admin: 07/18/22 20:36 Dose: 3 ml Ascorbic Acid (Ascorbic Acid 500 Mg Tab) 1,000 mg PO DAILY [facility] Last Admin: 07/18/22 08:21 Dose: 1,000 mg Budesonide (Budesonide 1 Mg/2 Ml Nebu) 1 mg INHALATION RT-BID [facility] Last Admin: 07/18/22 20:36 Dose: 1 mg Cholecalciferol (Cholecalciferol 25 Mcg (1000 Iu) Tablet) 25 mcg PO DAILY [facility] Last Admin: 07/18/22 08:22 Dose: 25 mcg Citalopram Hydrobromide (Citalopram Hydrobromide 20 Mg Tab) 20 mg PO HS [facility] Last Admin: 07/18/22 20:12 Dose: 20 mg Dextrose/Water (Dextrose 50% Syringe 50 Ml) 25 ml IVP PER PROTOCOL PRN; Protocol PRN Reason: Hypoglycemia Dextrose/Water (Dextrose 50% Syringe 50 Ml) 50 ml IVP PER PROTOCOL PRN; Protocol PRN Reason: Hypoglycemia Ferrous Sulfate (Ferrous Sulfate 325 Mg Tab) 325 mg PO Q48H [facility] Last Admin: 07/18/22 08:22 Dose: 325 mg Furosemide (Furosemide 10 Mg/Ml 4 Ml Vial) 40 mg IV Q12HR [facility] Last Admin: 07/18/22 20:12 Dose: 40 mg Insulin Aspart (Insulin Aspart (Novolog) 100 Unit/Ml Vial) 0 unit SQ ACHS [facility]; Protocol Last Admin: 07/18/22 20:13 Dose: 4 unit Insulin Detemir (Insulin Detemir (Levemir) 100 Unit/Ml Syr) 10 unit SQ BID@0700,2100 [facility] Last Admin: 07/18/22 20:13 Dose: 10 unit Levothyroxine Sodium (Levothyroxine 50 Mcg Tab) 50 mcg PO DAILY@0630 [facility] Last Admin: 07/18/22 06:12 Dose: 50 mcg Losartan Potassium (Losartan 25 Mg Tab) 25 mg PO DAILY [facility] Last Admin: 07/18/22 08:22 Dose: 25 mg Magnesium Oxide (Magnesium Oxide 400 Mg Tab) 400 mg PO DAILY [facility] Last Admin: 07/18/22 08:21 Dose: 400 mg Metoprolol Tartrate (Metoprolol Tartrate 50 Mg Tab) 50 mg PO BID [facility] Last Admin: 07/18/22 20:13 Dose: 50 mg Miscellaneous Information (Warfarin Per Pharmacy) 0 each MISCELLANE DIRECTED PRN PRN Reason: PHARMACY DOSING WARFARIN Naloxone HCl (Naloxone 0.4 Mg/Ml 1 Ml Vial) 0.2 mg IVP Q2M PRN PRN Reason: Opioid Reversal Pantoprazole Sodium (Pantoprazole 40 Mg Tablet) 40 mg PO AC-BRKFST [facility] Last Admin: 07/18/22 06:13 Dose: 40 mg Pramipexole Dihydrochloride (Pramipexole 0.125 Mg Tab) 0.125 mg PO BID [facility] Last Admin: 07/18/22 20:13 Dose: 0.125 mg Prednisone (Prednisone 20 Mg Tab) 40 mg PO DAILY [facility] Senna (Sennosides 8.6 Mg Tab) 8.6 mg PO DAILY PRN PRN Reason: Constipation Last Admin: 07/15/22 21:02 Dose: 8.6 mg Spironolactone (Spironolactone 25 Mg Tab) 25 mg PO DAILY [facility] Last Admin: 07/18/22 08:22 Dose: 25 mg PHYSICAL EXAMINATION: Patient is sitting up in the bed asleep although easily arousable, no acute distress, alert and oriented. Morbidly obese. Currently continued on 2 L HEENT: Normocephalic. Neck is supple. Pupils reactive. Nostrils clear. Oral cavity is moist. Neck reveals no JVD, carotid bruits, or thyromegaly. CHEST EXAMINATION: Trachea is central. Symmetrical expansion. Bilateral diffuse wheezing and rhonchi. Bibasilar diminished sounds. Nonlabored breathing. CARDIAC: S1, S2 are muffled, irregular ABDOMEN: Soft. Bowel sounds present. Nontender. No organomegaly. No abdominal bruits. Extremities: 2+ bilateral pedal edema. No clubbing or cyanosis Neurologically awake, alert, oriented. Able to move all extremities. No gross focal deficits noted. Diffusely weak Skin: No rash or skin lesions. Psychiatric: Cooperative. Non-suicidal Musculoskeletal: No joint swelling or deformity. Normal range of motion. Assessment: Worsening shortness of breath which is multifactorial, due to acute CHF exacerbation as well as moderate persistent asthma Moderate persistent asthma with exacerbation Acute CHF with diastolic dysfunction Acute tracheobronchitis and possible pneumonia, pneumonia ruled out Obstructive sleep apnea not on CPAP at home Paroxysmal atrial fibrillation on anticoagulation with Coumadin. Status post episode of atrial fibrillation with RVR on 07/12/2022, currently rate controlled Left atrial thrombus and currently being anticoagulated with warfarin. Patient is supposed to get LENNY, Watchman procedure as an outpatient at [facility] although being rescheduled. Hypertension Morbid obesity with BMI of 40.7 Diabetes type 2 History of nonalcoholic hepatic steatosis History of GERD status post Ambrose fundoplication Hypothyroidism Right ovarian mass currently under investigation as an outpatient Prior history of smoking quit 36 years ago History of subdural hematoma in January 2022 Coumadin dosing GI prophylaxis No code Plan: Patient is currently on 2 L nasal cannula oxygen. Weaning FiO2 as tolerated with pulmonary and cardiology following. Patient does not normally wear oxygen at home and will require 2 L via nasal cannula on discharge to manage COPD Continued on IV diuresis with Lasix 40 mg every 12 hours and continues to have lower extremity edema and overload, will follow-up with repeat LAD and also recommended compression stockings Patient was maintained on IV steroids and being transitioned oral prednisone taper with pulmonary following Recommend continue monitoring Accu-Cheks before meals and at bedtime and use sliding scale along with long-acting Coumadin monitoring with pharmacy to dose, INR is 3.3 today, recommend holding Coumadin today Patient was supposed to follow-up with cardiology as an outpatient for LENNY with possible Watchman procedure at [facility] on 07/13 and was canceled due to being hospitalized. Will need to be rescheduled once respiratory status is more stable Encouraged increased activity as tolerated and encouraged oral intake. Patient has had prolonged hospitalization with weakness. Patient plans on returning home with family once stabilized and discharged although given her prolonged hospitalization and significant weakness patient may benefit from ECF and will discuss further with case management as well as patient about possible rehab prior to returning home Will follow-up with labs and discuss further with pulmonary about discharge planning CODE STATUS is DNR/DNI. The impression and plan of care has been dictated by Melissa Diaz, Nurse Practitioner as directed. Dr. Meri MD I have performed a history and examination and MDM of this patient, discussed the same with the dictator, and agree with the dictator's assessment and plan as written ,documented as a scribe. Based on total visit time, I have performed more than 50% of the visit. Objective - Vital Signs Vital signs: Vital Signs Temp 98.1 F 07/18/22 08:00 Pulse 77 07/18/22 08:00 Resp 24 07/18/22 08:00 BP 143/68 07/18/22 08:00 Pulse Ox 95 07/18/22 08:00 FiO2 29 07/09/22 08:00 Intake & Output 07/17/22 07/18/22 07/18/22 18:59 06:59 18:59 Intake Total 478 Output Total 450 Balance 28 Weight 103.8 kg Intake: Oral 478 Output: Urine 450 Other: Voiding Method External Catheter External Catheter # Voids 1 - Labs CBC & Chem 7: 07/16/22 08:22 07/18/22 08:34 Labs: Abnormal Lab Results - Last 24 Hours (Table) 07/17/22 07/17/22 07/17/22 Range/Units 05:54 11:43 16:39 PT 30.0 H (9.0-12.0) sec INR 3.1 H (<1.2) POC Glucose (mg/dL) 233 H 238 H (70-110) mg/dL 07/17/22 07/18/22 Range/Units 19:57 05:54 PT (9.0-12.0) sec INR (<1.2) POC Glucose (mg/dL) 270 H 181 H (70-110) mg/dL
[2022-07-19 06:04] LABS: Glucose,Whole Blood 222 mg/dL (70-110)
[2022-07-19] MEDS: INSULIN ASPART (NovoLOG) 100 UNIT/ML VIAL SQ SCH ×4 (06:13→20:10)
[2022-07-19] MEDS: LEVOTHYROXINE 50 MCG TAB PO SCH (06:13)
[2022-07-19] MEDS: PANTOPRAZOLE 40 MG TABLET PO SCH (06:13)
[2022-07-19] MEDS: INSULIN DETEMIR (LEVEMIR) 100 UNIT/ML SYR SQ SCH ×2 (06:14→20:10)
[2022-07-19] MEDS: IPRATROPIUM-ALBUTEROL 3 ML NEB INHALATION SCH ×4 (07:48→20:38)
[2022-07-19] MEDS: BUDESONIDE 1 MG/2 ML NEBU INHALATION SCH ×2 (07:49→20:39)
[2022-07-19 10:01] LABS: INR 2.7 (<1.2); Prothrombin Time 26.5 sec (9.0-12.0)
[2022-07-19 10:07] LABS: Calcium 8.3 mg/dL (8.4-10.2); Magnesium 2.4 mg/dL (1.6-2.3)
[2022-07-19] MEDS: LOSARTAN 25 MG TAB PO SCH (11:14)
[2022-07-19] MEDS: METOPROLOL TARTRATE 50 MG TAB PO SCH ×2 (11:14→20:10)
[2022-07-19] MEDS: CHOLECALCIFEROL 25 MCG (1000 IU) TABLET PO SCH (11:14)
[2022-07-19] MEDS: MAGNESIUM OXIDE 400 MG TAB PO SCH (11:14)
[2022-07-19] MEDS: ASCORBIC ACID 500 MG TAB PO SCH (11:14)
[2022-07-19] MEDS: PRAMIPEXOLE 0.125 MG TAB PO SCH ×2 (11:15→20:10)
[2022-07-19] MEDS: predniSONE 20 MG TAB PO SCH (11:15)
[2022-07-19] MEDS: SPIRONOLACTONE 25 MG TAB PO SCH (11:15)
[2022-07-19] MEDS: FUROSEMIDE 10 MG/ML 4 ML VIAL IV SCH ×2 (11:20→20:10)
[2022-07-19 11:44] LABS: Glucose,Whole Blood 315 mg/dL (70-110)
--- NOTE | 2022-07-19 12:27 | P.NPCON ---
History of Present Illness - Reason for Consult acute renal failure - History of Present Illness Reason for consultation: Acute kidney injury History of present illness: Patient is a 77-year-old female seen in a consultation for acute kidney injury. Patient's creatinine on admission on 07/08/2022 with 0.6 and is up to 1.49 today. Patient presented to the hospital due to shortness of breath and lower e xtremity edema. Patient has history of diastolic CHF and mild to moderate aortic and tricuspid regurgitation. She also has history of COPD. Patient's currently on 2 L nasal cannula. Patient admits to significant edema in the lower extremity disease. Patient has received IV Lasix this admission. She denies hematuria. No vomiting or diarrhea. No chest pain or shortness of breath at this time. She does of long-standing history of diabetes. Denies use of nonsteroidals. Denies history of coronary artery disease. She also admits to history of liver cirrhosis due to fatty liver. UA completely benign this admission. Vital signs are stable. General: No acute distress. HEENT: Head exam is unremarkable. On nasal cannula. LUNGS: No audible rhonchi or wheezes. HEART: Rate and Rhythm are regular. ABDOMEN: Soft, obese. EXTREMITITES: 2+ edema. Past Medical History Past Medical History: Atrial Fibrillation, Asthma, Heart Failure, COPD, Diabetes Mellitus, GERD/Reflux, Hypertension, Liver Disease, Osteoarthritis (OA), Supraventricular Tachycardia (SVT), Thyroid Disorder Additional Past Medical History / Comment(s): SEE CARDIOLOGY HISTORY PROVIDED BY DR. ELVIRA STRICKLAND. IP @ [facility] FROM [id number] FOR PULMONARY EDEMA, CHF, CELLULITIS. INCONTINENT/USES PADS. O2 AT HOME? DYSPHAGIA FROM GERD. hx migraines. LEFT "eye stroke". Hiatal hernia. NON ALCHOLIC CIRRHOSIS, May 2022- pt had blood clot on heart was supposed to have Watchman put in at [facility], December 2021-brain bleed History of Any Multi-Drug Resistant Organisms: None Reported Past Surgical History: Breast Surgery, Cholecystectomy, Hysterectomy Additional Past Surgical History / Comment(s): Rectocele. Breast biopsies. Ambrose fundoplication. Past Anesthesia/Blood Transfusion Reactions: Postoperative Nausea & Vomiting (PONV) Smoking Status: Former smoker - Past Family History Mother Family Medical History: Cancer Additional Family Medical History / Comment(s): lung Father Family Medical History: Cancer Additional Family Medical History / Comment(s): lung Brother(s) Family Medical History: Cancer, Liver Disease Additional Family Medical History / Comment(s): colon Medications and Allergies Home Medications Medication Instructions Recorded Confirmed Type Citalopram Hydrobromide [CeleXA] 20 mg PO HS 02/28/15 07/08/22 History Albuterol Nebulized [Ventolin 2.5 mg INHALATION RT-Q6H PRN 10/22/19 07/08/22 History Nebulized] Ascorbic Acid [Vitamin C] 1,000 mg PO DAILY 10/22/19 07/08/22 History Lansoprazole [Prevacid] 30 mg PO DAILY 10/22/19 07/08/22 History Levothyroxine Sodium [Euthyrox] 50 mcg PO DAILY 10/22/19 07/08/22 History Pramipexole [Mirapex] 0.125 mg PO BID 10/22/19 07/08/22 History Spironolactone [Aldactone] 25 mg PO BID 10/22/19 07/08/22 History atenoloL 100 mg PO DAILY PRN 12/04/19 07/08/22 History Acetaminophen Tab [Tylenol] 650 mg PO Q6H PRN 06/18/22 07/08/22 History Albuterol Inhaler [Ventolin Hfa 2 puff INHALATION RT-Q6H PRN 06/18/22 07/08/22 History Inhaler] Cholecalciferol [Vitamin D3 (25 25 mcg PO DAILY 06/18/22 07/08/22 History Mcg = 1000 Iu)] Ferrous Sulfate [Iron (65 MG 325 mg PO Q48H 06/18/22 07/08/22 History Elemental)] Magnesium 250 mg PO DAILY 06/18/22 07/08/22 History Metoprolol Tartrate [Lopressor] 50 mg PO BID 06/18/22 07/08/22 History Warfarin [Coumadin] 0.5 mg PO [id number] 06/18/22 07/08/22 History Furosemide [Lasix] 40 mg PO BID@0900,1600 07/08/22 07/08/22 History Warfarin [Coumadin] 1 mg PO SA 07/08/22 07/08/22 History Allergies Allergy/AdvReac Type Severity Reaction Status Date / Time adhesive tape Allergy blisters Verified 07/08/22 13:39 morphine Allergy Vomiting Verified 07/08/22 13:39 Penicillins Allergy numbness Verified 07/08/22 13:39 of lips, hands , feet prochlorperazine Allergy Unknown Verified 07/08/22 13:39 [From Compazine] prochlorperazine edisylate Allergy Unknown Verified 07/08/22 13:39 [From Compazine] prochlorperazine maleate Allergy Unknown Verified 07/08/22 13:39 [From Compazine] esomeprazole magnesium AdvReac Severe BURNING Verified 07/08/22 13:39 [From Nexium] PAIN fluticasone AdvReac Unknown Verified 07/08/22 13:39 [From Advair Diskus] salmeterol AdvReac Unknown Verified 07/08/22 13:39 [From Advair Diskus] Physical Exam Vitals: Vital Signs Temp Pulse Pulse Resp BP Pulse Ox 07/19/22 11:40 97.5 F L 79 20 130/64 94 L 07/19/22 11:31 80 07/19/22 11:17 79 07/19/22 10:52 70 20 07/19/22 08:04 80 07/19/22 07:49 78 94 L 07/19/22 07:35 97.8 F 20 137/71 94 L 07/19/22 04:00 97.8 F 77 24 149/74 95 07/19/22 00:00 97.8 F 78 16 136/69 94 L 07/18/22 20:50 86 07/18/22 20:37 84 07/18/22 20:00 98.2 F 85 16 145/69 93 L 07/18/22 16:50 97.9 F 85 24 128/71 94 L 07/18/22 16:03 88 07/18/22 15:52 80 Intake and Output 07/18/22 07/19/22 07/19/22 22:59 06:59 14:59 Intake Total 960 540 Balance 960 540 Intake: Oral 960 540 Other: Voiding Method External Catheter External Catheter # Voids 1 1 Results - Lab Results Most recent lab results Calcium 8.3 mg/dL (8.4-10.2) L 07/19/22 07:46 Magnesium 2.4 mg/dL (1.6-2.3) H 07/19/22 07:46 07/16/22 08:22 07/19/22 07:46 Assessment and Plan Plan: Assessment: 1. Acute kidney injury secondary to vasomotor nephropathy secondary to cardiorenal syndrome. Creatinine 1.49 today. UA benign. 2. Acute on chronic diastolic CHF with mild to moderate tricuspid and aortic regurgitation. 3. Volume overload. 4. History of liver cirrhosis. 5. History of COPD. 6. Diabetes mellitus. Plan: Maintain IV Lasix. Add metolazone 5 mg once daily. 1500 mL fluid restriction. Low-salt diet. Check abdominal ultrasound. Avoid nephrotoxins. Continue to monitor renal function and urine output. Thank you for the consultation. I will continue to follow the patient did during her hospital stay.
[2022-07-19] MEDS: metOLazone 5 MG TAB PO SCH (13:06)
--- NOTE | 2022-07-19 13:28 | P.PN ---
Subjective Progress Note Date: 07/19/22 HISTORY OF PRESENT ILLNESS: This is a 77 year old female patient with known history of intracranial bleed while on anticoagulation for paroxysmal atrial fibrillation, history of CVA as well with good recovery, previous MM a embolization, type 2 diabetes, hypertension, hyperlipidemia, noncritical coronary artery disease on catheterization November. She is a patient of Dr. ELVIRA Patton and follows with Dr. Lindsey and scheduled for watchman procedure on July 13. Patient presented with increasing shortness of breath appears to be COPD exacerbation with bronchial asthma. Patient complains of shortness of breath with exertion continues to wheezing which is worsened from yesterday. She has followed by pulmonary medicine as well. INR today is 2.2 and we will ask for Coumadin to be held tonight. Repeat blood work reveals WBC 16.5, hemoglobin 12.8, BUN 30 creatinine 1.14. 07/11 Patient states that she feels her breathing is a little bit better from yesterday but still having some wheezing. She is continued on IV steroids, inhaled steroids and nebulizer treatments as well as antibiotics. Patient has been resumed on her home cardiac medications. INR today is 2.6. She did not receive Coumadin last evening. Pharmacy is now dosing. 07/12 Patient is seen and reevaluated and continues to have wheezing. Patient went into A. fib with RVR in the evening and Dr. Connor was contacted and ordered 1 dose of metoprolol tartrate oral at 50 mg. Patient then converted early this morning and is in a sinus rhythm. Blood pressure 150/68. INR today is 2.7. Potassium 4.5, BUN 42 and creatinine 1.19. 07/13 Patient continues to have wheezing and shortness of breath despite current treatment managed by pulmonary medicine. Her INR today is 2.8. Advise no Coumadin for tonight and recheck INR tomorrow. BUN 44 creatinine 1.1 and potassium 4.6. 07/14 She reports that her breathing is not good, feels the same as yesterday. She is on 2L NC O2. Breathing does improve some with breathing treatments. Denies any chest pain. [place] some palpitations overnight. NSR. INR 2.8, creat 1.1. 07/15 She is out of bed in chair, breathing is unchanged. Denies chest pain. Cr eatinine 1.14, K+ 5.1, INR 2.8. BP has been 150-160's. 07/16/2022 Patient examined this morning at the bedside. Patient denies chest pain or pressure. She reports continued shortness of breath. She continues to have lower extremity edema. She remains on IV Lasix 40 mg every 12 hours. blood pressure stable at 135/63. Creatinine 1.12 07/17/2022 Patient examined this morning at the bedside. Patient denies chest pain or pressure. She continues to report shortness of breath. She continues to have lower extremity edema, although slowly improving. She remains on IV Lasix. Creatinine today 1.20. BUN has increased to 61. Echocardiogram completed revealing ejection fraction 55-60%, moderate mitral regurgitation, [id number] aortic regurgitation, mild to moderate tricuspid regurgitation. 07/18/2022 Patient examined this morning at the bedside. Patient reports improvement in her shortness of breath. She denies any chest pain or pressure. Patient was transitioned to oral Lasix yesterday, however in the afternoon she was placed back on IV Lasix per primary medicine. Patient with increasing BUN of 70 today. Creatinine 1.22. Patient's INR 3.3. 07/19/2022 Patient examined this morning. She is sitting in the chair. She denies chest pain or pressure. She continues to report shortness of breath. She continues to have lower extremity edema. She remains on IV Lasix. Patient states she was unable to tolerate CAMRYN hose been applied to her legs yesterday. However they are elevated this morning on pillows. INR 2.7. BUN 81. Creatinine 1.49. PHYSICAL EXAM: VITAL SIGNS: Reviewed. GENERAL: Well-developed in no acute distress. NECK: Supple. No JVD or thyromegaly LUNGS: Respirations even and unlabored. Lungs with wheezing noted throughout. HEART: Regular rate and rhythm. S1 and S2 heard. + systolic murmur. EXTREMITIES: Normal range of motion. No clubbing or cyanosis. Peripheral pulses intact. 2+ bilateral lower extremity edema ASSESSMENT: Acute COPD exacerbation Tracheobronchitis Bronchial asthma Acute on chronic congestive heart failure with preserved ejection fraction, EF 55-60% Nonobstructive coronary artery disease Left atrial thrombus with plan for watchman procedure-to be rescheduled Paroxysmal atrial fibrillation History of intracranial bleed History of CVA Hypertension Hyperlipidemia Diabetes mellitus type 2 Valvular heart disease Acute kidney injury, secondary to diuresis PLAN: Continue current cardiac medications Pharmacy to dose Coumadin. Continue to monitor INR Patient unable to tolerate CAMRYN hose Continue IV lasix. Defer dosing to nephrology Daily weights, accurate I&O, and monitor kidney function Pulmonary following. Patient to follow up at [facility] for repeat LENNY and Watchman procedure Further recommendations pending patient's course Nurse practitioner note has been reviewed by physician. Signing provider agrees with the documented findings, assessment, and plan of care. Objective - Vital Signs Vital signs: Vital Signs Temp 97.5 F L 07/19/22 11:40 Pulse 79 07/19/22 11:40 Resp 20 07/19/22 11:40 BP 130/64 07/19/22 11:40 Pulse Ox 94 L 07/19/22 11:40 FiO2 29 07/09/22 08:00 Intake & Output 07/18/22 07/19/22 07/19/22 18:59 06:59 18:59 Intake Total 600 540 540 Balance 600 540 540 Intake: Oral 600 540 540 Other: Voiding Method External Catheter # Voids 1 - Labs CBC & Chem 7: 07/16/22 08:22 07/19/22 07:46 Labs: Abnormal Lab Results - Last 24 Hours (Table) 07/18/22 07/18/22 07/19/22 Range/Units 16:25 19:56 06:03 PT (9.0-12.0) sec INR (<1.2) Sodium (137-145) mmol/L Chloride (98-107) mmol/L Carbon Dioxide (22-30) mmol/L BUN (7-17) mg/dL Creatinine (0.52-1.04) mg/dL Glucose (74-99) mg/dL POC Glucose (mg/dL) 340 H 313 H 222 H (70-110) mg/dL Calcium (8.4-10.2) mg/dL Magnesium (1.6-2.3) mg/dL Albumin (3.5-5.0) g/dL 07/19/22 07/19/22 07/19/22 Range/Units 07:46 07:46 07:46 PT 26.5 H (9.0-12.0) sec INR 2.7 H (<1.2) Sodium 136 L (137-145) mmol/L Chloride 96 L (98-107) mmol/L Carbon Dioxide 35 H (22-30) mmol/L BUN 81 H (7-17) mg/dL Creatinine 1.49 H (0.52-1.04) mg/dL Glucose 218 H (74-99) mg/dL POC Glucose (mg/dL) (70-110) mg/dL Calcium 8.3 L (8.4-10.2) mg/dL Magnesium 2.4 H (1.6-2.3) mg/dL Albumin 2.7 L (3.5-5.0) g/dL 07/19/22 Range/Units 11:43 PT (9.0-12.0) sec INR (<1.2) Sodium (137-145) mmol/L Chloride (98-107) mmol/L Carbon Dioxide (22-30) mmol/L BUN (7-17) mg/dL Creatinine (0.52-1.04) mg/dL Glucose (74-99) mg/dL POC Glucose (mg/dL) 315 H (70-110) mg/dL Calcium (8.4-10.2) mg/dL Magnesium (1.6-2.3) mg/dL Albumin (3.5-5.0) g/dL
--- NOTE | 2022-07-19 14:57 | US ---
EXAMINATION TYPE: US kidneys/renal and bladder DATE OF EXAM: 07/19/2022 COMPARISON: US 10/16/2021 CLINICAL INDICATION: Female, 77 years old with history of talha, r/o ascites; TALHA EXAM MEASUREMENTS: Right Kidney: 10.8 x 5.4 x 4.3 cm Left Kidney: 11.1 x 5.5 x 5.2 cm *Exam is very limited due to patient body habitus and great amount of overlying bowel gas. Right Kidney: Hypoechoic area seen upper pole- ?questionable dilated upper collecting system: 3.0 x 2 .2 x 1.1 cm. Limited evaluation of lower pole due to gas. Left Kidney: No hydronephrosis or masses seen Bladder: Not distended, not seen. Bilateral Jets seen: No -Free fluid seen within RUQ and within abdomen/lower pelvis near bladder area. IMPRESSION: 1. Very limited examination due to patient's body habitus and overlying bowel gas. Questionable dila kisha upper collecting system on the right. No hydronephrosis involving the left kidney. 2. Ascites demonstrated within the right upper quadrant and within the abdomen/lower pelvis.
--- NOTE | 2022-07-19 14:58 | US ---
EXAMINATION TYPE: US abdomen limited DATE OF EXAM: 07/19/2022 COMPARISON: CT, US 2021 CLINICAL INDICATION: Female, 77 years old with history of R/O ascites; Ascites check. Scanned the abdomen for ascites. Ascites was seen in all areas scanned. IMPRESSION: Small to moderate amount of ascites throughout the abdomen and pelvis.
[2022-07-19 16:17] LABS: Glucose,Whole Blood 321 mg/dL (70-110)
[2022-07-19] MEDS ORDERED: WARFARIN 0.5 MG TAB PO ONE (18:00)
--- NOTE | 2022-07-19 18:14 | P.PN ---
Subjective Progress Note Date: 07/19/22 I'm seeing this patient in new consultation today 07/09/2022 for progressive shortness of breath starting yesterday. This is a 77-year-old white female with a significant medical history for congestive heart failure, moderate persistent asthma, atrial fibrillation, left atrial appendage thrombus, diabetes mellitus type 2, hypertension, hypothyroidism, nonalcoholic cirrhosis of the liver, brain bleed, mild obstructive sleep apnea, remote history of smoking 36 years ago. Patient presented yesterday for difficulty breathing that started on Saturday. Patient reports shortness breath especially when exerting herself or lying flat, wheezing, fluid retention in her lower extremities, weight gain of about 3 pounds, and heart palpitations. She also reports some upper respiratory tract infection symptoms such as runny nose, cough with brown sputum production, and chills. She denies any subjective fevers or chest pain. Patient does follow with Dr. Gupta in the office for management of her moderate persistent asthma and mild obstructive sleep apnea. Patient patient states that she takes alb uterol and Symbicort on an outpatient basis. She also follows with a shoe sewing machine operator and tender from [place], and has a planned LENNY and watchman procedure this Saturday. Patient is currently resting in bed, on AIRVO 35 L and 30% high flow cannula, in no acute distress. Chest x-ray on arrival showed mild cardiomegaly with mild diffuse interstitial opacities. No obvious focal consolidation. NT proBNP was mildly elevated at 1700. CBC on arrival shows a non-elevated WBC count of 3.9, hemoglobin 12, hematocrit 37, platelets 145,000. Patient's INR on arrival was sub-therapeutic at 1.6. Patient does take Coumadin on outpatient basis. Patient has reported some minimal rectal bleeding on and Saturday of this previous week. No bleeding since reported. BMP shows a sodium 137, potassium 4.2, chloride 104, serum CO2 31, BUN 23, creatinine 0.86, glucose 113. Lactic acid 1.5. LFTs mildly elevated. Negative for influenza, RSV, COVID-19. Pro-calcitonin levels pending. Patient is currently receiving bronchodilators and IV Solu-Medrol. She is also receiving empiric antibiotics for community associated pneumonia. Remains afebrile. Vital signs are stable. Progress note dated 07/10/2022. 7-year-old patient seen for shortness of breath, in room 374, secondary to asthma exacerbation, and diastolic CHF. Currently, the patient's on 3 L of oxygen. She's not receiving any IV fluids. Clinically, she feels better. White count 16.5, hemoglobin 12.8, hematocrit 40, and platelet count is normal. PTT is 22 with an INR of 2.2. Sodium, potassium, chloride, CO2, and anion gap, are all normal. BUN is 30 with a creatinine of 1.14. Chest x-ray shows a pattern of improving volume status. Progress note dated 07/11/2022. 77-year-old female seen today in room 374. The patient was admitted with a diagnosis of asthma exacerbation, and diastolic CHF. The patient was to have a cardiac procedure done on Saturday, and an outside hospital. The patient should not have that done at this time. She remains on 2 L of oxygen. No IV fluids. Her daughter is in the room with her. The patient's only feeling marginally better. I did mention to the shoe sewing machine operator and tender here, at her procedure should be canc eled. White count 10.5, hemoglobin 12.5, hematocrit 39.5, with a normal platelet count. PT 25.6 with an INR 2.6. Sodium 136, potassium 4.2, chlorides 100, CO2 31, BUN 38, creatinine 1.10. Progress note dated 07/12/2022. 77-year-old patient seen in room 374. The patient states that she had a bad night last night, apparently developing atrial fibrillation. She is also quite bronchospastic and wheezy. Currently, she is on 2 L of oxygen. She's not receiving any IV fluids. Saturations are 97%. She was receiving a breathing treatment today, when we saw her in the room. No new labs today to report. Progress note dated 07/13/2022. 77-year-old female seen in room 374. The patient complains of being short of breath, and quite bronchospastic. She feels like she can't cough up phlegm. Currently, she remains on 2 L of oxygen. She's not receiving any IV fluids. She remains on corticosteroids, inhaled corticosteroids, as well as albuterol sulfate and ipratropium bromide. She apparently cannot tolerate long-acting beta agonist, which is why she's not receiving them. PTT 26.9, INR 2.8. Sodium 137, potassium 4.6, chlorides 100, CO2 36, BUN 44, and creatinine 1.10. Glucose 229. Calcium is 8.2. Progress note dated 07/14/2022. 77-year-old female seen again in room 374. The patient complains of tightness in her chest, shortness of breath, and bronchospasm. She's having a hard time coughing up any phlegm. She's currently on 2 L. She certainly no worse. She's not receiving any IV fluids. No new labs today other than a PT of 26.9 and an INR of 2.8. Glucose 252. Progress note dated 07/15/2022. 77-year-old female seen today in room 374. Today she sitting up in the chair. Currently, she is on 2 L of oxygen. She's not receiving IV fluids. She does feel a bit better today. She still has shortness of breath, chest tightness, and cough, with bronchospasm. Labs today include a white count 9.3, hemoglobin 14.2, hematocrit 43.8, and a platelet count of 127,000. PTT is 27.1, with an INR of 2.8. Sodium 137, potassium 5.1, chlorides 97, CO2 35, BUN 52, and cr eatinine 1.14. Progress note dated 07/16/2022. 77-year-old female seen along with her daughter in room 374. The patient remains on 2 L of oxygen. She's feeling better and breathing better. She ce rtainly much less bronchospastic. She denies any chest pain or chest discomfort. Laboratory data includes a white count 11.1, hemoglobin 13.8, hematocrit 43, and a platelet count of 112,000. PTT 30.6, INR 3.1. Sodium 136, potassium 5.1, chlorides 98, CO2 33, BUN 56, creatinine 1.12. Glucose 241. Calcium 8.5. On today's evaluation of 07/17/2022, the patient is still complaining of shortness of breath. On examination he remains bronchospastic and wheezy. She has been hospital for more than a week being treated for an acute COPD exacerbation tracheobronchitis. Chest x-ray was done at time of admission showed no evidence of any acute pneumonia. He is on a combination of bronchodilators and she is also on IV Medrol 60 mg every 6 hours. She has preserved LV function with an EF of around 55-60%. She has nonobstructive coronary artery disease. She has paroxysmal A. fib and the patient is currently on anticoagulation with a therapeutic PT/INR. She has diabetes mellitus type 2, hypertension hyperlipidemia, she also had a INR of 3.1. BUN is 61 with a creatinine of 1.2. The pro-calcitonin level was at 0.09. Her viral serology came back all negative. She is currently on oxygen at 2 L/m nasal cannula with a pulse ox of 95%. On today's evaluation of 07/18/2022, the patient is slightly improved. She still bronchospastic and wheezy although less. She has increased edema lower extremities pH is also complaining of generalized fatigue and weakness. BUN is at 70 with a creatinine of 1.2. Sodium is at 136 with a potassium level IV.8. The patient also has INR of 3.3. The patient is currently on warfarin. She is on bronchodilators. She is also taking Lasix 40 mg by mouth twice a day. On 07/19/2022, the patient is feeling slightly better. Continues to have significant amount of edema lower extremities pH is currently on IV Lasix and she is receiving 40 mg every 12 hours. She is increasing her urine output. Echo documentation of the urine output is not available. However, today's evaluation, she continues to have significant amount of edema lower oximetry is bilaterally. I took her off the IV Solu-Medrol yesterday started on a prednisone burst taper and she is currently on 40 mg P she is also on bronchodilators. She is on Levemir insulin. Blood work from today shows a stable creatinine of 1.49 with a BUN of 81. The sodium was at 136. The potassi um levels at 5.0. She is therapeutic on her INR at 2.7. She is profoundly weak. She will need absolutely further rehabilitation once her condition is more stabilized. Objective - Vital Signs Vital signs: Vital Signs Temp 97.8 F 07/19/22 16:39 Pulse 73 07/19/22 16:39 Resp 20 07/19/22 16:39 BP 127/72 07/19/22 16:39 Pulse Ox 96 07/19/22 16:39 FiO2 29 07/09/22 08:00 Intake & Output 07/18/22 07/19/22 07/19/22 18:59 06:59 18:59 Intake Total 600 540 960 Balance 600 540 960 Intake: Oral 600 540 960 Other: Voiding Method External Catheter External Catheter # Voids 1 - Exam No acute distress, oriented 3. Currently on 2 L. Minimal conversational dyspnea. HEENT examination is grossly unremarkable. Neck supple. Full range of motion. No adenopathy thyromegaly or neck vein distention. Cardiovascular examination reveals regular rhythm rate. S1-S2 normal. No S3 or S4. No discernible murmur noted. Heart rate 86 bpm. Heart sounds are distant. Lungs reveal scattered coarse bilateral expiratory rhonchi. Expiratory wheezes are noted. Breath sounds are equal bilaterally. No crackles. Breath sounds are diminished throughout. Saturations are 95 % on 2 L. Abdomen soft bowel sounds are heard. No masses or tenderness. Extremities are intact. No cyanosis clubbing or edema. Skin is without rash or lesion. Neurologic examination is brief but nonfocal. - Labs CBC & Chem 7: 07/16/22 08:22 07/19/22 07:46 Labs: Abnormal Lab Results - Last 24 Hours (Table) 07/18/22 07/19/22 07/19/22 Range/Units 19:56 06:03 07:46 PT (9.0-12.0) sec INR (<1.2) Sodium 136 L (137-145) mmol/L Chloride 96 L (98-107) mmol/L Carbon Dioxide 35 H (22-30) mmol/L BUN 81 H (7-17) mg/dL Creatinine 1.49 H (0.52-1.04) mg/dL Glucose 218 H (74-99) mg/dL POC Glucose (mg/dL) 313 H 222 H (70-110) mg/dL Calcium 8.3 L (8.4-10.2) mg/dL Magnesium 2.4 H (1.6-2.3) mg/dL Albumin (3.5-5.0) g/dL 07/19/22 07/19/22 07/19/22 Range/Units 07:46 07:46 11:43 PT 26.5 H (9.0-12.0) sec INR 2.7 H (<1.2) Sodium (137-145) mmol/L Chloride (98-107) mmol/L Carbon Dioxide (22-30) mmol/L BUN (7-17) mg/dL Creatinine (0.52-1.04) mg/dL Glucose (74-99) mg/dL POC Glucose (mg/dL) 315 H (70-110) mg/dL Calcium (8.4-10.2) mg/dL Magnesium (1.6-2.3) mg/dL Albumin 2.7 L (3.5-5.0) g/dL 07/19/22 Range/Units 16:15 PT (9.0-12.0) sec INR (<1.2) Sodium (137-145) mmol/L Chloride (98-107) mmol/L Carbon Dioxide (22-30) mmol/L BUN (7-17) mg/dL Creatinine (0.52-1.04) mg/dL Glucose (74-99) mg/dL POC Glucose (mg/dL) 321 H (70-110) mg/dL Calcium (8.4-10.2) mg/dL Magnesium (1.6-2.3) mg/dL Albumin (3.5-5.0) g/dL Assessment and Plan Plan: Acute exacerbation of asthma, as well as mild exacerbation of diastolic CHF, leading to hypoxemic respiratory failure. The pro-calcitonin level was normal. The chest x-ray initially was within normal limits and the patient is on a combination of bronchodilators and steroids. The vital serology was also negative. Improvement is ongoing but it's quite slow. Echocardiogram shows a preserved LV function Extensive lower extremity edema, currently on IV Lasix with some interval worsening in the BUN and a creatinine on today's blood work. History of paroxysmal atrial fibrillation. The INR is therapeutic at this point in time Increased lower extremity edema History of subdural hematoma, January 2022. History of rectal bleeding. Type 2 diabetes mellitus. Essential hypertension. Morbid obesity. Nonalcoholic steatohepatitis. Gastroesophageal reflux disease, without esophagitis, status post Ambrose fundoplication. History of hypothyroidism. Mild obstructive sleep apnea syndrome. Previous history of tobacco use. Right ovarian mass. Plan Rest or status is stable Continue bronchodilators and steroids and the patient is on DuoNeb neb in addition to Perforomist and Pulmicort updrafts twice a day Provide the case prednisone burst taper IV Lasix 40 mg every 12 hours over the next 24 hours Ultrasound the kidneys was done by nephrology and the patient has some limited hydronephrosis on the right, no hydronephrosis is on the left, some ascites also demonstrated in the right upper quadrant area. Monitor lower extremity edema fluid balance [employer] Be[employer] Cattle Farmer on the case She will likely need an ECF once her condition is more stabilized.
--- NOTE | 2022-07-19 19:44 | P.PN ---
Subjective Progress Note Date: 07/19/22 Patient is a 77-year-old female with a past medical history of COPD presents to ER with complaints of worsening shortness of breath for the past 7 days and weight gain about 3 pounds. Initial laboratory test showed WBC 3.9 hemoglobin 12.0 and platelets 145 BUN 23 and creatinine 0.86 AST 65 ALT 34 alk phos 186 and proBNP 1700 and procalcitonin level was 0.13. Albumin 2.5. Urinalysis negative for infection. COVID-19, influenza A B and RSV PCR not detected. 07/09/2022 Patient is currently lying in the bed. Patient is on Airvo 35 L at 30% FiO2. Patient has been afebrile overnight. Was having cough with brown sputum production. No complaints of chest pain.No nausea vomiting abdominal pain or diarrhea. Chest x-ray showed improving volume overload or pulmonary edema. Laboratory data showed WBC 3.3 hemoglobin 12.2 and platelets 136 INR 1.7 Sodium 137 potassium 4.1 chloride 103 bicarb is 30 BUN 25 and creatinine 0.98 and blood sugar is 197. Calcium 7.9. 07/10/2022 Patient is seen and evaluated in follow-up today with pulmonary and cardiology following. Patient continues to have shortness of breath and maintained on oxygen with pulmonary following and patient is receiving IV ceftriaxone and has finished a Zithromax. Patient is on Coumadin with pharmacy to dose and also being maintained on IV Lasix with dose being adjusted to 40 mg twice daily and will continue. Patient does continue on IV steroids and would recommend monitoring Accu-Cheks before meals and at bedtime and use sliding scale as needed. Patient does not normally wear oxygen in the outpatient setting and recommended wean FiO2 as tolerated and will evaluate for possible home O2 requirements. Patient is currently afebrile, denies chest pain or palpitations. Patient is reporting that she is eating with occasional nausea with no vomiting noted. Encouraged increase activity as tolerated. 07/11/2022 Patient is seen and evaluated in follow-up today currently maintained on IV Lasix and kidney function stable and diuresing well with cardiology and pulmonary following closely. Patient also maintained on IV steroids along with breathing treatments and 3 L of oxygen via nasal cannula. Patient continues to report a junky cough although reports is having some improvements in her shortness of breath. Patient reports not a significant improvement. Patient is afebrile maintained on antibiotics and will continue for now. Patient denies worsening shortness of breath, chest pains, or palpitations. No reports of nausea or vomiting and patient is tolerating diet. Encouraged increased activity as tolerated. Recommend follow-up labs to monitor electrolytes and kidney functions closely. 07/12/2022 Patient is seen and evaluated in follow-up today and is maintained on telemetry monitoring with pulmonary and cardiology following. Patient reports there was an episode of atrial for ablation with RVR and cardiology was notified and given an extra dose of metoprolol and is currently sinus rhythm. Patient continues to report shortness of breath with wheezing and crackles noted. Patient is continued on IV steroids along with breathing treatments and pulmonary is following closely. Patient reports she feels quite frustrated with not getting better and wants to go home. Her follow-up LENNY for possible watchman device has been rescheduled. Patient is currently afebrile with no reports of chest pain or palpitations. No reports of nausea vomiting and patient tolerating diet. Encouraged oral intake. 07/13/2022 Patient is seen in follow-up this morning continues to be short of breath with wheezing and bronchospastic. Patient is maintained on inhalers along with breathing treatments, IV steroids, IV ceftriaxone along with IV Lasix with pulmonary and cardiology following closely. Patient is continued on 3 L via nasal cannula and reports does not wear any oxygen at home. Patient appears winded during conversation and takes multiple breaks to catch her breath. Will follow up on chest x-ray in the a.m. Patient is currently afebrile with no reports of chest pain or palpitations. Patient continues with a cough with difficulty expectorating any phlegm. No reports of nausea vomiting and patient is tolerating diet encourage small frequent meals. Patient is weak and with prolonged hospitalization would recommend possible physical therapy evaluation. Patient's blood sugars being monitored with Accu-Cheks and has sliding scale and will continue with current regimen. 07/14/2022 Patient is currently resting in the bed. Awake alert and oriented x3. Currently requiring 2 L oxygen via nasal cannula. Still complains of shortness of breath and tightness. Bilateral wheezing and scattered rhonchi especially in the basilar on physical exam. No complaints of chest pain. No nausea vomiting abdominal pain or diarrhea. Tolerating oral diet. Was also complaining of constipation. Patient is being continued on IV Solu-Medrol 60 mg every 6 hourly and is also on Lasix 40 mg every 12 IV. Pulmonary and cardiology is on board. Most recent Laboratory data reviewed. 07/15/2022 Patient states that she feels better today. Breathing status is improving. Requiring oxygen at 2 L via nasal cannula. No complaints of chest pain. Less bronchospastic today. Otherwise patient is being continued on Solu-Medrol 60 mg every 6 hourly patient is also on Lasix 40 mg every 12. Laboratory showed WBC 9.3 hemoglobin 14.1 platelets 127 INR 2.8 BUN 15 creatinine 1.14 and blood sugar is 235. Patient will be started on insulin regimen. 07/16/2022 Patient is seen and evaluated and follow-up this morning with cardiology and pulmonary following. Patient is maintained on IV steroids along with breathing treatments and weaning as tolerated down to 2 L via nasal cannula. Patient also maintained on IV Lasix and continues to have lower extremity edema and continued shortness of breath. Kidney functions are being monitored and creatinine trending down. Patient is maintained on Coumadin with pharmacy to dose and INR was 3.0 today. Recommend monitoring INR levels closely. Patient is requiring assistance with getting up and will add PT/OT therapy for evaluation. Patient reports she will be going home once stabilized and discharged. Patient is currently afebrile with no reports of chest pain or palpitations. Patient continues to report shortness of breath although no worse. Patient has had prolonged hospitalization extremely slow to improve. Will follow-up labs in the a.m. 07/17/2022 Patient is seen and evaluated in follow-up today with pulmonary and cardiology following. Patient has been switched to oral Lasix elbow continues to have significant lower extremity edema with shortness of breath and overload. We'll transition Lasix back to IV at 60 mg twice a day and follow-up with repeat labs. Current creatinine is 1.2. Patient reports is making urine but unsure how much in intake and output is not being documented strictly. Patient did have some increased abdominal distention and reports not having much of bowel movements will order abdominal x-ray and follow-up chest x-ray from today is pending. Patient is currently afebrile and denies chest pain or palpitations. No reports of nausea or vomiting and patient is tolerating diet. 07/18/2022 Patient is seen in follow-up this morning continues to report shortness of breath and maintained on 2 L via nasal cannula. Cardiology following recommending transitioning back to oral Lasix although pulmonary has continued with IV Lasix for continued lower extremity edema. Will add compression stockings as well. Patient does continue with weakness and has had prolonged hospitalization will consult PT/OT therapy and discuss again further with case management along with patient about possible ECF. Patient reports she will be returning home although given her significant comorbidities and prolonged ho spitalization patient may benefit from ECF for continued strength and mobility prior to returning home. Patient is currently afebrile denies chest pain or palpitations. Patient is tolerating oral intake and was continued on IV steroids which are being transitioned to oral prednisone. 07/19/2022 Patient is seen and evaluated in follow-up this morning currently sitting up in the chair with at bedside. Patient is continued on 2 L via nasal cannula and patient reports dyspnea although feels somewhat improved. Patient is very slow to progress and is continued on breathing treatments and has been transitioned oral steroids. Patient's blood sugars elevated and will increase long-acting and continue sliding scale monitor Accu-Cheks before meals and at bedtime. Patient also continues on IV Lasix although having some worsening in kidney functions and nephrology was consulted. Recommend fluid restrictions and awaiting abdominal ultrasound. Patient will be continued on IV Lasix and attempted CAMRYN hose although unable to tolerate. Patient does continue with bilateral lower extremity edema 2+ pitting. Afebrile with no reports of nausea or vomiting noted. Patient continues to report shortness of breath and denies chest pain or palpitations. Review of systems: Constitutional: no reports of fatigue today, no fever, or chills Cardiovascular: No reports of chest pain or palpitations Respiratory: Reports of continued shortness of breath and cough which she feels is slowly improving GI: No reports of nausea, vomiting, or diarrhea : No reports of dysuria or retention Neurovascular: reports of generalized weakness All medications have been reviewed Active Medications Acetaminophen (Acetaminophen Tab 325 Mg Tab) 650 mg PO Q6H PRN PRN Reason: Mild Pain or Fever > 100.5 Last Admin: 07/17/22 12:50 Dose: 325 mg Albuterol/Ipratropium (Ipratropium-Albuterol 3 Ml Neb) 3 ml INHALATION RT-QID ERMA Last Admin: 07/19/22 15:03 Dose: 3 ml Ascorbic Acid (Ascorbic Acid 500 Mg Tab) 1,000 mg PO DAILY REPLACED BY [facility] Last Admin: 07/19/22 11:14 Dose: 1,000 mg Budesonide (Budesonide 1 Mg/2 Ml Nebu) 1 mg INHALATION RT-BID REPLACED BY [facility] Last Admin: 07/19/22 07:49 Dose: 1 mg Cholecalciferol (Cholecalciferol 25 Mcg (1000 Iu) Tablet) 25 mcg PO DAILY REPLACED BY [facility] Last Admin: 07/19/22 11:14 Dose: 25 mcg Citalopram Hydrobromide (Citalopram Hydrobromide 20 Mg Tab) 20 mg PO HS REPLACED BY [facility] Last Admin: 07/18/22 20:12 Dose: 20 mg Dextrose/Water (Dextrose 50% Syringe 50 Ml) 25 ml IVP PER PROTOCOL PRN; Protocol PRN Reason: Hypoglycemia Dextrose/Water (Dextrose 50% Syringe 50 Ml) 50 ml IVP PER PROTOCOL PRN; Protocol PRN Reason: Hypoglycemia Ferrous Sulfate (Ferrous Sulfate 325 Mg Tab) 325 mg PO Q48H REPLACED BY [facility] Last Admin: 07/18/22 08:22 Dose: 325 mg Furosemide (Furosemide 10 Mg/Ml 4 Ml Vial) 40 mg IV Q12HR REPLACED BY [facility] Last Admin: 07/19/22 11:20 Dose: 40 mg Insulin Aspart (Insulin Aspart (Novolog) 100 Unit/Ml Vial) 0 unit SQ ACHS REPLACED BY [facility]; Protocol Last Admin: 07/19/22 17:10 Dose: 4 unit Insulin Detemir (Insulin Detemir (Levemir) 100 Unit/Ml Syr) 15 unit SQ BI D@0700,2100 REPLACED BY [facility] Levothyroxine Sodium (Levothyroxine 50 Mcg Tab) 50 mcg PO DAILY@0630 REPLACED BY [facility] Last Admin: 07/19/22 06:13 Dose: 50 mcg Magnesium Oxide (Magnesium Oxide 400 Mg Tab) 400 mg PO DAILY REPLACED BY [facility] Last Admin: 07/19/22 11:14 Dose: 400 mg Metolazone (Metolazone 5 Mg Tab) 5 mg PO DAILY REPLACED BY [facility] Last Admin: 07/19/22 13:06 Dose: 5 mg Metoprolol Tartrate (Metoprolol Tartrate 50 Mg Tab) 50 mg PO BID REPLACED BY [facility] Last Admin: 07/19/22 11:14 Dose: 50 mg Miscellaneous Information (Warfarin Per Pharmacy) 0 each MISCELLANE DIRECTED PRN PRN Reason: PHARMACY DOSING WARFARIN Naloxone HCl (Naloxone 0.4 Mg/Ml 1 Ml Vial) 0.2 mg IVP Q2M PRN PRN Reason: Opioid Reversal Pantoprazole Sodium (Pantoprazole 40 Mg Tablet) 40 mg PO AC-BRKFST REPLACED BY [facility] Last Admin: 07/19/22 06:13 Dose: 40 mg Pramipexole Dihydrochloride (Pramipexole 0.125 Mg Tab) 0.125 mg PO BID REPLACED BY [facility] Last Admin: 07/19/22 11:15 Dose: 0.125 mg Prednisone (Prednisone 20 Mg Tab) 40 mg PO DAILY REPLACED BY [facility] Last Admin: 07/19/22 11:15 Dose: 40 mg Senna (Sennosides 8.6 Mg Tab) 8.6 mg PO DAILY PRN PRN Reason: Constipation Last Admin: 07/15/22 21:02 Dose: 8.6 mg Spironolactone (Spironolactone 25 Mg Tab) 25 mg PO DAILY REPLACED BY [facility] Last Admin: 07/19/22 11:15 Dose: 25 mg PHYSICAL EXAMINATION: Patient is sitting up in the chair, no acute distress, alert and oriented. Morbidly obese. Currently continued on 2 L HEENT: Normocephalic. Neck is supple. Pupils reactive. Nostrils clear. Oral cavity is moist. Neck reveals no JVD, carotid bruits, or thyromegaly. CHEST EXAMINATION: Trachea is central. Symmetrical expansion. Bilateral diffuse rhonchi with some faint crackles at the bases. Bibasilar diminished sounds. Nonlabored breathing. CARDIAC: S1, S2 are muffled, irregular ABDOMEN: Soft. Bowel sounds present. Nontender. No organomegaly. No abdominal bruits. Extremities: 2+ bilateral pedal edema. No clubbing or cyanosis Neurologically awake, alert, oriented. Able to move all extremities. No gross focal deficits noted. Diffusely weak Skin: No rash or skin lesions. Psychiatric: Cooperative. Non-suicidal Musculoskeletal: No joint swelling or deformity. Normal range of motion. Assessment: Worsening shortness of breath which is multifactorial, due to acute CHF exacerbation as well as moderate persistent asthma Moderate persistent asthma with exacerbation Acute CHF with diastolic dysfunction Acute tracheobronchitis and possible pneumonia, pneumonia ruled out Obstructive sleep apnea not on CPAP at home Paroxysmal atrial fibrillation on anticoagulation with Coumadin. Status post episode of atrial fibrillation with RVR on 07/12/2022, currently rate controlled Left atrial thrombus and currently being anticoagulated with warfarin. Patient was supposed to get LENNY, Watchman procedure as an outpatient at [facility] and will follow-up outpatient Hypertension Morbid obesity with BMI of 40.7 Diabetes type 2, uncontrolled with hyperglycemia, also steroid effect History of nonalcoholic hepatic steatosis History of GERD status post Ambrose fundoplication Hypothyroidism Right ovarian mass currently under investigation as an outpatient Prior history of smoking quit 36 years ago History of subdural hematoma in January 2022 Coumadin dosing GI prophylaxis No code Plan: Patient is currently on 2 L nasal cannula oxygen. Weaning FiO2 as tolerated with pulmonary and cardiology following. Patient does not normally wear oxygen at home and will require 2 L via nasal cannula on discharge to manage COPD Continued on IV diuresis with Lasix 40 mg every 12 hours and continues to have lower extremity edema and overload, will follow-up with repeat labs and fluid restrictions and nephrology consulted and now following and patient is being started on metolazone in addition to the IV Lasix and ordered abdominal ultrasound which is currently pending Recommend strict intake and output Patient was maintained on IV steroids and being transitioned oral prednisone taper with pulmonary following Recommend continue monitoring Accu-Cheks before meals and at bedtime and use sliding scale along with long-acting, blood sugars a little uncontrolled with hyperglycemia and increasing the long-acting Coumadin monitoring with pharmacy to dose Patient was supposed to follow-up with cardiology as an outpatient for LENNY with possible Watchman procedure at [facility] on 07/13 and was canceled due to being hospitalized. Will need to be rescheduled once respiratory status is more stable Encouraged increased activity as tolerated and encouraged oral intake. Patient has had prolonged hospitalization with weakness. Patient plans on returning home with family once stabilized and discharged although given her prolonged hospitalization and significant weakness patient may benefit from ECF and will discuss further with case management as well as patient about possible rehab prior to returning home. Awaiting PT/OT therapy evaluation. Will follow-up with labs and discuss further with pulmonary about discharge planning The impression and plan of care has been dictated by Melissa Diaz Nurse Practitioner as directed. Dr. Meri MD I have performed a history and examination and MDM of this patient, discussed the same with the dictator, and agree with the dictator's assessment and plan as written ,documented as a scribe. Based on total visit time, I have performed more than 50% of the visit. Objective - Vital Signs Vital signs: Vital Signs Temp 97.8 F 07/19/22 16:39 Pulse 73 07/19/22 16:39 Resp 20 07/19/22 16:39 BP 127/72 07/19/22 16:39 Pulse Ox 96 07/19/22 16:39 FiO2 29 07/09/22 08:00 Intake & Output 07/19/22 07/19/22 07/20/22 06:59 18:59 06:59 Intake Total 540 960 Output Total 400 Balance 540 560 Intake: Oral 540 960 Output: Urine 400 Other: Voiding Method External Catheter External Catheter # Voids 1 # Bowel Movements 1 - Labs CBC & Chem 7: 07/16/22 08:22 07/19/22 07:46 Labs: Abnormal Lab Results - Last 24 Hours (Table) 07/18/22 07/19/22 07/19/22 Range/Units 19:56 06:03 07:46 PT (9.0-12.0) sec INR (<1.2) Sodium 136 L (137-145) mmol/L Chloride 96 L (98-107) mmol/L Carbon Dioxide 35 H (22-30) mmol/L BUN 81 H (7-17) mg/dL Creatinine 1.49 H (0.52-1.04) mg/dL Glucose 218 H (74-99) mg/dL POC Glucose (mg/dL) 313 H 222 H (70-110) mg/dL Calcium 8.3 L (8.4-10.2) mg/dL Magnesium 2.4 H (1.6-2.3) mg/dL Albumin (3.5-5.0) g/dL 07/19/22 07/19/22 07/19/22 Range/Units 07:46 07:46 11:43 PT 26.5 H (9.0-12.0) sec INR 2.7 H (<1.2) Sodium (137-145) mmol/L Chloride (98-107) mmol/L Carbon Dioxide (22-30) mmol/L BUN (7-17) mg/dL Creatinine (0.52-1.04) mg/dL Glucose (74-99) mg/dL POC Glucose (mg/dL) 315 H (70-110) mg/dL Calcium (8.4-10.2) mg/dL Magnesium (1.6-2.3) mg/dL Albumin 2.7 L (3.5-5.0) g/dL 07/19/22 Range/Units 16:15 PT (9.0-12.0) sec INR (<1.2) Sodium (137-145) mmol/L Chloride (98-107) mmol/L Carbon Dioxide (22-30) mmol/L BUN (7-17) mg/dL Creatinine (0.52-1.04) mg/dL Glucose (74-99) mg/dL POC Glucose (mg/dL) 321 H (70-110) mg/dL Calcium (8.4-10.2) mg/dL Magnesium (1.6-2.3) mg/dL Albumin (3.5-5.0) g/dL
[2022-07-19 20:02] LABS: Glucose,Whole Blood 243 mg/dL (70-110)
[2022-07-19] MEDS: CITALOPRAM HYDROBROMIDE 20 MG TAB PO SCH (20:10)
[2022-07-20 06:22] LABS: Glucose,Whole Blood 163 mg/dL (70-110)
[2022-07-20] MEDS: INSULIN DETEMIR (LEVEMIR) 100 UNIT/ML SYR SQ SCH ×2 (06:26→20:21)
[2022-07-20] MEDS: LEVOTHYROXINE 50 MCG TAB PO SCH (06:26)
[2022-07-20] MEDS: INSULIN ASPART (NovoLOG) 100 UNIT/ML VIAL SQ SCH ×4 (06:28→20:21)
[2022-07-20] MEDS: PANTOPRAZOLE 40 MG TABLET PO SCH (06:28)
[2022-07-20] MEDS: IPRATROPIUM-ALBUTEROL 3 ML NEB INHALATION SCH ×4 (08:21→20:49)
[2022-07-20] MEDS: BUDESONIDE 1 MG/2 ML NEBU INHALATION SCH ×2 (08:21→20:49)
[2022-07-20 09:15] LABS: Calcium 8.3 mg/dL (8.4-10.2); Potassium 5.1 mmol/L (3.5-5.1)
[2022-07-20] MEDS: CHOLECALCIFEROL 25 MCG (1000 IU) TABLET PO SCH (09:18)
[2022-07-20] MEDS: ASCORBIC ACID 500 MG TAB PO SCH (09:18)
[2022-07-20] MEDS: SPIRONOLACTONE 25 MG TAB PO SCH (09:19)
[2022-07-20] MEDS: predniSONE 20 MG TAB PO SCH (09:19)
[2022-07-20] MEDS: PRAMIPEXOLE 0.125 MG TAB PO SCH ×2 (09:19→20:22)
[2022-07-20] MEDS: METOPROLOL TARTRATE 50 MG TAB PO SCH ×2 (09:19→20:22)
[2022-07-20] MEDS: FERROUS SULFATE 325 MG TAB PO SCH (09:19)
[2022-07-20] MEDS: metOLazone 5 MG TAB PO SCH (09:19)
[2022-07-20] MEDS: MAGNESIUM OXIDE 400 MG TAB PO SCH (09:19)
[2022-07-20] MEDS: FUROSEMIDE 10 MG/ML 4 ML VIAL IV SCH (09:28)
[2022-07-20 09:56] LABS: INR 2.9 (<1.2); Prothrombin Time 27.8 sec (9.0-12.0)
--- NOTE | 2022-07-20 11:33 | P.PN ---
Subjective Patient is seen in follow-up for acute kidney injury. Renal function fairly stable. She is on IV Lasix and metolazone. Urine output documented is 1.1 L. Still quite edematous. Hemodynamically stable. On 2 L nasal cannula. Vital signs are stable. General: No acute distress. HEENT: Head exam is unremarkable. On nasal cannula. LUNGS: No audible rhonchi or wheezes. HEART: Rate and Rhythm are regular. ABDOMEN: Nontender. EXTREMITITES: 2+ edema. Objective - Vital Signs Vital signs: Vital Signs Temp 98.1 F 07/20/22 07:18 Pulse 80 07/20/22 08:40 Resp 18 07/20/22 08:36 BP 150/75 07/20/22 07:18 Pulse Ox 95 07/20/22 08:24 FiO2 29 07/09/22 08:00 Intake & Output 07/19/22 07/20/22 07/20/22 18:59 06:59 18:59 Intake Total 960 150 128 Output Total 400 700 Balance 560 -550 128 Intake: IV 10 Invasive Line 4 10 Oral 960 150 118 Output: Urine 400 700 Other: Voiding Method External Catheter External Catheter External Catheter # Bowel Movements 1 - Labs CBC & Chem 7: 07/16/22 08:22 07/20/22 08:43 Labs: Abnormal Lab Results - Last 24 Hours (Table) 07/19/22 07/19/22 07/19/22 Range/Units 07:46 11:43 16:15 PT (9.0-12.0) sec INR (<1.2) Sodium (137-145) mmol/L Chloride (98-107) mmol/L Carbon Dioxide (22-30) mmol/L BUN (7-17) mg/dL Creatinine (0.52-1.04) mg/dL Glucose (74-99) mg/dL POC Glucose (mg/dL) 315 H 321 H (70-110) mg/dL Calcium (8.4-10.2) mg/dL Albumin 2.7 L (3.5-5.0) g/dL 07/19/22 07/20/22 07/20/22 Range/Units 20:01 06:21 08:43 PT (9.0-12.0) sec INR (<1.2) Sodium 134 L (137-145) mmol/L Chloride 95 L (98-107) mmol/L Carbon Dioxide 37 H (22-30) mmol/L BUN 86 H (7-17) mg/dL Creatinine 1.58 H (0.52-1.04) mg/dL Glucose 190 H (74-99) mg/dL POC Glucose (mg/dL) 243 H 163 H (70-110) mg/dL Calcium 8.3 L (8.4-10.2) mg/dL Albumin (3.5-5.0) g/dL 07/20/22 Range/Units 08:43 PT 27.8 H (9.0-12.0) sec INR 2.9 H (<1.2) Sodium (137-145) mmol/L Chloride (98-107) mmol/L Carbon Dioxide (22-30) mmol/L BUN (7-17) mg/dL Creatinine (0.52-1.04) mg/dL Glucose (74-99) mg/dL POC Glucose (mg/dL) (70-110) mg/dL Calcium (8.4-10.2) mg/dL Albumin (3.5-5.0) g/dL Assessment and Plan Plan: Assessment: 1. Acute kidney injury secondary to vasomotor nephropathy secondary to cardiorenal syndrome. Creatinine 1.58 today. UA benign. No hydronephrosis noted in the left kidney. Questionable dilated upper collecting system. 2. Acute on chronic diastolic CHF with mild to moderate tricuspid and aortic regurgitation. 3. Volume overload. Ascites noted on ultrasound. 4. History of liver cirrhosis. 5. History of COPD. 6. Diabetes mellitus. Plan: Start Lasix drip. Maintain metolazone. 1500 mL fluid restriction. Low-salt diet. Avoid nephrotoxins. Continue to monitor renal function and urine output. Will also try to get paracentesis done.
[2022-07-20 11:43] LABS: Glucose,Whole Blood 170 mg/dL (70-110)
[2022-07-20] MEDS: NYSTATIN 100,000 UNIT/ML SUSP 500,000 UNIT/5 ML CUP PO SCH ×4 (11:55→20:22)
[2022-07-20] MEDS: FUROSEMIDE 100 MG in SODIUM CHLORIDE 0.9% 90 ML IV SCH ×2 (12:05→20:21)
--- NOTE | 2022-07-20 12:12 | P.PN ---
Subjective Progress Note Date: 07/20/22 This is a 77 year old female patient with known history of intracranial bleed while on anticoagulation for paroxysmal atrial fibrillation, history of CVA as well with good recovery, previous MMA embolization, type 2 diabetes, hypertension, hyperlipidemia, noncritical coronary artery disease on catheterization November. She is a patient of Dr. ELVIRA Patton and follows with Dr. Lindsey and scheduled for watchman procedure on July 13. Patient presented with increasing shortness of breath appears to be COPD exacerbation with bronchial asthma. A cardiogram was completed revealed normal LV systolic function with moderate MR, mild to moderate AI and mild to moderate TR. She remains on warfarin and pharmacy is dosing. 07/20/2022 She was seen and examined resting comfortably in a chair. She has been ordered to start Lasix drip by nephrology. She remains on metolazone. Her breathing is a bit better but she continues to have significant lower extremity edema. Objective - Vital Signs Vital signs: Vital Signs Temp 98.1 F 07/20/22 07:18 Pulse 80 07/20/22 12:03 Resp 18 07/20/22 08:36 BP 150/75 07/20/22 07:18 Pulse Ox 95 07/20/22 08:24 FiO2 29 07/09/22 08:00 Intake & Output 07/19/22 07/20/22 07/20/22 18:59 06:59 18:59 Intake Total 960 150 128 Output Total 400 700 Balance 560 -550 128 Intake: IV 10 Invasive Line 4 10 Oral 960 150 118 Output: Urine 400 700 Other: Voiding Method External Catheter External Catheter External Catheter # Bowel Movements 1 - Exam GENERAL: Well-developed in no acute distress. NECK: Supple. No JVD or thyromegaly LUNGS: Respirations even and unlabored. Lungs with wheezing noted throughout. HEART: Regular rate and rhythm. S1 and S2 heard. + systolic murmur. EXTREMITIES: Normal range of motion. No clubbing or cyanosis. Peripheral pulses intact. 2+ bilateral lower extremity edema - Labs CBC & Chem 7: 07/16/22 08:22 07/20/22 08:43 Labs: Abnormal Lab Results - Last 24 Hours (Table) 07/19/22 07/19/22 07/20/22 Range/Units 16:15 20:01 06:21 PT (9.0-12.0) sec INR (<1.2) Sodium (137-145) mmol/L Chloride (98-107) mmol/L Carbon Dioxide (22-30) mmol/L BUN (7-17) mg/dL Creatinine (0.52-1.04) mg/dL Glucose (74-99) mg/dL POC Glucose (mg/dL) 321 H 243 H 163 H (70-110) mg/dL Calcium (8.4-10.2) mg/dL 07/20/22 07/20/22 07/20/22 Range/Units 08:43 08:43 11:42 PT 27.8 H (9.0-12.0) sec INR 2.9 H (<1.2) Sodium 134 L (137-145) mmol/L Chloride 95 L (98-107) mmol/L Carbon Dioxide 37 H (22-30) mmol/L BUN 86 H (7-17) mg/dL Creatinine 1.58 H (0.52-1.04) mg/dL Glucose 190 H (74-99) mg/dL POC Glucose (mg/dL) 170 H (70-110) mg/dL Calcium 8.3 L (8.4-10.2) mg/dL Assessment and Plan Assessment: Acute COPD exacerbation Tracheobronchitis Bronchial asthma Acute on chronic congestive heart failure with preserved ejection fraction, EF 55-60% Nonobstructive coronary artery disease Left atrial thrombus with plan for watchman procedure-to be rescheduled Paroxysmal atrial fibrillation History of intracranial bleed History of CVA Hypertension Hyperlipidemia Diabetes mellitus type 2 Valvular heart disease Acute kidney injury, secondary to diuresis Plan: From Cardiology's perspective agree with Lasix IV drip. Continue to monitor r enal function, electrolytes, accurate I&O and daily weights. CT dose Coumadin. Patient to follow-up at [facility] in regards to watchman procedure as an outpatient. Continue to follow the patient provide further recommendations accordingly. NETWORK INTERN note has been reviewed, I agree with a documented findings and plan of care. Patient was seen and examined.
--- NOTE | 2022-07-20 14:59 | P.PN ---
Subjective Progress Note Date: 07/20/22 I'm seeing this patient in new consultation today 07/09/2022 for progressive shortness of breath starting yesterday. This is a 77-year-old white female with a significant medical history for congestive heart failure, moderate persistent asthma, atrial fibrillation, left atrial appendage thrombus, diabetes mellitus type 2, hypertension, hypothyroidism, nonalcoholic cirrhosis of the liver, brain bleed, mild obstructive sleep apnea, remote history of smoking 36 years ago. Patient presented yesterday for difficulty breathing that started on Saturday. Patient reports shortness breath especially when exerting herself or lying flat, wheezing, fluid retention in her lower extremities, weight gain of about 3 pounds, and heart palpitations. She also reports some upper respiratory tract infection symptoms such as runny nose, cough with brown sputum production, and chills. She denies any subjective fevers or chest pain. Patient does follow with Dr. Gupta in the office for management of her moderate persistent asthma and mild obstructive sleep apnea. Patient patient states that she takes alb uterol and Symbicort on an outpatient basis. She also follows with a sales training manager from [place], and has a planned LENNY and watchman procedure this Saturday. Patient is currently resting in bed, on AIRVO 35 L and 30% high flow cannula, in no acute distress. Chest x-ray on arrival showed mild cardiomegaly with mild diffuse interstitial opacities. No obvious focal consolidation. NT proBNP was mildly elevated at 1700. CBC on arrival shows a non-elevated WBC count of 3.9, hemoglobin 12, hematocrit 37, platelets 145,000. Patient's INR on arrival was sub-therapeutic at 1.6. Patient does take Coumadin on outpatient basis. Patient has reported some minimal rectal bleeding on and Saturday of this previous week. No bleeding since reported. BMP shows a sodium 137, potassium 4.2, chloride 104, serum CO2 31, BUN 23, creatinine 0.86, glucose 113. Lactic acid 1.5. LFTs mildly elevated. Negative for influenza, RSV, COVID-19. Pro-calcitonin levels pending. Patient is currently receiving bronchodilators and IV Solu-Medrol. She is also receiving empiric antibiotics for community associated pneumonia. Remains afebrile. Vital signs are stable. Progress note dated 07/10/2022. 7-year-old patient seen for shortness of breath, in room 374, secondary to asthma exacerbation, and diastolic CHF. Currently, the patient's on 3 L of oxygen. She's not receiving any IV fluids. Clinically, she feels better. White count 16.5, hemoglobin 12.8, hematocrit 40, and platelet count is normal. PTT is 22 with an INR of 2.2. Sodium, potassium, chloride, CO2, and anion gap, are all normal. BUN is 30 with a creatinine of 1.14. Chest x-ray shows a pattern of improving volume status. Progress note dated 07/11/2022. 77-year-old female seen today in room 374. The patient was admitted with a diagnosis of asthma exacerbation, and diastolic CHF. The patient was to have a cardiac procedure done on Saturday, and an outside hospital. The patient should not have that done at this time. She remains on 2 L of oxygen. No IV fluids. Her daughter is in the room with her. The patient's only feeling marginally better. I did mention to the sales training manager here, at her procedure should be canc eled. White count 10.5, hemoglobin 12.5, hematocrit 39.5, with a normal platelet count. PT 25.6 with an INR 2.6. Sodium 136, potassium 4.2, chlorides 100, CO2 31, BUN 38, creatinine 1.10. Progress note dated 07/12/2022. 77-year-old patient seen in room 374. The patient states that she had a bad night last night, apparently developing atrial fibrillation. She is also quite bronchospastic and wheezy. Currently, she is on 2 L of oxygen. She's not receiving any IV fluids. Saturations are 97%. She was receiving a breathing treatment today, when we saw her in the room. No new labs today to report. Progress note dated 07/13/2022. 77-year-old female seen in room 374. The patient complains of being short of breath, and quite bronchospastic. She feels like she can't cough up phlegm. Currently, she remains on 2 L of oxygen. She's not receiving any IV fluids. She remains on corticosteroids, inhaled corticosteroids, as well as albuterol sulfate and ipratropium bromide. She apparently cannot tolerate long-acting beta agonist, which is why she's not receiving them. PTT 26.9, INR 2.8. Sodium 137, potassium 4.6, chlorides 100, CO2 36, BUN 44, and creatinine 1.10. Glucose 229. Calcium is 8.2. Progress note dated 07/14/2022. 77-year-old female seen again in room 374. The patient complains of tightness in her chest, shortness of breath, and bronchospasm. She's having a hard time coughing up any phlegm. She's currently on 2 L. She certainly no worse. She's not receiving any IV fluids. No new labs today other than a PT of 26.9 and an INR of 2.8. Glucose 252. Progress note dated 07/15/2022. 77-year-old female seen today in room 374. Today she sitting up in the chair. Currently, she is on 2 L of oxygen. She's not receiving IV fluids. She does feel a bit better today. She still has shortness of breath, chest tightness, and cough, with bronchospasm. Labs today include a white count 9.3, hemoglobin 14.2, hematocrit 43.8, and a platelet count of 127,000. PTT is 27.1, with an INR of 2.8. Sodium 137, potassium 5.1, chlorides 97, CO2 35, BUN 52, and cr eatinine 1.14. Progress note dated 07/16/2022. 77-year-old female seen along with her daughter in room 374. The patient remains on 2 L of oxygen. She's feeling better and breathing better. She ce rtainly much less bronchospastic. She denies any chest pain or chest discomfort. Laboratory data includes a white count 11.1, hemoglobin 13.8, hematocrit 43, and a platelet count of 112,000. PTT 30.6, INR 3.1. Sodium 136, potassium 5.1, chlorides 98, CO2 33, BUN 56, creatinine 1.12. Glucose 241. Calcium 8.5. On today's evaluation of 07/17/2022, the patient is still complaining of shortness of breath. On examination he remains bronchospastic and wheezy. She has been hospital for more than a week being treated for an acute COPD exacerbation tracheobronchitis. Chest x-ray was done at time of admission showed no evidence of any acute pneumonia. He is on a combination of bronchodilators and she is also on IV Medrol 60 mg every 6 hours. She has preserved LV function with an EF of around 55-60%. She has nonobstructive coronary artery disease. She has paroxysmal A. fib and the patient is currently on anticoagulation with a therapeutic PT/INR. She has diabetes mellitus type 2, hypertension hyperlipidemia, she also had a INR of 3.1. BUN is 61 with a creatinine of 1.2. The pro-calcitonin level was at 0.09. Her viral serology came back all negative. She is currently on oxygen at 2 L/m nasal cannula with a pulse ox of 95%. On today's evaluation of 07/18/2022, the patient is slightly improved. She still bronchospastic and wheezy although less. She has increased edema lower extremities pH is also complaining of generalized fatigue and weakness. BUN is at 70 with a creatinine of 1.2. Sodium is at 136 with a potassium level IV.8. The patient also has INR of 3.3. The patient is currently on warfarin. She is on bronchodilators. She is also taking Lasix 40 mg by mouth twice a day. On 07/19/2022, the patient is feeling slightly better. Continues to have significant amount of edema lower extremities pH is currently on IV Lasix and she is receiving 40 mg every 12 hours. She is increasing her urine output. Echo documentation of the urine output is not available. However, today's evaluation, she continues to have significant amount of edema lower oximetry is bilaterally. I took her off the IV Solu-Medrol yesterday started on a prednisone burst taper and she is currently on 40 mg P she is also on bronchodilators. She is on Levemir insulin. Blood work from today shows a stable creatinine of 1.49 with a BUN of 81. The sodium was at 136. The potassi um levels at 5.0. She is therapeutic on her INR at 2.7. She is profoundly weak. She will need absolutely further rehabilitation once her condition is more stabilized. 07/20/2022, the patient is weak and lethargic. She continues to have significant amount of third spacing and edema in lower extremities bilaterally. The patient also has chronic kidney dysfunction. The patient was on IV Lasix and the patient has been negative fluid balance. Urine output has not been adequate however. The patient was seen by nephrology and the patient was started on Lasix of 10 mg an hour. On today's evaluation she has a BUN of 86 with a creatinine of 1.5. Sodiums of 134. Potassium level is 5.1. INR therapeutic at 2.9. The patient is on DuoNeb updrafts. She was taken off the IV Solu-Medrol started on a prednisone burst taper starting at 40 mg. Objective - Vital Signs Vital signs: Vital Signs Temp 98.5 F 07/20/22 11:58 Pulse 80 07/20/22 12:03 Resp 18 07/20/22 11:58 BP 138/77 07/20/22 11:58 Pulse Ox 93 L 07/20/22 11:58 FiO2 29 07/09/22 08:00 Intake & Output 07/19/22 07/20/22 07/20/22 18:59 06:59 18:59 Intake Total 960 150 128 Output Total 400 700 Balance 560 -550 128 Intake: IV 10 Invasive Line 4 10 Oral 960 150 118 Output: Urine 400 700 Other: Voiding Method External Catheter External Catheter External Catheter # Bowel Movements 1 - Exam No acute distress, oriented 3. Currently on 2 L. Minimal conversational dyspnea. HEENT examination is grossly unremarkable. Neck supple. Full range of motion. No adenopathy thyromegaly or neck vein distention. Cardiovascular examination reveals regular rhythm rate. S1-S2 normal. No S3 or S4. No discernible murmur noted. Heart rate 86 bpm. Heart sounds are distant. Lungs reveal scattered coarse bilateral expiratory rhonchi. Expiratory wheezes are noted. Breath sounds are equal bilaterally. No crackles. Breath sounds are diminished throughout. Saturations are 95 % on 2 L. Abdomen soft bowel sounds are heard. No masses or tenderness. Extremities are intact. No cyanosis clubbing or edema. Skin is without rash or lesion. Neurologic examination is brief but nonfocal. - Labs CBC & Chem 7: 07/16/22 08:22 07/20/22 08:43 Labs: Abnormal Lab Results - Last 24 Hours (Table) 07/19/22 07/19/22 07/20/22 Range/Units 16:15 20:01 06:21 PT (9.0-12.0) sec INR (<1.2) Sodium (137-145) mmol/L Chloride (98-107) mmol/L Carbon Dioxide (22-30) mmol/L BUN (7-17) mg/dL Creatinine (0.52-1.04) mg/dL Glucose (74-99) mg/dL POC Glucose (mg/dL) 321 H 243 H 163 H (70-110) mg/dL Calcium (8.4-10.2) mg/dL 07/20/22 07/20/22 07/20/22 Range/Units 08:43 08:43 11:42 PT 27.8 H (9.0-12.0) sec INR 2.9 H (<1.2) Sodium 134 L (137-145) mmol/L Chloride 95 L (98-107) mmol/L Carbon Dioxide 37 H (22-30) mmol/L BUN 86 H (7-17) mg/dL Creatinine 1.58 H (0.52-1.04) mg/dL Glucose 190 H (74-99) mg/dL POC Glucose (mg/dL) 170 H (70-110) mg/dL Calcium 8.3 L (8.4-10.2) mg/dL Assessment and Plan Plan: Acute exacerbation of asthma, as well as mild exacerbation of diastolic CHF, leading to hypoxemic respiratory failure. The pro-calcitonin level was normal. The chest x-ray initially was within normal limits and the patient is on a combination of bronchodilators and steroids. The vital serology was also negative. Improvement is ongoing but it's quite slow. Echocardiogram shows a preserved LV function Extensive lower extremity edema, currently on IV Lasix with some interval worsening in the BUN and a creatinine on today's blood work. History of paroxysmal atrial fibrillation. The INR is therapeutic at this point in time Increased lower extremity edema History of subdural hematoma, January 2022. History of rectal bleeding. Type 2 diabetes mellitus. Essential hypertension. Morbid obesity. Nonalcoholic steatohepatitis. Gastroesophageal reflux disease, without esophagitis, status post [place]rose f undoplication. History of hypothyroidism. Mild obstructive sleep apnea syndrome. Previous history of tobacco use. Right ovarian mass. Plan Continues to be in fluid overload and will start the patient on Lasix drip at 10 mg an hour Prn Occupational Therapist on the case Continue bronchodilators and steroids and the patient is on DuoNeb neb in addition to Perforomist and Pulmicort updrafts twice a day Provide the case prednisone burst taper Ultrasound the kidneys was done by nephrology and the patient has some limited hydronephrosis on the right, no hydronephrosis is on the left, some ascites also demonstrated in the right upper quadrant area. Monitor lower extremity edema fluid balance Prn Occupational Therapist on the case Repeat electrolytes in the morning. Monitor PT/INR. Will follow.
[2022-07-20 16:34] LABS: Glucose,Whole Blood 257 mg/dL (70-110)
[2022-07-20] MEDS ORDERED: WARFARIN 0.5 MG TAB PO ONE (18:00)
[2022-07-20 20:12] LABS: Glucose,Whole Blood 229 mg/dL (70-110)
[2022-07-20] MEDS: CITALOPRAM HYDROBROMIDE 20 MG TAB PO SCH (20:21)
[2022-07-21] MEDS ORDERED: IPRATROPIUM-ALBUTEROL 3 ML NEB INHALATION STA (03:27)
[2022-07-21] MEDS ORDERED: DILTIAZEM DRIP BOLUS FROM BAG 1 MG SOLN IV ONE (04:58)
[2022-07-21] MEDS ORDERED: DILTIAZEM 125 MG in SODIUM CHLORIDE 0.9% 100 ML IV SCH (05:00)
--- NOTE | 2022-07-21 06:06 | P.PN ---
Subjective Progress Note Date: 07/20/22 Patient is a 77-year-old female with a past medical history of COPD presents to ER with complaints of worsening shortness of breath for the past 7 days and weight gain about 3 pounds. Initial laboratory test showed WBC 3.9 hemoglobin 12.0 and platelets 145 BUN 23 and creatinine 0.86 AST 65 ALT 34 alk phos 186 and proBNP 1700 and procalcitonin level was 0.13. Albumin 2.5. Urinalysis negative for infection. COVID-19, influenza A B and RSV PCR not detected. 07/09/2022 Patient is currently lying in the bed. Patient is on Airvo 35 L at 30% FiO2. Patient has been afebrile overnight. Was having cough with brown sputum production. No complaints of chest pain.No nausea vomiting abdominal pain or diarrhea. Chest x-ray showed improving volume overload or pulmonary edema. Laboratory data showed WBC 3.3 hemoglobin 12.2 and platelets 136 INR 1.7 Sodium 137 potassium 4.1 chloride 103 bicarb is 30 BUN 25 and creatinine 0.98 and blood sugar is 197. Calcium 7.9. 07/10/2022 Patient is seen and evaluated in follow-up today with pulmonary and cardiology following. Patient continues to have shortness of breath and maintained on oxygen with pulmonary following and patient is receiving IV ceftriaxone and has finished a Zithromax. Patient is on Coumadin with pharmacy to dose and also being maintained on IV Lasix with dose being adjusted to 40 mg twice daily and will continue. Patient does continue on IV steroids and would recommend monitoring Accu-Cheks before meals and at bedtime and use sliding scale as needed. Patient does not normally wear oxygen in the outpatient setting and recommended wean FiO2 as tolerated and will evaluate for possible home O2 requirements. Patient is currently afebrile, denies chest pain or palpitations. Patient is reporting that she is eating with occasional nausea with no vomiting noted. Encouraged increase activity as tolerated. 07/11/2022 Patient is seen and evaluated in follow-up today currently maintained on IV Lasix and kidney function stable and diuresing well with cardiology and pulmonary following closely. Patient also maintained on IV steroids along with breathing treatments and 3 L of oxygen via nasal cannula. Patient continues to report a junky cough although reports is having some improvements in her shortness of breath. Patient reports not a significant improvement. Patient is afebrile maintained on antibiotics and will continue for now. Patient denies worsening shortness of breath, chest pains, or palpitations. No reports of nausea or vomiting and patient is tolerating diet. Encouraged increased activity as tolerated. Recommend follow-up labs to monitor electrolytes and kidney functions closely. 07/12/2022 Patient is seen and evaluated in follow-up today and is maintained on telemetry monitoring with pulmonary and cardiology following. Patient reports there was an episode of atrial for ablation with RVR and cardiology was notified and given an extra dose of metoprolol and is currently sinus rhythm. Patient continues to report shortness of breath with wheezing and crackles noted. Patient is continued on IV steroids along with breathing treatments and pulmonary is following closely. Patient reports she feels quite frustrated with not getting better and wants to go home. Her follow-up LENNY for possible watchman device has been rescheduled. Patient is currently afebrile with no reports of chest pain or palpitations. No reports of nausea vomiting and patient tolerating diet. Encouraged oral intake. 07/13/2022 Patient is seen in follow-up this morning continues to be short of breath with wheezing and bronchospastic. Patient is maintained on inhalers along with breathing treatments, IV steroids, IV ceftriaxone along with IV Lasix with pulmonary and cardiology following closely. Patient is continued on 3 L via nasal cannula and reports does not wear any oxygen at home. Patient appears winded during conversation and takes multiple breaks to catch her breath. Will follow up on chest x-ray in the a.m. Patient is currently afebrile with no reports of chest pain or palpitations. Patient continues with a cough with difficulty expectorating any phlegm. No reports of nausea vomiting and patient is tolerating diet encourage small frequent meals. Patient is weak and with prolonged hospitalization would recommend possible physical therapy evaluation. Patient's blood sugars being monitored with Accu-Cheks and has sliding scale and will continue with current regimen. 07/14/2022 Patient is currently resting in the bed. Awake alert and oriented x3. Currently requiring 2 L oxygen via nasal cannula. Still complains of shortness of breath and tightness. Bilateral wheezing and scattered rhonchi especially in the basilar on physical exam. No complaints of chest pain. No nausea vomiting abdominal pain or diarrhea. Tolerating oral diet. Was also complaining of constipation. Patient is being continued on IV Solu-Medrol 60 mg every 6 hourly and is also on Lasix 40 mg every 12 IV. Pulmonary and cardiology is on board. Most recent Laboratory data reviewed. 07/15/2022 Patient states that she feels better today. Breathing status is improving. Requiring oxygen at 2 L via nasal cannula. No complaints of chest pain. Less bronchospastic today. Otherwise patient is being continued on Solu-Medrol 60 mg every 6 hourly patient is also on Lasix 40 mg every 12. Laboratory showed WBC 9.3 hemoglobin 14.1 platelets 127 INR 2.8 BUN 15 creatinine 1.14 and blood sugar is 235. Patient will be started on insulin regimen. 07/16/2022 Patient is seen and evaluated and follow-up this morning with cardiology and pulmonary following. Patient is maintained on IV steroids along with breathing treatments and weaning as tolerated down to 2 L via nasal cannula. Patient also maintained on IV Lasix and continues to have lower extremity edema and continued shortness of breath. Kidney functions are being monitored and creatinine trending down. Patient is maintained on Coumadin with pharmacy to dose and INR was 3.0 today. Recommend monitoring INR levels closely. Patient is requiring assistance with getting up and will add PT/OT therapy for evaluation. Patient reports she will be going home once stabilized and discharged. Patient is currently afebrile with no reports of chest pain or palpitations. Patient continues to report shortness of breath although no worse. Patient has had prolonged hospitalization extremely slow to improve. Will follow-up labs in the a.m. 07/17/2022 Patient is seen and evaluated in follow-up today with pulmonary and cardiology following. Patient has been switched to oral Lasix elbow continues to have significant lower extremity edema with shortness of breath and overload. We'll transition Lasix back to IV at 60 mg twice a day and follow-up with repeat labs. Current creatinine is 1.2. Patient reports is making urine but unsure how much in intake and output is not being documented strictly. Patient did have some increased abdominal distention and reports not having much of bowel movements will order abdominal x-ray and follow-up chest x-ray from today is pending. Patient is currently afebrile and denies chest pain or palpitations. No reports of nausea or vomiting and patient is tolerating diet. 07/18/2022 Patient is seen in follow-up this morning continues to report shortness of breath and maintained on 2 L via nasal cannula. Cardiology following recommending transitioning back to oral Lasix although pulmonary has continued with IV Lasix for continued lower extremity edema. Will add compression stockings as well. Patient does continue with weakness and has had prolonged hospitalization will consult PT/OT therapy and discuss again further with case management along with patient about possible ECF. Patient reports she will be returning home although given her significant comorbidities and prolonged ho spitalization patient may benefit from ECF for continued strength and mobility prior to returning home. Patient is currently afebrile denies chest pain or palpitations. Patient is tolerating oral intake and was continued on IV steroids which are being transitioned to oral prednisone. 07/19/2022 Patient is seen and evaluated in follow-up this morning currently sitting up in the chair with at bedside. Patient is continued on 2 L via nasal cannula and patient reports dyspnea although feels somewhat improved. Patient is very slow to progress and is continued on breathing treatments and has been transitioned oral steroids. Patient's blood sugars elevated and will increase long-acting and continue sliding scale monitor Accu-Cheks before meals and at bedtime. Patient also continues on IV Lasix although having some worsening in kidney functions and nephrology was consulted. Recommend fluid restrictions and awaiting abdominal ultrasound. Patient will be continued on IV Lasix and attempted CAMRYN hose although unable to tolerate. Patient does continue with bilateral lower extremity edema 2+ pitting. Afebrile with no reports of nausea or vomiting noted. Patient continues to report shortness of breath and denies chest pain or palpitations. 07/20/2022 Patient is seen and evaluated in follow-up this morning currently getting up to work with physical therapy. Patient does continue with significant weakness and reports she would like to be held to return home. Case management is following in the event patient does agree to go to rehab. Patient also continues on 2 L via nasal cannula and does not wear oxygen outpatient. Patient being followed by cardiology along with pulmonary and nephrology. Patient does continue with significant lower extremity edema and is being started on IV Lasix drip and also continued with metolazone. patient was noted to have ascites noted on imaging of the abdomen. Patient is afebrile report shortness of breath with exertion although reports is somewhat improved and denies chest pain or palpitations. Patient is tolerating diet although having some tongue and mouth pain. Appears to be oral thrush and will add nystatin swish and swallow. Recommend continue monitoring Accu-Cheks before meals and at bedtime and continue with current medication regimen. Review of systems: Constitutional: no reports of fatigue today, no fever, or chills Cardiovascular: No reports of chest pain or palpitations Respiratory: Reports of continued shortness of breath and cough which she feels is slowly improving GI: No reports of nausea, vomiting, or diarrhea : No reports of dysuria or retention Neurovascular: reports of generalized weakness All medications have been reviewed Active Medications Acetaminophen (Acetaminophen Tab 325 Mg Tab) 650 mg PO Q6H PRN PRN Reason: Mild Pain or Fever > 100.5 Last Admin: 07/17/22 12:50 Dose: 325 mg Albuterol/Ipratropium (Ipratropium-Albuterol 3 Ml Neb) 3 ml INHALATION RT-QID [facility] Last Admin: 07/20/22 20:49 Dose: 3 ml Ascorbic Acid (Ascorbic Acid 500 Mg Tab) 1,000 mg PO DAILY [facility] Last Admin: 07/20/22 09:18 Dose: 1,000 mg Budesonide (Budesonide 1 Mg/2 Ml Nebu) 1 mg INHALATION RT-BID [facility] Last Admin: 07/20/22 20:49 Dose: 1 mg Cholecalciferol (Cholecalciferol 25 Mcg (1000 Iu) Tablet) 25 mcg PO DAILY [facility] Last Admin: 07/20/22 09:18 Dose: 25 mcg Citalopram Hydrobromide (Citalopram Hydrobromide 20 Mg Tab) 20 mg PO HS [facility] Last Admin: 07/20/22 20:21 Dose: 20 mg Dextrose/Water (Dextrose 50% Syringe 50 Ml) 25 ml IVP PER PROTOCOL PRN; Pr otocol PRN Reason: Hypoglycemia Dextrose/Water (Dextrose 50% Syringe 50 Ml) 50 ml IVP PER PROTOCOL PRN; Protocol PRN Reason: Hypoglycemia Ferrous Sulfate (Ferrous Sulfate 325 Mg Tab) 325 mg PO Q48H [facility] Last Admin: 07/20/22 09:19 Dose: 325 mg Furosemide 100 mg/ Sodium (Chloride) 100 mls @ 10 mls/hr IV .Q10H [facility] Last Admin: 07/20/22 20:21 Dose: 10 mg/hr, 10 mls/hr Diltiazem HCl 125 mg/ Sodium (Chloride) 125 mls @ 10 mls/hr IV .[id number] [facility] Last Admin: 07/21/22 05:16 Dose: 10 mg/hr, 10 mls/hr Insulin Aspart (Insulin Aspart (Novolog) 100 Unit/Ml Vial) 0 unit SQ ACHS [facility]; Protocol Last Admin: 07/20/22 20:21 Dose: 2 unit Insulin Detemir (Insulin Detemir (Levemir) 100 Unit/Ml Syr) 15 unit SQ BID@0700,2100 [facility] Last Admin: 07/20/22 20:21 Dose: 15 unit Levothyroxine Sodium (Levothyroxine 50 Mcg Tab) 50 mcg PO DAILY@0630 [facility] Last Admin: 07/20/22 06:26 Dose: 50 mcg Magnesium Oxide (Magnesium Oxide 400 Mg Tab) 400 mg PO DAILY [facility] Last Admin: 07/20/22 09:19 Dose: 400 mg Metolazone (Metolazone 5 Mg Tab) 5 mg PO DAILY [facility] Last Admin: 07/20/22 09:19 Dose: 5 mg Metoprolol Tartrate (Metoprolol Tartrate 50 Mg Tab) 50 mg PO BID [facility] Last Admin: 07/20/22 20:22 Dose: 50 mg Miscellaneous Information (Warfarin Per Pharmacy) 0 each MISCELLANE DIRECTED PRN PRN Reason: PHARMACY DOSING WARFARIN Naloxone HCl (Naloxone 0.4 Mg/Ml 1 Ml Vial) 0.2 mg IVP Q2M PRN PRN Reason: Opioid Reversal Nystatin (Nystatin 100,000 Unit/Ml Susp 500,000 Unit/5 Ml Cup) 500,000 unit PO QID [facility]; Protocol Last Admin: 07/20/22 20:22 Dose: 500,000 unit Pantoprazole Sodium (Pantoprazole 40 Mg Tablet) 40 mg PO AC-BRKFST [facility] Last Admin: 07/20/22 06:28 Dose: 40 mg Pramipexole Dihydrochloride (Pramipexole 0.125 Mg Tab) 0.125 mg PO BID [facility] Last Admin: 07/20/22 20:22 Dose: 0.125 mg Prednisone (Prednisone 20 Mg Tab) 40 mg PO DAILY [facility] Last Admin: 07/20/22 09:19 Dose: 40 mg Senna (Sennosides 8.6 Mg Tab) 8.6 mg PO DAILY PRN PRN Reason: Constipation Last Admin: 07/15/22 21:02 Dose: 8.6 mg Spironolactone (Spironolactone 25 Mg Tab) 25 mg PO DAILY [facility] Last Admin: 07/20/22 09:19 Dose: 25 mg PHYSICAL EXAMINATION: Patient is sitting up at the side of the bed, no acute distress, alert and oriented. Morbidly obese. Currently continued on 2 L HEENT: Normocephalic. Neck is supple. Pupils reactive. Nostrils clear. Oral cavity is moist. Neck reveals no JVD, carotid bruits, or thyromegaly. CHEST EXAMINATION: Trachea is central. Symmetrical expansion. Bilateral diffuse rhonchi with some faint crackles at the bases. Bibasilar diminished sounds. Nonlabored breathing. CARDIAC: S1, S2 are muffled, irregular ABDOMEN: Soft. Edematous, obese, Bowel sounds present. Nontender. No organomegaly. No abdominal bruits. Extremities: 2+ bilateral pedal edema. No clubbing or cyanosis Neurologically awake, alert, oriented. Able to move all extremities. No gross focal deficits noted. Diffusely weak Skin: No rash or skin lesions. Psychiatric: Cooperative. Non-suicidal Musculoskeletal: No joint swelling or deformity. Normal range of motion. Assessment: Worsening shortness of breath which is multifactorial, due to acute CHF exacerbation as well as moderate persistent asthma Moderate persistent asthma with exacerbation Mouth and tongue pain, secondary to oral candidiasis and will add nystatin swish and swallow Acute CHF with diastolic dysfunction with continued bilateral lower extremity edema being started on IV Lasix drip for 2122 Acute tracheobronchitis and possible pneumonia, pneumonia ruled out Obstructive sleep apnea not on CPAP at home Paroxysmal atrial fibrillation on anticoagulation with Coumadin. Status post episode of atrial fibrillation with RVR on 07/12/2022, currently rate controlled Left atrial thrombus and currently being anticoagulated with warfarin. Patient was supposed to get LENNY, Watchman procedure as an outpatient at [facility] and will follow-up outpatient Hypertension Morbid obesity with BMI of 40.7 Diabetes type 2, uncontrolled with hyperglycemia, also steroid effect History of nonalcoholic hepatic steatosis History of GERD status post Ambrose fundoplication Hypothyroidism Right ovarian mass currently under investigation as an outpatient Prior history of smoking quit 36 years ago History of subdural hematoma in January 2022 Coumadin dosing GI prophylaxis No code Plan: Patient is currently on 2 L nasal cannula oxygen. Weaning FiO2 as tolerated with pulmonary and cardiology following. Patient does not normally wear oxygen at home and will require 2 L via nasal cannula on discharge to manage COPD Nephrology and cardiology following as well maintained on IV Lasix although continues with significant edema and ascites noted throughout the abdomen and b aba transitioned to IV Lasix drip per nephrology and is continued on metolazone Recommend monitoring strict intake and output and continue with fluid restrictions. Patient is receiving breathing treatments and steroids And transitioned to oral prednisone with pulmonary following Recommend continue monitoring Accu-Cheks before meals and at bedtime and use sliding scale along with long-acting Coumadin monitoring with pharmacy to dose, currently therapeutic Patient was supposed to follow-up with cardiology as an outpatient for LENNY with possible Watchman procedure at [facility] on 07/13 and was canceled due to being hospitalized. Will need to be rescheduled once respiratory status is more stable Encouraged increased activity as tolerated and encouraged oral intake. Patient has had prolonged hospitalization with weakness. Patient plans on returning home with family once stabilized and discharged although given her prolonged hospitalization and significant weakness patient may benefit from ECF and will discuss further with case management as well as patient about possible rehab [facility] or to returning home. Patient is working with PT/OT therapy daily Will follow-up with labs in the a.m. The impression and plan of care has been dictated by Melissa Diaz, Nurse Practitioner as directed. Dr. Meri MD I have performed a history and examination and MDM of this patient, discussed the same with the dictator, and agree with the dictator's assessment and plan as written ,documented as a scribe. Based on total visit time, I have performed more than 50% of the visit. Objective - Vital Signs Vital signs: Vital Signs Temp 98.1 F 07/20/22 07:18 Pulse 80 07/20/22 08:40 Resp 18 07/20/22 08:36 BP 150/75 07/20/22 07:18 Pulse Ox 95 07/20/22 08:24 FiO2 29 07/09/22 08:00 Intake & Output 07/19/22 07/20/22 07/20/22 18:59 06:59 18:59 Intake Total 960 150 118 Output Total 400 700 Balance 560 -550 118 Intake: Oral 960 150 118 Output: Urine 400 700 Other: Voiding Method External Catheter External Catheter External Catheter # Bowel Movements 1 - Labs CBC & Chem 7: 07/16/22 08:22 07/20/22 08:43 Labs: Abnormal Lab Results - Last 24 Hours (Table) 07/19/22 07/19/22 07/19/22 Range/Units 07:46 07:46 07:46 PT 26.5 H (9.0-12.0) sec INR 2.7 H (<1.2) Sodium 136 L (137-145) mmol/L Chloride 96 L (98-107) mmol/L Carbon Dioxide 35 H (22-30) mmol/L BUN 81 H (7-17) mg/dL Creatinine 1.49 H (0.52-1.04) mg/dL Glucose 218 H (74-99) mg/dL POC Glucose (mg/dL) (70-110) mg/dL Calcium 8.3 L (8.4-10.2) mg/dL Magnesium 2.4 H (1.6-2.3) mg/dL Albumin 2.7 L (3.5-5.0) g/dL 07/19/22 07/19/22 07/19/22 Range/Units 11:43 16:15 20:01 PT (9.0-12.0) sec INR (<1.2) Sodium (137-145) mmol/L Chloride (98-107) mmol/L Carbon Dioxide (22-30) mmol/L BUN (7-17) mg/dL Creatinine (0.52-1.04) mg/dL Glucose (74-99) mg/dL POC Glucose (mg/dL) 315 H 321 H 243 H (70-110) mg/dL Calcium (8.4-10.2) mg/dL Magnesium (1.6-2.3) mg/dL Albumin (3.5-5.0) g/dL 07/20/22 07/20/22 Range/Units 06:21 08:43 PT (9.0-12.0) sec INR (<1.2) Sodium 134 L (137-145) mmol/L Chloride 95 L (98-107) mmol/L Carbon Dioxide 37 H (22-30) mmol/L BUN 86 H (7-17) mg/dL Creatinine 1.58 H (0.52-1.04) mg/dL Glucose 190 H (74-99) mg/dL POC Glucose (mg/dL) 163 H (70-110) mg/dL Calcium 8.3 L (8.4-10.2) mg/dL Magnesium (1.6-2.3) mg/dL Albumin (3.5-5.0) g/dL
[2022-07-21 06:13] LABS: Glucose,Whole Blood 146 mg/dL (70-110)
[2022-07-21] MEDS: INSULIN ASPART (NovoLOG) 100 UNIT/ML VIAL SQ SCH ×4 (06:21→20:20)
[2022-07-21] MEDS: LEVOTHYROXINE 50 MCG TAB PO SCH (06:26)
[2022-07-21] MEDS: INSULIN DETEMIR (LEVEMIR) 100 UNIT/ML SYR SQ SCH ×2 (06:26→20:20)
[2022-07-21] MEDS: PANTOPRAZOLE 40 MG TABLET PO SCH (06:26)
[2022-07-21] MEDS: FUROSEMIDE 100 MG in SODIUM CHLORIDE 0.9% 90 ML IV SCH ×2 (06:27→12:23)
[2022-07-21] MEDS: MAGNESIUM OXIDE 400 MG TAB PO SCH (08:01)
[2022-07-21] MEDS: SPIRONOLACTONE 25 MG TAB PO SCH (08:01)
[2022-07-21] MEDS: metOLazone 5 MG TAB PO SCH (08:01)
[2022-07-21] MEDS: METOPROLOL TARTRATE 50 MG TAB PO SCH ×2 (08:01→20:20)
[2022-07-21] MEDS: NYSTATIN 100,000 UNIT/ML SUSP 500,000 UNIT/5 ML CUP PO SCH ×4 (08:01→20:20)
[2022-07-21] MEDS: PRAMIPEXOLE 0.125 MG TAB PO SCH ×2 (08:01→20:20)
[2022-07-21] MEDS: predniSONE 20 MG TAB PO SCH (08:01)
[2022-07-21] MEDS: CHOLECALCIFEROL 25 MCG (1000 IU) TABLET PO SCH (08:01)
[2022-07-21] MEDS: ASCORBIC ACID 500 MG TAB PO SCH (08:01)
[2022-07-21] MEDS: IPRATROPIUM-ALBUTEROL 3 ML NEB INHALATION SCH ×4 (08:14→21:09)
[2022-07-21] MEDS: BUDESONIDE 1 MG/2 ML NEBU INHALATION SCH ×2 (08:14→21:09)
[2022-07-21 09:27] LABS: INR 2.3 (<1.2); Prothrombin Time 22.1 sec (9.0-12.0)
[2022-07-21 09:28] LABS: Albumin 2.6 g/dL (3.5-5.0); Calcium 8.7 mg/dL (8.4-10.2); Magnesium 2.2 mg/dL (1.6-2.3); Potassium 4.4 mmol/L (3.5-5.1); Total Bilirubin 5.7 mg/dL (0.2-1.3); Total Protein 5.2 g/dL (6.3-8.2)
--- NOTE | 2022-07-21 11:08 | P.PN ---
Subjective Patient is seen in follow-up for acute kidney injury. Renal function worse from diuresis. Urine output better. She is on Lasix drip and metolazone. Urine output improved. Still quite edematous. Hemodynamically stable. On 2 L nasal cannula. Vital signs are stable. General: No acute distress. HEENT: Head exam is unremarkable. On nasal cannula. LUNGS: No audible rhonchi or wheezes. HEART: Rate and Rhythm are regular. ABDOMEN: Nontender. EXTREMITITES: 2+ edema. Objective - Vital Signs Vital signs: Vital Signs Temp 97.6 F 07/21/22 08:00 Pulse 100 07/21/22 08:28 Resp 22 07/21/22 08:00 BP 103/61 07/21/22 08:00 Pulse Ox 98 07/21/22 08:17 FiO2 29 07/09/22 08:00 Intake & Output 07/20/22 07/21/22 07/21/22 18:59 06:59 18:59 Intake Total 308 182.667 360 Output Total 500 1600 400 Balance -192 -1417.333 -40 Weight 103 kg Intake: IV 10 Invasive Line 4 10 Intake, IV Titration 182.667 Amount Furosemide 100 mg In 182.667 Sodium Chloride 0.9% 90 ml @ 10 MG/HR 10 mls/hr IV .Q10H [facility] Rx#: [id number] Oral 298 360 Output: Urine 500 1600 400 Other: Voiding Method External Catheter External Catheter External Catheter # Bowel Movements 1 - Labs CBC & Chem 7: 07/16/22 08:22 07/21/22 08:26 Labs: Abnormal Lab Results - Last 24 Hours (Table) 07/20/22 07/20/22 07/20/22 Range/Units 11:42 16:33 20:10 PT (9.0-12.0) sec INR (<1.2) Sodium (137-145) mmol/L Chloride (98-107) mmol/L Carbon Dioxide (22-30) mmol/L BUN (7-17) mg/dL Creatinine (0.52-1.04) mg/dL Glucose (74-99) mg/dL POC Glucose (mg/dL) 170 H 257 H 229 H (70-110) mg/dL Total Bilirubin (0.2-1.3) mg/dL AST (14-36) U/L ALT (4-34) U/L Alkaline Phosphatase (38-126) U/L Total Protein (6.3-8.2) g/dL Albumin (3.5-5.0) g/dL 07/21/22 07/21/22 07/21/22 Range/Units 06:11 08:26 08:26 PT 22.1 H (9.0-12.0) sec INR 2.3 H (<1.2) Sodium 134 L (137-145) mmol/L Chloride 91 L (98-107) mmol/L Carbon Dioxide 39 H (22-30) mmol/L BUN 87 H (7-17) mg/dL Creatinine 1.82 H (0.52-1.04) mg/dL Glucose 148 H (74-99) mg/dL POC Glucose (mg/dL) 146 H (70-110) mg/dL Total Bilirubin 5.7 H (0.2-1.3) mg/dL AST 68 H (14-36) U/L ALT 88 H (4-34) U/L Alkaline Phosphatase 259 H (38-126) U/L Total Protein 5.2 L (6.3-8.2) g/dL Albumin 2.6 L (3.5-5.0) g/dL Assessment and Plan Plan: Assessment: 1. Acute kidney injury secondary to vasomotor nephropathy secondary to cardiorenal syndrome. Creatinine 1.82 today. UA benign. No hydronephrosis noted in the left kidney. Questionable dilated upper collecting system. 2. Acute on chronic diastolic CHF with mild to moderate tricuspid and aortic regurgitation. 3. Volume overload. Ascites noted on ultrasound. 4. History of liver cirrhosis. 5. History of COPD. 6. Diabetes mellitus. Plan: Maintain Lasix drip. Maintain metolazone. 1500 mL fluid restriction. Low-salt diet. Avoid nephrotoxins. Continue to monitor renal function and urine output. Will also try to get paracentesis done.
[2022-07-21 11:28] LABS: Glucose,Whole Blood 173 mg/dL (70-110)
--- NOTE | 2022-07-21 12:37 | P.PN ---
Subjective Progress Note Date: 07/21/22 I'm seeing this patient in new consultation today 07/09/2022 for progressive shortness of breath starting yesterday. This is a 77-year-old white female with a significant medical history for congestive heart failure, moderate persistent asthma, atrial fibrillation, left atrial appendage thrombus, diabetes mellitus type 2, hypertension, hypothyroidism, nonalcoholic cirrhosis of the liver, brain bleed, mild obstructive sleep apnea, remote history of smoking 36 years ago. Patient presented yesterday for difficulty breathing that started on Saturday. Patient reports shortness breath especially when exerting herself or lying flat, wheezing, fluid retention in her lower extremities, weight gain of about 3 pounds, and heart palpitations. She also reports some upper respiratory tract infection symptoms such as runny nose, cough with brown sputum production, and chills. She denies any subjective fevers or chest pain. Patient does follow with Dr. Gupta in the office for management of her moderate persistent asthma and mild obstructive sleep apnea. Patient patient states that she takes alb uterol and Symbicort on an outpatient basis. She also follows with a oil field caser from [place], and has a planned LENNY and watchman procedure this Saturday. Patient is currently resting in bed, on AIRVO 35 L and 30% high flow cannula, in no acute distress. Chest x-ray on arrival showed mild cardiomegaly with mild diffuse interstitial opacities. No obvious focal consolidation. NT proBNP was mildly elevated at 1700. CBC on arrival shows a non-elevated WBC count of 3.9, hemoglobin 12, hematocrit 37, platelets 145,000. Patient's INR on arrival was sub-therapeutic at 1.6. Patient does take Coumadin on outpatient basis. Patient has reported some minimal rectal bleeding on and Saturday of this previous week. No bleeding since reported. BMP shows a sodium 137, potassium 4.2, chloride 104, serum CO2 31, BUN 23, creatinine 0.86, glucose 113. Lactic acid 1.5. LFTs mildly elevated. Negative for influenza, RSV, COVID-19. Pro-calcitonin levels pending. Patient is currently receiving bronchodilators and IV Solu-Medrol. She is also receiving empiric antibiotics for community associated pneumonia. Remains afebrile. Vital signs are stable. Progress note dated 07/10/2022. 7-year-old patient seen for shortness of breath, in room 374, secondary to asthma exacerbation, and diastolic CHF. Currently, the patient's on 3 L of oxygen. She's not receiving any IV fluids. Clinically, she feels better. White count 16.5, hemoglobin 12.8, hematocrit 40, and platelet count is normal. PTT is 22 with an INR of 2.2. Sodium, potassium, chloride, CO2, and anion gap, are all normal. BUN is 30 with a creatinine of 1.14. Chest x-ray shows a pattern of improving volume status. Progress note dated 07/11/2022. 77-year-old female seen today in room 374. The patient was admitted with a diagnosis of asthma exacerbation, and diastolic CHF. The patient was to have a cardiac procedure done on Saturday, and an outside hospital. The patient should not have that done at this time. She remains on 2 L of oxygen. No IV fluids. Her daughter is in the room with her. The patient's only feeling marginally better. I did mention to the oil field caser here, at her procedure should be canc eled. White count 10.5, hemoglobin 12.5, hematocrit 39.5, with a normal platelet count. PT 25.6 with an INR 2.6. Sodium 136, potassium 4.2, chlorides 100, CO2 31, BUN 38, creatinine 1.10. Progress note dated 07/12/2022. 77-year-old patient seen in room 374. The patient states that she had a bad night last night, apparently developing atrial fibrillation. She is also quite bronchospastic and wheezy. Currently, she is on 2 L of oxygen. She's not receiving any IV fluids. Saturations are 97%. She was receiving a breathing treatment today, when we saw her in the room. No new labs today to report. Progress note dated 07/13/2022. 77-year-old female seen in room 374. The patient complains of being short of breath, and quite bronchospastic. She feels like she can't cough up phlegm. Currently, she remains on 2 L of oxygen. She's not receiving any IV fluids. She remains on corticosteroids, inhaled corticosteroids, as well as albuterol sulfate and ipratropium bromide. She apparently cannot tolerate long-acting beta agonist, which is why she's not receiving them. PTT 26.9, INR 2.8. Sodium 137, potassium 4.6, chlorides 100, CO2 36, BUN 44, and creatinine 1.10. Glucose 229. Calcium is 8.2. Progress note dated 07/14/2022. 77-year-old female seen again in room 374. The patient complains of tightness in her chest, shortness of breath, and bronchospasm. She's having a hard time coughing up any phlegm. She's currently on 2 L. She certainly no worse. She's not receiving any IV fluids. No new labs today other than a PT of 26.9 and an INR of 2.8. Glucose 252. Progress note dated 07/15/2022. 77-year-old female seen today in room 374. Today she sitting up in the chair. Currently, she is on 2 L of oxygen. She's not receiving IV fluids. She does feel a bit better today. She still has shortness of breath, chest tightness, and cough, with bronchospasm. Labs today include a white count 9.3, hemoglobin 14.2, hematocrit 43.8, and a platelet count of 127,000. PTT is 27.1, with an INR of 2.8. Sodium 137, potassium 5.1, chlorides 97, CO2 35, BUN 52, and cr eatinine 1.14. Progress note dated 07/16/2022. 77-year-old female seen along with her daughter in room 374. The patient remains on 2 L of oxygen. She's feeling better and breathing better. She ce rtainly much less bronchospastic. She denies any chest pain or chest discomfort. Laboratory data includes a white count 11.1, hemoglobin 13.8, hematocrit 43, and a platelet count of 112,000. PTT 30.6, INR 3.1. Sodium 136, potassium 5.1, chlorides 98, CO2 33, BUN 56, creatinine 1.12. Glucose 241. Calcium 8.5. On today's evaluation of 07/17/2022, the patient is still complaining of shortness of breath. On examination he remains bronchospastic and wheezy. She has been hospital for more than a week being treated for an acute COPD exacerbation tracheobronchitis. Chest x-ray was done at time of admission showed no evidence of any acute pneumonia. He is on a combination of bronchodilators and she is also on IV Medrol 60 mg every 6 hours. She has preserved LV function with an EF of around 55-60%. She has nonobstructive coronary artery disease. She has paroxysmal A. fib and the patient is currently on anticoagulation with a therapeutic PT/INR. She has diabetes mellitus type 2, hypertension hyperlipidemia, she also had a INR of 3.1. BUN is 61 with a creatinine of 1.2. The pro-calcitonin level was at 0.09. Her viral serology came back all negative. She is currently on oxygen at 2 L/m nasal cannula with a pulse ox of 95%. On today's evaluation of 07/18/2022, the patient is slightly improved. She still bronchospastic and wheezy although less. She has increased edema lower extremities pH is also complaining of generalized fatigue and weakness. BUN is at 70 with a creatinine of 1.2. Sodium is at 136 with a potassium level IV.8. The patient also has INR of 3.3. The patient is currently on warfarin. She is on bronchodilators. She is also taking Lasix 40 mg by mouth twice a day. On 07/19/2022, the patient is feeling slightly better. Continues to have significant amount of edema lower extremities pH is currently on IV Lasix and she is receiving 40 mg every 12 hours. She is increasing her urine output. Echo documentation of the urine output is not available. However, today's evaluation, she continues to have significant amount of edema lower oximetry is bilaterally. I took her off the IV Solu-Medrol yesterday started on a prednisone burst taper and she is currently on 40 mg P she is also on bronchodilators. She is on Levemir insulin. Blood work from today shows a stable creatinine of 1.49 with a BUN of 81. The sodium was at 136. The potassi um levels at 5.0. She is therapeutic on her INR at 2.7. She is profoundly weak. She will need absolutely further rehabilitation once her condition is more stabilized. 07/20/2022, the patient is weak and lethargic. She continues to have significant amount of third spacing and edema in lower extremities bilaterally. The patient also has chronic kidney dysfunction. The patient was on IV Lasix and the patient has been negative fluid balance. Urine output has not been adequate however. The patient was seen by nephrology and the patient was started on Lasix of 10 mg an hour. On today's evaluation she has a BUN of 86 with a creatinine of 1.5. Sodiums of 134. Potassium level is 5.1. INR therapeutic at 2.9. The patient is on DuoNeb updrafts. She was taken off the IV Solu-Medrol started on a prednisone burst taper starting at 40 mg. 07/21/2022, patient remains on Lasix drip at 10 mg an hour. There is improvement in urine output. Zaroxolyn was added in combination with Lasix by nephrology. Continues to have significant amount of edema fluid overload. She has developed renal dysfunction there is ongoing eric in the creatinine which is up to 1.8 with a BUN of 87. Potassium levels at 4.4 with a sodium level of 134. Otherwise, rest or status remains unchanged. Still has some bronchus and wheezing and currently isn't on prednisone. She remains on oxygen at 2 L/m nasal cannula. She feels lethargic. Objective - Vital Signs Vital signs: Vital Signs Temp 97.6 F 07/21/22 08:00 Pulse 89 07/21/22 11:31 Resp 22 07/21/22 08:00 BP 103/61 07/21/22 08:00 Pulse Ox 98 07/21/22 08:17 FiO2 29 07/09/22 08:00 Intake & Output 07/20/22 07/21/22 07/21/22 18:59 06:59 18:59 Intake Total 308 182.667 419.333 Output Total 500 1600 400 Balance -192 -1417.333 19.333 Weight 103 kg Intake: IV 10 Invasive Line 4 10 Intake, IV Titration 182.667 59.333 Amount Furosemide 100 mg In 182.667 59.333 Sodium Chloride 0.9% 90 ml @ 10 MG/HR 10 mls/hr IV .Q10H [facility] Rx#: [id number] Oral 298 360 Output: Urine 500 1600 400 Other: Voiding Method External Catheter External Catheter External Catheter # Bowel Movements 1 - Exam No acute distress, oriented 3. Currently on 2 L. Minimal conversational dyspnea. HEENT examination is grossly unremarkable. Neck supple. Full range of motion. No adenopathy thyromegaly or neck vein dis tention. Cardiovascular examination reveals regular rhythm rate. S1-S2 normal. No S3 or S4. No discernible murmur noted. Heart rate 86 bpm. Heart sounds are distant. Lungs reveal scattered coarse bilateral expiratory rhonchi. Expiratory wheezes are noted. Breath sounds are equal bilaterally. No crackles. Breath sounds are diminished throughout. Saturations are 95 % on 2 L. Abdomen soft bowel sounds are heard. No masses or tenderness. Extremities are intact. No cyanosis clubbing or edema. Skin is without rash or lesion. Neurologic examination is brief but nonfocal. - Labs CBC & Chem 7: 07/16/22 08:22 07/21/22 08:26 Labs: Abnormal Lab Results - Last 24 Hours (Table) 07/20/22 07/20/22 07/21/22 Range/Units 16:33 20:10 06:11 PT (9.0-12.0) sec INR (<1.2) Sodium (137-145) mmol/L Chloride (98-107) mmol/L Carbon Dioxide (22-30) mmol/L BUN (7-17) mg/dL Creatinine (0.52-1.04) mg/dL Glucose (74-99) mg/dL POC Glucose (mg/dL) 257 H 229 H 146 H (70-110) mg/dL Total Bilirubin (0.2-1.3) mg/dL AST (14-36) U/L ALT (4-34) U/L Alkaline Phosphatase (38-126) U/L Total Protein (6.3-8.2) g/dL Albumin (3.5-5.0) g/dL 07/21/22 07/21/22 07/21/22 Range/Units 08:26 08:26 11:27 PT 22.1 H (9.0-12.0) sec INR 2.3 H (<1.2) Sodium 134 L (137-145) mmol/L Chloride 91 L (98-107) mmol/L Carbon Dioxide 39 H (22-30) mmol/L BUN 87 H (7-17) mg/dL Creatinine 1.82 H (0.52-1.04) mg/dL Glucose 148 H (74-99) mg/dL POC Glucose (mg/dL) 173 H (70-110) mg/dL Total Bilirubin 5.7 H (0.2-1.3) mg/dL AST 68 H (14-36) U/L ALT 88 H (4-34) U/L Alkaline Phosphatase 259 H (38-126) U/L Total Protein 5.2 L (6.3-8.2) g/dL Albumin 2.6 L (3.5-5.0) g/dL Assessment and Plan Plan: Acute exacerbation of asthma, as well as mild exacerbation of diastolic CHF, leading to hypoxemic respiratory failure. The pro-calcitonin level was normal. The chest x-ray initially was within normal limits and the patient is on a combination of bronchodilators and steroids. The vital serology was also negative. Improvement is ongoing but it's quite slow. Echocardiogram shows a preserved LV function Extensive lower extremity edema, currently on IV Lasix with some interval worsening in the BUN and a creatinine on today's blood work. History of paroxysmal atrial fibrillation. The INR is therapeutic at this point in time Increased lower extremity edema History of subdural hematoma, January 2022. History of rectal bleeding. Type 2 diabetes mellitus. Essential hypertension. Morbid obesity. Nonalcoholic steatohepatitis. Gastroesophageal reflux disease, without esophagitis, status post Ambrose fundoplication. History of hypothyroidism. Mild obstructive sleep apnea syndrome. Previous history of tobacco use. Right ovarian mass. Plan Continues to have signs of fluid overload Continue Lasix drip at 10 mg an hour, and Zaroxolyn was also added Monitor renal function Monitor urine output Account Assistant on the case Continue bronchodilators and steroids and the patient is on DuoNeb neb in addition to Perforomist and Pulmicort updrafts twice a day Provide the case prednisone burst taper Ultrasound the kidneys was done by nephrology and the patient has some limited hydronephrosis on the right, no hydronephrosis is on the left, some ascites also demonstrated in the right upper quadrant area. Monitor lower extremity edema fluid balance Account Assistant on the case Repeat electrolytes in the morning. Monitor PT/INR. Will follow.
--- NOTE | 2022-07-21 15:21 | P.PN ---
Subjective Progress Note Date: 07/21/22 This is a 77 year old female patient with known history of intracranial bleed while on anticoagulation for paroxysmal atrial fibrillation, history of CVA as well with good recovery, previous MMA embolization, type 2 diabetes, hypertension, hyperlipidemia, noncritical coronary artery disease on catheterization November. She is a patient of Dr. ELVIRA Patton and follows with Dr. Lindsey and scheduled for watchman procedure on July 13. Patient presented with increasing shortness of breath appears to be COPD exacerbation with bronchial asthma. A cardiogram was completed revealed normal LV systolic function with moderate MR, mild to moderate AI and mild to moderate TR. She remains on warfarin and pharmacy is dosing. 07/20/2022 She was seen and examined resting comfortably in a chair. She has been ordered to start Lasix drip by nephrology. She remains on metolazone. Her breathing is a bit better but she continues to have significant lower extremity edema. 07/21/2022 The patient was seen and examined resting in bed. Continues to be on Lasix drip per nephrology. Remains on metolazone. She feels her breathing is a bit better today but stills remains heavy at times. Continues to have significant lower extremity edema. Labs this morning showed BUN of 87 and creatinine 1.8 to from 86 and 1.58 respectively yesterday. Objective - Vital Signs Vital signs: Vital Signs Temp 98.1 F 07/21/22 12:00 Pulse 67 07/21/22 12:00 Resp 20 07/21/22 12:00 BP 108/63 07/21/22 12:00 Pulse Ox 95 07/21/22 12:00 FiO2 29 07/09/22 08:00 Intake & Output 07/20/22 07/21/22 07/21/22 18:59 06:59 18:59 Intake Total 308 182.667 899.333 Output Total 500 1600 700 Balance -192 -1417.333 199.333 Weight 103 kg Intake: IV 10 Invasive Line 4 10 Intake, IV Titration 182.667 59.333 Amount Furosemide 100 mg In 182.667 59.333 Sodium Chloride 0.9% 90 ml @ 10 MG/HR 10 mls/hr IV .Q10H [facility] Rx#: [id number] Oral 298 840 Output: Urine 500 1600 700 Other: Voiding Method External Catheter External Catheter External Catheter # Bowel Movements 1 - Exam GENERAL: Well-developed in no acute distress. NECK: Supple. No JVD or thyromegaly LUNGS: Respirations even and unlabored. Lungs with wheezing noted throughout and faint bibasilar crackles. HEART: Regular rate and rhythm. S1 and S2 heard. + systolic murmur. EXTREMITIES: Normal range of motion. No clubbing or cyanosis. Peripheral pulses intact. 2+ bilateral lower extremity edema - Labs CBC & Chem 7: 07/16/22 08:22 07/21/22 08:26 Labs: Abnormal Lab Results - Last 24 Hours (Table) 07/20/22 07/20/22 07/21/22 Range/Units 16:33 20:10 06:11 PT (9.0-12.0) sec INR (<1.2) Sodium (137-145) mmol/L Chloride (98-107) mmol/L Carbon Dioxide (22-30) mmol/L BUN (7-17) mg/dL Creatinine (0.52-1.04) mg/dL Glucose (74-99) mg/dL POC Glucose (mg/dL) 257 H 229 H 146 H (70-110) mg/dL Total Bilirubin (0.2-1.3) mg/dL AST (14-36) U/L ALT (4-34) U/L Alkaline Phosphatase (38-126) U/L Total Protein (6.3-8.2) g/dL Albumin (3.5-5.0) g/dL 07/21/22 07/21/22 07/21/22 Range/Units 08:26 08:26 11:27 PT 22.1 H (9.0-12.0) sec INR 2.3 H (<1.2) Sodium 134 L (137-145) mmol/L Chloride 91 L (98-107) mmol/L Carbon Dioxide 39 H (22-30) mmol/L BUN 87 H (7-17) mg/dL Creatinine 1.82 H (0.52-1.04) mg/dL Glucose 148 H (74-99) mg/dL POC Glucose (mg/dL) 173 H (70-110) mg/dL Total Bilirubin 5.7 H (0.2-1.3) mg/dL AST 68 H (14-36) U/L ALT 88 H (4-34) U/L Alkaline Phosphatase 259 H (38-126) U/L Total Protein 5.2 L (6.3-8.2) g/dL Albumin 2.6 L (3.5-5.0) g/dL Assessment and Plan Assessment: Acute COPD exacerbation Tracheobronchitis Bronchial asthma Acute on chronic congestive heart failure with preserved ejection fraction, EF 55-60% Nonobstructive coronary artery disease Left atrial thrombus with plan for watchman procedure-to be rescheduled Paroxysmal atrial fibrillation History of intracranial bleed History of CVA Hypertension Hyperlipidemia Diabetes mellitus type 2 Valvular heart disease Acute kidney injury, secondary to diuresis Plan: From Cardiology's perspective agree with Lasix IV drip per nephrology. Continue to monitor renal function, electrolytes, accurate I&O and daily weights. Pharmacy to dose Coumadin. Patient to follow-up at [facility] in regards to watchman procedure as an outpatient. Continue to follow the patient and provide further recommendations accordingly. MANAGER INTERMEDIATE note has been reviewed, I agree with a documented findings and plan of care. Patient was seen and examined.
[2022-07-21] MEDS: ACETAMINOPHEN TAB 325 MG TAB PO PRN (16:13)
[2022-07-21 16:31] LABS: Glucose,Whole Blood 208 mg/dL (70-110)
[2022-07-21] MEDS ORDERED: WARFARIN 0.5 MG TAB PO ONE (18:00)
[2022-07-21 20:10] LABS: Glucose,Whole Blood 244 mg/dL (70-110)
[2022-07-21] MEDS: CITALOPRAM HYDROBROMIDE 20 MG TAB PO SCH (20:20)
[2022-07-21] MEDS: ALPRAZolam 0.25 MG TAB PO PRN (22:15)
--- NOTE | 2022-07-22 04:53 | P.PN ---
Subjective Progress Note Date: 07/21/22 Patient is a 77-year-old female with a past medical history of COPD presents to ER with complaints of worsening shortness of breath for the past 7 days and weight gain about 3 pounds. Initial laboratory test showed WBC 3.9 hemoglobin 12.0 and platelets 145 BUN 23 and creatinine 0.86 AST 65 ALT 34 alk phos 186 and proBNP 1700 and procalcitonin level was 0.13. Albumin 2.5. Urinalysis negative for infection. COVID-19, influenza A B and RSV PCR not detected. 07/09/2022 Patient is currently lying in the bed. Patient is on Airvo 35 L at 30% FiO2. Patient has been afebrile overnight. Was having cough with brown sputum production. No complaints of chest pain.No nausea vomiting abdominal pain or diarrhea. Chest x-ray showed improving volume overload or pulmonary edema. Laboratory data showed WBC 3.3 hemoglobin 12.2 and platelets 136 INR 1.7 Sodium 137 potassium 4.1 chloride 103 bicarb is 30 BUN 25 and creatinine 0.98 and blood sugar is 197. Calcium 7.9. 07/10/2022 Patient is seen and evaluated in follow-up today with pulmonary and cardiology following. Patient continues to have shortness of breath and maintained on oxygen with pulmonary following and patient is receiving IV ceftriaxone and has finished a Zithromax. Patient is on Coumadin with pharmacy to dose and also being maintained on IV Lasix with dose being adjusted to 40 mg twice daily and will continue. Patient does continue on IV steroids and would recommend monitoring Accu-Cheks before meals and at bedtime and use sliding scale as needed. Patient does not normally wear oxygen in the outpatient setting and recommended wean FiO2 as tolerated and will evaluate for possible home O2 requirements. Patient is currently afebrile, denies chest pain or palpitations. Patient is reporting that she is eating with occasional nausea with no vomiting noted. Encouraged increase activity as tolerated. 07/11/2022 Patient is seen and evaluated in follow-up today currently maintained on IV Lasix and kidney function stable and diuresing well with cardiology and pulmonary following closely. Patient also maintained on IV steroids along with breathing treatments and 3 L of oxygen via nasal cannula. Patient continues to report a junky cough although reports is having some improvements in her shortness of breath. Patient reports not a significant improvement. Patient is afebrile maintained on antibiotics and will continue for now. Patient denies worsening shortness of breath, chest pains, or palpitations. No reports of nausea or vomiting and patient is tolerating diet. Encouraged increased activity as tolerated. Recommend follow-up labs to monitor electrolytes and kidney functions closely. 07/12/2022 Patient is seen and evaluated in follow-up today and is maintained on telemetry monitoring with pulmonary and cardiology following. Patient reports there was an episode of atrial for ablation with RVR and cardiology was notified and given an extra dose of metoprolol and is currently sinus rhythm. Patient continues to report shortness of breath with wheezing and crackles noted. Patient is continued on IV steroids along with breathing treatments and pulmonary is following closely. Patient reports she feels quite frustrated with not getting better and wants to go home. Her follow-up LENNY for possible watchman device has been rescheduled. Patient is currently afebrile with no reports of chest pain or palpitations. No reports of nausea vomiting and patient tolerating diet. Encouraged oral intake. 07/13/2022 Patient is seen in follow-up this morning continues to be short of breath with wheezing and bronchospastic. Patient is maintained on inhalers along with breathing treatments, IV steroids, IV ceftriaxone along with IV Lasix with pulmonary and cardiology following closely. Patient is continued on 3 L via nasal cannula and reports does not wear any oxygen at home. Patient appears winded during conversation and takes multiple breaks to catch her breath. Will follow up on chest x-ray in the a.m. Patient is currently afebrile with no reports of chest pain or palpitations. Patient continues with a cough with difficulty expectorating any phlegm. No reports of nausea vomiting and patient is tolerating diet encourage small frequent meals. Patient is weak and with prolonged hospitalization would recommend possible physical therapy evaluation. Patient's blood sugars being monitored with Accu-Cheks and has sliding scale and will continue with current regimen. 07/14/2022 Patient is currently resting in the bed. Awake alert and oriented x3. Currently requiring 2 L oxygen via nasal cannula. Still complains of shortness of breath and tightness. Bilateral wheezing and scattered rhonchi especially in the basilar on physical exam. No complaints of chest pain. No nausea vomiting abdominal pain or diarrhea. Tolerating oral diet. Was also complaining of constipation. Patient is being continued on IV Solu-Medrol 60 mg every 6 hourly and is also on Lasix 40 mg every 12 IV. Pulmonary and cardiology is on board. Most recent Laboratory data reviewed. 07/15/2022 Patient states that she feels better today. Breathing status is improving. Requiring oxygen at 2 L via nasal cannula. No complaints of chest pain. Less bronchospastic today. Otherwise patient is being continued on Solu-Medrol 60 mg every 6 hourly patient is also on Lasix 40 mg every 12. Laboratory showed WBC 9.3 hemoglobin 14.1 platelets 127 INR 2.8 BUN 15 creatinine 1.14 and blood sugar is 235. Patient will be started on insulin regimen. 07/16/2022 Patient is seen and evaluated and follow-up this morning with cardiology and pulmonary following. Patient is maintained on IV steroids along with breathing treatments and weaning as tolerated down to 2 L via nasal cannula. Patient also maintained on IV Lasix and continues to have lower extremity edema and continued shortness of breath. Kidney functions are being monitored and creatinine trending down. Patient is maintained on Coumadin with pharmacy to dose and INR was 3.0 today. Recommend monitoring INR levels closely. Patient is requiring assistance with getting up and will add PT/OT therapy for evaluation. Patient reports she will be going home once stabilized and discharged. Patient is currently afebrile with no reports of chest pain or palpitations. Patient continues to report shortness of breath although no worse. Patient has had prolonged hospitalization extremely slow to improve. Will follow-up labs in the a.m. 07/17/2022 Patient is seen and evaluated in follow-up today with pulmonary and cardiology following. Patient has been switched to oral Lasix elbow continues to have significant lower extremity edema with shortness of breath and overload. We'll transition Lasix back to IV at 60 mg twice a day and follow-up with repeat labs. Current creatinine is 1.2. Patient reports is making urine but unsure how much in intake and output is not being documented strictly. Patient did have some increased abdominal distention and reports not having much of bowel movements will order abdominal x-ray and follow-up chest x-ray from today is pending. Patient is currently afebrile and denies chest pain or palpitations. No reports of nausea or vomiting and patient is tolerating diet. 07/18/2022 Patient is seen in follow-up this morning continues to report shortness of breath and maintained on 2 L via nasal cannula. Cardiology following recommending transitioning back to oral Lasix although pulmonary has continued with IV Lasix for continued lower extremity edema. Will add compression stockings as well. Patient does continue with weakness and has had prolonged hospitalization will consult PT/OT therapy and discuss again further with case management along with patient about possible ECF. Patient reports she will be returning home although given her significant comorbidities and prolonged ho spitalization patient may benefit from ECF for continued strength and mobility prior to returning home. Patient is currently afebrile denies chest pain or palpitations. Patient is tolerating oral intake and was continued on IV steroids which are being transitioned to oral prednisone. 07/19/2022 Patient is seen and evaluated in follow-up this morning currently sitting up in the chair with at bedside. Patient is continued on 2 L via nasal cannula and patient reports dyspnea although feels somewhat improved. Patient is very slow to progress and is continued on breathing treatments and has been transitioned oral steroids. Patient's blood sugars elevated and will increase long-acting and continue sliding scale monitor Accu-Cheks before meals and at bedtime. Patient also continues on IV Lasix although having some worsening in kidney functions and nephrology was consulted. Recommend fluid restrictions and awaiting abdominal ultrasound. Patient will be continued on IV Lasix and attempted CAMRYN hose although unable to tolerate. Patient does continue with bilateral lower extremity edema 2+ pitting. Afebrile with no reports of nausea or vomiting noted. Patient continues to report shortness of breath and denies chest pain or palpitations. 07/20/2022 Patient is seen and evaluated in follow-up this morning currently getting up to work with physical therapy. Patient does continue with significant weakness and reports she would like to be held to return home. Case management is following in the event patient does agree to go to rehab. Patient also continues on 2 L via nasal cannula and does not wear oxygen outpatient. Patient being followed by cardiology along with pulmonary and nephrology. Patient does continue with significant lower extremity edema and is being started on IV Lasix drip and also continued with metolazone. patient was noted to have ascites noted on imaging of the abdomen. Patient is afebrile report shortness of breath with exertion although reports is somewhat improved and denies chest pain or palpitations. Patient is tolerating diet although having some tongue and mouth pain. Appears to be oral thrush and will add nystatin swish and swallow. Recommend continue monitoring Accu-Cheks before meals and at bedtime and continue with current medication regimen. 07/21/2022 Patient is seen this morning continues on IV Lasix drip with multiple medical consultations following including nephrology, cardiology, pulmonary. Patient continues with generalized edema noted with significant lower extremity edema. Patient continues to endorse shortness of breath and currently maintained on 2 L. Patient does have mouth pain although feels slightly improved and maintained on nystatin. Patient is afebrile with no reports of chest pain or palpitations noted. Oral intake is fair. Blood sugars have been. Will will continue monitoring Accu-Cheks per protocol and will continue current regimen. Patient is receiving DuoNeb treatments as well as oral steroids at this point. Patient with prolonged hospitalization and significant weakness would recommend physical therapy daily. Encouraged increased activity as tolerated with getting up out of the bed more frequently. Patient reports to be lethargic and fatigued today. Review of systems: Constitutional: reports of fatigue today, no fever, or chills Cardiovascular: No reports of chest pain or palpitations Respiratory: Reports of continued shortness of breath GI: No reports of nausea, vomiting, or diarrhea : No reports of dysuria or retention Neurovascular: reports of generalized weakness All medications have been reviewed Active Medications Acetaminophen (Acetaminophen Tab 325 Mg Tab) 650 mg PO Q6H PRN PRN Reason: Mild Pain or Fever > 100.5 Last Admin: 07/21/22 16:13 Dose: 650 mg Albuterol/Ipratropium (Ipratropium-Albuterol 3 Ml Neb) 3 ml INHALATION RT-QID [facility] Last Admin: 07/21/22 21:09 Dose: 3 ml Alprazolam (Alprazolam 0.25 Mg Tab) 0.25 mg PO BID PRN PRN Reason: Anxiety Last Admin: 07/21/22 22:15 Dose: 0.25 mg Ascorbic Acid (Ascorbic Acid 500 Mg Tab) 1,000 mg PO DAILY [facility] Last Admin: 07/21/22 08:01 Dose: 1,000 mg Budesonide (Budesonide 1 Mg/2 Ml Nebu) 1 mg INHALATION RT-BID [facility] Last Admin: 07/21/22 21:09 Dose: 1 mg Cholecalciferol (Cholecalciferol 25 Mcg (1000 Iu) Tablet) 25 mcg PO DAILY [facility] Last Admin: 07/21/22 08:01 Dose: 25 mcg Citalopram Hydrobromide (Citalopram Hydrobromide 20 Mg Tab) 20 mg PO HS [facility] Last Admin: 07/21/22 20:20 Dose: 20 mg Dextrose/Water (Dextrose 50% Syringe 50 Ml) 25 ml IVP PER PROTOCOL PRN; Protocol PRN Reason: Hypoglycemia Dextrose/Water (Dextrose 50% Syringe 50 Ml) 50 ml IVP PER PROTOCOL PRN; Protocol PRN Reason: Hypoglycemia Ferrous Sulfate (Ferrous Sulfate 325 Mg Tab) 325 mg PO Q48H [facility] Last Admin: 07/20/22 09:19 Dose: 325 mg Furosemide 100 mg/ Sodium (Chloride) 100 mls @ 10 mls/hr IV .Q10H [facility] Last Admin: 07/21/22 12:23 Dose: 10 mg/hr, 10 mls/hr Insulin Aspart (Insulin Aspart (Novolog) 100 Unit/Ml Vial) 0 unit SQ ACHS [facility]; Protocol Last Admin: 07/21/22 20:20 Dose: 2 unit Insulin Detemir (Insulin Detemir (Levemir) 100 Unit/Ml Syr) 15 unit SQ BID@0700,2100 [facility] Last Admin: 07/21/22 20:20 Dose: 15 unit Levothyroxine Sodium (Levothyroxine 50 Mcg Tab) 50 mcg PO DAILY@0630 [facility] Last Admin: 07/21/22 06:26 Dose: 50 mcg Magnesium Oxide (Magnesium Oxide 400 Mg Tab) 400 mg PO DAILY [facility] Last Admin: 07/21/22 08:01 Dose: 400 mg Metolazone (Metolazone 5 Mg Tab) 5 mg PO DAILY [facility] Last Admin: 07/21/22 08:01 Dose: 5 mg Metoprolol Tartrate (Metoprolol Tartrate 50 Mg Tab) 50 mg PO BID [facility] Last Admin: 07/21/22 20:20 Dose: 50 mg Miscellaneous Information (Warfarin Per Pharmacy) 0 each MISCELLANE DIRECTED PRN PRN Reason: PHARMACY DOSING WARFARIN Naloxone HCl (Naloxone 0.4 Mg/Ml 1 Ml Vial) 0.2 mg IVP Q2M PRN PRN Reason: Opioid Reversal Nystatin (Nystatin 100,000 Unit/Ml Susp 500,000 Unit/5 Ml Cup) 500,000 unit PO QID [facility]; Protocol Last Admin: 07/21/22 20:20 Dose: 500,000 unit Pantoprazole Sodium (Pantoprazole 40 Mg Tablet) 40 mg PO AC-[id number] [facility] Last Admin: 07/21/22 06:26 Dose: 40 mg Pramipexole Dihydrochloride (Pramipexole 0.125 Mg Tab) 0.125 mg PO BID [facility] Last Admin: 07/21/22 20:20 Dose: 0.125 mg Prednisone (Prednisone 20 Mg Tab) 40 mg PO DAILY [facility] Last Admin: 07/21/22 08:01 Dose: 40 mg Senna (Sennosides 8.6 Mg Tab) 8.6 mg PO DAILY PRN PRN Reason: Constipation Last Admin: 07/15/22 21:02 Dose: 8.6 mg Spironolactone (Spironolactone 25 Mg Tab) 25 mg PO DAILY [facility] Last Admin: 07/21/22 08:01 Dose: 25 mg PHYSICAL EXAMINATION: Patient is laying in the bed, no acute distress, asleep although arousable, alert and oriented. Morbidly obese. Currently continued on 2 L HEENT: Normocephalic. Neck is supple. Pupils reactive. Nostrils clear. Oral cavity is moist. Neck reveals no JVD, carotid bruits, or thyromegaly. CHEST EXAMINATION: Trachea is central. Symmetrical expansion. Bilateral diffuse rhonchi with some faint crackles at the bases. Bibasilar diminished sounds. Nonlabored breathing. CARDIAC: S1, S2 are muffled, irregular ABDOMEN: Soft. Edematous, obese, Bowel sounds present. Nontender. No organomegaly. No abdominal bruits. Extremities: 2+ bilateral pedal edema. No clubbing or cyanosis Neurologically awake, alert, oriented. Able to move all extremities. No gross focal deficits noted. Diffusely weak Skin: No rash or skin lesions. Psychiatric: Cooperative. Non-suicidal Musculoskeletal: No joint swelling or deformity. Normal range of motion. Assessment: Worsening shortness of breath which is multifactorial, due to acute CHF exacerbation as well as moderate persistent asthma Moderate persistent asthma with exacerbation Mouth and tongue pain, secondary to oral candidiasis Acute CHF with diastolic dysfunction with continued bilateral lower extremity edema , currently on IV Lasix drip Acute tracheobronchitis and possible pneumonia, pneumonia ruled out Obstructive sleep apnea not on CPAP at home Paroxysmal atrial fibrillation on anticoagulation with Coumadin. Status post episode of atrial fibrillation with RVR on 07/12/2022, currently rate controlled Left atrial thrombus and currently being anticoagulated with warfarin. Patient was supposed to get LENNY, Watchman procedure as an outpatient at [facility] and will follow-up outpatient Hypertension Morbid obesity with BMI of 40.7 Diabetes type 2, uncontrolled with hyperglycemia, also steroid effect History of nonalcoholic hepatic steatosis History of GERD status post Ambrose fundoplication Hypothyroidism Right ovarian mass currently under investigation as an outpatient Prior history of smoking quit 36 years ago History of subdural hematoma in January 2022 Coumadin dosing GI prophylaxis No code Plan: Patient is currently on 2 L nasal cannula oxygen. Weaning FiO2 as tolerated with pulmonary and cardiology following. Patient does not normally wear oxygen at home and will require 2 L via nasal cannula on discharge to manage COPD Nephrology and cardiology following as well maintained on IV Lasix drip with some minimal improvement in swelling and worsening kidney functions will follow and monitor labs closely and continue current regimen Recommend monitoring strict intake and output and continue with fluid restrictions. Patient is receiving breathing treatments and steroids And transitioned to oral prednisone with pulmonary following Recommend continue monitoring Accu-Cheks before meals and at bedtime and use sliding scale along with long-acting Coumadin monitoring with pharmacy to dose, currently therapeutic Patient was supposed to follow-up with cardiology as an outpatient for LENNY with possible Watchman procedure at [facility] on 07/13 and was canceled due to being hospitalized. Will need to be rescheduled once respiratory status is more stable Encouraged increased activity as tolerated and encouraged oral intake. Patient has had prolonged hospitalization with weakness. Patient plans on returning home with family once stabilized and discharged although given her prolonged hospitalization and significant weakness patient may benefit from ECF and will discuss further with case management as well as patient about possible rehab prior to returning home. Patient is working with PT/OT therapy daily Will follow-up with labs in the a.m. The impression and plan of care has been dictated by Melissa Diaz, Nurse Practitioner as directed. Dr. Meri MD I have performed a history and examination and MDM of this patient, discussed the same with the dictator, and agree with the dictator's assessment and plan as written ,documented as a scribe. Based on total visit time, I have performed more than 50% of the visit. Objective - Vital Signs Vital signs: Vital Signs Temp 98.3 F 07/21/22 03:33 Pulse 100 07/21/22 08:28 Resp 28 H 07/21/22 03:33 BP 123/73 07/21/22 05:50 Pulse Ox 98 07/21/22 08:17 FiO2 29 07/09/22 08:00 Intake & Output 07/20/22 07/21/22 07/21/22 18:59 06:59 18:59 Intake Total 308 182.667 120 Output Total 500 1600 Balance -192 -1417.333 120 Weight 103 kg Intake: IV 10 Invasive Line 4 10 Intake, IV Titration 182.667 Amount Furosemide 100 mg In 182.667 Sodium Chloride 0.9% 90 ml @ 10 MG/HR 10 mls/hr IV .Q10H [facility] Rx#: [id number] Oral 298 120 Output: Urine 500 1600 Other: Voiding Method External Catheter External Catheter # Bowel Movements 1 - Labs CBC & Chem 7: 07/16/22 08:22 07/21/22 08:26 Labs: Abnormal Lab Results - Last 24 Hours (Table) 07/20/22 07/20/22 07/20/22 Range/Units 08:43 08:43 11:42 PT 27.8 H (9.0-12.0) sec INR 2.9 H (<1.2) Sodium 134 L (137-145) mmol/L Chloride 95 L (98-107) mmol/L Carbon Dioxide 37 H (22-30) mmol/L BUN 86 H (7-17) mg/dL Creatinine 1.58 H (0.52-1.04) mg/dL Glucose 190 H (74-99) mg/dL POC Glucose (mg/dL) 170 H (70-110) mg/dL Calcium 8.3 L (8.4-10.2) mg/dL 07/20/22 07/20/22 07/21/22 Range/Units 16:33 20:10 06:11 PT (9.0-12.0) sec INR (<1.2) Sodium (137-145) mmol/L Chloride (98-107) mmol/L Carbon Dioxide (22-30) mmol/L BUN (7-17) mg/dL Creatinine (0.52-1.04) mg/dL Glucose (74-99) mg/dL POC Glucose (mg/dL) 257 H 229 H 146 H (70-110) mg/dL Calcium (8.4-10.2) mg/dL
[2022-07-22] MEDS: FUROSEMIDE 100 MG in SODIUM CHLORIDE 0.9% 90 ML IV SCH ×2 (05:41→17:46)
[2022-07-22 06:05] LABS: Glucose,Whole Blood 129 mg/dL (70-110)
[2022-07-22] MEDS: INSULIN ASPART (NovoLOG) 100 UNIT/ML VIAL SQ SCH ×4 (06:15→21:43)
[2022-07-22] MEDS: PANTOPRAZOLE 40 MG TABLET PO SCH (06:18)
[2022-07-22] MEDS: INSULIN DETEMIR (LEVEMIR) 100 UNIT/ML SYR SQ SCH ×2 (06:18→21:43)
[2022-07-22] MEDS: LEVOTHYROXINE 50 MCG TAB PO SCH (06:18)
[2022-07-22 08:18] LABS: Calcium 8.7 mg/dL (8.4-10.2); Potassium 4.2 mmol/L (3.5-5.1)
[2022-07-22] MEDS: ASCORBIC ACID 500 MG TAB PO SCH (08:26)
[2022-07-22] MEDS: CHOLECALCIFEROL 25 MCG (1000 IU) TABLET PO SCH (08:26)
[2022-07-22] MEDS: SPIRONOLACTONE 25 MG TAB PO SCH (08:26)
[2022-07-22] MEDS: predniSONE 20 MG TAB PO SCH (08:26)
[2022-07-22] MEDS: metOLazone 5 MG TAB PO SCH (08:27)
[2022-07-22] MEDS: METOPROLOL TARTRATE 50 MG TAB PO SCH ×2 (08:27→21:43)
[2022-07-22] MEDS: FERROUS SULFATE 325 MG TAB PO SCH (08:27)
[2022-07-22] MEDS: PRAMIPEXOLE 0.125 MG TAB PO SCH ×2 (08:27→21:42)
[2022-07-22] MEDS: NYSTATIN 100,000 UNIT/ML SUSP 500,000 UNIT/5 ML CUP PO SCH ×4 (08:27→21:42)
[2022-07-22] MEDS: MAGNESIUM OXIDE 400 MG TAB PO SCH (08:27)
[2022-07-22 08:46] LABS: INR 2.2 (<1.2); Prothrombin Time 21.3 sec (9.0-12.0)
[2022-07-22] MEDS: BUDESONIDE 1 MG/2 ML NEBU INHALATION SCH ×2 (09:33→21:13)
[2022-07-22] MEDS: IPRATROPIUM-ALBUTEROL 3 ML NEB INHALATION SCH ×4 (09:33→21:12)
--- NOTE | 2022-07-22 09:52 | P.PN ---
Subjective Patient is seen in follow-up for acute kidney injury. Renal function stable. Nonoliguric. She is on Lasix drip and metolazone. Edema improving. Hemodynamically stable. On 2 L nasal cannula. Vital signs are stable. General: No acute distress. HEENT: Head exam is unremarkable. On nasal cannula. LUNGS: No audible rhonchi or wheezes. HEART: Rate and Rhythm are regular. ABDOMEN: Nontender. EXTREMITITES: 2+ edema. Objective - Vital Signs Vital signs: Vital Signs Temp 97.6 F 07/22/22 08:00 Pulse 74 07/22/22 09:44 Resp 16 07/22/22 08:00 BP 114/64 07/22/22 08:00 Pulse Ox 96 07/22/22 09:33 FiO2 29 07/09/22 08:00 Intake & Output 07/21/22 07/22/22 07/22/22 18:59 06:59 18:59 Intake Total 899.333 100 180 Output Total 850 1150 550 Balance 49.333 -1050 -370 Intake: Intake, IV Titration 59.333 100 Amount Furosemide 100 mg In 59.333 100 Sodium Chloride 0.9% 90 ml @ 10 MG/HR 10 mls/hr IV .Q10H [facility] Rx#: [id number] Oral 840 180 Output: Urine 850 1150 550 Other: Voiding Method External Catheter External Catheter # Voids 1 # Bowel Movements 1 - Labs CBC & Chem 7: 07/16/22 08:22 07/22/22 07:41 Labs: Abnormal Lab Results - Last 24 Hours (Table) 07/21/22 07/21/22 07/21/22 Range/Units 08:26 11:27 16:30 PT (9.0-12.0) sec INR (<1.2) Sodium 134 L (137-145) mmol/L Chloride 91 L (98-107) mmol/L Carbon Dioxide 39 H (22-30) mmol/L BUN 87 H (7-17) mg/dL Creatinine 1.82 H (0.52-1.04) mg/dL Glucose 148 H (74-99) mg/dL POC Glucose (mg/dL) 173 H 208 H (70-110) mg/dL Total Bilirubin 5.7 H (0.2-1.3) mg/dL AST 68 H (14-36) U/L ALT 88 H (4-34) U/L Alkaline Phosphatase 259 H (38-126) U/L Total Protein 5.2 L (6.3-8.2) g/dL Albumin 2.6 L (3.5-5.0) g/dL 07/21/22 07/22/22 07/22/22 Range/Units 20:08 06:04 07:41 PT 21.3 H (9.0-12.0) sec INR 2.2 H (<1.2) Sodium (137-145) mmol/L Chloride (98-107) mmol/L Carbon Dioxide (22-30) mmol/L BUN (7-17) mg/dL Creatinine (0.52-1.04) mg/dL Glucose (74-99) mg/dL POC Glucose (mg/dL) 244 H 129 H (70-110) mg/dL Total Bilirubin (0.2-1.3) mg/dL AST (14-36) U/L ALT (4-34) U/L Alkaline Phosphatase (38-126) U/L Total Protein (6.3-8.2) g/dL Albumin (3.5-5.0) g/dL 07/22/22 Range/Units 07:41 PT (9.0-12.0) sec INR (<1.2) Sodium 134 L (137-145) mmol/L Chloride 90 L (98-107) mmol/L Carbon Dioxide 41 H* (22-30) mmol/L BUN 96 H (7-17) mg/dL Creatinine 1.75 H (0.52-1.04) mg/dL Glucose 125 H (74-99) mg/dL POC Glucose (mg/dL) (70-110) mg/dL Total Bilirubin (0.2-1.3) mg/dL AST (14-36) U/L ALT (4-34) U/L Alkaline Phosphatase (38-126) U/L Total Protein (6.3-8.2) g/dL Albumin (3.5-5.0) g/dL Assessment and Plan Plan: Assessment: 1. Acute kidney injury secondary to vasomotor nephropathy secondary to cardiorenal syndrome. Creatinin stable at 1.75 today. UA benign. No hydronephrosis noted in the left kidney. Questionable dilated upper collecting system. 2. Acute on chronic diastolic CHF with mild to moderate tricuspid and aortic regurgitation. 3. Volume overload. Ascites noted on ultrasound. 4. History of liver cirrhosis. 5. History of COPD. 6. Diabetes mellitus. 7. Metabolic alkalosis secondary to diuretics. Plan: Maintain Lasix drip. Stop metolazone. Add Diamox. 1500 mL fluid restriction. Low-salt diet. Avoid nephrotoxins. Continue to monitor renal function and urine output. Consult IR for possible paracentesis. Will give IV albumin prior to the procedure is done.
[2022-07-22 10:11] LABS: Basophils # (A) 0.1 k/uL (0-0.2); Basophils % (A) 1 %; Eosinophils % (A) 0 %; HGB 14.1 gm/dL (11.4-16.0); Lymphocytes # (A) 0.4 k/uL (1.0-4.8); Lymphocytes % (A) 4 %; MCH 32.6 pg (25.0-35.0); MCV 101.9 fL (80.0-100.0); Macrocytosis Slight; Monocytes # (A) 0.3 k/uL (0-1.0); Monocytes % (A) 3 %; Neutrophils # (A) 9.4 k/uL (1.3-7.7); Neutrophils % (A) 92 %; RBC 4.32 m/uL (3.80-5.40); RDW 14.2 % (11.5-15.5); WBC 10.2 k/uL (3.8-10.6)
[2022-07-22 11:44] LABS: Platelet Count 52 k/uL (150-450)
[2022-07-22 12:42] LABS: Glucose,Whole Blood 164 mg/dL (70-110)
--- NOTE | 2022-07-22 12:42 | P.PN ---
Subjective Progress Note Date: 07/22/22 I'm seeing this patient in new consultation today 07/09/2022 for progressive shortness of breath starting yesterday. This is a 77-year-old white female with a significant medical history for congestive heart failure, moderate persistent asthma, atrial fibrillation, left atrial appendage thrombus, diabetes mellitus type 2, hypertension, hypothyroidism, nonalcoholic cirrhosis of the liver, brain bleed, mild obstructive sleep apnea, remote history of smoking 36 years ago. Patient presented yesterday for difficulty breathing that started on Saturday. Patient reports shortness breath especially when exerting herself or lying flat, wheezing, fluid retention in her lower extremities, weight gain of about 3 pounds, and heart palpitations. She also reports some upper respiratory tract infection symptoms such as runny nose, cough with brown sputum production, and chills. She denies any subjective fevers or chest pain. Patient does follow with Dr. Gupta in the office for management of her moderate persistent asthma and mild obstructive sleep apnea. Patient patient states that she takes alb uterol and Symbicort on an outpatient basis. She also follows with a vrt mechanic from [place], and has a planned LENNY and watchman procedure this Saturday. Patient is currently resting in bed, on AIRVO 35 L and 30% high flow cannula, in no acute distress. Chest x-ray on arrival showed mild cardiomegaly with mild diffuse interstitial opacities. No obvious focal consolidation. NT proBNP was mildly elevated at 1700. CBC on arrival shows a non-elevated WBC count of 3.9, hemoglobin 12, hematocrit 37, platelets 145,000. Patient's INR on arrival was sub-therapeutic at 1.6. Patient does take Coumadin on outpatient basis. Patient has reported some minimal rectal bleeding on and Saturday of this previous week. No bleeding since reported. BMP shows a sodium 137, potassium 4.2, chloride 104, serum CO2 31, BUN 23, creatinine 0.86, glucose 113. Lactic acid 1.5. LFTs mildly elevated. Negative for influenza, RSV, COVID-19. Pro-calcitonin levels pending. Patient is currently receiving bronchodilators and IV Solu-Medrol. She is also receiving empiric antibiotics for community associated pneumonia. Remains afebrile. Vital signs are stable. Progress note dated 07/10/2022. 7-year-old patient seen for shortness of breath, in room 374, secondary to asthma exacerbation, and diastolic CHF. Currently, the patient's on 3 L of oxygen. She's not receiving any IV fluids. Clinically, she feels better. White count 16.5, hemoglobin 12.8, hematocrit 40, and platelet count is normal. PTT is 22 with an INR of 2.2. Sodium, potassium, chloride, CO2, and anion gap, are all normal. BUN is 30 with a creatinine of 1.14. Chest x-ray shows a pattern of improving volume status. Progress note dated 07/11/2022. 77-year-old female seen today in room 374. The patient was admitted with a diagnosis of asthma exacerbation, and diastolic CHF. The patient was to have a cardiac procedure done on Saturday, and an outside hospital. The patient should not have that done at this time. She remains on 2 L of oxygen. No IV fluids. Her daughter is in the room with her. The patient's only feeling marginally better. I did mention to the vrt mechanic here, at her procedure should be canc eled. White count 10.5, hemoglobin 12.5, hematocrit 39.5, with a normal platelet count. PT 25.6 with an INR 2.6. Sodium 136, potassium 4.2, chlorides 100, CO2 31, BUN 38, creatinine 1.10. Progress note dated 07/12/2022. 77-year-old patient seen in room 374. The patient states that she had a bad night last night, apparently developing atrial fibrillation. She is also quite bronchospastic and wheezy. Currently, she is on 2 L of oxygen. She's not receiving any IV fluids. Saturations are 97%. She was receiving a breathing treatment today, when we saw her in the room. No new labs today to report. Progress note dated 07/13/2022. 77-year-old female seen in room 374. The patient complains of being short of breath, and quite bronchospastic. She feels like she can't cough up phlegm. Currently, she remains on 2 L of oxygen. She's not receiving any IV fluids. She remains on corticosteroids, inhaled corticosteroids, as well as albuterol sulfate and ipratropium bromide. She apparently cannot tolerate long-acting beta agonist, which is why she's not receiving them. PTT 26.9, INR 2.8. Sodium 137, potassium 4.6, chlorides 100, CO2 36, BUN 44, and creatinine 1.10. Glucose 229. Calcium is 8.2. Progress note dated 07/14/2022. 77-year-old female seen again in room 374. The patient complains of tightness in her chest, shortness of breath, and bronchospasm. She's having a hard time coughing up any phlegm. She's currently on 2 L. She certainly no worse. She's not receiving any IV fluids. No new labs today other than a PT of 26.9 and an INR of 2.8. Glucose 252. Progress note dated 07/15/2022. 77-year-old female seen today in room 374. Today she sitting up in the chair. Currently, she is on 2 L of oxygen. She's not receiving IV fluids. She does feel a bit better today. She still has shortness of breath, chest tightness, and cough, with bronchospasm. Labs today include a white count 9.3, hemoglobin 14.2, hematocrit 43.8, and a platelet count of 127,000. PTT is 27.1, with an INR of 2.8. Sodium 137, potassium 5.1, chlorides 97, CO2 35, BUN 52, and cr eatinine 1.14. Progress note dated 07/16/2022. 77-year-old female seen along with her daughter in room 374. The patient remains on 2 L of oxygen. She's feeling better and breathing better. She ce rtainly much less bronchospastic. She denies any chest pain or chest discomfort. Laboratory data includes a white count 11.1, hemoglobin 13.8, hematocrit 43, and a platelet count of 112,000. PTT 30.6, INR 3.1. Sodium 136, potassium 5.1, chlorides 98, CO2 33, BUN 56, creatinine 1.12. Glucose 241. Calcium 8.5. On today's evaluation of 07/17/2022, the patient is still complaining of shortness of breath. On examination he remains bronchospastic and wheezy. She has been hospital for more than a week being treated for an acute COPD exacerbation tracheobronchitis. Chest x-ray was done at time of admission showed no evidence of any acute pneumonia. He is on a combination of bronchodilators and she is also on IV Medrol 60 mg every 6 hours. She has preserved LV function with an EF of around 55-60%. She has nonobstructive coronary artery disease. She has paroxysmal A. fib and the patient is currently on anticoagulation with a therapeutic PT/INR. She has diabetes mellitus type 2, hypertension hyperlipidemia, she also had a INR of 3.1. BUN is 61 with a creatinine of 1.2. The pro-calcitonin level was at 0.09. Her viral serology came back all negative. She is currently on oxygen at 2 L/m nasal cannula with a pulse ox of 95%. On today's evaluation of 07/18/2022, the patient is slightly improved. She still bronchospastic and wheezy although less. She has increased edema lower extremities pH is also complaining of generalized fatigue and weakness. BUN is at 70 with a creatinine of 1.2. Sodium is at 136 with a potassium level IV.8. The patient also has INR of 3.3. The patient is currently on warfarin. She is on bronchodilators. She is also taking Lasix 40 mg by mouth twice a day. On 07/19/2022, the patient is feeling slightly better. Continues to have significant amount of edema lower extremities pH is currently on IV Lasix and she is receiving 40 mg every 12 hours. She is increasing her urine output. Echo documentation of the urine output is not available. However, today's evaluation, she continues to have significant amount of edema lower oximetry is bilaterally. I took her off the IV Solu-Medrol yesterday started on a prednisone burst taper and she is currently on 40 mg P she is also on bronchodilators. She is on Levemir insulin. Blood work from today shows a stable creatinine of 1.49 with a BUN of 81. The sodium was at 136. The potassi um levels at 5.0. She is therapeutic on her INR at 2.7. She is profoundly weak. She will need absolutely further rehabilitation once her condition is more stabilized. 07/20/2022, the patient is weak and lethargic. She continues to have significant amount of third spacing and edema in lower extremities bilaterally. The patient also has chronic kidney dysfunction. The patient was on IV Lasix and the patient has been negative fluid balance. Urine output has not been adequate however. The patient was seen by nephrology and the patient was started on Lasix of 10 mg an hour. On today's evaluation she has a BUN of 86 with a creatinine of 1.5. Sodiums of 134. Potassium level is 5.1. INR therapeutic at 2.9. The patient is on DuoNeb updrafts. She was taken off the IV Solu-Medrol started on a prednisone burst taper starting at 40 mg. 07/21/2022, patient remains on Lasix drip at 10 mg an hour. There is improvement in urine output. Zaroxolyn was added in combination with Lasix by nephrology. Continues to have significant amount of edema fluid overload. She has developed renal dysfunction there is ongoing eric in the creatinine which is up to 1.8 with a BUN of 87. Potassium levels at 4.4 with a sodium level of 134. Otherwise, rest or status remains unchanged. Still has some bronchus and wheezing and currently isn't on prednisone. She remains on oxygen at 2 L/m nasal cannula. She feels lethargic. On 07/22/2019, no new complaints and the patient is doing well and she is diuresing well for now on Lasix and Aldactone. She was also given Diamox to counteract the development of metabolic alkalosis. She is in negative fluid balance patient continues to have excessive amount of edema lower exam is bilaterally. No active respirations for now. The patient has no discomfort 10.2 with a hemoglobin of 14. INR is at 2.2. BUN is 96 with a creatinine of 1.7 and a sodium level is at 134. Potassium levels at 4.2. Nephrology is on the case. She remains on O2 at 2 L. No respiratory difficulties for now. She is also completing a prednisone burst taper. Overall, she is feeling quite weak. Objective - Vital Signs Vital signs: Vital Signs Temp 97.6 F 07/22/22 08:00 Pulse 74 07/22/22 09:44 Resp 16 07/22/22 08:00 BP 114/64 07/22/22 08:00 Pulse Ox 96 07/22/22 09:33 FiO2 29 07/09/22 08:00 Intake & Output 07/21/22 07/22/22 07/22/22 18:59 06:59 18:59 Intake Total 899.333 100 180 Output Total 850 1150 550 Balance 49.333 -1050 -370 Intake: Intake, IV Titration 59.333 100 Amount Furosemide 100 mg In 59.333 100 Sodium Chloride 0.9% 90 ml @ 10 MG/HR 10 mls/hr IV .Q10H [facility] Rx#: [id number] Oral 840 180 Output: Urine 850 1150 550 Other: Voiding Method External Catheter External Catheter External Catheter # Voids 1 # Bowel Movements 1 - Exam No acute distress, oriented 3. Currently on 2 L. Minimal conversational dyspnea. HEENT examination is grossly unremarkable. Neck supple. Full range of motion. No adenopathy thyromegaly or neck vein distention. Cardiovascular examination reveals regular rhythm rate. S1-S2 normal. No S3 or S4. No discernible murmur noted. Heart rate 86 bpm. Heart sounds are distant. Lungs reveal scattered coarse bilateral expiratory rhonchi. Expiratory wheezes are noted. Breath sounds are equal bilaterally. No crackles. Breath sounds are diminished throughout. Saturations are 95 % on 2 L. Abdomen soft bowel sounds are heard. No masses or tenderness. Extremities are intact. No cyanosis clubbing or edema. Skin is without rash or lesion. Neurologic examination is brief but nonfocal. - Labs CBC & Chem 7: 07/22/22 07:41 07/22/22 07:41 Labs: Abnormal Lab Results - Last 24 Hours (Table) 07/21/22 07/21/22 07/22/22 Range/Units 16:30 20:08 06:04 MCV (80.0-100.0) fL PT (9.0-12.0) sec INR (<1.2) Sodium (137-145) mmol/L Chloride (98-107) mmol/L Carbon Dioxide (22-30) mmol/L BUN (7-17) mg/dL Creatinine (0.52-1.04) mg/dL Glucose (74-99) mg/dL POC Glucose (mg/dL) 208 H 244 H 129 H (70-110) mg/dL 07/22/22 07/22/22 07/22/22 Range/Units 07:41 07:41 07:41 MCV 101.9 H (80.0-100.0) fL PT 21.3 H (9.0-12.0) sec INR 2.2 H (<1.2) Sodium 134 L (137-145) mmol/L Chloride 90 L (98-107) mmol/L Carbon Dioxide 41 H* (22-30) mmol/L BUN 96 H (7-17) mg/dL Creatinine 1.75 H (0.52-1.04) mg/dL Glucose 125 H (74-99) mg/dL POC Glucose (mg/dL) (70-110) mg/dL Assessment and Plan Plan: Acute exacerbation of asthma, as well as mild exacerbation of diastolic CHF, leading to hypoxemic respiratory failure. The pro-calcitonin level was normal. The chest x-ray initially was within normal limits and the patient is on a combination of bronchodilators and steroids. The vital serology was also negative. Improvement is ongoing but it's quite slow. Echocardiogram shows a preserved LV function Extensive lower extremity edema, currently on IV Lasix with some interval worsening in the BUN and a creatinine on today's blood work. History of paroxysmal atrial fibrillation. The INR is therapeutic at this point in time Increased lower extremity edema History of subdural hematoma, January 2022. History of rectal bleeding. Type 2 diabetes mellitus. Essential hypertension. Morbid obesity. Nonalcoholic steatohepatitis. Gastroesophageal reflux disease, without esophagitis, status post Ambrose fundoplication. History of hypothyroidism. Mild obstructive sleep apnea syndrome. Previous history of tobacco use. Right ovarian mass. Plan Continues to have signs of fluid overload Continue Lasix drip at 10 mg an hour, and Aldactone and the patient is on Diamox to counteract metabolic alkalosis Continues to have significant amount of edema lower oximetry is bilaterally Creatinine is stable for now Monitor renal function Monitor urine output Senior Sharepoint Architect on the case Continue bronchodilators and steroids and the patient is on DuoNeb neb in addition to Perforomist and Pulmicort updrafts twice a day Provide the case prednisone burst taper Ultrasound the kidneys was done by nephrology and the patient has some limited hydronephrosis on the right, no hydronephrosis is on the left, some ascites also demonstrated in the right upper quadrant area. Monitor lower extremity edema fluid balance Senior Sharepoint Architect on the case Repeat electrolytes in the morning. Monitor PT/INR. Will follow.
--- NOTE | 2022-07-22 13:31 | P.PN ---
Subjective Progress Note Date: 07/22/22 This is a 77 year old female patient with known history of intracranial bleed while on anticoagulation for paroxysmal atrial fibrillation, history of CVA as well with good recovery, previous MMA embolization, type 2 diabetes, hypertension, hyperlipidemia, noncritical coronary artery disease on catheterization November. She is a patient of Dr. ELVIRA Patton and follows with Dr. Lindsey and scheduled for watchman procedure on July 13. Patient presented with increasing shortness of breath appears to be COPD exacerbation with bronchial asthma. A cardiogram was completed revealed normal LV systolic function with moderate MR, mild to moderate AI and mild to moderate TR. She remains on warfarin and pharmacy is dosing. 07/20/2022 She was seen and examined resting comfortably in a chair. She has been ordered to start Lasix drip by nephrology. She remains on metolazone. Her breathing is a bit better but she continues to have significant lower extremity edema. 07/21/2022 The patient was seen and examined resting in bed. Continues to be on Lasix drip per nephrology. Remains on metolazone. She feels her breathing is a bit better today but stills remains heavy at times. Continues to have significant lower extremity edema. Labs this morning showed BUN of 87 and creatinine 1.8 to from 86 and 1.58 respectively yesterday. 07/22/2022 Patient was seen and examined resting in bed. She continues to complain of shallow breathing. Does not feel her edema has improved. Nephrology continues to follow and has discontinued metolazone added Diamox. We have also consulted interventional radiology for possible paracentesis. She continues on IV Lasix drip. Labs this morning showed an INR of 2.2, pharmacy continues to dose Coumadin. BUN 96, creatinine 1.75 with a bicarb of 41. Objective - Vital Signs Vital signs: Vital Signs Temp 97.6 F 07/22/22 08:00 Pulse 72 07/22/22 12:14 Resp 16 07/22/22 08:00 BP 114/64 07/22/22 08:00 Pulse Ox 96 07/22/22 09:33 FiO2 29 07/09/22 08:00 Intake & Output 07/21/22 07/22/22 07/22/22 18:59 06:59 18:59 Intake Total 899.333 100 180 Output Total 850 1150 550 Balance 49.333 -1050 -370 Intake: Intake, IV Titration 59.333 100 Amount Furosemide 100 mg In 59.333 100 Sodium Chloride 0.9% 90 ml @ 10 MG/HR 10 mls/hr IV .Q10H [facility] Rx#: [id number] Oral 840 180 Output: Urine 850 1150 550 Other: Voiding Method External Catheter External Catheter External Catheter # Voids 1 # Bowel Movements 1 - Exam GENERAL: Well-developed in no acute distress. NECK: Supple. No JVD or thyromegaly LUNGS: Respirations even and unlabored. Lungs with wheezing noted throughout and faint bibasilar crackles. HEART: Regular rate and rhythm. S1 and S2 heard. + systolic murmur. EXTREMITIES: Normal range of motion. No clubbing or cyanosis. Peripheral pulses intact. 2+ bilateral lower extremity edema - Labs CBC & Chem 7: 07/22/22 07:41 07/22/22 07:41 Labs: Abnormal Lab Results - Last 24 Hours (Table) 07/21/22 07/21/22 07/22/22 Range/Units 16:30 20:08 06:04 MCV (80.0-100.0) fL Plt Count (150-450) k/uL Neutrophils # (1.3-7.7) k/uL Lymphocytes # (1.0-4.8) k/uL PT (9.0-12.0) sec INR (<1.2) Sodium (137-145) mmol/L Chloride (98-107) mmol/L Carbon Dioxide (22-30) mmol/L BUN (7-17) mg/dL Creatinine (0.52-1.04) mg/dL Glucose (74-99) mg/dL POC Glucose (mg/dL) 208 H 244 H 129 H (70-110) mg/dL 07/22/22 07/22/22 07/22/22 Range/Units 07:41 07:41 07:41 MCV 101.9 H (80.0-100.0) fL Plt Count 52 L D (150-450) k/uL Neutrophils # 9.4 H (1.3-7.7) k/uL Lymphocytes # 0.4 L (1.0-4.8) k/uL PT 21.3 H (9.0-12.0) sec INR 2.2 H (<1.2) Sodium 134 L (137-145) mmol/L Chloride 90 L (98-107) mmol/L Carbon Dioxide 41 H* (22-30) mmol/L BUN 96 H (7-17) mg/dL Creatinine 1.75 H (0.52-1.04) mg/dL Glucose 125 H (74-99) mg/dL POC Glucose (mg/dL) (70-110) mg/dL Assessment and Plan Assessment: Acute COPD exacerbation Tracheobronchitis Bronchial asthma Acute on chronic congestive heart failure with preserved ejection fraction, EF 55-60% Nonobstructive coronary artery disease Left atrial thrombus with plan for watchman procedure-to be rescheduled Paroxysmal atrial fibrillation History of intracranial bleed History of CVA Hypertension Hyperlipidemia Diabetes mellitus type 2 Valvular heart disease Acute kidney injury, secondary to diuresis Plan: From Cardiology's perspective continue diuretics per nephrology. Continue to monitor renal function, electrolytes, accurate I&O and daily weights. Pharmacy to dose Coumadin. Continue to follow the patient and provide further recommendations accordingly. [employer] note has been reviewed, I agree with a documented findings and plan of care. Patient was seen and examined.
[2022-07-22 16:48] LABS: Glucose,Whole Blood 265 mg/dL (70-110)
[2022-07-22] MEDS ORDERED: WARFARIN 0.5 MG TAB PO ONE (18:00)
[2022-07-22 20:08] LABS: Glucose,Whole Blood 303 mg/dL (70-110)
[2022-07-22] MEDS: CITALOPRAM HYDROBROMIDE 20 MG TAB PO SCH (21:42)
[2022-07-22] MEDS: ALPRAZolam 0.25 MG TAB PO PRN (21:42)
[2022-07-23] MEDS: FUROSEMIDE 100 MG in SODIUM CHLORIDE 0.9% 90 ML IV SCH ×2 (00:35→11:17)
[2022-07-23] MEDS: ACETAMINOPHEN TAB 325 MG TAB PO PRN ×2 (03:15→15:54)
--- NOTE | 2022-07-23 05:25 | P.PN ---
Subjective Progress Note Date: 07/22/22 Patient is a 77-year-old female with a past medical history of COPD presents to ER with complaints of worsening shortness of breath for the past 7 days and weight gain about 3 pounds. Initial laboratory test showed WBC 3.9 hemoglobin 12.0 and platelets 145 BUN 23 and creatinine 0.86 AST 65 ALT 34 alk phos 186 and proBNP 1700 and procalcitonin level was 0.13. Albumin 2.5. Urinalysis negative for infection. COVID-19, influenza A B and RSV PCR not detected. 07/09/2022 Patient is currently lying in the bed. Patient is on Airvo 35 L at 30% FiO2. Patient has been afebrile overnight. Was having cough with brown sputum production. No complaints of chest pain.No nausea vomiting abdominal pain or diarrhea. Chest x-ray showed improving volume overload or pulmonary edema. Laboratory data showed WBC 3.3 hemoglobin 12.2 and platelets 136 INR 1.7 Sodium 137 potassium 4.1 chloride 103 bicarb is 30 BUN 25 and creatinine 0.98 and blood sugar is 197. Calcium 7.9. 07/10/2022 Patient is seen and evaluated in follow-up today with pulmonary and cardiology following. Patient continues to have shortness of breath and maintained on oxygen with pulmonary following and patient is receiving IV ceftriaxone and has finished a Zithromax. Patient is on Coumadin with pharmacy to dose and also being maintained on IV Lasix with dose being adjusted to 40 mg twice daily and will continue. Patient does continue on IV steroids and would recommend monitoring Accu-Cheks before meals and at bedtime and use sliding scale as needed. Patient does not normally wear oxygen in the outpatient setting and recommended wean FiO2 as tolerated and will evaluate for possible home O2 requirements. Patient is currently afebrile, denies chest pain or palpitations. Patient is reporting that she is eating with occasional nausea with no vomiting noted. Encouraged increase activity as tolerated. 07/11/2022 Patient is seen and evaluated in follow-up today currently maintained on IV Lasix and kidney function stable and diuresing well with cardiology and pulmonary following closely. Patient also maintained on IV steroids along with breathing treatments and 3 L of oxygen via nasal cannula. Patient continues to report a junky cough although reports is having some improvements in her shortness of breath. Patient reports not a significant improvement. Patient is afebrile maintained on antibiotics and will continue for now. Patient denies worsening shortness of breath, chest pains, or palpitations. No reports of nausea or vomiting and patient is tolerating diet. Encouraged increased activity as tolerated. Recommend follow-up labs to monitor electrolytes and kidney functions closely. 07/12/2022 Patient is seen and evaluated in follow-up today and is maintained on telemetry monitoring with pulmonary and cardiology following. Patient reports there was an episode of atrial for ablation with RVR and cardiology was notified and given an extra dose of metoprolol and is currently sinus rhythm. Patient continues to report shortness of breath with wheezing and crackles noted. Patient is continued on IV steroids along with breathing treatments and pulmonary is following closely. Patient reports she feels quite frustrated with not getting better and wants to go home. Her follow-up LENNY for possible watchman device has been rescheduled. Patient is currently afebrile with no reports of chest pain or palpitations. No reports of nausea vomiting and patient tolerating diet. Encouraged oral intake. 07/13/2022 Patient is seen in follow-up this morning continues to be short of breath with wheezing and bronchospastic. Patient is maintained on inhalers along with breathing treatments, IV steroids, IV ceftriaxone along with IV Lasix with pulmonary and cardiology following closely. Patient is continued on 3 L via nasal cannula and reports does not wear any oxygen at home. Patient appears winded during conversation and takes multiple breaks to catch her breath. Will follow up on chest x-ray in the a.m. Patient is currently afebrile with no reports of chest pain or palpitations. Patient continues with a cough with difficulty expectorating any phlegm. No reports of nausea vomiting and patient is tolerating diet encourage small frequent meals. Patient is weak and with prolonged hospitalization would recommend possible physical therapy evaluation. Patient's blood sugars being monitored with Accu-Cheks and has sliding scale and will continue with current regimen. 07/14/2022 Patient is currently resting in the bed. Awake alert and oriented x3. Currently requiring 2 L oxygen via nasal cannula. Still complains of shortness of breath and tightness. Bilateral wheezing and scattered rhonchi especially in the basilar on physical exam. No complaints of chest pain. No nausea vomiting abdominal pain or diarrhea. Tolerating oral diet. Was also complaining of constipation. Patient is being continued on IV Solu-Medrol 60 mg every 6 hourly and is also on Lasix 40 mg every 12 IV. Pulmonary and cardiology is on board. Most recent Laboratory data reviewed. 07/15/2022 Patient states that she feels better today. Breathing status is improving. Requiring oxygen at 2 L via nasal cannula. No complaints of chest pain. Less bronchospastic today. Otherwise patient is being continued on Solu-Medrol 60 mg every 6 hourly patient is also on Lasix 40 mg every 12. Laboratory showed WBC 9.3 hemoglobin 14.1 platelets 127 INR 2.8 BUN 15 creatinine 1.14 and blood sugar is 235. Patient will be started on insulin regimen. 07/16/2022 Patient is seen and evaluated and follow-up this morning with cardiology and pulmonary following. Patient is maintained on IV steroids along with breathing treatments and weaning as tolerated down to 2 L via nasal cannula. Patient also maintained on IV Lasix and continues to have lower extremity edema and continued shortness of breath. Kidney functions are being monitored and creatinine trending down. Patient is maintained on Coumadin with pharmacy to dose and INR was 3.0 today. Recommend monitoring INR levels closely. Patient is requiring assistance with getting up and will add PT/OT therapy for evaluation. Patient reports she will be going home once stabilized and discharged. Patient is currently afebrile with no reports of chest pain or palpitations. Patient continues to report shortness of breath although no worse. Patient has had prolonged hospitalization extremely slow to improve. Will follow-up labs in the a.m. 07/17/2022 Patient is seen and evaluated in follow-up today with pulmonary and cardiology following. Patient has been switched to oral Lasix elbow continues to have significant lower extremity edema with shortness of breath and overload. We'll transition Lasix back to IV at 60 mg twice a day and follow-up with repeat labs. Current creatinine is 1.2. Patient reports is making urine but unsure how much in intake and output is not being documented strictly. Patient did have some increased abdominal distention and reports not having much of bowel movements will order abdominal x-ray and follow-up chest x-ray from today is pending. Patient is currently afebrile and denies chest pain or palpitations. No reports of nausea or vomiting and patient is tolerating diet. 07/18/2022 Patient is seen in follow-up this morning continues to report shortness of breath and maintained on 2 L via nasal cannula. Cardiology following recommending transitioning back to oral Lasix although pulmonary has continued with IV Lasix for continued lower extremity edema. Will add compression stockings as well. Patient does continue with weakness and has had prolonged hospitalization will consult PT/OT therapy and discuss again further with case management along with patient about possible ECF. Patient reports she will be returning home although given her significant comorbidities and prolonged ho spitalization patient may benefit from ECF for continued strength and mobility prior to returning home. Patient is currently afebrile denies chest pain or palpitations. Patient is tolerating oral intake and was continued on IV steroids which are being transitioned to oral prednisone. 07/19/2022 Patient is seen and evaluated in follow-up this morning currently sitting up in the chair with at bedside. Patient is continued on 2 L via nasal cannula and patient reports dyspnea although feels somewhat improved. Patient is very slow to progress and is continued on breathing treatments and has been transitioned oral steroids. Patient's blood sugars elevated and will increase long-acting and continue sliding scale monitor Accu-Cheks before meals and at bedtime. Patient also continues on IV Lasix although having some worsening in kidney functions and nephrology was consulted. Recommend fluid restrictions and awaiting abdominal ultrasound. Patient will be continued on IV Lasix and attempted CAMRYN hose although unable to tolerate. Patient does continue with bilateral lower extremity edema 2+ pitting. Afebrile with no reports of nausea or vomiting noted. Patient continues to report shortness of breath and denies chest pain or palpitations. 07/20/2022 Patient is seen and evaluated in follow-up this morning currently getting up to work with physical therapy. Patient does continue with significant weakness and reports she would like to be held to return home. Case management is following in the event patient does agree to go to rehab. Patient also continues on 2 L via nasal cannula and does not wear oxygen outpatient. Patient being followed by cardiology along with pulmonary and nephrology. Patient does continue with significant lower extremity edema and is being started on IV Lasix drip and also continued with metolazone. patient was noted to have ascites noted on imaging of the abdomen. Patient is afebrile report shortness of breath with exertion although reports is somewhat improved and denies chest pain or palpitations. Patient is tolerating diet although having some tongue and mouth pain. Appears to be oral thrush and will add nystatin swish and swallow. Recommend continue monitoring Accu-Cheks before meals and at bedtime and continue with current medication regimen. 07/21/2022 Patient is seen this morning continues on IV Lasix drip with multiple medical consultations following including nephrology, cardiology, pulmonary. Patient continues with generalized edema noted with significant lower extremity edema. Patient continues to endorse shortness of breath and currently maintained on 2 L. Patient does have mouth pain although feels slightly improved and maintained on nystatin. Patient is afebrile with no reports of chest pain or palpitations noted. Oral intake is fair. Blood sugars have been. Will will continue monitoring Accu-Cheks per protocol and will continue current regimen. Patient is receiving DuoNeb treatments as well as oral steroids at this point. Patient with prolonged hospitalization and significant weakness would recommend physical therapy daily. Encouraged increased activity as tolerated with getting up out of the bed more frequently. Patient reports to be lethargic and fatigued today. 07/22/2022 Patient is seated follow-up this morning maintained on IV Lasix and being started on IV Diamox with nephrology following. Cardiology and pulmonary following as well patient is maintained on oral prednisone along with breathing treatments and continued on 2 L via nasal cannula. Patient reports continued shortness of breath and having some abdominal discomfort although generalized. Patient did have an abdominal x-ray which was showing some ascites and interventional radiology pain consulted for possible paracentesis for evaluation. Patient is having some variable blood sugars are mildly elevated and will slightly increase long-acting and continue with sliding scale and Accu- Cheks before meals and at bedtime. Recommend continue with fluid extractions and consistent carb diet. Patient with significant weakness being followed by physical therapy. Family at bedside with questions and concerns were answered to the best of our ability. Patient is currently afebrile denies chest pain or palpitations. Review of systems: Constitutional: reports of fatigue today, no fever, or chills Cardiovascular: No reports of chest pain or palpitations Respiratory: Reports of continued shortness of breath GI: No reports of nausea, vomiting, or diarrhea : No reports of dysuria or retention Neurovascular: reports of generalized weakness All medications have been reviewed Active Medications Acetaminophen (Acetaminophen Tab 325 Mg Tab) 650 mg PO Q6H PRN PRN Reason: Mild Pain or Fever > 100.5 Last Admin: 07/23/22 03:15 Dose: 650 mg Acetazolamide Sodium (Acetazolamide Sodium 500 Mg Vial) 250 mg IV Q12HR [facility] Last Admin: 07/22/22 13:00 Dose: 250 mg Albuterol/Ipratropium (Ipratropium-Albuterol 3 Ml Neb) 3 ml INHALATION RT-QID [facility] Last Admin: 07/22/22 21:12 Dose: 3 ml Alprazolam (Alprazolam 0.25 Mg Tab) 0.25 mg PO BID PRN PRN Reason: Anxiety Last Admin: 07/22/22 21:42 Dose: 0.25 mg Ascorbic Acid (Ascorbic Acid 500 Mg Tab) 1,000 mg PO DAILY [facility] Last Admin: 07/22/22 08:26 Dose: 1,000 mg Budesonide (Budesonide 1 Mg/2 Ml Nebu) 1 mg INHALATION RT-BID [facility] Last Admin: 07/22/22 21:13 Dose: 1 mg Cholecalciferol (Cholecalciferol 25 Mcg (1000 Iu) Tablet) 25 mcg PO DAILY [facility] Last Admin: 07/22/22 08:26 Dose: 25 mcg Citalopram Hydrobromide (Citalopram Hydrobromide 20 Mg Tab) 20 mg PO HS [facility] Last Admin: 07/22/22 21:42 Dose: 20 mg Dextrose/Water (Dextrose 50% Syringe 50 Ml) 25 ml IVP PER PROTOCOL PRN; Protocol PRN Reason: Hypoglycemia Dextrose/Water (Dextrose 50% Syringe 50 Ml) 50 ml IVP PER PROTOCOL PRN; Protocol PRN Reason: Hypoglycemia Ferrous Sulfate (Ferrous Sulfate 325 Mg Tab) 325 mg PO Q48H [facility] Last Admin: 07/22/22 08:27 Dose: 325 mg Furosemide 100 mg/ Sodium (Chloride) 100 mls @ 10 mls/hr IV .Q10H [facility] Last Admin: 07/23/22 00:35 Dose: 10 mg/hr, 10 mls/hr Insulin Aspart (Insulin Aspart (Novolog) 100 Unit/Ml Vial) 0 unit SQ ACHS [facility]; Protocol Last Admin: 07/22/22 21:43 Dose: 4 unit Insulin Detemir (Insulin Detemir (Levemir) 100 Unit/Ml Syr) 17 unit SQ BID@0700,2100 [facility] Levothyroxine Sodium (Levothyroxine 50 Mcg Tab) 50 mcg PO DAILY@0630 [facility] Last Admin: 07/22/22 06:18 Dose: 50 mcg Magnesium Oxide (Magnesium Oxide 400 Mg Tab) 400 mg PO DAILY [facility] Last Admin: 07/22/22 08:27 Dose: 400 mg Metoprolol Tartrate (Metoprolol Tartrate 50 Mg Tab) 50 mg PO BID [facility] Last Admin: 07/22/22 21:43 Dose: 50 mg Miscellaneous Information (Warfarin Per Pharmacy) 0 each MISCELLANE DIRECTED PRN PRN Reason: PHARMACY DOSING WARFARIN Naloxone HCl (Naloxone 0.4 Mg/Ml 1 Ml Vial) 0.2 mg IVP Q2M PRN PRN Reason: Opioid Reversal Nystatin (Nystatin 100,000 Unit/Ml Susp 500,000 Unit/5 Ml Cup) 500,000 unit PO QID [facility]; Protocol Last Admin: 07/22/22 21:42 Dose: 500,000 unit Pantoprazole Sodium (Pantoprazole 40 Mg Tablet) 40 mg PO AC-BRKFST [facility] Last Admin: 07/22/22 06:18 Dose: 40 mg Pramipexole Dihydrochloride (Pramipexole 0.125 Mg Tab) 0.125 mg PO BID [facility] Last Admin: 07/22/22 21:42 Dose: 0.125 mg Prednisone (Prednisone 20 Mg Tab) 40 mg PO DAILY [facility] Last Admin: 07/22/22 08:26 Dose: 40 mg Senna (Sennosides 8.6 Mg Tab) 8.6 mg PO DAILY PRN PRN Reason: Constipation Last Admin: 07/15/22 21:02 Dose: 8.6 mg Spironolactone (Spironolactone 25 Mg Tab) 25 mg PO DAILY [facility] Last Admin: 07/22/22 08:26 Dose: 25 mg PHYSICAL EXAMINATION: Patient is laying in the bed, no acute distress, awake, alert and oriented. Morbidly obese. Currently continued on 2 L HEENT: Normocephalic. Neck is supple. Pupils reactive. Nostrils clear. Oral cavity is moist. Neck reveals no JVD, carotid bruits, or thyromegaly. CHEST EXAMINATION: Trachea is central. Symmetrical expansion. Bilateral diffuse rhonchi with some faint crackles at the bases. Bibasilar diminished sounds. Nonlabored breathing. CARDIAC: S1, S2 are muffled, irregular ABDOMEN: Soft. Edematous, obese, Bowel sounds present. Lower left and right abdominal tenderness on palpation. No organomegaly. No abdominal bruits. Extremities: 2+ bilateral pedal edema, slightly improved from yesterday. No clubbing or cyanosis Neurologically awake, alert, oriented. Able to move all extremities. No gross focal deficits noted. Diffusely weak Skin: No rash or skin lesions. Psychiatric: Cooperative. Non-suicidal Musculoskeletal: No joint swelling or deformity. Normal range of motion. Assessment: Worsening shortness of breath which is multifactorial, due to acute CHF exacerbation as well as moderate persistent asthma Moderate persistent asthma with exacerbation Mouth and tongue pain, secondary to oral candidiasis Acute CHF with diastolic dysfunction with continued bilateral lower extremity edema , currently on IV Lasix drip Acute tracheobronchitis and possible pneumonia, pneumonia ruled out Obstructive sleep apnea not on CPAP at home Paroxysmal atrial fibrillation on anticoagulation with Coumadin. Status post episode of atrial fibrillation with RVR on 07/12/2022, currently rate controlled Left atrial thrombus and currently being anticoagulated with warfarin. Patient was supposed to get LENNY, Watchman procedure as an outpatient at [facility] and will follow-up outpatient Hypertension Morbid obesity with BMI of 40.7 Diabetes type 2, uncontrolled with hyperglycemia, also steroid effect History of nonalcoholic hepatic steatosis History of GERD status post Ambrose fundoplication Hypothyroidism Right ovarian mass currently under investigation as an outpatient Prior history of smoking quit 36 years ago History of subdural hematoma in January 2022 DVT prophylaxis, currently on Coumadin GI prophylaxis No code Plan: Patient is currently on 2 L nasal cannula oxygen. Weaning FiO2 as tolerated with pulmonary and cardiology following. Patient does not normally wear oxygen at home and will require 2 L via nasal cannula on discharge to manage COPD Nephrology and cardiology following as well maintained on IV Lasix drip with some minimal improvement in swelling and was also continued on metolazone although no significant improvement. Started on IV Diamox with nephrology following. Patient kidney functions currently stable and will follow-up with r epeat labs Patient with some mouth and tongue pain although improving after nystatin swish and swallow and will continue Recommend monitoring strict intake and output and continue with fluid restrict ions. Patient is receiving breathing treatments and steroids And transitioned to oral prednisone with pulmonary following Recommend continue monitoring Accu-Cheks before meals and at bedtime and use s liding scale along with long-acting Coumadin monitoring with pharmacy to dose, currently therapeutic Patient was supposed to follow-up with cardiology as an outpatient for LENNY with possible Watchman procedure at [facility] on 07/13 and was canceled due to being hospitalized. Will need to be rescheduled once respiratory status is more stable Encouraged increased activity as tolerated and encouraged oral intake. Patient has had prolonged hospitalization with weakness. Patient plans on returning home with family once stabilized and discharged although given her prolonged hospitalization and significant weakness patient may benefit from ECF and discussed with family member at bedside and they are adamant she is not going to rehab once discharged. Family reports they will make arrangements for home Will follow-up with labs in the a.m. The impression and plan of care has been dictated by Melissa Diaz, Nurse Practitioner as directed. Dr. Meri MD I have performed a history and examination and MDM of this patient, discussed the same with the dictator, and agree with the dictator's assessment and plan as written ,documented as a scribe. Based on total visit time, I have performed more than 50% of the visit. Objective - Vital Signs Vital signs: Vital Signs Temp 97.8 F 07/22/22 03:28 Pulse 68 07/22/22 03:28 Resp 22 07/22/22 03:28 BP 130/70 07/22/22 03:28 Pulse Ox 97 07/22/22 03:28 FiO2 29 07/09/22 08:00 Intake & Output 07/21/22 07/22/22 07/22/22 18:59 06:59 18:59 Intake Total 899.333 100 Output Total 850 1150 Balance 49.333 -1050 Intake: Intake, IV Titration 59.333 100 Amount Furosemide 100 mg In 59.333 100 Sodium Chloride 0.9% 90 ml @ 10 MG/HR 10 mls/hr IV .Q10H [facility] Rx#: [id number] Oral 840 Output: Urine 850 1150 Other: Voiding Method External Catheter External Catheter # Voids 1 # Bowel Movements 1 - Labs CBC & Chem 7: 07/22/22 07:41 07/22/22 07:41 Labs: Abnormal Lab Results - Last 24 Hours (Table) 07/21/22 07/21/22 07/21/22 Range/Units 08:26 08:26 11:27 PT 22.1 H (9.0-12.0) sec INR 2.3 H (<1.2) Sodium 134 L (137-145) mmol/L Chloride 91 L (98-107) mmol/L Carbon Dioxide 39 H (22-30) mmol/L BUN 87 H (7-17) mg/dL Creatinine 1.82 H (0.52-1.04) mg/dL Glucose 148 H (74-99) mg/dL POC Glucose (mg/dL) 173 H (70-110) mg/dL Total Bilirubin 5.7 H (0.2-1.3) mg/dL AST 68 H (14-36) U/L ALT 88 H (4-34) U/L Alkaline Phosphatase 259 H (38-126) U/L Total Protein 5.2 L (6.3-8.2) g/dL Albumin 2.6 L (3.5-5.0) g/dL 07/21/22 07/21/22 07/22/22 Range/Units 16:30 20:08 06:04 PT (9.0-12.0) sec INR (<1.2) Sodium (137-145) mmol/L Chloride (98-107) mmol/L Carbon Dioxide (22-30) mmol/L BUN (7-17) mg/dL Creatinine (0.52-1.04) mg/dL Glucose (74-99) mg/dL POC Glucose (mg/dL) 208 H 244 H 129 H (70-110) mg/dL Total Bilirubin (0.2-1.3) mg/dL AST (14-36) U/L ALT (4-34) U/L Alkaline Phosphatase (38-126) U/L Total Protein (6.3-8.2) g/dL Albumin (3.5-5.0) g/dL
[2022-07-23 06:14] LABS: Glucose,Whole Blood 162 mg/dL (70-110)
[2022-07-23] MEDS: LEVOTHYROXINE 50 MCG TAB PO SCH (06:36)
[2022-07-23] MEDS: PANTOPRAZOLE 40 MG TABLET PO SCH (06:36)
[2022-07-23] MEDS: INSULIN ASPART (NovoLOG) 100 UNIT/ML VIAL SQ SCH ×4 (06:39→20:44)
[2022-07-23] MEDS: MAGNESIUM OXIDE 400 MG TAB PO SCH (08:18)
[2022-07-23] MEDS: SPIRONOLACTONE 25 MG TAB PO SCH (08:18)
[2022-07-23] MEDS: predniSONE 20 MG TAB PO SCH (08:18)
[2022-07-23] MEDS: NYSTATIN 100,000 UNIT/ML SUSP 500,000 UNIT/5 ML CUP PO SCH ×4 (08:18→21:42)
[2022-07-23] MEDS: METOPROLOL TARTRATE 50 MG TAB PO SCH ×2 (08:19→21:38)
[2022-07-23] MEDS: INSULIN DETEMIR (LEVEMIR) 100 UNIT/ML SYR SQ SCH ×2 (08:19→21:40)
[2022-07-23] MEDS: ASCORBIC ACID 500 MG TAB PO SCH (08:19)
[2022-07-23] MEDS: CHOLECALCIFEROL 25 MCG (1000 IU) TABLET PO SCH (08:19)
[2022-07-23] MEDS: PRAMIPEXOLE 0.125 MG TAB PO SCH ×2 (08:19→21:38)
[2022-07-23] MEDS: IPRATROPIUM-ALBUTEROL 3 ML NEB INHALATION SCH ×4 (08:34→20:05)
[2022-07-23] MEDS: BUDESONIDE 1 MG/2 ML NEBU INHALATION SCH ×2 (08:34→20:06)
[2022-07-23 08:43] LABS: Basophils % (A) 0 %; Eosinophils # (A) 0.1 k/uL (0-0.7); Eosinophils % (A) 1 %; HCT 43.6 % (34.0-46.0); HGB 13.9 gm/dL (11.4-16.0); Lymphocytes # (A) 0.5 k/uL (1.0-4.8); Lymphocytes % (A) 4 %; MCHC 31.9 g/dL (31.0-37.0); MCV 103.3 fL (80.0-100.0); Macrocytosis Slight; Mean Platelet Volume 8.9; Monocytes # (A) 0.4 k/uL (0-1.0); Monocytes % (A) 3 %; Neutrophils % (A) 92 %; RBC 4.22 m/uL (3.80-5.40); RDW 14.2 % (11.5-15.5)
[2022-07-23 08:54] LABS: Platelet Count 59 k/uL (150-450)
[2022-07-23 09:03] LABS: Calcium 8.5 mg/dL (8.4-10.2); Potassium 3.5 mmol/L (3.5-5.1)
[2022-07-23 09:06] LABS: INR 2.2 (<1.2); Prothrombin Time 21.2 sec (9.0-12.0)
--- NOTE | 2022-07-23 10:18 | XR ---
EXAMINATION TYPE: XR chest 1V portable DATE OF EXAM: 07/23/2022 COMPARISON: 07/17/2022 HISTORY: Shortness of breath TECHNIQUE: Single frontal view of the chest is obtained. FINDINGS: There is interval increase in area of consolidation and small right effusion with tiny lef t effusion and diffuse interstitial pattern. Atrophic and degenerative changes of the spine. Atherosc lerotic change of the aorta. No pneumothorax. Arthropathy of the shoulders. IMPRESSION: Mild progression of findings most typical of CHF correlate clinically.
[2022-07-23 10:46] LABS: ABG Base Excess 19.8 mmol/L; ABG Oxygen Saturation 93.3 % (94-97); ABG PCO2 50 mmHg (35-45); ABG PH 7.54 (7.35-7.45); ABG PO2 65 mmHg (83-108); ABG TCO2 44 mmol/L (19-24); Allen Test Performed? Yes
[2022-07-23 10:57] LABS: ABG HCO3 42 mmol/L (21-25)
--- NOTE | 2022-07-23 11:03 | P.PN ---
Subjective Patient is seen for follow-up for acute kidney injury and volume overload. Patient remains on Lasix drip. Volume status has slowly been improving however patient remains short of breath. Maintained on 2 L nasal cannula 24 hour urine output documented at 2.3 L Serum creatinine at 2.2 Blood pressure remains low with systolic in the 90s Objective - Vital Signs Vital signs: Vital Signs Temp 98.0 F 07/23/22 08:00 Pulse 100 07/23/22 08:54 Resp 18 07/23/22 08:00 BP 98/60 07/23/22 08:00 Pulse Ox 94 L 07/23/22 08:00 FiO2 29 07/09/22 08:00 Intake & Output 07/22/22 07/23/22 07/23/22 18:59 06:59 18:59 Intake Total 640 305.167 Output Total 1250 1050 Balance -610 -744.833 Weight 97.5 kg Intake: Intake, IV Titration 100 68.167 Amount Furosemide 100 mg In 100 68.167 Sodium Chloride 0.9% 90 ml @ 10 MG/HR 10 mls/hr IV .Q10H [facility] Rx#: [id number] Oral 540 237 Output: Urine 1250 1050 Other: Voiding Method External Catheter External Catheter - Exam Patient is awake, comfortable, no acute distress Examination of the heart S1 and S2 Examination lungs decreased breath sounds at the bases Abdomen is soft distended nontender Examination lower extremity shows 3+ edema bilaterally [employer] exam grossly intact - Labs CBC & Chem 7: 07/23/22 07:35 07/23/22 07:35 Labs: Abnormal Lab Results - Last 24 Hours (Table) 07/22/22 07/22/22 07/22/22 Range/Units 07:41 12:41 16:47 WBC (3.8-10.6) k/uL MCV (80.0-100.0) fL Plt Count 52 L D (150-450) k/uL Neutrophils # 9.4 H (1.3-7.7) k/uL Lymphocytes # 0.4 L (1.0-4.8) k/uL PT (9.0-12.0) sec INR (<1.2) ABG pH (7.35-7.45) ABG pCO2 (35-45) mmHg ABG pO2 (83-108) mmHg ABG HCO3 (21-25) mmol/L ABG Total CO2 (19-24) mmol/L ABG O2 Saturation (94-97) % Sodium (137-145) mmol/L Chloride (98-107) mmol/L Carbon Dioxide (22-30) mmol/L BUN (7-17) mg/dL Creatinine (0.52-1.04) mg/dL Glucose (74-99) mg/dL POC Glucose (mg/dL) 164 H 265 H (70-110) mg/dL Ammonia (<30) umol/L 07/22/22 07/23/22 07/23/22 Range/Units 20:07 06:12 07:35 WBC (3.8-10.6) k/uL MCV (80.0-100.0) fL Plt Count (150-450) k/uL Neutrophils # (1.3-7.7) k/uL Lymphocytes # (1.0-4.8) k/uL PT 21.2 H (9.0-12.0) sec INR 2.2 H (<1.2) ABG pH (7.35-7.45) ABG pCO2 (35-45) mmHg ABG pO2 (83-108) mmHg ABG HCO3 (21-25) mmol/L ABG Total CO2 (19-24) mmol/L ABG O2 Saturation (94-97) % Sodium (137-145) mmol/L Chloride (98-107) mmol/L Carbon Dioxide (22-30) mmol/L BUN (7-17) mg/dL Creatinine (0.52-1.04) mg/dL Glucose (74-99) mg/dL POC Glucose (mg/dL) 303 H 162 H (70-110) mg/dL Ammonia (<30) umol/L 07/23/22 07/23/22 07/23/22 Range/Units 07:35 07:35 09:42 WBC 13.0 H (3.8-10.6) k/uL MCV 103.3 H (80.0-100.0) fL Plt Count 59 L (150-450) k/uL Neutrophils # 12.0 H (1.3-7.7) k/uL Lymphocytes # 0.5 L (1.0-4.8) k/uL PT (9.0-12.0) sec INR (<1.2) ABG pH (7.35-7.45) ABG pCO2 (35-45) mmHg ABG pO2 (83-108) mmHg ABG HCO3 (21-25) mmol/L ABG Total CO2 (19-24) mmol/L ABG O2 Saturation (94-97) % Sodium 134 L (137-145) mmol/L Chloride 87 L (98-107) mmol/L Carbon Dioxide 41 H* (22-30) mmol/L BUN 93 H (7-17) mg/dL Creatinine 2.22 H (0.52-1.04) mg/dL Glucose 126 H (74-99) mg/dL POC Glucose (mg/dL) (70-110) mg/dL Ammonia 106 H (<30) umol/L 07/23/22 Range/Units 10:41 WBC (3.8-10.6) k/uL MCV (80.0-100.0) fL Plt Count (150-450) k/uL Neutrophils # (1.3-7.7) k/uL Lymphocytes # (1.0-4.8) k/uL PT (9.0-12.0) sec INR (<1.2) ABG pH 7.54 H (7.35-7.45) ABG pCO2 50 H (35-45) mmHg ABG pO2 65 L (83-108) mmHg ABG HCO3 42 H* (21-25) mmol/L ABG Total CO2 44 H (19-24) mmol/L ABG O2 Saturation 93.3 L (94-97) % Sodium (137-145) mmol/L Chloride (98-107) mmol/L Carbon Dioxide (22-30) mmol/L BUN (7-17) mg/dL Creatinine (0.52-1.04) mg/dL Glucose (74-99) mg/dL POC Glucose (mg/dL) (70-110) mg/dL Ammonia (<30) umol/L Assessment and Plan Assessment: 1. Acute kidney injury secondary to vasomotor nephropathy secondary to cardiorenal syndrome and low blood pressure. Creatinin slightly increased at 2.2 today. UA benign. No hydronephrosis noted in the left kidney. [facility] ionable dilated upper collecting system. I we will add midodrine for low blood pressure. 2. Acute on chronic diastolic CHF with mild to moderate tricuspid and aortic regurgitation. 3. Volume overload. Ascites noted on ultrasound. 4. History of liver cirrhosis. 5. History of COPD. 6. Diabetes mellitus. 7. Metabolic alkalosis secondary to diuretics. Plan: Add midodrine Continue Lasix drip Repeat labs in a.m. Continue with Diamox
[2022-07-23] MEDS: LACTULOSE 20 GM/30 ML CUP PO SCH ×3 (11:25→21:34)
[2022-07-23 11:29] LABS: Glucose,Whole Blood 108 mg/dL (70-110)
[2022-07-23] MEDS: MIDODRINE 5 MG TAB PO SCH ×2 (12:11→17:10)
--- NOTE | 2022-07-23 13:27 | CT ---
EXAMINATION TYPE: CT brain wo con CT DLP: 1099.4 mGycm, Automated exposure control for dose reduction was used. DATE OF EXAM: 07/23/2022 1:07 PM COMPARISON: 04/11/2022 CLINICAL INDICATION:Female, 77 years old with history of AMS, TECHNIQUE: Brain: Axial CT images of the brain were obtained with coronal and sagittal reformats created and rev iewed. Contrast used: None. Oral contrast used: None. FINDINGS: Brain: Extra-axial spaces: No abnormal extra-axial fluid collections. Resolution of prior extra-axial fluid collections. Ventricular system: Within normal limits Cerebral parenchyma: No acute intraparenchymal hemorrhage or mass effect. The morales-white junction is well differentiated. Scattered hypoattenuating areas are seen within the white matter. Cerebellum: Unremarkable. Mass effect: No evidence of midline shift. Intracranial vasculature: Atherosclerotic calcifications of the intracranial vessels. High density cu rvilinear material seen within the muscles of the deep aspect of the calvarium. Soft tissues: Normal. Calvarium/osseous structures: No depressed skull fracture. Paranasal sinuses and mastoid air cells: Mild scattered paranasal sinus disease. Visualized orbits: Orbital contents are intact. IMPRESSION: 1. No acute intracranial process. 2. Nonspecific white matter changes, likely secondary to chronic small vessel ischemic disease.
--- NOTE | 2022-07-23 13:28 | P.PN ---
Subjective Progress Note Date: 07/23/22 The patient is seen today 07/23/2022 in follow-up on the selective care unit. She is a 77-year-old white female with a significant medical history for congestive heart failure, moderate persistent asthma, atrial fibrillation, left atrial appendage thrombus, diabetes mellitus type 2, hypertension, hypothy roidism, nonalcoholic cirrhosis of the liver, brain bleed, mild obstructive sleep apnea, remote history of smoking 36 years ago. He was admitted with increasing shortness of breath, orthopnea and lower extremity edema with weight gain as well as heart palpitations. She has been getting progressively more weak and lethargic. She is sitting up in a chair today. She arouses to verbal stimuli. She is answering some yes and no questions. Chest x-ray shows some mild progressions of findings typical of CHF. She remains on a Lasix drip at 10 mg per hour. She remains on Diamox. She remains on bronchodilators. She remains in a -1.3 L balance. Maintaining good O2 saturations in the upper 90s on 2 L/m per nasal cannula. White count 13.0. Hemoglobin 13.9. Platelets 59,000. INR 2.2. Sodium 134. Potassium 3.5. Chloride 87. Bicarb 41. BUN 93. Creatinine 2.22. Glucose 126. Ammonia level CVI. Arterial blood gases on 28% FiO2 revealed a PaO2 of 65, pCO2 of 50 and a pH of 7.54. Objective - Vital Signs Vital signs: Vital Signs Temp 97.9 F 07/23/22 12:00 Pulse 60 07/23/22 12:31 Resp 18 07/23/22 12:00 BP 92/58 07/23/22 12:00 Pulse Ox 99 07/23/22 12:00 FiO2 29 07/09/22 08:00 Intake & Output 07/22/22 07/23/22 07/23/22 18:59 06:59 18:59 Intake Total 640 305.167 100 Output Total 1250 1050 Balance -769 -949.061 100 Weight 97.5 kg Intake: Intake, IV Titration 100 68.167 100 Amount Furosemide 100 mg In 100 68.167 100 Sodium Chloride 0.9% 90 ml @ 10 MG/HR 10 mls/hr IV .Q10H [facility] Rx#: [id number] Oral 540 237 Output: Urine 1250 1050 Other: Voiding Method External Catheter External Catheter External Catheter - Exam GENERAL EXAM: Arousable, very weak, 77-year-old female, on 2 L nasal cannula, up in a chair. HEAD: Normocephalic. EYES: Normal reaction of pupils, equal size. NOSE: Clear with pink turbinates. THROAT: No erythema or exudates. NECK: No masses, no JVD. CHEST: No chest wall deformity. LUNGS: Equal air entry with few scattered rhonchi. CVS: S1 and S2 normal with no audible murmur, regular rhythm. ABDOMEN: Distended, ascites, normal bowel sounds, no guarding or rigidity. SPINE: No scoliosis or deformity SKIN: No rashes CENTRAL NERVOUS SYSTEM: No focal deficits, tone is normal in all 4 extremities. EXTREMITIES: There is 1-2+ peripheral edema. No clubbing, no cyanosis. Peripheral pulses are intact. - Labs CBC & Chem 7: 07/23/22 07:35 07/23/22 07:35 Labs: Abnormal Lab Results - Last 24 Hours (Table) 07/22/22 07/22/22 07/23/22 Range/Units 16:47 20:07 06:12 WBC (3.8-10.6) k/uL MCV (80.0-100.0) fL Plt Count (150-450) k/uL Neutrophils # (1.3-7.7) k/uL Lymphocytes # (1.0-4.8) k/uL PT (9.0-12.0) sec INR (<1.2) ABG pH (7.35-7.45) ABG pCO2 (35-45) mmHg ABG pO2 (83-108) mmHg ABG HCO3 (21-25) mmol/L ABG Total CO2 (19-24) mmol/L ABG O2 Saturation (94-97) % Sodium (137-145) mmol/L Chloride (98-107) mmol/L Carbon Dioxide (22-30) mmol/L BUN (7-17) mg/dL Creatinine (0.52-1.04) mg/dL Glucose (74-99) mg/dL POC Glucose (mg/dL) 265 H 303 H 162 H (70-110) mg/dL Ammonia (<30) umol/L 07/23/22 07/23/22 07/23/22 Range/Units 07:35 07:35 07:35 WBC 13.0 H (3.8-10.6) k/uL MCV 103.3 H (80.0-100.0) fL Plt Count 59 L (150-450) k/uL Neutrophils # 12.0 H (1.3-7.7) k/uL Lymphocytes # 0.5 L (1.0-4.8) k/uL PT 21.2 H (9.0-12.0) sec INR 2.2 H (<1.2) ABG pH (7.35-7.45) ABG pCO2 (35-45) mmHg ABG pO2 (83-108) mmHg ABG HCO3 (21-25) mmol/L ABG Total CO2 (19-24) mmol/L ABG O2 Saturation (94-97) % Sodium 134 L (137-145) mmol/L Chloride 87 L (98-107) mmol/L Carbon Dioxide 41 H* (22-30) mmol/L BUN 93 H (7-17) mg/dL Creatinine 2.22 H (0.52-1.04) mg/dL Glucose 126 H (74-99) mg/dL POC Glucose (mg/dL) (70-110) mg/dL Ammonia (<30) umol/L 07/23/22 07/23/22 Range/Units 09:42 10:41 WBC (3.8-10.6) k/uL MCV (80.0-100.0) fL Plt Count (150-450) k/uL Neutrophils # (1.3-7.7) k/uL Lymphocytes # (1.0-4.8) k/uL PT (9.0-12.0) sec INR (<1.2) ABG pH 7.54 H (7.35-7.45) ABG pCO2 50 H (35-45) mmHg ABG pO2 65 L (83-108) mmHg ABG HCO3 42 H* (21-25) mmol/L ABG Total CO2 44 H (19-24) mmol/L ABG O2 Saturation 93.3 L (94-97) % Sodium (137-145) mmol/L Chloride (98-107) mmol/L Carbon Dioxide (22-30) mmol/L BUN (7-17) mg/dL Creatinine (0.52-1.04) mg/dL Glucose (74-99) mg/dL POC Glucose (mg/dL) (70-110) mg/dL Ammonia 106 H (<30) umol/L Assessment and Plan Assessment: Acute exacerbation of asthma, as well as mild exacerbation of diastolic CHF, leading to hypoxemic respiratory failure. The pro-calcitonin level was normal. The chest x-ray initially was within normal limits and the patient is on a combination of bronchodilators and steroids. The viral serology was also negative. Echocardiogram shows a preserved LV function. Follow-up chest x-ray showing some mild. Question of findings most typical of CHF. She remains on a Lasix drip. Extensive lower extremity edema, currently on a Lasix drip with some interval worsening in the BUN and a creatinine on today's blood work. Generalized weakness, fatigue, lethargy. Ammonia level 106. History of paroxysmal atrial fibrillation. The INR is therapeutic at this point in time History of subdural hematoma, January 2022. History of rectal bleeding. Type 2 diabetes mellitus. Essential hypertension. Morbid obesity. Nonalcoholic steatohepatitis. Gastroesophageal reflux disease, without esophagitis, status post Ambrose fundoplication. History of hypothyroidism. Mild obstructive sleep apnea syndrome. Previous history of tobacco use. Right ovarian mass. Plan: The patient was seen and evaluated Chest x-ray, labs and medications reviewed Obtain a computed tomography scan of the brain Decrease Lasix drip to 5 mg an hour Continue Diamox Initiate lactulose 30 mg 3 times a day Prognosis is guarded DO NOT RESUSCITATE/DO NOT INTUBATE CODE STATUS We will continue to follow I have personally seen and examined the patient, performed the documentation and the assessment and plan as written. Number of minutes spent on the visit: 10.
[2022-07-23 16:31] LABS: Glucose,Whole Blood 140 mg/dL (70-110)
[2022-07-23] MEDS ORDERED: WARFARIN 0.5 MG TAB PO ONE (18:00)
--- NOTE | 2022-07-23 19:05 | P.PN ---
Subjective HISTORY OF PRESENTING ILLNESS Progress Note Date: 07/22/22 This is a 77 year old female patient with known history of intracranial bleed while on anticoagulation for paroxysmal atrial fibrillation, history of CVA as well with good recovery, previous MMA embolization, type 2 diabetes, hypertension, hyperlipidemia, noncritical coronary artery disease on catheterization November. She is a patient of Dr. ELVIRA Patton and follows with Dr. Lindsey and scheduled for watchman procedure on July 13. Patient presented with increasing shortness of breath appears to be COPD exacerbation with bronchial asthma. A cardiogram was completed revealed normal LV systolic function with moderate MR, mild to moderate AI and mild to moderate TR. She rem ains on warfarin and pharmacy is dosing. 07/20/2022 She was seen and examined resting comfortably in a chair. She has been ordered to start Lasix drip by nephrology. She remains on metolazone. Her breathing is a bit better but she continues to have significant lower extremity edema. 07/21/2022 The patient was seen and examined resting in bed. Continues to be on Lasix drip per nephrology. Remains on metolazone. She feels her breathing is a bit better today but stills remains heavy at times. Continues to have significant lower extremity edema. Labs this morning showed BUN of 87 and creatinine 1.8 to from 86 and 1.58 respectively yesterday. 07/22/2022 Patient was seen and examined resting in bed. She continues to complain of shallow breathing. Does not feel her edema has improved. Nephrology continues to follow and has discontinued metolazone added Diamox. We have also consulted interventional radiology for possible paracentesis. She continues on IV Lasix drip. Labs this morning showed an INR of 2.2, pharmacy continues to dose Coumadin. BUN 96, creatinine 1.75 with a bicarb of 41. 07/23 Patient seen and examined. White blood cell count 13.0, hemoglobin 13.9, creatinine increased to 2.2, bicarb 41. Ammonia increased to 106. Given patient is on Coumadin no paracentesis recommended. Patient's family considering comfort palliative care options. Patient denies any chest pain or pressure. Admits shortness of breath about the same. Has had little change in lower extremity edema. PHYSICAL EXAMINATION Vital signs reviewed. CONSTITUTIONAL: Chronically ill appearing, lethargic HEENT: Head is normocephalic. Pupils are equal, round. Sclerae anicteric. Mucous membranes of the mouth are moist. No JVD. No carotid bruit. CHEST EXAMINATION: Lungs are clear to auscultation. No chest wall tenderness is noted on palpation or with deep breathing. HEART EXAMINATION: Regular rate and rhythm. S1, S2 heard. No murmurs, gallops or rub. ABDOMEN: Soft, nontender. Positive bowel sounds. EXTREMITIES: 2+ peripheral pulses, 2+ ower extremity edema, no calf tenderness. NEUROLOGIC EXAMINATION: Patient is awake, somnolent. Assessment: Acute COPD exacerbation Tracheobronchitis Bronchial asthma Acute on chronic congestive heart failure with preserved ejection fraction, EF 55-60% Nonobstructive coronary artery disease Left atrial thrombus with plan for watchman procedure-to be rescheduled Paroxysmal atrial fibrillation History of intracranial bleed History of CVA Hypertension Hyperlipidemia Diabetes mellitus type 2 Valvular heart disease Acute kidney injury, secondary to diuresis Acute liver injury, elevated bilirubin Plan: Patient with worsening kidney function as well as worsening liver functions and elevated bilirubin of unclear etiology. She has not been eating or drinking much and despite lower extremity edema concern of possible overdiuresis/decreased intervascular volume. Some degree of third spacing with decreased albumin levels, protein calorie malnutrition. If family desiring would consider right heart catheterization to further assess volume status. Echo not insistent with overwhelming right-sided heart failure to explain hepatic congestion and rule out other causes of liver failure. Prognosis guarded. Objective - Vital Signs Vital signs: Vital Signs Temp 97.9 F 07/23/22 15:26 Pulse 84 07/23/22 16:25 Resp 18 07/23/22 15:26 BP 126/58 07/23/22 15:26 Pulse Ox 96 07/23/22 15:26 FiO2 29 07/09/22 08:00 Intake & Output 07/22/22 07/23/22 07/23/22 18:59 06:59 18:59 Intake Total 640 305.167 100 Output Total 1250 1050 500 Balance -610 -744.833 -400 Weight 97.5 kg Intake: Intake, IV Titration 100 68.167 100 Amount Furosemide 100 mg In 100 68.167 100 Sodium Chloride 0.9% 90 ml @ 5 MG/HR 5 mls/hr IV .Q20H [facility] Rx#:[id number] Oral 540 237 0 Output: Urine 1250 1050 500 Other: Voiding Method External Catheter External Catheter External Catheter - Labs CBC & Chem 7: 07/23/22 07:35 07/23/22 07:35 Labs: Abnormal Lab Results - Last 24 Hours (Table) 07/22/22 07/23/22 07/23/22 Range/Units 20:07 06:12 07:35 WBC (3.8-10.6) k/uL MCV (80.0-100.0) fL Plt Count (150-450) k/uL Neutrophils # (1.3-7.7) k/uL Lymphocytes # (1.0-4.8) k/uL PT 21.2 H (9.0-12.0) sec INR 2.2 H (<1.2) ABG pH (7.35-7.45) ABG pCO2 (35-45) mmHg ABG pO2 (83-108) mmHg ABG HCO3 (21-25) mmol/L ABG Total CO2 (19-24) mmol/L ABG O2 Saturation (94-97) % Sodium (137-145) mmol/L Chloride (98-107) mmol/L Carbon Dioxide (22-30) mmol/L BUN (7-17) mg/dL Creatinine (0.52-1.04) mg/dL Glucose (74-99) mg/dL POC Glucose (mg/dL) 303 H 162 H (70-110) mg/dL Ammonia (<30) umol/L 07/23/22 07/23/22 07/23/22 Range/Units 07:35 07:35 09:42 WBC 13.0 H (3.8-10.6) k/uL MCV 103.3 H (80.0-100.0) fL Plt Count 59 L (150-450) k/uL Neutrophils # 12.0 H (1.3-7.7) k/uL Lymphocytes # 0.5 L (1.0-4.8) k/uL PT (9.0-12.0) sec INR (<1.2) ABG pH (7.35-7.45) ABG pCO2 (35-45) mmHg ABG pO2 (83-108) mmHg ABG HCO3 (21-25) mmol/L ABG Total CO2 (19-24) mmol/L ABG O2 Saturation (94-97) % Sodium 134 L (137-145) mmol/L Chloride 87 L (98-107) mmol/L Carbon Dioxide 41 H* (22-30) mmol/L BUN 93 H (7-17) mg/dL Creatinine 2.22 H (0.52-1.04) mg/dL Glucose 126 H (74-99) mg/dL POC Glucose (mg/dL) (70-110) mg/dL Ammonia 106 H (<30) umol/L 07/23/22 07/23/22 Range/Units 10:41 16:27 WBC (3.8-10.6) k/uL MCV (80.0-100.0) fL Plt Count (150-450) k/uL Neutrophils # (1.3-7.7) k/uL Lymphocytes # (1.0-4.8) k/uL PT (9.0-12.0) sec INR (<1.2) ABG pH 7.54 H (7.35-7.45) ABG pCO2 50 H (35-45) mmHg ABG pO2 65 L (83-108) mmHg ABG HCO3 42 H* (21-25) mmol/L ABG Total CO2 44 H (19-24) mmol/L ABG O2 Saturation 93.3 L (94-97) % Sodium (137-145) mmol/L Chloride (98-107) mmol/L Carbon Dioxide (22-30) mmol/L BUN (7-17) mg/dL Creatinine (0.52-1.04) mg/dL Glucose (74-99) mg/dL POC Glucose (mg/dL) 140 H (70-110) mg/dL Ammonia (<30) umol/L
[2022-07-23 19:55] LABS: Glucose,Whole Blood 139 mg/dL (70-110)
--- NOTE | 2022-07-23 20:12 | P.PN ---
Subjective Progress Note Date: 07/23/22 Patient is a 77-year-old female with a past medical history of COPD presents to ER with complaints of worsening shortness of breath for the past 7 days and weight gain about 3 pounds. Initial laboratory test showed WBC 3.9 hemoglobin 12.0 and platelets 145 BUN 23 and creatinine 0.86 AST 65 ALT 34 alk phos 186 and proBNP 1700 and procalcitonin level was 0.13. Albumin 2.5. Urinalysis negative for infection. COVID-19, influenza A B and RSV PCR not detected. 07/09/2022 Patient is currently lying in the bed. Patient is on Airvo 35 L at 30% FiO2. Patient has been afebrile overnight. Was having cough with brown sputum production. No complaints of chest pain.No nausea vomiting abdominal pain or diarrhea. Chest x-ray showed improving volume overload or pulmonary edema. Laboratory data showed WBC 3.3 hemoglobin 12.2 and platelets 136 INR 1.7 Sodium 137 potassium 4.1 chloride 103 bicarb is 30 BUN 25 and creatinine 0.98 and blood sugar is 197. Calcium 7.9. 07/10/2022 Patient is seen and evaluated in follow-up today with pulmonary and cardiology following. Patient continues to have shortness of breath and maintained on oxygen with pulmonary following and patient is receiving IV ceftriaxone and has finished a Zithromax. Patient is on Coumadin with pharmacy to dose and also being maintained on IV Lasix with dose being adjusted to 40 mg twice daily and will continue. Patient does continue on IV steroids and would recommend monitoring Accu-Cheks before meals and at bedtime and use sliding scale as needed. Patient does not normally wear oxygen in the outpatient setting and recommended wean FiO2 as tolerated and will evaluate for possible home O2 requirements. Patient is currently afebrile, denies chest pain or palpitations. Patient is reporting that she is eating with occasional nausea with no vomiting noted. Encouraged increase activity as tolerated. 07/11/2022 Patient is seen and evaluated in follow-up today currently maintained on IV Lasix and kidney function stable and diuresing well with cardiology and pulmonary following closely. Patient also maintained on IV steroids along with breathing treatments and 3 L of oxygen via nasal cannula. Patient continues to report a junky cough although reports is having some improvements in her shortness of breath. Patient reports not a significant improvement. Patient is afebrile maintained on antibiotics and will continue for now. Patient denies worsening shortness of breath, chest pains, or palpitations. No reports of nausea or vomiting and patient is tolerating diet. Encouraged increased activity as tolerated. Recommend follow-up labs to monitor electrolytes and kidney functions closely. 07/12/2022 Patient is seen and evaluated in follow-up today and is maintained on telemetry monitoring with pulmonary and cardiology following. Patient reports there was an episode of atrial for ablation with RVR and cardiology was notified and given an extra dose of metoprolol and is currently sinus rhythm. Patient continues to report shortness of breath with wheezing and crackles noted. Patient is continued on IV steroids along with breathing treatments and pulmonary is following closely. Patient reports she feels quite frustrated with not getting better and wants to go home. Her follow-up LENNY for possible watchman device has been rescheduled. Patient is currently afebrile with no reports of chest pain or palpitations. No reports of nausea vomiting and patient tolerating diet. Encouraged oral intake. 07/13/2022 Patient is seen in follow-up this morning continues to be short of breath with wheezing and bronchospastic. Patient is maintained on inhalers along with breathing treatments, IV steroids, IV ceftriaxone along with IV Lasix with pulmonary and cardiology following closely. Patient is continued on 3 L via nasal cannula and reports does not wear any oxygen at home. Patient appears winded during conversation and takes multiple breaks to catch her breath. Will follow up on chest x-ray in the a.m. Patient is currently afebrile with no reports of chest pain or palpitations. Patient continues with a cough with difficulty expectorating any phlegm. No reports of nausea vomiting and patient is tolerating diet encourage small frequent meals. Patient is weak and with prolonged hospitalization would recommend possible physical therapy evaluation. Patient's blood sugars being monitored with Accu-Cheks and has sliding scale and will continue with current regimen. 07/14/2022 Patient is currently resting in the bed. Awake alert and oriented x3. Currently requiring 2 L oxygen via nasal cannula. Still complains of shortness of breath and tightness. Bilateral wheezing and scattered rhonchi especially in the basilar on physical exam. No complaints of chest pain. No nausea vomiting abdominal pain or diarrhea. Tolerating oral diet. Was also complaining of constipation. Patient is being continued on IV Solu-Medrol 60 mg every 6 hourly and is also on Lasix 40 mg every 12 IV. Pulmonary and cardiology is on board. Most recent Laboratory data reviewed. 07/15/2022 Patient states that she feels better today. Breathing status is improving. Requiring oxygen at 2 L via nasal cannula. No complaints of chest pain. Less bronchospastic today. Otherwise patient is being continued on Solu-Medrol 60 mg every 6 hourly patient is also on Lasix 40 mg every 12. Laboratory showed WBC 9.3 hemoglobin 14.1 platelets 127 INR 2.8 BUN 15 creatinine 1.14 and blood sugar is 235. Patient will be started on insulin regimen. 07/16/2022 Patient is seen and evaluated and follow-up this morning with cardiology and pulmonary following. Patient is maintained on IV steroids along with breathing treatments and weaning as tolerated down to 2 L via nasal cannula. Patient also maintained on IV Lasix and continues to have lower extremity edema and continued shortness of breath. Kidney functions are being monitored and creatinine trending down. Patient is maintained on Coumadin with pharmacy to dose and INR was 3.0 today. Recommend monitoring INR levels closely. Patient is requiring assistance with getting up and will add PT/OT therapy for evaluation. Patient reports she will be going home once stabilized and discharged. Patient is currently afebrile with no reports of chest pain or palpitations. Patient continues to report shortness of breath although no worse. Patient has had prolonged hospitalization extremely slow to improve. Will follow-up labs in the a.m. 07/17/2022 Patient is seen and evaluated in follow-up today with pulmonary and cardiology following. Patient has been switched to oral Lasix elbow continues to have significant lower extremity edema with shortness of breath and overload. We'll transition Lasix back to IV at 60 mg twice a day and follow-up with repeat labs. Current creatinine is 1.2. Patient reports is making urine but unsure how much in intake and output is not being documented strictly. Patient did have some increased abdominal distention and reports not having much of bowel movements will order abdominal x-ray and follow-up chest x-ray from today is pending. Patient is currently afebrile and denies chest pain or palpitations. No reports of nausea or vomiting and patient is tolerating diet. 07/18/2022 Patient is seen in follow-up this morning continues to report shortness of breath and maintained on 2 L via nasal cannula. Cardiology following recommending transitioning back to oral Lasix although pulmonary has continued with IV Lasix for continued lower extremity edema. Will add compression stockings as well. Patient does continue with weakness and has had prolonged hospitalization will consult PT/OT therapy and discuss again further with case management along with patient about possible ECF. Patient reports she will be returning home although given her significant comorbidities and prolonged ho spitalization patient may benefit from ECF for continued strength and mobility prior to returning home. Patient is currently afebrile denies chest pain or palpitations. Patient is tolerating oral intake and was continued on IV steroids which are being transitioned to oral prednisone. 07/19/2022 Patient is seen and evaluated in follow-up this morning currently sitting up in the chair with at bedside. Patient is continued on 2 L via nasal cannula and patient reports dyspnea although feels somewhat improved. Patient is very slow to progress and is continued on breathing treatments and has been transitioned oral steroids. Patient's blood sugars elevated and will increase long-acting and continue sliding scale monitor Accu-Cheks before meals and at bedtime. Patient also continues on IV Lasix although having some worsening in kidney functions and nephrology was consulted. Recommend fluid restrictions and awaiting abdominal ultrasound. Patient will be continued on IV Lasix and attempted CAMRYN hose although unable to tolerate. Patient does continue with bilateral lower extremity edema 2+ pitting. Afebrile with no reports of nausea or vomiting noted. Patient continues to report shortness of breath and denies chest pain or palpitations. 07/20/2022 Patient is seen and evaluated in follow-up this morning currently getting up to work with physical therapy. Patient does continue with significant weakness and reports she would like to be held to return home. Case management is following in the event patient does agree to go to rehab. Patient also continues on 2 L via nasal cannula and does not wear oxygen outpatient. Patient being followed by cardiology along with pulmonary and nephrology. Patient does continue with significant lower extremity edema and is being started on IV Lasix drip and also continued with metolazone. patient was noted to have ascites noted on imaging of the abdomen. Patient is afebrile report shortness of breath with exertion although reports is somewhat improved and denies chest pain or palpitations. Patient is tolerating diet although having some tongue and mouth pain. Appears to be oral thrush and will add nystatin swish and swallow. Recommend continue monitoring Accu-Cheks before meals and at bedtime and continue with current medication regimen. 07/21/2022 Patient is seen this morning continues on IV Lasix drip with multiple medical consultations following including nephrology, cardiology, pulmonary. Patient continues with generalized edema noted with significant lower extremity edema. Patient continues to endorse shortness of breath and currently maintained on 2 L. Patient does have mouth pain although feels slightly improved and maintained on nystatin. Patient is afebrile with no reports of chest pain or palpitations noted. Oral intake is fair. Blood sugars have been. Will will continue monitoring Accu-Cheks per protocol and will continue current regimen. Patient is receiving DuoNeb treatments as well as oral steroids at this point. Patient with prolonged hospitalization and significant weakness would recommend physical therapy daily. Encouraged increased activity as tolerated with getting up out of the bed more frequently. Patient reports to be lethargic and fatigued today. 07/22/2022 Patient is seated follow-up this morning maintained on IV Lasix and being started on IV Diamox with nephrology following. Cardiology and pulmonary following as well patient is maintained on oral prednisone along with breathing treatments and continued on 2 L via nasal cannula. Patient reports continued shortness of breath and having some abdominal discomfort although generalized. Patient did have an abdominal x-ray which was showing some ascites and interventional radiology pain consulted for possible paracentesis for evaluation. Patient is having some variable blood sugars are mildly elevated and will slightly increase long-acting and continue with sliding scale and Accu- Cheks before meals and at bedtime. Recommend continue with fluid extractions and consistent carb diet. Patient with significant weakness being followed by physical therapy. Family at bedside with questions and concerns were answered to the best of our ability. Patient is currently afebrile denies chest pain or palpitations. 07/23/2022 patient is seen and evaluated in follow-up today with multiple family members present. Patient is maintained on Lasix drip along with IV Diamox and continues to have lower extremity weakness. Edema. Patient is lethargic and somewhat confused with continued shortness of breath. Patient maintained on 2-3 L via nasal cannula and will continue. Ammonia level ordered along with ABG and CT of the brain. Patient's kidney functions slightly worsened and creatinine is 2.2 today. Patient is afebrile maintained on nystatin swish and swallow. Patient not eating very much and dietary is consulted. Chest x-ray shows continued congestion and there is ascites noted on the abdominal x-ray. Interventional radiology was consulted although patient received her Coumadin and INR is 2.2 today. Will hold Coumadin and follow up with repeat labs in the a.m. for possible interventional radiology evaluation for palliative paracentesis. Overall prognosis remains extremely guarded at this time. Review of systems: Constitutional: reports of fatigue today, no fever, or chills Cardiovascular: No reports of chest pain or palpitations Respiratory: Reports of continued shortness of breath GI: No reports of nausea, vomiting, or diarrhea, reports very little appetite a nd not eating very well at all continued abdominal pain diffuse : No reports of dysuria or retention Neurovascular: reports of generalized weakness All medications have been reviewed Active Medications Acetaminophen (Acetaminophen Tab 325 Mg Tab) 650 mg PO Q6H PRN PRN Reason: Mild Pain or Fever > 100.5 Last Admin: 07/23/22 15:54 Dose: 650 mg Acetazolamide Sodium (Acetazolamide Sodium 500 Mg Vial) 250 mg IV Q12HR [facility] Last Admin: 07/23/22 10:38 Dose: 250 mg Albuterol/Ipratropium (Ipratropium-Albuterol 3 Ml Neb) 3 ml INHALATION RT-QID [facility] Last Admin: 07/23/22 16:16 Dose: 3 ml Ascorbic Acid (Ascorbic Acid 500 Mg Tab) 1,000 mg PO DAILY [facility] Last Admin: 07/23/22 08:19 Dose: 1,000 mg Budesonide (Budesonide 1 Mg/2 Ml Nebu) 1 mg INHALATION RT-BID [facility] Last Admin: 07/23/22 08:34 Dose: 1 mg Cholecalciferol (Cholecalciferol 25 Mcg (1000 Iu) Tablet) 25 mcg PO DAILY [facility] Last Admin: 07/23/22 08:19 Dose: 25 mcg Citalopram Hydrobromide (Citalopram Hydrobromide 20 Mg Tab) 20 mg PO HS [facility] Last Admin: 07/22/22 21:42 Dose: 20 mg Dextrose/Water (Dextrose 50% Syringe 50 Ml) 25 ml IVP PER PROTOCOL PRN; Protocol PRN Reason: Hypoglycemia Dextrose/Water (Dextrose 50% Syringe 50 Ml) 50 ml IVP PER PROTOCOL PRN; Protocol PRN Reason: Hypoglycemia Ferrous Sulfate (Ferrous Sulfate 325 Mg Tab) 325 mg PO Q48H [facility] Last Admin: 07/22/22 08:27 Dose: 325 mg Furosemide 100 mg/ Sodium (Chloride) 100 mls @ 5 mls/hr IV .Q20H [facility] Last Admin: 07/23/22 11:17 Dose: 5 mg/hr, 5 mls/hr Insulin Aspart (Insulin Aspart (Novolog) 100 Unit/Ml Vial) 0 unit SQ ACHS [facility]; Protocol Last Admin: 07/23/22 16:48 Dose: Not Given Insulin Detemir (Insulin Detemir (Levemir) 100 Unit/Ml Syr) 17 unit SQ BID@0700,2100 [facility] Last Admin: 07/23/22 08:19 Dose: 17 unit Lactulose (Lactulose 20 Gm/30 Ml Cup) 30 gm PO TID [facility] Last Admin: 07/23/22 15:21 Dose: 30 gm Levothyroxine Sodium (Levothyroxine 50 Mcg Tab) 50 mcg PO DAILY@0630 [facility] Last Admin: 07/23/22 06:36 Dose: 50 mcg Magnesium Oxide (Magnesium Oxide 400 Mg Tab) 400 mg PO DAILY [facility] Last Admin: 07/23/22 08:18 Dose: 400 mg Metoprolol Tartrate (Metoprolol Tartrate 50 Mg Tab) 50 mg PO BID [facility] Last Admin: 07/23/22 08:19 Dose: 50 mg Midodrine (Midodrine 5 Mg Tab) 5 mg PO AC-TID [facility] Last Admin: 07/23/22 17:10 Dose: 5 mg Naloxone HCl (Naloxone 0.4 Mg/Ml 1 Ml Vial) 0.2 mg IVP Q2M PRN PRN Reason: Opioid Reversal Nystatin (Nystatin 100,000 Unit/Ml Susp 500,000 Unit/5 Ml Cup) 500,000 unit PO QID [facility]; Protocol Last Admin: 07/23/22 17:10 Dose: 500,000 unit Pantoprazole Sodium (Pantoprazole 40 Mg Tablet) 40 mg PO AC-BRKFST [facility] Last Admin: 07/23/22 06:36 Dose: 40 mg Pramipexole Dihydrochloride (Pramipexole 0.125 Mg Tab) 0.125 mg PO BID [facility] Last Admin: 07/23/22 08:19 Dose: 0.125 mg Prednisone (Prednisone 20 Mg Tab) 40 mg PO DAILY [facility] Last Admin: 07/23/22 08:18 Dose: 40 mg Senna (Sennosides 8.6 Mg Tab) 8.6 mg PO DAILY PRN PRN Reason: Constipation Last Admin: 07/15/22 21:02 Dose: 8.6 mg PHYSICAL EXAMINATION: Patient is sitting up in the chair, awake , alert and oriented1-2 with confusion . Morbidly obese. Currently continued on 2 L HEENT: Normocephalic. Neck is supple. Pupils reactive. Nostrils clear. Oral cavity is moist. Neck reveals no JVD, carotid bruits, or thyromegaly. CHEST EXAMINATION: Trachea is central. Symmetrical expansion. Bilateral diffuse rhonchi with some faint crackles at the bases. Bibasilar diminished sounds. Nonlabored breathing. CARDIAC: S1, S2 are muffled, irregular ABDOMEN: Soft. Edematous, obese, Bowel sounds present. Lower left and right abdominal tenderness on palpation. No organomegaly. No abdominal bruits. Extremities: 2+ bilateral pedal edema, slightly improved from yesterday. No clu bbing or cyanosis Neurologically awake, alert, oriented Is 1-2 today. Able to move all extremities. No gross focal deficits noted. Diffusely weak Skin: No rash or skin lesions. Psychiatric: Cooperative. Non-suicidal Musculoskeletal: No joint swelling or deformity. Normal range of motion. Assessment: Worsening shortness of breath which is multifactorial, due to acute CHF exacerbation as well as moderate persistent asthma Moderate persistent asthma with exacerbation Mouth and tongue pain, secondary to oral candidiasis Confusion, multifactorial possibly secondary to toxic metabolic acidosis from medication effect or worsening kidney and liver functions Hyperbilirubinemia Acute CHF with diastolic dysfunction with continued bilateral lower extremity edema , currently on IV Lasix drip Acute tracheobronchitis, pneumonia ruled out Obstructive sleep apnea not on CPAP at home Paroxysmal atrial fibrillation on anticoagulation with Coumadin. currently rate controlled, Left atrial thrombus and currently being anticoagulated with warfarin. Patient was supposed to get LENNY, Watchman procedure as an outpatient at [facility] and will follow-up outpatient Hypertension, currently hypotensive concerned for overdiuresis with hypovolemia while maintained on Lasix drip Morbid obesity with BMI of 40.7 Diabetes type 2, uncontrolled with hyperglycemia, also steroid effect History of nonalcoholic hepatic steatosis History of GERD status post Ambrose fundoplication Hypothyroidism Right ovarian mass currently under investigation as an outpatient Prior history of smoking quit 36 years ago History of subdural hematoma in January 2022 DVT prophylaxis, currently on Coumadin GI prophylaxis No code Plan: Patient is currently on 2 L nasal cannula oxygen. Weaning FiO2 as tolerated with pulmonary and cardiology following. Patient does not normally wear oxygen at home and will require 2 L via nasal cannula on discharge to manage COPD Nephrology and cardiology following as well maintained on IV Lasix drip with some minimal improvement in swelling and also IV Diamox Kidney functions are worsening currently 2.2 today and patient is having some hypotension will continue Lasix drip per nephrology and add midodrine Patient with some mouth and tongue pain although improving after nystatin swish and swallow and will continue. Patient is not eating very well and not maintaining adequate nutrition Will add supplements and continue to encourage oral intake Recommend monitoring strict intake and output and continue with fluid restrictions. Patient is receiving breathing treatments and steroids And transitioned to oral prednisone with pulmonary following Recommend continue monitoring Accu-Cheks before meals and at bedtime and use sliding scale along with long-acting Coumadin monitoring with pharmacy to dose, currently therapeutic, interventional radiology was consulted for possible paracentesis palliative although INR is 2.2 and will hold Coumadin and follow-up with INR Patient was supposed to follow-up with cardiology as an outpatient for LENNY with possible Watchman procedure at [facility] on 07/13 and was canceled due to being hospitalized. Will need to be rescheduled once respiratory status is more stable Encouraged increased activity as tolerated and encouraged oral intake. Patient has had prolonged hospitalization with weakness. Patient plans on returning home with family once stabilized and discharged although given her prolonged hospitalization and significant weakness patient may benefit from ECF and discussed with family member at bedside and they are adamant she is not going to rehab once discharged. Family reports they will make arrangements for home. Family members at bedside again and discussed overall prognosis and discussing palliative versus hospice and would like to discuss further with other family members to consider possible hospice Will follow-up with labs in the a.m. Overall prognosis is extremely poor and guarded at this time. The impression and plan of care has been dictated by Melissa Diaz, Nurse Practitioner as directed. Dr. Meri MD I have performed a history and examination and MDM of this patient, discussed the same with the dictator, and agree with the dictator's assessment and plan as written ,documented as a scribe. Based on total visit time, I have performed more than 50% of the visit. Objective - Vital Signs Vital signs: Vital Signs Temp 98.0 F 07/23/22 08:00 Pulse 100 07/23/22 08:54 Resp 18 07/23/22 08:00 BP 98/60 07/23/22 08:00 Pulse Ox 94 L 07/23/22 08:00 FiO2 29 07/09/22 08:00 Intake & Output 07/22/22 07/23/22 07/23/22 18:59 06:59 18:59 Intake Total 640 305.167 Output Total 1250 1050 Balance -610 -744.833 Weight 97.5 kg Intake: Intake, IV Titration 100 68.167 Amount Furosemide 100 mg In 100 68.167 Sodium Chloride 0.9% 90 ml @ 10 MG/HR 10 mls/hr IV .Q10H [facility] Rx#: [id number] Oral 540 237 Output: Urine 1250 1050 Other: Voiding Method External Catheter External Catheter - Labs CBC & Chem 7: 07/23/22 07:35 07/23/22 07:35 Labs: Abnormal Lab Results - Last 24 Hours (Table) 07/22/22 07/22/22 07/22/22 Range/Units 07:41 12:41 16:47 WBC (3.8-10.6) k/uL MCV 101.9 H (80.0-100.0) fL Plt Count 52 L D (150-450) k/uL Neutrophils # 9.4 H (1.3-7.7) k/uL Lymphocytes # 0.4 L (1.0-4.8) k/uL PT (9.0-12.0) sec INR (<1.2) Sodium (137-145) mmol/L Chloride (98-107) mmol/L Carbon Dioxide (22-30) mmol/L BUN (7-17) mg/dL Creatinine (0.52-1.04) mg/dL Glucose (74-99) mg/dL POC Glucose (mg/dL) 164 H 265 H (70-110) mg/dL 07/22/22 07/23/22 07/23/22 Range/Units 20:07 06:12 07:35 WBC (3.8-10.6) k/uL MCV (80.0-100.0) fL Plt Count (150-450) k/uL Neutrophils # (1.3-7.7) k/uL Lymphocytes # (1.0-4.8) k/uL PT 21.2 H (9.0-12.0) sec INR 2.2 H (<1.2) Sodium (137-145) mmol/L Chloride (98-107) mmol/L Carbon Dioxide (22-30) mmol/L BUN (7-17) mg/dL Creatinine (0.52-1.04) mg/dL Glucose (74-99) mg/dL POC Glucose (mg/dL) 303 H 162 H (70-110) mg/dL 07/23/22 07/23/22 Range/Units 07:35 07:35 WBC 13.0 H (3.8-10.6) k/uL MCV 103.3 H (80.0-100.0) fL Plt Count 59 L (150-450) k/uL Neutrophils # 12.0 H (1.3-7.7) k/uL Lymphocytes # 0.5 L (1.0-4.8) k/uL PT (9.0-12.0) sec INR (<1.2) Sodium 134 L (137-145) mmol/L Chloride 87 L (98-107) mmol/L Carbon Dioxide 41 H* (22-30) mmol/L BUN 93 H (7-17) mg/dL Creatinine 2.22 H (0.52-1.04) mg/dL Glucose 126 H (74-99) mg/dL POC Glucose (mg/dL) (70-110) mg/dL
[2022-07-23] MEDS: CITALOPRAM HYDROBROMIDE 20 MG TAB PO SCH (21:38)
[2022-07-24] MEDS: FUROSEMIDE 100 MG in SODIUM CHLORIDE 0.9% 90 ML IV SCH (03:50)
[2022-07-24 05:51] LABS: Glucose,Whole Blood 134 mg/dL (70-110)
[2022-07-24] MEDS: INSULIN ASPART (NovoLOG) 100 UNIT/ML VIAL SQ SCH (06:14)
[2022-07-24] MEDS: MIDODRINE 5 MG TAB PO SCH ×2 (06:32→06:38)
[2022-07-24] MEDS: PANTOPRAZOLE 40 MG TABLET PO SCH (06:32)
[2022-07-24] MEDS: INSULIN DETEMIR (LEVEMIR) 100 UNIT/ML SYR SQ SCH ×2 (06:32→08:29)
[2022-07-24] MEDS: LEVOTHYROXINE 50 MCG TAB PO SCH ×2 (06:32→06:38)
[2022-07-24 08:42] LABS: Basophils % (A) 0 %; Eosinophils % (A) 0 %; HGB 13.7 gm/dL (11.4-16.0); Lymphocytes # (A) 0.5 k/uL (1.0-4.8); Lymphocytes % (A) 4 %; MCHC 31.9 g/dL (31.0-37.0); MCV 100.6 fL (80.0-100.0); Macrocytosis Slight; Mean Platelet Volume 8.8; Monocytes # (A) 0.4 k/uL (0-1.0); Monocytes % (A) 3 %; Neutrophils # (A) 11.4 k/uL (1.3-7.7); Neutrophils % (A) 92 %; RBC 4.27 m/uL (3.80-5.40); RDW 14.8 % (11.5-15.5); WBC 12.4 k/uL (3.8-10.6)
[2022-07-24 08:54] LABS: Platelet Count 37 k/uL (150-450)
[2022-07-24 09:02] LABS: Calcium 8.6 mg/dL (8.4-10.2); Potassium 3.1 mmol/L (3.5-5.1)
[2022-07-24 09:17] LABS: INR 2.3 (<1.2); Prothrombin Time 22.7 sec (9.0-12.0)
[2022-07-24 09:24] VITALS: TEMP 96.5
[2022-07-24] MEDS: BUDESONIDE 1 MG/2 ML NEBU INHALATION SCH (10:00)
[2022-07-24] MEDS: IPRATROPIUM-ALBUTEROL 3 ML NEB INHALATION SCH ×2 (10:00→12:59)
[2022-07-24] MEDS: CHOLECALCIFEROL 25 MCG (1000 IU) TABLET PO SCH (10:44)
[2022-07-24] MEDS: ASCORBIC ACID 500 MG TAB PO SCH (10:44)
[2022-07-24] MEDS: MAGNESIUM OXIDE 400 MG TAB PO SCH (10:45)
[2022-07-24] MEDS: NYSTATIN 100,000 UNIT/ML SUSP 500,000 UNIT/5 ML CUP PO SCH (10:45)
[2022-07-24] MEDS: PRAMIPEXOLE 0.125 MG TAB PO SCH (10:45)
[2022-07-24] MEDS: FERROUS SULFATE 325 MG TAB PO SCH (10:45)
[2022-07-24] MEDS: predniSONE 20 MG TAB PO SCH (10:45)
[2022-07-24] MEDS: METOPROLOL TARTRATE 50 MG TAB PO SCH (10:45)
[2022-07-24 10:52] LABS: ALT 85 U/L (4-34); AST 70 U/L (14-36)
--- NOTE | 2022-07-24 11:55 | P.PN ---
Subjective Patient is seen for follow-up for acute kidney injury and volume overload. Patient remains on Lasix drip. Patient's general condition has changed significantly since yesterday. She is much less responsive today. Patient is not able to tolerate oral intake. He is maintained on 3 L nasal cannula. Guzman catheter was inserted due to decreased urine output and 450 ML of urine was obtained. Overall output was about 1.5 L for 24 hours. Blood pressure had been low for which midodrine was started however patient is not able to take oral meds anymore Family is present at bedside and options regarding hospice care being considered. Objective - Vital Signs Vital signs: Vital Signs Temp 96.5 F L 07/24/22 08:00 Pulse 100 07/24/22 10:12 Resp 16 07/24/22 08:00 BP 124/71 07/24/22 08:00 Pulse Ox 96 07/24/22 10:04 FiO2 29 07/09/22 08:00 Intake & Output 07/23/22 07/24/22 07/24/22 18:59 06:59 18:59 Intake Total 100 82.333 Output Total 500 700 450 Balance -400 -617.667 -450 Intake: Intake, IV Titration 100 82.333 Amount Furosemide 100 mg In 100 82.333 Sodium Chloride 0.9% 90 ml @ 5 MG/HR 5 mls/hr IV .Q20H [facility] Rx#:[id number] Oral 0 Output: Urine 500 700 450 Uretheral (Guzman) 450 Other: Voiding Method External Catheter External Catheter External Catheter # Bowel Movements 1 - Exam Patient is sleeping, lethargic not easily arousable Examination of the heart S1 and S2 Examination lungs decreased breath sounds at the bases Abdomen is soft distended nontender Examination lower extremity shows 3+ edema bilaterally [employer]ARY SUPERVISOR exam grossly intact - Labs CBC & Chem 7: 07/24/22 08:11 07/24/22 08:11 Labs: Abnormal Lab Results - Last 24 Hours (Table) 07/23/22 07/23/22 07/24/22 Range/Units 16:27 19:51 05:49 WBC (3.8-10.6) k/uL MCV (80.0-100.0) fL Plt Count (150-450) k/uL Neutrophils # (1.3-7.7) k/uL Lymphocytes # (1.0-4.8) k/uL PT (9.0-12.0) sec INR (<1.2) Sodium (137-145) mmol/L Potassium (3.5-5.1) mmol/L Chloride (98-107) mmol/L Carbon Dioxide (22-30) mmol/L BUN (7-17) mg/dL Creatinine (0.52-1.04) mg/dL Glucose (74-99) mg/dL POC Glucose (mg/dL) 140 H 139 H 134 H (70-110) mg/dL AST (14-36) U/L ALT (4-34) U/L Ammonia (<30) umol/L 07/24/22 07/24/22 07/24/22 Range/Units 08:11 08:11 08:11 WBC 12.4 H (3.8-10.6) k/uL MCV 100.6 H (80.0-100.0) fL Plt Count 37 L (150-450) k/uL Neutrophils # 11.4 H (1.3-7.7) k/uL Lymphocytes # 0.5 L (1.0-4.8) k/uL PT 22.7 H (9.0-12.0) sec INR 2.3 H (<1.2) Sodium 136 L (137-145) mmol/L Potassium 3.1 L (3.5-5.1) mmol/L Chloride 89 L (98-107) mmol/L Carbon Dioxide 39 H (22-30) mmol/L BUN 98 H (7-17) mg/dL Creatinine 2.20 H (0.52-1.04) mg/dL Glucose 132 H (74-99) mg/dL POC Glucose (mg/dL) (70-110) mg/dL AST (14-36) U/L ALT (4-34) U/L Ammonia (<30) umol/L 07/24/22 07/24/22 Range/Units 10:23 10:23 WBC (3.8-10.6) k/uL MCV (80.0-100.0) fL Plt Count (150-450) k/uL Neutrophils # (1.3-7.7) k/uL Lymphocytes # (1.0-4.8) k/uL PT (9.0-12.0) sec INR (<1.2) Sodium (137-145) mmol/L Potassium (3.5-5.1) mmol/L Chloride (98-107) mmol/L Carbon Dioxide (22-30) mmol/L BUN (7-17) mg/dL Creatinine (0.52-1.04) mg/dL Glucose (74-99) mg/dL POC Glucose (mg/dL) (70-110) mg/dL AST 70 H (14-36) U/L ALT 85 H (4-34) U/L Ammonia 114 H (<30) umol/L Assessment and Plan Assessment: 1. Acute kidney injury secondary to vasomotor nephropathy secondary to cardiorenal syndrome and low blood pressure. Creatinine staying at about 2.2. UA benign. No hydronephrosis noted in the left kidney. Questionable dilated upper collecting system. Maintained on midodrine however patient is not able to take oral meds today 2. Acute on chronic diastolic CHF with mild to moderate tricuspid and aortic regurgitation. 3. Volume overload. Ascites noted on ultrasound. 4. History of liver cirrhosis. 5. History of COPD. 6. Diabetes mellitus. 7. Metabolic alkalosis secondary to diuretics. Plan: Change Lasix drip to IV push Lasix Replace potassium Continue with Diamox Overall prognosis is guarded. Agree with discussion regarding hospice care
--- NOTE | 2022-07-24 12:37 | P.PN ---
Subjective Progress Note Date: 07/24/22 The patient is seen today 07/23/2022 in follow-up on the selective care unit. She is a 77-year-old white female with a significant medical history for congestive heart failure, moderate persistent asthma, atrial fibrillation, left atrial appendage thrombus, diabetes mellitus type 2, hypertension, hypothy roidism, nonalcoholic cirrhosis of the liver, brain bleed, mild obstructive sleep apnea, remote history of smoking 36 years ago. He was admitted with increasing shortness of breath, orthopnea and lower extremity edema with weight gain as well as heart palpitations. She has been getting progressively more weak and lethargic. She is sitting up in a chair today. She arouses to verbal stimuli. She is answering some yes and no questions. Chest x-ray shows some mild progressions of findings typical of CHF. She remains on a Lasix drip at 10 mg per hour. She remains on Diamox. She remains on bronchodilators. She remains in a -1.3 L balance. Maintaining good O2 saturations in the upper 90s on 2 L/m per nasal cannula. White count 13.0. Hemoglobin 13.9. Platelets 59,000. INR 2.2. Sodium 134. Potassium 3.5. Chloride 87. Bicarb 41. BUN 93. Creatinine 2.22. Glucose 126. Ammonia level CVI. Arterial blood gases on 28% FiO2 revealed a PaO2 of 65, pCO2 of 50 and a pH of 7.54. The patient is seen today 07/24/2022 in follow-up on the selective care unit. She continues to be a bit more obtunded and not eating or drinking. Taking nothing by mouth. She is maintaining O2 saturations in the upper 90s on 3 L/m per nasal cannula. She's been afebrile. Hemodynamically stable. Computed tomography scan of the brain revealed no acute intracranial process. White count 12.4. Hemoglobin 13.7. Platelet count 37,000. INR 2.3. Sodium 136. Potassium 3.1. Bicarb 39. BUN 98. Creatinine 2.20. Glucose 132. AST 70. ALT 85. Ammonia level 114. She remains on lactulose. Continued on bronchodilators, prednisone taper. Currently on a Lasix drip at 5 mg per hour. Currently in a -1 L balance. Objective - Vital Signs Vital signs: Vital Signs Temp 96.5 F L 07/24/22 08:00 Pulse 100 07/24/22 10:12 Resp 16 07/24/22 08:00 BP 124/71 07/24/22 08:00 Pulse Ox 96 07/24/22 10:04 FiO2 29 07/09/22 08:00 Intake & Output 07/23/22 07/24/22 07/24/22 18:59 06:59 18:59 Intake Total 100 82.333 Output Total 500 700 450 Balance -400 -617.667 -450 Intake: Intake, IV Titration 100 82.333 Amount Furosemide 100 mg In 100 82.333 Sodium Chloride 0.9% 90 ml @ 5 MG/HR 5 mls/hr IV .Q20H [facility] Rx#:[id number] Oral 0 Output: Urine 500 700 450 Uretheral (Guzman) 450 Other: Voiding Method External Catheter External Catheter External Catheter # Bowel Movements 1 - Exam GENERAL EXAM: Arousable, lethargic, 77-year-old female, on 3 L nasal cannula, currently resting in bed. HEAD: Normocephalic. EYES: Normal reaction of pupils, equal size. NOSE: Clear with pink turbinates. THROAT: No erythema or exudates. NECK: No masses, no JVD. CHEST: No chest wall deformity. LUNGS: Equal air entry with few scattered rhonchi. CVS: S1 and S2 normal with no audible murmur, regular rhythm. ABDOMEN: Distended, ascites, normal bowel sounds, no guarding or rigidity. SPINE: No scoliosis or deformity SKIN: No rashes CENTRAL NERVOUS SYSTEM: Arousable, lethargic. No focal deficits, tone is normal in all 4 extremities. EXTREMITIES: There is 1-2+ peripheral edema. No clubbing, no cyanosis. Peripheral pulses are intact. - Labs CBC & Chem 7: 07/24/22 08:11 07/24/22 08:11 Labs: Abnormal Lab Results - Last 24 Hours (Table) 07/23/22 07/23/22 07/24/22 Range/Units 16:27 19:51 05:49 WBC (3.8-10.6) k/uL MCV (80.0-100.0) fL Plt Count (150-450) k/uL Neutrophils # (1.3-7.7) k/uL Lymphocytes # (1.0-4.8) k/uL PT (9.0-12.0) sec INR (<1.2) Sodium (137-145) mmol/L Potassium (3.5-5.1) mmol/L Chloride (98-107) mmol/L Carbon Dioxide (22-30) mmol/L BUN (7-17) mg/dL Creatinine (0.52-1.04) mg/dL Glucose (74-99) mg/dL POC Glucose (mg/dL) 140 H 139 H 134 H (70-110) mg/dL AST (14-36) U/L ALT (4-34) U/L Ammonia (<30) umol/L 07/24/22 07/24/22 07/24/22 Range/Units 08:11 08:11 08:11 WBC 12.4 H (3.8-10.6) k/uL MCV 100.6 H (80.0-100.0) fL Plt Count 37 L (150-450) k/uL Neutrophils # 11.4 H (1.3-7.7) k/uL Lymphocytes # 0.5 L (1.0-4.8) k/uL PT 22.7 H (9.0-12.0) sec INR 2.3 H (<1.2) Sodium 136 L (137-145) mmol/L Potassium 3.1 L (3.5-5.1) mmol/L Chloride 89 L (98-107) mmol/L Carbon Dioxide 39 H (22-30) mmol/L BUN 98 H (7-17) mg/dL Creatinine 2.20 H (0.52-1.04) mg/dL Glucose 132 H (74-99) mg/dL POC Glucose (mg/dL) (70-110) mg/dL AST (14-36) U/L ALT (4-34) U/L Ammonia (<30) umol/L 07/24/22 07/24/22 Range/Units 10:23 10:23 WBC (3.8-10.6) k/uL MCV (80.0-100.0) fL Plt Count (150-450) k/uL Neutrophils # (1.3-7.7) k/uL Lymphocytes # (1.0-4.8) k/uL PT (9.0-12.0) sec INR (<1.2) Sodium (137-145) mmol/L Potassium (3.5-5.1) mmol/L Chloride (98-107) mmol/L Carbon Dioxide (22-30) mmol/L BUN (7-17) mg/dL Creatinine (0.52-1.04) mg/dL Glucose (74-99) mg/dL POC Glucose (mg/dL) (70-110) mg/dL AST 70 H (14-36) U/L ALT 85 H (4-34) U/L Ammonia 114 H (<30) umol/L Assessment and Plan Assessment: Acute exacerbation of asthma, as well as mild exacerbation of diastolic CHF, leading to hypoxemic respiratory failure. The pro-calcitonin level was normal. The chest x-ray initially was within normal limits and the patient is on a combination of bronchodilators and steroids. The viral serology was also negati ve. Echocardiogram shows a preserved LV function. Follow-up chest x-ray showing some mild progressions of findings most of CHF. She remains on a Lasix drip. Extensive lower extremity edema, currently on a Lasix drip with some interval worsening in the BUN and a creatinine Generalized weakness, fatigue, lethargy. Ammonia level 114 History of paroxysmal atrial fibrillation. The INR is therapeutic at this point in time History of subdural hematoma, January 2022. History of rectal bleeding. Type 2 diabetes mellitus. Essential hypertension. Morbid obesity. Nonalcoholic steatohepatitis. Gastroesophageal reflux disease, without esophagitis, status post Ambrose fundoplication. History of hypothyroidism. Mild obstructive sleep apnea syndrome. Previous history of tobacco use. Right ovarian mass. Plan: The patient was seen and evaluated CT brain, labs and medications reviewed Increased lactulose 30 mg to 4 times a day Continue diuretics, Diamox More somnolent today Prognosis is guarded DO NOT RESUSCITATE/DO NOT INTUBATE CODE STATUS Family is considering hospice/comfort care I have personally seen and examined the patient, performed the documentation and the assessment and plan as written. Number of minutes spent on the visit: 10.
[2022-07-24] MEDS ORDERED: LACTULOSE 20 GM/30 ML CUP PO SCH (13:00)
[2022-07-24 15:23] VITALS: BP 116/70; PULSE 90; RESP 18
--- NOTE | 2022-07-24 21:43 | P.PN ---
Subjective HISTORY OF PRESENTING ILLNESS This is a 77 year old female patient with known history of intracranial bleed while on anticoagulation for paroxysmal atrial fibrillation, history of CVA as well with good recovery, previous MMA embolization, type 2 diabetes, hypertension, hyperlipidemia, noncritical coronary artery disease on catheterization November. She is a patient of Dr. ELVIRA Patton and follows with Dr. Lindsey and scheduled for watchman procedure on July 13. Patient presented with increasing shortness of breath appears to be COPD exacerbation with bronchial asthma. A cardiogram was completed revealed normal LV systolic function with moderate MR, mild to moderate AI and mild to moderate TR. She remains on warfarin and pharmacy is dosing. 07/20/2022 She was seen and examined resting comfortably in a chair. She has been ordered to start Lasix drip by nephrology. She remains on metolazone. Her breathing is a bit better but she continues to have significant lower extremity edema. 07/21/2022 The patient was seen and examined resting in bed. Continues to be on Lasix drip per nephrology. Remains on metolazone. She feels her breathing is a bit better today but stills remains heavy at times. Continues to have significant lower extremity edema. Labs this morning showed BUN of 87 and creatinine 1.8 to from 86 and 1.58 respectively yesterday. 07/22/2022 Patient was seen and examined resting in bed. She continues to complain of shallow breathing. Does not feel her edema has improved. Nephrology continues to follow and has discontinued metolazone added Diamox. We have also consulted interventional radiology for possible paracentesis. She continues on IV Lasix drip. Labs this morning showed an INR of 2.2, pharmacy continues to dose Coumadin. BUN 96, creatinine 1.75 with a bicarb of 41. 07/23 Patient seen and examined. White blood cell count 13.0, hemoglobin 13.9, creatinine increased to 2.2, bicarb 41. Ammonia increased to 106. Given patient is on Coumadin no paracentesis recommended. Patient's family considering comfort palliative care options. Patient denies any chest pain or pressure. Admits shortness of breath about the same. Has had little change in lower extremity edema. 07/24 Patient seen and examined. Family decided to make patient hospice and appears comfortable. Cr at 2.2. PHYSICAL EXAMINATION Vital signs reviewed. CONSTITUTIONAL: Chronically ill appearing, lethargic HEENT: Head is normocephalic. Pupils are equal, round. Sclerae anicteric. Mucous membranes of the mouth are moist. No JVD. No carotid bruit. CHEST EXAMINATION: Lungs are clear to auscultation. No chest wall tenderness is noted on palpation or with deep breathing. HEART EXAMINATION: Regular rate and rhythm. S1, S2 heard. No murmurs, gallops or rub. ABDOMEN: Soft, nontender. Positive bowel sounds. EXTREMITIES: 2+ peripheral pulses, 2+ ower extremity edema, no calf tenderness. NEUROLOGIC EXAMINATION: Patient is awake, somnolent. Assessment: Acute COPD exacerbation Tracheobronchitis Bronchial asthma Acute on chronic congestive heart failure with preserved ejection fraction, EF 55-60% Nonobstructive coronary artery disease Left atrial thrombus with plan for watchman procedure-to be rescheduled Paroxysmal atrial fibrillation History of intracranial bleed History of CVA Hypertension Hyperlipidemia Diabetes mellitus type 2 Valvular heart disease Acute kidney injury, secondary to diuresis Acute liver injury, elevated bilirubin Plan: Appears hospice appropriate and continue with current supportive care. Discussed with family at bedside. Appears comfortable. Objective - Vital Signs Vital signs: Vital Signs Temp 96.5 F L 07/24/22 08:00 Pulse 90 07/24/22 12:00 Resp 18 07/24/22 12:00 BP 116/70 07/24/22 12:00 Pulse Ox 96 07/24/22 12:00 FiO2 29 07/09/22 08:00 Intake & Output 07/24/22 07/24/22 07/25/22 06:59 18:59 06:59 Intake Total 82.333 Output Total 700 450 Balance -617.667 -450 Intake: Intake, IV Titration 82.333 Amount Furosemide 100 mg In 82.333 Sodium Chloride 0.9% 90 ml @ 5 MG/HR 5 mls/hr IV .Q20H [facility] Rx#:[id number] Output: Urine 700 450 Uretheral (Guzman) 450 Other: Voiding Method External Catheter External Catheter # Bowel Movements 1 - Labs CBC & Chem 7: 07/24/22 08:11 07/24/22 08:11 Labs: Abnormal Lab Results - Last 24 Hours (Table) 07/24/22 07/24/22 07/24/22 Range/Units 05:49 08:11 08:11 WBC 12.4 H (3.8-10.6) k/uL MCV 100.6 H (80.0-100.0) fL Plt Count 37 L (150-450) k/uL Neutrophils # 11.4 H (1.3-7.7) k/uL Lymphocytes # 0.5 L (1.0-4.8) k/uL PT 22.7 H (9.0-12.0) sec INR 2.3 H (<1.2) Sodium (137-145) mmol/L Potassium (3.5-5.1) mmol/L Chloride (98-107) mmol/L Carbon Dioxide (22-30) mmol/L BUN (7-17) mg/dL Creatinine (0.52-1.04) mg/dL Glucose (74-99) mg/dL POC Glucose (mg/dL) 134 H (70-110) mg/dL AST (14-36) U/L ALT (4-34) U/L Ammonia (<30) umol/L 07/24/22 07/24/22 07/24/22 Range/Units 08:11 10:23 10:23 WBC (3.8-10.6) k/uL MCV (80.0-100.0) fL Plt Count (150-450) k/uL Neutrophils # (1.3-7.7) k/uL Lymphocytes # (1.0-4.8) k/uL PT (9.0-12.0) sec INR (<1.2) Sodium 136 L (137-145) mmol/L Potassium 3.1 L (3.5-5.1) mmol/L Chloride 89 L (98-107) mmol/L Carbon Dioxide 39 H (22-30) mmol/L BUN 98 H (7-17) mg/dL Creatinine 2.20 H (0.52-1.04) mg/dL Glucose 132 H (74-99) mg/dL POC Glucose (mg/dL) (70-110) mg/dL AST 70 H (14-36) U/L ALT 85 H (4-34) U/L Ammonia 114 H (<30) umol/L
--- NOTE | 2022-07-25 05:15 | P.DS ---
Providers Date of admission: 07/08/22 14:18 Expected date of discharge: 07/24/22 Attending physician: Salinas Prince Consults: 07/08/22 14:14 Consult Physician Routine Consulting Provider: [facility] Consult Reason/Comments: Pulmonary edema Do you want consulting provider notified?: Yes Consult Physician Routine Consulting Provider: Shakira Anne Consult Reason/Comments: COPD Do you want consulting provider notified?: Yes 07/18/22 13:27 Consult Physician Routine Consulting Provider: Faustino Johnson Consult Reason/Comments: lasix recom Do you want consulting provider notified?: Yes Primary care physician: Nan Bro [facility] Course: Final diagnosis Worsening shortness of breath which is multifactorial, due to acute CHF exacerbation as well as moderate persistent asthma Moderate persistent asthma with exacerbation Mouth and tongue pain, secondary to oral candidiasis Confusion, multifactorial possibly secondary to toxic metabolic acidosis from medication effect or worsening kidney and liver functions Hyperbilirubinemia Acute CHF with diastolic dysfunction with continued bilateral lower extremity edema , currently on IV Lasix drip Acute tracheobronchitis, pneumonia ruled out Obstructive sleep apnea not on CPAP at home Paroxysmal atrial fibrillation on anticoagulation with Coumadin. currently rate controlled, Left atrial thrombus and currently being anticoagulated with warfarin. Patient was supposed to get LENNY, Watchman procedure as an outpatient at [facility] and will follow-up outpatient Hypertension, currently hypotensive concerned for overdiuresis with hypovolemia while maintained on Lasix drip Morbid obesity with BMI of 40.7 Diabetes type 2, uncontrolled with hyperglycemia, also steroid effect History of nonalcoholic hepatic steatosis History of GERD status post Ambrose fundoplication Hypothyroidism Right ovarian mass currently under investigation as an outpatient Prior history of smoking quit 36 years ago History of subdural hematoma in January 2022 DVT prophylaxis, currently on Coumadin GI prophylaxis No code Discharge disposition Patient is being transitioned to [facility] inpatient hospice with comfort measures. Total time taken is greater than 35 minutes. Hospital course This is a 77-year-old female who is awake although not alert and unresponsive and has had progressive clinical decline. Patient's respiratory status stable also liver and kidney functions are worsening despite Lasix drip and diuresis patient continued to deteriorate and discussion was had about possible hospice. Current hospice met with family and decided to proceed with comfort measures. Patient had been no code per her request. Patient will be transitioned to inpatient hospice with the current hospice services and comfort measures only. No reports of chest pain or shortness of breath patient is not eating and not tolerating any oral intake. Overall prognosis is extremely poor Physical exam: Gen: This is a 77-year-old female who is asleep, minimally arousable, obese, ill-appearing, pale with some jaundice HEENT: Head is atraumatic, normocephalic. Pupils equal, round. Sclerae is anicteric. NECK: Supple. No JVD. No lymphadenopathy. No thyromegaly. LUNGS: Diminished breath sounds bilaterally No wheezes or rhonchi. No intercostal retractions. HEART: S1-S2 muffled ABDOMEN: Soft. Bowel sounds are present. No masses. No tenderness. EXTREMITIES: No pedal edema. No calf tenderness. Generalized edema noted throughout with 2-3+ pitting lower extremity edema NEUROLOGICAL: Patient is alert and oriented x0. Obtunded, weak Please refer to medication reconciliation sheet for a list of medications. The impression and plan of care has been dictated by Melissa Diaz, Nurse Practitioner as directed. MD Yovani I have performed a history and examination and MDM of this patient, discussed the same with the dictator, and agree with the dictator's assessment and plan as written ,documented as a scribe. Based on total visit time, I have performed more than 50% of the visit. Patient Condition at Discharge: Poor Plan - Discharge Summary Discharge Rx Participant: No New Discharge Prescriptions: No Action Citalopram Hydrobromide [CeleXA] 20 mg PO HS Spironolactone [Aldactone] 25 mg PO BID Albuterol Nebulized [Ventolin Nebulized] 2.5 mg INHALATION RT-Q6H PRN PRN Reason: Shortness Of Breath Lansoprazole [Prevacid] 30 mg PO DAILY Pramipexole [Mirapex] 0.125 mg PO BID Levothyroxine Sodium [Euthyrox] 50 mcg PO DAILY Ascorbic Acid [Vitamin C] 1,000 mg PO DAILY atenoloL 100 mg PO DAILY PRN PRN Reason: HIGH BLOOD PRESSURE Cholecalciferol [Vitamin D3 (25 Mcg = 1000 Iu)] 25 mcg PO DAILY Metoprolol Tartrate [Lopressor] 50 mg PO BID Acetaminophen Tab [Tylenol] 650 mg PO Q6H PRN PRN Reason: Pain Or Fever > 100.5 Magnesium 250 mg PO DAILY Warfarin [Coumadin] 1 mg PO SA Albuterol Inhaler [Ventolin Hfa Inhaler] 2 puff INHALATION RT-Q6H PRN PRN Reason: Shortness Of Breath Ferrous Sulfate [Iron (65 MG Elemental)] 325 mg PO Q48H Warfarin [Coumadin] 0.5 mg PO SUMOTUWETHFR Furosemide [Lasix] 40 mg PO BID@0900,1600 Discharge Medication List Citalopram Hydrobromide [CeleXA] 20 mg PO HS 02/28/15 [History] Albuterol Nebulized [Ventolin Nebulized] 2.5 mg INHALATION RT-Q6H PRN 10/22/19 [History] Ascorbic Acid [Vitamin C] 1,000 mg PO DAILY 10/22/19 [History] Lansoprazole [Prevacid] 30 mg PO DAILY 10/22/19 [History] Levothyroxine Sodium [Euthyrox] 50 mcg PO DAILY 10/22/19 [History] Pramipexole [Mirapex] 0.125 mg PO BID 10/22/19 [History] Spironolactone [Aldactone] 25 mg PO BID 10/22/19 [History] atenoloL 100 mg PO DAILY PRN 12/04/19 [History] Acetaminophen Tab [Tylenol] 650 mg PO Q6H PRN 06/18/22 [History] Albuterol Inhaler [Ventolin Hfa Inhaler] 2 puff INHALATION RT-Q6H PRN 06/18/22 [History] Cholecalciferol [Vitamin D3 (25 Mcg = 1000 Iu)] 25 mcg PO DAILY 06/18/22 [History] Ferrous Sulfate [Iron (65 MG Elemental)] 325 mg PO Q48H 06/18/22 [History] Magnesium 250 mg PO DAILY 06/18/22 [History] Metoprolol Tartrate [Lopressor] 50 mg PO BID 06/18/22 [History] Warfarin [Coumadin] 0.5 mg PO SUMOTUWETHFR 06/18/22 [History] Furosemide [Lasix] 40 mg PO BID@0900,1600 07/08/22 [History] Warfarin [Coumadin] 1 mg PO SA 07/08/22 [History] Follow up Appointment(s)/Referral(s): Nan Bro MD [Primary Care Provider] - 1-2 days Osorio Gupta MD [STAFF PHYSICIAN] - 07/25/22 10:00 am [facility] Visiting Nurse, [NON-STAFF] - Activity/Diet/Wound Care/Special Instructions: Patient is going to [facility] hospice meeting inpatient criteria comfort measures only Discharge Disposition: DISCH TO HOSPICE MED FACILTY
== END 2022-07-24 14:02 | disposition hospice, inpatient (51) | DRG 291 ==
LOC: EC 12:57 → 3SCARD 14:18
PROVIDERS: ADMIT Hospitalist; ATTEND Hospitalist
PROC: 0D9670Z Drainage of Stomach with Drainage Device, Via Natural or Artificial Opening (ICD-10-PCS; principal; 2022-07-24)
DX: I13.0 Hypertensive heart and chronic kidney disease with heart failure and stage 1 through stage 4 chronic kidney disease, or unspecified chronic kidney disease (principal); G92.8 Other toxic encephalopathy; I50.33 Acute on chronic diastolic (congestive) heart failure; N17.0 Acute kidney failure with tubular necrosis; B37.0 Candidal stomatitis; E87.3 Alkalosis; J44.0 Chronic obstructive pulmonary disease with (acute) lower respiratory infection; J44.1 Chronic obstructive pulmonary disease with (acute) exacerbation; J45.41 Moderate persistent asthma with (acute) exacerbation; R18.8 Other ascites; Z68.41 Body mass index [BMI] 40.0-44.9, adult; E87.20 Acidosis, unspecified; I47.1 Supraventricular tachycardia; K76.82 Hepatic encephalopathy; K75.81 Nonalcoholic steatohepatitis (NASH); K74.60 Unspecified cirrhosis of liver; E11.22 Type 2 diabetes mellitus with diabetic chronic kidney disease; E11.65 Type 2 diabetes mellitus with hyperglycemia; E66.01 Morbid (severe) obesity due to excess calories; E03.9 Hypothyroidism, unspecified; Z20.822 Contact with and (suspected) exposure to COVID-19; Z66 Do not resuscitate; I95.9 Hypotension, unspecified; Z51.5 Encounter for palliative care; Z79.01 Long term (current) use of anticoagulants; F32.A Depression, unspecified; I08.3 Combined rheumatic disorders of mitral, aortic and tricuspid valves; G47.33 Obstructive sleep apnea (adult) (pediatric); N18.9 Chronic kidney disease, unspecified; I25.10 Atherosclerotic heart disease of native coronary artery without angina pectoris; I48.0 Paroxysmal atrial fibrillation; J20.9 Acute bronchitis, unspecified; K14.6 Glossodynia; G43.909 Migraine, unspecified, not intractable, without status migrainosus; E78.5 Hyperlipidemia, unspecified; E80.6 Other disorders of bilirubin metabolism; K21.00 Gastro-esophageal reflux disease with esophagitis, without bleeding; K59.00 Constipation, unspecified; K21.9 Gastro-esophageal reflux disease without esophagitis; R13.10 Dysphagia, unspecified; N83.9 Noninflammatory disorder of ovary, fallopian tube and broad ligament, unspecified; T50.2X5A Adverse effect of carbonic-anhydrase inhibitors, benzothiadiazides and other diuretics, initial encounter; Z79.890 Hormone replacement therapy; Z79.899 Other long term (current) drug therapy; Z86.73 Personal history of transient ischemic attack (TIA), and cerebral infarction without residual deficits; Z88.1 Allergy status to other antibiotic agents; Z88.5 Allergy status to narcotic agent; Z88.0 Allergy status to penicillin; Z88.8 Allergy status to other drugs, medicaments and biological substances; Z71.3 Dietary counseling and surveillance; Z87.891 Personal history of nicotine dependence; F41.9 Anxiety disorder, unspecified; K44.9 Diaphragmatic hernia without obstruction or gangrene; Z87.19 Personal history of other diseases of the digestive system; M19.90 Unspecified osteoarthritis, unspecified site
CPT/HCPCS: 36415; 36600; 70450; 71045; 71046; 74018; 76705; 76770; 80048; 80053; 81003; 82040; 82140; 82805; 83036; 83605; 83735; 83880; 84145; 84450; 84460; 84484; 85025; 85610; 85730; 87040; 87636; 93005; 93306; 94640; 94760; 96374; 96375; 99291

== ENCOUNTER 2022-07-24 13:58 | Inpatient (IN) | payer MEDICAID ==
[2022-07-24] MEDS ORDERED: ONDANSETRON 4 MG/2 ML VIAL IVP PRN (14:06)
[2022-07-24] MEDS ORDERED: ACETAMINOPHEN SUPPOSITORY 650 MG SUPP RECTAL PRN (14:06)
[2022-07-24] MEDS ORDERED: LORazepam 2 MG/ML INJ IV PRN (14:06)
[2022-07-24] MEDS ORDERED: DRY MOUTH SPRAY 44.3 SPRAY/44.3 ML SPRAY MUCOUS MEM PRN (14:06)
[2022-07-24] MEDS ORDERED: SCOPOLAMINE 1 MG/72 HR PATCH TRANSDERM SCH (14:15)
[2022-07-24 15:25] VITALS: BP 113/64
[2022-07-24] MEDS: HYDROmorphone 1 MG/ML 1 ML SYRINGE IVP PRN (20:27)
[2022-07-25] MEDS: LORazepam 2 MG/ML INJ IV PRN ×2 (10:31→21:49)
[2022-07-25 11:20] VITALS: PULSE 61
--- NOTE | 2022-07-25 14:29 | P.HPIM ---
History of Present Illness H&P Date: 07/25/22 Patient is a 77-year-old female with a past medical history of COPD presents to ER with complaints of worsening shortness of breath for the past 7 days and weight gain about 3 pounds. Initial laboratory test showed WBC 3.9 hemoglobin 12.0 and platelets 145 BUN 23 and creatinine 0.86 AST 65 ALT 34 alk phos 186 and proBNP 1700 and procalcitonin level was 0.13. Albumin 2.5. Urinalysis negative for infection. COVID-19, influenza A B and RSV PCR not detected. 07/09/2022 Patient is currently lying in the bed. Patient is on Airvo 35 L at 30% FiO2. Patient has been afebrile overnight. Was having cough with brown sputum production. No complaints of chest pain.No nausea vomiting abdominal pain or diarrhea. Chest x-ray showed improving volume overload or pulmonary edema. Laboratory data showed WBC 3.3 hemoglobin 12.2 and platelets 136 INR 1.7 Sodium 137 potassium 4.1 chloride 103 bicarb is 30 BUN 25 and creatinine 0.98 and blood sugar is 197. Calcium 7.9. 07/10/2022 Patient is seen and evaluated in follow-up today with pulmonary and cardiology following. Patient continues to have shortness of breath and maintained on oxygen with pulmonary following and patient is receiving IV ceftriaxone and has finished a Zithromax. Patient is on Coumadin with pharmacy to dose and also being maintained on IV Lasix with dose being adjusted to 40 mg twice daily and will continue. Patient does continue on IV steroids and would recommend monitoring Accu-Cheks before meals and at bedtime and use sliding scale as needed. Patient does not normally wear oxygen in the outpatient setting and recommended wean FiO2 as tolerated and will evaluate for possible home O2 requirements. Patient is currently afebrile, denies chest pain or palpitations. Patient is reporting that she is eating with occasional nausea with no vomiting noted. Encouraged increase activity as tolerated. 07/11/2022 Patient is seen and evaluated in follow-up today currently maintained on IV Lasix and kidney function stable and diuresing well with cardiology and pulmonary following closely. Patient also maintained on IV steroids along with breathing treatments and 3 L of oxygen via nasal cannula. Patient continues to report a junky cough although reports is having some improvements in her shortness of breath. Patient reports not a significant improvement. Patient is afebrile maintained on antibiotics and will continue for now. Patient denies worsening shortness of breath, chest pains, or palpitations. No reports of nausea or vomiting and patient is tolerating diet. Encouraged increased activity as tolerated. Recommend follow-up labs to monitor electrolytes and kidney functions closely. 07/12/2022 Patient is seen and evaluated in follow-up today and is maintained on telemetry monitoring with pulmonary and cardiology following. Patient reports there was an episode of atrial for ablation with RVR and cardiology was notified and given an extra dose of metoprolol and is currently sinus rhythm. Patient continues to report shortness of breath with wheezing and crackles noted. Patient is hair nued on IV steroids along with breathing treatments and pulmonary is following closely. Patient reports she feels quite frustrated with not getting better and wants to go home. Her follow-up LENNY for possible watchman device has been rescheduled. Patient is currently afebrile with no reports of chest pain or palpitations. No reports of nausea vomiting and patient tolerating diet. Encouraged oral intake. 07/13/2022 Patient is seen in follow-up this morning continues to be short of breath with wheezing and bronchospastic. Patient is maintained on inhalers along with breathing treatments, IV steroids, IV ceftriaxone along with IV Lasix with pulmonary and cardiology following closely. Patient is continued on 3 L via nasal cannula and reports does not wear any oxygen at home. Patient appears winded during conversation and takes multiple breaks to catch her breath. Will follow up on chest x-ray in the a.m. Patient is currently afebrile with no reports of chest pain or palpitations. Patient continues with a cough with difficulty expectorating any phlegm. No reports of nausea vomiting and patient is tolerating diet encourage small frequent meals. Patient is weak and with prolonged hospitalization would recommend possible physical therapy evaluation. Patient's blood sugars being monitored with Accu-Cheks and has sliding scale and will continue with current regimen. 07/14/2022 Patient is currently resting in the bed. Awake alert and oriented x3. Currently requiring 2 L oxygen via nasal cannula. Still complains of shortness of breath and tightness. Bilateral wheezing and scattered rhonchi especially in the basilar on physical exam. No complaints of chest pain. No nausea vomiting abdominal pain or diarrhea. Tolerating oral diet. Was also complaining of constipation. Patient is being continued on IV Solu-Medrol 60 mg every 6 hourly and is also on Lasix 40 mg every 12 IV. Pulmonary and cardiology is on board. Most recent Laboratory data reviewed. 07/15/2022 Patient states that she feels better today. Breathing status is improving. Requiring oxygen at 2 L via nasal cannula. No complaints of chest pain. Less bronchospastic today. Otherwise patient is being continued on Solu-Medrol 60 mg every 6 hourly patient is also on Lasix 40 mg every 12. Laboratory showed WBC 9.3 hemoglobin 14.1 platelets 127 INR 2.8 BUN 15 creatinine 1.14 and blood sugar is 235. Patient will be started on insulin regimen. 07/16/2022 Patient is seen and evaluated and follow-up this morning with cardiology and pulmonary following. Patient is maintained on IV steroids along with breathing treatments and weaning as tolerated down to 2 L via nasal cannula. Patient also maintained on IV Lasix and continues to have lower extremity edema and continued shortness of breath. Kidney functions are being monitored and creatinine trending down. Patient is maintained on Coumadin with pharmacy to dose and INR was 3.0 today. Recommend monitoring INR levels closely. Patient is requiring assistance with getting up and will add PT/OT therapy for evaluation. Patient reports she will be going home once stabilized and discharged. Patient is currently afebrile with no reports of chest pain or palpitations. Patient continues to report shortness of breath although no worse. Patient has had prolonged hospitalization extremely slow to improve. Will follow-up labs in the a.m. 07/17/2022 Patient is seen and evaluated in follow-up today with pulmonary and cardiology following. Patient has been switched to oral Lasix elbow continues to have significant lower extremity edema with shortness of breath and overload. We'll transition Lasix back to IV at 60 mg twice a day and follow-up with repeat labs. Current creatinine is 1.2. Patient reports is making urine but unsure how much in intake and output is not being documented strictly. Patient did have some increased abdominal distention and reports not having much of bowel movements will order abdominal x-ray and follow-up chest x-ray from today is pending. Patient is currently afebrile and denies chest pain or palpitations. No reports of nausea or vomiting and patient is tolerating diet. 07/18/2022 Patient is seen in follow-up this morning continues to report shortness of breath and maintained on 2 L via nasal cannula. Cardiology following recommending transitioning back to oral Lasix although pulmonary has continued with IV Lasix for continued lower extremity edema. Will add compression stockings as well. Patient does continue with weakness and has had prolonged hospitalization will consult PT/OT therapy and discuss again further with case management along with patient about possible ECF. Patient reports she will be returning home although given her significant comorbidities and prolonged hospitalization patient may benefit from ECF for continued strength and mobility prior to returning home. Patient is currently afebrile denies chest pain or palpitations. Patient is tolerating oral intake and was continued on IV steroids which are being transitioned to oral prednisone. 07/19/2022 Patient is seen and evaluated in follow-up this morning currently sitting up in the chair with at bedside. Patient is continued on 2 L via nasal cannula and patient reports dyspnea although feels somewhat improved. Patient is very slow to progress and is continued on breathing treatments and has been transitioned oral steroids. Patient's blood sugars elevated and will increase long-acting and continue sliding scale monitor Accu-Cheks before meals and at bedtime. Patient also continues on IV Lasix although having some worsening in kidney functions and nephrology was consulted. Recommend fluid restrictions and awaiting abdominal ultrasound. Patient will be continued on IV Lasix and attempted CAMRYN hose although unable to tolerate. Patient does continue with bilateral lower extremity edema 2+ pitting. Afebrile with no reports of nausea or vomiting noted. Patient continues to report shortness of breath and denies chest pain or palpitations. 07/20/2022 Patient is seen and evaluated in follow-up this morning currently getting up to work with physical therapy. Patient does continue with significant weakness and reports she would like to be held to return home. Case management is following in the event patient does agree to go to rehab. Patient also continues on 2 L via nasal cannula and does not wear oxygen outpatient. Patient being followed by cardiology along with pulmonary and nephrology. Patient does continue with significant lower extremity edema and is being started on IV Lasix drip and also continued with metolazone. patient was noted to have ascites noted on imaging of the abdomen. Patient is afebrile report shortness of breath with exertion although reports is somewhat improved and denies chest pain or palpitations. Patient is tolerating diet although having some tongue and mouth pain. Appears to be oral thrush and will add nystatin swish and swallow. Recommend continue monitoring Accu-Cheks before meals and at bedtime and continue with current medication regimen. 07/21/2022 Patient is seen this morning continues on IV Lasix drip with multiple medical consultations following including nephrology, cardiology, pulmonary. Patient continues with generalized edema noted with significant lower extremity edema. Patient continues to endorse shortness of breath and currently maintained on 2 L. Patient does have mouth pain although feels slightly improved and maintained on nystatin. Patient is afebrile with no reports of chest pain or palpitations noted. Oral intake is fair. Blood sugars have been. Will will continue monitoring Accu-Cheks per protocol and will continue current regimen. Patient is receiving DuoNeb treatments as well as oral steroids at this point. Patient with prolonged hospitalization and significant weakness would recommend physical therapy daily. Encouraged increased activity as tolerated with getting up out of the bed more frequently. Patient reports to be lethargic and fatigued today. 07/22/2022 Patient is seated follow-up this morning maintained on IV Lasix and being started on IV Diamox with nephrology following. Cardiology and pulmonary following as well patient is maintained on oral prednisone along with breathing treatments and continued on 2 L via nasal cannula. Patient reports continued shortness of breath and having some abdominal discomfort although generalized. Patient did have an abdominal x-ray which was showing some ascites and interventional radiology pain consulted for possible paracentesis for evaluation. Patient is having some variable blood sugars are mildly elevated and will slightly increase long-acting and continue with sliding scale and Accu- Cheks before meals and at bedtime. Recommend continue with fluid extractions and consistent carb diet. Patient with significant weakness being followed by physical therapy. Family at bedside with questions and concerns were answered to the best of our ability. Patient is currently afebrile denies chest pain or palpitations. 07/23/2022 patient is seen and evaluated in follow-up today with multiple family members present. Patient is maintained on Lasix drip along with IV Diamox and continues to have lower extremity weakness. Edema. Patient is lethargic and somewhat confused with continued shortness of breath. Patient maintained on 2-3 L via nasal cannula and will continue. Ammonia level ordered along with ABG and CT of the brain. Patient's kidney functions slightly worsened and creatinine is 2.2 today. Patient is afebrile maintained on nystatin swish and swallow. Patient not eating very much and dietary is consulted. Chest x-ray shows continued congestion and there is ascites noted on the abdominal x-ray. Interventional radiology was consulted although patient received her Coumadin and INR is 2.2 today. Will hold Coumadin and follow up with repeat labs in the a.m. for poss ible interventional radiology evaluation for palliative paracentesis. Overall prognosis remains extremely guarded at this time. 07/24/2022 Patient is seen in follow-up this morning and has flipped to inpatient hospice per family request with [facility] services following. Patient has been clinically declining despite all measures and becoming more obtunded and unable to tolerate any oral intake and family did meet with [facility] for informational and agreed to sign on with comfort. Patient was no code and this was discussed with family prior to this decision. Patient maintained on comfort measures only and is obtunded and unresponsive and appears comfortable and asleep. Patient does have an ALLERGY to morphine and is currently maintained on IV push Dilaudid 1 mg every 2 hours as needed along with scopolamine patch and IV Ativan. Patient does get restless at times and does have Ativan as needed. Encouraged family and nursing staff to notify if needed. We'll continue to follow and overall prognosis is extremely poor and guarded Review of systems: Unable to obtain as patient is obtunded and unresponsive All medications have been reviewed Active Medications Acetaminophen (Acetaminophen Suppository 650 Mg Supp) 650 mg RECTAL Q4HR PRN PRN Reason: Fever and/or Mild Pain Atropine Sulfate (Atropine Ophth Soln 1% 5ml Btl) 2 drops SUBLINGUAL Q4HR PRN PRN Reason: Excess Secretions Glycopyrrolate (Glycopyrrolate 0.2 Mg/Ml 2 Ml Vial) 0.1 mg IVP Q6HR PRN PRN Reason: Excess Secretions Hydromorphone HCl (Hydromorphone 1 Mg/Ml 1 Ml Syringe) 1 mg IVP Q2HR PRN PRN Reason: Moderate Pain (Scale 4 to 6) Last Admin: 07/24/22 20:27 Dose: 1 mg Lorazepam (Lorazepam 2 Mg/Ml Inj) 1 mg IV Q4HR PRN PRN Reason: Anxiety Last Admin: 07/25/22 10:31 Dose: 1 mg Ondansetron HCl (Ondansetron 4 Mg/2 Ml Vial) 4 mg IVP Q8HR PRN PRN Reason: Nausea/emesis Saliva Substitute (Dry Mouth [place] 44.3 [place]/44.3 Ml [place]) 1 spray MUCOUS MEM QID PRN PRN Reason: Dry Mouth Scopolamine (Scopolamine 1 Mg/72 Hr Patch) 1 patch TRANSDERM Q72H [facility] Last Admin: 07/24/22 16:05 Dose: 1 patch PHYSICAL EXAMINATION: Patient is obtunded, not responding, alert 0, sleep and unarousable, appears comfortable HEENT: Normocephalic. Neck is supple. Pupils reactive. Nostrils clear. Dry mucous membranes Neck reveals no JVD, carotid bruits, or thyromegaly. CHEST EXAMINATION: Trachea is central. Symmetrical expansion. Bilateral diffuse rhonchi with crackles at the bases. Bibasilar diminished sounds. Nonlabored breathing. CARDIAC: S1, S2 are muffled, irregular ABDOMEN: Soft. Edematous, obese, Bowel sounds present. No organomegaly. No abdominal bruits. Extremities: 2+ bilateral pedal edema No clubbing or cyanosis Neurologically obtunded and unresponsive. Diffusely weak Skin: No rash or skin lesions. Musculoskeletal: No joint swelling or deformity. Assessment: Worsening shortness of breath which is multifactorial, due to acute CHF exacerbation as well as moderate persistent asthma Moderate persistent asthma with exacerbation Mouth and tongue pain, secondary to oral candidiasis Confusion, multifactorial possibly secondary to toxic metabolic acidosis from medication effect or worsening kidney and liver functions Hyperbilirubinemia Acute CHF with diastolic dysfunction with continued bilateral lower extremity edema , currently on IV Lasix drip Acute tracheobronchitis, pneumonia ruled out Obstructive sleep apnea not on CPAP at home Paroxysmal atrial fibrillation on anticoagulation with Coumadin. currently rate controlled, Left atrial thrombus and currently being anticoagulated with warfarin. Patient was supposed to get LENNY, Watchman procedure as an outpatient at [facility] and will follow-up outpatient Hypertension, currently hypotensive concerned for overdiuresis with hypovolemia while maintained on Lasix drip Morbid obesity with BMI of 40.7 Diabetes type 2, uncontrolled with hyperglycemia, also steroid effect History of nonalcoholic hepatic steatosis History of GERD status post Ambrose fundoplication Hypothyroidism Right ovarian mass currently under investigation as an outpatient Prior history of smoking quit 36 years ago History of subdural hematoma in January 2022 DVT prophylaxis, currently on Coumadin GI prophylaxis No code Plan: Patient has been flipped to inpatient hospice GIP with [facility] hospice services and comfort measures only per family request Recommend continue with current comfort measures and will continue monitor closely Overall prognosis remains extremely poor and guarded The impression and plan of care has been dictated by Melissa Diaz, Nurse Practitioner as directed. Dr. Suresh MD I have performed a history and examination and MDM of this patient, discussed the same with the dictator, and agree with the dictator's assessment and plan as written ,documented as a scribe. Based on total visit time, I have performed more than 50% of the visit. Past Medical History Past Medical History: Atrial Fibrillation, Asthma, Heart Failure, COPD, Diabetes Mellitus, GERD/Reflux, Hypertension, Liver Disease, Osteoarthritis (OA), Supraventricular Tachycardia (SVT), Thyroid Disorder Additional Past Medical History / Comment(s): SEE CARDIOLOGY HISTORY PROVIDED BY DR. ELVIRA STRICKLAND. IP @ [facility] FROM [id number] FOR PULMONARY EDEMA, CHF, CELLULITIS. INCONTINENT/USES PADS. O2 AT HOME? DYSPHAGIA FROM GERD. hx migraines. LEFT "eye stroke". Hiatal hernia. NON ALCHOLIC CIRRHOSIS, May 2022- pt had blood clot on heart was supposed to have Watchman put in at [facility], December 2021-brain bleed History of Any Multi-Drug Resistant Organisms: None Reported Past Surgical History: Breast Surgery, Cholecystectomy, Hysterectomy Additional Past Surgical History / Comment(s): Rectocele. Breast biopsies. Ambrose fundoplication. Past Anesthesia/Blood Transfusion Reactions: Postoperative Nausea & Vomiting (PONV) Smoking Status: Former smoker - Past Family History Mother Family Medical History: Cancer Additional Family Medical History / Comment(s): lung Father Family Medical History: Cancer Additional Family Medical History / Comment(s): lung Brother(s) Family Medical History: Cancer, Liver Disease Additional Family Medical History / Comment(s): colon Medications and Allergies Home Medications Medication Instructions Recorded Confirmed Type Citalopram Hydrobromide [CeleXA] 20 mg PO HS 02/28/15 07/24/22 History Albuterol Nebulized [Ventolin 2.5 mg INHALATION RT-Q6H PRN 10/22/19 07/24/22 History Nebulized] Ascorbic Acid [Vitamin C] 1,000 mg PO DAILY 10/22/19 07/24/22 History Lansoprazole [Prevacid] 30 mg PO DAILY 10/22/19 07/24/22 History Levothyroxine Sodium [Euthyrox] 50 mcg PO DAILY 10/22/19 07/24/22 History Pramipexole [Mirapex] 0.125 mg PO BID 10/22/19 07/24/22 History Spironolactone [Aldactone] 25 mg PO BID 10/22/19 07/24/22 History atenoloL 100 mg PO DAILY PRN 12/04/19 07/24/22 History Acetaminophen Tab [Tylenol] 650 mg PO Q6H PRN 06/18/22 07/24/22 History Albuterol Inhaler [Ventolin Hfa 2 puff INHALATION RT-Q6H PRN 06/18/22 07/24/22 History Inhaler] Cholecalciferol [Vitamin D3 (25 25 mcg PO DAILY 06/18/22 07/24/22 History Mcg = 1000 Iu)] Ferrous Sulfate [Iron (65 MG 325 mg PO Q48H 06/18/22 07/24/22 History Elemental)] Magnesium 250 mg PO DAILY 06/18/22 07/24/22 History Metoprolol Tartrate [Lopressor] 50 mg PO BID 06/18/22 07/24/22 History Warfarin [Coumadin] 0.5 mg PO SUMOTUWETHFR 06/18/22 07/24/22 History Furosemide [Lasix] 40 mg PO BID@0900,1600 07/08/22 07/24/22 History Warfarin [Coumadin] 1 mg PO SA 07/08/22 07/24/22 History Allergies Allergy/AdvReac Type Severity Reaction Status Date / Time adhesive tape Allergy blisters Verified 07/24/22 14:38 morphine Allergy Vomiting Verified 07/24/22 14:38 Penicillins Allergy numbness Verified 07/24/22 14:38 of lips, hands , feet prochlorperazine Allergy Unknown Verified 07/24/22 14:38 [From Compazine] prochlorperazine edisylate Allergy Unknown Verified 07/24/22 14:38 [From Compazine] prochlorperazine maleate Allergy Unknown Verified 07/24/22 14:38 [From Compazine] esomeprazole magnesium AdvReac Severe BURNING Verified 07/24/22 14:38 [From Nexium] PAIN fluticasone AdvReac Unknown Verified 07/24/22 14:38 [From Advair Diskus] salmeterol AdvReac Unknown Verified 07/24/22 14:38 [From Advair Diskus] Physical Exam Vitals: Vital Signs Pulse Resp BP Pulse Ox 07/25/22 11:19 61 20 96 07/25/22 08:00 95 20 94 L 07/25/22 07:44 94 L 07/24/22 15:24 89 113/64 Intake and Output 07/24/22 07/25/22 07/25/22 22:59 06:59 14:59 Other: Voiding Method Indwelling Catheter
[2022-07-25] MEDS: HYDROmorphone 1 MG/ML 1 ML SYRINGE IVP PRN ×3 (14:42→23:57)
[2022-07-26] MEDS: HYDROmorphone 1 MG/ML 1 ML SYRINGE IVP PRN ×3 (02:02→08:26)
[2022-07-26] MEDS: LORazepam 2 MG/ML INJ IV PRN ×2 (02:02→10:05)
[2022-07-26] MEDS: GLYCOPYRROLATE 0.2 MG/ML 2 ML VIAL IVP PRN (09:19)
[2022-07-26 09:29] VITALS: RESP 8
[2022-07-26] MEDS: HYDROmorphone 1 MG/ML 1 ML SYRINGE IVP SCH ×6 (11:24→22:12)
[2022-07-26] MEDS: ATROPINE OPHTH SOLN 1% 5ML BTL SUBLINGUAL PRN ×2 (11:47→18:23)
[2022-07-26] MEDS: LORazepam 2 MG/ML INJ IV SCH ×3 (14:27→22:12)
[2022-07-27] MEDS: HYDROmorphone 1 MG/ML 1 ML SYRINGE IVP SCH ×2 (00:06→02:32)
[2022-07-27] MEDS: LORazepam 2 MG/ML INJ IV SCH (02:32)
[2022-07-27] MEDS: GLYCOPYRROLATE 0.2 MG/ML 2 ML VIAL IVP PRN (03:37)
--- NOTE | 2022-07-27 04:36 | P.PN ---
Subjective Progress Note Date: 07/26/22 07/25/2022 Patient is seen in follow-up this morning and has flipped to inpatient hospice per family request with [facility] services following. Patient has been clinically declining despite all measures and becoming more obtunded and unable to tolerate any oral intake and family did meet with [facility] for informational and agreed to sign on with comfort. Patient was no code and this was discussed with family prior to this decision. Patient maintained on comfort measures only and is obtunded and unresponsive and appears comfortable and asleep. Patient does have an ALLERGY to morphine and is currently maintained on IV push Dilaudid 1 mg every 2 hours as needed along with scopolamine patch and IV Ativan. Patient does get restless at times and does have Ativan as needed. Encouraged family and nursing staff to notify if needed. We'll continue to follow and overall prognosis is extremely poor and guarded 07/26/2022 Patient is seen this morning currently appears comfortable with comfort measures only in [facility] following. Family members at bedside and patient is b eing maintained on as needed Dilaudid with Ativan. Continue comfort measures and will continue to follow with [facility]. Review of systems: Unable to obtain as patient is obtunded and unresponsive All medications have been reviewed Active Medications Acetaminophen (Acetaminophen Suppository 650 Mg Supp) 650 mg RECTAL Q4HR PRN PRN Reason: Fever and/or Mild Pain Atropine Sulfate (Atropine Ophth Soln 1% 5ml Btl) 2 drops SUBLINGUAL Q4HR PRN PRN Reason: Excess Secretions Glycopyrrolate (Glycopyrrolate 0.2 Mg/Ml 2 Ml Vial) 0.1 mg IVP Q6HR PRN PRN Reason: Excess Secretions Hydromorphone HCl (Hydromorphone 1 Mg/Ml 1 Ml Syringe) 1 mg IVP Q2HR PRN PRN Reason: Moderate Pain (Scale 4 to 6) Last Admin: 07/24/22 20:27 Dose: 1 mg Lorazepam (Lorazepam 2 Mg/Ml Inj) 1 mg IV Q4HR PRN PRN Reason: Anxiety Last Admin: 07/25/22 10:31 Dose: 1 mg Ondansetron HCl (Ondansetron 4 Mg/2 Ml Vial) 4 mg IVP Q8HR PRN PRN Reason: Nausea/emesis Saliva Substitute (Dry Mouth [place] 44.3 [place]/44.3 Ml [place]) 1 spray MUCOUS MEM QID PRN PRN Reason: Dry Mouth Scopolamine (Scopolamine 1 Mg/72 Hr Patch) 1 patch TRANSDERM Q72H [facility] Last Admin: 07/24/22 16:05 Dose: 1 patch PHYSICAL EXAMINATION: Patient is obtunded, not responding, alert 0, sleep and unarousable, appears comfortable HEENT: Normocephalic. Neck is supple. Pupils reactive. Nostrils clear. Dry mucous membranes Neck reveals no JVD, carotid bruits, or thyromegaly. respiratory: Trachea is central. Symmetrical expansion. Bilateral diffuse rhonchi with crackles noted. Nonlabored breathing. CARDIAC: S1, S2 are muffled, irregular ABDOMEN: Soft. Edematous, obese, Bowel sounds present. No organomegaly. No abdominal bruits. Extremities: 2+ bilateral pedal edema No clubbing or cyanosis Neurologically obtunded and unresponsive. Diffusely weak Skin: No rash or skin lesions. Musculoskeletal: No joint swelling or deformity. Assessment: Worsening shortness of breath which is multifactorial, due to acute CHF exacerbation as well as moderate persistent asthma Moderate persistent asthma with exacerbation Mouth and tongue pain, secondary to oral candidiasis Confusion, multifactorial possibly secondary to toxic metabolic acidosis from medication effect or worsening kidney and liver functions Hyperbilirubinemia Acute CHF with diastolic dysfunction with continued bilateral lower extremity edema , currently on IV Lasix drip Acute tracheobronchitis, pneumonia ruled out Obstructive sleep apnea not on CPAP at home Paroxysmal atrial fibrillation on anticoagulation with Coumadin. currently rate controlled, Left atrial thrombus and currently being anticoagulated with warfarin. Patient was supposed to get LENNY, Watchman procedure as an outpatient at [facility] and will follow-up outpatient Hypertension, currently hypotensive concerned for overdiuresis with hypovolemia while maintained on Lasix drip Morbid obesity with BMI of 40.7 Diabetes type 2, uncontrolled with hyperglycemia, also steroid effect History of nonalcoholic hepatic steatosis History of GERD status post Ambrose fundoplication Hypothyroidism Right ovarian mass currently under investigation as an outpatient Prior history of smoking quit 36 years ago History of subdural hematoma in January 2022 DVT prophylaxis, currently on Coumadin GI prophylaxis No code Plan: Patient is now hospice GIP with [facility] hospice services and comfort measures only per family request Recommend continue with current comfort measures and will continue monitor closely Overall prognosis remains extremely poor and guarded The impression and plan of care has been dictated by Melissa Diaz, Nurse Practitioner as directed. Dr. Suresh MD I have performed a history and examination and MDM of this patient, discussed the same with the dictator, and agree with the dictator's assessment and plan as written ,documented as a scribe. Based on total visit time, I have performed more than 50% of the visit. Objective - Vital Signs Vital signs: Vital Signs Temp Pulse 61 07/25/22 11:19 Resp 8 L 07/26/22 08:00 BP 113/64 07/24/22 15:24 Pulse Ox 96 07/25/22 11:19 FiO2 Intake & Output 07/25/22 07/26/22 07/26/22 18:59 06:59 18:59 Output Total 600 125 Balance -600 -125 Output: Urine 600 125 Other: Voiding Method Indwelling Catheter Indwelling Catheter
--- NOTE | 2022-07-27 19:35 | P.DS ---
Providers Date of admission: 07/24/22 13:58 Expected date of discharge: 07/27/22 Attending physician: Salinas Prince Primary care physician: Stated None Hospital Course: Preliminary cause of Liver failure Final diagnosis Worsening shortness of breath which is multifactorial, due to acute CHF exacerbation as well as moderate persistent asthma Moderate persistent asthma with exacerbation Mouth and tongue pain, secondary to oral candidiasis Confusion, multifactorial possibly secondary to toxic metabolic acidosis from medication effect or worsening kidney and liver functions Hyperbilirubinemia Acute CHF with diastolic dysfunction with continued bilateral lower extremity edema Acute tracheobronchitis, pneumonia ruled out Obstructive sleep apnea Paroxysmal atrial fibrillation on anticoagulation with Coumadin Left atrial thrombus Hypertension Morbid obesity with BMI of 40.7 Diabetes type 2, uncontrolled with hyperglycemia, also steroid effect History of nonalcoholic hepatic steatosis History of GERD status post Ambrose fundoplication Hypothyroidism Right ovarian mass currently under investigation as an outpatient Prior history of smoking quit 36 years ago History of subdural hematoma in January 2022 DVT prophylaxis, currently on Coumadin GI prophylaxis No code Discharge disposition Patient has . According to nursing documentation, time of was 411 on 07/27/2022. Patient was on [facility] hospice comfort measures GIP with family present Hospital course Patient was recently admitted with shortness of breath CHF and COPD exacerbation is also extensive cardiac history including an atrial thrombus as noted in the setting and was scheduled for LENNY with possible watchman procedure at [facility] although was here and hospitalized. Patient showed clinical decline including worsening liver functions and was continued as no code. Family discussed further given her continued clinical decline in respiratory status recommending hospice and met with [facility] and met inpatient services and signed on GIP. Patient was maintained on as needed Dilaudid along with as needed Ativan. Please refer to other consultation notes for further HPI. Patient 411 on 07/27/2022. The impression and plan of care has been dictated by Melissa Diaz, Nurse Practitioner as directed. Dr. Suresh MD I have performed a history and examination and MDM of this patient, discussed the same with the dictator, and agree with the dictator's assessment and plan as written ,documented as a scribe. Based on total visit time, I have performed more than 50% of the visit. Patient Condition at Discharge: Poor Plan - Discharge Summary New Discharge Prescriptions: No Action Citalopram Hydrobromide [CeleXA] 20 mg PO HS Spironolactone [Aldactone] 25 mg PO BID Albuterol Nebulized [Ventolin Nebulized] 2.5 mg INHALATION RT-Q6H PRN PRN Reason: Shortness Of Breath Lansoprazole [Prevacid] 30 mg PO DAILY Pramipexole [Mirapex] 0.125 mg PO BID Levothyroxine Sodium [Euthyrox] 50 mcg PO DAILY Ascorbic Acid [Vitamin C] 1,000 mg PO DAILY atenoloL 100 mg PO DAILY PRN PRN Reason: HIGH BLOOD PRESSURE Cholecalciferol [Vitamin D3 (25 Mcg = 1000 Iu)] 25 mcg PO DAILY Metoprolol Tartrate [Lopressor] 50 mg PO BID Acetaminophen Tab [Tylenol] 650 mg PO Q6H PRN PRN Reason: Pain Or Fever > 100.5 Magnesium 250 mg PO DAILY Warfarin [Coumadin] 1 mg PO SA Albuterol Inhaler [Ventolin Hfa Inhaler] 2 puff INHALATION RT-Q6H PRN PRN Reason: Shortness Of Breath Ferrous Sulfate [Iron (65 MG Elemental)] 325 mg PO Q48H Warfarin [Coumadin] 0.5 mg PO SUMOTUWETHFR Furosemide [Lasix] 40 mg PO BID@0900,1600 Discharge Medication List Citalopram Hydrobromide [CeleXA] 20 mg PO HS 02/28/15 [History] Albuterol Nebulized [Ventolin Nebulized] 2.5 mg INHALATION RT-Q6H PRN 10/22/19 [History] Ascorbic Acid [Vitamin C] 1,000 mg PO DAILY 10/22/19 [History] Lansoprazole [Prevacid] 30 mg PO DAILY 10/22/19 [History] Levothyroxine Sodium [Euthyrox] 50 mcg PO DAILY 10/22/19 [History] Pramipexole [Mirapex] 0.125 mg PO BID 10/22/19 [History] Spironolactone [Aldactone] 25 mg PO BID 10/22/19 [History] atenoloL 100 mg PO DAILY PRN 12/04/19 [History] Acetaminophen Tab [Tylenol] 650 mg PO Q6H PRN 06/18/22 [History] Albuterol Inhaler [Ventolin Hfa Inhaler] 2 puff INHALATION RT-Q6H PRN 06/18/22 [History] Cholecalciferol [Vitamin D3 (25 Mcg = 1000 Iu)] 25 mcg PO DAILY 06/18/22 [History] Ferrous Sulfate [Iron (65 MG Elemental)] 325 mg PO Q48H 06/18/22 [History] Magnesium 250 mg PO DAILY 06/18/22 [History] Metoprolol Tartrate [Lopressor] 50 mg PO BID 06/18/22 [History] Warfarin [Coumadin] 0.5 mg PO SUMOTUWETHFR 06/18/22 [History] Furosemide [Lasix] 40 mg PO BID@0900,1600 07/08/22 [History] Warfarin [Coumadin] 1 mg PO SA 07/08/22 [History] Discharge Disposition: - Preliminary Cause of Preliminary Cause of : liver failure
== END 2022-07-27 09:25 | disposition expired | DRG 951 ==
LOC: 3SCARD 13:58
PROVIDERS: ADMIT Hospitalist; ATTEND Hospitalist
DX: Z51.5 Encounter for palliative care (principal); I50.33 Acute on chronic diastolic (congestive) heart failure; E87.20 Acidosis, unspecified; Z68.41 Body mass index [BMI] 40.0-44.9, adult; J45.41 Moderate persistent asthma with (acute) exacerbation; Z66 Do not resuscitate; I11.0 Hypertensive heart disease with heart failure; E80.6 Other disorders of bilirubin metabolism; E66.01 Morbid (severe) obesity due to excess calories; E03.9 Hypothyroidism, unspecified; K75.81 Nonalcoholic steatohepatitis (NASH); B37.9 Candidiasis, unspecified; K21.9 Gastro-esophageal reflux disease without esophagitis; R19.09 Other intra-abdominal and pelvic swelling, mass and lump; I48.0 Paroxysmal atrial fibrillation; Z79.01 Long term (current) use of anticoagulants; J20.9 Acute bronchitis, unspecified; G47.33 Obstructive sleep apnea (adult) (pediatric); E11.65 Type 2 diabetes mellitus with hyperglycemia; Z87.891 Personal history of nicotine dependence; Z87.820 Personal history of traumatic brain injury; Z88.5 Allergy status to narcotic agent; Z88.0 Allergy status to penicillin; Z88.8 Allergy status to other drugs, medicaments and biological substances
CPT/HCPCS: 94760